=== PATIENT | male | born 1950 | race Caucasian/White ===

== ENCOUNTER 2018-07-22 12:44 | Inpatient (IN) ==
[2018-07-22] MEDS ORDERED: Famotidine PF Inj 20 MG/2 ML Vial IV.PUSH ONE (13:26)
[2018-07-22 13:47] LABS: Baso # (Auto) 0.1 th/mm3 (0.0-0.2); Baso % (Auto) 0.3 % (0.0-2.0); Eos % (Auto) 0.2 % (0.0-4.0); Hematocrit 38.2 % (39.0-51.0); Hemoglobin 12.7 gm/dL (13.0-17.0); Lymph # (Auto) 1.1 th/mm3 (1.0-4.8); Lymph % (Auto) 5.3 % (9.0-44.0); Mean Corpuscular HGB Conc 33.2 % (32.0-36.0); Mean Corpuscular Hemoglobin 31.6 pg (27.0-34.0); Mean Corpuscular Volume 95.1 fL (80.0-100.0); Mean Platelet Volume 8.1 fL (7.0-11.0); Mono # (Auto) 1.1 th/mm3 (0.0-0.9); Mono % (Auto) 5.2 % (0.0-8.0); Neut # (Auto) 18.8 th/mm3 (1.8-7.7); Platelet Count 263 th/mm3 (150-450); Red Blood Count 4.02 mil/mm3 (4.50-5.90); Red Cell Distribution Width 14.9 % (11.6-17.2); White Blood Count 21.1 th/mm3 (4.0-11.0)
[2018-07-22] MEDS ORDERED: Vancomycin Inj 1,200 MG in Sodium Chlor 0.9% Inj 250 ML IV.SIG STA (13:52)
[2018-07-22] MEDS ORDERED: Piperacil/Tazo 4.5 GM Premix 4.5 GM/100 ML BAG IV.SIG STA (13:52)
[2018-07-22 13:53] LABS: Chloride 99 meq/L (98-107); Potassium 3.9 meq/L (3.5-5.1); Sodium 133 meq/L (136-145)
[2018-07-22 13:57] LABS: Albumin 3.1 g/dL (3.4-5.0); Anion Gap 14 meq/L (5-15); Blood Urea Nitrogen 44 mg/dL (7-18); Calcium 9.1 mg/dL (8.5-10.1); Carbon Dioxide 20.2 meq/L (21.0-32.0); Glucose,Random 89 mg/dL (74-106)
[2018-07-22 14:00] LABS: Alanine Aminotransferase 44 U/L (12-78); Aspartate Aminotransferase 35 U/L (15-37); Glomerular Filtration Rate 38 mL/min (>89)
[2018-07-22] MEDS ORDERED: Sodium Chlor 0.9% Inj 500 ML IV.SIG SCH (14:00)
[2018-07-22] MEDS ORDERED: Sod Chloride 0.9% Inj 1,000 ML IV.SIG SCH (14:00)
[2018-07-22 14:02] LABS: Total Protein 7.7 g/dL (6.4-8.2)
[2018-07-22 14:03] LABS: Alkaline Phosphatase 68 U/L (45-117)
--- NOTE | 2018-07-22 14:03 | XR ---
EXAM DATE: 07/22/2018 1:57 PM EST AGE/SEX: 68 years / Male INDICATIONS: . Chest palpitations. CLINICAL DATA: This is the patient's initial encounter. Patient reports that signs and symptoms have been present for 2 days and indicates a pain score of 4/10. MEDICAL/SURGICAL HISTORY: Hypertension. Myocardial infarction. CABG. Cardiac stent. COMPARISON: None available. . FINDINGS: The cardiac and mediastinal contours are within normal limits. The patient is post median sternotomy. There are chronic appearing interstitial changes within the pulmonary parenchyma. There is no pleural effusion. No suspicious mass is seen. The visualized bony structures demonstrate degenerative changes but are grossly intact. Imaging of the lower neck demonstrates possible subcutaneous emphysema. The patient has not had recen t instrumentation or recent attempted central line placement CT imaging through this area would be wa rranted for further assessment. This is seen bilaterally. CONCLUSION: There is subcutaneous emphysema in the neck bilaterally of uncertain etiology. Chronic interstitial changes within the pulmonary parenchyma. Electronically signed by: Jose Elias Kenney MD 07/22/2018 2:02 PM EST
[2018-07-22] MEDS: Sod Chloride 0.9% Inj 1,000 ML IV.SIG SCH ×2 (14:14→18:50)
[2018-07-22] MEDS ORDERED: Morphine Inj 4 MG/ML Vial IV.PUSH ONE (14:18)
--- NOTE | 2018-07-22 14:26 | XR ---
EXAM DATE: 07/22/2018 2:15 PM EST AGE/SEX: 68 years / Male INDICATIONS: Right foot pain. CLINICAL DATA: This is the patient's initial encounter. Patient reports that signs and symptoms have been present for 3 days and indicates a pain score of 6/10. MEDICAL/SURGICAL HISTORY: None. None. COMPARISON: POI, XR FOOT (MIN 3 VIEWS), RIGHT, 04/24/2018. . FINDINGS: Bony structures are intact and in normal alignment. Osseous density is normal. Soft tissues are unre markable. No radiopaque foreign bodies seen. CONCLUSION: Negative for fracture or dislocation. Followup in 7-10 days is suggested if symptoms persist. Electronically signed by: Daniel Kenney MD 07/22/2018 2:24 PM EST
--- NOTE | 2018-07-22 14:33 | ED ---
HPI General Chief complaint: Respiratory Symptoms Stated complaint: sore throat Time Seen by Provider: 07/22/18 13:09 Source: patient and family Mode of arrival: ambulatory Limitations: no limitations History of Present Illness HPI narrative: Patient is a 68-year-old male, past medical history significant for rheumatoid arthritis, renal stones, hypertension and very artery disease with previous CABG, who presents with complaint of "I feel like sh*t." He states that over the last several days he has had a generalized ill feeling with chills but no fevers. He describes intermittently low abdominal cramping but no diarrhea, constipation, dysuria. He also complains of a sore throat and a feeling of head congestion without headache. He feels like he has had some palpitations but does not admit to any actual chest pain or shortness of breath. Initially he denied vomiting but then remembered that he has had approximately one episode of vomiting each morning. Onset (ago): minute(s) Location: neck, chest and abdomen Severity: mild Pain Consistency: constant Relieving factors: none Exacerbating factors: none Treatments prior to arrival: Reports none Related Data Home Medications Medication Instructions Recorded Confirmed aspirin [Aspir-Low] 81 mg PO HS 07/22/18 07/22/18 folic acid 1 mg PO DAILY 07/22/18 07/22/18 hydralazine 50 mg PO TID 07/22/18 07/22/18 hydrocodone-acetaminophen 1 tab PO Q6H PRN 07/22/18 07/22/18 hydroxychloroquine 200 mg PO BID 07/22/18 07/22/18 lisinopril 20 mg PO DAILY 07/22/18 07/22/18 magnesium 500 mg PO QAM 07/22/18 07/22/18 meloxicam 15 mg PO QPM 07/22/18 07/22/18 methotrexate sodium 8 mg PO QWEEK 07/22/18 07/22/18 omeprazole 20 mg PO QPM 07/22/18 07/22/18 prednisone 2.5 mg PO TID 07/22/18 07/22/18 simvastatin 20 mg PO QAM 07/22/18 07/22/18 Allergies Allergy/AdvReac Type Severity Reaction Status Date / Time No Known Allergies Allergy Uncoded 10/30/13 06:40 Review of Systems ROS: all other systems reviewed are negative PMFSH Medical History Medical History Hypertension (Acute) Kidney stones (Acute) Rheumatoid arthritis (Acute) Surgical History Surgical History H/O heart artery stent (Acute) H/O hernia repair (Acute) H/O knee surgery (Acute) H/O shoulder surgery (Acute) Hx of CABG (Acute) Social History Social History Substance History: No History of Abuse Smoking Status: Former smoker How Often Do You Have a Drink Containing Alcohol: 2 to 4 times a month Recent Travel in [place] within the Last 8 Weeks: No Recent Out of Country Travel within the Last 8 Weeks: No Immunization History Tetanus Immunization: >5 Years Exam Narrative Exam Narrative: GENERAL: Elderly male in no acute distress, hoarse voice SKIN: Focused skin assessment warm/dry. No rashes. Slight erythema to the right fifth digit which he states is chronic and has been treated outpatient with wound care. HEAD: Atraumatic. Normocephalic. EYES: Pupils equal and round. No scleral icterus. No injection or drainage. ENT: No nasal bleeding or discharge. Mucous membranes pink and moist. Posterior oropharynx is without erythema, edema, exudate. No sublingual, submandibular, submental induration/swelling. TMs are normal. Some palpable crepitus in the anterior neck. NECK: Trachea midline. No JVD. CARDIOVASCULAR: Tachycardic but regular. No murmur appreciated. Intact and equal peripheral pulses. RESPIRATORY: No accessory muscle use. Clear to auscultation. Breath sounds equal bilaterally. GASTROINTESTINAL: Abdomen soft, nondistended. Slight tenderness in the suprapubic region. Hepatic and splenic margins not palpable. MUSCULOSKELETAL: No obvious deformities. No clubbing. No cyanosis. No edema. NEUROLOGICAL: Awake and alert. No obvious cranial nerve deficits. Motor grossly within normal limits. Normal speech. PSYCHIATRIC: Anxious. Course Consultations Consultation #1: I spoke with Dr Walton, thoracic surgeon, regarding this patient (with possibility of perforated esophagus with perforated diverticulitis ) and was informed that he does not operate on the esophagus and that I should speak with general surgery. Time: 16:10 Consultation #2: I spoke with Dr Vaz, general surgeon whom also did not feel comfortable with this case. Time: 16:23 Consultation #3: I spoke with Dr Gilbert, vascular surgeon system administration manager (whom also takes call for trauma, thoracic, and general surgery) whom agreed to take on the case and asked that I admit him to the hospitalist service at the [facility]. Time: 16:24 Initial Documented Vital Signs Temperature 98.8 F 07/22/18 12:59 Pulse Rate 119 H 07/22/18 12:59 Respiratory Rate 20 07/22/18 12:59 Blood Pressure 133/86 07/22/18 12:59 Pulse Oximetry 97 07/22/18 12:59 Last Documented Vital Signs Temperature 98.8 F 07/22/18 12:59 Pulse Rate 88 07/22/18 17:30 Respiratory Rate 16 07/22/18 17:30 Blood Pressure 132/81 07/22/18 17:30 Pulse Oximetry 95 07/22/18 17:30 Critical Care Time Critical Care Time: Yes Total Critical Care Time: 35 Attestation: Aggregate critical care time was 35 minutes. Time to perform other separately billable procedures was not included in the critical care time. My time did not include minutes spent treating any other patients simultaneously or on activities that did not directly contribute to the patient's treatment. The services I provided to this patient were to treat and/or prevent clinically significant deterioration that could result in: , disability. I provided critical care services requiring my management, as noted below: Chart data review, documentation time, medication orders and management, vital sign assessments/reviewing monitor data, ordering and reviewing lab tests, ordering and interpreting/reviewing x-rays and diagnostic studies, care of the patient and discussion of the patient with the admitting physicians. Medical Decision Making MDM Narrative Medical decision making narrative: Patient is a 68-year-old male with history of previous CABG and hypertension who presents with complaint of generalized ill feeling, palpitations, sore throat. This has been present for several days. On arrival he is tachycardic but hemodynamically stable and afebrile. EKG was without acute ischemic changes. Labs reveal leukocytosis at which time sepsis protocol was initiated and he was given broad-spectrum antibiotics with fluids. Lactate was normal. Chest x-ray did show subcutaneous emphysema within the neck and CT with contrast of the neck, chest, abdomen,/pelvis were ordered. Imaging showed perforated diverticulitis as well as air within the soft tissues of the neck and around the esophagus and posterior to the mediastinum. There was concern for whether this could be secondary to an esophageal perforation and fluconazole was also ordered. I spoke with Dr. Walton, thoracic surgeon on-call, whom did not feel comfortable with this case. I then spoke with Dr. Vaz, general surgeon on-call whom stated the same. It is spoke with Dr. Gilbert takes call for several of the surgical services whom agreed to take on the case and asked that the patient be admitted to the medical service. (Of note, he believes the subcutaneous emphysema above the diaphragm to be related to a ruptured Zenker diverticulum.) I then spoke with Dr. Livingston, hospitalist on-call, whom agreed to the admission the patient was emergently transferred to the [facility] in [facility]. The patient greatly improved prior to transfer and heart rate normalized with the blood pressure remaining stable. His pain was controlled after the morphine as well. Medical Screen Exam Complete: Yes Emergency Medical Condition: Yes Differential Diagnosis Differential Diagnosis: Differential diagnosis includes but is not limited to hyperthyroidism, influenza, sepsis, urinary tract infection, esophageal rupture. Medical Records Medical records reviewed: Yes I reviewed the patient's medical records. Lab Data Lab results reviewed: Yes I reviewed the patient's lab results. Result diagrams: 07/22/18 13:30 07/22/18 13:30 Lab Results 07/22/18 07/22/18 07/22/18 Range/Units 13:30 13:30 13:30 CBC w Diff Auto diff final WBC 21.1 H (4.0-11.0) th/mm3 RBC 4.02 L (4.50-5.90) mil/mm3 Hgb 12.7 L (13.0-17.0) gm/dL Hct 38.2 L (39.0-51.0) % MCV 95.1 (80.0-100.0) fL MCH 31.6 (27.0-34.0) pg MCHC 33.2 (32.0-36.0) % RDW 14.9 (11.6-17.2) % Plt Count 263 (150-450) th/mm3 MPV 8.1 (7.0-11.0) fL Neut % (Auto) 89.0 H (16.0-70.0) % Lymph % (Auto) 5.3 L (9.0-44.0) % [place] % (Auto) 5.2 (0.0-8.0) % Eos % (Auto) 0.2 (0.0-4.0) % Baso % (Auto) 0.3 (0.0-2.0) % Neut # (Auto) 18.8 H (1.8-7.7) th/mm3 Lymph # (Auto) 1.1 (1.0-4.8) th/mm3 [place] # (Auto) 1.1 H (0.0-0.9) th/mm3 Eos # (Auto) 0.0 (0.0-0.4) th/mm3 Baso # (Auto) 0.1 (0.0-0.2) th/mm3 WBC Differential . Differential Comment . D-Dimer Quant (PE/DVT) 1.45 H (0.00-0.50) mg/L FEU Sodium 133 L (136-145) meq/L Potassium 3.9 (3.5-5.1) meq/L Chloride 99 (98-107) meq/L Carbon Dioxide 20.2 L (21.0-32.0) meq/L Anion Gap 14 (5-15) meq/L BUN 44 H (7-18) mg/dL Creatinine 1.80 H (0.60-1.30) mg/dL Estimated GFR 38 L (>89) mL/min Random Glucose 89 (74-106) mg/dL Lactic Acid (0.4-2.0) mmol/L Calcium 9.1 (8.5-10.1) mg/dL Total Bilirubin 0.8 (0.2-1.0) mg/dL AST 35 (15-37) U/L ALT 44 (12-78) U/L Alkaline Phosphatase 68 (45-117) U/L Troponin I Less than 0.02 L (0.02-0.05) ng/mL B-Natriuretic Peptide (0-100) pg/mL Total Protein 7.7 (6.4-8.2) g/dL Albumin 3.1 L (3.4-5.0) g/dL Ur Collection Type Urine Color (Yellw/Straw) Urine Clarity (Clear) Urine pH (5.0-8.5) Ur Specific [place] (1.002-1.035) Urine Protein (Neg-Trace) mg/dL Urine Glucose (UA) (Negative) mg/dL Urine Ketones (Negative) mg/dL Urine Occult Blood (Negative) Urine Nitrate (Negative) Urine Bilirubin (Negative) Urine Ictotest (Negative) Urine Urobilinogen (Less than 2) mg/dL Ur Leukocyte Esterase (Negative) Urine WBC (0-5) /hpf Ur Squamous Epith Cells (0-5) /hpf Ur Microscopic Review Urine Culture Comments Urine Collection Time hours 07/22/18 07/22/18 07/22/18 Range/Units 13:30 14:08 14:30 CBC w Diff WBC (4.0-11.0) th/mm3 RBC (4.50-5.90) mil/mm3 Hgb (13.0-17.0) gm/dL Hct (39.0-51.0) % MCV (80.0-100.0) fL MCH (27.0-34.0) pg MCHC (32.0-36.0) % RDW (11.6-17.2) % Plt Count (150-450) th/mm3 MPV (7.0-11.0) fL Neut % (Auto) (16.0-70.0) % Lymph % (Auto) (9.0-44.0) % [place] % (Auto) (0.0-8.0) % Eos % (Auto) (0.0-4.0) % Baso % (Auto) (0.0-2.0) % Neut # (Auto) (1.8-7.7) th/mm3 Lymph # (Auto) (1.0-4.8) th/mm3 [place] # (Auto) (0.0-0.9) th/mm3 Eos # (Auto) (0.0-0.4) th/mm3 Baso # (Auto) (0.0-0.2) th/mm3 WBC Differential Differential Comment D-Dimer Quant (PE/DVT) (0.00-0.50) mg/L FEU Sodium (136-145) meq/L Potassium (3.5-5.1) meq/L Chloride (98-107) meq/L Carbon Dioxide (21.0-32.0) meq/L Anion Gap (5-15) meq/L BUN (7-18) mg/dL Creatinine (0.60-1.30) mg/dL Estimated GFR (>89) mL/min Random Glucose (74-106) mg/dL Lactic Acid 2.0 (0.4-2.0) mmol/L Calcium (8.5-10.1) mg/dL Total Bilirubin (0.2-1.0) mg/dL AST (15-37) U/L ALT (12-78) U/L Alkaline Phosphatase (45-117) U/L Troponin I (0.02-0.05) ng/mL B-Natriuretic Peptide 41 (0-100) pg/mL Total Protein (6.4-8.2) g/dL Albumin (3.4-5.0) g/dL Ur Collection Type Clean catch Urine Color Yellow (Yellw/Straw) Urine Clarity Cloudy H (Clear) Urine pH 5.0 (5.0-8.5) Ur Specific [place] Greater/equal 1.030 (1.002-1.035) Urine Protein 30 H (Neg-Trace) mg/dL Urine Glucose (UA) Negative (Negative) mg/dL Urine Ketones 15 H (Negative) mg/dL Urine Occult Blood Negative (Negative) Urine Nitrate Negative (Negative) Urine Bilirubin Negative (Negative) Urine Ictotest Negative (Negative) Urine Urobilinogen 0.2 (Less than 2) mg/dL Ur Leukocyte Esterase Negative (Negative) Urine WBC 6-8 H (0-5) /hpf Ur Squamous Epith Cells 0-5 (0-5) /hpf Ur Microscopic Review Microscopic reviewed Urine Culture Comments Culture not ind Urine Collection Time 1430 hours Imaging Data Attestation: I personally reviewed and interpreted this imaging study as follows : Radiologist's impression: Chest X-Ray 07/22/18 13:26 CONCLUSION: There is subcutaneous emphysema in the neck bilaterally of uncertain etiology. Chronic interstitial changes within the pulmonary parenchyma. Abdomen/Pelvis CT 07/22/18 13:52 CONCLUSION: Diverticular disease involving the distal colon with inflammatory changes adjacent to portions of the descending colon and significant retroperitoneal air most voluminously present adjacent to the mid descending colon however also seen in the pelvis, upper abdomen and low middle mediastinum. Foot X-Ray 07/22/18 14:00 CONCLUSION: Negative for fracture or dislocation. Followup in 7-10 days is suggested if symptoms persist. Soft Tissue Neck CT 07/22/18 14:00 CONCLUSION: 1. Subcutaneous and retropharyngeal air. Most likely sources upper airway 2. Findings have been discussed with Dr. Hendricks on today's date. Chest CT 07/22/18 14:12 CONCLUSION: 1. There is extensive subcutaneous emphysema extending throughout the neck, extending along the posterior mediastinum and esophagus. There is limited imaging of the upper abdomen. This demonstrates numerous punctate areas of free intraperitoneal air. Dedicated CT imaging of the abdomen is warranted. No definite source for this is seen on the CT imaging of the chest. ECG Data EKG Prior to Arrival: No Attestation: I personally reviewed and interpreted this ECG as follows: (Sinus tachycardia at a rate of 117 bpm. Slight T wave inversion in lead III and aVF but no other ST or T wave changes.) Discharge Plan Discharge Disposition Patient Disposition: 02 Transfer To [facility] [place] Discharge Condition Condition: Fair Discharge Details Diagnosis: Diverticulitis of colon with perforation, Sepsis, Subcutaneous emphysema Physicians Team ED Provider: Fang Hendricks Attending Provider: Rickey Livingston Other Providers: Anahy Gilbert Discharge Interventions Interventions: ED Discharge Assessment Last Done: 07/22/18 17:30 Vital Signs Last Done: 07/22/18 16:30 Status ED Status: Left Department Discharge Information Discharge Date/Time: 07/22/18 17:30
[2018-07-22 14:43] LABS: Clarity,Urine Cloudy (Clear); Color,Urine Yellow (Yellw/Straw); Glucose,Urine (UA) Negative (Negative); Leukocyte Esterase,Urine Negative (Negative); Nitrite,Urine Negative (Negative); Specific Gravity,Urine Greater/Equal 1.030 (1.002-1.035); Urobilinogen,Urine 0.2 mg/dL (Less than 2)
[2018-07-22 14:48] LABS: Bilirubin,Urine Negative (Negative); Collection Time,Urine 1430 hours; Ictotest,Urine Negative (Negative)
[2018-07-22 14:53] LABS: Squamous Epithelial Cell,Urine 0-5 /hpf (0-5)
--- NOTE | 2018-07-22 16:01 | CT ---
EXAM DATE: 07/22/2018 3:39 PM EST AGE/SEX: 68 years / Male INDICATIONS: Palpitations. CLINICAL DATA: This is the patient's initial encounter. Patient reports that signs and symptoms have been present for 2 days and indicates a pain score of 4/10. MEDICAL/SURGICAL HISTORY: Cardiovascular disease. Hypertension. Renal calculi. Coronary artery st ent. CABG. Hernia repair. RADIATION DOSE: 22.67 CTDI (mGy) ; Combined studies COMPARISON: No prior exams available for comparison. TECHNIQUE: Multiple contiguous axial images were obtained through the chest during bolus infusion of 50 ml Visipaque 320 (iodixanol) nonionic water-soluble contrast as a cumulative dose for multiple e xams. Images were obtained in suspended respiration using multiple row detector helical technique. Using automated exposure control and adjustment of the mA and/or kV according to patient size, radia tion dose was kept as low as reasonably achievable to obtain optimal diagnostic quality images. DICO M format image data is available electronically for review and comparison. FINDINGS: The examination demonstrates extensive subcutaneous emphysema involving the neck and the posterior me diastinum. This can be tracked all the way along the course of the esophagus and into the abdomen. Th ere are multiple punctate collections of free intraperitoneal air seen within the abdominal cavity. D edicated CT imaging through the abdomen is warranted for further assessment. The pulmonary parenchyma demonstrates COPD changes. No pneumothorax is seen. No suspicious mass lesio n is identified. There is no significant hilar or mediastinal adenopathy present. The heart is normal in size. There i s atherosclerotic plaquing in the coronary arteries. The visualized bony structures demonstrate degenerative changes but are otherwise intact. CONCLUSION: 1. There is extensive subcutaneous emphysema extending throughout the neck, extending along the post erior mediastinum and esophagus. There is limited imaging of the upper abdomen. This demonstrates num erous punctate areas of free intraperitoneal air. Dedicated CT imaging of the abdomen is warranted. N o definite source for this is seen on the CT imaging of the chest. Electronically signed by: Jose Elias Kenney MD 07/22/2018 4:00 PM EST
--- NOTE | 2018-07-22 16:03 | CT ---
EXAM DATE: 07/22/2018 3:42 PM EST AGE/SEX: 68 years / Male INDICATIONS: Generalized abdominal pain. CLINICAL DATA: This is the patient's initial encounter. Patient reports that signs and symptoms have been present for 2 days and indicates a pain score of 4/10. MEDICAL/SURGICAL HISTORY: Cardiovascular disease. Hypertension. Renal calculi. Coronary arter y stent. CABG. Hernia repair. ORAL CONTRAST: No oral contrast ingested. RADIATION DOSE: 22.67 CTDI (mGy) ; Combined studies COMPARISON: [facility]PO, CHEST 2V PA&LAT, 07/22/2018. . TECHNIQUE: Multiple contiguous axial images were obtained through the abdomen and pelvis following b olus infusion of 50 ml Visipaque 320 (iodixanol) nonionic water-soluble contrast as a cumulative do se for multiple exams. No oral contrast ingested. Using automated exposure control and adjustment of the mA and/or kV according to patient size, radiation dose was kept as low as reasonably achievable to obtain optimal diagnostic quality images. DICOM format image data is available electronically for review and comparison. FINDINGS: There is a moderate quantity of retroperitoneal air present seen mainly in the left retrope ritoneal abdomen and pelvis with significant low middle mediastinal air also noted. Liver: Mildly diminished hepatic attenuation which may reflect steatosis. No focal mass or biliary du ctal dilatation. The gallbladder is moderately distended with small dependent stones noted. No defini te pericholecystic inflammatory changes at present. Spleen: Homogeneous density without enlargement. Pancreas: Unremarkable without mass or calcification. Kidneys: Tiny bilateral nonobstructing kidney stones present involving upper mid and lower pole pura ecting systems on both sides. No evidence of ureteral stone or hydronephrosis. Adrenal Glands: Unremarkable. Aorta: The aorta and proximal iliac vessels are grossly unremarkable without aneurysmal dilation. Bowel/Mesentery: There is diverticular disease involving the distal colon. There are mild inflammato ry changes adjacent to portions of the descending colon where significant quantity of extraluminal ga s is present worrisome for site of diverticular perforation. No discrete fluid density abscess is anayeli ntified. There is no significant free pneumoperitoneum at present. Abdominal Wall: Intact. Retroperitoneum: No evidence of periaortic or retrocaval adenopathy. Retroperitoneal air primarily p resent in the left abdomen and pelvis however also extending into the low middle mediastinum Bladder: Contours are smooth. Reproductive Organs: No abnormal masses or calcifications seen. Inguinal: The inguinal region is unremarkable without evidence of adenopathy. Bony Structures: Unremarkable. CONCLUSION: Diverticular disease involving the distal colon with inflammatory changes adjacent to portions of the descending colon and significant retroperitoneal air most voluminously present adjacent to the mid d escending colon however also seen in the pelvis, upper abdomen and low middle mediastinum. Electronically signed by: Zach Jc MD 07/22/2018 4:02 PM EST
--- NOTE | 2018-07-22 16:15 | CT ---
EXAM DATE: 07/22/2018 3:53 PM EST AGE/SEX: 68 years / Male INDICATIONS: Sore throat. CLINICAL DATA: This is the patient's initial encounter. Patient reports that signs and symptoms have been present for 2 days and indicates a pain score of 4/10. MEDICAL/SURGICAL HISTORY: Cardiovascular disease. Renal calculi. Hypertension. CABG. Coronary ar gabriel stent. Hernia repair. RADIATION DOSE: 22.67 CTDI (mGy) ; Combined studies COMPARISON: No prior exams available for comparison. TECHNIQUE: Helical acquisition was performed using a multirow detector CT scanner during the adminis tration of 50 ml Visipaque 320 (iodixanol) nonionic water-soluble contrast as a cumulative dose for multiple exams. Using automated exposure control and adjustment of the mA and/or kV according to pat ient size, radiation dose was kept as low as reasonably achievable to obtain optimal diagnostic quali ty images. DICOM format image data is available electronically for review and comparison. FINDINGS: There is a large amount of subcutaneous and retropharyngeal air extending from skull base into the ab domen majority of the areas in the soft tissues of the neck. Most likely source of this area is the p iriformis on the left side. There is no fluid. There is no adenopathy Minimal carotid body calcifications are evident CONCLUSION: 1. Subcutaneous and retropharyngeal air. Most likely sources upper airway 2. Findings have been discussed with Dr. Hendricks on today's date. Electronically signed by: Daniel Kenney MD 07/22/2018 4:13 PM EST
[2018-07-22] MEDS ORDERED: Bisacodyl 10 MG Supp RECTAL PRN (16:46)
--- NOTE | 2018-07-22 18:43 | P.HP ---
History of Present Illness Service: Hospitalist Primary Care Physician: Mayela Mondragon Chief Complaint: Nausea, vomiting History of Present Illness: Mr. Moreira a pleasant 68-year-old male with a history of CAD status post CABG, hypertension who presented to the emergency department due to generalized illness, nausea and vomiting. On , 07/18/2018, patient started having cold symptoms. He felt chills. Around 8 PM he went to sleep and slept most of the day on 07/19/2018. He continued to have weakness and anorexia. He started developing nausea vomiting on 07/20/2018. He did not have any violent vomiting. He had vomiting and a lot of gagging. He had small bowel movements but denies any hematochezia or melena. No diarrhea or constipation. He denies any changes in bladder habits. He denies any hematemesis, hemoptysis or coffee-ground emesis. ED workup shows leukocytosis with WBC 20 1.1K, imaging studies shows retroperitoneal and retropharyngeal air. Patient is hemodynamically stable. Patient was given fluconazole, vancomycin and Zosyn in the ED. Past medical history: Hypertension, CAD status post stent placement, CABG Past surgical history: 2 knee surgeries, shoulder surgery, hernia repair, CABG Social history: Patient does not use tobacco or illicit drugs. He drinks socially. Family history: Grandmother had Alzheimer's. Inpatient Certification: I certify that the inpatient services were ordered in accordance with Medicare regulations governing the order. This includes certification that hospital inpatient services are reasonable and necessary and in the case of services not specified as inpatient-only under 42 CFR 419.22(n), that they are appropriately provided as inpatient services in accordance to with the 2-midnight benchmark under 43 CFR 412.3(e) Estimated Total Length of Stay (Days): 3 Plans for Post Hospital Care: Not yet determined Review of Systems All other systems reviewed negative except as stated in HPI PMFSH - History History Provided By: Patient, Family Member - Medical History Medical History: Medical History (Last Reviewed 07/22/18 @ 14:31 by Fang Hendricks MD) Hypertension Kidney stones Rheumatoid arthritis - Surgical History Surgical History: Surgical History (Last Reviewed 07/22/18 @ 14:31 by Fang Hendricks MD) H/O heart artery stent H/O hernia repair H/O knee surgery H/O shoulder surgery Hx of CABG - Tobacco History Smoking Status: Former smoker - Alcohol History How Often Do You Have a Drink Containing Alcohol: 2 to 4 times a month - Substance Use History Substance History: No History of Abuse - Travel History Recent Travel in the [place] Within the Last 8 Weeks: No Recent Travel Out of the Country Within the Last 8 Weeks: No - Immunization History Tetanus Immunization: >5 Years Medications and Allergies Active Medications: Active Medications Acetaminophen (Tylenol) 650 mg PO Q4H PRN PRN Reason: Headache, fever, pain 1-4 Al Hydroxide/Mg Hydroxide (Milk Of Magnesia Liq) 30 ml PO Q12H PRN PRN Reason: Mild Constipation Bisacodyl (Dulcolax Supp) 10 mg RECTAL DAILY PRN PRN Reason: SEVERE CONSITIPATION Sodium Chloride (Ns Inj) 1,000 mls @ 0 mls/hr IV.SIG .Q0M [facility] Last Infusion: 07/22/18 16:40 Dose: Infused Sodium Chloride (Ns Inj) 1,000 mls @ 0 mls/hr IV.SIG .Q0M [facility] Last Admin: 07/22/18 16:51 Dose: 999 mls/hr Sodium Chloride (Ns Inj) 1,000 mls @ 100 mls/hr IV.CONT .Q10H [facility] Lactulose (Lactulose Liq) 30 ml PO DAILY PRN PRN Reason: SEVERE CONSITIPATION Morphine Sulfate (Morphine Inj) 4 mg IV.PUSH Q4H PRN PRN Reason: Pain 5-10 Ondansetron HCl (Zofran Inj) 4 mg IV.PUSH Q6H PRN PRN Reason: NAUSEA OR VOMITING Sennosides (Senokot) 17.2 mg PO Q12H PRN PRN Reason: Moderate Constipation Sodium Chloride (Ns Flush) 2 ml IV.FLUSH PRN PRN PRN Reason: FLUSH AFTER USING IV ACCESS Allergies Allergy/AdvReac Type Severity Reaction Status Date / Time No Known Allergies Allergy Uncoded 10/30/13 06:40 Home Medications Medication Instructions Recorded Confirmed Type aspirin [Aspir-Low] 81 mg PO HS 07/22/18 07/22/18 History folic acid 1 mg PO DAILY 07/22/18 07/22/18 History hydralazine 50 mg PO TID 07/22/18 07/22/18 History hydrocodone-acetaminophen 1 tab PO Q6H PRN 07/22/18 07/22/18 History hydroxychloroquine 200 mg PO BID 07/22/18 07/22/18 History lisinopril 20 mg PO DAILY 07/22/18 07/22/18 History magnesium 500 mg PO QAM 07/22/18 07/22/18 History meloxicam 15 mg PO QPM 07/22/18 07/22/18 History methotrexate sodium 8 mg PO QWEEK 07/22/18 07/22/18 History omeprazole 20 mg PO QPM 07/22/18 07/22/18 History prednisone 2.5 mg PO TID 07/22/18 07/22/18 History simvastatin 20 mg PO QAM 07/22/18 07/22/18 History Exam Vital signs: Vital Signs 07/22/18 12:59 07/22/18 14:00 07/22/18 15:05 Temperature 98.8 F Pulse Rate 119 H 92 H 88 Respiratory Rate 20 18 Blood Pressure 133/86 114/73 Pulse Oximetry 97 98 99 07/22/18 16:00 07/22/18 16:30 07/22/18 17:30 Temperature Pulse Rate 87 87 88 Respiratory Rate 18 16 Blood Pressure 114/75 132/81 Pulse Oximetry 96 96 95 Intake & Output 07/21/18 07/22/18 07/22/18 18:59 06:59 18:59 Intake Total 1861 Balance 1861 Weight 77.3 kg Intake: IV 1861 Zosyn 4.5 GM Premix 4.5 gm In 100 / 100 100 ml @ 200 mls/hr IV.SIG STAT STA Rx#:[id number] NS Inj 1,000 ML @ Wide Open IV. 1000 / 1000 SIG .Q0M [facility] Rx#:[id number] NS Inj 500 ML @ 1000 mls/hr IV. 500 / 500 SIG BOLUS [facility] Rx#:[id number] Vancomycin Inj 1,200 MG In NS 262 / 262 Inj 250 ML @ 250 mls/hr IV.SIG STAT STA Rx#:[id number] Narrative: GENERAL: This is a well-nourished, well-developed patient, in no apparent distress. SKIN: No rashes, ecchymoses or lesions. Warm and dry. HEAD: Atraumatic. Normocephalic. No temporal or scalp tenderness. EYES: Pupils equal round and reactive. No injection or drainage. ENT: Nose without bleeding, purulent drainage or septal hematoma. Airway patent. NECK: Trachea midline. No lymphadenopathy. Supple, nontender, no meningeal signs. CARDIOVASCULAR: Regular rate and rhythm without murmurs, gallops, or rubs. No JVD. RESPIRATORY: Clear to auscultation. Breath sounds equal bilaterally. No wheezes , rales, or rhonchi. GASTROINTESTINAL: Abdomen soft, mild tenderness in the lower abdominal area, nondistended. No guarding. MUSCULOSKELETAL: Extremities without clubbing, cyanosis, or edema. NEUROLOGICAL: Awake and alert. Cranial nerves II through XII intact. No focal neurological deficits. Normal speech. Results - Labs CBC & Chem 7: 07/22/18 13:30 07/22/18 13:30 Labs: Laboratory Results - last 24 hr 07/22/18 07/22/18 07/22/18 13:30 13:30 13:30 CBC w Diff Auto diff final WBC 21.1 H RBC 4.02 L Hgb 12.7 L Hct 38.2 L MCV 95.1 MCH 31.6 MCHC 33.2 RDW 14.9 Plt Count 263 MPV 8.1 Neut % (Auto) 89.0 H Lymph % (Auto) 5.3 L [place] % (Auto) 5.2 Eos % (Auto) 0.2 Baso % (Auto) 0.3 Neut # (Auto) 18.8 H Lymph # (Auto) 1.1 [place] # (Auto) 1.1 H Eos # (Auto) 0.0 Baso # (Auto) 0.1 WBC Differential . Differential Comment . D-Dimer Quant (PE/DVT) 1.45 H Sodium 133 L Potassium 3.9 Chloride 99 Carbon Dioxide 20.2 L Anion Gap 14 BUN 44 H Creatinine 1.80 H Estimated GFR 38 L Random Glucose 89 Lactic Acid Calcium 9.1 Total Bilirubin 0.8 AST 35 ALT 44 Alkaline Phosphatase 68 Troponin I Less than 0.02 L B-Natriuretic Peptide Total Protein 7.7 Albumin 3.1 L Ur Collection Type Urine Color Urine Clarity Urine pH Ur Specific [place] Urine Protein Urine Glucose (UA) Urine Ketones Urine Occult Blood Urine Nitrate Urine Bilirubin Urine Ictotest Urine Urobilinogen Ur Leukocyte Esterase Urine WBC Ur Squamous Epith Cells Ur Microscopic Review Urine Culture Comments Urine Collection Time 11/12/18 11/12/18 11/12/18 13:30 14:08 14:30 CBC w Diff WBC RBC Hgb Hct MCV MCH MCHC RDW Plt Count MPV Neut % (Auto) Lymph % (Auto) [place] % (Auto) Eos % (Auto) Baso % (Auto) Neut # (Auto) Lymph # (Auto) [place] # (Auto) Eos # (Auto) Baso # (Auto) WBC Differential Differential Comment D-Dimer Quant (PE/DVT) Sodium Potassium Chloride Carbon Dioxide Anion Gap BUN Creatinine Estimated GFR Random Glucose Lactic Acid 2.0 Calcium Total Bilirubin AST ALT Alkaline Phosphatase Troponin I B-Natriuretic Peptide 41 Total Protein Albumin Ur Collection Type Clean catch Urine Color Yellow Urine Clarity Cloudy H Urine pH 5.0 Ur Specific [place] Greater/equal 1.030 Urine Protein 30 H Urine Glucose (UA) Negative Urine Ketones 15 H Urine Occult Blood Negative Urine Nitrate Negative Urine Bilirubin Negative Urine Ictotest Negative Urine Urobilinogen 0.2 Ur Leukocyte Esterase Negative Urine WBC 6-8 H Ur Squamous Epith Cells 0-5 Ur Microscopic Review Microscopic reviewed Urine Culture Comments Culture not ind Urine Collection Time 1430 - Imaging Impressions Chest X-Ray 07/22/18 13:26 CONCLUSION: There is subcutaneous emphysema in the neck bilaterally of uncertain etiology. Chronic interstitial changes within the pulmonary parenchyma. Abdomen/Pelvis CT 07/22/18 13:52 CONCLUSION: Diverticular disease involving the distal colon with inflammatory changes adjacent to portions of the descending colon and significant retroperitoneal air most voluminously present adjacent to the mid descending colon however also seen in the pelvis, upper abdomen and low middle mediastinum. Foot X-Ray 07/22/18 14:00 CONCLUSION: Negative for fracture or dislocation. Followup in 7-10 days is suggested if symptoms persist. Soft Tissue Neck CT 07/22/18 14:00 CONCLUSION: 1. Subcutaneous and retropharyngeal air. Most likely sources upper airway 2. Findings have been discussed with Dr. Hendricks on today's date. Chest CT 07/22/18 14:12 CONCLUSION: 1. There is extensive subcutaneous emphysema extending throughout the neck, extending along the posterior mediastinum and esophagus. There is limited imaging of the upper abdomen. This demonstrates numerous punctate areas of free intraperitoneal air. Dedicated CT imaging of the abdomen is warranted. No definite source for this is seen on the CT imaging of the chest. Caprini VTE Risk Assessment Caprini VTE Risk Assessment: No/Low Risk (score <= 1) Caprini Risk Assessment Model: Point Value = 1 Point Value = 2 Point Value = 3 Point Value = 5 Age 41-60 Minor surgery BMI > 25 kg/m2 Swollen legs Varicose veins or History of unexplained or recurrent spontaneous Oral contraceptives or hormone replacement Sepsis (< 1 month) Serious lung disease, including pneumonia (< 1 month) Abnormal pulmonary function Acute myocardial infarction Congestive heart failure (< 1 month) History of inflammatory bowel disease Medical patient at bed rest Age 61-74 Arthroscopic surgery Major open surgery (> 45 min) Laparoscopic surgery (> 45 min) Malignancy Confined to bed (> 72 hours) Immobilizing plaster cast Central venous access Age >= 75 History of VTE Family history of VTE Factor V Leiden Prothrombin [id number] Lupus anticoagulant Anticardiolipin antibodies Elevated serum homocysteine Heparin-induced thrombocytopenia Other congenital or acquired thrombophilia Stroke (< 1 month) Elective arthroplasty Hip, pelvis, or leg fracture Acute spinal cord injury (< 1 month) Prophylaxis Regimen: Total Risk Factor Score Risk Level Prophylaxis Regimen 0-1 Low Early ambulation 2 Moderate Order ONE of the following: *Sequential Compression Device (SCD) *Heparin 5000 units SQ BID 3-4 Higher Order ONE of the following medications: *Heparin 5000 units SQ TID *Enoxaparin/Lovenox 40 mg SQ daily (WT < 150 kg, CrCl > 30 mL/min) *Enoxaparin/Lovenox 30 mg SQ daily (WT < 150 kg, CrCl > 10-29 mL/min) *Enoxaparin/Lovenox 30 mg SQ BID (WT < 150 kg, CrCl > 30 mL/min) AND/OR *Sequential Compression Device (SCD) 5 or more Highest Order ONE of the following medications: *Heparin 5000 units SQ TID (Preferred with Epidurals) *Enoxaparin/Lovenox 40 mg SQ daily (WT < 150 kg, CrCl > 30 mL/min) *Enoxaparin/Lovenox 30 mg SQ daily (WT < 150 kg, CrCl > 10-29 mL/min) *Enoxaparin/Lovenox 30 mg SQ BID (WT < 150 kg, CrCl > 30 mL/min) AND *Sequential Compression Device (SCD) Assessment and Plan - Plan Mr. Moreira is a pleasant 68-year-old male with a history of hypertension, CAD who presents to the emergency department on 07/22/2018 due to 4-5-day duration of not feeling well, nausea vomiting and anorexia. ED work up shows leukocytosis with WBC 20 1.1K, CT studies finding of retropharyngeal and retroperitoneal air. Patient is being transferred to the main hospital. General surgeon Dr. Douglas is been consulted. 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 Discussed with Dr. Douglas who will see patient tonight. Continue IV fluid. Continue morphine for pain. Continue Zosyn 4.5 g every 6 hours for any gram-negative and anaerobic infection CAD s/p CABG Hypertension Currently hemodynamically stable. No acute concerns. Hold off using lisinopril. If needed, consider calcium channel blockers. Probable acute kidney injury next line creatinine 1.80 today. Previous creatinine recorded in the EMR is below 1.0 in 2013. Repeat BMP in the morning. Continue IV fluid. Full code. SCDs.
[2018-07-22] MEDS: Sod Chloride 0.9% Inj 1,000 ML IV.CONT SCH (18:59)
[2018-07-22] MEDS: Piperacil/Tazo 4.5 GM Premix 4.5 GM/100 ML BAG IV.SIG SCH ×2 (19:04→23:58)
[2018-07-22] MEDS ORDERED: Diatrizoate Meglum/Diatrizoate Sod Liq 120 ML Bottle (for RAD diag) PO ONE (20:00)
--- NOTE | 2018-07-22 20:38 | FL ---
EXAM DATE: 07/22/2018 8:29 PM EST AGE/SEX: 68 years / Male INDICATIONS: Free air, rule out esophageal perforation. CLINICAL DATA: This is the patient's initial encounter. Patient reports that signs and symptoms have been present for 2 days and indicates a pain score of 1/10. MEDICAL/SURGICAL HISTORY: Cardiovascular disease. CABG. Vocal cords. COMPARISON: [facility], CT SOFT TISSUE NECK W CONTRAST, 07/22/2018. [facility], CT CHEST W CONTRAST, 07/22/20 18. [facility], CT ABDOMEN & PELVIS W CONTRAST, 07/22/2018. . FLUORO TIME: 1.5 min IMAGE COUNT: 10 FINDINGS: The examination was performed with water-soluble contrast. The patient initiates swallowing normally. Moderate cricopharyngeal achalasia. There is prompt passage of water-soluble contrast through the es ophagus. No evidence of stricture or leak. There is no residual contrast seen in the esophagus. CONCLUSION: No evidence of esophageal leak. Electronically signed by: Glenn Dixon MD 07/22/2018 8:36 PM EST
[2018-07-22] MEDS: Morphine Inj 4 MG/ML Vial IV.PUSH PRN (20:59)
--- NOTE | 2018-07-22 22:17 | MB ---
cc: Anahy Gilbert MD DATE: 07/22/2018 CONSULTING PHYSICIAN: Anhay Gilbert MD REASON FOR CONSULTATION: Perforated viscus possible esophageal. HISTORY OF PRESENT ILLNESS: This 68-year-old gentleman with cardiac previous history, presents with several days of malaise and weakness. The patient noted about 5 days ago to be having chills and fever, some abdominal pain, did not feel well, and had some nausea and vomiting. He did a little better over the weekend and then got worse today in the sense that he felt more nauseous with some pain in the upper abdomen and just simple weakness and malaise. The patient presented to the emergency room, underwent CT of the chest, abdomen and pelvis and was noted to have a fair amount of air around pharynx and thoracic esophagus, question arises on possible source of this, i.e., perforation. PAST MEDICAL HISTORY: He does have coronary artery disease. PAST SURGICAL HISTORY: Coronary artery bypass surgery, coronary artery angioplasty and stenting, two knee surgeries, shoulder surgery and hernia repair. SOCIAL HISTORY: The patient does not smoke or drink. PHYSICAL EXAMINATION: GENERAL: Reveals a pleasant 68-year-old gentleman, not appearing very ill at this time. HEENT: Normocephalic. No trauma to the head. Pupils equal, reactive. Extraocular muscles intact. NECK: Bilateral carotid pulses, faint left-sided bruit and the patient does not have any masses in the neck. He does have some crepitus, however, in the neck, which is consistent with the CT findings. CHEST: Bilateral breath sounds. HEART: Regular rate and rhythm. Scar from previous sternotomy. ABDOMEN: Soft. Active bowel sounds. No rebound, no guarding, no masses. Tender in the left lower quadrant and suprapubic area, but nothing out of ordinary other than that. Groins are normal. EXTREMITIES: The patient has bilateral femoral, popliteal, dorsalis pedis pulses. No signs of vascular deficit. BACK: Normal. IMPRESSION AND RECOMMENDATIONS: I reviewed laboratory and diagnostic procedures. This patient has leukocytosis with a left shift. He does have air tracking around the esophagus and a fair amount of it up in the pharynx. He, however, does have air in the retroperitoneum of the abdomen, so this is an unusual situation. Differential diagnosis clearly includes a perforated esophagus; however, this is very low on the list. Patients with Boerhaave syndrome are usually very sick, almost catatonic in pain. This is clearly not that. Another option would be perforated epiphrenic or Zenker's diverticulum of the esophagus, or sometimes pleural bleb that will cause the same thing in the right track retroperitoneally, but most likely the patient has perforated diverticulitis of the left colon that eroded retroperitoneally and that is why it is tracking up. The patient did have colonoscopy 2 years ago and has no masses. At this point, I believe the best course of therapy is to place the patient on IV antibiotics, IV fluids as he is, and I just ordered a barium swallow study to evaluate the pharynx and esophagus. I really do not believe the patient has esophageal perforation, but you never know. I will continue to follow the patient with you. CRITICAL CARE TIME: 34 minutes. MD JOLLY Morton/nichelle , 08:18 PM , 08:28 PM
[2018-07-23] MEDS: Morphine Inj 4 MG/ML Vial IV.PUSH PRN ×5 (01:17→23:02)
[2018-07-23] MEDS: Sod Chloride 0.9% Inj 1,000 ML IV.CONT SCH ×2 (04:59→18:05)
[2018-07-23] MEDS: Piperacil/Tazo 4.5 GM Premix 4.5 GM/100 ML BAG IV.SIG SCH ×3 (05:57→18:06)
[2018-07-23] MEDS: Folic Acid 1 MG Tablet PO SCH (09:53)
--- NOTE | 2018-07-23 10:43 | P.PNVS ---
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 As noted in my original consultation I evaluate the patient carefully and he certainly did not appear clinically ill as most patients with Boerhaave syndrome would. Patients with Boerhaave syndrome I usually sweating, pale almost catatonic in chest pain and guarding in all 4 quadrants Those patients deteriorate very rapidly and unless surgery is performed they dying a very short period of time This gentleman appeared quite comfortable with mild abdominal pain and clearly not septic Therefore the remaining diagnoses were possible rupture of a Zenker's diverticulum or an intra-abdominal source. Esophageal swallow clearly shows clean esophagus without any lesions or leaks. On the other hand patient does have some thickening of the descending colon and proximal sigmoid as well as tracking air in the retroperitoneum therefore working diagnosis should be perforated diverticulum of the proximal sigmoid colon with tracking into the retroperitoneum and higher up into the chest Today abdomen is soft with active bowel sounds and tender in the left hemiabdomen Patient states the tenderness started last night White count is normalizing and left shift is receding Would keep on IV antibiotics will advance diet and repeat CT scan of the abdomen and pelvis on After that if patient does well he can go home on oral antibiotics follow-up with the gastroenterology for repeat colonoscopy in about a month and depending on the findings likelihood is we will schedule him for left colon/sigmoid elective resection In the face of retroperitoneal perforation dissection this is not the type of diverticulitis that should be left and only treated medically likely due for majority of diverticular disease these days Objective Vital Signs / I&O: Vital Signs 07/22/18 12:59 07/22/18 14:00 07/22/18 15:05 Temperature 98.8 F Pulse Rate 119 H 92 H 88 Respiratory Rate 20 18 Blood Pressure 133/86 114/73 Pulse Oximetry 97 98 99 07/22/18 16:00 07/22/18 16:30 07/22/18 17:30 Temperature Pulse Rate 87 87 88 Respiratory Rate 18 16 Blood Pressure 114/75 132/81 Pulse Oximetry 96 96 95 07/22/18 20:51 07/23/18 00:00 07/23/18 00:05 Temperature 97.9 F 97.9 F Pulse Rate 93 H 84 81 Respiratory Rate 18 16 Blood Pressure 164/76 H 150/92 H Pulse Oximetry 97 97 07/23/18 04:00 07/23/18 07:49 07/23/18 08:00 Temperature 100.3 F H 99.8 F H Pulse Rate 99 H 118 H Respiratory Rate 16 17 Blood Pressure 143/90 H 148/82 H Pulse Oximetry 100 99 94 L Intake & Output 07/22/18 07/23/18 07/23/18 18:59 06:59 18:59 Intake Total 2962 / 2962 1300 / 1300 Output Total 400 / 400 Balance 2962 / 2962 900 / 900 Weight 77.3 kg 81.6 kg Intake: IV 2962 / 2962 1300 / 1300 NS Inj 1,000 ML @ 100 mls/hr IV 1000 / 1000 .CONT .Q10H DEMETRIUS Rx#:[id number] Diflucan 200 mg Premix Bag 100 100 / 100 ML @ 100 mls/hr IV.SIG ONCE ONE Rx#:[id number] Zosyn 4.5 GM Premix 4.5 gm In 100 / 100 300 / 300 100 ml @ 200 mls/hr IV.SIG Q6H DEMETRIUS Rx#:[id number] NS Inj 1,000 ML @ Wide Open IV. 1999 / 1999 SIG .Q0M DEMETRIUS Rx#:[id number] NS Inj 500 ML @ 1000 mls/hr IV. 500 / 500 SIG BOLUS DEMETRIUS Rx#:[id number] Vancomycin Inj 1,200 MG In NS 262 / 262 Inj 250 ML @ 250 mls/hr IV.SIG STAT STA Rx#:[id number] Output: Urine 400 / 400 Laboratory Results - last 24 hr 07/22/18 07/22/18 07/22/18 13:30 13:30 13:30 CBC w Diff Auto diff final WBC 21.1 H RBC 4.02 L Hgb 12.7 L Hct 38.2 L MCV 95.1 MCH 31.6 MCHC 33.2 RDW 14.9 Plt Count 263 MPV 8.1 Neut % (Auto) 89.0 H Lymph % (Auto) 5.3 L [place] % (Auto) 5.2 Eos % (Auto) 0.2 Baso % (Auto) 0.3 Neut # (Auto) 18.8 H Lymph # (Auto) 1.1 [place] # (Auto) 1.1 H Eos # (Auto) 0.0 Baso # (Auto) 0.1 WBC Differential . Differential Comment . D-Dimer Quant (PE/DVT) 1.45 H Sodium 133 L Potassium 3.9 Chloride 99 Carbon Dioxide 20.2 L Anion Gap 14 BUN 44 H Creatinine 1.80 H Estimated GFR 38 L Random Glucose 89 Lactic Acid Calcium 9.1 Total Bilirubin 0.8 AST 35 ALT 44 Alkaline Phosphatase 68 Troponin I Less than 0.02 L B-Natriuretic Peptide Total Protein 7.7 Albumin 3.1 L Ur Collection Type Urine Color Urine Clarity Urine pH Ur Specific [place] Urine Protein Urine Glucose (UA) Urine Ketones Urine Occult Blood Urine Nitrate Urine Bilirubin Urine Ictotest Urine Urobilinogen Ur Leukocyte Esterase Urine WBC Ur Squamous Epith Cells Ur Microscopic Review Urine Culture Comments Urine Collection Time 07/22/18 07/22/18 07/22/18 13:30 14:08 14:30 CBC w Diff WBC RBC Hgb Hct MCV MCH MCHC RDW Plt Count MPV Neut % (Auto) Lymph % (Auto) [place] % (Auto) Eos % (Auto) Baso % (Auto) Neut # (Auto) Lymph # (Auto) [place] # (Auto) Eos # (Auto) Baso # (Auto) WBC Differential Differential Comment D-Dimer Quant (PE/DVT) Sodium Potassium Chloride Carbon Dioxide Anion Gap BUN Creatinine Estimated GFR Random Glucose Lactic Acid 2.0 Calcium Total Bilirubin AST ALT Alkaline Phosphatase Troponin I B-Natriuretic Peptide 41 Total Protein Albumin Ur Collection Type Clean catch Urine Color Yellow Urine Clarity Cloudy H Urine pH 5.0 Ur Specific [place] Greater/equal 1.030 Urine Protein 30 H Urine Glucose (UA) Negative Urine Ketones 15 H Urine Occult Blood Negative Urine Nitrate Negative Urine Bilirubin Negative Urine Ictotest Negative Urine Urobilinogen 0.2 Ur Leukocyte Esterase Negative Urine WBC 6-8 H Ur Squamous Epith Cells 0-5 Ur Microscopic Review Microscopic reviewed Urine Culture Comments Culture not ind Urine Collection Time 1430 Microbiology 07/22/18 14:30 Influenza Types A,B Antigen - Final Nasal Wash Negative for FLU A and B antigen Infection due to influenza A or B cannot be ruled out since the antigen present in the sample may be below the detection limit of the test. Impressions Upper GI/Barium Swallow X-Ray 07/22/18 00:00 CONCLUSION: No evidence of esophageal leak. Chest X-Ray 07/22/18 13:26 CONCLUSION: There is subcutaneous emphysema in the neck bilaterally of uncertain etiology. Chronic interstitial changes within the pulmonary parenchyma. Abdomen/Pelvis CT 07/22/18 13:52 CONCLUSION: Diverticular disease involving the distal colon with inflammatory changes adjacent to portions of the descending colon and significant retroperitoneal air most voluminously present adjacent to the mid descending colon however also seen in the pelvis, upper abdomen and low middle mediastinum. Foot X-Ray 07/22/18 14:00 CONCLUSION: Negative for fracture or dislocation. Followup in 7-10 days is suggested if symptoms persist. Soft Tissue Neck CT 07/22/18 14:00 CONCLUSION: 1. Subcutaneous and retropharyngeal air. Most likely sources upper airway 2. Findings have been discussed with Dr. Hendricks on today's date. Chest CT 07/22/18 14:12 CONCLUSION: 1. There is extensive subcutaneous emphysema extending throughout the neck, extending along the posterior mediastinum and esophagus. There is limited imaging of the upper abdomen. This demonstrates numerous punctate areas of free intraperitoneal air. Dedicated CT imaging of the abdomen is warranted. No definite source for this is seen on the CT imaging of the chest.
[2018-07-23] MEDS ORDERED: Hydrocortisone Sod Succinate 100 MG Vial IV.PUSH ONE (11:45)
[2018-07-23] MEDS: predniSONE 5 MG Tablet PO SCH ×2 (12:20→18:06)
--- NOTE | 2018-07-23 14:25 | ECG ---
Date Performed: 07/22/2018 Time Performed: 12:49:56 PTAGE: 68 years EKG: SINUS TACHYCARDIA POSSIBLE INFERIOR MYOCARDIAL INFARCTION ABNORMAL RHYTHM ECG Compared to PREVIOUS TRACING the patient is now tachycardic PREVIOUS TRACIN10/30/2013 06.49 DOCTOR: Fernanda Llamas Interpretating Date/Time 07/23/2018 14:23:59
[2018-07-23 15:20] LABS: Baso % (Auto) 0.3 % (0.0-2.0); Eos % (Auto) 0.1 % (0.0-4.0); Hematocrit 33.4 % (39.0-51.0); Lymph # (Auto) 0.3 th/mm3 (1.0-4.8); Lymph % (Auto) 2.2 % (9.0-44.0); Mean Corpuscular Hemoglobin 32.6 pg (27.0-34.0); Mean Corpuscular Volume 98.6 fL (80.0-100.0); Mean Platelet Volume 8.2 fL (7.0-11.0); Mono # (Auto) 0.4 th/mm3 (0.0-0.9); Mono % (Auto) 2.9 % (0.0-8.0); Neut # (Auto) 12.2 th/mm3 (1.8-7.7); Neut % (Auto) 94.5 % (16.0-70.0); Platelet Count 205 th/mm3 (150-450); Red Blood Count 3.38 mil/mm3 (4.50-5.90); Red Cell Distribution Width 15.8 % (11.6-17.2); White Blood Count 12.9 th/mm3 (4.0-11.0)
[2018-07-23] MEDS: Acetaminophen 325 MG Tablet PO PRN (15:33)
[2018-07-23 15:48] LABS: Albumin 2.5 g/dL (3.4-5.0); Anion Gap 12 meq/L (5-15); Aspartate Aminotransferase 43 U/L (15-37); Blood Urea Nitrogen 26 mg/dL (7-18); Calcium 8.4 mg/dL (8.5-10.1); Carbon Dioxide 21.1 meq/L (21.0-32.0); Chloride 108 meq/L (98-107); Glomerular Filtration Rate 63 mL/min (>89); Glucose,Random 66 mg/dL (74-106); Potassium 4.5 meq/L (3.5-5.1); Sodium 141 meq/L (136-145)
[2018-07-23 15:52] LABS: Alanine Aminotransferase 44 U/L (12-78); Alkaline Phosphatase 65 U/L (45-117); Total Protein 6.2 g/dL (6.4-8.2)
[2018-07-23] MEDS: Pantoprazole Sodium 20 MG DR Tablet PO SCH (18:31)
--- NOTE | 2018-07-23 18:42 | P.PNIM ---
Subjective Interval history: Patient says that nausea vomiting has improved. Denies any chest pain or shortness of breath. some loose stools since starting antibiotic. Patient reports being on prednisone 2.5 mg 3 times daily for a very long time. Physical Exam Vital signs: Vital Signs 07/22/18 20:51 07/23/18 00:00 07/23/18 00:05 Temperature 97.9 F 97.9 F Pulse Rate 93 H 84 81 Respiratory Rate 18 16 Blood Pressure 164/76 H 150/92 H Pulse Oximetry 97 97 07/23/18 04:00 07/23/18 07:49 07/23/18 08:00 Temperature 100.3 F H 99.8 F H Pulse Rate 99 H 109 H Respiratory Rate 16 17 Blood Pressure 143/90 H 148/82 H Pulse Oximetry 100 99 94 L 07/23/18 12:00 07/23/18 15:50 07/23/18 16:00 Temperature 98.8 F 100.7 F H Pulse Rate 117 H 105 H 101 H Respiratory Rate 16 20 Blood Pressure 137/78 121/72 Pulse Oximetry 95 91 L Intake & Output 07/22/18 07/23/18 07/23/18 18:59 06:59 18:59 Intake Total 2962 / 2962 1300 / 1300 1100 / 1100 Output Total 400 / 400 Balance 2962 / 2962 900 / 900 1100 / 1100 Weight 77.3 kg 81.6 kg Intake: IV 2962 / 2962 1300 / 1300 1100 / 1100 NS Inj 1,000 ML @ 100 mls/hr IV 1000 / 1000 1000 / 1000 .CONT .Q10H DEMETRIUS Rx#:[id number] Diflucan 200 mg Premix Bag 100 100 / 100 ML @ 100 mls/hr IV.SIG ONCE ONE Rx#:[id number] Zosyn 4.5 GM Premix 4.5 gm In 100 / 100 300 / 300 100 / 100 100 ml @ 200 mls/hr IV.SIG Q6H DEMETRIUS Rx#:[id number] NS Inj 1,000 ML @ Wide Open IV. 1999 / 1999 SIG .Q0M DEMETRIUS Rx#:[id number] NS Inj 500 ML @ 1000 mls/hr IV. 500 / 500 SIG BOLUS DEMETRIUS Rx#:[id number] Vancomycin Inj 1,200 MG In NS 262 / 262 Inj 250 ML @ 250 mls/hr IV.SIG STAT STA Rx#:[id number] Output: Urine 400 / 400 Other: # Voids 5 Narrative: GENERAL: lying in bed. Appears comfortable. SKIN: Warm and dry. HEAD: Normocephalic. EYES: No scleral icterus. No injection or drainage. NECK: Supple, trachea midline. No JVD. CARDIOVASCULAR: Regular rate and rhythm without murmurs, gallops, or rubs. RESPIRATORY: Breath sounds equal bilaterally. No accessory muscle use. GASTROINTESTINAL: Abdomen soft, nondistended. tender to moderate palpation in the left lower quadrant. No rebound or guarding. MUSCULOSKELETAL: No cyanosis, or edema. BACK: Nontender without obvious deformity. No CVA tenderness. Results - Labs CBC & Chem 7: 07/23/18 14:34 07/23/18 14:34 Laboratory Results - last 24 hr 07/23/18 07/23/18 14:34 14:34 WBC 12.9 H RBC 3.38 L Hgb 11.0 L Hct 33.4 L MCV 98.6 D MCH 32.6 MCHC 33.0 RDW 15.8 Plt Count 205 MPV 8.2 Neut % (Auto) 94.5 H Lymph % (Auto) 2.2 L [place] % (Auto) 2.9 Eos % (Auto) 0.1 Baso % (Auto) 0.3 Neut # (Auto) 12.2 H Lymph # (Auto) 0.3 L [place] # (Auto) 0.4 Eos # (Auto) 0.0 Baso # (Auto) 0.0 WBC Differential . Differential Comment Auto diff final Sodium 141 Potassium 4.5 Chloride 108 H D Carbon Dioxide 21.1 Anion Gap 12 BUN 26 H Creatinine 1.15 Estimated GFR 63 L Random Glucose 66 L Calcium 8.4 L Total Bilirubin 1.2 H AST 43 H ALT 44 Alkaline Phosphatase 65 Total Protein 6.2 L D Albumin 2.5 L D Microbiology 07/22/18 14:05 Blood - Peripheral Aerobic Blood Culture - Preliminary No growth in 1 day 07/22/18 14:05 Blood - Peripheral Anaerobic Blood Culture - Preliminary No growth in 1 day 07/22/18 14:10 Blood - Peripheral Aerobic Blood Culture - Preliminary No growth in 1 day 07/22/18 14:10 Blood - Peripheral Anaerobic Blood Culture - Preliminary No growth in 1 day 07/22/18 14:30 Nasal Wash Influenza Types A,B Antigen - Final Negative for FLU A and B antigen Infection due to influenza A or B cannot be ruled out since the antigen present in the sample may be below the detection limit of the test. - Imaging Impressions Upper GI/Barium Swallow X-Ray 07/22/18 00:00 CONCLUSION: No evidence of esophageal leak. Assessment and Plan - Plan Mr. Moreira is a pleasant 68-year-old male with a history of hypertension, CAD who presents to the emergency department on 07/22/2018 due to 4-5-day duration of not feeling well, nausea vomiting and anorexia. ED work up shows leukocytosis with WBC 20 1.1K, CT studies finding of retropharyngeal and retroperitoneal air. Patient is being transferred to the main hospital. General surgeon Dr. Douglas is been consulted. //Acute diverticulitis //Severe Sepsis on admission -With tachycardia, leukocytosis, diverticulitis, acute kidney injury on admission -Due to intra-abdominal infection no need for blood cultures. sepsis continue. We'll treat with broad-spectrum antibiotics. Zosyn. //Retropharyngeal air //Retroperitoneal air General surgery consulted. Discussed with Dr. Douglas who will see patient tonight. Continue IV fluid. Continue morphine for pain. Continue Zosyn 4.5 g every 6 hours for any gram-negative and anaerobic infection = 07/23. Vascular surgery following. Appreciate assistance. Retropharyngeal air likely secondary to air tracked from diverticular perforation. Appreciate vascular surgery assistance //Suspected adrenal insufficiency. On chronic steroids. Will place on stress dose steroids here //CAD s/p CABG //Hypertension Currently hemodynamically stable. No acute concerns. Hold off using lisinopril. If needed, consider calcium channel blockers. //Probable acute kidney injury creatinine 1.80 today. Previous creatinine recorded in the EMR is below 1.0 in 2013. Repeat BMP in the morning. Continue IV fluid. = 07/23. Creatinine improved to 1.1 with IV fluids. Continue. Full code. SCDs. Discussed Condition With: patient, nurse, at bedside Discharge Planning: still with sepsis. No home needs identified at this time.
[2018-07-23] MEDS: Sodium Chloride 0.9% 2 ML Flush BID IV.FLUSH SCH (20:42)
[2018-07-23] MEDS: Hydrocortisone Sod Succinate 100 MG Vial IV.PUSH SCH (22:00)
[2018-07-23] MEDS: Sodium Chloride 0.9% 2 ML Flush PRN IV.FLUSH (23:06)
[2018-07-24] MEDS: Sod Chloride 0.9% Inj 1,000 ML IV.CONT SCH ×3 (00:40→10:20)
[2018-07-24] MEDS: Piperacil/Tazo 4.5 GM Premix 4.5 GM/100 ML BAG IV.SIG SCH ×5 (00:51→23:36)
[2018-07-24] MEDS: Hydrocortisone Sod Succinate 100 MG Vial IV.PUSH SCH ×3 (05:53→21:08)
[2018-07-24] MEDS: Sodium Chloride 0.9% 2 ML Flush PRN IV.FLUSH (05:55)
[2018-07-24] MEDS: Morphine Inj 4 MG/ML Vial IV.PUSH PRN ×4 (05:59→21:47)
[2018-07-24] MEDS: Sodium Chloride 0.9% 2 ML Flush BID IV.FLUSH SCH ×2 (08:06→20:13)
[2018-07-24] MEDS: Folic Acid 1 MG Tablet PO SCH (08:06)
[2018-07-24] MEDS ORDERED: Diatrizoate Meglum/Diatrizoate Sod Liq 9 ML UDC PO ONE (08:52)
--- NOTE | 2018-07-24 08:56 | P.PNVS ---
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 As noted in my original consultation I evaluate the patient carefully and he certainly did not appear clinically ill as most patients with Boerhaave syndrome would. Patients with Boerhaave syndrome I usually sweating, pale almost catatonic in chest pain and guarding in all 4 quadrants Those patients deteriorate very rapidly and unless surgery is performed they dying a very short period of time This gentleman appeared quite comfortable with mild abdominal pain and clearly not septic Therefore the remaining diagnoses were possible rupture of a Zenker's diverticulum or an intra-abdominal source. Esophageal swallow clearly shows clean esophagus without any lesions or leaks. On the other hand patient does have some thickening of the descending colon and proximal sigmoid as well as tracking air in the retroperitoneum therefore working diagnosis should be perforated diverticulum of the proximal sigmoid colon with tracking into the retroperitoneum and higher up into the chest Today abdomen is soft with active bowel sounds and tender in the left hemiabdomen Patient states the tenderness started last night White count is normalizing and left shift is receding Would keep on IV antibiotics will advance diet and repeat CT scan of the abdomen and pelvis on After that if patient does well he can go home on oral antibiotics follow-up with the gastroenterology for repeat colonoscopy in about a month and depending on the findings likelihood is we will schedule him for left colon/sigmoid elective resection In the face of retroperitoneal perforation dissection this is not the type of diverticulitis that should be left and only treated medically likely due for majority of diverticular disease these days 07/24/2018 Abdomen is soft active bowel sounds no rebound no guarding no masses Tender in the left midabdomen at this time Patient is greatly improved clinically and leukocytosis is resolved At this point working diagnosis is definitely sigmoid/descending colon diverticulitis with retroperitoneal perforation We will repeat CT scan of the abdomen and pelvis and see what this looks like but now with oral contrast All things equal barring any surprises clinically or diagnostically, patient can be advanced to low residue diet after the CT scan and probably discharged on oral antibiotics tomorrow We will keep on IV antibiotics for at least another day On the other hand if the CT scan reveals any surprises this may change the course of therapy and approach Addendum Patient underwent CT of abdomen and pelvis with IV and p.o. contrast which reveals reduction and near disappearance of the air in the paraesophageal area however now patient has fairly large pneumoperitoneum and air in the retroperitoneum. There is some abnormality and irregularity of the barium collection and descending colon and I still think that this is the source of patient's perforation. Nonetheless with this amount of air I believe EGD is warranted to make sure patient does not have a posterior duodenal or gastric ulcer which could cause the same Spoken Dr. Kenney about the case and spoken to Dr. Vines who will go ahead with EGD. If patient does not have a posterior penetrating or perforating ulcer which I do not think will be the case then patient will need colon resection at this admission because he is a continuous leak and I discussed this at length with the patient Objective Vital Signs / I&O: Vital Signs 07/23/18 12:00 07/23/18 15:50 07/23/18 16:00 Temperature 98.8 F 100.7 F H Pulse Rate 117 H 105 H 101 H Respiratory Rate 16 20 Blood Pressure 137/78 121/72 Pulse Oximetry 95 91 L 07/23/18 20:00 07/23/18 20:03 07/23/18 23:54 Temperature 97.5 F L Pulse Rate 89 95 H 77 Respiratory Rate 18 Blood Pressure 133/84 Pulse Oximetry 94 L 07/24/18 00:00 07/24/18 03:54 07/24/18 04:00 Temperature 98.4 F 97.9 F Pulse Rate 80 82 89 Respiratory Rate 17 17 Blood Pressure 121/77 149/91 H Pulse Oximetry 93 L 93 L Intake & Output 07/23/18 07/24/18 07/24/18 18:59 06:59 18:59 Intake Total 1200 / 1200 1200 / 1200 Output Total 250 / 250 Balance 1200 / 1200 950 / 950 Weight 82.6 kg Intake: IV 1200 / 1200 1200 / 1200 NS Inj 1,000 ML @ 100 mls/hr IV 1000 / 1000 1000 / 1000 .CONT .Q10H DEMETRIUS Rx#:[id number] Zosyn 4.5 GM Premix 4.5 gm In 200 / 200 200 / 200 100 ml @ 200 mls/hr IV.SIG Q6H DEMETRIUS Rx#:[id number] Oral 0 / 0 Output: Urine 250 / 250 Other: # Voids 5 # Bowel Movements 1 Laboratory Results - last 24 hr 07/23/18 07/23/18 14:34 14:34 WBC 12.9 H RBC 3.38 L Hgb 11.0 L Hct 33.4 L MCV 98.6 D MCH 32.6 MCHC 33.0 RDW 15.8 Plt Count 205 MPV 8.2 Neut % (Auto) 94.5 H Lymph % (Auto) 2.2 L [place] % (Auto) 2.9 Eos % (Auto) 0.1 Baso % (Auto) 0.3 Neut # (Auto) 12.2 H Lymph # (Auto) 0.3 L [place] # (Auto) 0.4 Eos # (Auto) 0.0 Baso # (Auto) 0.0 WBC Differential . Differential Comment Auto diff final Sodium 141 Potassium 4.5 Chloride 108 H D Carbon Dioxide 21.1 Anion Gap 12 BUN 26 H Creatinine 1.15 Estimated GFR 63 L Random Glucose 66 L Calcium 8.4 L Total Bilirubin 1.2 H AST 43 H ALT 44 Alkaline Phosphatase 65 Total Protein 6.2 L D Albumin 2.5 L D Microbiology 07/22/18 14:05 Aerobic Blood Culture - Preliminary Blood - Peripheral No growth in 1 day Anaerobic Blood Culture - Preliminary No growth in 1 day 07/22/18 14:10 Aerobic Blood Culture - Preliminary Blood - Peripheral No growth in 1 day Anaerobic Blood Culture - Preliminary No growth in 1 day Impressions Upper GI/Barium Swallow X-Ray 07/22/18 00:00 CONCLUSION: No evidence of esophageal leak. Chest X-Ray 07/22/18 13:26 CONCLUSION: There is subcutaneous emphysema in the neck bilaterally of uncertain etiology. Chronic interstitial changes within the pulmonary parenchyma. Abdomen/Pelvis CT 07/22/18 13:52 CONCLUSION: Diverticular disease involving the distal colon with inflammatory changes adjacent to portions of the descending colon and significant retroperitoneal air most voluminously present adjacent to the mid descending colon however also seen in the pelvis, upper abdomen and low middle mediastinum. Foot X-Ray 07/22/18 14:00 CONCLUSION: Negative for fracture or dislocation. Followup in 7-10 days is suggested if symptoms persist. Soft Tissue Neck CT 07/22/18 14:00 CONCLUSION: 1. Subcutaneous and retropharyngeal air. Most likely sources upper airway 2. Findings have been discussed with Dr. Hendricks on today's date. Chest CT 07/22/18 14:12 CONCLUSION: 1. There is extensive subcutaneous emphysema extending throughout the neck, extending along the posterior mediastinum and esophagus. There is limited imaging of the upper abdomen. This demonstrates numerous punctate areas of free intraperitoneal air. Dedicated CT imaging of the abdomen is warranted. No definite source for this is seen on the CT imaging of the chest.
--- NOTE | 2018-07-24 14:16 | CT ---
EXAM DATE: 07/24/2018 1:55 PM EST AGE/SEX: 68 years / Male INDICATIONS: Abdominal pain, diverticulitis. CLINICAL DATA: This is the patient's initial encounter. Patient reports that signs and symptoms have been present for 1 day and indicates a pain score of 4/10. MEDICAL/SURGICAL HISTORY: Hypertension. CABG. ORAL CONTRAST: No oral contrast ingested. RADIATION DOSE: 11.71 CTDI (mGy) COMPARISON: [facility] [place], SWALLOW W GASTROGRAFIN, 07/22/2018. . TECHNIQUE: Multiple contiguous axial images were obtained through the abdomen and pelvis following b olus infusion of 80 ml Omnipaque 350 (iohexol) nonionic water-soluble contrast as a single exam dos e. No oral contrast ingested. Using automated exposure control and adjustment of the mA and/or kV ac cording to patient size, radiation dose was kept as low as reasonably achievable to obtain optimal di agnostic quality images. DICOM format image data is available electronically for review and comparis on. FINDINGS: There is significant of free intraperitoneal air in the upper abdomen. This free air is around the di stal esophagus, lesser sac and transverse colon. A small amount of free air is associated with the de scending colon in the left lower quadrant.. There is no extravasation of oral contrast evident. There are multiple diverticuli in the sigmoid colon. The most likely source of this is most likely upper a bdominal. The splenic flexure would be the other consideration. The liver pancreas and spleen are unremarkable Prominent gallbladder with multiple gallstones Symmetrical renal function There is mild bowel wall thickening in the sigmoid colon no significant air in the sigmoid colon. There is no portal air evident. There is no biliary air. . CONCLUSION: 1. Large amount of free intraperitoneal air most likely from an upper abdominal source, distal esoph hcaro or stomach. Splenic flecture, would be the other consideration. 2. There is no extravasation of contrast 3. Pelvis is unremarkable. 4. Findings were discussed with Dr. Douglas Electronically signed by: Daniel Kenney MD 07/24/2018 2:15 PM EST
--- NOTE | 2018-07-24 16:29 | P.CONGI ---
History of Present Illness Consult date: 07/24/18 Consult reason: Nausea, mild dyspepsia Chief complaint: Sepsis, perforated Diverticulitis, perforated History of Present Illness: This is a 68-year-old male who initially was admitted at the [facility] on 07/23/2018 but transferred to [place]. Patient notes onset of symptoms of nausea approximately 5 days ago but no obvious vomiting. Patient states that he has not eaten anything to throw up. Patient notes diarrhea started today, unspecified and decreased appetite. CT scan of the abdomen reviewed and showed a significant amount of free intra-peritoneal air in the upper abdomen this free air is around the distal esophagus the lesser sac in the transverse colon small amount of free air is associated with the descending colon in the left lower quadrant there are multiple diverticuli in the sigmoid colon which could be the likely source of patient's upper abdominal bloating. Patient does continue with upper and mid abdominal bloating and generalized pressure in his abdomen. He is also noted to be hoarse, denies any rectal bleeding or hematemesis or coffee-ground emesis. Current labs show initial hemoglobin 12.7 now 11, WBC count decreased to 12.9, bilirubin 1.2, AST 43 ALT 44. GI was consulted to assist and plan of care and for EGD. <Stephanie Valentino - Last Filed: 07/24/18 16:21> Review of Systems All other systems reviewed negative except as stated in HPI <Stephanie Valentino - Last Filed: 07/24/18 16:21> PMFSH - History History Provided By: Patient - Medical History Medical History: Medical History (Last Reviewed 07/22/18 @ 14:31 by Fang Hendricks MD) Hypertension Kidney stones Rheumatoid arthritis - Surgical History Surgical History: Surgical History (Last Reviewed 07/22/18 @ 14:31 by Fang Hendricks MD) H/O heart artery stent H/O hernia repair H/O knee surgery H/O shoulder surgery Hx of CABG - Tobacco History Second Hand Smoke Exposure: No Tobacco Use In Past 30 Days: No Smoking Status: Former smoker Tobacco Type: Cigarettes - Alcohol History How Often Do You Have a Drink Containing Alcohol: Monthly or less - Substance Use History Substance History: No History of Abuse - Travel History Recent Travel in the [place] Within the Last 8 Weeks: No Recent Travel Out of the Country Within the Last 8 Weeks: No - Immunization History Tetanus Immunization: >5 Years Hx Influenza Vaccine This Season: Yes <Stephanie Valentino - Last Filed: 07/24/18 16:21> - Medical History Medical History: Medical History (Last Reviewed 07/22/18 @ 14:31 by Fang Hendricks MD) Hypertension Kidney stones Rheumatoid arthritis - Surgical History Surgical History: Surgical History (Last Reviewed 07/22/18 @ 14:31 by Fang Hendricks MD) H/O heart artery stent H/O hernia repair H/O knee surgery H/O shoulder surgery Hx of CABG <Osmel Vines - Last Filed: 07/24/18 20:45> Medications and Allergies Active Medications: Active Medications Acetaminophen (Tylenol) 650 mg PO Q4H PRN PRN Reason: Headache, fever, pain 1-4 Last Admin: 07/23/18 15:33 Dose: 650 mg Al Hydroxide/Mg Hydroxide (Milk Of Magnesia Liq) 30 ml PO Q12H PRN PRN Reason: Mild Constipation Bisacodyl (Dulcolax Supp) 10 mg RECTAL DAILY PRN PRN Reason: SEVERE CONSITIPATION Folic Acid (Folic Acid) 1 mg PO DAILY [facility] Last Admin: 07/24/18 08:06 Dose: 1 mg Hydrocortisone Sodium Succinate (Solucortef Inj) 50 mg IV.PUSH Q8HR [facility] Last Admin: 07/24/18 13:23 Dose: 50 mg Sodium Chloride (Ns Inj) 1,000 mls @ 0 mls/hr IV.SIG .Q0M [facility] Last Infusion: 07/22/18 16:40 Dose: Infused Sodium Chloride (Ns Inj) 1,000 mls @ 0 mls/hr IV.SIG .Q0M [facility] Last Infusion: 07/22/18 18:51 Dose: Infused Piperacillin/Tazobactam/Dextrose (Zosyn 4.5 Gm Premix) 4.5 gm in 100 mls @ 200 mls/hr IV.SIG Q6H [facility] Last Infusion: 07/24/18 12:27 Dose: Infused Lactulose (Lactulose Liq) 30 ml PO DAILY PRN PRN Reason: SEVERE CONSITIPATION Morphine Sulfate (Morphine Inj) 4 mg IV.PUSH Q4H PRN PRN Reason: Pain 5-10 Last Admin: 07/24/18 10:19 Dose: 4 mg Ondansetron HCl (Zofran Inj) 4 mg IV.PUSH Q6H PRN PRN Reason: NAUSEA OR VOMITING Last Admin: 07/24/18 11:51 Dose: 4 mg Pantoprazole Sodium (Protonix) 20 mg PO QPM [facility] Last Admin: 07/23/18 18:31 Dose: 20 mg Pravastatin Sodium (Pravachol) 40 mg PO DAILY [facility] Last Admin: 07/24/18 08:06 Dose: 40 mg Sennosides (Senokot) 17.2 mg PO Q12H PRN PRN Reason: Moderate Constipation Sodium Chloride (Ns Flush) 2 ml IV.FLUSH BID [facility] Last Admin: 07/24/18 08:06 Dose: Not Given Sodium Chloride (Ns Flush) 2 ml IV.FLUSH PRN PRN PRN Reason: FLUSH AFTER USING IV ACCESS Last Admin: 07/24/18 05:55 Dose: 2 ml <Stephanie Valentino M - Last Filed: 07/24/18 16:21> Active Medications: Active Medications Acetaminophen (Tylenol) 650 mg PO Q4H PRN PRN Reason: Headache, fever, pain 1-4 Last Admin: 07/23/18 15:33 Dose: 650 mg Al Hydroxide/Mg Hydroxide (Milk Of Magnesia Liq) 30 ml PO Q12H PRN PRN Reason: Mild Constipation Alprazolam (Xanax) 0.25 mg PO Q6H PRN PRN Reason: ANXIETY Last Admin: 07/24/18 20:13 Dose: 0.25 mg Bisacodyl (Dulcolax Supp) 10 mg RECTAL DAILY PRN PRN Reason: SEVERE CONSITIPATION Folic Acid (Folic Acid) 1 mg PO DAILY [facility] Last Admin: 07/24/18 08:06 Dose: 1 mg Hydrocortisone Sodium Succinate (Solucortef Inj) 50 mg IV.PUSH Q8HR [facility] Last Admin: 07/24/18 13:23 Dose: 50 mg Sodium Chloride (Ns Inj) 1,000 mls @ 0 mls/hr IV.SIG .Q0M [facility] Last Infusion: 07/22/18 16:40 Dose: Infused Sodium Chloride (Ns Inj) 1,000 mls @ 0 mls/hr IV.SIG .Q0M [facility] Last Infusion: 07/22/18 18:51 Dose: Infused Piperacillin/Tazobactam/Dextrose (Zosyn 4.5 Gm Premix) 4.5 gm in 100 mls @ 200 mls/hr IV.SIG Q6H [facility] Last Infusion: 07/24/18 17:35 Dose: Infused Lactulose (Lactulose Liq) 30 ml PO DAILY PRN PRN Reason: SEVERE CONSITIPATION Morphine Sulfate (Morphine Inj) 4 mg IV.PUSH Q4H PRN PRN Reason: Pain 5-10 Last Admin: 07/24/18 17:06 Dose: 4 mg Ondansetron HCl (Zofran Inj) 4 mg IV.PUSH Q6H PRN PRN Reason: NAUSEA OR VOMITING Last Admin: 07/24/18 11:51 Dose: 4 mg Pantoprazole Sodium (Protonix) 20 mg PO QPM [facility] Last Admin: 07/24/18 17:05 Dose: 20 mg Pravastatin Sodium (Pravachol) 40 mg PO DAILY [facility] Last Admin: 07/24/18 08:06 Dose: 40 mg Sennosides (Senokot) 17.2 mg PO Q12H PRN PRN Reason: Moderate Constipation Sodium Chloride (Ns Flush) 2 ml IV.FLUSH BID [facility] Last Admin: 07/24/18 20:13 Dose: 2 ml Sodium Chloride (Ns Flush) 2 ml IV.FLUSH PRN PRN PRN Reason: FLUSH AFTER USING IV ACCESS Last Admin: 07/24/18 05:55 Dose: 2 ml <Osmel Vines - Last Filed: 07/24/18 20:45> Allergies Allergy/AdvReac Type Severity Reaction Status Date / Time No Known Allergies Allergy Uncoded 10/30/13 06:40 Home Medications Medication Instructions Recorded Confirmed Type aspirin [Aspir-Low] 81 mg PO HS 07/22/18 07/22/18 History folic acid 1 mg PO DAILY 07/22/18 07/22/18 History hydralazine 50 mg PO TID 07/22/18 07/22/18 History hydrocodone-acetaminophen 1 tab PO Q6H PRN 07/22/18 07/22/18 History hydroxychloroquine 200 mg PO BID 07/22/18 07/22/18 History lisinopril 20 mg PO DAILY 07/22/18 07/22/18 History magnesium 500 mg PO QAM 07/22/18 07/22/18 History meloxicam 15 mg PO QPM 07/22/18 07/22/18 History methotrexate sodium 8 mg PO QWEEK 07/22/18 07/22/18 History omeprazole 20 mg PO QPM 07/22/18 07/22/18 History prednisone 2.5 mg PO TID 07/22/18 07/22/18 History simvastatin 20 mg PO QAM 07/22/18 07/22/18 History Exam Vital signs: Vital Signs 07/23/18 20:00 07/23/18 20:03 07/23/18 23:54 Temperature 97.5 F L Pulse Rate 89 95 H 77 Respiratory Rate 18 Blood Pressure 133/84 Pulse Oximetry 94 L 07/24/18 00:00 07/24/18 03:54 07/24/18 04:00 Temperature 98.4 F 97.9 F Pulse Rate 80 82 89 Respiratory Rate 17 17 Blood Pressure 121/77 149/91 H Pulse Oximetry 93 L 93 L 07/24/18 08:00 07/24/18 12:00 Temperature 97.3 F L 98.1 F Pulse Rate 79 80 Respiratory Rate 16 16 Blood Pressure 146/77 H 152/76 H Pulse Oximetry 97 94 L Intake & Output 07/23/18 07/24/18 07/24/18 18:59 06:59 18:59 Intake Total 1200 / 1200 1200 / 1200 100 / 100 Output Total 250 / 250 Balance 1200 / 1200 950 / 950 100 / 100 Weight 82.6 kg Intake: IV 1200 / 1200 1200 / 1200 100 / 100 NS Inj 1,000 ML @ 100 mls/hr IV 1000 / 1000 1000 / 1000 .CONT .Q10H [facility] Rx#:[id number] Zosyn 4.5 GM Premix 4.5 gm In 200 / 200 200 / 200 100 / 100 100 ml @ 200 mls/hr IV.SIG Q6H [facility] Rx#:[id number] Oral 0 / 0 Output: Urine 250 / 250 Other: # Voids 5 # Bowel Movements 1 - Constitutional mild distress, disheveled, cooperative - Routine HEENT Exam Head: Present: normocephalic ENT: Present: mucous membranes dry (Pale) - Routine Neck Exam Present: supple - Routine Abdominal Exam Present: distended (Upper abdominal area especially bloated with some mild tenderness, taut, tympanic) - Routine Skin Exam Present: intact - Routine Neurological Exam Present: alert (Pale) <Stephanie Valentino - Last Filed: 07/24/18 16:21> Vital signs: Vital Signs 07/23/18 23:54 07/24/18 00:00 07/24/18 03:54 Temperature 98.4 F Pulse Rate 77 80 82 Respiratory Rate 17 Blood Pressure 121/77 Pulse Oximetry 93 L 07/24/18 04:00 07/24/18 08:00 07/24/18 12:00 Temperature 97.9 F 97.3 F L 98.1 F Pulse Rate 89 79 78 Respiratory Rate 17 16 16 Blood Pressure 149/91 H 146/77 H 152/76 H Pulse Oximetry 93 L 97 94 L 07/24/18 16:00 Temperature 98.0 F Pulse Rate 89 Respiratory Rate 16 Blood Pressure 144/85 H Pulse Oximetry 96 Intake & Output 07/24/18 07/24/18 07/25/18 06:59 18:59 06:59 Intake Total 1200 / 1200 200 / 200 Output Total 250 / 250 2100 / 2100 Balance 950 / 950 -1900 / -1900 Weight 82.6 kg Intake: IV 1200 / 1200 200 / 200 NS Inj 1,000 ML @ 100 mls/hr IV 1000 / 1000 .CONT .Q10H [facility] Rx#:[id number] Zosyn 4.5 GM Premix 4.5 gm In 200 / 200 200 / 200 100 ml @ 200 mls/hr IV.SIG Q6H [facility] Rx#:[id number] Oral 0 / 0 0 / 0 Output: Urine 250 / 250 2100 / 2100 Other: # Voids 6 Date of Last Bowel Movement 07/24/18 # Bowel Movements 1 2 <Osmel Vines - Last Filed: 07/24/18 20:45> Results - Labs CBC & Chem 7: 07/23/18 14:34 07/23/18 14:34 - Imaging Impressions Abdomen/Pelvis CT 07/24/18 00:00 . CONCLUSION: 1. Large amount of free intraperitoneal air most likely from an upper abdominal source, distal esophagus or stomach. Splenic flecture, would be the other consideration. 2. There is no extravasation of contrast 3. Pelvis is unremarkable. 4. Findings were discussed with Dr. Douglas <Stephanie Valentino - Last Filed: 07/24/18 16:21> - Labs CBC & Chem 7: 07/24/18 17:28 07/24/18 17:28 Labs: Laboratory Results - last 24 hr 07/24/18 07/24/18 07/24/18 16:42 17:28 17:28 WBC 15.1 H RBC 3.57 L Hgb 11.7 L Hct 34.2 L MCV 96.0 MCH 32.8 MCHC 34.1 RDW 16.2 Plt Count 263 MPV 8.2 Neut % (Auto) 94.2 H Lymph % (Auto) 2.2 L [place] % (Auto) 3.4 Eos % (Auto) 0.1 Baso % (Auto) 0.1 Neut # (Auto) 14.3 H Lymph # (Auto) 0.3 L [place] # (Auto) 0.5 Eos # (Auto) 0.0 Baso # (Auto) 0.0 WBC Differential . Differential Comment Auto diff final PT 11.4 INR 1.1 Sodium 137 Potassium 3.5 D Chloride 104 Carbon Dioxide 23.0 Anion Gap 10 BUN 28 H Creatinine 1.23 Estimated GFR 58 L Random Glucose 108 H Calcium 9.0 Total Bilirubin 0.8 AST 59 H ALT 60 Alkaline Phosphatase 88 Total Protein 7.4 D Albumin 2.7 L - Imaging Impressions Abdomen/Pelvis CT 07/24/18 00:00 . CONCLUSION: 1. Large amount of free intraperitoneal air most likely from an upper abdominal source, distal esophagus or stomach. Splenic flecture, would be the other consideration. 2. There is no extravasation of contrast 3. Pelvis is unremarkable. 4. Findings were discussed with Dr. Douglas <Osmel Vines - Last Filed: 07/24/18 20:45> Assessment and Plan - Plan This is a 68-year-old male who initially was admitted at the [facility] on 07/23/2018 but transferred to [place]. Patient notes onset of symptoms of nausea approximately 5 days ago but no obvious vomiting. Patient states that he has not eaten anything to throw up. Patient notes diarrhea started today, unspecified and decreased appetite. CT scan of the abdomen reviewed and showed a significant amount of free intra-peritoneal air in the upper abdomen this free air is around the distal esophagus the lesser sac in the transverse colon small amount of free air is associated with the descending colon in the left lower quadrant there are multiple diverticuli in the sigmoid colon which could be the likely source of patient's upper abdominal bloating. Patient does continue with upper and mid abdominal bloating and generalized pressure in his abdomen. He is also noted to be hoarse, denies any rectal bleeding or hematemesis or coffee-ground emesis. Current labs show initial hemoglobin 12.7 now 11, WBC count decreased to 12.9, bilirubin 1.2, AST 43 ALT 44. GI was consulted to assist and plan of care and for EGD. Mid abdominal pain and bloating Nausea but no obvious vomiting and dyspepsia Loose diarrhea stools today, possibly secondary to dehydration and not eating Anemia could be acute on chronic, patient does have hoarseness generalized weakness and decreased appetite Social alcohol per the record Plan Diet per attending Consent for EGD, explained to patient general procedure and sedation N.p.o. at midnight Folic acid Protonix, Zosyn Monitor labs with special attention to any drop in hemoglobin Further recommendations to follow Patient was seen per myself and Dr. Vines, note was written on his behalf <Stephanie Valentino - Last Filed: 07/24/18 16:21> - Plan Agree with above note and plan, discussed the case with Dr. Antonino Kenney and trauma surgery team, will do upper endoscopy to make sure there is no perforated ulcer causing the free air, most likely diverticular perforation <Osmel Vines - Last Filed: 07/24/18 20:45>
--- NOTE | 2018-07-24 16:42 | P.PNIM ---
Subjective Interval history: Patient says he is feeling very anxious. Reports abdominal distention, however reports pain is under control. Denies nausea or vomiting. Physical Exam Vital signs: Vital Signs 07/23/18 20:00 07/23/18 20:03 07/23/18 23:54 Temperature 97.5 F L Pulse Rate 89 95 H 77 Respiratory Rate 18 Blood Pressure 133/84 Pulse Oximetry 94 L 07/24/18 00:00 07/24/18 03:54 07/24/18 04:00 Temperature 98.4 F 97.9 F Pulse Rate 80 82 89 Respiratory Rate 17 17 Blood Pressure 121/77 149/91 H Pulse Oximetry 93 L 93 L 07/24/18 08:00 07/24/18 12:00 Temperature 97.3 F L 98.1 F Pulse Rate 79 80 Respiratory Rate 16 16 Blood Pressure 146/77 H 152/76 H Pulse Oximetry 97 94 L Intake & Output 07/23/18 07/24/18 07/24/18 18:59 06:59 18:59 Intake Total 1200 / 1200 1200 / 1200 100 / 100 Output Total 250 / 250 Balance 1200 / 1200 950 / 950 100 / 100 Weight 82.6 kg Intake: IV 1200 / 1200 1200 / 1200 100 / 100 NS Inj 1,000 ML @ 100 mls/hr IV 1000 / 1000 1000 / 1000 .CONT .Q10H [facility] Rx#:[id number] Zosyn 4.5 GM Premix 4.5 gm In 200 / 200 200 / 200 100 / 100 100 ml @ 200 mls/hr IV.SIG Q6H [facility] Rx#:[id number] Oral 0 / 0 Output: Urine 250 / 250 Other: # Voids 5 # Bowel Movements 1 Narrative: GENERAL: lying in bed. Appears comfortable. SKIN: Warm and dry. HEAD: Normocephalic. EYES: No scleral icterus. No injection or drainage. NECK: Supple, trachea midline. No JVD. CARDIOVASCULAR: Regular rate and rhythm without murmurs, gallops, or rubs. RESPIRATORY: Breath sounds equal bilaterally. No accessory muscle use. GASTROINTESTINAL: Abdomen somewhat more distended and hyperresonant today, however tenderness has improved. No rebound or guarding. MUSCULOSKELETAL: No cyanosis, or edema. BACK: Nontender without obvious deformity. No CVA tenderness. Results - Labs CBC & Chem 7: 07/23/18 14:34 07/23/18 14:34 Microbiology 07/22/18 14:05 Blood - Peripheral Aerobic Blood Culture - Preliminary No growth in 2 days 07/22/18 14:05 Blood - Peripheral Anaerobic Blood Culture - Preliminary No growth in 2 days 07/22/18 14:10 Blood - Peripheral Aerobic Blood Culture - Preliminary No growth in 2 days 07/22/18 14:10 Blood - Peripheral Anaerobic Blood Culture - Preliminary No growth in 2 days - Imaging Impressions Abdomen/Pelvis CT 07/24/18 00:00 . CONCLUSION: 1. Large amount of free intraperitoneal air most likely from an upper abdominal source, distal esophagus or stomach. Splenic flecture, would be the other consideration. 2. There is no extravasation of contrast 3. Pelvis is unremarkable. 4. Findings were discussed with Dr. Douglas Assessment and Plan - Plan Mr. Moreira is a pleasant 68-year-old male with a history of hypertension, CAD who presents to the emergency department on 07/22/2018 due to 4-5-day duration of not feeling well, nausea vomiting and anorexia. ED work up shows leukocytosis with WBC 20 1.1K, CT studies finding of retropharyngeal and retroperitoneal air. Patient is being transferred to the main hospital. General surgeon Dr. Douglas is been consulted. //Acute diverticulitis //Severe Sepsis on admission -With tachycardia, leukocytosis, diverticulitis, acute kidney injury on admission -Due to intra-abdominal infection no need for blood cultures. sepsis continue. We'll treat with broad-spectrum antibiotics. Zosyn. = 07/24. Continue IV antibiotics for sepsis. Follow-up labs //Retropharyngeal air //intraperitoneal air General surgery consulted. Discussed with Dr. Douglas who will see patient tonight. Continue IV fluid. Continue morphine for pain. Continue Zosyn 4.5 g every 6 hours for any gram-negative and anaerobic infection = 07/23. Vascular surgery following. Appreciate assistance. Retropharyngeal air likely secondary to air tracked from diverticular perforation. Appreciate vascular surgery assistance = 07/24. Repeat CT abdomen with increase in intraperitoneal air. Management as per vascular surgery. Appreciate assistance. //Suspected adrenal insufficiency. On chronic steroids. Will cont on stress dose steroids here //CAD s/p CABG //Hypertension Currently hemodynamically stable. No acute concerns. Hold off using lisinopril. If needed, consider calcium channel blockers. //Probable acute kidney injury creatinine 1.80 today. Previous creatinine recorded in the EMR is below 1.0 in 2013. Repeat BMP in the morning. Continue IV fluid. = 07/23. Creatinine improved to 1.1 with IV fluids. Continue. = 07/24. Patient with slight edema day. Will hold off on IV fluids. Plan to start back tomorrow if showing signs of dehydration. Follow-up labs from today. //Anxiety. Patient requesting medication for anxiety. Will add benzo as needed. Full code. SCDs. Discharge Planning: still with sepsis. No home needs identified at this time.
[2018-07-24] MEDS: Pantoprazole Sodium 20 MG DR Tablet PO SCH (17:05)
[2018-07-24 18:30] LABS: Baso % (Auto) 0.1 % (0.0-2.0); Eos % (Auto) 0.1 % (0.0-4.0); Hematocrit 34.2 % (39.0-51.0); Hemoglobin 11.7 gm/dL (13.0-17.0); Lymph # (Auto) 0.3 th/mm3 (1.0-4.8); Lymph % (Auto) 2.2 % (9.0-44.0); Mean Corpuscular HGB Conc 34.1 % (32.0-36.0); Mean Corpuscular Hemoglobin 32.8 pg (27.0-34.0); Mean Platelet Volume 8.2 fL (7.0-11.0); Mono # (Auto) 0.5 th/mm3 (0.0-0.9); Mono % (Auto) 3.4 % (0.0-8.0); Neut # (Auto) 14.3 th/mm3 (1.8-7.7); Neut % (Auto) 94.2 % (16.0-70.0); Platelet Count 263 th/mm3 (150-450); Red Blood Count 3.57 mil/mm3 (4.50-5.90); Red Cell Distribution Width 16.2 % (11.6-17.2); White Blood Count 15.1 th/mm3 (4.0-11.0)
[2018-07-24 19:21] LABS: INR 1.1 Ratio; Prothrombin Time 11.4 sec (9.8-11.6)
[2018-07-24 19:36] LABS: Alanine Aminotransferase 60 U/L (12-78); Albumin 2.7 g/dL (3.4-5.0); Alkaline Phosphatase 88 U/L (45-117); Anion Gap 10 meq/L (5-15); Aspartate Aminotransferase 59 U/L (15-37); Blood Urea Nitrogen 28 mg/dL (7-18); Chloride 104 meq/L (98-107); Glomerular Filtration Rate 58 mL/min (>89); Glucose,Random 108 mg/dL (74-106); Potassium 3.5 meq/L (3.5-5.1); Sodium 137 meq/L (136-145); Total Protein 7.4 g/dL (6.4-8.2)
[2018-07-24] MEDS: ALPRAZolam 0.25 MG Tablet PO PRN (20:13)
[2018-07-25] MEDS ORDERED: Metoprolol Tartrate 25 MG Tablet PO ONE (02:04)
[2018-07-25] MEDS ORDERED: Chlorhexidine Gluconate 2% 1 Pack (2 Cloths) TOPICAL ONE (02:04)
[2018-07-25] MEDS ORDERED: Sodium Chlor 0.9% Inj 500 ML IV.SIG SCH (03:00)
[2018-07-25] MEDS: Morphine Inj 4 MG/ML Vial IV.PUSH PRN ×4 (03:43→21:28)
[2018-07-25] MEDS: ALPRAZolam 0.25 MG Tablet PO PRN (06:12)
[2018-07-25] MEDS: Hydrocortisone Sod Succinate 100 MG Vial IV.PUSH SCH ×3 (06:12→21:28)
[2018-07-25] MEDS: Piperacil/Tazo 4.5 GM Premix 4.5 GM/100 ML BAG IV.SIG SCH ×3 (06:12→17:30)
[2018-07-25 06:52] LABS: Baso % (Auto) 0.1 % (0.0-2.0); Eos % (Auto) 0.2 % (0.0-4.0); Hematocrit 31.7 % (39.0-51.0); Hemoglobin 10.7 gm/dL (13.0-17.0); Lymph # (Auto) 0.4 th/mm3 (1.0-4.8); Lymph % (Auto) 3.7 % (9.0-44.0); Mean Corpuscular HGB Conc 33.6 % (32.0-36.0); Mean Corpuscular Hemoglobin 32.7 pg (27.0-34.0); Mean Corpuscular Volume 97.4 fL (80.0-100.0); Mean Platelet Volume 8.4 fL (7.0-11.0); Mono # (Auto) 0.5 th/mm3 (0.0-0.9); Mono % (Auto) 5.1 % (0.0-8.0); Neut # (Auto) 9.7 th/mm3 (1.8-7.7); Neut % (Auto) 90.9 % (16.0-70.0); Platelet Count 205 th/mm3 (150-450); Red Blood Count 3.26 mil/mm3 (4.50-5.90); Red Cell Distribution Width 15.8 % (11.6-17.2); White Blood Count 10.6 th/mm3 (4.0-11.0)
[2018-07-25 07:17] LABS: Albumin 2.2 g/dL (3.4-5.0); Carbon Dioxide 21.8 meq/L (21.0-32.0); Magnesium 2.3 mg/dL (1.5-2.5); Phosphorus 3.3 mg/dL (2.5-4.9); Potassium 3.7 meq/L (3.5-5.1)
[2018-07-25] MEDS: Sodium Chloride 0.9% 2 ML Flush BID IV.FLUSH SCH ×2 (08:06→21:36)
[2018-07-25] MEDS: Folic Acid 1 MG Tablet PO SCH (08:06)
--- NOTE | 2018-07-25 10:22 | P.PNIM ---
Subjective Interval history: Patient sleeping, wakes of for exam. Says he is feeling all right. Denies any chest pain shortness of breath. Reports abdominal pain has improved. Physical Exam Vital signs: Vital Signs 07/24/18 12:00 07/24/18 16:00 07/24/18 20:00 Temperature 98.1 F 98.0 F 97.9 F Pulse Rate 78 89 79 Respiratory Rate 16 16 16 Blood Pressure 152/76 H 144/85 H 174/86 H Pulse Oximetry 94 L 96 94 L 07/25/18 00:00 07/25/18 04:00 07/25/18 07:26 Temperature 98.5 F 98.5 F 98.0 F Pulse Rate 89 94 H 73 Respiratory Rate 17 17 Blood Pressure 141/76 H 158/94 H 158/82 H Pulse Oximetry 93 L 96 94 L Intake & Output 07/24/18 07/25/18 07/25/18 18:59 06:59 18:59 Intake Total 200 / 200 200 / 200 Output Total 2100 / 2100 300 / 300 Balance -1900 / -1900 -100 / -100 Weight 84.1 kg Intake: IV 200 / 200 200 / 200 Zosyn 4.5 GM Premix 4.5 gm In 200 / 200 200 / 200 100 ml @ 200 mls/hr IV.SIG Q6H DEMETRIUS Rx#:[id number] Oral 0 / 0 0 / 0 Output: Urine 2100 / 2100 300 / 300 Other: # Voids 6 4 Date of Last Bowel Movement 07/24/18 07/24/18 07/24/18 # Bowel Movements 2 1 Narrative: GENERAL: lying in bed. Appears comfortable. SKIN: Warm and dry. HEAD: Normocephalic. EYES: No scleral icterus. No injection or drainage. NECK: Supple, trachea midline. No JVD. CARDIOVASCULAR: Regular rate and rhythm without murmurs, gallops, or rubs. RESPIRATORY: Breath sounds equal bilaterally. No accessory muscle use. GASTROINTESTINAL: Abdomen still hyperresonant today, perhaps a little less distended. Nontender. No rebound or guarding. MUSCULOSKELETAL: No cyanosis, or edema. BACK: Nontender without obvious deformity. No CVA tenderness. Results - Labs CBC & Chem 7: 07/25/18 04:57 07/25/18 04:57 Laboratory Results - last 24 hr 1107/24/18 07/24/18 16:42 17:28 17:28 WBC 15.1 H RBC 3.57 L Hgb 11.7 L Hct 34.2 L MCV 96.0 MCH 32.8 MCHC 34.1 RDW 16.2 Plt Count 263 MPV 8.2 Neut % (Auto) 94.2 H Lymph % (Auto) 2.2 L [place] % (Auto) 3.4 Eos % (Auto) 0.1 Baso % (Auto) 0.1 Neut # (Auto) 14.3 H Lymph # (Auto) 0.3 L [place] # (Auto) 0.5 Eos # (Auto) 0.0 Baso # (Auto) 0.0 WBC Differential . Differential Comment Auto diff final PT 11.4 INR 1.1 Sodium 137 Potassium 3.5 D Chloride 104 Carbon Dioxide 23.0 Anion Gap 10 BUN 28 H Creatinine 1.23 Estimated GFR 58 L Random Glucose 108 H Calcium 9.0 Phosphorus Magnesium Total Bilirubin 0.8 AST 59 H ALT 60 Alkaline Phosphatase 88 Total Protein 7.4 D Albumin 2.7 L 07/25/18 07/25/18 04:57 04:57 WBC 10.6 RBC 3.26 L Hgb 10.7 L Hct 31.7 L MCV 97.4 MCH 32.7 MCHC 33.6 RDW 15.8 Plt Count 205 MPV 8.4 Neut % (Auto) 90.9 H Lymph % (Auto) 3.7 L [place] % (Auto) 5.1 Eos % (Auto) 0.2 Baso % (Auto) 0.1 Neut # (Auto) 9.7 H Lymph # (Auto) 0.4 L [place] # (Auto) 0.5 Eos # (Auto) 0.0 Baso # (Auto) 0.0 WBC Differential . Differential Comment Auto diff final PT INR Sodium 141 Potassium 3.7 Chloride 108 H Carbon Dioxide 21.8 Anion Gap 11 BUN 28 H Creatinine 1.08 Estimated GFR 68 L Random Glucose 84 Calcium 9.0 Phosphorus 3.3 Magnesium 2.3 Total Bilirubin AST ALT Alkaline Phosphatase Total Protein Albumin 2.2 L Microbiology 07/22/18 14:05 Blood - Peripheral Aerobic Blood Culture - Preliminary No growth in 2 days 07/22/18 14:05 Blood - Peripheral Anaerobic Blood Culture - Preliminary No growth in 2 days 07/22/18 14:10 Blood - Peripheral Aerobic Blood Culture - Preliminary No growth in 2 days 07/22/18 14:10 Blood - Peripheral Anaerobic Blood Culture - Preliminary No growth in 2 days - Imaging Impressions Abdomen/Pelvis CT 07/24/18 00:00 . CONCLUSION: 1. Large amount of free intraperitoneal air most likely from an upper abdominal source, distal esophagus or stomach. Splenic flecture, would be the other consideration. 2. There is no extravasation of contrast 3. Pelvis is unremarkable. 4. Findings were discussed with Dr. Douglas Assessment and Plan - Plan Mr. Moreira is a pleasant 68-year-old male with a history of hypertension, CAD who presents to the emergency department on 07/22/2018 due to 4-5-day duration of not feeling well, nausea vomiting and anorexia. ED work up shows leukocytosis with WBC 20 1.1K, CT studies finding of retropharyngeal and retroperitoneal air. Patient is being transferred to the main hospital. General surgeon Dr. Douglas is been consulted. //Acute diverticulitis //Severe Sepsis on admission -With tachycardia, leukocytosis, diverticulitis, acute kidney injury on admission -Due to intra-abdominal infection no need for blood cultures. sepsis continue. We'll treat with broad-spectrum antibiotics. Zosyn. = 07/24. Continue IV antibiotics for sepsis. Follow-up labs = 07/25. Leukocytosis has resolved. Cultures negative. Continue IV antibiotics //Retropharyngeal air //intraperitoneal air General surgery consulted. Discussed with Dr. Douglas who will see patient tonight. Continue IV fluid. Continue morphine for pain. Continue Zosyn 4.5 g every 6 hours for any gram-negative and anaerobic infection = 07/23. Vascular surgery following. Appreciate assistance. Retropharyngeal air likely secondary to air tracked from diverticular perforation. Appreciate vascular surgery assistance = 07/24. Repeat CT abdomen with increase in intraperitoneal air. Management as per vascular surgery. Appreciate assistance. = 07/25. Gastroenterology following. Planning for EGD to rule out upper GI rupture. Vascular surgery following. Appreciate assistance. //Suspected adrenal insufficiency. On chronic steroids. Will cont on stress dose steroids here //CAD s/p CABG //Hypertension -Holding anti-coagulation due to likely need for surgical intervention. You to hold lisinopril. Enalapril IV as needed for systolic blood pressure over 180. Continue to monitor. //Probable acute kidney injury Resolved. Place on maintenance fluids. //Anxiety. Patient requesting medication for anxiety. Will add benzo as needed. Full code. SCDs. Discharge Planning: If patient ends up needing surgery, may need rehab. Will order PT and OT evaluation.
--- NOTE | 2018-07-25 11:50 | P.PCN ---
Date of procedure: 07/25/18 Procedure: THANK YOU FOR THE REFERRAL Indication; free air in the abdomen, rule out peptic ulcer disease Procedure Performed; upper endoscopy with biopsy After informing the patient about procedure and possible complications consent was signed. history and physical were updated. Patient was taken to the procedure room and placed in position. Time out was completed. Adequate sedation was performed by anesthesia provider. Upper Endoscopy, the scope was placed in the mouth advanced under video guide to the second portion of the duodenum, then the scope was withdrawal to the stomach and retro-flexion was performed, the scope was withdrawal to the esophagus then out of the mouth without any immediate complication Findings; Esophagus: Irregular Z line biopsy from the EG junction to rule out short Shankar Stomach mild gastritis biopsy from the antrum Duodenum normal No reason for the free air on this procedure Recommendations; 1- Supportive care 2- ok to transfer to recovery area then discharge per protocol 3-follow-up biopsy 4-continue PPI 5- EGD as needed 6-further plan by surgery team 7-we will follow-up as needed
--- NOTE | 2018-07-25 11:53 | P.PNGI ---
Subjective Interval history: Patient is doing well no complaint at this time no nausea or vomiting no abdominal pain Physical Exam Vital signs: Vital Signs 07/24/18 12:00 07/24/18 16:00 07/24/18 20:00 Temperature 98.1 F 98.0 F 97.9 F Pulse Rate 78 89 79 Respiratory Rate 16 16 16 Blood Pressure 152/76 H 144/85 H 174/86 H Pulse Oximetry 94 L 96 94 L 07/25/18 00:00 07/25/18 04:00 07/25/18 07:26 Temperature 98.5 F 98.5 F 98.0 F Pulse Rate 89 94 H 73 Respiratory Rate 17 17 Blood Pressure 141/76 H 158/94 H 158/82 H Pulse Oximetry 93 L 96 94 L 07/25/18 08:00 Temperature Pulse Rate 69 Respiratory Rate Blood Pressure Pulse Oximetry Intake & Output 07/24/18 07/25/18 07/25/18 18:59 06:59 18:59 Intake Total 200 / 200 200 / 200 Output Total 2100 / 2100 300 / 300 Balance -1900 / -1900 -100 / -100 Weight 84.1 kg Intake: IV 200 / 200 200 / 200 Zosyn 4.5 GM Premix 4.5 gm In 200 / 200 200 / 200 100 ml @ 200 mls/hr IV.SIG Q6H DEMETRIUS Rx#:[id number] Oral 0 / 0 0 / 0 Output: Urine 2100 / 2100 300 / 300 Other: # Voids 6 4 Date of Last Bowel Movement 07/24/18 07/24/18 07/24/18 # Bowel Movements 2 1 - Constitutional no acute distress - Routine HEENT Exam Head: Present: normocephalic Eye: Present: EOMI, PERRL ENT: Present: mucous membranes moist - Routine Neck Exam Present: supple, full ROM - Routine Respiratory Exam Present: CTA bilaterally - Routine Cardiovascular Exam Present: RRR, S1, S2 - Routine Abdominal Exam Present: soft, distended Comments: Mild diffuse discomfort throughout the abdomen - Routine Extremities Exam Present: full ROM - Routine Neurological Exam Present: alert, oriented X3 - Routine Psychiatric Exam Present: normal affect Results - Labs CBC & Chem 7: 07/25/18 04:57 07/25/18 04:57 Laboratory Results - last 24 hr 07/24/18 07/24/18 07/24/18 16:42 17:28 17:28 WBC 15.1 H RBC 3.57 L Hgb 11.7 L Hct 34.2 L MCV 96.0 MCH 32.8 MCHC 34.1 RDW 16.2 Plt Count 263 MPV 8.2 Neut % (Auto) 94.2 H Lymph % (Auto) 2.2 L [place] % (Auto) 3.4 Eos % (Auto) 0.1 Baso % (Auto) 0.1 Neut # (Auto) 14.3 H Lymph # (Auto) 0.3 L [place] # (Auto) 0.5 Eos # (Auto) 0.0 Baso # (Auto) 0.0 WBC Differential . Differential Comment Auto diff final PT 11.4 INR 1.1 Sodium 137 Potassium 3.5 D Chloride 104 Carbon Dioxide 23.0 Anion Gap 10 BUN 28 H Creatinine 1.23 Estimated GFR 58 L Random Glucose 108 H Calcium 9.0 Phosphorus Magnesium Total Bilirubin 0.8 AST 59 H ALT 60 Alkaline Phosphatase 88 Total Protein 7.4 D Albumin 2.7 L 07/25/18 07/25/18 04:57 04:57 WBC 10.6 RBC 3.26 L Hgb 10.7 L Hct 31.7 L MCV 97.4 MCH 32.7 MCHC 33.6 RDW 15.8 Plt Count 205 MPV 8.4 Neut % (Auto) 90.9 H Lymph % (Auto) 3.7 L [place] % (Auto) 5.1 Eos % (Auto) 0.2 Baso % (Auto) 0.1 Neut # (Auto) 9.7 H Lymph # (Auto) 0.4 L [place] # (Auto) 0.5 Eos # (Auto) 0.0 Baso # (Auto) 0.0 WBC Differential . Differential Comment Auto diff final PT INR Sodium 141 Potassium 3.7 Chloride 108 H Carbon Dioxide 21.8 Anion Gap 11 BUN 28 H Creatinine 1.08 Estimated GFR 68 L Random Glucose 84 Calcium 9.0 Phosphorus 3.3 Magnesium 2.3 Total Bilirubin AST ALT Alkaline Phosphatase Total Protein Albumin 2.2 L Microbiology 07/22/18 14:05 Blood - Peripheral Aerobic Blood Culture - Preliminary No growth in 3 days 07/22/18 14:05 Blood - Peripheral Anaerobic Blood Culture - Preliminary No growth in 3 days 07/22/18 14:10 Blood - Peripheral Aerobic Blood Culture - Preliminary No growth in 3 days 07/22/18 14:10 Blood - Peripheral Anaerobic Blood Culture - Preliminary No growth in 3 days - Imaging Impressions Abdomen/Pelvis CT 07/24/18 00:00 . CONCLUSION: 1. Large amount of free intraperitoneal air most likely from an upper abdominal source, distal esophagus or stomach. Splenic flecture, would be the other consideration. 2. There is no extravasation of contrast 3. Pelvis is unremarkable. 4. Findings were discussed with Dr. Douglas Assessment and Plan - Plan Patient is doing well, no significant abdominal pain, white count improved, had an upper endoscopy today Findings; Esophagus: Irregular Z line biopsy from the EG junction to rule out short Shankar Stomach mild gastritis biopsy from the antrum Duodenum normal No reason for the free air on this procedure Recommendations; 1- Supportive care 2- ok to transfer to recovery area then discharge per protocol 3-follow-up biopsy 4-continue PPI 5- EGD as needed 6-further plan by surgery team 7-we will follow-up as needed
[2018-07-25] MEDS: Potassium Chloride Inj 10 MEQ in Sodium Chloride 0.45 % Inj 1,000 ML IV.CONT SCH (14:53)
--- NOTE | 2018-07-25 15:50 | P.PNVS ---
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 As noted in my original consultation I evaluate the patient carefully and he certainly did not appear clinically ill as most patients with Boerhaave syndrome would. Patients with Boerhaave syndrome I usually sweating, pale almost catatonic in chest pain and guarding in all 4 quadrants Those patients deteriorate very rapidly and unless surgery is performed they dying a very short period of time This gentleman appeared quite comfortable with mild abdominal pain and clearly not septic Therefore the remaining diagnoses were possible rupture of a Zenker's diverticulum or an intra-abdominal source. Esophageal swallow clearly shows clean esophagus without any lesions or leaks. On the other hand patient does have some thickening of the descending colon and proximal sigmoid as well as tracking air in the retroperitoneum therefore working diagnosis should be perforated diverticulum of the proximal sigmoid colon with tracking into the retroperitoneum and higher up into the chest Today abdomen is soft with active bowel sounds and tender in the left hemiabdomen Patient states the tenderness started last night White count is normalizing and left shift is receding Would keep on IV antibiotics will advance diet and repeat CT scan of the abdomen and pelvis on After that if patient does well he can go home on oral antibiotics follow-up with the gastroenterology for repeat colonoscopy in about a month and depending on the findings likelihood is we will schedule him for left colon/sigmoid elective resection In the face of retroperitoneal perforation dissection this is not the type of diverticulitis that should be left and only treated medically likely due for majority of diverticular disease these days 07/24/2018 Abdomen is soft active bowel sounds no rebound no guarding no masses Tender in the left midabdomen at this time Patient is greatly improved clinically and leukocytosis is resolved At this point working diagnosis is definitely sigmoid/descending colon diverticulitis with retroperitoneal perforation We will repeat CT scan of the abdomen and pelvis and see what this looks like but now with oral contrast All things equal barring any surprises clinically or diagnostically, patient can be advanced to low residue diet after the CT scan and probably discharged on oral antibiotics tomorrow We will keep on IV antibiotics for at least another day On the other hand if the CT scan reveals any surprises this may change the course of therapy and approach Addendum Patient underwent CT of abdomen and pelvis with IV and p.o. contrast which reveals reduction and near disappearance of the air in the paraesophageal area however now patient has fairly large pneumoperitoneum and air in the retroperitoneum. There is some abnormality and irregularity of the barium collection and descending colon and I still think that this is the source of patient's perforation. Nonetheless with this amount of air I believe EGD is warranted to make sure patient does not have a posterior duodenal or gastric ulcer which could cause the same Spoken Dr. Kenney about the case and spoken to Dr. Vines who will go ahead with EGD. If patient does not have a posterior penetrating or perforating ulcer which I do not think will be the case then patient will need colon resection at this admission because he is a continuous leak and I discussed this at length with the patient 07/25/2018 Patient is awake alert oriented feels well As the swelling of the bowel decreases I believe patient will pass gas and have normal bowel movements Upper endoscopy did not reveal any significant findings except some gastritis so clearly there is coming from the left colon posterior perforation Well CT scan appears to be very dramatic patient is doing well and clinically stable As always these residents with no not operating CT scans and laboratory studies but rather on patients. This patient appears to be clinically stable and considering the significance and complexity of surgery I am certainly hard pressed to operate at this time In the best case scenario patient should be allowed to cool down have repeat CAT scan if that shows more no residual free air, surgery will be mandatory In the meantime will place patient on clear liquids and see how he does Objective Vital Signs / I&O: Vital Signs 07/24/18 16:00 07/24/18 20:00 07/25/18 00:00 Temperature 98.0 F 97.9 F 98.5 F Pulse Rate 89 79 89 Respiratory Rate 16 16 17 Blood Pressure 144/85 H 174/86 H 141/76 H Pulse Oximetry 96 94 L 93 L 07/25/18 04:00 07/25/18 07:26 07/25/18 08:00 Temperature 98.5 F 98.0 F Pulse Rate 94 H 73 69 Respiratory Rate 17 Blood Pressure 158/94 H 158/82 H Pulse Oximetry 96 94 L 07/25/18 12:32 07/25/18 13:23 07/25/18 13:27 Temperature 97.2 F L 97.6 F Pulse Rate 76 83 Respiratory Rate 16 18 Blood Pressure 158/82 H 179/97 H 160/90 H Pulse Oximetry 96 95 Intake & Output 07/24/18 07/25/18 07/25/18 18:59 06:59 18:59 Intake Total 200 / 200 200 / 200 100 / 100 Output Total 2099 300 / 300 Balance -1900 / -1900 -100 / -100 100 / 100 Weight 84.1 kg Intake: IV 200 / 200 200 / 200 100 / 100 Zosyn 4.5 GM Premix 4.5 gm In 200 / 200 200 / 200 100 / 100 100 ml @ 200 mls/hr IV.SIG Q6H DEMETRIUS Rx#:[id number] Oral 0 / 0 0 / 0 Output: Urine 2099 300 / 300 Other: # Voids 6 4 Date of Last Bowel Movement 07/24/18 07/24/18 07/24/18 # Bowel Movements 2 1 Laboratory Results - last 24 hr 07/24/18 07/24/18 07/24/18 16:42 17:28 17:28 WBC 15.1 H RBC 3.57 L Hgb 11.7 L Hct 34.2 L MCV 96.0 MCH 32.8 MCHC 34.1 RDW 16.2 Plt Count 263 MPV 8.2 Neut % (Auto) 94.2 H Lymph % (Auto) 2.2 L [place] % (Auto) 3.4 Eos % (Auto) 0.1 Baso % (Auto) 0.1 Neut # (Auto) 14.3 H Lymph # (Auto) 0.3 L [place] # (Auto) 0.5 Eos # (Auto) 0.0 Baso # (Auto) 0.0 WBC Differential . Differential Comment Auto diff final PT 11.4 INR 1.1 Sodium 137 Potassium 3.5 D Chloride 104 Carbon Dioxide 23.0 Anion Gap 10 BUN 28 H Creatinine 1.23 Estimated GFR 58 L Random Glucose 108 H Calcium 9.0 Phosphorus Magnesium Total Bilirubin 0.8 AST 59 H ALT 60 Alkaline Phosphatase 88 Total Protein 7.4 D Albumin 2.7 L 07/25/18 07/25/18 04:57 04:57 WBC 10.6 RBC 3.26 L Hgb 10.7 L Hct 31.7 L MCV 97.4 MCH 32.7 MCHC 33.6 RDW 15.8 Plt Count 205 MPV 8.4 Neut % (Auto) 90.9 H Lymph % (Auto) 3.7 L [place] % (Auto) 5.1 Eos % (Auto) 0.2 Baso % (Auto) 0.1 Neut # (Auto) 9.7 H Lymph # (Auto) 0.4 L [place] # (Auto) 0.5 Eos # (Auto) 0.0 Baso # (Auto) 0.0 WBC Differential . Differential Comment Auto diff final PT INR Sodium 141 Potassium 3.7 Chloride 108 H Carbon Dioxide 21.8 Anion Gap 11 BUN 28 H Creatinine 1.08 Estimated GFR 68 L Random Glucose 84 Calcium 9.0 Phosphorus 3.3 Magnesium 2.3 Total Bilirubin AST ALT Alkaline Phosphatase Total Protein Albumin 2.2 L Microbiology 07/22/18 14:05 Aerobic Blood Culture - Preliminary Blood - Peripheral No growth in 3 days Anaerobic Blood Culture - Preliminary No growth in 3 days 07/22/18 14:10 Aerobic Blood Culture - Preliminary Blood - Peripheral No growth in 3 days Anaerobic Blood Culture - Preliminary No growth in 3 days Impressions Abdomen/Pelvis CT 07/24/18 00:00 . CONCLUSION: 1. Large amount of free intraperitoneal air most likely from an upper abdominal source, distal esophagus or stomach. Splenic flecture, would be the other consideration. 2. There is no extravasation of contrast 3. Pelvis is unremarkable. 4. Findings were discussed with Dr. Douglas
[2018-07-25] MEDS: Pantoprazole Sodium 20 MG DR Tablet PO SCH (17:32)
[2018-07-26] MEDS: Piperacil/Tazo 4.5 GM Premix 4.5 GM/100 ML BAG IV.SIG SCH ×4 (00:14→17:22)
[2018-07-26] MEDS: Potassium Chloride Inj 10 MEQ in Sodium Chloride 0.45 % Inj 1,000 ML IV.CONT SCH ×3 (03:39→17:17)
[2018-07-26] MEDS: Hydrocortisone Sod Succinate 100 MG Vial IV.PUSH SCH ×3 (06:42→21:31)
[2018-07-26 07:21] LABS: Baso % (Auto) 0.1 % (0.0-2.0); Eos % (Auto) 0.2 % (0.0-4.0); Hematocrit 32.9 % (39.0-51.0); Hemoglobin 11.2 gm/dL (13.0-17.0); Lymph # (Auto) 0.6 th/mm3 (1.0-4.8); Lymph % (Auto) 5.7 % (9.0-44.0); Mean Corpuscular HGB Conc 33.9 % (32.0-36.0); Mean Corpuscular Hemoglobin 32.5 pg (27.0-34.0); Mean Corpuscular Volume 95.9 fL (80.0-100.0); Mean Platelet Volume 7.4 fL (7.0-11.0); Mono # (Auto) 0.5 th/mm3 (0.0-0.9); Mono % (Auto) 4.4 % (0.0-8.0); Neut # (Auto) 9.5 th/mm3 (1.8-7.7); Neut % (Auto) 89.6 % (16.0-70.0); Platelet Count 255 th/mm3 (150-450); Red Blood Count 3.43 mil/mm3 (4.50-5.90); Red Cell Distribution Width 15.4 % (11.6-17.2); White Blood Count 10.6 th/mm3 (4.0-11.0)
[2018-07-26 07:48] LABS: Albumin 2.3 g/dL (3.4-5.0); Carbon Dioxide 23.7 meq/L (21.0-32.0); Magnesium 2.3 mg/dL (1.5-2.5); Potassium 3.9 meq/L (3.5-5.1)
[2018-07-26 07:51] LABS: Phosphorus 3.7 mg/dL (2.5-4.9); Total Protein 6.5 g/dL (6.4-8.2)
[2018-07-26] MEDS: Morphine Inj 4 MG/ML Vial IV.PUSH PRN ×4 (08:16→22:13)
[2018-07-26] MEDS: Folic Acid 1 MG Tablet PO SCH (08:16)
[2018-07-26] MEDS: Sodium Chloride 0.9% 2 ML Flush BID IV.FLUSH SCH ×2 (08:18→20:25)
[2018-07-26 08:52] LABS: Lymphocytes 7 % (9-44); Platelet Estimate Normal (Normal); Platelet Morphology Normal (Normal); Promyelocyte 1 % (0-0); Toxic Granulation 2+
--- NOTE | 2018-07-26 10:49 | P.PNVS ---
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 As noted in my original consultation I evaluate the patient carefully and he certainly did not appear clinically ill as most patients with Boerhaave syndrome would. Patients with Boerhaave syndrome I usually sweating, pale almost catatonic in chest pain and guarding in all 4 quadrants Those patients deteriorate very rapidly and unless surgery is performed they dying a very short period of time This gentleman appeared quite comfortable with mild abdominal pain and clearly not septic Therefore the remaining diagnoses were possible rupture of a Zenker's diverticulum or an intra-abdominal source. Esophageal swallow clearly shows clean esophagus without any lesions or leaks. On the other hand patient does have some thickening of the descending colon and proximal sigmoid as well as tracking air in the retroperitoneum therefore working diagnosis should be perforated diverticulum of the proximal sigmoid colon with tracking into the retroperitoneum and higher up into the chest Today abdomen is soft with active bowel sounds and tender in the left hemiabdomen Patient states the tenderness started last night White count is normalizing and left shift is receding Would keep on IV antibiotics will advance diet and repeat CT scan of the abdomen and pelvis on After that if patient does well he can go home on oral antibiotics follow-up with the gastroenterology for repeat colonoscopy in about a month and depending on the findings likelihood is we will schedule him for left colon/sigmoid elective resection In the face of retroperitoneal perforation dissection this is not the type of diverticulitis that should be left and only treated medically likely due for majority of diverticular disease these days 07/24/2018 Abdomen is soft active bowel sounds no rebound no guarding no masses Tender in the left midabdomen at this time Patient is greatly improved clinically and leukocytosis is resolved At this point working diagnosis is definitely sigmoid/descending colon diverticulitis with retroperitoneal perforation We will repeat CT scan of the abdomen and pelvis and see what this looks like but now with oral contrast All things equal barring any surprises clinically or diagnostically, patient can be advanced to low residue diet after the CT scan and probably discharged on oral antibiotics tomorrow We will keep on IV antibiotics for at least another day On the other hand if the CT scan reveals any surprises this may change the course of therapy and approach Addendum Patient underwent CT of abdomen and pelvis with IV and p.o. contrast which reveals reduction and near disappearance of the air in the paraesophageal area however now patient has fairly large pneumoperitoneum and air in the retroperitoneum. There is some abnormality and irregularity of the barium collection and descending colon and I still think that this is the source of patient's perforation. Nonetheless with this amount of air I believe EGD is warranted to make sure patient does not have a posterior duodenal or gastric ulcer which could cause the same Spoken Dr. Kenney about the case and spoken to Dr. Vines who will go ahead with EGD. If patient does not have a posterior penetrating or perforating ulcer which I do not think will be the case then patient will need colon resection at this admission because he is a continuous leak and I discussed this at length with the patient 07/25/2018 Patient is awake alert oriented feels well As the swelling of the bowel decreases I believe patient will pass gas and have normal bowel movements Upper endoscopy did not reveal any significant findings except some gastritis so clearly there is coming from the left colon posterior perforation Well CT scan appears to be very dramatic patient is doing well and clinically stable As always these residents with no not operating CT scans and laboratory studies but rather on patients. This patient appears to be clinically stable and considering the significance and complexity of surgery I am certainly hard pressed to operate at this time In the best case scenario patient should be allowed to cool down have repeat CAT scan if that shows more no residual free air, surgery will be mandatory In the meantime will place patient on clear liquids and see how he does 07/26/2018 Patient is awake alert and oriented Abdomen is soft active bowel sounds slightly distended Tolerating p.o. diet passing gas having bowel movements EGD revealed some gastritis but clearly no source of perforation so at this time left colon is the culprit and the working diagnosis is that of small perforated area of the left colonic diverticulosis Patient is clinically doing very well and I am hard pressed to offer him surgery at this point Will repeat CT scan of the abdomen and pelvis tomorrow and possibly do barium enema Pending on this we will decide if this is something we should address now or allow patient to call down and address electively On one hand it is hard to watch a patient have a free air in the abdomen and do nothing but on the other hand patient is clinically stable with normal white count although with left shift so it is hard to make a case to do surgery in this clinical setting Agree with Dr. Vines and medicine Objective Vital Signs / I&O: Vital Signs 07/25/18 12:32 07/25/18 13:23 07/25/18 13:27 Temperature 97.2 F L 97.6 F Pulse Rate 76 83 Respiratory Rate 16 18 Blood Pressure 158/82 H 179/97 H 160/90 H Pulse Oximetry 96 95 07/25/18 16:00 07/25/18 20:00 07/26/18 00:00 Temperature 98.2 F 97.6 F 96.6 F L Pulse Rate 71 87 73 Respiratory Rate 18 20 20 Blood Pressure 170/90 H 169/87 H 168/92 H Pulse Oximetry 96 98 96 07/26/18 04:00 07/26/18 08:00 07/26/18 08:30 Temperature 98.5 F 98.5 F Pulse Rate 88 77 Respiratory Rate 20 18 Blood Pressure 141/84 H 158/91 H Pulse Oximetry 92 L 98 92 L Intake & Output 07/25/18 07/26/18 07/26/18 18:59 06:59 18:59 Intake Total 760 / 760 1825 / 1825 100 / 100 Output Total 275 / 275 Balance 760 / 760 1550 / 1550 100 / 100 Weight 82.6 kg Intake: IV 200 / 200 1105 / 1105 100 / 100 KCl Inj 10 MEQ In 1/2 Normal 1005 / 1005 Saline Inj 1,000 ML @ 84 mls/hr IV.CONT .[id number] DEMETRIUS Rx#: [id number] Zosyn 4.5 GM Premix 4.5 gm In 200 / 200 100 / 100 100 / 100 100 ml @ 200 mls/hr IV.SIG Q6H DEMETRIUS Rx#:[id number] Oral 360 / 360 720 / 720 Anesthesia Amount 200 / 200 Output: Urine 275 / 275 Other: # Voids 2 Date of Last Bowel Movement 07/24/18 07/25/18 07/24/18 # Bowel Movements 1 Laboratory Results - last 24 hr 07/26/18 07/26/18 06:57 06:57 WBC 10.6 RBC 3.43 L Hgb 11.2 L Hct 32.9 L MCV 95.9 MCH 32.5 MCHC 33.9 RDW 15.4 Plt Count 255 MPV 7.4 Prelim Diff (Auto) Slide review pending Neut % (Auto) 89.6 H Lymph % (Auto) 5.7 L [place] % (Auto) 4.4 Eos % (Auto) 0.2 Baso % (Auto) 0.1 Neut # (Auto) 9.5 H Lymph # (Auto) 0.6 L [place] # (Auto) 0.5 Eos # (Auto) 0.0 Baso # (Auto) 0.0 WBC Differential Manual diff final Seg Neuts % (Manual) 88 H Band Neuts % (Manual) 4 Lymphocytes % (Manual) 7 L Promyelocytes % (Man) 1 H Abs Neuts (Manual) 9.9 H Differential Comment . Toxic Granulation 2+ H Platelet Estimate Normal Platelet Morphology Normal Sodium 142 Potassium 3.9 Chloride 109 H Carbon Dioxide 23.7 Anion Gap 9 BUN 28 H Creatinine 1.14 Estimated GFR 64 L Random Glucose 97 Calcium 9.0 Phosphorus 3.7 Magnesium 2.3 Total Bilirubin 0.5 Direct Bilirubin 0.2 Indirect Bilirubin 0.3 AST 43 H ALT 53 Alkaline Phosphatase 71 Total Protein 6.5 D Albumin 2.3 L Microbiology 07/22/18 14:05 Aerobic Blood Culture - Preliminary Blood - Peripheral No growth in 3 days Anaerobic Blood Culture - Preliminary No growth in 3 days 07/22/18 14:10 Aerobic Blood Culture - Preliminary Blood - Peripheral No growth in 3 days Anaerobic Blood Culture - Preliminary No growth in 3 days Impressions Abdomen/Pelvis CT 07/24/18 00:00 . CONCLUSION: 1. Large amount of free intraperitoneal air most likely from an upper abdominal source, distal esophagus or stomach. Splenic flecture, would be the other consideration. 2. There is no extravasation of contrast 3. Pelvis is unremarkable. 4. Findings were discussed with Dr. Douglas
--- NOTE | 2018-07-26 18:28 | P.PNIM ---
Subjective Interval history: Patient says he is feeling all right. Denies any chest pain shortness of breath. Denies nausea or vomiting. She wants something to help him sleep tonight. Asking for Valium. Physical Exam Vital signs: Vital Signs 07/25/18 20:00 07/26/18 00:00 07/26/18 04:00 Temperature 97.6 F 96.6 F L 98.5 F Pulse Rate 87 73 88 Respiratory Rate 20 20 20 Blood Pressure 169/87 H 168/92 H 141/84 H Pulse Oximetry 98 96 92 L 07/26/18 08:00 07/26/18 08:30 07/26/18 12:00 Temperature 98.5 F 98 F Pulse Rate 63 93 H Respiratory Rate 18 18 Blood Pressure 158/91 H 157/88 H Pulse Oximetry 98 92 L 96 07/26/18 16:00 07/26/18 17:15 Temperature 98.1 F Pulse Rate 68 Respiratory Rate 16 Blood Pressure 158/90 H Pulse Oximetry 96 96 Intake & Output 07/25/18 07/26/18 07/26/18 18:59 06:59 18:59 Intake Total 760 / 760 1825 / 1825 1205 / 1205 Output Total 275 / 275 Balance 760 / 760 1550 / 1550 1205 / 1205 Weight 82.6 kg Intake: IV 200 / 200 1105 / 1105 1205 / 1205 KCl Inj 10 MEQ In 1/2 Normal 1005 / 1005 1005 / 1005 Saline Inj 1,000 ML @ 84 mls/hr IV.CONT .[id number] DEMETRIUS Rx#: [id number] Zosyn 4.5 GM Premix 4.5 gm In 200 / 200 100 / 100 200 / 200 100 ml @ 200 mls/hr IV.SIG Q6H DEMETRIUS Rx#:[id number] Oral 360 / 360 720 / 720 Anesthesia Amount 200 / 200 Output: Urine 275 / 275 Other: # Voids 2 Date of Last Bowel Movement 07/24/18 07/25/18 07/24/18 # Bowel Movements 1 Narrative: GENERAL: lying in bed. Appears comfortable. SKIN: Warm and dry. HEAD: Normocephalic. EYES: No scleral icterus. No injection or drainage. NECK: Supple, trachea midline. No JVD. CARDIOVASCULAR: Regular rate and rhythm without murmurs, gallops, or rubs. RESPIRATORY: Breath sounds equal bilaterally. No accessory muscle use. GASTROINTESTINAL: Abdomen still hyperresonant today, unchanged from yesterday. Nontender. No rebound or guarding. MUSCULOSKELETAL: No cyanosis, or edema. BACK: Nontender without obvious deformity. No CVA tenderness. Results - Labs CBC & Chem 7: 07/26/18 06:57 07/26/18 06:57 Laboratory Results - last 24 hr 07/26/18 07/26/18 06:57 06:57 WBC 10.6 RBC 3.43 L Hgb 11.2 L Hct 32.9 L MCV 95.9 MCH 32.5 MCHC 33.9 RDW 15.4 Plt Count 255 MPV 7.4 Prelim Diff (Auto) Slide review pending Neut % (Auto) 89.6 H Lymph % (Auto) 5.7 L [place] % (Auto) 4.4 Eos % (Auto) 0.2 Baso % (Auto) 0.1 Neut # (Auto) 9.5 H Lymph # (Auto) 0.6 L [place] # (Auto) 0.5 Eos # (Auto) 0.0 Baso # (Auto) 0.0 WBC Differential Manual diff final Seg Neuts % (Manual) 88 H Band Neuts % (Manual) 4 Lymphocytes % (Manual) 7 L Promyelocytes % (Man) 1 H Abs Neuts (Manual) 9.9 H Differential Comment . Toxic Granulation 2+ H Platelet Estimate Normal Platelet Morphology Normal Sodium 142 Potassium 3.9 Chloride 109 H Carbon Dioxide 23.7 Anion Gap 9 BUN 28 H Creatinine 1.14 Estimated GFR 64 L Random Glucose 97 Calcium 9.0 Phosphorus 3.7 Magnesium 2.3 Total Bilirubin 0.5 Direct Bilirubin 0.2 Indirect Bilirubin 0.3 AST 43 H ALT 53 Alkaline Phosphatase 71 Total Protein 6.5 D Albumin 2.3 L Microbiology 07/22/18 14:05 Blood - Peripheral Aerobic Blood Culture - Preliminary No growth in 4 days 07/22/18 14:05 Blood - Peripheral Anaerobic Blood Culture - Preliminary No growth in 4 days 07/22/18 14:10 Blood - Peripheral Aerobic Blood Culture - Preliminary No growth in 4 days 07/22/18 14:10 Blood - Peripheral Anaerobic Blood Culture - Preliminary No growth in 4 days Assessment and Plan - Plan Mr. Moreira is a pleasant 68-year-old male with a history of hypertension, CAD who presents to the emergency department on 07/22/2018 due to 4-5-day duration of not feeling well, nausea vomiting and anorexia. ED work up shows leukocytosis with WBC 20 1.1K, CT studies finding of retropharyngeal and retroperitoneal air. Patient is being transferred to the main hospital. General surgeon Dr. Douglas is been consulted. //Acute diverticulitis //Severe Sepsis on admission -With tachycardia, leukocytosis, diverticulitis, acute kidney injury on admission -Due to intra-abdominal infection no need for blood cultures. sepsis continue. We'll treat with broad-spectrum antibiotics. Zosyn. = 07/24. Continue IV antibiotics for sepsis. Follow-up labs = 07/25. Leukocytosis has resolved. Cultures negative. Continue IV antibiotics //Retropharyngeal air //intraperitoneal air General surgery consulted. Discussed with Dr. Douglas who will see patient tonight. Continue IV fluid. Continue morphine for pain. Continue Zosyn 4.5 g every 6 hours for any gram-negative and anaerobic infection = 07/23. Vascular surgery following. Appreciate assistance. Retropharyngeal air likely secondary to air tracked from diverticular perforation. Appreciate vascular surgery assistance = 07/24. Repeat CT abdomen with increase in intraperitoneal air. Management as per vascular surgery. Appreciate assistance. = 07/25. Gastroenterology following. Planning for EGD to rule out upper GI rupture. Vascular surgery following. Appreciate assistance. = 07/26. EGD yesterday negative for upper GI perforation. Vascular surgery following. Appreciate assistance. //Suspected adrenal insufficiency. On chronic steroids. Will cont on stress dose steroids here //CAD s/p CABG //Hypertension -Holding anti-coagulation due to likely need for surgical intervention. cont to hold lisinopril. Enalapril IV as needed for systolic blood pressure over 180. Continue to monitor. //Probable acute kidney injury Resolved. Place on maintenance fluids. //Insomnia. Valium ordered as requested. //Anxiety. Treating insomnia as above Full code. SCDs. Discharge Planning: If patient ends up needing surgery, may need rehab, otherwise will probably go home with home health when cleared by surgery. -
[2018-07-26] MEDS: Pantoprazole Sodium 20 MG DR Tablet PO SCH (18:58)
[2018-07-26] MEDS: diazePAM 5 MG Tablet PO PRN (22:13)
[2018-07-27] MEDS: Piperacil/Tazo 4.5 GM Premix 4.5 GM/100 ML BAG IV.SIG SCH ×5 (00:23→23:37)
[2018-07-27] MEDS: Potassium Chloride Inj 10 MEQ in Sodium Chloride 0.45 % Inj 1,000 ML IV.CONT SCH ×2 (00:24→05:28)
[2018-07-27] MEDS: Morphine Inj 4 MG/ML Vial IV.PUSH PRN ×5 (02:04→21:54)
[2018-07-27] MEDS: Hydrocortisone Sod Succinate 100 MG Vial IV.PUSH SCH ×2 (06:42→20:34)
[2018-07-27] MEDS: Sodium Chloride 0.9% 2 ML Flush BID IV.FLUSH SCH ×2 (09:31→20:33)
[2018-07-27] MEDS: Folic Acid 1 MG Tablet PO SCH (09:31)
--- NOTE | 2018-07-27 10:35 | P.PNIM ---
Subjective Interval history: Patient reports abdominal pain is controlled. Denies any nausea or vomiting. Patient says he is very anxious prior to Gastrografin enema this morning, with unable to go through for the procedure. Would like something for anxiety Physical Exam Vital signs: Vital Signs 07/26/18 12:00 07/26/18 16:00 07/26/18 17:15 Temperature 98 F 98.1 F Pulse Rate 93 H 64 Respiratory Rate 18 16 Blood Pressure 157/88 H 158/90 H Pulse Oximetry 96 96 96 07/26/18 20:00 07/27/18 00:00 07/27/18 04:00 Temperature 97.8 F 98.0 F 97.6 F Pulse Rate 64 67 63 Respiratory Rate 16 18 16 Blood Pressure 181/89 H 151/72 H 138/79 Pulse Oximetry 97 94 L 95 Intake & Output 07/26/18 07/27/18 07/27/18 18:59 06:59 18:59 Intake Total 2025 / 2025 1105 / 1105 Output Total 800 / 800 450 / 450 Balance 1225 / 1225 655 / 655 Weight 84.2 kg Intake: IV 1305 / 1305 1105 / 1105 KCl Inj 10 MEQ In 1/2 Normal 1005 / 1005 1005 / 1005 Saline Inj 1,000 ML @ 84 mls/hr IV.CONT .[id number] DEMETRIUS Rx#: [id number] Zosyn 4.5 GM Premix 4.5 gm In 300 / 300 100 / 100 100 ml @ 200 mls/hr IV.SIG Q6H DEMETRIUS Rx#:[id number] Oral 720 / 720 0 / 0 Output: Urine 800 / 800 450 / 450 Other: Date of Last Bowel Movement 07/24/18 07/24/18 # Bowel Movements 3 1 Narrative: GENERAL: lying in bed. Appears comfortable. SKIN: Warm and dry. HEAD: Normocephalic. EYES: No scleral icterus. No injection or drainage. NECK: Supple, trachea midline. No JVD. CARDIOVASCULAR: Regular rate and rhythm without murmurs, gallops, or rubs. RESPIRATORY: Breath sounds equal bilaterally. No accessory muscle use. GASTROINTESTINAL: Abdomen still hyperresonant today, unchanged from yesterday. Nontender. No rebound or guarding. Exam unchanged. MUSCULOSKELETAL: No cyanosis, trace peripheral edema. BACK: Nontender without obvious deformity. No CVA tenderness. Results - Labs CBC & Chem 7: 07/26/18 06:57 07/26/18 06:57 Microbiology 07/22/18 14:05 Blood - Peripheral Aerobic Blood Culture - Preliminary No growth in 4 days 07/22/18 14:05 Blood - Peripheral Anaerobic Blood Culture - Preliminary No growth in 4 days 07/22/18 14:10 Blood - Peripheral Aerobic Blood Culture - Preliminary No growth in 4 days 07/22/18 14:10 Blood - Peripheral Anaerobic Blood Culture - Preliminary No growth in 4 days Assessment and Plan - Plan Mr. Moreira is a pleasant 68-year-old male with a history of hypertension, CAD who presents to the emergency department on 07/22/2018 due to 4-5-day duration of not feeling well, nausea vomiting and anorexia. ED work up shows leukocytosis with WBC 20 1.1K, CT studies finding of retropharyngeal and retroperitoneal air. Patient is being transferred to the main hospital. General surgeon Dr. Douglas is been consulted. //Acute diverticulitis //Severe Sepsis on admission -With tachycardia, leukocytosis, diverticulitis, acute kidney injury on admission -Due to intra-abdominal infection no need for blood cultures. sepsis continue. We'll treat with broad-spectrum antibiotics. Zosyn. = 07/24. Continue IV antibiotics for sepsis. Follow-up labs = Leukocytosis has resolved. Cultures negative. Continue IV antibiotics //Retropharyngeal air //intraperitoneal air General surgery consulted. Discussed with Dr. Douglas who will see patient tonight. Continue IV fluid. Continue morphine for pain. Continue Zosyn 4.5 g every 6 hours for any gram-negative and anaerobic infection = 07/23. Vascular surgery following. Appreciate assistance. Retropharyngeal air likely secondary to air tracked from diverticular perforation. Appreciate vascular surgery assistance = 07/24. Repeat CT abdomen with increase in intraperitoneal air. Management as per vascular surgery. Appreciate assistance. = 07/25. Gastroenterology following. Planning for EGD to rule out upper GI rupture. Vascular surgery following. Appreciate assistance. = 07/26. EGD yesterday negative for upper GI perforation. Vascular surgery following. Appreciate assistance. = 07/27. Gastrografin enema pending. Abdomen prior due to anxiety. //Suspected adrenal insufficiency. On chronic steroids. Will cont on stress dose steroids here. = Decrease steroids further. Only 25 of hydrocortisone twice daily now. May need increase if undergoes surgery. //CAD s/p CABG //Hypertension -Holding anti-coagulation due to likely need for surgical intervention. cont to hold lisinopril. Enalapril IV as needed for systolic blood pressure over 180. Continue to monitor. //Probable acute kidney injury Resolved. = 07/27 slight bilateral lower extremity edema. Dc iv fluids. Monitor renal function //Insomnia. Improved with Valium. //Anxiety. Treating insomnia as above Full code. SCDs. Discharge Planning: If patient ends up needing surgery, may need rehab, otherwise will probably go home with home health when cleared by surgery. -
--- NOTE | 2018-07-27 12:41 | FL ---
EXAM DATE: 07/27/2018 12:28 PM EST AGE/SEX: 68 years / Male INDICATIONS: Patient states abdominal pain and distention for two months. CLINICAL DATA: This is the patient's initial encounter. Patient reports that signs and symptoms have been present for 2 months and indicates a pain score of 5/10. MEDICAL/SURGICAL HISTORY: . Umbilical hernia x2. . Umbilical hernia repair x2. [place] [facility] [place], 07/24/2018. . FLUORO TIME: 2 IMAGE COUNT: 22 FINDINGS: Preliminary film is significant for a focal collection of air identified adjacent to the mid descendi ng colon and ill-defined air identified within the left upper quadrant. Under fluoroscopic guidance a Gastrografin enema was performed with free flow of contrast to the ceca l tip. There is abnormal extraluminal Gastrografin beginning from the mid descending colon and extend ing superiorly medially and posteriorly to the descending colon into the left upper quadrant consiste nt with a large area of abscess involving the mid descending colon where the Gastrografin appears to be contained and free flow of Gastrografin into the left upper quadrant. CONCLUSION: Significantly abnormal exam. There is extraluminal Gastrografin beginning from the mid descending col on which originally appears to be contained within this region during the course of the fluoroscopic examination, however, on post exam view with overhead film the Gastrografin is seen to extend beyond this area of confinement superiorly into the left upper quadrant where it remains ill-defined within the mesentery. Electronically signed by: Meagan Moore MD 07/27/2018 12:39 PM EST
[2018-07-27] MEDS ORDERED: Sod Chloride 0.9% Inj 1,000 ML IV.CONT SCH (16:00)
[2018-07-27] MEDS ORDERED: Diatrizoate Meglum/Diatrizoate Sod Liq 120 ML Bottle (for RAD diag) RECTAL ONE (17:16)
[2018-07-27] MEDS: Pantoprazole Sodium 20 MG DR Tablet PO SCH (17:28)
[2018-07-27] MEDS: diazePAM 5 MG Tablet PO PRN (20:41)
[2018-07-27] MEDS ORDERED: PEG 3350/E-Lyte Soln 4000 ML Bottle PO ONE (22:15)
--- NOTE | 2018-07-27 22:20 | P.PNVS ---
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 As noted in my original consultation I evaluate the patient carefully and he certainly did not appear clinically ill as most patients with Boerhaave syndrome would. Patients with Boerhaave syndrome I usually sweating, pale almost catatonic in chest pain and guarding in all 4 quadrants Those patients deteriorate very rapidly and unless surgery is performed they dying a very short period of time This gentleman appeared quite comfortable with mild abdominal pain and clearly not septic Therefore the remaining diagnoses were possible rupture of a Zenker's diverticulum or an intra-abdominal source. Esophageal swallow clearly shows clean esophagus without any lesions or leaks. On the other hand patient does have some thickening of the descending colon and proximal sigmoid as well as tracking air in the retroperitoneum therefore working diagnosis should be perforated diverticulum of the proximal sigmoid colon with tracking into the retroperitoneum and higher up into the chest Today abdomen is soft with active bowel sounds and tender in the left hemiabdomen Patient states the tenderness started last night White count is normalizing and left shift is receding Would keep on IV antibiotics will advance diet and repeat CT scan of the abdomen and pelvis on After that if patient does well he can go home on oral antibiotics follow-up with the gastroenterology for repeat colonoscopy in about a month and depending on the findings likelihood is we will schedule him for left colon/sigmoid elective resection In the face of retroperitoneal perforation dissection this is not the type of diverticulitis that should be left and only treated medically likely due for majority of diverticular disease these days 07/24/2018 Abdomen is soft active bowel sounds no rebound no guarding no masses Tender in the left midabdomen at this time Patient is greatly improved clinically and leukocytosis is resolved At this point working diagnosis is definitely sigmoid/descending colon diverticulitis with retroperitoneal perforation We will repeat CT scan of the abdomen and pelvis and see what this looks like but now with oral contrast All things equal barring any surprises clinically or diagnostically, patient can be advanced to low residue diet after the CT scan and probably discharged on oral antibiotics tomorrow We will keep on IV antibiotics for at least another day On the other hand if the CT scan reveals any surprises this may change the course of therapy and approach Addendum Patient underwent CT of abdomen and pelvis with IV and p.o. contrast which reveals reduction and near disappearance of the air in the paraesophageal area however now patient has fairly large pneumoperitoneum and air in the retroperitoneum. There is some abnormality and irregularity of the barium collection and descending colon and I still think that this is the source of patient's perforation. Nonetheless with this amount of air I believe EGD is warranted to make sure patient does not have a posterior duodenal or gastric ulcer which could cause the same Spoken Dr. Kenney about the case and spoken to Dr. Vines who will go ahead with EGD. If patient does not have a posterior penetrating or perforating ulcer which I do not think will be the case then patient will need colon resection at this admission because he is a continuous leak and I discussed this at length with the patient 07/25/2018 Patient is awake alert oriented feels well As the swelling of the bowel decreases I believe patient will pass gas and have normal bowel movements Upper endoscopy did not reveal any significant findings except some gastritis so clearly there is coming from the left colon posterior perforation Well CT scan appears to be very dramatic patient is doing well and clinically stable As always these residents with no not operating CT scans and laboratory studies but rather on patients. This patient appears to be clinically stable and considering the significance and complexity of surgery I am certainly hard pressed to operate at this time In the best case scenario patient should be allowed to cool down have repeat CAT scan if that shows more no residual free air, surgery will be mandatory In the meantime will place patient on clear liquids and see how he does 07/26/2018 Patient is awake alert and oriented Abdomen is soft active bowel sounds slightly distended Tolerating p.o. diet passing gas having bowel movements EGD revealed some gastritis but clearly no source of perforation so at this time left colon is the culprit and the working diagnosis is that of small perforated area of the left colonic diverticulosis Patient is clinically doing very well and I am hard pressed to offer him surgery at this point Will repeat CT scan of the abdomen and pelvis tomorrow and possibly do barium enema Pending on this we will decide if this is something we should address now or allow patient to call down and address electively On one hand it is hard to watch a patient have a free air in the abdomen and do nothing but on the other hand patient is clinically stable with normal white count although with left shift so it is hard to make a case to do surgery in this clinical setting Agree with Dr. Vines and medicine 07/27/2018 Patient is awake alert and oriented Today underwent Gastrografin enema exam which reveals leakage of contrast outside the lumen of the bowel probably into a large abscess cavity which would not be the worst thing but then after that it leaks in the retroperitoneum and out into the free mesenteric space Patient is now more distended and is starting to develop some guarding in the left mid abdomen Increased tenderness today Based on the clinical findings history and progress of this patient's and well as the diagnostic studies including CT scan and most recently the Gastrografin enema it is clear that the patient's conservative therapy has failed and at this point patient requires surgery I have discussed this with patient in length and all the ins and outs of the same have been discussed Patient is scheduled tomorrow for a left colon resection with primary anastomosis and possible but unlikely colostomy Patient is for most part cleaned out considering that he received p.o. contrast followed by now Gastrografin however I will give him another 2 L of GoLYTELY to completely wash him out For surgery tomorrow Objective Vital Signs / I&O: Vital Signs 07/27/18 00:00 07/27/18 04:00 07/27/18 08:00 Temperature 98.0 F 97.6 F 97.5 F L Pulse Rate 67 63 71 Respiratory Rate 18 16 20 Blood Pressure 151/72 H 138/79 180/90 H Pulse Oximetry 94 L 95 96 07/27/18 11:13 07/27/18 12:00 07/27/18 13:00 Temperature Pulse Rate 63 Respiratory Rate Blood Pressure 169/94 H Pulse Oximetry 96 93 L 07/27/18 15:36 07/27/18 16:00 07/27/18 19:32 Temperature 98.2 F 97.6 F Pulse Rate 87 93 H Respiratory Rate 20 20 Blood Pressure 178/85 H 179/98 H Pulse Oximetry 93 L 94 L 96 07/27/18 19:45 07/27/18 20:00 Temperature 98.1 F Pulse Rate 83 Respiratory Rate 20 Blood Pressure 182/89 H Pulse Oximetry 96 96 Intake & Output 07/27/18 07/27/18 07/28/18 06:59 18:59 06:59 Intake Total 1105 / 1105 1100 / 1100 Output Total 450 / 450 450 / 450 Balance 655 / 655 650 / 650 Weight 84.2 kg Intake: IV 1105 / 1105 1100 / 1100 KCl Inj 10 MEQ In 1/2 Normal 1005 / 1005 700 / 700 Saline Inj 1,000 ML @ 84 mls/hr IV.CONT .[id number] [facility] Rx#: [id number] Diflucan 200 mg Premix Bag 100 100 / 100 ML @ 100 mls/hr IV.SIG Q24H [facility] Rx#:[id number] Zosyn 4.5 GM Premix 4.5 gm In 100 / 100 300 / 300 100 ml @ 200 mls/hr IV.SIG Q6H [facility] Rx#:[id number] Oral 0 / 0 0 / 0 Output: Urine 450 / 450 450 / 450 Other: Date of Last Bowel Movement 07/24/18 # Bowel Movements 1 2 Microbiology 07/22/18 14:05 Aerobic Blood Culture - Final Blood - Peripheral No growth in 5 days Anaerobic Blood Culture - Final No growth in 5 days 07/22/18 14:10 Aerobic Blood Culture - Final Blood - Peripheral No growth in 5 days Anaerobic Blood Culture - Final No growth in 5 days Impressions Enema w/Water Soluble 07/27/18 00:00 CONCLUSION: Significantly abnormal exam. There is extraluminal Gastrografin beginning from the mid descending colon which originally appears to be contained within this region during the course of the fluoroscopic examination, however, on post exam view with overhead film the Gastrografin is seen to extend beyond this area of confinement superiorly into the left upper quadrant where it remains ill- defined within the mesentery.
[2018-07-28] MEDS: Morphine Inj 4 MG/ML Vial IV.PUSH PRN ×4 (02:02→13:32)
[2018-07-28] MEDS: Acetaminophen 325 MG Tablet PO PRN (04:04)
[2018-07-28] MEDS: Piperacil/Tazo 4.5 GM Premix 4.5 GM/100 ML BAG IV.SIG SCH ×3 (05:25→18:15)
[2018-07-28] MEDS: Sodium Chloride 0.9% 2 ML Flush BID IV.FLUSH SCH ×2 (08:19→22:10)
[2018-07-28] MEDS: Folic Acid 1 MG Tablet PO SCH (08:19)
[2018-07-28] MEDS: Hydrocortisone Sod Succinate 100 MG Vial IV.PUSH SCH ×2 (08:20→21:15)
[2018-07-28 08:43] LABS: Baso % (Auto) 0.1 % (0.0-2.0); Eos # (Auto) 0.1 th/mm3 (0.0-0.4); Eos % (Auto) 0.7 % (0.0-4.0); Hematocrit 33.2 % (39.0-51.0); Hemoglobin 11.4 gm/dL (13.0-17.0); Lymph % (Auto) 5.2 % (9.0-44.0); Mean Corpuscular HGB Conc 34.5 % (32.0-36.0); Mean Corpuscular Volume 95.8 fL (80.0-100.0); Mean Platelet Volume 7.9 fL (7.0-11.0); Mono # (Auto) 0.9 th/mm3 (0.0-0.9); Mono % (Auto) 4.7 % (0.0-8.0); Neut # (Auto) 17.5 th/mm3 (1.8-7.7); Neut % (Auto) 89.3 % (16.0-70.0); Platelet Count 295 th/mm3 (150-450); Red Blood Count 3.46 mil/mm3 (4.50-5.90); Red Cell Distribution Width 15.6 % (11.6-17.2); White Blood Count 19.6 th/mm3 (4.0-11.0)
[2018-07-28 09:02] LABS: Albumin 2.2 g/dL (3.4-5.0); Calcium 8.4 mg/dL (8.5-10.1); Carbon Dioxide 25.8 meq/L (21.0-32.0); Phosphorus 3.6 mg/dL (2.5-4.9); Potassium 3.2 meq/L (3.5-5.1)
[2018-07-28] MEDS ORDERED: Hydrocortisone Sod Succinate 100 MG Vial IV.PUSH ONE (10:45)
[2018-07-28] MEDS: Potassium Chlor 20 mEq Premix 20 MEQ/100 ML PIGGYBACK IV.SIG SCH ×2 (10:48→13:27)
--- NOTE | 2018-07-28 10:57 | P.PNIM ---
Subjective Interval history: Patient drank bowel prep overnight, reports crampy left lower quadrant abdominal pain. Denies any chest pain or shortness of breath. He does note edema just in his feet over the past several days. She does report a history of swelling in his legs when he is standing. Physical Exam Vital signs: Vital Signs 07/27/18 11:13 07/27/18 12:00 07/27/18 13:00 Temperature Pulse Rate 63 Respiratory Rate Blood Pressure 169/94 H Pulse Oximetry 96 93 L 07/27/18 15:36 07/27/18 16:00 07/27/18 19:32 Temperature 98.2 F 97.6 F Pulse Rate 87 93 H Respiratory Rate 20 20 Blood Pressure 178/85 H 179/98 H Pulse Oximetry 93 L 94 L 96 07/27/18 19:45 07/27/18 20:00 07/28/18 00:00 Temperature 98.1 F 97.9 F Pulse Rate 85 85 Respiratory Rate 20 20 Blood Pressure 182/89 H 150/78 H Pulse Oximetry 96 96 97 07/28/18 04:00 07/28/18 08:00 Temperature 97.8 F 98.0 F Pulse Rate 92 H 114 H Respiratory Rate 18 20 Blood Pressure 155/82 H 110/71 Pulse Oximetry 97 96 Intake & Output 07/27/18 07/28/18 07/28/18 18:59 06:59 18:59 Intake Total 1100 / 1100 904 / 904 Output Total 450 / 450 800 / 800 Balance 650 / 650 104 / 104 Weight 84.2 kg Intake: IV 1100 / 1100 704 / 704 KCl Inj 10 MEQ In 1/2 Normal 700 / 700 Saline Inj 1,000 ML @ 84 mls/hr IV.CONT .[id number] [facility] Rx#: [id number] NS Inj 1,000 ML @ 42 mls/hr IV. 504 / 504 CONT .[id number] [facility] Rx#:[id number] Diflucan 200 mg Premix Bag 100 100 / 100 ML @ 100 mls/hr IV.SIG Q24H [facility] Rx#:[id number] Zosyn 4.5 GM Premix 4.5 gm In 300 / 300 200 / 200 100 ml @ 200 mls/hr IV.SIG Q6H [facility] Rx#:[id number] Oral 0 / 0 200 / 200 Output: Urine 450 / 450 800 / 800 Other: Date of Last Bowel Movement 07/28/18 # Bowel Movements 2 4 Narrative: GENERAL: lying in bed. Appears comfortable. SKIN: Warm and dry. HEAD: Normocephalic. EYES: No scleral icterus. No injection or drainage. NECK: Supple, trachea midline. No JVD. CARDIOVASCULAR: Regular rate and rhythm without murmurs, gallops, or rubs. RESPIRATORY: Breath sounds equal bilaterally. No accessory muscle use. GASTROINTESTINAL: Abdomen still hyperresonant today, unchanged from yesterday. Nontender. No rebound or guarding. Exam unchanged. MUSCULOSKELETAL: No cyanosis, 1+ peripheral edema only in feet. BACK: Nontender without obvious deformity. No CVA tenderness. Results - Labs CBC & Chem 7: 07/28/18 07:08 07/28/18 07:08 Laboratory Results - last 24 hr 07/28/18 07/28/18 07/28/18 00:03 07:08 07:08 WBC 19.6 H RBC 3.46 L Hgb 11.4 L Hct 33.2 L MCV 95.8 MCH 33.0 MCHC 34.5 RDW 15.6 Plt Count 295 MPV 7.9 Neut % (Auto) 89.3 H Lymph % (Auto) 5.2 L Holt % (Auto) 4.7 Eos % (Auto) 0.7 Baso % (Auto) 0.1 Neut # (Auto) 17.5 H Lymph # (Auto) 1.0 Holt # (Auto) 0.9 Eos # (Auto) 0.1 Baso # (Auto) 0.0 WBC Differential . Differential Comment Auto diff final Sodium 144 Potassium 3.2 L Chloride 108 H Carbon Dioxide 25.8 Anion Gap 10 BUN 19 H Creatinine 1.08 Estimated GFR 68 L Random Glucose 61 L Calcium 8.4 L Phosphorus 3.6 Magnesium 2.0 Albumin 2.2 L Blood Type A Positive Blood Type Recheck Required Antibody Screen Negative MTS Gel Crossmatch See Detail Microbiology 07/22/18 14:05 Blood - Peripheral Aerobic Blood Culture - Final No growth in 5 days 07/22/18 14:05 Blood - Peripheral Anaerobic Blood Culture - Final No growth in 5 days 07/22/18 14:10 Blood - Peripheral Aerobic Blood Culture - Final No growth in 5 days 07/22/18 14:10 Blood - Peripheral Anaerobic Blood Culture - Final No growth in 5 days - Imaging Impressions Enema w/Water Soluble 07/27/18 00:00 CONCLUSION: Significantly abnormal exam. There is extraluminal Gastrografin beginning from the mid descending colon which originally appears to be contained within this region during the course of the fluoroscopic examination, however, on post exam view with overhead film the Gastrografin is seen to extend beyond this area of confinement superiorly into the left upper quadrant where it remains ill- defined within the mesentery. Assessment and Plan - Plan Mr. Moreira is a pleasant 68-year-old male with a history of hypertension, CAD who presents to the emergency department on 07/22/2018 due to 4-5-day duration of not feeling well, nausea vomiting and anorexia. ED work up shows leukocytosis with WBC 20 1.1K, CT studies finding of retropharyngeal and retroperitoneal air. Patient is being transferred to the main hospital. General surgeon Dr. Douglas is been consulted. //Acute diverticulitis //Severe Sepsis on admission -With tachycardia, leukocytosis, diverticulitis, acute kidney injury on admission -Due to intra-abdominal infection no need for blood cultures. sepsis continue. We'll treat with broad-spectrum antibiotics. Zosyn. = 07/24. Continue IV antibiotics for sepsis. Follow-up labs = Leukocytosis has resolved. Cultures negative. Continue IV antibiotics = 07/28. Leukocytosis backup. Possibly affected by recent stress dose steroids , pain after having bowel prep. Will consult infectious disease. Continue Zosyn and fluconazole. //Retropharyngeal air //intraperitoneal air General surgery consulted. Discussed with Dr. Douglas who will see patient tonight. Continue IV fluid. Continue morphine for pain. Continue Zosyn 4.5 g every 6 hours for any gram-negative and anaerobic infection = 07/23. Vascular surgery following. Appreciate assistance. Retropharyngeal air likely secondary to air tracked from diverticular perforation. Appreciate vascular surgery assistance = 07/24. Repeat CT abdomen with increase in intraperitoneal air. Management as per vascular surgery. Appreciate assistance. = 07/25. Gastroenterology following. Planning for EGD to rule out upper GI rupture. Vascular surgery following. Appreciate assistance. = 07/26. EGD yesterday negative for upper GI perforation. Vascular surgery following. Appreciate assistance. = 07/27. Gastrografin enema pending. Abdomen prior due to anxiety. = 07/28. Gastrografin enema shows leakage from large bowel. Status post bowel prep and plan for surgery today. //Suspected adrenal insufficiency. On chronic steroids. Will cont on stress dose steroids here. = Decrease steroids further. Only 25 of hydrocortisone twice daily now. May need increase if undergoes surgery. //CAD s/p CABG //Hypertension -Holding anti-coagulation due to likely need for surgical intervention. cont to hold lisinopril. Enalapril IV as needed for systolic blood pressure over 180. Continue to monitor. = Patient is off aspirin. Will start on aspirin tomorrow morning. //Exacerbation of chronic bilateral lower extremity edema. Only in feet. Likely exacerbated by IV fluids, bedrest and IV steroids. Respiratory status stable. Will check BNP. Close monitoring of fluid status. //Probable acute kidney injury Resolved. //Insomnia. Improved with Valium. //Anxiety. Treating insomnia as above Full code. SCDs. Discharge Planning: Will evaluate need for rehab versus home with home health after surgery.
[2018-07-28] MEDS ORDERED: Sodium Chloride 0.45 % Inj 1,000 ML IV.CONT SCH (11:00)
[2018-07-28] MEDS ORDERED: Sod Chloride 0.9% Inj 1,000 ML IV.SIG ONE (11:00)
[2018-07-28] MEDS ORDERED: Lidocaine PF 1% Inj 5 ML Syringe OTHER ONE (14:35)
[2018-07-28] MEDS ORDERED: Glycopyrrolate Inj 1 MG/5 ML Syringe IV.PUSH ONE (14:35)
[2018-07-28] MEDS ORDERED: Sod Chloride 0.9% Inj 2,000 ML IV.CONT ONE (14:35)
[2018-07-28] MEDS ORDERED: Phenylephrine/NS 1000 MCG/10ML Syringe IV.PUSH ONE (14:35)
[2018-07-28] MEDS ORDERED: Succinylcholine Inj 100 MG/5 ML Syringe IV.PUSH ONE (14:35)
[2018-07-28] MEDS ORDERED: Neostigmine Inj 5 MG/5 ML Syringe IV.PUSH ONE (14:35)
[2018-07-28] MEDS ORDERED: *Meperidine Inj 25 MG/ML Vial PERIprocedural Use ONLY ONE (19:07)
[2018-07-28] MEDS ORDERED: fentaNYL Citrate Inj 100 MCG/2 ML Ampul ONE (19:09)
[2018-07-28] MEDS ORDERED: Naloxone Inj 0.4 MG/ML Vial IV.PUSH PRN (19:10)
[2018-07-28] MEDS: HYDROmorphone PCA Inj 6 MG/30 ML PCA.VIAL PCA PRN (19:40)
[2018-07-28 20:10] LABS: Eos % (Auto) 0.1 % (0.0-4.0); Hematocrit 32.5 % (39.0-51.0); Hemoglobin 10.9 gm/dL (13.0-17.0); Lymph # (Auto) 0.7 th/mm3 (1.0-4.8); Lymph % (Auto) 2.7 % (9.0-44.0); Mean Corpuscular HGB Conc 33.4 % (32.0-36.0); Mean Corpuscular Volume 95.7 fL (80.0-100.0); Mean Platelet Volume 7.9 fL (7.0-11.0); Mono # (Auto) 0.8 th/mm3 (0.0-0.9); Neut # (Auto) 24.5 th/mm3 (1.8-7.7); Neut % (Auto) 94.2 % (16.0-70.0); Platelet Count 356 th/mm3 (150-450); Red Cell Distribution Width 16.1 % (11.6-17.2)
[2018-07-28 20:39] LABS: Lymphocytes 12 % (9-44); Metamyelocytes 2 % (0-1); Monocytes 2 % (0-8); Myelocytes 1 % (0-0); Platelet Estimate Normal (Normal); Platelet Morphology Normal (Normal)
[2018-07-28 20:40] LABS: Toxic Granulation 1+
[2018-07-28] MEDS: Enoxaparin Inj 30 MG/0.3 ML Syringe SQ SCH (21:14)
[2018-07-29] MEDS: Piperacil/Tazo 4.5 GM Premix 4.5 GM/100 ML BAG IV.SIG SCH ×5 (00:29→23:05)
[2018-07-29] MEDS: HYDROmorphone PCA Inj 6 MG/30 ML PCA.VIAL PCA PRN ×2 (01:15→17:56)
[2018-07-29] MEDS: Hydrocortisone Sod Succinate 100 MG Vial IV.PUSH SCH ×4 (03:22→23:05)
[2018-07-29 05:22] LABS: Baso # (Auto) 0.1 th/mm3 (0.0-0.2); Baso % (Auto) 0.2 % (0.0-2.0); Hematocrit 32.3 % (39.0-51.0); Hemoglobin 10.9 gm/dL (13.0-17.0); Lymph # (Auto) 0.6 th/mm3 (1.0-4.8); Mean Corpuscular HGB Conc 33.8 % (32.0-36.0); Mean Corpuscular Hemoglobin 32.3 pg (27.0-34.0); Mean Corpuscular Volume 95.5 fL (80.0-100.0); Mean Platelet Volume 7.9 fL (7.0-11.0); Mono # (Auto) 1.2 th/mm3 (0.0-0.9); Mono % (Auto) 3.8 % (0.0-8.0); Neut # (Auto) 29.2 th/mm3 (1.8-7.7); Platelet Count 342 th/mm3 (150-450); Red Blood Count 3.39 mil/mm3 (4.50-5.90); Red Cell Distribution Width 16.3 % (11.6-17.2); White Blood Count 31.1 th/mm3 (4.0-11.0)
[2018-07-29 05:39] LABS: Albumin 1.7 g/dL (3.4-5.0); Calcium 7.9 mg/dL (8.5-10.1); Carbon Dioxide 24.1 meq/L (21.0-32.0); Magnesium 2.1 mg/dL (1.5-2.5); Phosphorus 3.8 mg/dL (2.5-4.9); Potassium 3.6 meq/L (3.5-5.1)
[2018-07-29 05:41] LABS: Total Protein 5.4 g/dL (6.4-8.2)
[2018-07-29 09:14] LABS: Lymphocytes 2 % (9-44); Metamyelocytes 2 % (0-1); Monocytes 2 % (0-8); Myelocytes 1 % (0-0)
[2018-07-29 09:15] LABS: Platelet Estimate Normal (Normal); Platelet Morphology Normal (Normal); Toxic Granulation 1+
[2018-07-29] MEDS: Enoxaparin Inj 30 MG/0.3 ML Syringe SQ SCH ×2 (09:30→20:08)
[2018-07-29] MEDS: Sodium Chloride 0.9% 2 ML Flush BID IV.FLUSH SCH ×2 (10:03→20:07)
[2018-07-29] MEDS: Folic Acid 1 MG Tablet PO SCH (10:03)
--- NOTE | 2018-07-29 11:48 | P.PNIM ---
Subjective Interval history: Patient says he is feeling all right. Reports pain is controlled. Denies any chest pain or shortness of breath. Denies nausea or vomiting. Physical Exam Vital signs: Vital Signs 07/28/18 11:48 07/28/18 12:00 07/28/18 18:47 Temperature 98.6 F 97.6 F Pulse Rate 91 H 91 H Respiratory Rate 20 15 Blood Pressure 153/93 H 153/78 H Pulse Oximetry 96 93 L 95 07/28/18 20:00 07/28/18 20:30 07/28/18 20:33 Temperature 98 F 98.0 F Pulse Rate 86 85 85 Respiratory Rate 18 13 14 Blood Pressure 159/83 H 159/80 H 159/80 H Pulse Oximetry 98 95 88 L 07/28/18 21:00 07/28/18 21:27 07/28/18 21:30 Temperature Pulse Rate 87 89 Respiratory Rate 13 17 Blood Pressure 160/79 H 161/78 H Pulse Oximetry 100 100 100 07/28/18 21:35 07/28/18 22:00 07/28/18 22:30 Temperature Pulse Rate 94 H 90 Respiratory Rate 15 15 Blood Pressure 152/76 H 142/76 H Pulse Oximetry 96 99 98 07/28/18 23:00 07/28/18 23:02 07/29/18 00:00 Temperature 98.0 F Pulse Rate 101 H 97 H 93 H Respiratory Rate 17 9 L 19 Blood Pressure 154/109 H 130/87 143/77 H Pulse Oximetry 97 97 96 07/29/18 01:00 07/29/18 02:00 07/29/18 03:00 Temperature Pulse Rate 87 93 H 90 Respiratory Rate 10 L 16 18 Blood Pressure 156/79 H 131/76 136/77 Pulse Oximetry 95 96 98 07/29/18 04:00 07/29/18 05:00 07/29/18 06:00 Temperature 98.0 F Pulse Rate 101 H 92 H 88 Respiratory Rate 40 H 18 16 Blood Pressure 149/98 H 149/80 H 153/83 H Pulse Oximetry 96 95 96 07/29/18 06:54 Temperature Pulse Rate Respiratory Rate 20 Blood Pressure Pulse Oximetry Intake & Output 07/28/18 07/29/18 07/29/18 18:59 06:59 18:59 Intake Total 4596 / 4596 1100 / 1100 Output Total 650 / 650 1220 / 1220 Balance 3946 / 3946 -120 / -120 Weight 87 kg Intake: IV 996 / 996 1100 / 1100 LR 1000 mL Inj 1,000 ML @ 125 1000 / 1000 mls/hr IV.CONT .Q8H [facility] Rx#: [id number] NS Inj 1,000 ML @ 80 mls/hr IV. 496 / 496 CONT .[id number] [facility] Rx#:[id number] Diflucan 200 mg Premix Bag 100 100 / 100 ML @ 100 mls/hr IV.SIG Q24H [facility] Rx#:[id number] Zosyn 4.5 GM Premix 4.5 gm In 200 / 200 100 / 100 100 ml @ 200 mls/hr IV.SIG Q6H [facility] Rx#:[id number] KCl 20 mEq Premix Inj 20 meq In 200 / 200 100 ml @ 50 mls/hr IV.SIG Q2H [facility] Rx#:[id number] Oral 0 / 0 Anesthesia Amount 3600 / 3600 Output: Estimated Blood Loss 400 / 400 Urine Amount (Catheter) 250 / 250 1000 / 1000 Indwelling Urethral Catheter 250 / 250 1000 / 1000 Stool Amount (Stoma) 0 / 0 Right Lower Abdomen 0 / 0 Wound Drainage 220 / 220 # 1 100 / 100 # 2 120 / 120 Other: Date of Last Bowel Movement 07/28/18 Narrative: GENERAL: lying in bed. Appears comfortable. SKIN: Warm and dry. HEAD: Normocephalic. EYES: No scleral icterus. No injection or drainage. NECK: Supple, trachea midline. No JVD. CARDIOVASCULAR: Regular rate and rhythm without murmurs, gallops, or rubs. RESPIRATORY: Breath sounds equal bilaterally. No accessory muscle use. GASTROINTESTINAL: Postoperative abdomen with AAMIR drain left lower quadrant serosanguineous fluid, midline abdominal incision clean dry and intact. Right lower quadrant colostomy. Patient has NG tube with bilious drainage. MUSCULOSKELETAL: No cyanosis, 1+ peripheral edema only in feet. BACK: Nontender without obvious deformity. No CVA tenderness. - Urinary Catheter Management Indwelling Urethral Catheter Cath placed during this visit: yes Reason for continuing: Hourly intake/output Insertion date: 07/28/18 Results - Labs CBC & Chem 7: 07/29/18 05:00 07/29/18 05:00 Laboratory Results - last 24 hr 07/28/18 07/28/1818 07:08 19:18 20:48 WBC 26.0 H RBC 3.40 L Hgb 10.9 L Hct 32.5 L MCV 95.7 MCH 32.0 MCHC 33.4 RDW 16.1 Plt Count 356 MPV 7.9 Prelim Diff (Auto) Slide review pending Neut % (Auto) 94.2 H Lymph % (Auto) 2.[address] [place] % (Auto) 3.0 Eos % (Auto) 0.1 Baso % (Auto) 0.0 Neut # (Auto) 24.5 H Lymph # (Auto) 0.[address] [place] # (Auto) 0.8 Eos # (Auto) 0.0 Baso # (Auto) 0.0 WBC Differential Manual diff final Seg Neuts % (Manual) 73 H Band Neuts % (Manual) 10 H Lymphocytes % (Manual) 12 Monocytes % (Manual) 2 Metamyelocytes % (Man) 2 H Myelocytes % (Man) 1 H Abs Neuts (Manual) 22.4 H Differential Comment . Toxic Granulation 1+ H Platelet Estimate Normal Platelet Morphology Normal Sodium Potassium Chloride Carbon Dioxide Anion Gap BUN Creatinine Estimated GFR Random Glucose Calcium Phosphorus Magnesium Total Bilirubin Direct Bilirubin Indirect Bilirubin AST ALT Alkaline Phosphatase B-Natriuretic Peptide 247 H Total Protein Albumin Nasal Screen MRSA (PCR) Not detected 07/29/18 07/29/18 05:00 05:00 WBC 31.1 H RBC 3.39 L Hgb 10.9 L Hct 32.3 L MCV 95.5 MCH 32.3 MCHC 33.8 RDW 16.3 Plt Count 342 MPV 7.9 Prelim Diff (Auto) Slide review pending Neut % (Auto) 94.0 H Lymph % (Auto) 2.[address] [place] % (Auto) 3.8 Eos % (Auto) 0.0 Baso % (Auto) 0.2 Neut # (Auto) 29.2 H Lymph # (Auto) 0.[address] [place] # (Auto) 1.2 H Eos # (Auto) 0.0 Baso # (Auto) 0.1 WBC Differential Manual diff final Seg Neuts % (Manual) 93 H Band Neuts % (Manual) Lymphocytes % (Manual) 2 L Monocytes % (Manual) 2 Metamyelocytes % (Man) 2 H Myelocytes % (Man) 1 H Abs Neuts (Manual) 29.9 H Differential Comment . Toxic Granulation 1+ H Platelet Estimate Normal Platelet Morphology Normal Sodium 144 Potassium 3.6 Chloride 108 H Carbon Dioxide 24.1 Anion Gap 12 BUN 21 H Creatinine 0.99 Estimated GFR 75 L Random Glucose 132 H Calcium 7.9 L Phosphorus 3.8 Magnesium 2.1 Total Bilirubin 0.5 Direct Bilirubin 0.2 Indirect Bilirubin 0.3 AST 47 H ALT 50 Alkaline Phosphatase 60 B-Natriuretic Peptide Total Protein 5.4 L D Albumin 1.7 L Nasal Screen MRSA (PCR) Microbiology 07/28/18 15:42 Wound - Other Gram Stain - Final 07/28/18 15:57 Wound - Other Gram Stain - Final 07/28/18 15:57 Other Fungal Smear - Final 07/28/18 15:42 Other Fungal Smear - Final Assessment and Plan - Plan Mr. Moreira is a pleasant 68-year-old male with a history of hypertension, CAD who presents to the emergency department on 07/22/2018 due to 4-5-day duration of not feeling well, nausea vomiting and anorexia. ED work up shows leukocytosis with WBC 20 1.1K, CT studies finding of retropharyngeal and retroperitoneal air. Patient is being transferred to the main hospital. General surgeon Dr. Douglas is been consulted. //Acute diverticulitis //Severe Sepsis on admission -With tachycardia, leukocytosis, diverticulitis, acute kidney injury on admission -Due to intra-abdominal infection no need for blood cultures. sepsis continue. We'll treat with broad-spectrum antibiotics. Zosyn. = 07/24. Continue IV antibiotics for sepsis. Follow-up labs = Leukocytosis has resolved. Cultures negative. Continue IV antibiotics = 07/28. Leukocytosis backup. Possibly affected by recent stress dose steroids , pain after having bowel prep. Will consult infectious disease. Continue Zosyn and fluconazole. = 07/29. ID following. Appreciate assistance. Continue broad-spectrum antibiotics, antifungals. //Retropharyngeal air //intraperitoneal air General surgery consulted. Discussed with Dr. Douglas who will see patient tonight. Continue IV fluid. Continue morphine for pain. Continue Zosyn 4.5 g every 6 hours for any gram-negative and anaerobic infection = 07/23. Vascular surgery following. Appreciate assistance. Retropharyngeal air likely secondary to air tracked from diverticular perforation. Appreciate vascular surgery assistance = 07/24. Repeat CT abdomen with increase in intraperitoneal air. Management as per vascular surgery. Appreciate assistance. = 07/25. Gastroenterology following. Planning for EGD to rule out upper GI rupture. Vascular surgery following. Appreciate assistance. = 07/26. EGD yesterday negative for upper GI perforation. Vascular surgery following. Appreciate assistance. = 07/27. Gastrografin enema pending. Abdomen prior due to anxiety. = 07/28. Gastrografin enema shows leakage from large bowel. Status post bowel prep and plan for surgery today. = 07/29. Postoperative partial colectomy with colostomy. Appreciate surgical assistance. Continue to monitor. //Suspected adrenal insufficiency. On chronic steroids. Will cont on stress dose steroids here. = Decrease steroids further. Only 25 of hydrocortisone twice daily now. May need increase if undergoes surgery. //CAD s/p CABG //Hypertension -Holding anti-coagulation due to likely need for surgical intervention. cont to hold lisinopril. Enalapril IV as needed for systolic blood pressure over 180. Continue to monitor. = 10-year aspirin given history of CAD. //Exacerbation of chronic bilateral lower extremity edema. Only in feet. Likely exacerbated by IV fluids, bedrest and IV steroids. Respiratory status stable. Will check BNP. Close monitoring of fluid status. //Probable acute kidney injury Resolved. //Insomnia. Improved with Valium. //Anxiety. Treating insomnia as above Full code. SCDs. Discharge Planning: rehab versus home with home health. We will need ID and vascular surgery clearance.
[2018-07-29] MEDS: Vancomycin Inj 1,000 MG in Sodium Chlor 0.9% Inj 250 ML IV.SIG SCH ×2 (12:31→21:10)
--- NOTE | 2018-07-29 12:34 | P.PNVS ---
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 As noted in my original consultation I evaluate the patient carefully and he certainly did not appear clinically ill as most patients with Boerhaave syndrome would. Patients with Boerhaave syndrome I usually sweating, pale almost catatonic in chest pain and guarding in all 4 quadrants Those patients deteriorate very rapidly and unless surgery is performed they dying a very short period of time This gentleman appeared quite comfortable with mild abdominal pain and clearly not septic Therefore the remaining diagnoses were possible rupture of a Zenker's diverticulum or an intra-abdominal source. Esophageal swallow clearly shows clean esophagus without any lesions or leaks. On the other hand patient does have some thickening of the descending colon and proximal sigmoid as well as tracking air in the retroperitoneum therefore working diagnosis should be perforated diverticulum of the proximal sigmoid colon with tracking into the retroperitoneum and higher up into the chest Today abdomen is soft with active bowel sounds and tender in the left hemiabdomen Patient states the tenderness started last night White count is normalizing and left shift is receding Would keep on IV antibiotics will advance diet and repeat CT scan of the abdomen and pelvis on After that if patient does well he can go home on oral antibiotics follow-up with the gastroenterology for repeat colonoscopy in about a month and depending on the findings likelihood is we will schedule him for left colon/sigmoid elective resection In the face of retroperitoneal perforation dissection this is not the type of diverticulitis that should be left and only treated medically likely due for majority of diverticular disease these days 07/24/2018 Abdomen is soft active bowel sounds no rebound no guarding no masses Tender in the left midabdomen at this time Patient is greatly improved clinically and leukocytosis is resolved At this point working diagnosis is definitely sigmoid/descending colon diverticulitis with retroperitoneal perforation We will repeat CT scan of the abdomen and pelvis and see what this looks like but now with oral contrast All things equal barring any surprises clinically or diagnostically, patient can be advanced to low residue diet after the CT scan and probably discharged on oral antibiotics tomorrow We will keep on IV antibiotics for at least another day On the other hand if the CT scan reveals any surprises this may change the course of therapy and approach Addendum Patient underwent CT of abdomen and pelvis with IV and p.o. contrast which reveals reduction and near disappearance of the air in the paraesophageal area however now patient has fairly large pneumoperitoneum and air in the retroperitoneum. There is some abnormality and irregularity of the barium collection and descending colon and I still think that this is the source of patient's perforation. Nonetheless with this amount of air I believe EGD is warranted to make sure patient does not have a posterior duodenal or gastric ulcer which could cause the same Spoken Dr. Kenney about the case and spoken to Dr. Vines who will go ahead with EGD. If patient does not have a posterior penetrating or perforating ulcer which I do not think will be the case then patient will need colon resection at this admission because he is a continuous leak and I discussed this at length with the patient 07/25/2018 Patient is awake alert oriented feels well As the swelling of the bowel decreases I believe patient will pass gas and have normal bowel movements Upper endoscopy did not reveal any significant findings except some gastritis so clearly there is coming from the left colon posterior perforation Well CT scan appears to be very dramatic patient is doing well and clinically stable As always these residents with no not operating CT scans and laboratory studies but rather on patients. This patient appears to be clinically stable and considering the significance and complexity of surgery I am certainly hard pressed to operate at this time In the best case scenario patient should be allowed to cool down have repeat CAT scan if that shows more no residual free air, surgery will be mandatory In the meantime will place patient on clear liquids and see how he does 07/26/2018 Patient is awake alert and oriented Abdomen is soft active bowel sounds slightly distended Tolerating p.o. diet passing gas having bowel movements EGD revealed some gastritis but clearly no source of perforation so at this time left colon is the culprit and the working diagnosis is that of small perforated area of the left colonic diverticulosis Patient is clinically doing very well and I am hard pressed to offer him surgery at this point Will repeat CT scan of the abdomen and pelvis tomorrow and possibly do barium enema Pending on this we will decide if this is something we should address now or allow patient to call down and address electively On one hand it is hard to watch a patient have a free air in the abdomen and do nothing but on the other hand patient is clinically stable with normal white count although with left shift so it is hard to make a case to do surgery in this clinical setting Agree with Dr. Vines and medicine 07/27/2018 Patient is awake alert and oriented Today underwent Gastrografin enema exam which reveals leakage of contrast outside the lumen of the bowel probably into a large abscess cavity which would not be the worst thing but then after that it leaks in the retroperitoneum and out into the free mesenteric space Patient is now more distended and is starting to develop some guarding in the left mid abdomen Increased tenderness today Based on the clinical findings history and progress of this patient's and well as the diagnostic studies including CT scan and most recently the Gastrografin enema it is clear that the patient's conservative therapy has failed and at this point patient requires surgery I have discussed this with patient in length and all the ins and outs of the same have been discussed Patient is scheduled tomorrow for a left colon resection with primary anastomosis and possible but unlikely colostomy Patient is for most part cleaned out considering that he received p.o. contrast followed by now Gastrografin however I will give him another 2 L of GoLYTELY to completely wash him out For surgery tomorrow 07/29/2018 Patient is status post left extended colectomy sigmoid resection with a low anterior anastomosis and protective diverting ileostomy for perforated diverticulitis with a large diverticular abscess with an intra-abdominal leak Postoperatively patient is doing well Abdomen is soft with few bowel sounds Incision is clean and dry AAMIR drain is serosanguineous from the pelvic and left paracolic drain Plan Out of bed with binder Decrease IV fluid rate Keep [place] considering low anterior anastomosis and probable inability to urinate for the next few days on his own Patient is to remain n.p.o. except for ice chips few meds and the NG tube is to remain in place We will keep patient for another day in the ICU and then transferred to floor Patient is to remain on IV antibiotics including vancomycin and Zosyn and Diflucan and ID consult is pending Objective Vital Signs / I&O: Vital Signs 07/28/18 18:47 07/28/18 20:00 07/28/18 20:30 Temperature 97.6 F 98 F 98.0 F Pulse Rate 91 H 86 85 Respiratory Rate 15 18 13 Blood Pressure 153/78 H 159/83 H 159/80 H Pulse Oximetry 95 98 95 07/28/18 20:33 07/28/18 21:00 07/28/18 21:27 Temperature Pulse Rate 85 87 Respiratory Rate 14 13 Blood Pressure 159/80 H 160/79 H Pulse Oximetry 88 L 100 100 07/28/18 21:30 07/28/18 21:35 07/28/18 22:00 Temperature Pulse Rate 89 94 H Respiratory Rate 17 15 Blood Pressure 161/78 H 152/76 H Pulse Oximetry 100 96 99 07/28/18 22:30 07/28/18 23:00 07/28/18 23:02 Temperature Pulse Rate 90 101 H 97 H Respiratory Rate 15 17 9 L Blood Pressure 142/76 H 154/109 H 130/87 Pulse Oximetry 98 97 97 07/29/18 00:00 07/29/18 01:00 07/29/18 02:00 Temperature 98.0 F Pulse Rate 93 H 87 93 H Respiratory Rate 19 10 L 16 Blood Pressure 143/77 H 156/79 H 131/76 Pulse Oximetry 96 95 96 07/29/18 03:00 07/29/18 04:00 07/29/18 05:00 Temperature 98.0 F Pulse Rate 90 101 H 92 H Respiratory Rate 18 40 H 18 Blood Pressure 136/77 149/98 H 149/80 H Pulse Oximetry 98 96 95 07/29/18 06:00 07/29/18 06:54 Temperature Pulse Rate 88 Respiratory Rate 16 20 Blood Pressure 153/83 H Pulse Oximetry 96 Intake & Output 07/28/18 07/29/18 07/29/18 18:59 06:59 18:59 Intake Total 4596 / 4596 1100 / 1100 Output Total 650 / 650 1220 / 1220 Balance 3946 / 3946 -120 / -120 Weight 87 kg Intake: IV 996 / 996 1100 / 1100 LR 1000 mL Inj 1,000 ML @ 125 1000 / 1000 mls/hr IV.CONT .Q8H [facility] Rx#: [id number] NS Inj 1,000 ML @ 80 mls/hr IV. 496 / 496 CONT .[id number] [facility] Rx#:[id number] Diflucan 200 mg Premix Bag 100 100 / 100 ML @ 100 mls/hr IV.SIG Q24H [facility] Rx#:[id number] Zosyn 4.5 GM Premix 4.5 gm In 200 / 200 100 / 100 100 ml @ 200 mls/hr IV.SIG Q6H [facility] Rx#:[id number] KCl 20 mEq Premix Inj 20 meq In 200 / 200 100 ml @ 50 mls/hr IV.SIG Q2H [facility] Rx#:[id number] Oral 0 / 0 Anesthesia Amount 3600 / 3600 Output: Estimated Blood Loss 400 / 400 Urine Amount (Catheter) 250 / 250 1000 / 1000 Indwelling Urethral Catheter 250 / 250 1000 / 1000 Stool Amount (Stoma) 0 / 0 Right Lower Abdomen 0 / 0 Wound Drainage 220 / 220 # 1 100 / 100 # 2 120 / 120 Other: Date of Last Bowel Movement 07/28/18 Laboratory Results - last 24 hr 07/28/18 07/28/18 07/29/18 19:18 20:48 05:00 WBC 26.0 H 31.1 H RBC 3.40 L 3.39 L Hgb 10.9 L 10.9 L Hct 32.5 L 32.3 L MCV 95.7 95.5 MCH 32.0 32.3 MCHC 33.4 33.8 RDW 16.1 16.3 Plt Count 356 342 MPV 7.9 7.9 Prelim Diff (Auto) Slide review pending Slide review pending Neut % (Auto) 94.2 H 94.0 H Lymph % (Auto) 2.7 L 2.0 L [place] % (Auto) 3.0 3.8 Eos % (Auto) 0.1 0.0 Baso % (Auto) 0.0 0.2 Neut # (Auto) 24.5 H 29.2 H Lymph # (Auto) 0.7 L 0.6 L [place] # (Auto) 0.8 1.2 H Eos # (Auto) 0.0 0.0 Baso # (Auto) 0.0 0.1 WBC Differential Manual diff final Manual diff final Seg Neuts % (Manual) 73 H 93 H Band Neuts % (Manual) 10 H Lymphocytes % (Manual) 12 2 L Monocytes % (Manual) 2 2 Metamyelocytes % (Man) 2 H 2 H Myelocytes % (Man) 1 H 1 H Abs Neuts (Manual) 22.4 H 29.9 H Differential Comment . . Toxic Granulation 1+ H 1+ H Platelet Estimate Normal Normal Platelet Morphology Normal Normal Sodium Potassium Chloride Carbon Dioxide Anion Gap BUN Creatinine Estimated GFR Random Glucose Calcium Phosphorus Magnesium Total Bilirubin Direct Bilirubin Indirect Bilirubin AST ALT Alkaline Phosphatase Total Protein Albumin Nasal Screen MRSA (PCR) Not detected 11/19/18 05:00 WBC RBC Hgb Hct MCV MCH MCHC RDW Plt Count MPV Prelim Diff (Auto) Neut % (Auto) Lymph % (Auto) [place] % (Auto) Eos % (Auto) Baso % (Auto) Neut # (Auto) Lymph # (Auto) [place] # (Auto) Eos # (Auto) Baso # (Auto) WBC Differential Seg Neuts % (Manual) Band Neuts % (Manual) Lymphocytes % (Manual) Monocytes % (Manual) Metamyelocytes % (Man) Myelocytes % (Man) Abs Neuts (Manual) Differential Comment Toxic Granulation Platelet Estimate Platelet Morphology Sodium 144 Potassium 3.6 Chloride 108 H Carbon Dioxide 24.1 Anion Gap 12 BUN 21 H Creatinine 0.99 Estimated GFR 75 L Random Glucose 132 H Calcium 7.9 L Phosphorus 3.8 Magnesium 2.1 Total Bilirubin 0.5 Direct Bilirubin 0.2 Indirect Bilirubin 0.3 AST 47 H ALT 50 Alkaline Phosphatase 60 Total Protein 5.4 L D Albumin 1.7 L Nasal Screen MRSA (PCR) Microbiology 07/28/18 15:42 Gram Stain - Final Wound - Other 07/28/18 15:57 Gram Stain - Final Wound - Other 07/28/18 15:57 Fungal Smear - Final Other 07/28/18 15:42 Fungal Smear - Final Other Impressions Enema w/Water Soluble 07/27/18 00:00 CONCLUSION: Significantly abnormal exam. There is extraluminal Gastrografin beginning from the mid descending colon which originally appears to be contained within this region during the course of the fluoroscopic examination, however, on post exam view with overhead film the Gastrografin is seen to extend beyond this area of confinement superiorly into the left upper quadrant where it remains ill- defined within the mesentery.
--- NOTE | 2018-07-29 13:54 | MP ---
cc: Anahy Gilbert MD DATE OF OPERATION: 07/28/2018 PREOPERATIVE DIAGNOSES: Left colon perforation with a retroperitoneal abscess and leak into the abdominal cavity. POSTOPERATIVE DIAGNOSES: Left colon perforation with a retroperitoneal abscess and leak into the abdominal cavity. OPERATIVE PROCEDURE: Extended left colectomy, takedown of splenic flexure, sigmoid resection and low anterior anastomosis, diverting ileostomy. SURGEON: Anahy Gilbert MD ANESTHESIA: General. ESTIMATED BLOOD LOSS: 400 mL. INDICATIONS FOR PROCEDURE: This 68-year-old gentleman presented with pneumoperitoneum, but very few clinical signs. He was noted to have perforation of the left colon that tracks in the retroperitoneum and even into the chest. This decreased over the next day or two. The patient then had a full workup including Gastrografin enema, which shows pooling in the abscess and then leak into the abdominal cavity. Hence, the surgery. DESCRIPTION OF PROCEDURE: The patient was prepped and draped in usual fashion in [facility]. A mid abdominal incision made. Abdomen entered. The patient has pneumoperitoneum at the time of surgery. Bookwalter retractors were placed. The entire inflammatory process is located in the left upper quadrant. Abdomen is explored in quadrants. The cecum appears to be fine. Ascending and transverse colon are intact until about splenic flexure. Splenic flexure is massively inflamed and the inflammation extends alongside the left pericolic gutter and left colon, which is soaked into the sigmoid colon. This is swollen, watery with red streaking. The small bowel was run from ligament of Treitz to ileocecal valve and appears to be normal. Liver and spleen are normal. The kidneys are fine. Stomach is decompressed. Pancreas is palpated through the stomach and appears to be fine. Procedures were started by retracting the colon medially and incising the white line of Toldt sharply with a right angle and cautery. This was carried up toward splenic flexure and down all the way to the rectosigmoid colon, which is reflected medially. The sigmoid colon also is full of diverticula and swollen and decision was made to remove this as well. Incision was now carried up and then the splenic flexure is taken down by carefully teasing the bowel and then freeing it up with finger dissection and a right angle. This mobilizes the large bowel. As soon as the large bowel was mobilized, large abscess in the retroperitoneum drains. This was cultured for aerobes and anaerobes and then abdomen washed out with about 3 liters of saline. There was some grungy necrotic material back there, but other than that, everything at this point is drained. Proximal site of transection of the colon was chosen by gauging what was going to fit in the pelvis and how we can mobilize it down. So the site was chosen left of the middle colic artery. The site is marked. The distal site of transection was chosen and an [place] Contour is fired across and this is divided. Sigmoid and mesocolon are serially clamped with Jennifer clamps, divided, and ligated with 0 Vicryl stick ties and 2-0 Vicryl silks. This was carried up to the point of transection of the colon at the transverse level. Prior to doing this, a 32 mm EEA stapler was chosen and the anvil is placed into the intestine by making a small incision in the bowel that is going to be removed just distal to the point of transection and then putting this anvil in. After that, the bowel was stapled off with a KEVIN stapler and the whole specimen removed. The anvil was now pushed out through the tibia libera, hereby avoiding using a pursestring instrument. Omentum is now dissected in an avascular plane away from the colon and then colon was easily brought down into the pelvis without tension. I now went to the perineal space and first, the anus was dilated serially with dilators and then EEA is passed up and passed out through the anterior tenia. Anvil was connected and then a nice circular EEA anastomosis was fired. The bowel is somewhat swollen distally, but adequate for the anastomosis. The anastomosis is now secured with an additional layer of running 3-0 Prolene and 3-0 silk pop-off stitches and the integrity of the anastomosis was now checked by insufflating with the rigid sigmoidoscope. The bowel inflates and the pelvis was filled with fluid. There is no leak. The bowel was now tacked down to the retroperitoneum to prevent herniation of the small bowel underneath the mesentery of the transverse colon that was brought down in the pelvis. Once more, the abdomen was explored in quadrants and then in the face of complex surgery, previous inflammation and infection, I decided on one hand as above noted to put the bowel back together, but on the other hand, I decided that it would be safer to place a diverting loop ileostomy. Therefore, a small incision was made in the left lower quadrant and through this one, the terminal ileum about 5 inches from the ligament of Treitz was brought from the ileocecal valve is brought up as a loop and held here in place until maturation later on. The abdomen was now irrigated with about 5 liters of saline. Everything is cleaned up. Meticulous hemostasis obtained. The NG tube position checked and then 2 AAMIR drains placed, one in the left pericolic gutter and another one in the pelvis. Abdomen was closed with #1 PDS loop and javier and then the incision covered with towels. Now, the ileostomy was matured with some 3-0 Monocryl and a bag applied. The patient tolerated the procedure well and was taken to the operative room in stable condition. MD JOLLY Morton/rickey , 12:43 PM , 12:58 PM
[2018-07-29] MEDS ORDERED: Pantoprazole Inj 80 MG in Sodium Chlor 0.9% Inj 35 ML IV.SIG ONE (14:00)
--- NOTE | 2018-07-29 15:09 | MB ---
cc: Alvarez Oro MD DATE: 07/29/2018 REQUESTING PHYSICIAN: Dino Saldivar MD REASON FOR CONSULTATION: Leukocytosis. HISTORY OF PRESENT ILLNESS: This is a 68-year-old white male who has just undergone abdominal surgery. The patient was admitted with abdominal cramping in addition to pulmonary symptoms. He was found to have a significantly abnormal exam on Gastrografin evaluation and it showed extraluminal Gastrografin from the mid descending colon and it was seen extending beyond this area into the upper left quadrant. The patient was taken to surgery yesterday. He underwent left extended colectomy, sigmoid resection with anastomosis and a diverting ileostomy for perforated diverticulitis and was also noted to have a large diverticular abscess with intraabdominal leak. The patient has 2 AAMIR drainage catheters in the abdomen. He is currently sitting up in a chair and he is awake and alert. He has an NG tube in place. His white blood cell count is markedly elevated. The white count was 19.6 on 07/28/2018 and it has increased to 31.1 today. Cultures were taken and the results of the cultures are pending. This consultation was requested because of leukocytosis. Blood culture on admission was negative. This consultation was requested because of the leukocytosis. PAST MEDICAL HISTORY: Hypertension, coronary artery disease, kidney stones, rheumatoid arthritis, history of hernia repair, history of shoulder surgery, history of bilateral knee surgery, coronary artery bypass graft surgery. ALLERGIES: NO KNOWN DRUG ALLERGIES. MEDICATIONS: 1. Fluconazole. 2. Piperacillin/tazobactam 3. Vancomycin. 4. Pravachol. 5. Protonix. 6. Morphine sulfate. 7. Folic acid. 8. Lovenox. 9. Solu-Cortef. 10. Valium 11. Ecotrin. 12. Xanax. SOCIAL HISTORY: No tobacco use. The patient quit using tobacco 20 years ago. Occasional alcohol. No illicit drugs. FAMILY HISTORY: Noncontributory. REVIEW OF SYSTEMS: All systems have been reviewed and are negative, except for pain in the abdomen. PHYSICAL EXAMINATION: GENERAL: This is well-developed male who is in no acute distress. He is awake and alert and oriented. VITAL SIGNS: Temperature 98.0, BP 153/83, respirations 20, heart rate 88. HEENT: The head is atraumatic. Extraocular movements grossly intact. Pupils reactive to light. No icterus. Oropharynx with slightly dry mucosa. No lesions. NECK: Supple, no adenopathy. LUNGS: Clear breath sounds bilaterally. HEART: Regular S1, S2, without murmurs, rubs or gallops. ABDOMEN: Decreased bowel sounds, soft. Two AAMIR catheters exit the mid abdomen and has serosanguineous drainage. No visible erythema. RECTAL: Not performed. EXTREMITIES: No clubbing, cyanosis or edema. SKIN: No diffuse rash. NEUROLOGIC: No gross focal findings. PSYCHIATRIC: The patient is calm and cooperative. LABORATORY DATA: WBC 31.1, 94% neutrophils, hemoglobin 10.9. Creatinine 0.99, BUN 21, sodium 144. IMPRESSION: 1. Intra-abdominal infection secondary to perforated diverticulitis. 2. The patient is status post surgery with colectomy and sigmoid resection being performed on 07/28/2008. The patient noted to have intra-abdominal leak from large diverticular abscess. 3. Leukocytosis secondary to infection. RECOMMENDATIONS: 1. Continue vancomycin. 2. Continue piperacillin/tazobactam. 3. Continue Diflucan. 4. Monitor wound culture for antibiotic adjustment. 5. Monitor white blood cell count. 6. Monitor clinical status. Thank you for this consultation. The patient's progress will be followed and further recommendations will be given upon followup. MD SANJUANA Alva/rickey , 12:49 PM , 01:03 PM [facility]ENTERAmy
[2018-07-29] MEDS: diazePAM 5 MG Tablet PO PRN (19:49)
[2018-07-29] MEDS: Pantoprazole Inj 40 MG Vial IV.PUSH SCH (20:07)
[2018-07-30] MEDS: Piperacil/Tazo 4.5 GM Premix 4.5 GM/100 ML BAG IV.SIG SCH ×4 (05:37→23:58)
[2018-07-30 06:13] LABS: Baso % (Auto) 0.1 % (0.0-2.0); Eos % (Auto) 0.1 % (0.0-4.0); Hematocrit 26.7 % (39.0-51.0); Hemoglobin 8.8 gm/dL (13.0-17.0); Lymph # (Auto) 0.5 th/mm3 (1.0-4.8); Lymph % (Auto) 2.3 % (9.0-44.0); Mean Corpuscular HGB Conc 33.1 % (32.0-36.0); Mean Corpuscular Volume 96.6 fL (80.0-100.0); Mean Platelet Volume 7.9 fL (7.0-11.0); Mono % (Auto) 4.5 % (0.0-8.0); Platelet Count 319 th/mm3 (150-450); Red Blood Count 2.76 mil/mm3 (4.50-5.90); White Blood Count 22.6 th/mm3 (4.0-11.0)
[2018-07-30 06:33] LABS: Albumin 1.6 g/dL (3.4-5.0); Calcium 8.2 mg/dL (8.5-10.1); Carbon Dioxide 26.8 meq/L (21.0-32.0); Magnesium 2.3 mg/dL (1.5-2.5); Phosphorus 2.3 mg/dL (2.5-4.9); Potassium 3.4 meq/L (3.5-5.1); Total Protein 5.4 g/dL (6.4-8.2)
[2018-07-30] MEDS ORDERED: Potassium Phosphate Inj 15 MMOL in Sodium Chlor 0.9% Inj 150 ML IV.SIG ONE (08:30)
[2018-07-30] MEDS: hydrALAZINE 50 MG Tablet PO SCH ×3 (08:36→17:40)
[2018-07-30] MEDS: Folic Acid 1 MG Tablet PO SCH (08:36)
[2018-07-30] MEDS: Enoxaparin Inj 30 MG/0.3 ML Syringe SQ SCH ×2 (08:37→20:08)
[2018-07-30] MEDS: Pantoprazole Inj 40 MG Vial IV.PUSH SCH ×2 (08:37→20:08)
[2018-07-30] MEDS: Lisinopril 20 MG Tablet PO SCH (08:37)
[2018-07-30] MEDS: Hydrocortisone Sod Succinate 100 MG Vial IV.PUSH SCH ×3 (08:37→23:54)
[2018-07-30] MEDS: Sodium Chloride 0.9% 2 ML Flush BID IV.FLUSH SCH ×2 (08:37→20:09)
[2018-07-30] MEDS: HYDROmorphone PCA Inj 6 MG/30 ML PCA.VIAL PCA PRN ×2 (08:38→18:23)
[2018-07-30] MEDS: Vancomycin Inj 1,000 MG in Sodium Chlor 0.9% Inj 250 ML IV.SIG SCH ×2 (09:03→21:01)
--- NOTE | 2018-07-30 15:30 | P.DCO ---
- Diagnosis (1) Diverticulitis of colon with perforation Status: Acute (2) Sepsis Status: Acute - Physical Therapy Order: Evaluate and treat - Home Health Nursing Order: Wound care and dressing changes Instructions: right lower quadrant colostomy. midline abdominal incision. Wound care as per surgery recommendations. - Case Management Consult Case Management Consult-Home Health: Yes - Certification I have seen patient Zach Moreira on 07/30/18. My clinical findings support the need for the requested home health care services because: Limited ability to care for self I certify that my clinical findings support that this patient is homebound because: Unsteady gait/balance (1) Diverticulitis of colon with perforation Qualifiers: Diverticulitis bleeding: unspecified bleeding status Qualified Code(s): K57.20 - Diverticulitis of large intestine with perforation and abscess without bleeding (2) Sepsis Qualifiers: Sepsis type: sepsis due to unspecified organism Qualified Code(s): A41.9 - Sepsis, unspecified organism
--- NOTE | 2018-07-30 15:35 | P.PNIM ---
Subjective Interval history: Patient says he is feeling okay. Denies any chest pain or shortness of breath. Would like to have some p.o. intake. Reports pain is controlled. Physical Exam Vital signs: Vital Signs 07/29/18 16:00 07/29/18 16:03 07/29/18 17:00 Temperature 98.8 F Pulse Rate 83 91 H Respiratory Rate 23 17 Blood Pressure 172/83 H 176/89 H 157/76 H Pulse Oximetry 95 95 07/29/18 18:00 07/29/18 19:00 07/29/18 19:48 Temperature Pulse Rate 88 86 Respiratory Rate 35 H 22 Blood Pressure 186/89 H 171/80 H Pulse Oximetry 95 95 95 07/29/18 20:00 07/29/18 20:06 07/29/18 20:08 Temperature 99.3 F Pulse Rate 79 87 Respiratory Rate 25 H 22 16 Blood Pressure 192/95 H Pulse Oximetry 95 95 07/29/18 21:00 07/29/18 22:00 07/29/18 23:00 Temperature Pulse Rate 83 79 88 Respiratory Rate 17 14 25 H Blood Pressure 168/81 H 177/84 H 194/95 H Pulse Oximetry 96 97 95 07/30/18 00:00 07/30/18 00:25 07/30/18 01:00 Temperature 98.5 F Pulse Rate 80 83 Respiratory Rate 25 H 24 22 Blood Pressure 170/78 H 171/77 H Pulse Oximetry 95 95 07/30/18 02:00 07/30/18 03:00 07/30/18 03:04 Temperature Pulse Rate 74 74 75 Respiratory Rate 17 19 17 Blood Pressure 159/77 H 178/84 H Pulse Oximetry 92 L 95 95 07/30/18 04:00 07/30/18 05:00 07/30/18 06:00 Temperature 98.5 F Pulse Rate 71 79 83 Respiratory Rate 18 30 H 27 H Blood Pressure 167/85 H 168/81 H 180/83 H Pulse Oximetry 95 95 95 07/30/18 07:00 07/30/18 07:56 07/30/18 08:00 Temperature 99.1 F Pulse Rate 81 80 Respiratory Rate 20 16 Blood Pressure 168/81 H 168/85 H Pulse Oximetry 95 97 96 07/30/18 09:00 07/30/18 10:00 11/20/18 11:00 Temperature Pulse Rate 81 100 H 89 Respiratory Rate 28 H 17 16 Blood Pressure 174/86 H 139/77 132/76 Pulse Oximetry 97 97 98 07/30/18 12:00 Temperature 98.0 F Pulse Rate 88 Respiratory Rate 31 H Blood Pressure 135/74 Pulse Oximetry 99 Intake & Output 07/29/18 07/30/18 07/30/18 18:59 06:59 18:59 Intake Total 1665 / 1665 1650 / 1650 Output Total 900 / 900 1425 / 1425 Balance 765 / 765 225 / 225 Weight 87 kg Intake: IV 1485 / 1485 1650 / 1650 LR 1000 mL Inj 1,000 ML @ 75 1000 / 1000 1000 / 1000 mls/hr IV.CONT .[id number] DEMETRIUS Rx# :[id number] Diflucan 200 mg Premix Bag 100 100 / 100 ML @ 100 mls/hr IV.SIG Q24H DEMETRIUS Rx#:[id number] Zosyn 4.5 GM Premix 4.5 gm In 200 / 200 300 / 300 100 ml @ 200 mls/hr IV.SIG Q6H DEMETRIUS Rx#:[id number] Vancomycin Inj 1,000 MG In NS 250 / 250 250 / 250 Inj 250 ML @ 250 mls/hr IV.SIG Q12H DEMETRIUS Rx#:[id number] Oral 180 / 180 Output: Urine Amount (Catheter) 600 / 600 700 / 700 Indwelling Urethral Catheter 600 / 600 700 / 700 Stool Amount (Stoma) 5 / 5 Right Lower Abdomen 5 / 5 Gastric Drainage 200 / 200 600 / 600 Right Nare 200 / 200 600 / 600 Wound Drainage 100 / 100 120 / 120 # 1 50 / 50 50 / 50 # 2 50 / 50 70 / 70 Narrative: GENERAL: lying in bed. Appears comfortable. SKIN: Warm and dry. HEAD: Normocephalic. EYES: No scleral icterus. No injection or drainage. NECK: Supple, trachea midline. No JVD. CARDIOVASCULAR: Regular rate and rhythm without murmurs, gallops, or rubs. RESPIRATORY: Breath sounds equal bilaterally. No accessory muscle use. GASTROINTESTINAL: Postoperative abdomen with AAMIR drain left lower quadrant serosanguineous fluid, midline abdominal incision clean dry and intact. Right lower quadrant colostomy, no leakage. MUSCULOSKELETAL: No cyanosis, 1+ peripheral edema only in feet. BACK: Nontender without obvious deformity. No CVA tenderness. - Urinary Catheter Management Indwelling Urethral Catheter Cath placed during this visit: yes Reason for continuing: Hourly intake/output Insertion date: 07/28/18 Results - Labs CBC & Chem 7: 07/30/18 05:34 07/30/18 05:34 Laboratory Results - last 24 hr 07/30/18 07/30/18 05:34 05:34 WBC 22.6 H RBC 2.76 L Hgb 8.8 L D Hct 26.7 L MCV 96.6 MCH 32.0 MCHC 33.1 RDW 16.0 Plt Count 319 MPV 7.9 Neut % (Auto) 93.0 H Lymph % (Auto) 2.3 L [place] % (Auto) 4.5 Eos % (Auto) 0.1 Baso % (Auto) 0.1 Neut # (Auto) 21.0 H Lymph # (Auto) 0.5 L [place] # (Auto) 1.0 H Eos # (Auto) 0.0 Baso # (Auto) 0.0 WBC Differential . Differential Comment Auto diff final Sodium 145 Potassium 3.4 L Chloride 109 H Carbon Dioxide 26.8 Anion Gap 9 BUN 23 H Creatinine 0.91 Estimated GFR 83 L Random Glucose 104 Calcium 8.2 L Phosphorus 2.3 L D Magnesium 2.3 Total Bilirubin 0.4 Direct Bilirubin 0.1 Indirect Bilirubin 0.3 AST 36 ALT 39 Alkaline Phosphatase 53 Total Protein 5.4 L Albumin 1.6 L Microbiology 07/28/18 15:42 Wound - Other Gram Stain - Final 07/28/18 15:42 Wound - Other Wound Culture - Preliminary No growth in 24 hours 07/28/18 15:57 Wound - Other Gram Stain - Final 07/28/18 15:57 Wound - Other Wound Culture - Preliminary gram negative rods Group D Enterococcus 07/28/18 15:57 Other Acid Fast Bacilli Smear - Final No acid fast bacilli seen 07/28/18 15:42 Other Acid Fast Bacilli Smear - Final No acid fast bacilli seen Assessment and Plan - Plan Mr. Moreira is a pleasant 68-year-old male with a history of hypertension, CAD who presents to the emergency department on 07/22/2018 due to 4-5-day duration of not feeling well, nausea vomiting and anorexia. ED work up shows leukocytosis with WBC 20 1.1K, CT studies finding of retropharyngeal and retroperitoneal air. Patient is being transferred to the main hospital. General surgeon Dr. Douglas is been consulted. //Acute diverticulitis //Severe Sepsis on admission //Postoperative colectomy with colostomy on 07/28 -With tachycardia, leukocytosis, diverticulitis, acute kidney injury on admission -Due to intra-abdominal infection no need for blood cultures. sepsis continue. We'll treat with broad-spectrum antibiotics. Zosyn. = 07/24. Continue IV antibiotics for sepsis. Follow-up labs = Leukocytosis has resolved. Cultures negative. Continue IV antibiotics = 07/28. Leukocytosis backup. Possibly affected by recent stress dose steroids , pain after having bowel prep. Will consult infectious disease. Continue Zosyn and fluconazole. = 07/29. ID following. Appreciate assistance. Continue broad-spectrum antibiotics, antifungals. = 07/30. Follow-up ID recommendations. Continue antibiotics as currently ordered, vancomycin, Zosyn, fluconazole //Retropharyngeal air //intraperitoneal air General surgery consulted. Discussed with Dr. Douglas who will see patient tonight. Continue IV fluid. Continue morphine for pain. Continue Zosyn 4.5 g every 6 hours for any gram-negative and anaerobic infection = 07/23. Vascular surgery following. Appreciate assistance. Retropharyngeal air likely secondary to air tracked from diverticular perforation. Appreciate vascular surgery assistance = 07/24. Repeat CT abdomen with increase in intraperitoneal air. Management as per vascular surgery. Appreciate assistance. = 07/25. Gastroenterology following. Planning for EGD to rule out upper GI rupture. Vascular surgery following. Appreciate assistance. = 07/26. EGD yesterday negative for upper GI perforation. Vascular surgery following. Appreciate assistance. = 07/27. Gastrografin enema pending. Abdomen prior due to anxiety. = 07/28. Gastrografin enema shows leakage from large bowel. Status post bowel prep and plan for surgery today. = 07/29. Postoperative partial colectomy with colostomy performed 07/28. Appreciate surgical assistance. Continue to monitor. //Suspected adrenal insufficiency. = Home dose of 7.5 mg of prednisone daily (divided TID) = Currently on hydrocortisone 25 mg 3 times daily. //CAD s/p CABG //Hypertension -Holding anti-coagulation due to likely need for surgical intervention. cont to hold lisinopril. Enalapril IV as needed for systolic blood pressure over 180. Continue to monitor. = 10-year aspirin given history of CAD. //Anasarca Low albumin. BNP only in the 200s. Monitor fluid status closely. Encourage protein intake when tolerating by mouth. //Probable acute kidney injury Resolved. //Insomnia. Improved with Valium. //Anxiety. Treating insomnia as above Full code. SCDs. Discharge Planning: rehab versus home with home health. We will need ID and vascular surgery clearance. Home health ordered. May need rehab depending on hospital course.
--- NOTE | 2018-07-30 17:42 | P.PNID ---
Subjective Remarks: Patient states that he feels okay. He notes little pain in the abdomen. Denies chills. Afebrile. White blood cell count remain elevated. Abdominal abscess wound culture has group D enterococcus and gram-negative tatyana. This is a 68-year-old white male who has just undergone abdominal surgery. The patient was admitted with abdominal cramping in addition to pulmonary symptoms. The patient was taken to surgery yesterday. He underwent left extended colectomy, sigmoid resection with anastomosis and a diverting ileostomy for perforated diverticulitis and was also noted to have a large diverticular abscess with intraabdominal leak. This consultation was requested because of the leukocytosis. Past Medical History: PAST MEDICAL HISTORY: Hypertension, coronary artery disease, kidney stones, rheumatoid arthritis, history of hernia repair, history of shoulder surgery, history of bilateral knee surgery, coronary artery bypass graft surgery. Allergies/Adverse Reactions: Allergies No Known Allergies Allergy (Uncoded 10/30/13 06:40) Objective Vital Signs 07/29/18 18:00 07/29/18 19:00 07/29/18 19:48 Temperature Pulse Rate 88 86 Respiratory Rate 35 H 22 Blood Pressure 186/89 H 171/80 H Pulse Oximetry 95 95 95 07/29/18 20:00 07/29/18 20:06 07/29/18 20:08 Temperature 99.3 F Pulse Rate 79 87 Respiratory Rate 25 H 22 16 Blood Pressure 192/95 H Pulse Oximetry 95 95 07/29/18 21:00 07/29/18 22:00 07/29/18 23:00 Temperature Pulse Rate 83 79 88 Respiratory Rate 17 14 25 H Blood Pressure 168/81 H 177/84 H 194/95 H Pulse Oximetry 96 97 95 07/30/18 00:00 07/30/18 00:25 07/30/18 01:00 Temperature 98.5 F Pulse Rate 80 83 Respiratory Rate 25 H 24 22 Blood Pressure 170/78 H 171/77 H Pulse Oximetry 95 95 07/30/18 02:00 07/30/18 03:00 07/30/18 03:04 Temperature Pulse Rate 74 74 75 Respiratory Rate 17 19 17 Blood Pressure 159/77 H 178/84 H Pulse Oximetry 92 L 95 95 07/30/18 04:00 07/30/18 05:00 07/30/18 06:00 Temperature 98.5 F Pulse Rate 71 79 83 Respiratory Rate 18 30 H 27 H Blood Pressure 167/85 H 168/81 H 180/83 H Pulse Oximetry 95 95 95 07/30/18 07:00 07/30/18 07:56 07/30/18 08:00 Temperature 99.1 F Pulse Rate 81 80 Respiratory Rate 20 16 Blood Pressure 168/81 H 168/85 H Pulse Oximetry 95 97 96 07/30/18 09:00 07/30/18 10:00 07/30/18 11:00 Temperature Pulse Rate 81 100 H 89 Respiratory Rate 28 H 17 16 Blood Pressure 174/86 H 139/77 132/76 Pulse Oximetry 97 97 98 07/30/18 12:00 07/30/18 13:34 07/30/18 14:00 Temperature 98.0 F Pulse Rate 88 110 H 91 H Respiratory Rate 31 H 8 L 17 Blood Pressure 135/74 144/80 H Pulse Oximetry 99 88 L 95 07/30/18 15:00 07/30/18 16:00 Temperature 98.4 F Pulse Rate 88 89 Respiratory Rate 16 19 Blood Pressure 143/73 H 155/76 H Pulse Oximetry 96 95 Intake & Output 07/29/18 07/30/18 07/30/18 18:59 06:59 18:59 Intake Total 1665 / 1665 1650 / 1650 100 / 100 Output Total 900 / 900 1425 / 1425 Balance 765 / 765 225 / 225 100 / 100 Weight 87 kg Intake: IV 1485 / 1485 1650 / 1650 100 / 100 LR 1000 mL Inj 1,000 ML @ 75 1000 / 1000 1000 / 1000 mls/hr IV.CONT .[id number] [facility] Rx# :[id number] Diflucan 200 mg Premix Bag 100 100 / 100 ML @ 100 mls/hr IV.SIG Q24H [facility] Rx#:[id number] Zosyn 4.5 GM Premix 4.5 gm In 200 / 200 300 / 300 100 / 100 100 ml @ 200 mls/hr IV.SIG Q6H [facility] Rx#:[id number] Vancomycin Inj 1,000 MG In NS 250 / 250 250 / 250 Inj 250 ML @ 250 mls/hr IV.SIG Q12H [facility] Rx#:[id number] Oral 180 / 180 Output: Urine Amount (Catheter) 600 / 600 700 / 700 Indwelling Urethral Catheter 600 / 600 700 / 700 Stool Amount (Stoma) 5 / 5 Right Lower Abdomen 5 / 5 Gastric Drainage 200 / 200 600 / 600 Right Nare 200 / 200 600 / 600 Wound Drainage 100 / 100 120 / 120 # 1 50 / 50 50 / 50 # 2 50 / 50 70 / 70 07/28/18 15:42 Wound - Other Gram Stain - Final 07/28/18 15:42 Wound - Other Wound Culture - Preliminary No growth in 24 hours 07/28/18 15:57 Wound - Other Gram Stain - Final 07/28/18 15:57 Wound - Other Wound Culture - Preliminary gram negative rods Group D Enterococcus 07/28/18 15:57 Other Acid Fast Bacilli Smear - Final No acid fast bacilli seen 07/28/18 15:57 Other Mycobacterial Culture - Pending 07/28/18 15:42 Other Acid Fast Bacilli Smear - Final No acid fast bacilli seen 07/28/18 15:42 Other Mycobacterial Culture - Pending 07/28/18 15:57 Other Fungal Smear - Final 07/28/18 15:57 Other Fungal Culture - Pending 07/28/18 15:42 Other Fungal Smear - Final 07/28/18 15:42 Other Fungal Culture - Pending Lab - Hematology Results 07/28/18 07/29/18 07/30/18 19:18 05:00 05:34 WBC 26.0 H 31.1 H 22.6 H RBC 3.40 L 3.39 L 2.76 L Hgb 10.9 L 10.9 L 8.8 L D Hct 32.5 L 32.3 L 26.7 L MCV 95.7 95.5 96.6 MCH 32.0 32.3 32.0 MCHC 33.4 33.8 33.1 RDW 16.1 16.3 16.0 Plt Count 356 342 319 MPV 7.9 7.9 7.9 Prelim Diff (Auto) Slide review pending Slide review pending Neut % (Auto) 94.2 H 94.0 H 93.0 H Lymph % (Auto) 2.7 L 2.0 L 2.3 L Irwin % (Auto) 3.0 3.8 4.5 Eos % (Auto) 0.1 0.0 0.1 Baso % (Auto) 0.0 0.2 0.1 Neut # (Auto) 24.5 H 29.2 H 21.0 H Lymph # (Auto) 0.7 L 0.6 L 0.5 L Irwin # (Auto) 0.8 1.2 H 1.0 H Eos # (Auto) 0.0 0.0 0.0 Baso # (Auto) 0.0 0.1 0.0 WBC Differential Manual diff final Manual diff final . Seg Neuts % (Manual) 73 H 93 H Band Neuts % (Manual) 10 H Lymphocytes % (Manual) 12 2 L Monocytes % (Manual) 2 2 Metamyelocytes % (Man) 2 H 2 H Myelocytes % (Man) 1 H 1 H Abs Neuts (Manual) 22.4 H 29.9 H Differential Comment . . Auto diff final Toxic Granulation 1+ H 1+ H Platelet Estimate Normal Normal Platelet Morphology Normal Normal Lab - Chemistry Results 07/29/18 07/30/18 05:00 05:34 Sodium 144 145 Potassium 3.6 3.4 L Chloride 108 H 109 H Carbon Dioxide 24.1 26.8 Anion Gap 12 9 BUN 21 H 23 H Creatinine 0.99 0.91 Estimated GFR 75 L 83 L Random Glucose 132 H 104 Calcium 7.9 L 8.2 L Phosphorus 3.8 2.3 L D Magnesium 2.1 2.3 Total Bilirubin 0.5 0.4 Direct Bilirubin 0.2 0.1 Indirect Bilirubin 0.3 0.3 AST 47 H 36 ALT 50 39 Alkaline Phosphatase 60 53 Total Protein 5.4 L D 5.4 L Albumin 1.7 L 1.6 L Imaging: ITS Impressions Upper GI/Barium Swallow X-Ray 07/22/18 00:00 CONCLUSION: No evidence of esophageal leak. Chest X-Ray 07/22/18 13:26 CONCLUSION: There is subcutaneous emphysema in the neck bilaterally of uncertain etiology. Chronic interstitial changes within the pulmonary parenchyma. Foot X-Ray 07/22/18 14:00 CONCLUSION: Negative for fracture or dislocation. Followup in 7-10 days is suggested if symptoms persist. Soft Tissue Neck CT 07/22/18 14:00 CONCLUSION: 1. Subcutaneous and retropharyngeal air. Most likely sources upper airway 2. Findings have been discussed with Dr. Hendricks on today's date. Chest CT 07/22/18 14:12 CONCLUSION: 1. There is extensive subcutaneous emphysema extending throughout the neck, extending along the posterior mediastinum and esophagus. There is limited imaging of the upper abdomen. This demonstrates numerous punctate areas of free intraperitoneal air. Dedicated CT imaging of the abdomen is warranted. No definite source for this is seen on the CT imaging of the chest. Abdomen/Pelvis CT 07/24/18 00:00 . CONCLUSION: 1. Large amount of free intraperitoneal air most likely from an upper abdominal source, distal esophagus or stomach. Splenic flecture, would be the other consideration. 2. There is no extravasation of contrast 3. Pelvis is unremarkable. 4. Findings were discussed with Dr. Misael Nicole w/Water [facility] 07/27/18 00:00 CONCLUSION: Significantly abnormal exam. There is extraluminal Gastrografin beginning from the mid descending colon which originally appears to be contained within this region during the course of the fluoroscopic examination, however, on post exam view with overhead film the Gastrografin is seen to extend beyond this area of confinement superiorly into the left upper quadrant where it remains ill- defined within the mesentery. Physical Exam: PHYSICAL EXAMINATION: GENERAL: No acute distress. Awake and alert and oriented. HEENT: The head is atraumatic. Extraocular movements grossly intact. Pupils reactive to light. No icterus. Oropharynx with slightly dry mucosa. No lesions. NECK: Supple, no adenopathy. LUNGS: Clear breath sounds. HEART: Regular S1, S2, without murmurs, rubs or gallops. ABDOMEN: Decreased bowel sounds, soft. No visible erythema. EXTREMITIES: No clubbing, cyanosis or edema. SKIN: No diffuse rash. NEUROLOGIC: No gross focal findings. PSYCHIATRIC: Calm and cooperative. Assessment and Plan - Plan IMPRESSION: 1. Intra-abdominal infection secondary to perforated diverticulitis. Culture has group D enterococcus and gram-negative tatyana preliminary. 2. The patient is status post surgery with colectomy and sigmoid resection being performed on 07/28/2008. The patient noted to have intra-abdominal leak from large diverticular abscess. 3. Leukocytosis secondary to infection. White blood cell count remain elevated. RECOMMENDATIONS: 1. Continue vancomycin. 2. Continue piperacillin/tazobactam. 3. Continue Diflucan. 4. Monitor wound culture. 5. Monitor white blood cell count. 6. Monitor clinical status.
--- NOTE | 2018-07-30 17:57 | P.PNVS ---
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 here. As noted in my original consultation I evaluate the patient carefully and he certainly did not appear clinically ill as most patients with Boerhaave syndrome would. Patients with Boerhaave syndrome I usually sweating, pale almost catatonic in chest pain and guarding in all 4 quadrants Those patients deteriorate very rapidly and unless surgery is performed they dying a very short period of time This gentleman appeared quite comfortable with mild abdominal pain and clearly not septic Therefore the remaining diagnoses were possible rupture of a Zenker's diverticulum or an intra-abdominal source. Esophageal swallow clearly shows clean esophagus without any lesions or leaks. On the other hand patient does have some thickening of the descending colon and proximal sigmoid as well as tracking air in the retroperitoneum therefore working diagnosis should be perforated diverticulum of the proximal sigmoid colon with tracking into the retroperitoneum and higher up into the chest Today abdomen is soft with active bowel sounds and tender in the left hemiabdomen Patient states the tenderness started last night White count is normalizing and left shift is receding Would keep on IV antibiotics will advance diet and repeat CT scan of the abdomen and pelvis on After that if patient does well he can go home on oral antibiotics follow-up with the gastroenterology for repeat colonoscopy in about a month and depending on the findings likelihood is we will schedule him for left colon/sigmoid elective resection In the face of retroperitoneal perforation dissection this is not the type of diverticulitis that should be left and only treated medically likely due for majority of diverticular disease these days 07/24/2018 Abdomen is soft active bowel sounds no rebound no guarding no masses Tender in the left midabdomen at this time Patient is greatly improved clinically and leukocytosis is resolved At this point working diagnosis is definitely sigmoid/descending colon diverticulitis with retroperitoneal perforation We will repeat CT scan of the abdomen and pelvis and see what this looks like but now with oral contrast All things equal barring any surprises clinically or diagnostically, patient can be advanced to low residue diet after the CT scan and probably discharged on oral antibiotics tomorrow We will keep on IV antibiotics for at least another day On the other hand if the CT scan reveals any surprises this may change the course of therapy and approach Addendum Patient underwent CT of abdomen and pelvis with IV and p.o. contrast which reveals reduction and near disappearance of the air in the paraesophageal area however now patient has fairly large pneumoperitoneum and air in the retroperitoneum. There is some abnormality and irregularity of the barium collection and descending colon and I still think that this is the source of patient's perforation. Nonetheless with this amount of air I believe EGD is warranted to make sure patient does not have a posterior duodenal or gastric ulcer which could cause the same Spoken Dr. Kenney about the case and spoken to Dr. Vines who will go ahead with EGD. If patient does not have a posterior penetrating or perforating ulcer which I do not think will be the case then patient will need colon resection at this admission because he is a continuous leak and I discussed this at length with the patient 07/25/2018 Patient is awake alert oriented feels well As the swelling of the bowel decreases I believe patient will pass gas and have normal bowel movements Upper endoscopy did not reveal any significant findings except some gastritis so clearly there is coming from the left colon posterior perforation Well CT scan appears to be very dramatic patient is doing well and clinically stable As always these residents with no not operating CT scans and laboratory studies but rather on patients. This patient appears to be clinically stable and considering the significance and complexity of surgery I am certainly hard pressed to operate at this time In the best case scenario patient should be allowed to cool down have repeat CAT scan if that shows more no residual free air, surgery will be mandatory In the meantime will place patient on clear liquids and see how he does 07/26/2018 Patient is awake alert and oriented Abdomen is soft active bowel sounds slightly distended Tolerating p.o. diet passing gas having bowel movements EGD revealed some gastritis but clearly no source of perforation so at this time left colon is the culprit and the working diagnosis is that of small perforated area of the left colonic diverticulosis Patient is clinically doing very well and I am hard pressed to offer him surgery at this point Will repeat CT scan of the abdomen and pelvis tomorrow and possibly do barium enema Pending on this we will decide if this is something we should address now or allow patient to call down and address electively On one hand it is hard to watch a patient have a free air in the abdomen and do nothing but on the other hand patient is clinically stable with normal white count although with left shift so it is hard to make a case to do surgery in this clinical setting Agree with Dr. Vines and medicine 07/27/2018 Patient is awake alert and oriented Today underwent Gastrografin enema exam which reveals leakage of contrast outside the lumen of the bowel probably into a large abscess cavity which would not be the worst thing but then after that it leaks in the retroperitoneum and out into the free mesenteric space Patient is now more distended and is starting to develop some guarding in the left mid abdomen Increased tenderness today Based on the clinical findings history and progress of this patient's and well as the diagnostic studies including CT scan and most recently the Gastrografin enema it is clear that the patient's conservative therapy has failed and at this point patient requires surgery I have discussed this with patient in length and all the ins and outs of the same have been discussed Patient is scheduled tomorrow for a left colon resection with primary anastomosis and possible but unlikely colostomy Patient is for most part cleaned out considering that he received p.o. contrast followed by now Gastrografin however I will give him another 2 L of GoLYTELY to completely wash him out For surgery tomorrow 07/29/2018 Patient is status post left extended colectomy sigmoid resection with a low anterior anastomosis and protective diverting ileostomy for perforated diverticulitis with a large diverticular abscess with an intra-abdominal leak Postoperatively patient is doing well Abdomen is soft with few bowel sounds Incision is clean and dry AAMIR drain is serosanguineous from the pelvic and left paracolic drain Plan Out of bed with binder Decrease IV fluid rate Keep [place] considering low anterior anastomosis and probable inability to urinate for the next few days on his own Patient is to remain n.p.o. except for ice chips few meds and the NG tube is to remain in place We will keep patient for another day in the ICU and then transferred to floor Patient is to remain on IV antibiotics including vancomycin and Zosyn and Diflucan and ID consult is pending 07/30/2018 Patient doing well Incision is clean and dry abdomen is soft with a few bowel sounds AAMIR drainage is serosanguineous Plan Keep n.p.o. but for some icicles and ice chips Keep NG tube to suction Transfer to floor Once patient passes gas through the ileostomy will start on diet ID help is greatly appreciated Objective Vital Signs / I&O: Vital Signs 07/29/18 18:00 07/29/18 19:00 07/29/18 19:48 Temperature Pulse Rate 88 86 Respiratory Rate 35 H 22 Blood Pressure 186/89 H 171/80 H Pulse Oximetry 95 95 95 07/29/18 20:00 07/29/18 20:06 07/29/18 20:08 Temperature 99.3 F Pulse Rate 79 87 Respiratory Rate 25 H 22 16 Blood Pressure 192/95 H Pulse Oximetry 95 95 07/29/18 21:00 07/29/18 22:00 07/29/18 23:00 Temperature Pulse Rate 83 79 88 Respiratory Rate 17 14 25 H Blood Pressure 168/81 H 177/84 H 194/95 H Pulse Oximetry 96 97 95 07/30/18 00:00 07/30/18 00:25 07/30/18 01:00 Temperature 98.5 F Pulse Rate 80 83 Respiratory Rate 25 H 24 22 Blood Pressure 170/78 H 171/77 H Pulse Oximetry 95 95 07/30/18 02:00 07/30/18 03:00 07/30/18 03:04 Temperature Pulse Rate 74 74 75 Respiratory Rate 17 19 17 Blood Pressure 159/77 H 178/84 H Pulse Oximetry 92 L 95 95 07/30/18 04:00 07/30/18 05:00 07/30/18 06:00 Temperature 98.5 F Pulse Rate 71 79 83 Respiratory Rate 18 30 H 27 H Blood Pressure 167/85 H 168/81 H 180/83 H Pulse Oximetry 95 95 95 07/30/18 07:00 07/30/18 07:56 07/30/18 08:00 Temperature 99.1 F Pulse Rate 81 80 Respiratory Rate 20 16 Blood Pressure 168/81 H 168/85 H Pulse Oximetry 95 97 96 07/30/18 09:00 07/30/18 10:00 07/30/18 11:00 Temperature Pulse Rate 81 100 H 89 Respiratory Rate 28 H 17 16 Blood Pressure 174/86 H 139/77 132/76 Pulse Oximetry 97 97 98 07/30/18 12:00 07/30/18 13:34 07/30/18 14:00 Temperature 98.0 F Pulse Rate 88 110 H 91 H Respiratory Rate 31 H 8 L 17 Blood Pressure 135/74 144/80 H Pulse Oximetry 99 88 L 95 07/30/18 15:00 07/30/18 16:00 Temperature 98.4 F Pulse Rate 88 89 Respiratory Rate 16 19 Blood Pressure 143/73 H 155/76 H Pulse Oximetry 96 95 Intake & Output 07/29/18 07/30/18 07/30/18 18:59 06:59 18:59 Intake Total 1665 / 1665 1650 / 1650 100 / 100 Output Total 900 / 900 1425 / 1425 Balance 765 / 765 225 / 225 100 / 100 Weight 87 kg Intake: IV 1485 / 1485 1650 / 1650 100 / 100 LR 1000 mL Inj 1,000 ML @ 75 1000 / 1000 1000 / 1000 mls/hr IV.CONT .[id number] [facility] Rx# :[id number] Diflucan 200 mg Premix Bag 100 100 / 100 ML @ 100 mls/hr IV.SIG Q24H [facility] Rx#:[id number] Zosyn 4.5 GM Premix 4.5 gm In 200 / 200 300 / 300 100 / 100 100 ml @ 200 mls/hr IV.SIG Q6H [facility] Rx#:[id number] Vancomycin Inj 1,000 MG In NS 250 / 250 250 / 250 Inj 250 ML @ 250 mls/hr IV.SIG Q12H [facility] Rx#:[id number] Oral 180 / 180 Output: Urine Amount (Catheter) 600 / 600 700 / 700 Indwelling Urethral Catheter 600 / 600 700 / 700 Stool Amount (Stoma) 5 / 5 Right Lower Abdomen 5 / 5 Gastric Drainage 200 / 200 600 / 600 Right Nare 200 / 200 600 / 600 Wound Drainage 100 / 100 120 / 120 # 1 50 / 50 50 / 50 # 2 50 / 50 70 / 70 Laboratory Results - last 24 hr 07/30/18 07/30/18 05:34 05:34 WBC 22.6 H RBC 2.76 L Hgb 8.8 L D Hct 26.7 L MCV 96.6 MCH 32.0 MCHC 33.1 RDW 16.0 Plt Count 319 MPV 7.9 Neut % (Auto) 93.0 H Lymph % (Auto) 2.3 L Sutter % (Auto) 4.5 Eos % (Auto) 0.1 Baso % (Auto) 0.1 Neut # (Auto) 21.0 H Lymph # (Auto) 0.5 L Sutter # (Auto) 1.0 H Eos # (Auto) 0.0 Baso # (Auto) 0.0 WBC Differential . Differential Comment Auto diff final Sodium 145 Potassium 3.4 L Chloride 109 H Carbon Dioxide 26.8 Anion Gap 9 BUN 23 H Creatinine 0.91 Estimated GFR 83 L Random Glucose 104 Calcium 8.2 L Phosphorus 2.3 L D Magnesium 2.3 Total Bilirubin 0.4 Direct Bilirubin 0.1 Indirect Bilirubin 0.3 AST 36 ALT 39 Alkaline Phosphatase 53 Total Protein 5.4 L Albumin 1.6 L Microbiology 07/28/18 15:42 Gram Stain - Final Wound - Other Wound Culture - Preliminary No growth in 24 hours 07/28/18 15:57 Gram Stain - Final Wound - Other Wound Culture - Preliminary gram negative rods Group D Enterococcus 07/28/18 15:57 Acid Fast Bacilli Smear - Final Other No acid fast bacilli seen 07/28/18 15:42 Acid Fast Bacilli Smear - Final Other No acid fast bacilli seen
[2018-07-30] MEDS: diazePAM 5 MG Tablet PO PRN (20:08)
[2018-07-31] MEDS: Piperacil/Tazo 4.5 GM Premix 4.5 GM/100 ML BAG IV.SIG SCH ×3 (05:03→19:44)
[2018-07-31] MEDS: HYDROmorphone PCA Inj 6 MG/30 ML PCA.VIAL PCA PRN (07:34)
[2018-07-31] MEDS: Hydrocortisone Sod Succinate 100 MG Vial IV.PUSH SCH ×2 (09:49→16:47)
[2018-07-31] MEDS: Sodium Chloride 0.9% 2 ML Flush PRN IV.FLUSH (09:51)
[2018-07-31] MEDS: Vancomycin Inj 1,000 MG in Sodium Chlor 0.9% Inj 250 ML IV.SIG SCH (09:52)
[2018-07-31] MEDS: Enoxaparin Inj 30 MG/0.3 ML Syringe SQ SCH ×2 (09:56→21:53)
[2018-07-31] MEDS: Folic Acid 1 MG Tablet PO SCH (09:57)
[2018-07-31] MEDS: hydrALAZINE 50 MG Tablet PO SCH ×3 (09:58→19:44)
[2018-07-31] MEDS: Lisinopril 20 MG Tablet PO SCH (09:58)
[2018-07-31] MEDS: Pantoprazole Inj 40 MG Vial IV.PUSH SCH ×2 (10:00→21:53)
[2018-07-31] MEDS: Sodium Chloride 0.9% 2 ML Flush BID IV.FLUSH SCH ×2 (10:03→20:56)
--- NOTE | 2018-07-31 15:12 | P.PN ---
Subjective Interval history: The patient is in bed he appears chronically ill some distress. Patient is with NG tube. Has nausea did not vomit. Did not pass gas or stool. [place] in. Has abdominal pain diffuse. And fairly good urine output. No fever or chills. Physical Exam Vital signs: Vital Signs 07/30/18 16:00 07/30/18 17:00 07/30/18 18:00 Temperature 98.4 F Pulse Rate 89 96 H 94 H Respiratory Rate 19 25 H 30 H Blood Pressure 155/76 H 176/85 H 185/89 H Pulse Oximetry 95 94 L 89 L 07/30/18 19:00 07/30/18 20:00 07/30/18 20:04 Temperature 98.5 F Pulse Rate 95 H 102 H Respiratory Rate 22 28 H 22 Blood Pressure 153/88 H 175/83 H Pulse Oximetry 94 L 95 07/30/18 21:00 07/30/18 22:00 07/31/18 00:00 Temperature 97.4 F L 97.9 F Pulse Rate 92 H 95 H 92 H Respiratory Rate 24 18 18 Blood Pressure 164/80 H 147/89 H 152/85 H Pulse Oximetry 94 L 97 96 07/31/18 04:00 07/31/18 08:00 07/31/18 08:04 Temperature 98.2 F 98.4 F Pulse Rate 79 87 Respiratory Rate 18 19 18 Blood Pressure 169/82 H 184/88 H Pulse Oximetry 93 L 94 L 07/31/18 09:22 07/31/18 12:00 07/31/18 12:04 Temperature 98.9 F Pulse Rate 97 H Respiratory Rate 17 18 Blood Pressure 169/86 H Pulse Oximetry 95 90 L Intake & Output 07/30/18 07/31/18 07/31/18 18:59 06:59 18:59 Intake Total 1450 / 1450 1325 / 1325 250 / 250 Output Total 750 / 750 1979 / 1979 Balance 700 / 700 -655 / -655 250 / 250 Weight 87 kg Intake: IV 1450 / 1450 705 / 705 250 / 250 LR 1000 mL Inj 1,000 ML @ 75 1000 / 1000 mls/hr IV.CONT .[id number] [facility] Rx# :[id number] Diflucan 200 mg Premix Bag 100 100 / 100 ML @ 100 mls/hr IV.SIG Q24H [facility] Rx#:[id number] Zosyn 4.5 GM Premix 4.5 gm In 200 / 200 200 / 200 100 ml @ 200 mls/hr IV.SIG Q6H ON LICENSE OF [facility] Rx#:[id number] Potassium Phosphate Inj 15 MMOL 155 / 155 In NS Inj 150 ML @ 38.75 mls/ hr IV.SIG ONCE ONE Rx#:[id number] Vancomycin Inj 1,000 MG In NS 250 / 250 250 / 250 250 / 250 Inj 250 ML @ 250 mls/hr IV.SIG Q12H ON LICENSE OF [facility] Rx#:[id number] Oral 620 / 620 Output: Urine Amount (Catheter) 600 / 600 850 / 850 Indwelling Urethral Catheter 600 / 600 850 / 850 Stool Amount (Stoma) 50 / 50 Right Lower Abdomen 50 / 50 Gastric Drainage 150 / 150 900 / 900 Right Nare 150 / 150 900 / 900 Wound Drainage 180 / 180 # 1 30 / 30 # 2 150 / 150 Narrative: GENERAL: The patient is a pleasant 68-year-old male, lying in bed, appears chronically ill, with NG tube in place CARDIOVASCULAR: Regular rate and rhythm without murmurs, gallops, or rubs. RESPIRATORY: Breath sounds equal bilaterally. No accessory muscle use. GASTROINTESTINAL: NG tube in place. Postoperative abdomen with AAMIR drain left lower quadrant serosanguineous fluid, midline abdominal incision clean dry and intact. Right lower quadrant colostomy, no leakage. MUSCULOSKELETAL: No cyanosis, 1+ peripheral edema only in feet. BACK: Nontender without obvious deformity. No CVA tenderness. - Urinary Catheter Management Indwelling Urethral Catheter Cath placed during this visit: yes Reason for continuing: Hourly intake/output Insertion date: 07/28/18 Results - Labs CBC & Chem 7: 07/30/18 05:34 07/30/18 05:34 Laboratory Results - last 24 hr 07/28/18 00:03 MTS Gel Crossmatch See Detail Microbiology 07/28/18 15:57 Wound - Other Gram Stain - Final 07/28/18 15:57 Wound - Other Wound Culture - Final Klebsiella pneumoniae Enterococcus faecium VRE 07/28/18 15:42 Wound - Other Gram Stain - Final 07/28/18 15:42 Wound - Other Wound Culture - Preliminary No growth in 48 hours Assessment and Plan - Assessment (1) Diverticulitis of colon with perforation Code(s): K57.20 - Diverticulitis of large intestine with perforation and abscess without bleeding Status: Acute (2) Sepsis Code(s): A41.9 - Sepsis, unspecified organism Status: Acute - Plan Code Status: Mr. Moreira is a pleasant 68-year-old male with a history of hypertension, CAD who presents to the emergency department on 07/22/2018 due to 4-5-day duration of not feeling well, nausea vomiting and anorexia. ED work up shows leukocytosis with WBC 20 1.1K, CT studies finding of retropharyngeal and retroperitoneal air. Patient is being transferred to the main hospital. General surgeon Dr. Douglas is been consulted. Acute diverticulitis Severe Sepsis on admission Postoperative colectomy with colostomy on 07/28 -With tachycardia, leukocytosis, diverticulitis, acute kidney injury on admission -Due to intra-abdominal infection no need for blood cultures. sepsis continue. We'll treat with broad-spectrum antibiotics. Zosyn. = 07/24. Continue IV antibiotics for sepsis. Follow-up labs = Leukocytosis has resolved. Cultures negative. Continue IV antibiotics = 07/28. Leukocytosis backup. Possibly affected by recent stress dose steroids , pain after having bowel prep. Will consult infectious disease. Continue Zosyn and fluconazole. = 07/29. ID following. Appreciate assistance. Continue broad-spectrum antibiotics, antifungals. = 07/30. Follow-up ID recommendations. Continue antibiotics as currently ordered, vancomycin, Zosyn, fluconazole Retropharyngeal air Intraperitoneal air General surgery consulted. Discussed with Dr. Douglas who will see patient tonight. Continue IV fluid. Continue morphine for pain. Continue Zosyn 4.5 g every 6 hours for any gram-negative and anaerobic infection = 07/23. Vascular surgery following. Appreciate assistance. Retropharyngeal air likely secondary to air tracked from diverticular perforation. Appreciate vascular surgery assistance = 07/24. Repeat CT abdomen with increase in intraperitoneal air. Management as per vascular surgery. Appreciate assistance. = 07/25. Gastroenterology following. Planning for EGD to rule out upper GI rupture. Vascular surgery following. Appreciate assistance. = 07/26. EGD yesterday negative for upper GI perforation. Vascular surgery following. Appreciate assistance. = 07/27. Gastrografin enema pending. Abdomen prior due to anxiety. = 07/28. Gastrografin enema shows leakage from large bowel. Status post bowel prep and plan for surgery today. = 07/29. Postoperative partial colectomy with colostomy performed 07/28. Appreciate surgical assistance. Continue to monitor. Suspected adrenal insufficiency. = Home dose of 7.5 mg of prednisone daily (divided TID) = Currently on hydrocortisone 25 mg 3 times daily. CAD s/p CABG Hypertension -Holding anti-coagulation due to likely need for surgical intervention. cont to hold lisinopril. Enalapril IV as needed for systolic blood pressure over 180. Continue to monitor. = 10-year aspirin given history of CAD. Anasarca Low albumin. BNP only in the 200s. Monitor fluid status closely. Encourage protein intake when tolerating by mouth. Probable acute kidney injury Resolved. Insomnia. Improved with Valium. Anxiety. Treating insomnia as above Full code. SCDs. Discharge Planning: Pending improvement and clearance by consultants. Patient currently with NG tube, he is not passing gas after surgery and did not have a bowel movement and he is nothing by mouth. rehab versus home with home health. We will need ID and vascular surgery clearance. Home health ordered. May need rehab depending on hospital course. (1) Diverticulitis of colon with perforation Qualifiers: Diverticulitis bleeding: unspecified bleeding status Qualified Code(s): K57.20 - Diverticulitis of large intestine with perforation and abscess without bleeding (2) Sepsis Qualifiers: Sepsis type: sepsis due to unspecified organism Qualified Code(s): A41.9 - Sepsis, unspecified organism
--- NOTE | 2018-07-31 15:27 | P.PNID ---
Subjective Remarks: Patient states that he feels okay. He has a little bit of pain in the abdomen. No fever or chills. White blood cell count remain elevated. Abdominal abscess wound culture has VRE and Klebsiella. Patient has NG tube in place. 68-year-old white male who has just undergone abdominal surgery. The patient was admitted with abdominal cramping in addition to pulmonary symptoms. The patient was taken to surgery yesterday. He underwent left extended colectomy, sigmoid resection with anastomosis and a diverting ileostomy for perforated diverticulitis and was also noted to have a large diverticular abscess with intraabdominal leak. This consultation was requested because of the leukocytosis. Past Medical History: PAST MEDICAL HISTORY: Hypertension, coronary artery disease, kidney stones, rheumatoid arthritis, history of hernia repair, history of shoulder surgery, history of bilateral knee surgery, coronary artery bypass graft surgery. Allergies/Adverse Reactions: Allergies No Known Allergies Allergy (Uncoded 10/30/13 06:40) Objective Vital Signs 07/30/18 16:00 07/30/18 17:00 07/30/18 18:00 Temperature 98.4 F Pulse Rate 89 96 H 94 H Respiratory Rate 19 25 H 30 H Blood Pressure 155/76 H 176/85 H 185/89 H Pulse Oximetry 95 94 L 89 L 07/30/18 19:00 07/30/18 20:00 07/30/18 20:04 Temperature 98.5 F Pulse Rate 95 H 102 H Respiratory Rate 22 28 H 22 Blood Pressure 153/88 H 175/83 H Pulse Oximetry 94 L 95 07/30/18 21:00 07/30/18 22:00 07/31/18 00:00 Temperature 97.4 F L 97.9 F Pulse Rate 92 H 95 H 92 H Respiratory Rate 24 18 18 Blood Pressure 164/80 H 147/89 H 152/85 H Pulse Oximetry 94 L 97 96 07/31/18 04:00 07/31/18 08:00 07/31/18 08:04 Temperature 98.2 F 98.4 F Pulse Rate 79 87 Respiratory Rate 18 19 18 Blood Pressure 169/82 H 184/88 H Pulse Oximetry 93 L 94 L 07/31/18 09:22 07/31/18 12:00 07/31/18 12:04 Temperature 98.9 F Pulse Rate 97 H Respiratory Rate 17 18 Blood Pressure 169/86 H Pulse Oximetry 95 90 L Intake & Output 07/30/18 07/31/18 07/31/18 18:59 06:59 18:59 Intake Total 1450 / 1450 1325 / 1325 250 / 250 Output Total 750 / 750 1979 / 1979 Balance 700 / 700 -655 / -655 250 / 250 Weight 87 kg Intake: IV 1450 / 1450 705 / 705 250 / 250 LR 1000 mL Inj 1,000 ML @ 75 1000 / 1000 mls/hr IV.CONT .[id number] [facility] Rx# :[id number] Diflucan 200 mg Premix Bag 100 100 / 100 ML @ 100 mls/hr IV.SIG Q24H [facility] Rx#:[id number] Zosyn 4.5 GM Premix 4.5 gm In 200 / 200 200 / 200 100 ml @ 200 mls/hr IV.SIG Q6H [facility] Rx#:[id number] Potassium Phosphate Inj 15 MMOL 155 / 155 In NS Inj 150 ML @ 38.75 mls/ hr IV.SIG ONCE ONE Rx#:[id number] Vancomycin Inj 1,000 MG In NS 250 / 250 250 / 250 250 / 250 Inj 250 ML @ 250 mls/hr IV.SIG Q12H [facility] Rx#:[id number] Oral 620 / 620 Output: Urine Amount (Catheter) 600 / 600 850 / 850 Indwelling Urethral Catheter 600 / 600 850 / 850 Stool Amount (Stoma) 50 / 50 Right Lower Abdomen 50 / 50 Gastric Drainage 150 / 150 900 / 900 Right Nare 150 / 150 900 / 900 Wound Drainage 180 / 180 # 1 30 / 30 # 2 150 / 150 07/28/18 15:57 Wound - Other Gram Stain - Final 07/28/18 15:57 Wound - Other Wound Culture - Final Klebsiella pneumoniae Enterococcus faecium VRE 07/28/18 15:42 Wound - Other Gram Stain - Final 07/28/18 15:42 Wound - Other Wound Culture - Preliminary No growth in 48 hours 07/28/18 15:57 Other Acid Fast Bacilli Smear - Final No acid fast bacilli seen 07/28/18 15:57 Other Mycobacterial Culture - Pending 07/28/18 15:42 Other Acid Fast Bacilli Smear - Final No acid fast bacilli seen 07/28/18 15:42 Other Mycobacterial Culture - Pending 07/28/18 15:57 Other Fungal Smear - Final 07/28/18 15:57 Other Fungal Culture - Pending 07/28/18 15:42 Other Fungal Smear - Final 07/28/18 15:42 Other Fungal Culture - Pending Lab - Hematology Results 07/30/18 05:34 WBC 22.6 H RBC 2.76 L Hgb 8.8 L D Hct 26.7 L MCV 96.6 MCH 32.0 MCHC 33.1 RDW 16.0 Plt Count 319 MPV 7.9 Neut % (Auto) 93.0 H Lymph % (Auto) 2.3 L [place] % (Auto) 4.5 Eos % (Auto) 0.1 Baso % (Auto) 0.1 Neut # (Auto) 21.0 H Lymph # (Auto) 0.5 L [place] # (Auto) 1.0 H Eos # (Auto) 0.0 Baso # (Auto) 0.0 WBC Differential . Differential Comment Auto diff final Lab - Chemistry Results 07/30/18 05:34 Sodium 145 Potassium 3.4 L Chloride 109 H Carbon Dioxide 26.8 Anion Gap 9 BUN 23 H Creatinine 0.91 Estimated GFR 83 L Random Glucose 104 Calcium 8.2 L Phosphorus 2.3 L D Magnesium 2.3 Total Bilirubin 0.4 Direct Bilirubin 0.1 Indirect Bilirubin 0.3 AST 36 ALT 39 Alkaline Phosphatase 53 Total Protein 5.4 L Albumin 1.6 L Imaging: ITS Impressions Upper GI/Barium Swallow X-Ray 07/22/18 00:00 CONCLUSION: No evidence of esophageal leak. Chest X-Ray 07/22/18 13:26 CONCLUSION: There is subcutaneous emphysema in the neck bilaterally of uncertain etiology. Chronic interstitial changes within the pulmonary parenchyma. Foot X-Ray 07/22/18 14:00 CONCLUSION: Negative for fracture or dislocation. Followup in 7-10 days is suggested if symptoms persist. Soft Tissue Neck CT 07/22/18 14:00 CONCLUSION: 1. Subcutaneous and retropharyngeal air. Most likely sources upper airway 2. Findings have been discussed with Dr. Hendricks on today's date. Chest CT 07/22/18 14:12 CONCLUSION: 1. There is extensive subcutaneous emphysema extending throughout the neck, extending along the posterior mediastinum and esophagus. There is limited imaging of the upper abdomen. This demonstrates numerous punctate areas of free intraperitoneal air. Dedicated CT imaging of the abdomen is warranted. No definite source for this is seen on the CT imaging of the chest. Abdomen/Pelvis CT 07/24/18 00:00 . CONCLUSION: 1. Large amount of free intraperitoneal air most likely from an upper abdominal source, distal esophagus or stomach. Splenic flecture, would be the other consideration. 2. There is no extravasation of contrast 3. Pelvis is unremarkable. 4. Findings were discussed with Dr. Misael Nicole w/[facility] 07/27/18 00:00 CONCLUSION: Significantly abnormal exam. There is extraluminal Gastrografin beginning from the mid descending colon which originally appears to be contained within this region during the course of the fluoroscopic examination, however, on post exam view with overhead film the Gastrografin is seen to extend beyond this area of confinement superiorly into the left upper quadrant where it remains ill- defined within the mesentery. Physical Exam: PHYSICAL EXAMINATION: GENERAL: No acute distress. Awake and alert and oriented. HEENT: The head is atraumatic. Extraocular movements grossly intact. Pupils reactive to light. No icterus. Oropharynx with slightly dry mucosa. No lesions. NECK: Supple, no adenopathy. LUNGS: Clear breath sounds. HEART: Regular S1, S2, without murmurs, rubs or gallops. ABDOMEN: Decreased bowel sounds, soft. No tenderness. EXTREMITIES: No clubbing, cyanosis or edema. SKIN: No diffuse rash. NEUROLOGIC: No gross focal findings. PSYCHIATRIC: Calm and cooperative. Assessment and Plan - Plan IMPRESSION: 1. Intra-abdominal infection secondary to perforated diverticulitis. VRE and Klebsiella. 2. The patient is status post surgery with colectomy and sigmoid resection being performed on 07/28/2008. The patient noted to have intra-abdominal leak from large diverticular abscess. 3. Leukocytosis secondary to infection. White blood cell count remain elevated. RECOMMENDATIONS: 1. Stop vancomycin. 2. Continue piperacillin/tazobactam for Klebsiella coverage. 3. Stop Diflucan. 4. Begin Zyvox for VRE coverage. 5. Monitor white blood cell count. 6. Monitor clinical status.
[2018-08-01] MEDS: Piperacil/Tazo 4.5 GM Premix 4.5 GM/100 ML BAG IV.SIG SCH ×5 (00:26→23:29)
[2018-08-01] MEDS: Hydrocortisone Sod Succinate 100 MG Vial IV.PUSH SCH ×4 (00:26→23:29)
[2018-08-01] MEDS: HYDROmorphone PCA Inj 6 MG/30 ML PCA.VIAL PCA PRN (02:01)
[2018-08-01 06:13] LABS: Baso % (Auto) 0.1 % (0.0-2.0); Eos % (Auto) 0.2 % (0.0-4.0); Hematocrit 24.9 % (39.0-51.0); Hemoglobin 8.5 gm/dL (13.0-17.0); Lymph # (Auto) 0.7 th/mm3 (1.0-4.8); Lymph % (Auto) 4.6 % (9.0-44.0); Mean Corpuscular HGB Conc 34.1 % (32.0-36.0); Mean Corpuscular Hemoglobin 32.2 pg (27.0-34.0); Mean Corpuscular Volume 94.4 fL (80.0-100.0); Mean Platelet Volume 7.9 fL (7.0-11.0); Mono # (Auto) 0.9 th/mm3 (0.0-0.9); Mono % (Auto) 5.8 % (0.0-8.0); Neut # (Auto) 14.1 th/mm3 (1.8-7.7); Neut % (Auto) 89.3 % (16.0-70.0); Platelet Count 298 th/mm3 (150-450); Red Blood Count 2.64 mil/mm3 (4.50-5.90); White Blood Count 15.8 th/mm3 (4.0-11.0)
[2018-08-01 06:32] LABS: Calcium 7.8 mg/dL (8.5-10.1); Carbon Dioxide 30.8 meq/L (21.0-32.0)
[2018-08-01 06:36] LABS: Potassium 2.7 meq/L (3.5-5.1)
[2018-08-01] MEDS: Enoxaparin Inj 30 MG/0.3 ML Syringe SQ SCH ×2 (08:16→21:10)
[2018-08-01] MEDS: hydrALAZINE 50 MG Tablet PO SCH ×3 (08:16→17:10)
[2018-08-01] MEDS: Lisinopril 20 MG Tablet PO SCH (08:16)
[2018-08-01] MEDS: Pantoprazole Inj 40 MG Vial IV.PUSH SCH ×2 (08:16→21:10)
[2018-08-01] MEDS: Sodium Chloride 0.9% 2 ML Flush BID IV.FLUSH SCH ×2 (08:16→21:11)
[2018-08-01] MEDS: Folic Acid 1 MG Tablet PO SCH (08:16)
[2018-08-01] MEDS: Potassium Chlor 20 mEq Premix 20 MEQ/100 ML PIGGYBACK IV.SIG SCH ×2 (08:24→10:22)
--- NOTE | 2018-08-01 10:25 | P.PN ---
Subjective Interval history: Patient with severe electrolytes abnormalities. Feels very tired. He is not able to eat still with NG tube can be used also for medications. Passing gas did not have a bowel movement. Colostomy bag with dark fluid. Abdominal pain at the surgical site. Abdomen is less distended today and less painful. He was up in the chair. Physical Exam Vital signs: Vital Signs 07/31/18 12:00 07/31/18 12:04 07/31/18 16:00 Temperature 98.9 F Pulse Rate 97 H Respiratory Rate 17 18 Blood Pressure 169/86 H Pulse Oximetry 95 95 07/31/18 18:00 07/31/18 20:00 07/31/18 20:34 Temperature 98.2 F 98.4 F Pulse Rate 97 H 82 Respiratory Rate 18 17 Blood Pressure 163/87 H 170/81 H Pulse Oximetry 95 94 L 95 08/01/18 00:00 08/01/18 04:00 08/01/18 05:31 Temperature 98.6 F 98.4 F Pulse Rate 79 72 Respiratory Rate 17 17 18 Blood Pressure 152/76 H 148/72 H Pulse Oximetry 95 95 08/01/18 09:00 Temperature Pulse Rate Respiratory Rate Blood Pressure Pulse Oximetry 93 L Intake & Output 07/31/18 08/01/18 08/01/18 18:59 06:59 18:59 Intake Total 1090 / 1090 3080 / 3080 100 / 100 Output Total 1755 / 1755 1805 / 1805 Balance -665 / -665 1275 / 1275 100 / 100 Weight 87 kg Intake: IV 650 / 650 2600 / 2600 100 / 100 LR 1000 mL Inj 1,000 ML @ 75 2000 / 2000 mls/hr IV.CONT .[id number] [facility] Rx# :[id number] Zyvox 600 mg Premix 300 ML @ 300 / 300 300 / 300 300 mls/hr IV.SIG Q12H [facility] Rx#: [id number] Zosyn 4.5 GM Premix 4.5 gm In 100 / 100 300 / 300 100 ml @ 200 mls/hr IV.SIG Q6H [facility] Rx#:[id number] KCl 20 mEq Premix Inj 20 meq In 100 / 100 100 ml @ 50 mls/hr IV.SIG Q2H [facility] Rx#:[id number] Vancomycin Inj 1,000 MG In NS 250 / 250 Inj 250 ML @ 250 mls/hr IV.SIG Q12H [facility] Rx#:[id number] Oral 440 / 440 480 / 480 Output: Urine 750 / 750 Urine Amount (Catheter) 700 / 700 Indwelling Urethral Catheter 700 / 700 Stool Amount (Stoma) 200 / 200 Right Lower Abdomen 200 / 200 Gastric Drainage 800 / 800 800 / 800 Right Nare 800 / 800 800 / 800 Wound Drainage 205 / 205 105 / 105 # 1 55 / 55 30 / 30 # 2 150 / 150 75 / 75 Narrative: GENERAL: The patient is a pleasant 68-year-old male, lying in bed, appears chronically ill, with NG tube in place CARDIOVASCULAR: Regular rate and rhythm without murmurs, gallops, or rubs. RESPIRATORY: Breath sounds equal bilaterally. No accessory muscle use. GASTROINTESTINAL: NG tube in place. Postoperative abdomen with AAMIR drain left lower quadrant serosanguineous fluid, midline abdominal incision clean dry and intact. Right lower quadrant colostomy, no leakage. MUSCULOSKELETAL: No cyanosis, 1+ peripheral edema only in feet. BACK: Nontender without obvious deformity. No CVA tenderness. - Urinary Catheter Management Indwelling Urethral Catheter Cath placed during this visit: yes Reason for continuing: Hourly intake/output Insertion date: 07/28/18 Results - Labs CBC & Chem 7: 08/01/18 05:06 08/01/18 05:06 Laboratory Results - last 24 hr 08/01/18 08/01/18 05:06 05:06 WBC 15.8 H RBC 2.64 L Hgb 8.5 L Hct 24.9 L MCV 94.4 MCH 32.2 MCHC 34.1 RDW 16.0 Plt Count 298 MPV 7.9 Neut % (Auto) 89.3 H Lymph % (Auto) 4.6 L [place] % (Auto) 5.8 Eos % (Auto) 0.2 Baso % (Auto) 0.1 Neut # (Auto) 14.1 H Lymph # (Auto) 0.7 L [place] # (Auto) 0.9 Eos # (Auto) 0.0 Baso # (Auto) 0.0 WBC Differential . Differential Comment Auto diff final Sodium 146 H Potassium 2.7 L* Chloride 108 H Carbon Dioxide 30.8 Anion Gap 7 BUN 17 Creatinine 0.91 Estimated GFR 83 L Random Glucose 85 Calcium 7.8 L Microbiology 07/28/18 15:42 Wound - Other Gram Stain - Final 07/28/18 15:42 Wound - Other Wound Culture - Preliminary 07/28/18 15:57 Wound - Other Gram Stain - Final 07/28/18 15:57 Wound - Other Wound Culture - Final Klebsiella pneumoniae Enterococcus faecium VRE Assessment and Plan - Assessment (1) Diverticulitis of colon with perforation Code(s): K57.20 - Diverticulitis of large intestine with perforation and abscess without bleeding Status: Acute (2) Sepsis Code(s): A41.9 - Sepsis, unspecified organism Status: Acute - Plan Mr. Moreira is a pleasant 68-year-old male with a history of hypertension, CAD who presents to the emergency department on 07/22/2018 due to 4-5-day duration of not feeling well, nausea vomiting and anorexia. ED work up shows leukocytosis with WBC 20 1.1K, CT studies finding of retropharyngeal and retroperitoneal air. Patient is being transferred to the main hospital. General surgeon Dr. Douglas is been consulted. Acute diverticulitis Severe Sepsis on admission Intra-abdominal infection secondary to perforated diverticulitis. VRE and Klebsiella. Postoperative colectomy and sigmoid resection with colostomy on 07/28. With intra abdominal leak from large diverticular abscess Persistent Leukocytosis secondary to infection. -With severe sepsis on admission tachycardia, leukocytosis, diverticulitis, acute kidney injury on admission -Due to intra-abdominal infection sepsis continue. Antibiotics per ID recommendations Received vancomycin, Zosyn, fluconazole Stop vancomycin. Continue piperacillin/tazobactam for Klebsiella coverage. Stop Diflucan. Started on Zyvox for VRE coverage. Monitor white blood cell count and clinical improvement Retropharyngeal air Intraperitoneal air General surgery consulted. Discussed with Dr. Douglas who will see patient tonight. Continue IV fluid. Continue morphine for pain. Continue Zosyn 4.5 g every 6 hours for any gram-negative and anaerobic infection = 07/23. Vascular surgery following. Appreciate assistance. Retropharyngeal air likely secondary to air tracked from diverticular perforation. Appreciate vascular surgery assistance = 07/24. Repeat CT abdomen with increase in intraperitoneal air. Management as per vascular surgery. Appreciate assistance. = 07/25. Gastroenterology following. Planning for EGD to rule out upper GI rupture. Vascular surgery following. Appreciate assistance. = 07/26. EGD yesterday negative for upper GI perforation. Vascular surgery following. Appreciate assistance. = 07/27. Gastrografin enema pending. Abdomen prior due to anxiety. = 07/28. Gastrografin enema shows leakage from large bowel. Status post bowel prep and plan for surgery today. = 07/29. Postoperative partial colectomy with colostomy performed 07/28. Appreciate surgical assistance. Continue to monitor. Severe hypokalemia Hypophosphatemia Hyperchloremia Hypernatremia Change IV fluids to half saline. Give potassium phosphate by IV. Give through NG tube potassium bicarb supplement. Continue to monitor electrolytes and replenish as needed. Suspected adrenal insufficiency. = Home dose of 7.5 mg of prednisone daily (divided TID) = Currently on hydrocortisone 25 mg 3 times daily. CAD s/p CABG Hypertension -Holding anti-coagulation due to likely need for surgical intervention. cont to hold lisinopril. Enalapril IV as needed for systolic blood pressure over 180. Continue to monitor. = 10-year aspirin given history of CAD. Anasarca Low albumin. BNP only in the 200s. Monitor fluid status closely. Encourage protein intake when tolerating by mouth. Probable acute kidney injury Resolved. Insomnia. Improved with Valium. Anxiety. Treating insomnia as above Full code. SCDs. Discharge Planning: Pending improvement and clearance by consultants. Patient currently with NG tube, he is passing gas after surgery and did not have a bowel movement and he is nothing by mouth. Has a stoma and 2 AAMIR drains rehab versus home with home health. We will need ID and vascular surgery clearance. Home health ordered. May need rehab depending on hospital course. (1) Diverticulitis of colon with perforation Qualifiers: Diverticulitis bleeding: unspecified bleeding status Qualified Code(s): K57.20 - Diverticulitis of large intestine with perforation and abscess without bleeding (2) Sepsis Qualifiers: Sepsis type: sepsis due to unspecified organism Qualified Code(s): A41.9 - Sepsis, unspecified organism
[2018-08-01] MEDS ORDERED: Potassium Bicarbonate 25 MEQ Effervescent Tablet PO ONE (10:34)
[2018-08-01] MEDS ORDERED: Magnesium Oxide 400 MG Tablet PO ONE (10:35)
[2018-08-01] MEDS ORDERED: Potassium Phosphate Inj 30 MMOL in Sodium Chlor 0.9% Inj 250 ML IV.SIG ONE (12:00)
[2018-08-01] MEDS: Sodium Chloride 0.45 % Inj 1,000 ML IV.CONT SCH (18:15)
[2018-08-01] MEDS: diazePAM 5 MG Tablet PO PRN (21:10)
[2018-08-02] MEDS: HYDROmorphone PCA Inj 6 MG/30 ML PCA.VIAL PCA PRN ×2 (00:44→23:00)
[2018-08-02] MEDS: Sodium Chloride 0.45 % Inj 1,000 ML IV.CONT SCH ×2 (04:16→15:34)
[2018-08-02] MEDS: Piperacil/Tazo 4.5 GM Premix 4.5 GM/100 ML BAG IV.SIG SCH ×4 (05:08→22:59)
[2018-08-02 07:40] LABS: Baso % (Auto) 0.3 % (0.0-2.0); Eos % (Auto) 0.2 % (0.0-4.0); Lymph # (Auto) 0.7 th/mm3 (1.0-4.8); Lymph % (Auto) 4.3 % (9.0-44.0); Mean Corpuscular HGB Conc 33.2 % (32.0-36.0); Mean Corpuscular Volume 96.5 fL (80.0-100.0); Mean Platelet Volume 7.9 fL (7.0-11.0); Mono # (Auto) 0.8 th/mm3 (0.0-0.9); Mono % (Auto) 4.6 % (0.0-8.0); Neut % (Auto) 90.6 % (16.0-70.0); Platelet Count 293 th/mm3 (150-450); Red Cell Distribution Width 15.8 % (11.6-17.2); White Blood Count 16.5 th/mm3 (4.0-11.0)
[2018-08-02 08:00] LABS: Calcium 7.5 mg/dL (8.5-10.1); Carbon Dioxide 32.1 meq/L (21.0-32.0)
[2018-08-02] MEDS ORDERED: Potassium Bicarbonate 25 MEQ Effervescent Tablet PO ONE (08:23)
[2018-08-02] MEDS: Hydrocortisone Sod Succinate 100 MG Vial IV.PUSH SCH ×3 (08:56→23:04)
[2018-08-02] MEDS: Folic Acid 1 MG Tablet PO SCH (08:56)
[2018-08-02] MEDS: Lisinopril 20 MG Tablet PO SCH (08:56)
[2018-08-02] MEDS: Pantoprazole Inj 40 MG Vial IV.PUSH SCH ×2 (08:56→20:24)
[2018-08-02] MEDS: Enoxaparin Inj 30 MG/0.3 ML Syringe SQ SCH ×2 (08:56→20:24)
[2018-08-02] MEDS: hydrALAZINE 50 MG Tablet PO SCH ×4 (08:56→17:30)
[2018-08-02] MEDS: Sodium Chloride 0.9% 2 ML Flush BID IV.FLUSH SCH ×2 (08:57→20:24)
--- NOTE | 2018-08-02 12:53 | P.PN ---
Subjective Interval history: With persistent low K Leukocytosis improving With abdominal pain at the surgical site. Is passing gas did not have a bowel movement yet No fever or chills Physical Exam Vital signs: Vital Signs 08/01/18 16:00 08/01/18 20:00 08/02/18 00:00 Temperature 98.8 F 98.3 F 97.9 F Pulse Rate 74 62 55 L Respiratory Rate 17 16 16 Blood Pressure 170/78 H 163/81 H 163/79 H Pulse Oximetry 94 L 97 97 08/02/18 04:00 08/02/18 08:00 08/02/18 09:25 Temperature 97.6 F 97.9 F Pulse Rate 70 67 Respiratory Rate 18 17 16 Blood Pressure 158/77 H 154/77 H Pulse Oximetry 95 97 08/02/18 12:00 Temperature 97.4 F L Pulse Rate 61 Respiratory Rate 18 Blood Pressure 167/85 H Pulse Oximetry 97 Intake & Output 08/01/18 08/02/18 08/02/18 18:59 06:59 18:59 Intake Total 560 / 560 1500 / 1500 400 / 400 Output Total 300 / 300 1999 / 1999 Balance 260 / 260 -500 / -500 400 / 400 Weight 83.5 kg Intake: IV 560 / 560 1500 / 1500 400 / 400 1/2 Normal Saline Inj 1,000 ML 1000 / 1000 @ 84 mls/hr IV.CONT .[id number] [facility] Rx#:[id number] Zyvox 600 mg Premix 300 ML @ 300 / 300 300 / 300 300 mls/hr IV.SIG Q12H [facility] Rx#: [id number] Zosyn 4.5 GM Premix 4.5 gm In 100 / 100 200 / 200 100 / 100 100 ml @ 200 mls/hr IV.SIG Q6H [facility] Rx#:[id number] KCl 20 mEq Premix Inj 20 meq In 200 / 200 100 ml @ 50 mls/hr IV.SIG Q2H [facility] Rx#:[id number] Potassium Phosphate Inj 30 MMOL 260 / 260 In NS Inj 250 ML @ 43.333 mls/ hr IV.SIG ONCE ONE Rx#:[id number] Output: Urine 1999 Stool Amount (Stoma) 180 / 180 Right Lower Abdomen 180 / 180 Wound Drainage 120 / 120 # 1 50 / 50 # 2 70 / 70 Other: Date of Last Bowel Movement 08/01/18 Narrative: GENERAL: The patient is a pleasant 68-year-old male, lying in bed, appears chronically ill, with NG tube in place CARDIOVASCULAR: Regular rate and rhythm without murmurs, gallops, or rubs. RESPIRATORY: Breath sounds equal bilaterally. No accessory muscle use. GASTROINTESTINAL: NG tube in place. Postoperative abdomen with AAMIR drain left lower quadrant serosanguineous fluid, midline abdominal incision clean dry and intact. Right lower quadrant colostomy, no leakage. MUSCULOSKELETAL: No cyanosis, 1+ peripheral edema only in feet. BACK: Nontender without obvious deformity. No CVA tenderness. - Urinary Catheter Management Indwelling Urethral Catheter Cath placed during this visit: yes Reason for continuing: Hourly intake/output Insertion date: 07/28/18 Results - Labs CBC & Chem 7: 08/02/18 06:06 08/02/18 06:06 Laboratory Results - last 24 hr 08/02/18 08/02/18 06:06 06:06 WBC 16.5 H RBC 2.80 L Hgb 9.0 L Hct 27.0 L MCV 96.5 MCH 32.0 MCHC 33.2 RDW 15.8 Plt Count 293 MPV 7.9 Neut % (Auto) 90.6 H Lymph % (Auto) 4.3 L [place] % (Auto) 4.6 Eos % (Auto) 0.2 Baso % (Auto) 0.3 Neut # (Auto) 15.0 H Lymph # (Auto) 0.7 L [place] # (Auto) 0.8 Eos # (Auto) 0.0 Baso # (Auto) 0.0 WBC Differential . Differential Comment Auto diff final Sodium 141 Potassium 3.0 L Chloride 102 Carbon Dioxide 32.1 H Anion Gap 7 BUN 12 Creatinine 0.99 Estimated GFR 75 L Random Glucose 112 H Calcium 7.5 L Microbiology 07/28/18 15:42 Wound - Other Gram Stain - Final 07/28/18 15:42 Wound - Other Wound Culture - Preliminary Assessment and Plan - Assessment (1) Diverticulitis of colon with perforation Code(s): K57.20 - Diverticulitis of large intestine with perforation and abscess without bleeding Status: Acute (2) Sepsis Code(s): A41.9 - Sepsis, unspecified organism Status: Acute - Plan Mr. Moreira is a pleasant 68-year-old male with a history of hypertension, CAD who presents to the emergency department on 07/22/2018 due to 4-5-day duration of not feeling well, nausea vomiting and anorexia. ED work up shows leukocytosis with WBC 20 1.1K, CT studies finding of retropharyngeal and retroperitoneal air. Patient is being transferred to the main hospital. General surgeon Dr. Douglas is been consulted. Acute diverticulitis Severe Sepsis on admission Intra-abdominal infection secondary to perforated diverticulitis. VRE and Klebsiella. Postoperative colectomy and sigmoid resection with colostomy on 07/28. With intra abdominal leak from large diverticular abscess Persistent Leukocytosis secondary to infection. -With severe sepsis on admission tachycardia, leukocytosis, diverticulitis, acute kidney injury on admission -Due to intra-abdominal infection sepsis continue. Antibiotics per ID recommendations Received vancomycin, Zosyn, fluconazole Stop vancomycin. Continue piperacillin/tazobactam for Klebsiella coverage. Stop Diflucan. Started on Zyvox for VRE coverage. Monitor white blood cell count and clinical improvement. WBCs are trending down Retropharyngeal air Intraperitoneal air General surgery consulted. Discussed with Dr. Douglas who will see patient tonight. Continue IV fluid. Continue morphine for pain. Continue Zosyn 4.5 g every 6 hours for any gram-negative and anaerobic infection = 07/23. Vascular surgery following. Appreciate assistance. Retropharyngeal air likely secondary to air tracked from diverticular perforation. Appreciate vascular surgery assistance = 07/24. Repeat CT abdomen with increase in intraperitoneal air. Management as per vascular surgery. Appreciate assistance. = 07/25. Gastroenterology following. Planning for EGD to rule out upper GI rupture. Vascular surgery following. Appreciate assistance. = 07/26. EGD yesterday negative for upper GI perforation. Vascular surgery following. Appreciate assistance. = 07/27. Gastrografin enema pending. Abdomen prior due to anxiety. = 07/28. Gastrografin enema shows leakage from large bowel. Status post bowel prep and plan for surgery today. = 07/29. Postoperative partial colectomy with colostomy performed 07/28. Appreciate surgical assistance. Continue to monitor. Severe persistent hypokalemia, resolving Hypophosphatemia Hyperchloremia Hypernatremia Change IV fluids to half saline. Give potassium phosphate by IV. Give through NG tube potassium bicarb supplement. Continue to monitor electrolytes and replenish as needed. Severe protein calorie malnutrition. Patient with very low albumin. Consult bundle sorter. Suspected adrenal insufficiency. = Home dose of 7.5 mg of prednisone daily (divided TID) = Currently on hydrocortisone 25 mg 3 times daily. CAD s/p CABG Hypertension -Holding anti-coagulation due to likely need for surgical intervention. cont to hold lisinopril. Enalapril IV as needed for systolic blood pressure over 180. Continue to monitor. = 10-year aspirin given history of CAD. Anasarca Low albumin. BNP only in the 200s. Monitor fluid status closely. Encourage protein intake when tolerating by mouth. Probable acute kidney injury Resolved. Insomnia. Improved with Valium. Anxiety. Treating insomnia as above Full code. SCDs. Discharge Planning: Pending improvement and clearance by consultants. Patient currently with NG tube, he is passing gas after surgery and did not have a bowel movement and he is nothing by mouth. Has a stoma and 2 AAMIR drains rehab versus home with home health. We will need ID and surgeon clearance. Home health ordered. May need rehab depending on hospital course. (1) Diverticulitis of colon with perforation Qualifiers: Diverticulitis bleeding: unspecified bleeding status Qualified Code(s): K57.20 - Diverticulitis of large intestine with perforation and abscess without bleeding (2) Sepsis Qualifiers: Sepsis type: sepsis due to unspecified organism Qualified Code(s): A41.9 - Sepsis, unspecified organism
--- NOTE | 2018-08-02 15:04 | P.DIET ---
Nutritional Evaluation Type of nutrition evaluation: initial Nutrition screening: [facility] – [place] (08/02 Malnutrition) Objective - Diagnosis Sepsis, perforated diverticulitis - Objective % IBW: 111 (IBW: 75.5kg) Body Weight Used for Calculations: Actual (83.5kg) Energy Needs - Lower Range (kCal/kg): 28 Energy Needs - Upper Range (kCal/kg): 32 Lower Limit kCal/kg (kCals): 2,338 Upper Limit kCal/kg (kCals): 2,672 Lower Limit Protein Factor (Grams per Kg): 1.1 Upper Limit Protein Factor (Grams per Kg): 1.4 Lower Protein Needs (Protein): 92 Upper Protein Needs (Protein): 117 Fluid Factor (ml/kg): 28 Estimated Fluid Needs (ml): 2,338 Dietitian Reviewed in Medical Record: Current diet, Curent medications, Intake & Output, Labs, Medical history Diet Order: NPO Objective Comments: Labs of note: K+ 3.0, Albumin 1.6, Prealbumin 9 PMH: HTN, CAD s/p stent, CABG Assessment Assessment: Pt is at high nutritional risk r/t current clinical status. Pt has been NPO for 6 days. Per MD: Pt s/p Intra-abdominal infection secondary to perforated diverticulitis. VRE and Klebsiella. Postoperative colectomy and sigmoid resection with colostomy on 07/28. With intra abdominal leak from large diverticular abscess. Pt's nutritional needs as assessed above. Reviewed labs and noted concern for low albumin and prealbumin. However, albumin and prealbumin are negative acute-phase proteins and reflect severity of the inflammatory process vs nutritional status. That being said, pt has not had any nutrition for 6 days and is at high nutritional risk. If patient is unable to begin a PO diet, recommend alternative route of nutrition. Will monitor diet advancement and/or provide recs relative to clinical course. Recommendations: Pt NPO x 6 days Recommend advance PO diet or initiate an alternative route for nutrition. Dietitian to Monitor: Lab values, Intake & Output, Weight change, Diet advancement, Medical course
--- NOTE | 2018-08-02 17:37 | P.PNGS ---
Subjective Patient reports: no new complaints, feels better Physical Exam Vital signs: Vital Signs 08/01/18 20:00 08/02/18 00:00 08/02/18 04:00 Temperature 98.3 F 97.9 F 97.6 F Pulse Rate 62 55 L 70 Respiratory Rate 16 16 18 Blood Pressure 163/81 H 163/79 H 158/77 H Pulse Oximetry 97 97 95 08/02/18 08:00 08/02/18 09:25 08/02/18 12:00 Temperature 97.9 F 97.4 F L Pulse Rate 67 61 Respiratory Rate 17 16 18 Blood Pressure 154/77 H 167/85 H Pulse Oximetry 97 97 08/02/18 16:00 Temperature 97.7 F Pulse Rate 78 Respiratory Rate 18 Blood Pressure 185/84 H Pulse Oximetry 97 Intake & Output 08/01/18 08/02/18 08/02/18 18:59 06:59 18:59 Intake Total 560 / 560 1500 / 1500 1800 / 1800 Output Total 300 / 300 1999 / 2000 Balance 260 / 260 -500 / -500 1800 / 1800 Weight 83.5 kg Intake: IV 560 / 560 1500 / 1500 1800 / 1800 1/2 Normal Saline Inj 1,000 ML 1000 / 1000 1000 / 1000 @ 84 mls/hr IV.CONT .[id number] [facility] Rx#:[id number] Zyvox 600 mg Premix 300 ML @ 300 / 300 600 / 600 300 mls/hr IV.SIG Q12H [facility]US Rx#: [id number] Zosyn 4.5 GM Premix 4.5 gm In 100 / 100 200 / 200 200 / 200 100 ml @ 200 mls/hr IV.SIG Q6H DEMETRIUS Rx#:[id number] KCl 20 mEq Premix Inj 20 meq In 200 / 200 100 ml @ 50 mls/hr IV.SIG Q2H DEMETRIUS Rx#:[id number] Potassium Phosphate Inj 30 MMOL 260 / 260 In NS Inj 250 ML @ 43.333 mls/ hr IV.SIG ONCE ONE Rx#:[id number] Output: Urine 1999 Stool Amount (Stoma) 180 / 180 Right Lower Abdomen 180 / 180 Wound Drainage 120 / 120 # 1 50 / 50 # 2 70 / 70 Other: Date of Last Bowel Movement 08/01/18 - Constitutional no acute distress - Routine Abdominal Exam Present: soft (mild distended,ileostomy functioning and pink) - Urinary Catheter Management Indwelling Urethral Catheter Cath placed during this visit: yes Reason for continuing: Hourly intake/output Insertion date: 07/28/18 Results - Labs 08/02/18 06:06 08/02/18 06:06 Laboratory Results - last 24 hr 08/02/18 08/02/18 08/02/18 06:06 06:06 06:06 WBC 16.5 H RBC 2.80 L Hgb 9.0 L Hct 27.0 L MCV 96.5 MCH 32.0 MCHC 33.2 RDW 15.8 Plt Count 293 MPV 7.9 Neut % (Auto) 90.6 H Lymph % (Auto) 4.3 L [place] % (Auto) 4.6 Eos % (Auto) 0.2 Baso % (Auto) 0.3 Neut # (Auto) 15.0 H Lymph # (Auto) 0.7 L [place] # (Auto) 0.8 Eos # (Auto) 0.0 Baso # (Auto) 0.0 WBC Differential . Differential Comment Auto diff final Sodium 141 Potassium 3.0 L Chloride 102 Carbon Dioxide 32.1 H Anion Gap 7 BUN 12 Creatinine 0.99 Estimated GFR 75 L Random Glucose 112 H Calcium 7.5 L Prealbumin 9 L - Imaging Imaging: ITS Impressions Upper GI/Barium Swallow X-Ray 07/22/18 00:00 CONCLUSION: No evidence of esophageal leak. Chest X-Ray 07/22/18 13:26 CONCLUSION: There is subcutaneous emphysema in the neck bilaterally of uncertain etiology. Chronic interstitial changes within the pulmonary parenchyma. Foot X-Ray 07/22/18 14:00 CONCLUSION: Negative for fracture or dislocation. Followup in 7-10 days is suggested if symptoms persist. Soft Tissue Neck CT 07/22/18 14:00 CONCLUSION: 1. Subcutaneous and retropharyngeal air. Most likely sources upper airway 2. Findings have been discussed with Dr. Hendricks on today's date. Chest CT 07/22/18 14:12 CONCLUSION: 1. There is extensive subcutaneous emphysema extending throughout the neck, extending along the posterior mediastinum and esophagus. There is limited imaging of the upper abdomen. This demonstrates numerous punctate areas of free intraperitoneal air. Dedicated CT imaging of the abdomen is warranted. No definite source for this is seen on the CT imaging of the chest. Abdomen/Pelvis CT 07/24/18 00:00 . CONCLUSION: 1. Large amount of free intraperitoneal air most likely from an upper abdominal source, distal esophagus or stomach. Splenic flecture, would be the other consideration. 2. There is no extravasation of contrast 3. Pelvis is unremarkable. 4. Findings were discussed with Dr. Misael hayward/Water Soluble 07/27/18 00:00 CONCLUSION: Significantly abnormal exam. There is extraluminal Gastrografin beginning from the mid descending colon which originally appears to be contained within this region during the course of the fluoroscopic examination, however, on post exam view with overhead film the Gastrografin is seen to extend beyond this area of confinement superiorly into the left upper quadrant where it remains ill- defined within the mesentery. Assessment and Plan - Plan pod#4 exlap ileus resolving wbc improving will dc NGT NG output on the high side however-patient is taking large amount of ice chips start clears in am
[2018-08-03] MEDS: Sodium Chloride 0.45 % Inj 1,000 ML IV.CONT SCH ×2 (04:53→16:05)
[2018-08-03] MEDS: Piperacil/Tazo 4.5 GM Premix 4.5 GM/100 ML BAG IV.SIG SCH ×4 (05:01→23:54)
[2018-08-03 07:42] LABS: Baso # (Auto) 0.1 th/mm3 (0.0-0.2); Baso % (Auto) 0.4 % (0.0-2.0); Eos % (Auto) 0.2 % (0.0-4.0); Hemoglobin 8.5 gm/dL (13.0-17.0); Lymph # (Auto) 0.8 th/mm3 (1.0-4.8); Mean Corpuscular HGB Conc 35.5 % (32.0-36.0); Mean Corpuscular Hemoglobin 33.3 pg (27.0-34.0); Mean Platelet Volume 8.1 fL (7.0-11.0); Mono # (Auto) 0.8 th/mm3 (0.0-0.9); Mono % (Auto) 5.2 % (0.0-8.0); Neut # (Auto) 14.4 th/mm3 (1.8-7.7); Neut % (Auto) 89.2 % (16.0-70.0); Platelet Count 279 th/mm3 (150-450); Red Blood Count 2.56 mil/mm3 (4.50-5.90); White Blood Count 16.2 th/mm3 (4.0-11.0)
[2018-08-03 08:07] LABS: Anion Gap 6 meq/L (5-15); Blood Urea Nitrogen 10 mg/dL (7-18); Calcium 7.4 mg/dL (8.5-10.1); Carbon Dioxide 30.2 meq/L (21.0-32.0); Chloride 100 meq/L (98-107); Glomerular Filtration Rate Greater Than 89 mL/min (>89); Glucose,Random 113 mg/dL (74-106); Sodium 136 meq/L (136-145)
[2018-08-03 08:20] LABS: Calcium-Albumin Corrected 8.5 mg/dL (8.5-10.1); Total Protein 5.1 g/dL (6.4-8.2)
[2018-08-03] MEDS ORDERED: Potassium Bicarbonate 25 MEQ Effervescent Tablet PO ONE (09:47)
--- NOTE | 2018-08-03 09:50 | P.PN ---
Subjective Interval history: The patient is in bed appears improving. NG tube was removed yesterday and he is tolerating clears so far however he is with nausea now after he received potassium supplement. No vomiting. 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 Passing gas. No fever or chills overnight. No chest pain or shortness of breath. No palpitations. Physical Exam Vital signs: Vital Signs 08/02/18 12:00 08/02/18 16:00 08/02/18 20:00 Temperature 97.4 F L 97.7 F 97.3 F L Pulse Rate 61 78 72 Respiratory Rate 18 18 18 Blood Pressure 167/85 H 185/84 H 163/85 H Pulse Oximetry 97 97 95 08/02/18 21:24 08/02/18 23:30 08/03/18 00:00 Temperature 98.0 F Pulse Rate 64 Respiratory Rate 18 18 Blood Pressure 168/55 H Pulse Oximetry 94 L 94 L 08/03/18 04:00 08/03/18 05:04 08/03/18 08:00 Temperature 98.1 F 97.7 F Pulse Rate 67 67 Respiratory Rate 18 18 17 Blood Pressure 165/82 H 153/79 H Pulse Oximetry 95 99 Intake & Output 08/02/18 08/03/18 08/03/18 18:59 06:59 18:59 Intake Total 1900 / 1900 1500 / 1500 Output Total 1000 / 1000 2365 / 2365 Balance 900 / 900 -865 / -865 Weight 82.2 kg Intake: IV 1900 / 1900 1500 / 1500 1/2 Normal Saline Inj 1,000 ML 1000 / 1000 1000 / 1000 @ 84 mls/hr IV.CONT .[id number] [facility]US Rx#:[id number] Zyvox 600 mg Premix 300 ML @ 600 / 600 300 / 300 300 mls/hr IV.SIG Q12H DEMETRIUS Rx#: [id number] Zosyn 4.5 GM Premix 4.5 gm In 300 / 300 200 / 200 100 ml @ 200 mls/hr IV.SIG Q6H DEMETRIUS Rx#:[id number] Oral 0 / 0 Output: Urine 1000 / 1000 Urine Amount (Catheter) 2049 Indwelling Urethral Catheter 2049 Stool Amount (Stoma) 75 / 75 Right Lower Abdomen 75 / 75 Wound Drainage 240 / 240 # 1 Left Abdomen AAMIR Drain 50 / 50 # 2 Left Abdomen AAMIR Drain 190 / 190 Other: Date of Last Bowel Movement 08/02/18 # Bowel Movements 0 Narrative: GENERAL: The patient is a pleasant 68-year-old male, lying in bed, appears chronically ill. CARDIOVASCULAR: Regular rate and rhythm without murmurs, gallops, or rubs. RESPIRATORY: Breath sounds equal bilaterally. No accessory muscle use. GASTROINTESTINAL: NG tube in place. Postoperative abdomen with 2 AAMIR drains left lower quadrant serosanguineous fluid, midline abdominal incision clean dry and intact. Right lower quadrant colostomy, no leakage. MUSCULOSKELETAL: No cyanosis, 1+ peripheral edema only in feet. BACK: Nontender without obvious deformity. No CVA tenderness. - Urinary Catheter Management Indwelling Urethral Catheter Cath placed during this visit: yes Reason for continuing: Hourly intake/output Insertion date: 07/28/18 Results - Labs CBC & Chem 7: 08/03/18 06:13 08/03/18 05:13 Laboratory Results - last 24 hr 08/02/18 08/03/18 08/03/18 06:06 05:13 06:13 WBC 16.2 H RBC 2.56 L Hgb 8.5 L Hct 24.0 L MCV 94.0 MCH 33.3 MCHC 35.5 RDW 16.0 Plt Count 279 MPV 8.1 Neut % (Auto) 89.2 H Lymph % (Auto) 5.0 L [place] % (Auto) 5.2 Eos % (Auto) 0.2 Baso % (Auto) 0.4 Neut # (Auto) 14.4 H Lymph # (Auto) 0.8 L [place] # (Auto) 0.8 Eos # (Auto) 0.0 Baso # (Auto) 0.1 WBC Differential . Differential Comment Auto diff final Sodium 136 Potassium 3.0 L Chloride 100 Carbon Dioxide 30.2 Anion Gap 6 BUN 10 Creatinine 0.76 Estimated GFR Greater than 89 Random Glucose 113 H Calcium 7.4 L* Prot Corrected Calcium 8.5 Total Protein 5.1 L Prealbumin 9 L Microbiology 07/28/18 15:42 Wound - Other Gram Stain - Final 07/28/18 15:42 Wound - Other Wound Culture - Final Enterococcus faecalis S. aureus MRSA Assessment and Plan - Assessment (1) Diverticulitis of colon with perforation Code(s): K57.20 - Diverticulitis of large intestine with perforation and abscess without bleeding Status: Acute (2) Sepsis Code(s): A41.9 - Sepsis, unspecified organism Status: Acute - Plan Mr. Moreira is a pleasant 68-year-old male with a history of hypertension, CAD who presents to the emergency department on 07/22/2018 due to 4-5-day duration of not feeling well, nausea vomiting and anorexia. ED work up shows leukocytosis with WBC 20 1.1K, CT studies finding of retropharyngeal and retroperitoneal air. Patient is being transferred to the main hospital. General surgeon Dr. Douglas is been consulted. Acute diverticulitis Severe Sepsis on admission Intra-abdominal infection secondary to perforated diverticulitis. VRE and Klebsiella. Postoperative colectomy and sigmoid resection with colostomy on 07/28. With intra abdominal leak from large diverticular abscess Persistent Leukocytosis secondary to infection. -With severe sepsis on admission tachycardia, leukocytosis, diverticulitis, acute kidney injury on admission -Due to intra-abdominal infection sepsis continue. Antibiotics per ID recommendations Received vancomycin, Zosyn, fluconazole Stop vancomycin. Continue piperacillin/tazobactam for Klebsiella coverage. Stop Diflucan. Started on Zyvox for VRE coverage. Monitor white blood cell count and clinical improvement. WBCs are trending down Retropharyngeal air Intraperitoneal air General surgery consulted. Discussed with Dr. Douglas who will see patient tonight. Continue IV fluid. Continue morphine for pain. Continue Zosyn 4.5 g every 6 hours for any gram-negative and anaerobic infection = 07/23. Vascular surgery following. Appreciate assistance. Retropharyngeal air likely secondary to air tracked from diverticular perforation. Appreciate vascular surgery assistance = 07/24. Repeat CT abdomen with increase in intraperitoneal air. Management as per vascular surgery. Appreciate assistance. = 07/25. Gastroenterology following. Planning for EGD to rule out upper GI rupture. Vascular surgery following. Appreciate assistance. = 07/26. EGD yesterday negative for upper GI perforation. Vascular surgery following. Appreciate assistance. = 07/27. Gastrografin enema pending. Abdomen prior due to anxiety. = 07/28. Gastrografin enema shows leakage from large bowel. Status post bowel prep and plan for surgery today. = 07/29. Postoperative partial colectomy with colostomy performed 07/28. Appreciate surgical assistance. Continue to monitor. Severe persistent hypokalemia, resolving Hypophosphatemia Hyperchloremia Hypernatremia Change IV fluids to half saline, sodium improving. Received potassium phosphate by IV, potassium bicarb supplement. Continue to monitor electrolytes and replenish as needed. Severe protein calorie malnutrition. Patient with very low albumin. 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 Suspected adrenal insufficiency. = Home dose of 7.5 mg of prednisone daily (divided TID) = Currently on hydrocortisone 25 mg 3 times daily. CAD s/p CABG Hypertension -Holding anti-coagulation due to likely need for surgical intervention. cont to hold lisinopril. Enalapril IV as needed for systolic blood pressure over 180. Continue to monitor. = 10-year aspirin given history of CAD. Anasarca Low albumin. BNP only in the 200s. Monitor fluid status closely. Encourage protein intake when tolerating by mouth. Probable acute kidney injury Resolved. Insomnia. Improved with Valium. Anxiety. Treating insomnia as above Full code. SCDs. Discharge Planning: Pending improvement and clearance by consultants. DCd NG tube. Passing gas after surgery and did not have a bowel movement. Patient started on clears. Has a stoma and 2 AAMIR drains With severe electrolytes abnormalities replacing electrolytes and continue to monitor MAIL HANDLER ASSISTANT to be removed 08/04 rehab versus home with home health. We will need ID and surgeon clearance. Home health ordered. May need rehab depending on hospital course. (1) Diverticulitis of colon with perforation Qualifiers: Diverticulitis bleeding: unspecified bleeding status Qualified Code(s): K57.20 - Diverticulitis of large intestine with perforation and abscess without bleeding (2) Sepsis Qualifiers: Sepsis type: sepsis due to unspecified organism Qualified Code(s): A41.9 - Sepsis, unspecified organism
[2018-08-03] MEDS: Hydrocortisone Sod Succinate 100 MG Vial IV.PUSH SCH ×3 (10:17→23:54)
[2018-08-03] MEDS: Pantoprazole Inj 40 MG Vial IV.PUSH SCH ×2 (10:19→21:06)
[2018-08-03] MEDS: Enoxaparin Inj 30 MG/0.3 ML Syringe SQ SCH ×2 (10:20→21:06)
[2018-08-03] MEDS: hydrALAZINE 50 MG Tablet PO SCH ×3 (10:21→17:21)
[2018-08-03] MEDS: Folic Acid 1 MG Tablet PO SCH (10:22)
[2018-08-03] MEDS: Sodium Chloride 0.9% 2 ML Flush BID IV.FLUSH SCH ×2 (10:22→21:07)
[2018-08-03] MEDS: Lisinopril 20 MG Tablet PO SCH (10:22)
--- NOTE | 2018-08-03 11:54 | P.PNGS ---
Subjective Patient reports: no new complaints, feels better Physical Exam Vital signs: Vital Signs 08/02/18 12:00 08/02/18 16:00 08/02/18 20:00 Temperature 97.4 F L 97.7 F 97.3 F L Pulse Rate 61 78 72 Respiratory Rate 18 18 18 Blood Pressure 167/85 H 185/84 H 163/85 H Pulse Oximetry 97 97 95 08/02/18 21:24 08/02/18 23:30 08/03/18 00:00 Temperature 98.0 F Pulse Rate 64 Respiratory Rate 18 18 Blood Pressure 168/55 H Pulse Oximetry 94 L 94 L 08/03/18 04:00 08/03/18 05:04 08/03/18 08:00 Temperature 98.1 F 97.7 F Pulse Rate 67 67 Respiratory Rate 18 18 17 Blood Pressure 165/82 H 153/79 H Pulse Oximetry 95 99 Intake & Output 08/02/18 08/03/18 08/03/18 18:59 06:59 18:59 Intake Total 1900 / 1900 1500 / 1500 Output Total 1000 / 1000 2365 / 2365 130 / 130 Balance 900 / 900 -865 / -865 -130 / -130 Weight 82.2 kg Intake: IV 1900 / 1900 1500 / 1500 1/2 Normal Saline Inj 1,000 ML 1000 / 1000 1000 / 1000 @ 84 mls/hr IV.CONT .[id number] [facility] Rx#:[id number] Zyvox 600 mg Premix 300 ML @ 600 / 600 300 / 300 300 mls/hr IV.SIG Q12H [facility] Rx#: [id number] Zosyn 4.5 GM Premix 4.5 gm In 300 / 300 200 / 200 100 ml @ 200 mls/hr IV.SIG Q6H [facility] Rx#:[id number] Oral 0 / 0 Output: Urine 1000 / 1000 Urine Amount (Catheter) 2049 Indwelling Urethral Catheter 2049 Stool Amount (Stoma) 75 / 75 50 / 50 Right Lower Abdomen 75 / 75 50 / 50 Wound Drainage 240 / 240 80 / 80 # 1 Left Abdomen AAMIR Drain 50 / 50 20 / 20 # 2 Left Abdomen AAMIR Drain 190 / 190 60 / 60 Other: Date of Last Bowel Movement 08/02/18 # Bowel Movements 0 - Routine Abdominal Exam Present: soft, distended - Urinary Catheter Management Indwelling Urethral Catheter Cath placed during this visit: yes Reason for continuing: Hourly intake/output Insertion date: 07/28/18 Results - Labs 08/03/18 06:13 08/03/18 05:13 Laboratory Results - last 24 hr 08/02/18 08/03/18 08/03/18 06:06 05:13 06:13 WBC 16.2 H RBC 2.56 L Hgb 8.5 L Hct 24.0 L MCV 94.0 MCH 33.3 MCHC 35.5 RDW 16.0 Plt Count 279 MPV 8.1 Neut % (Auto) 89.2 H Lymph % (Auto) 5.0 L Brooke % (Auto) 5.2 Eos % (Auto) 0.2 Baso % (Auto) 0.4 Neut # (Auto) 14.4 H Lymph # (Auto) 0.8 L Brooke # (Auto) 0.8 Eos # (Auto) 0.0 Baso # (Auto) 0.1 WBC Differential . Differential Comment Auto diff final Sodium 136 Potassium 3.0 L Chloride 100 Carbon Dioxide 30.2 Anion Gap 6 BUN 10 Creatinine 0.76 Estimated GFR Greater than 89 Random Glucose 113 H Calcium 7.4 L* Prot Corrected Calcium 8.5 Total Protein 5.1 L Prealbumin 9 L - Imaging Imaging: ITS Impressions Upper GI/Barium Swallow X-Ray 07/22/18 00:00 CONCLUSION: No evidence of esophageal leak. Chest X-Ray 07/22/18 13:26 CONCLUSION: There is subcutaneous emphysema in the neck bilaterally of uncertain etiology. Chronic interstitial changes within the pulmonary parenchyma. Foot X-Ray 07/22/18 14:00 CONCLUSION: Negative for fracture or dislocation. Followup in 7-10 days is suggested if symptoms persist. Soft Tissue Neck CT 07/22/18 14:00 CONCLUSION: 1. Subcutaneous and retropharyngeal air. Most likely sources upper airway 2. Findings have been discussed with Dr. Hendricks on today's date. Chest CT 07/22/18 14:12 CONCLUSION: 1. There is extensive subcutaneous emphysema extending throughout the neck, extending along the posterior mediastinum and esophagus. There is limited imaging of the upper abdomen. This demonstrates numerous punctate areas of free intraperitoneal air. Dedicated CT imaging of the abdomen is warranted. No definite source for this is seen on the CT imaging of the chest. Abdomen/Pelvis CT 07/24/18 00:00 . CONCLUSION: 1. Large amount of free intraperitoneal air most likely from an upper abdominal source, distal esophagus or stomach. Splenic flecture, would be the other consideration. 2. There is no extravasation of contrast 3. Pelvis is unremarkable. 4. Findings were discussed with Dr. Misael hayward/Water Soluble 07/27/18 00:00 CONCLUSION: Significantly abnormal exam. There is extraluminal Gastrografin beginning from the mid descending colon which originally appears to be contained within this region during the course of the fluoroscopic examination, however, on post exam view with overhead film the Gastrografin is seen to extend beyond this area of confinement superiorly into the left upper quadrant where it remains ill- defined within the mesentery. 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
[2018-08-03] MEDS: HYDROmorphone PCA Inj 6 MG/30 ML PCA.VIAL PCA PRN (18:10)
[2018-08-03] MEDS: diazePAM 5 MG Tablet PO PRN (21:06)
[2018-08-04] MEDS: Piperacil/Tazo 4.5 GM Premix 4.5 GM/100 ML BAG IV.SIG SCH ×2 (06:12→12:20)
[2018-08-04] MEDS: Enoxaparin Inj 30 MG/0.3 ML Syringe SQ SCH ×2 (09:05→20:08)
[2018-08-04] MEDS: hydrALAZINE 50 MG Tablet PO SCH ×3 (09:06→18:42)
[2018-08-04] MEDS: Pantoprazole Inj 40 MG Vial IV.PUSH SCH ×2 (09:06→20:07)
[2018-08-04] MEDS: Hydrocortisone Sod Succinate 100 MG Vial IV.PUSH SCH ×2 (09:06→18:42)
[2018-08-04] MEDS: Sodium Chloride 0.9% 2 ML Flush BID IV.FLUSH SCH ×2 (09:07→20:08)
[2018-08-04] MEDS: Lisinopril 20 MG Tablet PO SCH (09:07)
[2018-08-04] MEDS: Folic Acid 1 MG Tablet PO SCH (09:07)
--- NOTE | 2018-08-04 13:14 | P.PN ---
Subjective Interval history: He is feeling better, able to tolerate fluids, advance diet per surgeon. Also BIT SHARPENER pump will be discontinued because with the surgeon As well. Patient with minimal nausea. No vomiting. Some abdominal distention however says he ate. Stoma is functioning. Drains in place will be possible removed tomorrow by the surgeon. Patient is improving. Physical Exam Vital signs: Vital Signs 08/03/18 16:00 08/03/18 18:10 08/03/18 20:00 Temperature 97.7 F 98.0 F Pulse Rate 66 85 Respiratory Rate 17 17 Blood Pressure 161/74 H 153/77 H Pulse Oximetry 96 96 95 08/03/18 23:26 08/04/18 00:00 08/04/18 04:46 Temperature 98.4 F 97.9 F Pulse Rate 67 77 Respiratory Rate 20 18 18 Blood Pressure 145/72 H 158/86 H Pulse Oximetry 94 L 97 08/04/18 08:00 08/04/18 12:00 Temperature 97.6 F 97.9 F Pulse Rate 78 76 Respiratory Rate 16 18 Blood Pressure 166/77 H 167/85 H Pulse Oximetry 96 96 Intake & Output 08/03/18 08/04/18 08/04/18 18:59 06:59 18:59 Intake Total 2400 / 2400 1100 / 1100 400 / 400 Output Total 1375 / 1375 1500 / 1500 370 / 370 Balance 1025 / 1025 -400 / -400 30 / 30 Weight 82 kg Intake: IV 1600 / 1600 1100 / 1100 400 / 400 1/2 Normal Saline Inj 1,000 ML 1100 / 1100 @ 84 mls/hr IV.CONT .[id number] [facility] Rx#:[id number] Zyvox 600 mg Premix 300 ML @ 300 / 300 300 / 300 300 mls/hr IV.SIG Q12H [facility] Rx#: [id number] Zosyn 4.5 GM Premix 4.5 gm In 200 / 200 100 / 100 100 / 100 100 ml @ 200 mls/hr IV.SIG Q6H [facility] Rx#:[id number] Oral 800 / 800 Output: Urine 1090 / 1090 1200 / 1200 Stool Amount (Stoma) 150 / 150 300 / 300 100 / 100 Right Lower Abdomen 150 / 150 300 / 300 100 / 100 Wound Drainage 135 / 135 270 / 270 # 1 Left Abdomen AAMIR Drain 30 / 30 40 / 40 # 2 Left Abdomen AAMIR Drain 105 / 105 230 / 230 Other: # Bowel Movements 1 Narrative: GENERAL: The patient is a pleasant 68-year-old male, lying in bed, appears chronically ill. CARDIOVASCULAR: Regular rate and rhythm without murmurs, gallops, or rubs. RESPIRATORY: Breath sounds equal bilaterally. No accessory muscle use. GASTROINTESTINAL: Postoperative abdomen with 2 AAMIR drains left lower quadrant serosanguineous fluid, midline abdominal incision clean dry and intact. Right lower quadrant colostomy. MUSCULOSKELETAL: No cyanosis, 1+ peripheral edema only in feet. BACK: Nontender without obvious deformity. No CVA tenderness. - Urinary Catheter Management Indwelling Urethral Catheter Cath placed during this visit: yes Reason for continuing: Hourly intake/output Insertion date: 07/28/18 Results - Labs CBC & Chem 7: 08/03/18 06:13 08/03/18 05:13 Assessment and Plan - Assessment (1) Diverticulitis of colon with perforation Code(s): K57.20 - Diverticulitis of large intestine with perforation and abscess without bleeding Status: Acute (2) Sepsis Code(s): A41.9 - Sepsis, unspecified organism Status: Acute - Plan Mr. Moreira is a pleasant 68-year-old male with a history of hypertension, CAD who presents to the emergency department on 07/22/2018 due to 4-5-day duration of not feeling well, nausea vomiting and anorexia. ED work up shows leukocytosis with WBC 20 1.1K, CT studies finding of retropharyngeal and retroperitoneal air. Patient is being transferred to the main hospital. General surgeon Dr. Douglas is been consulted. Acute diverticulitis Severe Sepsis on admission Intra-abdominal infection secondary to perforated diverticulitis. VRE and Klebsiella. Postoperative colectomy and sigmoid resection with colostomy on 07/28. With intra abdominal leak from large diverticular abscess Persistent Leukocytosis secondary to infection. -With severe sepsis on admission tachycardia, leukocytosis, diverticulitis, acute kidney injury on admission -Due to intra-abdominal infection sepsis continue. Antibiotics per ID recommendations Received vancomycin, Zosyn, fluconazole Stop vancomycin. Continue piperacillin/tazobactam for Klebsiella coverage. Stop Diflucan. Started on Zyvox for VRE coverage. Monitor white blood cell count and clinical improvement. WBCs are trending down Retropharyngeal air Intraperitoneal air General surgery consulted. Discussed with Dr. Douglas who will see patient tonight. Continue IV fluid. Continue morphine for pain. Continue Zosyn 4.5 g every 6 hours for any gram-negative and anaerobic infection = 07/23. Vascular surgery following. Appreciate assistance. Retropharyngeal air likely secondary to air tracked from diverticular perforation. Appreciate vascular surgery assistance = 07/24. Repeat CT abdomen with increase in intraperitoneal air. Management as per vascular surgery. Appreciate assistance. = 07/25. Gastroenterology following. Planning for EGD to rule out upper GI rupture. Vascular surgery following. Appreciate assistance. = 07/26. EGD yesterday negative for upper GI perforation. Vascular surgery following. Appreciate assistance. = 07/27. Gastrografin enema pending. Abdomen prior due to anxiety. = 07/28. Gastrografin enema shows leakage from large bowel. Status post bowel prep and plan for surgery today. = 07/29. Postoperative partial colectomy with colostomy performed 07/28. Appreciate surgical assistance. Continue to monitor. Severe persistent hypokalemia, resolving Hypophosphatemia Hyperchloremia Hypernatremia Change IV fluids to half saline, sodium improving. Received potassium phosphate by IV, potassium bicarb supplement. Continue to monitor electrolytes and replenish as needed. Severe protein calorie malnutrition. Patient with very low albumin. Consult paper roller. Suspected adrenal insufficiency. = Home dose of 7.5 mg of prednisone daily (divided TID) = Currently on hydrocortisone 25 mg 3 times daily. CAD s/p CABG Hypertension -Holding anti-coagulation due to likely need for surgical intervention. cont to hold lisinopril. Enalapril IV as needed for systolic blood pressure over 180. Continue to monitor. = 10-year aspirin given history of CAD. Anasarca Low albumin. BNP only in the 200s. Monitor fluid status closely. Encourage protein intake when tolerating by mouth. Probable acute kidney injury Resolved. Insomnia. Improved with Valium. Anxiety. Treating insomnia as above Full code. SCDs. Discharge Planning: Pending improvement and clearance by consultants. DCd NG tube. Advanced diet per surgeon to full liquids. Has a stoma and 2 AAMIR drains. Plan to remove drains on 08/05 With severe electrolytes abnormalities replacing electrolytes and continue to monitor BIT SHARPENER removed 08/04. rehab versus home with home health. We will need ID and surgeon clearance. Home health ordered. May need rehab depending on hospital course. Discussed with the patient, nurse, Dr Gilbert , surgeon (1) Diverticulitis of colon with perforation Qualifiers: Diverticulitis bleeding: unspecified bleeding status Qualified Code(s): K57.20 - Diverticulitis of large intestine with perforation and abscess without bleeding (2) Sepsis Qualifiers: Sepsis type: sepsis due to unspecified organism Qualified Code(s): A41.9 - Sepsis, unspecified organism
--- NOTE | 2018-08-04 13:32 | P.PNVS ---
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 here. As noted in my original consultation I evaluate the patient carefully and he certainly did not appear clinically ill as most patients with Boerhaave syndrome would. Patients with Boerhaave syndrome I usually sweating, pale almost catatonic in chest pain and guarding in all 4 quadrants Those patients deteriorate very rapidly and unless surgery is performed they dying a very short period of time This gentleman appeared quite comfortable with mild abdominal pain and clearly not septic Therefore the remaining diagnoses were possible rupture of a Zenker's diverticulum or an intra-abdominal source. Esophageal swallow clearly shows clean esophagus without any lesions or leaks. On the other hand patient does have some thickening of the descending colon and proximal sigmoid as well as tracking air in the retroperitoneum therefore working diagnosis should be perforated diverticulum of the proximal sigmoid colon with tracking into the retroperitoneum and higher up into the chest Today abdomen is soft with active bowel sounds and tender in the left hemiabdomen Patient states the tenderness started last night White count is normalizing and left shift is receding Would keep on IV antibiotics will advance diet and repeat CT scan of the abdomen and pelvis on After that if patient does well he can go home on oral antibiotics follow-up with the gastroenterology for repeat colonoscopy in about a month and depending on the findings likelihood is we will schedule him for left colon/sigmoid elective resection In the face of retroperitoneal perforation dissection this is not the type of diverticulitis that should be left and only treated medically likely due for majority of diverticular disease these days 07/24/2018 Abdomen is soft active bowel sounds no rebound no guarding no masses Tender in the left midabdomen at this time Patient is greatly improved clinically and leukocytosis is resolved At this point working diagnosis is definitely sigmoid/descending colon diverticulitis with retroperitoneal perforation We will repeat CT scan of the abdomen and pelvis and see what this looks like but now with oral contrast All things equal barring any surprises clinically or diagnostically, patient can be advanced to low residue diet after the CT scan and probably discharged on oral antibiotics tomorrow We will keep on IV antibiotics for at least another day On the other hand if the CT scan reveals any surprises this may change the course of therapy and approach Addendum Patient underwent CT of abdomen and pelvis with IV and p.o. contrast which reveals reduction and near disappearance of the air in the paraesophageal area however now patient has fairly large pneumoperitoneum and air in the retroperitoneum. There is some abnormality and irregularity of the barium collection and descending colon and I still think that this is the source of patient's perforation. Nonetheless with this amount of air I believe EGD is warranted to make sure patient does not have a posterior duodenal or gastric ulcer which could cause the same Spoken Dr. Kenney about the case and spoken to Dr. Vines who will go ahead with EGD. If patient does not have a posterior penetrating or perforating ulcer which I do not think will be the case then patient will need colon resection at this admission because he is a continuous leak and I discussed this at length with the patient 07/25/2018 Patient is awake alert oriented feels well As the swelling of the bowel decreases I believe patient will pass gas and have normal bowel movements Upper endoscopy did not reveal any significant findings except some gastritis so clearly there is coming from the left colon posterior perforation Well CT scan appears to be very dramatic patient is doing well and clinically stable As always these residents with no not operating CT scans and laboratory studies but rather on patients. This patient appears to be clinically stable and considering the significance and complexity of surgery I am certainly hard pressed to operate at this time In the best case scenario patient should be allowed to cool down have repeat CAT scan if that shows more no residual free air, surgery will be mandatory In the meantime will place patient on clear liquids and see how he does 07/26/2018 Patient is awake alert and oriented Abdomen is soft active bowel sounds slightly distended Tolerating p.o. diet passing gas having bowel movements EGD revealed some gastritis but clearly no source of perforation so at this time left colon is the culprit and the working diagnosis is that of small perforated area of the left colonic diverticulosis Patient is clinically doing very well and I am hard pressed to offer him surgery at this point Will repeat CT scan of the abdomen and pelvis tomorrow and possibly do barium enema Pending on this we will decide if this is something we should address now or allow patient to call down and address electively On one hand it is hard to watch a patient have a free air in the abdomen and do nothing but on the other hand patient is clinically stable with normal white count although with left shift so it is hard to make a case to do surgery in this clinical setting Agree with Dr. Vines and medicine 07/27/2018 Patient is awake alert and oriented Today underwent Gastrografin enema exam which reveals leakage of contrast outside the lumen of the bowel probably into a large abscess cavity which would not be the worst thing but then after that it leaks in the retroperitoneum and out into the free mesenteric space Patient is now more distended and is starting to develop some guarding in the left mid abdomen Increased tenderness today Based on the clinical findings history and progress of this patient's and well as the diagnostic studies including CT scan and most recently the Gastrografin enema it is clear that the patient's conservative therapy has failed and at this point patient requires surgery I have discussed this with patient in length and all the ins and outs of the same have been discussed Patient is scheduled tomorrow for a left colon resection with primary anastomosis and possible but unlikely colostomy Patient is for most part cleaned out considering that he received p.o. contrast followed by now Gastrografin however I will give him another 2 L of GoLYTELY to completely wash him out For surgery tomorrow 07/29/2018 Patient is status post left extended colectomy sigmoid resection with a low anterior anastomosis and protective diverting ileostomy for perforated diverticulitis with a large diverticular abscess with an intra-abdominal leak Postoperatively patient is doing well Abdomen is soft with few bowel sounds Incision is clean and dry AAMIR drain is serosanguineous from the pelvic and left paracolic drain Plan Out of bed with binder Decrease IV fluid rate Keep [place] considering low anterior anastomosis and probable inability to urinate for the next few days on his own Patient is to remain n.p.o. except for ice chips few meds and the NG tube is to remain in place We will keep patient for another day in the ICU and then transferred to floor Patient is to remain on IV antibiotics including vancomycin and Zosyn and Diflucan and ID consult is pending 07/30/2018 Patient doing well Incision is clean and dry abdomen is soft with a few bowel sounds AAMIR drainage is serosanguineous Plan Keep n.p.o. but for some icicles and ice chips Keep NG tube to suction Transfer to floor Once patient passes gas through the ileostomy will start on diet ID help is greatly appreciated 08/04/2018 Patient doing very well Leukocytosis slowly resolving Incision clean and dry AAMIR drain serosanguineous and will start pulling drains tomorrow Abdomen soft hypoactive bowel sounds somewhat distended and ileostomy working fine We will stop CHAIRMAN CEO pump which is not necessary for pain management anymore and in addition is causing patient to have prolonged ileus Will advance to full liquids Needs to ambulate be out of bed Abdominal cultures consistent with VRE Patient on Zyvox and Zosyn and infectious disease expertise and help greatly appreciated Objective Vital Signs / I&O: Vital Signs 08/03/18 16:00 08/03/18 18:10 08/03/18 20:00 Temperature 97.7 F 98.0 F Pulse Rate 66 85 Respiratory Rate 17 17 Blood Pressure 161/74 H 153/77 H Pulse Oximetry 96 96 95 08/03/18 23:26 08/04/18 00:00 08/04/18 04:46 Temperature 98.4 F 97.9 F Pulse Rate 67 77 Respiratory Rate 20 18 18 Blood Pressure 145/72 H 158/86 H Pulse Oximetry 94 L 97 08/04/18 08:00 08/04/18 12:00 Temperature 97.6 F 97.9 F Pulse Rate 78 76 Respiratory Rate 16 18 Blood Pressure 166/77 H 167/85 H Pulse Oximetry 96 96 Intake & Output 08/03/18 08/04/18 08/04/18 18:59 06:59 18:59 Intake Total 2400 / 2400 1100 / 1100 400 / 400 Output Total 1375 / 1375 1500 / 1500 370 / 370 Balance 1025 / 1025 -400 / -400 30 / 30 Weight 82 kg Intake: IV 1600 / 1600 1100 / 1100 400 / 400 1/2 Normal Saline Inj 1,000 ML 1100 / 1100 @ 84 mls/hr IV.CONT .[id number] [facility] Rx#:[id number] Zyvox 600 mg Premix 300 ML @ 300 / 300 300 / 300 300 mls/hr IV.SIG Q12H [facility] Rx#: [id number] Zosyn 4.5 GM Premix 4.5 gm In 200 / 200 100 / 100 100 / 100 100 ml @ 200 mls/hr IV.SIG Q6H [facility] Rx#:[id number] Oral 800 / 800 Output: Urine 1090 / 1090 1200 / 1200 Stool Amount (Stoma) 150 / 150 300 / 300 100 / 100 Right Lower Abdomen 150 / 150 300 / 300 100 / 100 Wound Drainage 135 / 135 270 / 270 # 1 Left Abdomen AAMIR Drain 30 / 30 40 / 40 # 2 Left Abdomen AAMIR Drain 105 / 105 230 / 230 Other: # Bowel Movements 1
[2018-08-04] MEDS: Morphine Inj 4 MG/ML Vial IV.PUSH PRN ×2 (15:33→20:04)
[2018-08-05] MEDS: Morphine Inj 4 MG/ML Vial IV.PUSH PRN ×6 (00:27→23:36)
[2018-08-05] MEDS: Hydrocortisone Sod Succinate 100 MG Vial IV.PUSH SCH ×4 (00:27→23:36)
--- NOTE | 2018-08-05 08:53 | P.PN ---
Subjective Interval history: K low replaced He is up in the chair. Still with AAMIR drains clamped removed and tomorrow. Pain is fairly controlled by medications. Some nausea no vomiting. On regular diet tolerates fairly well. Did not have a bowel movement. Stoma with drainage. No fever or chills overnight. Physical Exam Vital signs: Vital Signs 08/04/18 12:00 08/04/18 16:00 08/04/18 17:55 Temperature 97.9 F 98.1 F Pulse Rate 76 68 Respiratory Rate 18 16 Blood Pressure 167/85 H 143/81 H Pulse Oximetry 96 95 95 08/04/18 20:00 08/04/18 21:20 08/05/18 00:00 Temperature 98.1 F 98.2 F Pulse Rate 80 68 Respiratory Rate 17 20 18 Blood Pressure 134/63 140/69 Pulse Oximetry 97 96 08/05/18 01:30 08/05/18 05:13 Temperature Pulse Rate Respiratory Rate 18 20 Blood Pressure Pulse Oximetry Intake & Output 08/04/18 08/05/18 08/05/18 18:59 06:59 18:59 Intake Total 1350 / 1350 1260 / 1260 300 / 300 Output Total 1450 / 1450 1180 / 1180 200 / 200 Balance -100 / -100 80 / 80 100 / 100 Weight 82 kg Intake: IV 500 / 500 500 / 500 300 / 300 Maxipime Inj 1,000 MG In NS Inj 200 / 200 100 ML @ 200 mls/hr IV.SIG Q8H [facility] Rx#:[id number] Zyvox 600 mg Premix 300 ML @ 300 / 300 300 / 300 300 / 300 300 mls/hr IV.SIG Q12H [facility] Rx#: [id number] Zosyn 4.5 GM Premix 4.5 gm In 200 / 200 100 ml @ 200 mls/hr IV.SIG Q6H DEMET[facility]US Rx#:[id number] Oral 850 / 850 760 / 760 Output: Urine 800 / 800 1000 / 1000 Stool 200 / 200 Stool Amount (Stoma) 100 / 100 180 / 180 Right Lower Abdomen 100 / 100 180 / 180 Wound Drainage 350 / 350 200 / 200 # 1 Left Abdomen AAMIR Drain 50 / 50 40 / 40 # 2 Left Abdomen AAMIR Drain 300 / 300 160 / 160 Narrative: GENERAL: The patient is a pleasant 68-year-old male, lying in bed, appears chronically ill. CARDIOVASCULAR: Regular rate and rhythm without murmurs, gallops, or rubs. RESPIRATORY: Breath sounds equal bilaterally. No accessory muscle use. GASTROINTESTINAL: Postoperative abdomen with 2 AAMIR drains left lower quadrant serosanguineous fluid, midline abdominal incision clean dry and intact. Right lower quadrant colostomy. MUSCULOSKELETAL: No cyanosis, 1+ peripheral edema only in feet. BACK: Nontender without obvious deformity. No CVA tenderness. - Urinary Catheter Management Indwelling Urethral Catheter Cath placed during this visit: yes Reason for continuing: Hourly intake/output Insertion date: 07/28/18 Results - Labs CBC & Chem 7: 08/03/18 06:13 08/03/18 05:13 Assessment and Plan - Assessment (1) Diverticulitis of colon with perforation Code(s): K57.20 - Diverticulitis of large intestine with perforation and abscess without bleeding Status: Acute (2) Sepsis Code(s): A41.9 - Sepsis, unspecified organism Status: Acute - Plan Mr. Moreira is a pleasant 68-year-old male with a history of hypertension, CAD who presents to the emergency department on 07/22/2018 due to 4-5-day duration of not feeling well, nausea vomiting and anorexia. ED work up shows leukocytosis with WBC 20 1.1K, CT studies finding of retropharyngeal and retroperitoneal air. Patient is being transferred to the main hospital. General surgeon Dr. Douglas is been consulted. Acute diverticulitis Severe Sepsis on admission Intra-abdominal infection secondary to perforated diverticulitis. VRE and Klebsiella. Postoperative colectomy and sigmoid resection with colostomy on 07/28. With intra abdominal leak from large diverticular abscess Persistent Leukocytosis secondary to infection. -With severe sepsis on admission tachycardia, leukocytosis, diverticulitis, acute kidney injury on admission -Due to intra-abdominal infection sepsis continue. Antibiotics per ID recommendations Received vancomycin, Zosyn, fluconazole Stop vancomycin. Continue piperacillin/tazobactam for Klebsiella coverage. Stop Diflucan. Started on Zyvox for VRE coverage. Monitor white blood cell count and clinical improvement. WBCs are trending down Retropharyngeal air Intraperitoneal air General surgery consulted. Discussed with Dr. Douglas who will see patient tonight. Continue IV fluid. Continue morphine for pain. Continue Zosyn 4.5 g every 6 hours for any gram-negative and anaerobic infection = 11/13. Vascular surgery following. Appreciate assistance. Retropharyngeal air likely secondary to air tracked from diverticular perforation. Appreciate vascular surgery assistance = 07/24. Repeat CT abdomen with increase in intraperitoneal air. Management as per vascular surgery. Appreciate assistance. = 07/25. Gastroenterology following. Planning for EGD to rule out upper GI rupture. Vascular surgery following. Appreciate assistance. = 07/26. EGD yesterday negative for upper GI perforation. Vascular surgery following. Appreciate assistance. = 07/27. Gastrografin enema pending. Abdomen prior due to anxiety. = 07/28. Gastrografin enema shows leakage from large bowel. Status post bowel prep and plan for surgery today. = 07/29. Postoperative partial colectomy with colostomy performed 07/28. Appreciate surgical assistance. Continue to monitor. Severe persistent hypokalemia, resolving Hypophosphatemia Hyperchloremia Hypernatremia Change IV fluids to half saline, sodium improving. Received potassium phosphate by IV, potassium bicarb supplement. Continue to monitor electrolytes and replenish as needed. Severe protein calorie malnutrition. Patient with very low albumin. Consult associate civil engineer. Suspected adrenal insufficiency. = Home dose of 7.5 mg of prednisone daily (divided TID) = Currently on hydrocortisone 25 mg 3 times daily. CAD s/p CABG Hypertension -Holding anti-coagulation due to likely need for surgical intervention. cont to hold lisinopril. Enalapril IV as needed for systolic blood pressure over 180. Continue to monitor. = 10-year aspirin given history of CAD. Anasarca Low albumin. BNP only in the 200s. Monitor fluid status closely. Encourage protein intake when tolerating by mouth. Probable acute kidney injury Resolved. Insomnia. Improved with Valium. Anxiety. Treating insomnia as above Full code. SCDs. Discharge Planning: Pending improvement and clearance by consultants. DCd NG tube. Advanced diet per surgeon to full liquids. Has a stoma and 2 AAMIR drains. Plan to remove drains on 08/05 With severe electrolytes abnormalities replacing electrolytes and continue to monitor COUNTER TACKER removed 08/04. rehab versus home with home health. We will need ID and surgeon clearance. Home health ordered. May need rehab depending on hospital course. Discussed with the patient, nurse, Dr Gilbert , surgeon (1) Diverticulitis of colon with perforation Qualifiers: Diverticulitis bleeding: unspecified bleeding status Qualified Code(s): K57.20 - Diverticulitis of large intestine with perforation and abscess without bleeding (2) Sepsis Qualifiers: Sepsis type: sepsis due to unspecified organism Qualified Code(s): A41.9 - Sepsis, unspecified organism
[2018-08-05] MEDS: Sodium Chloride 0.9% 2 ML Flush BID IV.FLUSH SCH ×2 (09:15→20:57)
[2018-08-05] MEDS: Pantoprazole Inj 40 MG Vial IV.PUSH SCH ×2 (09:15→20:56)
[2018-08-05] MEDS: Lisinopril 20 MG Tablet PO SCH (09:20)
[2018-08-05] MEDS: Enoxaparin Inj 30 MG/0.3 ML Syringe SQ SCH ×2 (09:20→20:58)
[2018-08-05] MEDS: hydrALAZINE 50 MG Tablet PO SCH ×3 (09:20→18:09)
[2018-08-05] MEDS: Folic Acid 1 MG Tablet PO SCH (09:25)
--- NOTE | 2018-08-05 16:11 | P.PNID ---
Subjective Remarks: Patient states that he feels okay. Denies chills. White blood cell count remain elevated. Tolerating p.o. intake. Afebrile 68-year-old white male who has just undergone abdominal surgery. The patient was admitted with abdominal cramping in addition to pulmonary symptoms. The patient was taken to surgery yesterday. He underwent left extended colectomy, sigmoid resection with anastomosis and a diverting ileostomy for perforated diverticulitis and was also noted to have a large diverticular abscess with intraabdominal leak. This consultation was requested because of the leukocytosis. Past Medical History: PAST MEDICAL HISTORY: Hypertension, coronary artery disease, kidney stones, rheumatoid arthritis, history of hernia repair, history of shoulder surgery, history of bilateral knee surgery, coronary artery bypass graft surgery. Allergies/Adverse Reactions: Allergies No Known Allergies Allergy (Uncoded 10/30/13 06:40) Objective Vital Signs 08/04/18 17:55 08/04/18 20:00 08/04/18 21:20 Temperature 98.1 F Pulse Rate 80 Respiratory Rate 17 20 Blood Pressure 134/63 Pulse Oximetry 95 97 08/05/18 00:00 08/05/18 01:30 08/05/18 05:13 Temperature 98.2 F Pulse Rate 68 Respiratory Rate 18 18 20 Blood Pressure 140/69 Pulse Oximetry 96 08/05/18 12:00 Temperature 98.5 F Pulse Rate 75 Respiratory Rate 16 Blood Pressure 136/65 Pulse Oximetry 96 Intake & Output 08/04/18 08/05/18 08/05/18 18:59 06:59 18:59 Intake Total 1350 / 1350 1260 / 1260 400 / 400 Output Total 1450 / 1450 1180 / 1180 200 / 200 Balance -100 / -100 80 / 80 200 / 200 Weight 82 kg Intake: IV 500 / 500 500 / 500 400 / 400 Maxipime Inj 1,000 MG In NS Inj 200 / 200 100 / 100 100 ML @ 200 mls/hr IV.SIG Q8H [facility] Rx#:[id number] Zyvox 600 mg Premix 300 ML @ 300 / 300 300 / 300 300 / 300 300 mls/hr IV.SIG Q12H [facility] Rx#: [id number] Zosyn 4.5 GM Premix 4.5 gm In 200 / 200 100 ml @ 200 mls/hr IV.SIG Q6H [facility]ET[facility] Rx#:[id number] Oral 850 / 850 760 / 760 Output: Urine 800 / 800 1000 / 1000 Stool 200 / 200 Stool Amount (Stoma) 100 / 100 180 / 180 Right Lower Abdomen 100 / 100 180 / 180 Wound Drainage 350 / 350 200 / 200 # 1 Left Abdomen AAMIR Drain 50 / 50 40 / 40 # 2 Left Abdomen AAMIR Drain 300 / 300 160 / 160 07/28/18 15:57 Other Acid Fast Bacilli Smear - Final No acid fast bacilli seen 07/28/18 15:57 Other Mycobacterial Culture - Preliminary No growth in 1 week 07/28/18 15:57 Other Fungal Smear - Final 07/28/18 15:57 Other Fungal Culture - Preliminary No growth in 1 week 07/28/18 15:42 Other Fungal Smear - Final 07/28/18 15:42 Other Fungal Culture - Preliminary No growth in 1 week 07/28/18 15:42 Other Acid Fast Bacilli Smear - Final No acid fast bacilli seen 07/28/18 15:42 Other Mycobacterial Culture - Preliminary No growth in 1 week 07/28/18 15:42 Wound - Other Gram Stain - Final 07/28/18 15:42 Wound - Other Wound Culture - Final Enterococcus faecalis S. aureus MRSA Imaging: ITS Impressions Upper GI/Barium Swallow X-Ray 07/22/18 00:00 CONCLUSION: No evidence of esophageal leak. Chest X-Ray 07/22/18 13:26 CONCLUSION: There is subcutaneous emphysema in the neck bilaterally of uncertain etiology. Chronic interstitial changes within the pulmonary parenchyma. Foot X-Ray 07/22/18 14:00 CONCLUSION: Negative for fracture or dislocation. Followup in 7-10 days is suggested if symptoms persist. Soft Tissue Neck CT 07/22/18 14:00 CONCLUSION: 1. Subcutaneous and retropharyngeal air. Most likely sources upper airway 2. Findings have been discussed with Dr. Hendricks on today's date. Chest CT 07/22/18 14:12 CONCLUSION: 1. There is extensive subcutaneous emphysema extending throughout the neck, extending along the posterior mediastinum and esophagus. There is limited imaging of the upper abdomen. This demonstrates numerous punctate areas of free intraperitoneal air. Dedicated CT imaging of the abdomen is warranted. No definite source for this is seen on the CT imaging of the chest. Abdomen/Pelvis CT 07/24/18 00:00 . CONCLUSION: 1. Large amount of free intraperitoneal air most likely from an upper abdominal source, distal esophagus or stomach. Splenic flecture, would be the other consideration. 2. There is no extravasation of contrast 3. Pelvis is unremarkable. 4. Findings were discussed with Dr. Misael Nicole w/Water Soluble 07/27/18 00:00 CONCLUSION: Significantly abnormal exam. There is extraluminal Gastrografin beginning from the mid descending colon which originally appears to be contained within this region during the course of the fluoroscopic examination, however, on post exam view with overhead film the Gastrografin is seen to extend beyond this area of confinement superiorly into the left upper quadrant where it remains ill- defined within the mesentery. Physical Exam: PHYSICAL EXAMINATION: GENERAL: No acute distress. Awake and alert and oriented. HEENT: The head is atraumatic. Extraocular movements grossly intact. Pupils reactive to light. No icterus. Oropharynx with slightly dry mucosa. No lesions. NECK: Supple, no adenopathy. LUNGS: Clear breath sounds. HEART: Regular S1, S2, without murmurs, rubs or gallops. ABDOMEN: Decreased bowel sounds, soft. No tenderness. Surgical incisions look clean. No drainage. EXTREMITIES: No clubbing, cyanosis or edema. SKIN: No diffuse rash. NEUROLOGIC: No gross focal findings. PSYCHIATRIC: Calm and cooperative. Assessment and Plan - Plan IMPRESSION: 1. Intra-abdominal infection secondary to perforated diverticulitis. VRE and Klebsiella. 2. The patient is status post surgery with colectomy and sigmoid resection being performed on 07/28/2008. The patient noted to have intra-abdominal leak from large diverticular abscess. 3. Leukocytosis secondary to infection. White blood cell count remain elevated. RECOMMENDATIONS: 1. Switch penicillin tazobactam to Cefuroxime. 2. Continue Zyvox for VRE and other 10 days. He can continue these 2 antibiotics to complete 10 more days of treatment. He is cleared for discharge from my standpoint when ready.
--- NOTE | 2018-08-05 18:45 | P.PNVS ---
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 here. As noted in my original consultation I evaluate the patient carefully and he certainly did not appear clinically ill as most patients with Boerhaave syndrome would. Patients with Boerhaave syndrome I usually sweating, pale almost catatonic in chest pain and guarding in all 4 quadrants Those patients deteriorate very rapidly and unless surgery is performed they dying a very short period of time This gentleman appeared quite comfortable with mild abdominal pain and clearly not septic Therefore the remaining diagnoses were possible rupture of a Zenker's diverticulum or an intra-abdominal source. Esophageal swallow clearly shows clean esophagus without any lesions or leaks. On the other hand patient does have some thickening of the descending colon and proximal sigmoid as well as tracking air in the retroperitoneum therefore working diagnosis should be perforated diverticulum of the proximal sigmoid colon with tracking into the retroperitoneum and higher up into the chest Today abdomen is soft with active bowel sounds and tender in the left hemiabdomen Patient states the tenderness started last night White count is normalizing and left shift is receding Would keep on IV antibiotics will advance diet and repeat CT scan of the abdomen and pelvis on After that if patient does well he can go home on oral antibiotics follow-up with the gastroenterology for repeat colonoscopy in about a month and depending on the findings likelihood is we will schedule him for left colon/sigmoid elective resection In the face of retroperitoneal perforation dissection this is not the type of diverticulitis that should be left and only treated medically likely due for majority of diverticular disease these days 07/24/2018 Abdomen is soft active bowel sounds no rebound no guarding no masses Tender in the left midabdomen at this time Patient is greatly improved clinically and leukocytosis is resolved At this point working diagnosis is definitely sigmoid/descending colon diverticulitis with retroperitoneal perforation We will repeat CT scan of the abdomen and pelvis and see what this looks like but now with oral contrast All things equal barring any surprises clinically or diagnostically, patient can be advanced to low residue diet after the CT scan and probably discharged on oral antibiotics tomorrow We will keep on IV antibiotics for at least another day On the other hand if the CT scan reveals any surprises this may change the course of therapy and approach Addendum Patient underwent CT of abdomen and pelvis with IV and p.o. contrast which reveals reduction and near disappearance of the air in the paraesophageal area however now patient has fairly large pneumoperitoneum and air in the retroperitoneum. There is some abnormality and irregularity of the barium collection and descending colon and I still think that this is the source of patient's perforation. Nonetheless with this amount of air I believe EGD is warranted to make sure patient does not have a posterior duodenal or gastric ulcer which could cause the same Spoken Dr. Kenney about the case and spoken to Dr. Vines who will go ahead with EGD. If patient does not have a posterior penetrating or perforating ulcer which I do not think will be the case then patient will need colon resection at this admission because he is a continuous leak and I discussed this at length with the patient 07/25/2018 Patient is awake alert oriented feels well As the swelling of the bowel decreases I believe patient will pass gas and have normal bowel movements Upper endoscopy did not reveal any significant findings except some gastritis so clearly there is coming from the left colon posterior perforation Well CT scan appears to be very dramatic patient is doing well and clinically stable As always these residents with no not operating CT scans and laboratory studies but rather on patients. This patient appears to be clinically stable and considering the significance and complexity of surgery I am certainly hard pressed to operate at this time In the best case scenario patient should be allowed to cool down have repeat CAT scan if that shows more no residual free air, surgery will be mandatory In the meantime will place patient on clear liquids and see how he does 07/26/2018 Patient is awake alert and oriented Abdomen is soft active bowel sounds slightly distended Tolerating p.o. diet passing gas having bowel movements EGD revealed some gastritis but clearly no source of perforation so at this time left colon is the culprit and the working diagnosis is that of small perforated area of the left colonic diverticulosis Patient is clinically doing very well and I am hard pressed to offer him surgery at this point Will repeat CT scan of the abdomen and pelvis tomorrow and possibly do barium enema Pending on this we will decide if this is something we should address now or allow patient to call down and address electively On one hand it is hard to watch a patient have a free air in the abdomen and do nothing but on the other hand patient is clinically stable with normal white count although with left shift so it is hard to make a case to do surgery in this clinical setting Agree with Dr. Vines and medicine 07/27/2018 Patient is awake alert and oriented Today underwent Gastrografin enema exam which reveals leakage of contrast outside the lumen of the bowel probably into a large abscess cavity which would not be the worst thing but then after that it leaks in the retroperitoneum and out into the free mesenteric space Patient is now more distended and is starting to develop some guarding in the left mid abdomen Increased tenderness today Based on the clinical findings history and progress of this patient's and well as the diagnostic studies including CT scan and most recently the Gastrografin enema it is clear that the patient's conservative therapy has failed and at this point patient requires surgery I have discussed this with patient in length and all the ins and outs of the same have been discussed Patient is scheduled tomorrow for a left colon resection with primary anastomosis and possible but unlikely colostomy Patient is for most part cleaned out considering that he received p.o. contrast followed by now Gastrografin however I will give him another 2 L of GoLYTELY to completely wash him out For surgery tomorrow 07/29/2018 Patient is status post left extended colectomy sigmoid resection with a low anterior anastomosis and protective diverting ileostomy for perforated diverticulitis with a large diverticular abscess with an intra-abdominal leak Postoperatively patient is doing well Abdomen is soft with few bowel sounds Incision is clean and dry AAMIR drain is serosanguineous from the pelvic and left paracolic drain Plan Out of bed with binder Decrease IV fluid rate Keep [place] considering low anterior anastomosis and probable inability to urinate for the next few days on his own Patient is to remain n.p.o. except for ice chips few meds and the NG tube is to remain in place We will keep patient for another day in the ICU and then transferred to floor Patient is to remain on IV antibiotics including vancomycin and Zosyn and Diflucan and ID consult is pending 07/30/2018 Patient doing well Incision is clean and dry abdomen is soft with a few bowel sounds AAMIR drainage is serosanguineous Plan Keep n.p.o. but for some icicles and ice chips Keep NG tube to suction Transfer to floor Once patient passes gas through the ileostomy will start on diet ID help is greatly appreciated 08/04/2018 Patient doing very well Leukocytosis slowly resolving Incision clean and dry AAMIR drain serosanguineous and will start pulling drains tomorrow Abdomen soft hypoactive bowel sounds somewhat distended and ileostomy working fine We will stop SEWAGE SCREEN OPERATOR pump which is not necessary for pain management anymore and in addition is causing patient to have prolonged ileus Will advance to full liquids Needs to ambulate be out of bed Abdominal cultures consistent with VRE Patient on Zyvox and Zosyn and infectious disease expertise and help greatly appreciated 08/05/2018 Patient doing well at this time Incision is clean and dry and abdomen is soft with active bowel sounds Ileus is resolving judging by diverting ileostomy which is functioning and bag is full of air and fluid Soon patient will start passing gas below as well Advance diet Plan discharge patient Sunday Objective Vital Signs / I&O: Vital Signs 08/04/18 20:00 08/04/18 21:20 08/05/18 00:00 Temperature 98.1 F 98.2 F Pulse Rate 80 68 Respiratory Rate 17 20 18 Blood Pressure 134/63 140/69 Pulse Oximetry 97 96 08/05/18 01:30 08/05/18 05:13 08/05/18 12:00 Temperature 98.5 F Pulse Rate 75 Respiratory Rate 18 20 16 Blood Pressure 136/65 Pulse Oximetry 96 08/05/18 16:00 Temperature 97.7 F Pulse Rate 71 Respiratory Rate 17 Blood Pressure 149/71 H Pulse Oximetry 97 Intake & Output 08/04/18 08/05/18 08/05/18 18:59 06:59 18:59 Intake Total 1350 / 1350 1260 / 1260 1600 / 1600 Output Total 1450 / 1450 1180 / 1180 1885 / 1885 Balance -100 / -100 80 / 80 -285 / -285 Weight 82 kg Intake: IV 500 / 500 500 / 500 400 / 400 Maxipime Inj 1,000 MG In NS Inj 200 / 200 100 / 100 100 ML @ 200 mls/hr IV.SIG Q8H [facility]ETRIUS Rx#:[id number] Zyvox 600 mg Premix 300 ML @ 300 / 300 300 / 300 300 / 300 300 mls/hr IV.SIG Q12H DEMETRIUS Rx#: [id number] Zosyn 4.5 GM Premix 4.5 gm In 200 / 200 100 ml @ 200 mls/hr IV.SIG Q6H DEMETRIUS Rx#:[id number] Oral 850 / 850 760 / 760 1200 / 1200 Output: Urine 800 / 800 1000 / 1000 1300 / 1300 Stool 200 / 200 Stool Amount (Stoma) 100 / 100 180 / 180 220 / 220 Right Lower Abdomen 100 / 100 180 / 180 220 / 220 Wound Drainage 350 / 350 365 / 365 # 1 Left Abdomen AAMIR Drain 50 / 50 65 / 65 # 2 Left Abdomen AAMIR Drain 300 / 300 300 / 300 Other: # Bowel Movements 0 Microbiology 07/28/18 15:57 Acid Fast Bacilli Smear - Final Other No acid fast bacilli seen Mycobacterial Culture - Preliminary No growth in 1 week 07/28/18 15:57 Fungal Smear - Final Other Fungal Culture - Preliminary No growth in 1 week 07/28/18 15:42 Fungal Smear - Final Other Fungal Culture - Preliminary No growth in 1 week 07/28/18 15:42 Acid Fast Bacilli Smear - Final Other No acid fast bacilli seen Mycobacterial Culture - Preliminary No growth in 1 week
[2018-08-06] MEDS: Morphine Inj 4 MG/ML Vial IV.PUSH PRN ×5 (05:44→22:12)
[2018-08-06 07:15] LABS: Baso % (Auto) 0.3 % (0.0-2.0); Eos % (Auto) 0.1 % (0.0-4.0); Hematocrit 24.7 % (39.0-51.0); Hemoglobin 8.5 gm/dL (13.0-17.0); Lymph # (Auto) 1.1 th/mm3 (1.0-4.8); Lymph % (Auto) 9.3 % (9.0-44.0); Mean Corpuscular HGB Conc 34.6 % (32.0-36.0); Mean Corpuscular Hemoglobin 32.7 pg (27.0-34.0); Mean Corpuscular Volume 94.7 fL (80.0-100.0); Mean Platelet Volume 8.6 fL (7.0-11.0); Mono # (Auto) 0.9 th/mm3 (0.0-0.9); Mono % (Auto) 7.4 % (0.0-8.0); Neut # (Auto) 10.2 th/mm3 (1.8-7.7); Neut % (Auto) 82.9 % (16.0-70.0); Platelet Count 292 th/mm3 (150-450); Red Blood Count 2.61 mil/mm3 (4.50-5.90); Red Cell Distribution Width 16.2 % (11.6-17.2); White Blood Count 12.3 th/mm3 (4.0-11.0)
[2018-08-06] MEDS: Hydrocortisone Sod Succinate 100 MG Vial IV.PUSH SCH ×3 (09:26→23:53)
[2018-08-06] MEDS: Enoxaparin Inj 30 MG/0.3 ML Syringe SQ SCH ×2 (09:32→20:45)
[2018-08-06] MEDS: hydrALAZINE 50 MG Tablet PO SCH ×3 (09:32→17:36)
[2018-08-06] MEDS: Folic Acid 1 MG Tablet PO SCH (09:32)
[2018-08-06] MEDS: Lisinopril 20 MG Tablet PO SCH (09:32)
[2018-08-06] MEDS: Sodium Chloride 0.9% 2 ML Flush BID IV.FLUSH SCH ×2 (09:42→20:46)
[2018-08-06] MEDS: Pantoprazole Inj 40 MG Vial IV.PUSH SCH ×2 (09:42→20:45)
--- NOTE | 2018-08-06 18:26 | P.PNVS ---
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 As noted in my original consultation I evaluate the patient carefully and he certainly did not appear clinically ill as most patients with Boerhaave syndrome would. Patients with Boerhaave syndrome I usually sweating, pale almost catatonic in chest pain and guarding in all 4 quadrants Those patients deteriorate very rapidly and unless surgery is performed they dying a very short period of time This gentleman appeared quite comfortable with mild abdominal pain and clearly not septic Therefore the remaining diagnoses were possible rupture of a Zenker's diverticulum or an intra-abdominal source. Esophageal swallow clearly shows clean esophagus without any lesions or leaks. On the other hand patient does have some thickening of the descending colon and proximal sigmoid as well as tracking air in the retroperitoneum therefore working diagnosis should be perforated diverticulum of the proximal sigmoid colon with tracking into the retroperitoneum and higher up into the chest Today abdomen is soft with active bowel sounds and tender in the left hemiabdomen Patient states the tenderness started last night White count is normalizing and left shift is receding Would keep on IV antibiotics will advance diet and repeat CT scan of the abdomen and pelvis on After that if patient does well he can go home on oral antibiotics follow-up with the gastroenterology for repeat colonoscopy in about a month and depending on the findings likelihood is we will schedule him for left colon/sigmoid elective resection In the face of retroperitoneal perforation dissection this is not the type of diverticulitis that should be left and only treated medically likely due for majority of diverticular disease these days 07/24/2018 Abdomen is soft active bowel sounds no rebound no guarding no masses Tender in the left midabdomen at this time Patient is greatly improved clinically and leukocytosis is resolved At this point working diagnosis is definitely sigmoid/descending colon diverticulitis with retroperitoneal perforation We will repeat CT scan of the abdomen and pelvis and see what this looks like but now with oral contrast All things equal barring any surprises clinically or diagnostically, patient can be advanced to low residue diet after the CT scan and probably discharged on oral antibiotics tomorrow We will keep on IV antibiotics for at least another day On the other hand if the CT scan reveals any surprises this may change the course of therapy and approach Addendum Patient underwent CT of abdomen and pelvis with IV and p.o. contrast which reveals reduction and near disappearance of the air in the paraesophageal area however now patient has fairly large pneumoperitoneum and air in the retroperitoneum. There is some abnormality and irregularity of the barium collection and descending colon and I still think that this is the source of patient's perforation. Nonetheless with this amount of air I believe EGD is warranted to make sure patient does not have a posterior duodenal or gastric ulcer which could cause the same Spoken Dr. Kenney about the case and spoken to Dr. Vines who will go ahead with EGD. If patient does not have a posterior penetrating or perforating ulcer which I do not think will be the case then patient will need colon resection at this admission because he is a continuous leak and I discussed this at length with the patient 07/25/2018 Patient is awake alert oriented feels well As the swelling of the bowel decreases I believe patient will pass gas and have normal bowel movements Upper endoscopy did not reveal any significant findings except some gastritis so clearly there is coming from the left colon posterior perforation Well CT scan appears to be very dramatic patient is doing well and clinically stable As always these residents with no not operating CT scans and laboratory studies but rather on patients. This patient appears to be clinically stable and considering the significance and complexity of surgery I am certainly hard pressed to operate at this time In the best case scenario patient should be allowed to cool down have repeat CAT scan if that shows more no residual free air, surgery will be mandatory In the meantime will place patient on clear liquids and see how he does 07/26/2018 Patient is awake alert and oriented Abdomen is soft active bowel sounds slightly distended Tolerating p.o. diet passing gas having bowel movements EGD revealed some gastritis but clearly no source of perforation so at this time left colon is the culprit and the working diagnosis is that of small perforated area of the left colonic diverticulosis Patient is clinically doing very well and I am hard pressed to offer him surgery at this point Will repeat CT scan of the abdomen and pelvis tomorrow and possibly do barium enema Pending on this we will decide if this is something we should address now or allow patient to call down and address electively On one hand it is hard to watch a patient have a free air in the abdomen and do nothing but on the other hand patient is clinically stable with normal white count although with left shift so it is hard to make a case to do surgery in this clinical setting Agree with Dr. Vines and medicine 07/27/2018 Patient is awake alert and oriented Today underwent Gastrografin enema exam which reveals leakage of contrast outside the lumen of the bowel probably into a large abscess cavity which would not be the worst thing but then after that it leaks in the retroperitoneum and out into the free mesenteric space Patient is now more distended and is starting to develop some guarding in the left mid abdomen Increased tenderness today Based on the clinical findings history and progress of this patient's and well as the diagnostic studies including CT scan and most recently the Gastrografin enema it is clear that the patient's conservative therapy has failed and at this point patient requires surgery I have discussed this with patient in length and all the ins and outs of the same have been discussed Patient is scheduled tomorrow for a left colon resection with primary anastomosis and possible but unlikely colostomy Patient is for most part cleaned out considering that he received p.o. contrast followed by now Gastrografin however I will give him another 2 L of GoLYTELY to completely wash him out For surgery tomorrow 07/29/2018 Patient is status post left extended colectomy sigmoid resection with a low anterior anastomosis and protective diverting ileostomy for perforated diverticulitis with a large diverticular abscess with an intra-abdominal leak Postoperatively patient is doing well Abdomen is soft with few bowel sounds Incision is clean and dry AAMIR drain is serosanguineous from the pelvic and left paracolic drain Plan Out of bed with binder Decrease IV fluid rate Keep [place] considering low anterior anastomosis and probable inability to urinate for the next few days on his own Patient is to remain n.p.o. except for ice chips few meds and the NG tube is to remain in place We will keep patient for another day in the ICU and then transferred to floor Patient is to remain on IV antibiotics including vancomycin and Zosyn and Diflucan and ID consult is pending 07/30/2018 Patient doing well Incision is clean and dry abdomen is soft with a few bowel sounds AAMIR drainage is serosanguineous Plan Keep n.p.o. but for some icicles and ice chips Keep NG tube to suction Transfer to floor Once patient passes gas through the ileostomy will start on diet ID help is greatly appreciated 08/04/2018 Patient doing very well Leukocytosis slowly resolving Incision clean and dry AAMIR drain serosanguineous and will start pulling drains tomorrow Abdomen soft hypoactive bowel sounds somewhat distended and ileostomy working fine We will stop FUEL CELL BUILDER pump which is not necessary for pain management anymore and in addition is causing patient to have prolonged ileus Will advance to full liquids Needs to ambulate be out of bed Abdominal cultures consistent with VRE Patient on Zyvox and Zosyn and infectious disease expertise and help greatly appreciated 08/05/2018 Patient doing well at this time Incision is clean and dry and abdomen is soft with active bowel sounds Ileus is resolving judging by diverting ileostomy which is functioning and bag is full of air and fluid Soon patient will start passing gas below as well Advance diet Plan discharge patient Sunday Incision clean and dry, patient doing very well abdomen is soft active bowel sounds passed gas distally and through the ileostomy Patient is out of bed ambulating better tolerating diet Ileus is resolving however has not resolved completely yet Depending on patient's progress I will probably discharge him tomorrow for when Zyvox is completed Objective Vital Signs / I&O: Vital Signs 08/05/18 20:00 08/06/18 00:00 08/06/18 07:44 Temperature 97.7 F 98.0 F 98.2 F Pulse Rate 66 72 68 Respiratory Rate 17 18 16 Blood Pressure 164/77 H 141/75 H 160/75 H Pulse Oximetry 94 L 96 98 08/06/18 11:11 08/06/18 16:00 Temperature 97.9 F 97.8 F Pulse Rate 65 86 Respiratory Rate 17 16 Blood Pressure 124/61 130/60 Pulse Oximetry 98 97 Intake & Output 08/05/18 08/06/18 08/06/18 18:59 06:59 18:59 Intake Total 1600 / 1600 600 / 600 Output Total 1885 / 1885 1690 / 1690 Balance -285 / -285 -1090 / -1090 Weight 81 kg Intake: IV 400 / 400 600 / 600 Maxipime Inj 1,000 MG In NS Inj 100 / 100 100 ML @ 200 mls/hr IV.SIG Q8H DEMETRIUS Rx#:[id number] Zyvox 600 mg Premix 300 ML @ 300 / 300 600 / 600 300 mls/hr IV.SIG Q12H DEMETRIUS Rx#: [id number] Oral 1200 / 1200 Output: Urine 1300 / 1300 1450 / 1450 Stool Amount (Stoma) 220 / 220 100 / 100 Right Lower Abdomen 220 / 220 100 / 100 Wound Drainage 365 / 365 140 / 140 # 1 Left Abdomen AAMIR Drain 65 / 65 20 / 20 # 2 Left Abdomen AAMIR Drain 300 / 300 120 / 120 Other: # Bowel Movements 0 Laboratory Results - last 24 hr 08/06/18 06:15 WBC 12.3 H RBC 2.61 L Hgb 8.5 L Hct 24.7 L MCV 94.7 MCH 32.7 MCHC 34.6 RDW 16.2 Plt Count 292 MPV 8.6 Neut % (Auto) 82.9 H Lymph % (Auto) 9.3 [place] % (Auto) 7.4 Eos % (Auto) 0.1 Baso % (Auto) 0.3 Neut # (Auto) 10.2 H Lymph # (Auto) 1.1 [place] # (Auto) 0.9 Eos # (Auto) 0.0 Baso # (Auto) 0.0 WBC Differential . Differential Comment Auto diff final Microbiology 07/28/18 15:57 Acid Fast Bacilli Smear - Final Other No acid fast bacilli seen Mycobacterial Culture - Preliminary No growth in 1 week 07/28/18 15:57 Fungal Smear - Final Other Fungal Culture - Preliminary No growth in 1 week 07/28/18 15:42 Fungal Smear - Final Other Fungal Culture - Preliminary No growth in 1 week 07/28/18 15:42 Acid Fast Bacilli Smear - Final Other No acid fast bacilli seen Mycobacterial Culture - Preliminary No growth in 1 week
--- NOTE | 2018-08-06 19:36 | P.PN ---
Subjective Interval history: The patient was seen earlier today. He feels sleepy at this time. He was noted active during the day and he will did very well with physical therapy. AAMIR drains in place not removed yet. He is able to eat 25-50% of regular food. Stoma with some forming stool inside. Did not have a bowel movement yet. Passing gas. Abdominal pain is fairly controlled by medications, he is off GLOST TILE SORTER pump at this time. No fever or chills overnight. No nausea or vomiting. Physical Exam Vital signs: Vital Signs 08/05/18 20:00 08/06/18 00:00 08/06/18 07:44 Temperature 97.7 F 98.0 F 98.2 F Pulse Rate 66 72 68 Respiratory Rate 17 18 16 Blood Pressure 164/77 H 141/75 H 160/75 H Pulse Oximetry 94 L 96 98 08/06/18 11:11 08/06/18 16:00 Temperature 97.9 F 97.8 F Pulse Rate 65 86 Respiratory Rate 17 16 Blood Pressure 124/61 130/60 Pulse Oximetry 98 97 Intake & Output 08/06/18 08/06/18 08/07/18 06:59 18:59 06:59 Intake Total 600 / 600 1200 / 1200 Output Total 1690 / 1690 950 / 950 Balance -1090 / -1090 250 / 250 Weight 81 kg Intake: IV 600 / 600 Zyvox 600 mg Premix 300 ML @ 600 / 600 300 mls/hr IV.SIG Q12H DEMETRIUS Rx#: [id number] Oral 1200 / 1200 Output: Urine 1450 / 1450 950 / 950 Stool Amount (Stoma) 100 / 100 Right Lower Abdomen 100 / 100 Wound Drainage 140 / 140 # 1 Left Abdomen AAMIR Drain 20 / 20 # 2 Left Abdomen AAMIR Drain 120 / 120 Other: # Bowel Movements 0 Narrative: GENERAL: The patient is a pleasant 68-year-old male, lying in bed, appears chronically ill. CARDIOVASCULAR: Regular rate and rhythm without murmurs, gallops, or rubs. RESPIRATORY: Breath sounds equal bilaterally. No accessory muscle use. GASTROINTESTINAL: Postoperative abdomen with 2 AAMIR drains left lower quadrant serosanguineous fluid, midline abdominal incision clean dry and intact. Right lower quadrant colostomy. MUSCULOSKELETAL: No cyanosis, 1+ peripheral edema only in feet. BACK: Nontender without obvious deformity. No CVA tenderness. - Urinary Catheter Management Indwelling Urethral Catheter Cath placed during this visit: yes Reason for continuing: Hourly intake/output Insertion date: 07/28/18 Results - Labs CBC & Chem 7: 08/06/18 06:15 08/03/18 05:13 Laboratory Results - last 24 hr 08/06/18 06:15 WBC 12.3 H RBC 2.61 L Hgb 8.5 L Hct 24.7 L MCV 94.7 MCH 32.7 MCHC 34.6 RDW 16.2 Plt Count 292 MPV 8.6 Neut % (Auto) 82.9 H Lymph % (Auto) 9.3 [place] % (Auto) 7.4 Eos % (Auto) 0.1 Baso % (Auto) 0.3 Neut # (Auto) 10.2 H Lymph # (Auto) 1.1 [place] # (Auto) 0.9 Eos # (Auto) 0.0 Baso # (Auto) 0.0 WBC Differential . Differential Comment Auto diff final Assessment and Plan - Assessment (1) Diverticulitis of colon with perforation Code(s): K57.20 - Diverticulitis of large intestine with perforation and abscess without bleeding Status: Acute (2) Sepsis Code(s): A41.9 - Sepsis, unspecified organism Status: Acute - Plan Mr. Moreira is a pleasant 68-year-old male with a history of hypertension, CAD who presents to the emergency department on 07/22/2018 due to 4-5-day duration of not feeling well, nausea vomiting and anorexia. ED work up shows leukocytosis with WBC 20 1.1K, CT studies finding of retropharyngeal and retroperitoneal air. Patient is being transferred to the main hospital. General surgeon Dr. Douglas is been consulted. Acute diverticulitis Severe Sepsis on admission Intra-abdominal infection secondary to perforated diverticulitis. VRE and Klebsiella. Postoperative colectomy and sigmoid resection with colostomy on 07/28. With intra abdominal leak from large diverticular abscess Persistent Leukocytosis secondary to infection. -With severe sepsis on admission tachycardia, leukocytosis, diverticulitis, acute kidney injury on admission -Due to intra-abdominal infection sepsis continue. Antibiotics per ID recommendations Received vancomycin, Zosyn, fluconazole Stop vancomycin. Continue piperacillin/tazobactam for Klebsiella coverage. Stop Diflucan. Started on Zyvox for VRE coverage. Monitor white blood cell count and clinical improvement. WBCs are trending down Retropharyngeal air Intraperitoneal air General surgery consulted. Discussed with Dr. Douglas who will see patient tonight. Continue IV fluid. Continue morphine for pain. Continue Zosyn 4.5 g every 6 hours for any gram-negative and anaerobic infection = 07/23. Vascular surgery following. Appreciate assistance. Retropharyngeal air likely secondary to air tracked from diverticular perforation. Appreciate vascular surgery assistance = 07/24. Repeat CT abdomen with increase in intraperitoneal air. Management as per vascular surgery. Appreciate assistance. = 07/25. Gastroenterology following. Planning for EGD to rule out upper GI rupture. Vascular surgery following. Appreciate assistance. = 07/26. EGD yesterday negative for upper GI perforation. Vascular surgery following. Appreciate assistance. = 07/27. Gastrografin enema pending. Abdomen prior due to anxiety. = 07/28. Gastrografin enema shows leakage from large bowel. Status post bowel prep and plan for surgery today. = 07/29. Postoperative partial colectomy with colostomy performed 07/28. Appreciate surgical assistance. Continue to monitor. Severe persistent hypokalemia, resolving Hypophosphatemia Hyperchloremia Hypernatremia Change IV fluids to half saline, sodium improving. Received potassium phosphate by IV, potassium bicarb supplement. Continue to monitor electrolytes and replenish as needed. Severe protein calorie malnutrition. Patient with very low albumin. Consult steel fabricator. Suspected adrenal insufficiency. = Home dose of 7.5 mg of prednisone daily (divided TID) = Currently on hydrocortisone 25 mg 3 times daily. CAD s/p CABG Hypertension -Holding anti-coagulation due to likely need for surgical intervention. cont to hold lisinopril. Enalapril IV as needed for systolic blood pressure over 180. Continue to monitor. = 10-year aspirin given history of CAD. Anasarca Low albumin. BNP only in the 200s. Monitor fluid status closely. Encourage protein intake when tolerating by mouth. Probable acute kidney injury Resolved. Insomnia. Improved with Valium. Anxiety. Treating insomnia as above Full code. SCDs. Discharge Planning: Pending improvement and clearance by consultants. DCd NG tube. Advanced diet per surgeon to regular diet. Has a stoma and 2 AAMIR drains. Plan to remove drains per surgeon With severe electrolytes abnormalities replacing electrolytes and continue to monitor GLOST TILE SORTER removed 08/04. On p.o. pain medications rehab versus home with home health. Patient wants home health. We will need ID and surgeon clearance. Will consult wound care for education for stoma care as outpatient Home health ordered. May need rehab depending on hospital course. Discussed with the patient, nurse (1) Diverticulitis of colon with perforation Qualifiers: Diverticulitis bleeding: unspecified bleeding status Qualified Code(s): K57.20 - Diverticulitis of large intestine with perforation and abscess without bleeding (2) Sepsis Qualifiers: Sepsis type: sepsis due to unspecified organism Qualified Code(s): A41.9 - Sepsis, unspecified organism
[2018-08-07] MEDS: Morphine Inj 4 MG/ML Vial IV.PUSH PRN ×3 (04:52→13:45)
[2018-08-07] MEDS: Pantoprazole Inj 40 MG Vial IV.PUSH SCH (09:28)
[2018-08-07] MEDS: Hydrocortisone Sod Succinate 100 MG Vial IV.PUSH SCH ×2 (09:29→17:10)
[2018-08-07] MEDS: Folic Acid 1 MG Tablet PO SCH (09:30)
[2018-08-07] MEDS: Enoxaparin Inj 30 MG/0.3 ML Syringe SQ SCH ×2 (09:30→21:38)
[2018-08-07] MEDS: Lisinopril 20 MG Tablet PO SCH (09:30)
[2018-08-07] MEDS: Sodium Chloride 0.9% 2 ML Flush BID IV.FLUSH SCH ×2 (09:36→21:39)
[2018-08-07] MEDS: hydrALAZINE 50 MG Tablet PO SCH ×3 (09:37→17:11)
--- NOTE | 2018-08-07 14:57 | P.PNWCN ---
Wound Care Nurse Consult Description: Received new ostomy teaching consult for new ileostomy Communicated with: MARYAN bowman, patient and patient's spouse Recommendation: Empty pouch when 1/3 to 1 /2 full. Do not cut moldable appliances. Hold ~30 to ~60 seconds of pressure once new appliance has been applied. Change ileostomy appliance every 3 to 5 days or PRN if leaking occurs. May use raj seal for fill in any gaps or creases to peristomal skin Do not reinforce appliance with tape, if leaking please remove and apply new appliance. Monitor for s/s of dehydration Monitor stoma appearance and output. Bowel Diversion Stoma - Bowel Stoma Right Lower Abdomen Stoma Edema: No Stoma Diameter: 32 (~32mm or ~1 1/4 inches) Stoma Appearance: Beefy Red, Protruding, Round Loop Supporting Eliseo: No Collection Device: Two-piece Wafer Size: 1 3/4 Moldable 45mm Avril-Stomal Surrounding Tissue Sensation Description: No Symptoms - Additional Information Additional Information: Patient seen for new ostomy teaching for ileostomy. Surgery for ileostomy occurred on 07/29. Patient's was in room with patient for teaching. Patient had ileostomy appliance changed yesterday. Instructional Assistant inspected appliance for leaking, no leaks are noted at this time. Stoma is visible through transparent two piece pouching system and presents round, red and protruding. Emptied ~ 25 ml of effluent that is brown and paste like from pouch. Measurements of stoma were approximated due to pouching system in place. Please measure stoma with next appliance change using the paper measuring guide in room. Patient and patient's spouse were instructed on ostomy surgery, common complications (dehydration), how often to change appliance, pouching systems, dietary concerns, and when to empty pouch. Will follow up with patient tomorrow for continued teaching.
--- NOTE | 2018-08-07 15:49 | P.PNVS ---
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 As noted in my original consultation I evaluate the patient carefully and he certainly did not appear clinically ill as most patients with Boerhaave syndrome would. Patients with Boerhaave syndrome I usually sweating, pale almost catatonic in chest pain and guarding in all 4 quadrants Those patients deteriorate very rapidly and unless surgery is performed they dying a very short period of time This gentleman appeared quite comfortable with mild abdominal pain and clearly not septic Therefore the remaining diagnoses were possible rupture of a Zenker's diverticulum or an intra-abdominal source. Esophageal swallow clearly shows clean esophagus without any lesions or leaks. On the other hand patient does have some thickening of the descending colon and proximal sigmoid as well as tracking air in the retroperitoneum therefore working diagnosis should be perforated diverticulum of the proximal sigmoid colon with tracking into the retroperitoneum and higher up into the chest Today abdomen is soft with active bowel sounds and tender in the left hemiabdomen Patient states the tenderness started last night White count is normalizing and left shift is receding Would keep on IV antibiotics will advance diet and repeat CT scan of the abdomen and pelvis on After that if patient does well he can go home on oral antibiotics follow-up with the gastroenterology for repeat colonoscopy in about a month and depending on the findings likelihood is we will schedule him for left colon/sigmoid elective resection In the face of retroperitoneal perforation dissection this is not the type of diverticulitis that should be left and only treated medically likely due for majority of diverticular disease these days 07/24/2018 Abdomen is soft active bowel sounds no rebound no guarding no masses Tender in the left midabdomen at this time Patient is greatly improved clinically and leukocytosis is resolved At this point working diagnosis is definitely sigmoid/descending colon diverticulitis with retroperitoneal perforation We will repeat CT scan of the abdomen and pelvis and see what this looks like but now with oral contrast All things equal barring any surprises clinically or diagnostically, patient can be advanced to low residue diet after the CT scan and probably discharged on oral antibiotics tomorrow We will keep on IV antibiotics for at least another day On the other hand if the CT scan reveals any surprises this may change the course of therapy and approach Addendum Patient underwent CT of abdomen and pelvis with IV and p.o. contrast which reveals reduction and near disappearance of the air in the paraesophageal area however now patient has fairly large pneumoperitoneum and air in the retroperitoneum. There is some abnormality and irregularity of the barium collection and descending colon and I still think that this is the source of patient's perforation. Nonetheless with this amount of air I believe EGD is warranted to make sure patient does not have a posterior duodenal or gastric ulcer which could cause the same Spoken Dr. Kenney about the case and spoken to Dr. Vines who will go ahead with EGD. If patient does not have a posterior penetrating or perforating ulcer which I do not think will be the case then patient will need colon resection at this admission because he is a continuous leak and I discussed this at length with the patient 07/25/2018 Patient is awake alert oriented feels well As the swelling of the bowel decreases I believe patient will pass gas and have normal bowel movements Upper endoscopy did not reveal any significant findings except some gastritis so clearly there is coming from the left colon posterior perforation Well CT scan appears to be very dramatic patient is doing well and clinically stable As always these residents with no not operating CT scans and laboratory studies but rather on patients. This patient appears to be clinically stable and considering the significance and complexity of surgery I am certainly hard pressed to operate at this time In the best case scenario patient should be allowed to cool down have repeat CAT scan if that shows more no residual free air, surgery will be mandatory In the meantime will place patient on clear liquids and see how he does 07/26/2018 Patient is awake alert and oriented Abdomen is soft active bowel sounds slightly distended Tolerating p.o. diet passing gas having bowel movements EGD revealed some gastritis but clearly no source of perforation so at this time left colon is the culprit and the working diagnosis is that of small perforated area of the left colonic diverticulosis Patient is clinically doing very well and I am hard pressed to offer him surgery at this point Will repeat CT scan of the abdomen and pelvis tomorrow and possibly do barium enema Pending on this we will decide if this is something we should address now or allow patient to call down and address electively On one hand it is hard to watch a patient have a free air in the abdomen and do nothing but on the other hand patient is clinically stable with normal white count although with left shift so it is hard to make a case to do surgery in this clinical setting Agree with Dr. Vines and medicine 07/27/2018 Patient is awake alert and oriented Today underwent Gastrografin enema exam which reveals leakage of contrast outside the lumen of the bowel probably into a large abscess cavity which would not be the worst thing but then after that it leaks in the retroperitoneum and out into the free mesenteric space Patient is now more distended and is starting to develop some guarding in the left mid abdomen Increased tenderness today Based on the clinical findings history and progress of this patient's and well as the diagnostic studies including CT scan and most recently the Gastrografin enema it is clear that the patient's conservative therapy has failed and at this point patient requires surgery I have discussed this with patient in length and all the ins and outs of the same have been discussed Patient is scheduled tomorrow for a left colon resection with primary anastomosis and possible but unlikely colostomy Patient is for most part cleaned out considering that he received p.o. contrast followed by now Gastrografin however I will give him another 2 L of GoLYTELY to completely wash him out For surgery tomorrow 07/29/2018 Patient is status post left extended colectomy sigmoid resection with a low anterior anastomosis and protective diverting ileostomy for perforated diverticulitis with a large diverticular abscess with an intra-abdominal leak Postoperatively patient is doing well Abdomen is soft with few bowel sounds Incision is clean and dry AAMIR drain is serosanguineous from the pelvic and left paracolic drain Plan Out of bed with binder Decrease IV fluid rate Keep [place] considering low anterior anastomosis and probable inability to urinate for the next few days on his own Patient is to remain n.p.o. except for ice chips few meds and the NG tube is to remain in place We will keep patient for another day in the ICU and then transferred to floor Patient is to remain on IV antibiotics including vancomycin and Zosyn and Diflucan and ID consult is pending 07/30/2018 Patient doing well Incision is clean and dry abdomen is soft with a few bowel sounds AAMIR drainage is serosanguineous Plan Keep n.p.o. 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 pump which is not necessary for pain management anymore and in addition is causing patient to have prolonged ileus Will advance to full liquids Needs to ambulate be out of bed Abdominal cultures consistent with VRE Patient on Zyvox and Zosyn and infectious disease expertise and help greatly appreciated 08/05/2018 Patient doing well at this time Incision is clean and dry and abdomen is soft with active bowel sounds Ileus is resolving judging by diverting ileostomy which is functioning and bag is full of air and fluid Soon patient will start passing gas below as well Advance diet Plan discharge patient Sunday08/06/2018 Incision clean and dry, patient doing very well abdomen is soft active bowel sounds passed gas distally and through the ileostomy Patient is out of bed ambulating better tolerating diet Ileus is resolving however has not resolved completely yet Depending on patient's progress I will probably discharge him tomorrow for when Zyvox is completed 08/07/2018 Patient doing well at this time Abdomen is soft active bowel sounds Patient is passing gas into the diverting ileostomy and passing gas through the rectum Incision is clean and dry DC both AAMIR drains today and will stop morphine to see if patient does okay on Percocet only Patient really needs to ambulate with a binder as much as he can so he can get his strength back Can be discharged tomorrow Objective Vital Signs / I&O: Vital Signs 08/06/18 16:00 08/06/18 20:00 08/07/18 00:00 Temperature 97.8 F 98.8 F 98.3 F Pulse Rate 86 69 76 Respiratory Rate 16 17 16 Blood Pressure 130/60 148/75 H 116/64 Pulse Oximetry 97 94 L 96 08/07/18 08:00 08/07/18 08:26 08/07/18 12:00 Temperature 97.6 F 97.6 F 98.4 F Pulse Rate 74 74 85 Respiratory Rate 16 16 16 Blood Pressure 131/66 131/66 140/65 Pulse Oximetry 97 97 97 Intake & Output 08/06/18 08/07/18 08/07/18 18:59 06:59 18:59 Intake Total 1200 / 1200 1080 / 1080 Output Total 950 / 950 1385 / 1385 Balance 250 / 250 -305 / -305 Weight 82.3 kg Intake: IV 600 / 600 Zyvox 600 mg Premix 300 ML @ 600 / 600 300 mls/hr IV.SIG Q12H DEMETRIUS Rx#: [id number] Oral 1200 / 1200 480 / 480 Output: Urine 950 / 950 1350 / 1350 Wound Drainage 35 / 35 # 1 Left Abdomen AAMIR Drain 5 / 5 # 2 Left Abdomen AAMIR Drain 30 / 30 Other: # Bowel Movements 0
--- NOTE | 2018-08-07 16:08 | P.PNIM ---
Subjective Interval history: Patient in no acute distress. He does not have any other complaints. Physical Exam Vital signs: Vital Signs 08/06/18 16:00 08/06/18 20:00 08/07/18 00:00 Temperature 97.8 F 98.8 F 98.3 F Pulse Rate 86 69 76 Respiratory Rate 16 17 16 Blood Pressure 130/60 148/75 H 116/64 Pulse Oximetry 97 94 L 96 08/07/18 08:00 08/07/18 08:26 08/07/18 12:00 Temperature 97.6 F 97.6 F 98.4 F Pulse Rate 74 74 85 Respiratory Rate 16 16 16 Blood Pressure 131/66 131/66 140/65 Pulse Oximetry 97 97 97 Intake & Output 08/06/18 08/07/18 08/07/18 18:59 06:59 18:59 Intake Total 1200 / 1200 1080 / 1080 Output Total 950 / 950 1385 / 1385 Balance 250 / 250 -305 / -305 Weight 82.3 kg Intake: IV 600 / 600 Zyvox 600 mg Premix 300 ML @ 600 / 600 300 mls/hr IV.SIG Q12H DEMETRIUS Rx#: [id number] Oral 1200 / 1200 480 / 480 Output: Urine 950 / 950 1350 / 1350 Wound Drainage 35 / 35 # 1 Left Abdomen AAMIR Drain 5 / 5 # 2 Left Abdomen AAMIR Drain 30 / 30 Other: # Bowel Movements 0 Narrative: alert and oriented S1 S2 Abdomen is soft, two drains to left abdomen present. Colostomy intact 1+ pitting edema of b/l lower exts up to the shins no neurological deficits. - Urinary Catheter Management Indwelling Urethral Catheter Cath placed during this visit: yes Reason for continuing: Hourly intake/output Insertion date: 07/28/18 Results - Labs CBC & Chem 7: 08/06/18 06:15 08/03/18 05:13 Assessment and Plan - Assessment (1) Diverticulitis of colon with perforation Code(s): K57.20 - Diverticulitis of large intestine with perforation and abscess without bleeding Status: Acute (2) Sepsis Code(s): A41.9 - Sepsis, unspecified organism Status: Acute - Plan This patient is a 68-year-old male with a diagnosis of hypertension, coronary artery disease who presented to the emergency department on 07/22 due to a 1 week history of nausea, vomiting. In the emergency department he showed a significant leukocytosis CT scan showed retropharyngeal and retroperitoneal air. 1. Severe sepsis secondary to acute perforated diverticulitis. VRE and Klebsiella 2. Status post colectomy and sigmoid resection with colostomy on 07/28 3. Large diverticular abscess. Patient is afebrile overnight. He still has an elevated WBC count however is downtrending. Continue PO cefuroxime as per ID recs for 8 more days. Continue zyvox for another 8 days. Infectious disease is following. Continue pain medications as needed. I will follow-up with surgery for the recommendations. Drains are still currently in place. 4. Retropharyngeal and intraperitoneal air The findings on the CT scan were likely secondary to the diverticular perforation. Vascular surgery following the patient. 5. Adrenal insufficiency Patient was on prednisone at home. Currently he is on hydrocortisone 25 mg 3 times a day. We will likely switch back to p.o. prednisone tomorrow. 6. Coronary artery disease status post CABG Continue aspirin. Continue statin. I reviewed the patient's medication list, it is unclear why the patient is not on beta-key. 7. Hypertension Continue current medication regimen. Lovenox for DVT prophylaxis. (1) Diverticulitis of colon with perforation Qualifiers: Qualified Code(s): K57.20 - Diverticulitis of large intestine with perforation and abscess without bleeding (2) Sepsis Qualifiers: Qualified Code(s): A41.9 - Sepsis, unspecified organism
[2018-08-08] MEDS: Hydrocortisone Sod Succinate 100 MG Vial IV.PUSH SCH ×2 (00:28→09:53)
[2018-08-08 06:33] LABS: Carbon Dioxide 29.6 meq/L (21.0-32.0); Magnesium 1.9 mg/dL (1.5-2.5); Potassium 3.7 meq/L (3.5-5.1)
--- NOTE | 2018-08-08 08:54 | P.DS ---
Date of admission: 07/22/18 16:51 Primary care physician: Mayela Mondragon Brief History from admission: Mr. Moreira a pleasant 68-year-old male with a history of CAD status post CABG, hypertension, rheumatoid arthritis who presented to the emergency department due to generalized illness, nausea and vomiting. On , 2017, patient started having cold symptoms. He felt chills. Around 8 PM he went to sleep and slept most of the day on 07/19/2018. He continued to have weakness and anorexia. He started developing nausea vomiting on 07/20/2018. He did not have any violent vomiting. He had vomiting and a lot of gagging. He had small bowel movements but denies any hematochezia or melena. No diarrhea or constipation. The patient was found to have intra- abdominal air found on imaging and was subsequently admitted for severe sepsis secondary to colonic diverticular perforation. DS: Diagnosis - Discharge Diagnosis (1) Diverticulitis of colon with perforation Status: Acute (2) Sepsis Status: Acute DS: Summary Hospital Course: 1. Severe sepsis secondary to acute perforated diverticulitis. VRE and Klebsiella 2. Status post colectomy and sigmoid resection with colostomy on 07/28 3. Large diverticular abscess. This patient is a 68-year-old male with a diagnosis of hypertension, coronary artery disease who presented to the emergency department on 07/22 due to a 1 week history of nausea, vomiting. In the emergency department he showed a significant leukocytosis CT scan showed retropharyngeal and retroperitoneal air. The patient was subsequently found to have colonic diverticular perforation which led to severe sepsis. Cultures grew VRE and Klebsiella. The surgical team was consulted to evaluate the patient. The patient underwent colectomy and sigmoid resection with colostomy on 07/28/2018. A large diverticular abscess was drained. The patient initially was febrile with an elevated WBC count. WBC count has improved and the patient has been afebrile over the past week. The patient had 2 drains in the left side of his abdomen that were removed yesterday. No significant drainage from the wounds patient currently has a drain in place. Colostomy bag is in place with brown colored stool in the ostomy bag. The patient can continue antibiotics for 1 more week with p.o. cefuroxime and Zyvox. Scripts were given to the patient. The patient is stable to be discharged home. He can follow-up with his primary care doctor in the next 1 week. He should also follow-up with vascular surgery in the next couple of weeks. [place] are still present in the mid abdomen. Patient is tolerating p.o. diet without any difficulties. He will be discharged home today with home health. Instructions on how to manage the ostomy were given to the patient and his in detail. Patient was evaluated by physical therapy and he will be given a frontwheel walker on discharge. 4. Questionable adrenal insufficiency 5. Rheumatoid arthritis Patient will be discharged on prednisone 5 mg p.o. 3 times a day. Previously the patient was taking 2.5 mg p.o. 3 times a day however during the hospitalization his steroids dose was increased given his initial presentation. After discharge can follow-up with his primary care physician and the steroid dose can be decreased as tolerated. Continue methotrexate for rheumatoid arthritis. 6. Coronary artery disease status post CABG Continue aspirin, statin. The patient follow-up with his primary care physician and if his blood pressure and heart rate tolerated he should also be started on a beta-key. - Time Spent with Patient Total time spent providing and/or coordinating discharge services: Greater than 30 minutes - Quality: VTE Deep Vein Thrombosis/Pulmonary Embolism Present on Admission: No Exam Vital signs: Vital Signs 08/07/18 12:00 08/07/18 16:00 08/07/18 20:00 Temperature 98.4 F 98.4 F 98.9 F Pulse Rate 85 91 H 75 Respiratory Rate 16 16 20 Blood Pressure 140/65 127/64 142/65 H Pulse Oximetry 97 96 97 08/08/18 00:00 08/08/18 08:00 Temperature 97.9 F 98.1 F Pulse Rate 64 67 Respiratory Rate 18 17 Blood Pressure 130/64 132/66 Pulse Oximetry 97 97 Intake & Output 08/07/18 08/08/18 08/08/18 18:59 06:59 18:59 Intake Total 1400 / 1400 300 / 300 Output Total 900 / 900 1490 / 1490 Balance 500 / 500 -1190 / -1190 Weight 80.4 kg Intake: IV 300 / 300 300 / 300 Zyvox 600 mg Premix 300 ML @ 300 / 300 300 / 300 300 mls/hr IV.SIG Q12H DEMETRIUS Rx#: [id number] Oral 1100 / 1100 Output: Urine 900 / 900 1050 / 1050 Stool Amount (Stoma) 400 / 400 Right Lower Abdomen 400 / 400 Wound Drainage 40 / 40 # 1 Left Abdomen AAMIR Drain 0 / 0 # 2 Left Abdomen AAMIR Drain 40 / 40 Other: Date of Last Bowel Movement 08/07/18 # Bowel Movements 0 Narrative: alert and oriented S1 S2 Abdomen is soft, drains removed, bandage in place without significant drainage. Colostomy in place with brown stool in the bag. 1+ pitting edema of b/l lower exts up to the shins no neurological deficits. Results Procedures completed during hospitalization: Status post colostomy placement and intra-abdominal colonic abscess drainage. Completed studies during hospitalization: Pending at discharge 07/28/18 08:14 Surgical [PTH] Routine Labs on day of discharge: Labs from last 24 hours 08/08/18 04:42 Sodium 140 Potassium 3.7 Chloride 107 Carbon Dioxide 29.6 Anion Gap 3 L BUN 10 Creatinine 0.87 Estimated GFR 87 L Random Glucose 100 Calcium 8.0 L Magnesium 1.9 Preliminary micro results at discharge 07/28/18 15:57 Mycobacterial Culture - Preliminary Other No growth in 1 week 07/28/18 15:57 Fungal Culture - Preliminary Other No growth in 1 week 07/28/18 15:42 Fungal Culture - Preliminary Other No growth in 1 week 07/28/18 15:42 Mycobacterial Culture - Preliminary Other No growth in 1 week - Impressions ITS Impressions Upper GI/Barium Swallow X-Ray 07/22/18 00:00 CONCLUSION: No evidence of esophageal leak. Chest X-Ray 07/22/18 13:26 CONCLUSION: There is subcutaneous emphysema in the neck bilaterally of uncertain etiology. Chronic interstitial changes within the pulmonary parenchyma. Foot X-Ray 07/22/18 14:00 CONCLUSION: Negative for fracture or dislocation. Followup in 7-10 days is suggested if symptoms persist. Soft Tissue Neck CT 07/22/18 14:00 CONCLUSION: 1. Subcutaneous and retropharyngeal air. Most likely sources upper airway 2. Findings have been discussed with Dr. Hendricsk on today's date. Chest CT 07/22/18 14:12 CONCLUSION: 1. There is extensive subcutaneous emphysema extending throughout the neck, extending along the posterior mediastinum and esophagus. There is limited imaging of the upper abdomen. This demonstrates numerous punctate areas of free intraperitoneal air. Dedicated CT imaging of the abdomen is warranted. No definite source for this is seen on the CT imaging of the chest. Abdomen/Pelvis CT 07/24/18 00:00 . CONCLUSION: 1. Large amount of free intraperitoneal air most likely from an upper abdominal source, distal esophagus or stomach. Splenic flecture, would be the other consideration. 2. There is no extravasation of contrast 3. Pelvis is unremarkable. 4. Findings were discussed with Dr. Misael Nicole w/[facility] 07/27/18 00:00 CONCLUSION: Significantly abnormal exam. There is extraluminal Gastrografin beginning from the mid descending colon which originally appears to be contained within this region during the course of the fluoroscopic examination, however, on post exam view with overhead film the Gastrografin is seen to extend beyond this area of confinement superiorly into the left upper quadrant where it remains ill- defined within the mesentery. Discharge Plan - Discharge Disposition Patient Disposition: W/Home Health Service - Discharge Condition Condition: Good - Discharge Order Discharge Orders: Discharge Order (Routine); Ordered 08/08/18 Ordered By: Rica Valdez - Physicians Team Attending Provider: Rica Valdez Other Providers: Anahy Gilbert MD ; Osmel Vines MD ; Alvarez Oro MD
--- NOTE | 2018-08-08 08:55 | P.DCO ---
- Physical Therapy Order: Evaluate and treat - Home Health Nursing Order: Medical education, Medication education-adverse effect, Wound care and dressing changes, Nursing assessment with vital signs - Case Management Consult Case Management Consult-Home Health: Yes - Certification I have seen patient Zach Moreira on 08/08/18. My clinical findings support the need for the requested home health care services because: Deconditioned with increased weakness I certify that my clinical findings support that this patient is homebound because: Post-op weakness
[2018-08-08] MEDS: Enoxaparin Inj 30 MG/0.3 ML Syringe SQ SCH (09:37)
[2018-08-08] MEDS: Lisinopril 20 MG Tablet PO SCH (09:38)
[2018-08-08] MEDS: hydrALAZINE 50 MG Tablet PO SCH ×2 (09:38→14:38)
[2018-08-08] MEDS: Folic Acid 1 MG Tablet PO SCH (09:39)
[2018-08-08] MEDS: Sodium Chloride 0.9% 2 ML Flush BID IV.FLUSH SCH (09:40)
--- NOTE | 2018-08-08 11:40 | P.PNVS ---
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 As noted in my original consultation I evaluate the patient carefully and he certainly did not appear clinically ill as most patients with Boerhaave syndrome would. Patients with Boerhaave syndrome I usually sweating, pale almost catatonic in chest pain and guarding in all 4 quadrants Those patients deteriorate very rapidly and unless surgery is performed they dying a very short period of time This gentleman appeared quite comfortable with mild abdominal pain and clearly not septic Therefore the remaining diagnoses were possible rupture of a Zenker's diverticulum or an intra-abdominal source. Esophageal swallow clearly shows clean esophagus without any lesions or leaks. On the other hand patient does have some thickening of the descending colon and proximal sigmoid as well as tracking air in the retroperitoneum therefore working diagnosis should be perforated diverticulum of the proximal sigmoid colon with tracking into the retroperitoneum and higher up into the chest Today abdomen is soft with active bowel sounds and tender in the left hemiabdomen Patient states the tenderness started last night White count is normalizing and left shift is receding Would keep on IV antibiotics will advance diet and repeat CT scan of the abdomen and pelvis on After that if patient does well he can go home on oral antibiotics follow-up with the gastroenterology for repeat colonoscopy in about a month and depending on the findings likelihood is we will schedule him for left colon/sigmoid elective resection In the face of retroperitoneal perforation dissection this is not the type of diverticulitis that should be left and only treated medically likely due for majority of diverticular disease these days 07/24/2018 Abdomen is soft active bowel sounds no rebound no guarding no masses Tender in the left midabdomen at this time Patient is greatly improved clinically and leukocytosis is resolved At this point working diagnosis is definitely sigmoid/descending colon diverticulitis with retroperitoneal perforation We will repeat CT scan of the abdomen and pelvis and see what this looks like but now with oral contrast All things equal barring any surprises clinically or diagnostically, patient can be advanced to low residue diet after the CT scan and probably discharged on oral antibiotics tomorrow We will keep on IV antibiotics for at least another day On the other hand if the CT scan reveals any surprises this may change the course of therapy and approach Addendum Patient underwent CT of abdomen and pelvis with IV and p.o. contrast which reveals reduction and near disappearance of the air in the paraesophageal area however now patient has fairly large pneumoperitoneum and air in the retroperitoneum. There is some abnormality and irregularity of the barium collection and descending colon and I still think that this is the source of patient's perforation. Nonetheless with this amount of air I believe EGD is warranted to make sure patient does not have a posterior duodenal or gastric ulcer which could cause the same Spoken Dr. Kenney about the case and spoken to Dr. Vines who will go ahead with EGD. If patient does not have a posterior penetrating or perforating ulcer which I do not think will be the case then patient will need colon resection at this admission because he is a continuous leak and I discussed this at length with the patient 07/25/2018 Patient is awake alert oriented feels well As the swelling of the bowel decreases I believe patient will pass gas and have normal bowel movements Upper endoscopy did not reveal any significant findings except some gastritis so clearly there is coming from the left colon posterior perforation Well CT scan appears to be very dramatic patient is doing well and clinically stable As always these residents with no not operating CT scans and laboratory studies but rather on patients. This patient appears to be clinically stable and considering the significance and complexity of surgery I am certainly hard pressed to operate at this time In the best case scenario patient should be allowed to cool down have repeat CAT scan if that shows more no residual free air, surgery will be mandatory In the meantime will place patient on clear liquids and see how he does 07/26/2018 Patient is awake alert and oriented Abdomen is soft active bowel sounds slightly distended Tolerating p.o. diet passing gas having bowel movements EGD revealed some gastritis but clearly no source of perforation so at this time left colon is the culprit and the working diagnosis is that of small perforated area of the left colonic diverticulosis Patient is clinically doing very well and I am hard pressed to offer him surgery at this point Will repeat CT scan of the abdomen and pelvis tomorrow and possibly do barium enema Pending on this we will decide if this is something we should address now or allow patient to call down and address electively On one hand it is hard to watch a patient have a free air in the abdomen and do nothing but on the other hand patient is clinically stable with normal white count although with left shift so it is hard to make a case to do surgery in this clinical setting Agree with Dr. Vines and medicine 07/27/2018 Patient is awake alert and oriented Today underwent Gastrografin enema exam which reveals leakage of contrast outside the lumen of the bowel probably into a large abscess cavity which would not be the worst thing but then after that it leaks in the retroperitoneum and out into the free mesenteric space Patient is now more distended and is starting to develop some guarding in the left mid abdomen Increased tenderness today Based on the clinical findings history and progress of this patient's and well as the diagnostic studies including CT scan and most recently the Gastrografin enema it is clear that the patient's conservative therapy has failed and at this point patient requires surgery I have discussed this with patient in length and all the ins and outs of the same have been discussed Patient is scheduled tomorrow for a left colon resection with primary anastomosis and possible but unlikely colostomy Patient is for most part cleaned out considering that he received p.o. contrast followed by now Gastrografin however I will give him another 2 L of GoLYTELY to completely wash him out For surgery tomorrow 07/29/2018 Patient is status post left extended colectomy sigmoid resection with a low anterior anastomosis and protective diverting ileostomy for perforated diverticulitis with a large diverticular abscess with an intra-abdominal leak Postoperatively patient is doing well Abdomen is soft with few bowel sounds Incision is clean and dry AAMIR drain is serosanguineous from the pelvic and left paracolic drain Plan Out of bed with binder Decrease IV fluid rate Keep [place] considering low anterior anastomosis and probable inability to urinate for the next few days on his own Patient is to remain n.p.o. except for ice chips few meds and the NG tube is to remain in place We will keep patient for another day in the ICU and then transferred to floor Patient is to remain on IV antibiotics including vancomycin and Zosyn and Diflucan and ID consult is pending 07/30/2018 Patient doing well Incision is clean and dry abdomen is soft with a few bowel sounds AAMIR drainage is serosanguineous Plan Keep n.p.o. but for some icicles and ice chips Keep NG tube to suction Transfer to floor Once patient passes gas through the ileostomy will start on diet ID help is greatly appreciated 08/04/2018 Patient doing very well Leukocytosis slowly resolving Incision clean and dry AAMIR drain serosanguineous and will start pulling drains tomorrow Abdomen soft hypoactive bowel sounds somewhat distended and ileostomy working fine We will stop HAND LE[employer]ER [employer]IMMER pump which is not necessary for pain management anymore and in addition is causing patient to have prolonged ileus Will advance to full liquids Needs to ambulate be out of bed Abdominal cultures consistent with VRE Patient on Zyvox and Zosyn and infectious disease expertise and help greatly appreciated 08/05/2018 Patient doing well at this time Incision is clean and dry and abdomen is soft with active bowel sounds Ileus is resolving judging by diverting ileostomy which is functioning and bag is full of air and fluid Soon patient will start passing gas below as well Advance diet Plan discharge patient Sunday08/06/2018 Incision clean and dry, patient doing very well abdomen is soft active bowel sounds passed gas distally and through the ileostomy Patient is out of bed ambulating better tolerating diet Ileus is resolving however has not resolved completely yet Depending on patient's progress I will probably discharge him tomorrow for when Zyvox is completed 08/07/2018 Patient doing well at this time Abdomen is soft active bowel sounds Patient is passing gas into the diverting ileostomy and passing gas through the rectum Incision is clean and dry DC both AAMIR drains today and will stop morphine to see if patient does okay on Percocet only Patient really needs to ambulate with a binder as much as he can so he can get his strength back Can be discharged tomorrow 08/08/2018 Abdomen is soft and active bowel sounds are present Both the diverting ileostomy and low anterior anastomosis are patent and patient is passing gas distally and intestinal contents proximally He will end up passing stool in both orifices eventually and in about 2 months we are going to close the diverting colostomy Patient should follow-up in my office in about a week for staple removal and evaluation Should go home with a binder considering his body habitus he is a fairly significant risk of ventral hernia Objective Vital Signs / I&O: Vital Signs 08/07/18 12:00 08/07/18 16:00 08/07/18 20:00 Temperature 98.4 F 98.4 F 98.9 F Pulse Rate 85 91 H 75 Respiratory Rate 16 16 20 Blood Pressure 140/65 127/64 142/65 H Pulse Oximetry 97 96 97 08/08/18 00:00 08/08/18 08:00 Temperature 97.9 F 98.1 F Pulse Rate 64 67 Respiratory Rate 18 17 Blood Pressure 130/64 132/66 Pulse Oximetry 97 97 Intake & Output 08/07/18 08/08/18 08/08/18 18:59 06:59 18:59 Intake Total 1400 / 1400 300 / 300 Output Total 900 / 900 1490 / 1490 Balance 500 / 500 -1190 / -1190 Weight 80.4 kg Intake: IV 300 / 300 300 / 300 Zyvox 600 mg Premix 300 ML @ 300 / 300 300 / 300 300 mls/hr IV.SIG Q12H DEMETRIUS Rx#: [id number] Oral 1100 / 1100 Output: Urine 900 / 900 1050 / 1050 Stool Amount (Stoma) 400 / 400 Right Lower Abdomen 400 / 400 Wound Drainage 40 / 40 # 1 Left Abdomen AAMIR Drain 0 / 0 # 2 Left Abdomen AAMIR Drain 40 / 40 Other: Date of Last Bowel Movement 08/07/18 # Bowel Movements 0 Laboratory Results - last 24 hr 08/08/18 04:42 Sodium 140 Potassium 3.7 Chloride 107 Carbon Dioxide 29.6 Anion Gap 3 L BUN 10 Creatinine 0.87 Estimated GFR 87 L Random Glucose 100 Calcium 8.0 L Magnesium 1.9
--- NOTE | 2018-08-08 12:11 | P.PNWCN ---
Wound Care Nurse Consult Description: Patient seen for follow up of ostomy care, management and teaching Communicated with: MARYAN Mackey, MARYAN Valderrama, patient and patient's spouse Recommendation: Empty pouch when 1/3 to 1 /2 full. Do not cut moldable appliances. Hold ~30 to ~60 seconds of pressure once new appliance has been applied. Change ileostomy appliance every 3 to 5 days or PRN if leaking occurs. May use raj seal for fill in any gaps or creases to peristomal skin Do not reinforce appliance with tape, if leaking please remove and apply new appliance. Monitor for s/s of dehydration Monitor stoma appearance and output. Bowel Diversion Stoma - Bowel Stoma Right Lower Abdomen Stoma Edema: No Stoma Diameter: 0 (1 inch tall, 1 1/2 inches wide) Stoma Appearance: Beefy Red, Oval, Protruding Loop Supporting Eliseo: No Collection Device: Two-piece, Moldable Wafer Drainage Description: Liquid, Brown Wafer Size: 1 3/4 Moldable 45mm Stoma Care: Pouch and Wafer Changed, Skin Care Avril-Stomal Skin Appearance: Irritated and Inflammed (Minor irritation and inflamation is seen to peristomal skin from 4 to 7 o'clock) Avril-Stomal Surrounding Tissue Sensation Description: No Symptoms - Additional Information Additional Information: Patient seen for follow up of ileostomy teaching today. Pouch and wafer were changed. MARYAN Mackey in room during change. RN Narendra emptied pouch before appliance change. Removed ostomy appliance to reveal protruding oval shaped stoma that is red in color. Stoma measures 1 inch tall by 1 1/2 inch wide. Peristomal skin was cleansed with warm water and wash cloth. Patient has minor irritation from 4 to 7 o'clock to peristomal skin. Encrusted irritated peristomal skin by applying stoma powder and wiping off excess, before spraying with skin barrier film spray. Repeated encrusting process twice. Creases to peristomal skin were sealed with raj seal before moldable wafer was applied for 1 3/4 inch two piece appliance. Applied pressure for 60 seconds before snapping pouch in place. Patient tolerated procedure well. Prescription for ostomy supplies is filled out and in chart. Ostomy resource guide given to patient.
[2018-08-08] MEDS ORDERED: predniSONE 5 MG Tablet PO SCH (13:00)
[2018-08-08 14:19] VITALS: BP 112/65; PULSE 92; RESP 15; TEMP 97.6; O2SAT 100
== END 2018-08-08 18:31 | disposition home health service (06) ==
LOC: PHED 12:44 → PHEDA 16:51 → N04 18:10 → N03 07-28 16:22 → N07 07-30 21:45
PROVIDERS: ADMIT Hospitalist; ATTEND Hospitalist
PROC: SPLCTMY (ICD-10-PCS; 2018-07-28 14:35)

== ENCOUNTER 2018-08-27 12:32 | Inpatient (IN) ==
[2018-08-27] MEDS ORDERED: Piperacil/Tazo 4.5 GM Premix 4.5 GM/100 ML BAG IV.SIG SCH (13:00)
[2018-08-27] MEDS ORDERED: Sod Chloride 0.9% Inj 1,000 ML IV.SIG SCH ×3 (13:00→14:15)
--- NOTE | 2018-08-27 13:32 | XR ---
EXAM DATE: 08/27/2018 1:24 PM EST AGE/SEX: 68 years / Male INDICATIONS: Chest pain. CLINICAL DATA: This is the patient's initial encounter. Patient reports that signs and symptoms have been present for 1 day and indicates a pain score of 4/10. MEDICAL/SURGICAL HISTORY: None. None. COMPARISON: [facility], CHEST 2V PA&LAT, 07/22/2018. . FINDINGS: A single AP view of the chest demonstrates the lungs to be symmetrically aerated without evidence of mass, infiltrate or effusion. The cardiomediastinal contours are unremarkable. Osseous structures a re intact. CONCLUSION: Negative examination. Electronically signed by: Don Ellington MD Board Certified Radiologist 08/27/2018 1:31 PM EST
[2018-08-27 13:37] LABS: Baso % (Auto) 0.4 % (0.0-2.0); Eos % (Auto) 0.3 % (0.0-4.0); Hematocrit 24.4 % (39.0-51.0); Lymph % (Auto) 8.8 % (9.0-44.0); Mean Corpuscular HGB Conc 32.9 % (32.0-36.0); Mean Corpuscular Hemoglobin 32.6 pg (27.0-34.0); Mean Corpuscular Volume 98.9 fL (80.0-100.0); Mean Platelet Volume 7.7 fL (7.0-11.0); Mono # (Auto) 0.6 th/mm3 (0.0-0.9); Mono % (Auto) 5.4 % (0.0-8.0); Neut # (Auto) 9.4 th/mm3 (1.8-7.7); Neut % (Auto) 85.1 % (16.0-70.0); Platelet Count 200 th/mm3 (150-450); Red Blood Count 2.46 mil/mm3 (4.50-5.90); Red Cell Distribution Width 20.6 % (11.6-17.2); White Blood Count 11.1 th/mm3 (4.0-11.0)
--- NOTE | 2018-08-27 13:39 | ED ---
HPI General Chief complaint: Weakness Stated complaint: Chest/Abd/Sepsis Complaint Time Seen by Provider: 08/27/18 12:57 Source: patient and family Mode of arrival: ambulatory Limitations: no limitations History of Present Illness HPI Narrative: 68 y/o male presents with his with progressive generalized weakness and ill feeling. Approximately 2 weeks ago he was discharged from the hospital after he had an ileostomy with bowel removal after a perforation. He states Dr. Rutherford told him to come to the hospital as he was concerned that he was getting septic again given his symptoms. He was to be directly admitted but given his blood pressure was low they sent him here to the ER for initial evaluation. He denies any abdominal pain or any other concurrent complaints at this time. He states he feels worse when he moves around. He denies other modifying factors. He denies migration. Related Data Home Medications Medication Instructions Recorded Confirmed aspirin [Aspir-Low] 81 mg PO HS 07/22/18 08/27/18 folic acid 1 mg PO DAILY 07/22/18 08/27/18 hydralazine 50 mg PO TID 07/22/18 08/27/18 hydrocodone-acetaminophen 1 tab PO Q6H PRN 07/22/18 08/27/18 hydroxychloroquine 200 mg PO BID 07/22/18 08/27/18 magnesium 500 mg PO QAM 07/22/18 08/27/18 meloxicam 15 mg PO QPM 07/22/18 08/27/18 methotrexate sodium 8 mg PO QWEEK 07/22/18 08/27/18 omeprazole 20 mg PO QPM 07/22/18 08/27/18 lisinopril 20 mg PO DAILY 08/22/18 08/27/18 Previous Rx's Medication Instructions Recorded atorvastatin [Lipitor] 40 mg PO HS #30 tab 08/08/18 oxycodone-acetaminophen [Percocet] 1 tab PO Q4-6H PRN #12 tab 08/08/18 prednisone 5 mg PO TID #90 tab 08/08/18 levofloxacin [Levaquin] 750 mg PO DAILY 7 Days #7 tab 08/22/18 metronidazole [Flagyl] 500 mg PO BID #14 tab 08/22/18 Allergies Allergy/AdvReac Type Severity Reaction Status Date / Time No Known Allergies Allergy Uncoded 10/30/13 06:40 Review of Systems ROS: all other systems reviewed are negative PMFSH Medical History Medical History CAD (coronary artery disease) (Acute) History of infection with vancomycin resistant Enterococcus (VRE) (Acute ~) Hypertension (Acute) Kidney stones (Acute) Rheumatoid arthritis (Acute) Surgical History Surgical History H/O heart artery stent (Acute) H/O hernia repair (Acute) H/O knee surgery (Acute) H/O shoulder surgery (Acute) Hx of CABG (Acute) Social History Social History Substance History: No History of Abuse Second Hand Smoke Exposure: No Smoking Status: Never smoker Tobacco Type: Cigarettes How Often Do You Have a Drink Containing Alcohol: Never Recent Travel in [facility] within the Last 8 Weeks: No Recent Out of Country Travel within the Last 8 Weeks: No Immunization History Tetanus Immunization: Unsure Exam Narrative Exam Narrative: GENERAL: 68 y/o male in no apparent distress SKIN: Focused skin assessment warm/dry. HEAD: Atraumatic. Normocephalic. EYES: Pupils equal and round. No scleral icterus. No injection or drainage. ENT: No nasal bleeding or discharge. NECK: Trachea midline. No JVD. CARDIOVASCULAR: Regular rate and rhythm. RESPIRATORY: No accessory muscle use. Clear to auscultation. Breath sounds equal bilaterally. GASTROINTESTINAL: Abdomen soft, non-tender, nondistended. MUSCULOSKELETAL: No obvious deformities. No clubbing. No cyanosis. NEUROLOGICAL: Awake and alert. Motor grossly within normal limits. Normal speech. Course Reevaluation(s) Reevaluation #1: Patient with acute renal failure, given multiple IV fluid boluses. Blood pressure remains low but stable. Will monitor in the ICU overnight Consultations Consultation #1: dr rutherford states to admit to medicine and he will be consult in Icu Consultation #2: dr restrepo agrees to admit Initial Documented Vital Signs Temperature 97.9 F 08/27/18 12:45 Pulse Rate 111 H 08/27/18 12:45 Respiratory Rate 22 08/27/18 12:45 Blood Pressure 65/38 L 08/27/18 12:45 Last Documented Vital Signs Temperature 97.9 F 08/27/18 12:45 Pulse Rate 83 08/27/18 14:27 Respiratory Rate 17 08/27/18 14:27 Blood Pressure 82/47 L 08/27/18 14:27 Pulse Oximetry 98 08/27/18 13:48 Medical Decision Making MDM Narrative Medical decision making narrative: We will check blood work, imaging and start on Zosyn and IV fluids given hypotension Medical Screen Exam Complete: Yes Emergency Medical Condition: Yes Differential Diagnosis Differential Diagnosis: Sepsis, UTI, pneumonia, abscess Lab Data Lab results reviewed: Yes I reviewed the patient's lab results. Result diagrams: 08/27/18 13:10 08/27/18 13:10 Lab Results 08/27/18 08/27/18 08/27/18 Range/Units 13:10 13:10 13:10 WBC 11.1 H (4.0-11.0) th/mm3 RBC 2.46 L (4.50-5.90) mil/mm3 Hgb 8.0 L (13.0-17.0) gm/dL Hct 24.4 L (39.0-51.0) % MCV 98.9 (80.0-100.0) fL MCH 32.6 (27.0-34.0) pg MCHC 32.9 (32.0-36.0) % RDW 20.6 H (11.6-17.2) % Plt Count 200 (150-450) th/mm3 MPV 7.7 (7.0-11.0) fL Neut % (Auto) 85.1 H (16.0-70.0) % Lymph % (Auto) 8.8 L (9.0-44.0) % [place] % (Auto) 5.4 (0.0-8.0) % Eos % (Auto) 0.3 (0.0-4.0) % Baso % (Auto) 0.4 (0.0-2.0) % Neut # (Auto) 9.4 H (1.8-7.7) th/mm3 Lymph # (Auto) 1.0 (1.0-4.8) th/mm3 [place] # (Auto) 0.6 (0.0-0.9) th/mm3 Eos # (Auto) 0.0 (0.0-0.4) th/mm3 Baso # (Auto) 0.0 (0.0-0.2) th/mm3 WBC Differential . Differential Comment Auto diff final PT 11.1 (9.8-11.6) sec INR 1.1 Ratio APTT 31.8 H (23.4-31.7) sec Sodium 132 L (136-145) meq/L Potassium 5.8 H (3.5-5.1) meq/L Chloride 102 (98-107) meq/L Carbon Dioxide 16.3 L (21.0-32.0) meq/L Anion Gap 14 (5-15) meq/L BUN 76 H (7-18) mg/dL Creatinine 3.44 H (0.60-1.30) mg/dL Estimated GFR 18 L (>89) mL/min Random Glucose 95 (74-106) mg/dL Lactic Acid (0.4-2.0) mmol/L Calcium 8.9 (8.5-10.1) mg/dL Magnesium 2.1 (1.5-2.5) mg/dL Total Bilirubin 0.5 (0.2-1.0) mg/dL AST 28 (15-37) U/L ALT 21 (12-78) U/L Alkaline Phosphatase 79 (45-117) U/L Total Creatine Kinase (39-308) U/L CK-MB (CK-2) (0.5-3.6) ng/mL Troponin I (0.02-0.05) ng/mL Total Protein 6.7 (6.4-8.2) g/dL Albumin 2.9 L (3.4-5.0) g/dL Blood Type Antibody Screen 08/27/18 08/27/18 08/27/18 Range/Units 13:10 13:10 13:10 WBC (4.0-11.0) th/mm3 RBC (4.50-5.90) mil/mm3 Hgb (13.0-17.0) gm/dL Hct (39.0-51.0) % MCV (80.0-100.0) fL MCH (27.0-34.0) pg MCHC (32.0-36.0) % RDW (11.6-17.2) % Plt Count (150-450) th/mm3 MPV (7.0-11.0) fL Neut % (Auto) (16.0-70.0) % Lymph % (Auto) (9.0-44.0) % [place] % (Auto) (0.0-8.0) % Eos % (Auto) (0.0-4.0) % Baso % (Auto) (0.0-2.0) % Neut # (Auto) (1.8-7.7) th/mm3 Lymph # (Auto) (1.0-4.8) th/mm3 [place] # (Auto) (0.0-0.9) th/mm3 Eos # (Auto) (0.0-0.4) th/mm3 Baso # (Auto) (0.0-0.2) th/mm3 WBC Differential Differential Comment PT (9.8-11.6) sec INR Ratio APTT (23.4-31.7) sec Sodium (136-145) meq/L Potassium (3.5-5.1) meq/L Chloride (98-107) meq/L Carbon Dioxide (21.0-32.0) meq/L Anion Gap (5-15) meq/L BUN (7-18) mg/dL Creatinine (0.60-1.30) mg/dL Estimated GFR (>89) mL/min Random Glucose (74-106) mg/dL Lactic Acid 1.4 (0.4-2.0) mmol/L Calcium (8.5-10.1) mg/dL Magnesium (1.5-2.5) mg/dL Total Bilirubin (0.2-1.0) mg/dL AST (15-37) U/L ALT (12-78) U/L Alkaline Phosphatase (45-117) U/L Total Creatine Kinase 161 (39-308) U/L CK-MB (CK-2) 6.7 H (0.5-3.6) ng/mL Troponin I Less than 0.02 L (0.02-0.05) ng/mL Total Protein (6.4-8.2) g/dL Albumin (3.4-5.0) g/dL Blood Type A Positive Antibody Screen Negative Imaging Data Radiologist's impression: Chest X-Ray 08/27/18 12:58 CONCLUSION: Negative examination. Discharge Plan Discharge Disposition Patient Disposition: ED Admit(ED Internal Use Only) Discharge Order Discharge Orders: ED Use Only Admit Order (Routine); Ordered 08/27/18 Ordered By: Purvi Villa Discharge Details Diagnosis: Sepsis, Acute renal failure Physicians Team ED Provider: Purvi Villa Attending Provider: Jose Elias Restrepo Other Providers: Anahy Gilbert ; Carole Gregorio Status ED Status: Admitted Patient
[2018-08-27 13:45] LABS: Activated Partial Thrombo Time 31.8 sec (23.4-31.7); INR 1.1 Ratio; Prothrombin Time 11.1 sec (9.8-11.6)
[2018-08-27 13:59] LABS: Albumin 2.9 g/dL (3.4-5.0); Anion Gap 14 meq/L (5-15); Aspartate Aminotransferase 28 U/L (15-37); Blood Urea Nitrogen 76 mg/dL (7-18); Calcium 8.9 mg/dL (8.5-10.1); Carbon Dioxide 16.3 meq/L (21.0-32.0); Chloride 102 meq/L (98-107); Glomerular Filtration Rate 18 mL/min (>89); Glucose,Random 95 mg/dL (74-106); Magnesium 2.1 mg/dL (1.5-2.5); Potassium 5.8 meq/L (3.5-5.1); Sodium 132 meq/L (136-145)
[2018-08-27 14:03] LABS: Alanine Aminotransferase 21 U/L (12-78); Alkaline Phosphatase 79 U/L (45-117); Total Protein 6.7 g/dL (6.4-8.2)
[2018-08-27 14:04] LABS: Creatine Kinase 161 U/L (39-308)
[2018-08-27 14:17] LABS: Creatine Kinase MB 6.7 ng/mL (0.5-3.6)
[2018-08-27] MEDS ORDERED: Acetaminophen 325 MG Tablet PO PRN (14:26)
[2018-08-27] MEDS ORDERED: Sod Chloride 0.9% Inj 1,000 ML IV.CONT SCH ×2 (14:30→17:45)
[2018-08-27] MEDS ORDERED: HYDROmorphone PF Inj 0.5 MG/0.5 ML Syringe IV.PUSH PRN (14:31)
[2018-08-27] MEDS ORDERED: HYDROmorphone PF Inj 2 MG/ML Vial IV.PUSH PRN (14:31)
--- NOTE | 2018-08-27 14:56 | P.PNVS ---
Subjective Subjective/Hospital Course: 68-year-old gentleman who underwent 1 month ago left colon resection with primary low anterior anastomosis and diverting right lower quadrant ileostomy for perforated descending colon and huge retroperitoneal abscess Patient did well for 2 weeks in the hospital and was discharged home 2 weeks ago. Patient now comes to my office for follow-up and states that he lost about 15 pounds and feels weak worn and anorexic Indeed patient is in functional decline and reason for this remains elusive Abdomen is soft no rebound no guarding no masses Ileostomy is functioning well Patient appears to be hypotensive dehydrated and volume constricted Renal function is impaired with creatinine of 3.7 and rising BUN Majority of this is prerenal and will treat as such with fluids and electrolytes He will be infused about 3 L of normal saline and extravascular and intravascular volume will be replenished Once creatinine BUN normalized patient will undergo CT scan of abdomen and pelvis to evaluate for any collections I suspect the patient is a low-grade indolent abscess area some more in the left pericolic gutter and is placed on IV antibiotics We will consult infectious disease Will continue to follow patient with you Thanks J Objective Vital Signs / I&O: Vital Signs 08/27/18 12:45 08/27/18 12:58 08/27/18 13:48 Temperature 97.9 F Pulse Rate 111 H 95 H 82 Respiratory Rate 22 15 14 Blood Pressure 65/38 L 72/50 L 85/51 L Pulse Oximetry 100 98 Intake & Output 08/26/18 08/27/18 08/27/18 18:59 06:59 18:59 Intake Total 2099 Balance 2099 Weight 70.307 kg Intake: IV 2099 Zosyn 4.5 GM Premix 4.5 gm In 100 / 100 100 ml @ 200 mls/hr IV.SIG ONCE DEMETRIUS Rx#:[id number] NS Inj 1,000 ML @ 1000 mls/hr 1999 IV.SIG BOLUS DEMETRIUS Rx#:[id number] Laboratory Results - last 24 hr 08/27/18 08/27/18 08/27/18 13:10 13:10 13:10 WBC 11.1 H RBC 2.46 L Hgb 8.0 L Hct 24.4 L MCV 98.9 MCH 32.6 MCHC 32.9 RDW 20.6 H Plt Count 200 MPV 7.7 Neut % (Auto) 85.1 H Lymph % (Auto) 8.8 L [place] % (Auto) 5.4 Eos % (Auto) 0.3 Baso % (Auto) 0.4 Neut # (Auto) 9.4 H Lymph # (Auto) 1.0 [place] # (Auto) 0.6 Eos # (Auto) 0.0 Baso # (Auto) 0.0 WBC Differential . Differential Comment Auto diff final PT 11.1 INR 1.1 APTT 31.8 H Sodium 132 L Potassium 5.8 H Chloride 102 Carbon Dioxide 16.3 L Anion Gap 14 BUN 76 H Creatinine 3.44 H Estimated GFR 18 L Random Glucose 95 Lactic Acid Calcium 8.9 Magnesium 2.1 Total Bilirubin 0.5 AST 28 ALT 21 Alkaline Phosphatase 79 Total Creatine Kinase CK-MB (CK-2) Troponin I Total Protein 6.7 Albumin 2.9 L Blood Type Antibody Screen 08/27/18 08/27/18 08/27/18 13:10 13:10 13:10 WBC RBC Hgb Hct MCV MCH MCHC RDW Plt Count MPV Neut % (Auto) Lymph % (Auto) [place] % (Auto) Eos % (Auto) Baso % (Auto) Neut # (Auto) Lymph # (Auto) [place] # (Auto) Eos # (Auto) Baso # (Auto) WBC Differential Differential Comment PT INR APTT Sodium Potassium Chloride Carbon Dioxide Anion Gap BUN Creatinine Estimated GFR Random Glucose Lactic Acid 1.4 Calcium Magnesium Total Bilirubin AST ALT Alkaline Phosphatase Total Creatine Kinase 161 CK-MB (CK-2) 6.7 H Troponin I Less than 0.02 L Total Protein Albumin Blood Type A Positive Antibody Screen Negative Impressions Chest X-Ray 08/27/18 12:58 CONCLUSION: Negative examination.
--- NOTE | 2018-08-27 15:20 | P.HPIM ---
History of Present Illness Primary Care Physician: Mayela Mondragon Chief Complaint: Abdominal Pain, Chills History of Present Illness: Mr. Moreira is a 68-year-old male. On July 28 he had a bowel perforation and complications of VRE, this required a diverting ileostomy. He has been following as an outpatient with Dr. Douglas. As an outpatient he has been on antibiotics. The patient reports for the past 2 days he has been nauseous with poor p.o. intake. Abdominal pain has been present. He has been fatigued with chills. He had a visit with Dr. Douglas today and was sent to the hospital. Here he is found to be hypotensive. Slight increase in white blood cell count, with a neutrophil shift. Sepsis criteria are not fully present though hypotension could be related to sepsis or dehydration. Fluid boluses are in process. No other complaints at this time. Inpatient Certification Inpatient Certification: I certify that the inpatient services were ordered in accordance with Medicare regulations governing the order. This includes certification that hospital inpatient services are reasonable and necessary and in the case of services not specified as inpatient-only under 42 CFR 419.22(n), that they are appropriately provided as inpatient services in accordance to with the 2-midnight benchmark under 43 CFR 412.3(e) Estimated Total Length of Stay (Days): 4 Plans for Post Hospital Care: Home Review of Systems Constitutional: No fevers, chills no night sweats, no fatigue, no weakness Eyes: No eye pain, no blurry vision, no loss of vision ENT: No sore throat, no ear pain, no rhinorrhea Cardiovascular: No chest pain, no tachycardia, no palpitations, no syncope Respiratory: No wheezing, no cough, no shortness of breath Gastrointestinal: abdominal pain, no black tarry stools, no bright red blood per rectum, nausea, no diarrhea Musculoskeletal: No joint pain, no muscle cramps, no stiffness Integumentary: No rash, no ulcers, no drainage Neurologic: No sensory loss, no loss of motor function, no dizziness Psychiatric: No behavioral changes, no hallucinations, no suicidal ideations [facility] Medical History Medical History CAD (coronary artery disease) (Acute) History of infection with vancomycin resistant Enterococcus (VRE) (Acute ~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/ 18) Hypertension (Acute) Kidney stones (Acute) Rheumatoid arthritis (Acute) Surgical History Surgical History H/O heart artery stent (Acute) H/O hernia repair (Acute) H/O knee surgery (Acute) H/O shoulder surgery (Acute) Hx of CABG (Acute) Family History Family History Other Osteoarthritis Social History Social History Substance History: No History of Abuse Second Hand Smoke Exposure: No Smoking Status: Never smoker Tobacco Type: Cigarettes How Often Do You Have a Drink Containing Alcohol: Never Recent Travel in [place] within the Last 8 Weeks: No Recent Out of Country Travel within the Last 8 Weeks: No Immunization History Tetanus Immunization: Unsure Medications and Allergies Allergies Allergy/AdvReac Type Severity Reaction Status Date / Time No Known Allergies Allergy Uncoded 10/30/13 06:40 Home Medications Medication Instructions Recorded Confirmed Type aspirin [Aspir-Low] 81 mg PO HS 07/22/18 08/27/18 History folic acid 1 mg PO DAILY 07/22/18 08/27/18 History hydralazine 50 mg PO TID 07/22/18 08/27/18 History hydrocodone-acetaminophen 1 tab PO Q6H PRN 07/22/18 08/27/18 History hydroxychloroquine 200 mg PO BID 07/22/18 08/27/18 History magnesium 500 mg PO QAM 07/22/18 08/27/18 History meloxicam 15 mg PO QPM 07/22/18 08/27/18 History methotrexate sodium 8 mg PO QWEEK 07/22/18 08/27/18 History omeprazole 20 mg PO QPM 07/22/18 08/27/18 History lisinopril 20 mg PO DAILY 08/22/18 08/27/18 History Active Medications: Active Medications Acetaminophen (Tylenol) 650 mg PO Q4H PRN PRN Reason: Temp > 100.4 Al Hydroxide/Mg Hydroxide (Milk Of Magnesia Liq) 30 ml PO Q12H PRN PRN Reason: Mild Constipation Folic Acid (Folic Acid) 1 mg PO DAILY DEMETRIUS Hydromorphone HCl (Dilaudid Pf Inj) 0.5 mg IV.PUSH Q4H PRN PRN Reason: Pain 3 to 6 Hydromorphone HCl (Dilaudid Pf Inj) 1 mg IV.PUSH Q4H PRN PRN Reason: Pain 7 to 10 Piperacillin/Tazobactam/Dextrose (Zosyn 4.5 Gm Premix) 4.5 gm in 100 mls @ 200 mls/hr IV.SIG ONCE DEMETRIUS Last Infusion: 08/27/18 14:00 Dose: Infused Sodium Chloride (Ns Inj) 1,000 mls @ 1,000 mls/hr IV.SIG BOLUS DEMETRIUS Stop: 08/27/18 15:14 Last Admin: 08/27/18 15:03 Dose: 1,000 mls/hr Sodium Chloride (Ns Inj) 1,000 mls @ 70 mls/hr IV.CONT .[id number] DEMETRIUS Piperacillin/Tazobactam/Dextrose (Zosyn 3.375 Gm Premix) 3.375 gm in 50 mls @ 100 mls/hr IV.SIG Q6H DEMETRIUS Lactobacillus Acidophilus (Lactinex) 1 tab PO TID DEMETRIUS Magnesium Oxide (Mag-Ox) 400 mg PO DAILY@1100 DEMETRIUS Ondansetron HCl (Zofran Inj) 4 mg IV.PUSH Q6H PRN PRN Reason: NAUSEA OR VOMITING Prednisone (Deltasone) 5 mg PO TID DEMETRIUS Sodium Chloride (Ns Flush) 2 ml IV.FLUSH BID DEMETRIUS Sodium Chloride (Ns Flush) 2 ml IV.FLUSH PRN PRN PRN Reason: FLUSH AFTER USING IV ACCESS Physical Exam Vital signs: Last Vital Signs Temp 97.9 F 08/27/18 12:45 Pulse 83 08/27/18 14:27 Resp 17 08/27/18 14:27 BP 82/47 L 08/27/18 14:27 Pulse Ox 98 08/27/18 13:48 Intake & Output 08/25/18 08/26/18 08/27/18 08/28/18 06:59 06:59 06:59 06:59 Intake Total 2099 Balance 2099 Weight 70.307 kg Narrative: GENERAL: NAD, A&Ox3 HEAD: Normocephalic. NECK: Supple, trachea midline. No lymphadenopathy. EYES: No scleral icterus. No injection or drainage. CARDIOVASCULAR: Regular rate and rhythm without murmurs, gallops, or rubs. RESPIRATORY: Breath sounds equal bilaterally. No accessory muscle use. GASTROINTESTINAL: Abdomen soft, non-tender, nondistended. MUSCULOSKELETAL: No cyanosis, or edema. SKIN: Warm and dry. Midline vertical abdominal incision, healing well, no signs of infection. Right-sided ileostomy without signs of infection. NEURO: No focal neurological deficits. Results Labs CBC & Chem 7: 08/27/18 13:10 08/27/18 13:10 Imaging Impressions Chest X-Ray 08/27/18 12:58 CONCLUSION: Negative examination. Caprini VTE Risk Assessment Caprini VTE Risk Assessment: No/Low Risk (score <= 1) Caprini Risk Assessment Model: Point Value = 1 Point Value = 2 Point Value = 3 Point Value = 5 Age 41-60 Minor surgery BMI > 25 kg/m2 Swollen legs Varicose veins or History of unexplained or recurrent spontaneous Oral contraceptives or hormone replacement Sepsis (< 1 month) Serious lung disease, including pneumonia (< 1 month) Abnormal pulmonary function Acute myocardial infarction Congestive heart failure (< 1 month) History of inflammatory bowel disease Medical patient at bed rest Age 61-74 Arthroscopic surgery Major open surgery (> 45 min) Laparoscopic surgery (> 45 min) Malignancy Confined to bed (> 72 hours) Immobilizing plaster cast Central venous access Age >= 75 History of VTE Family history of VTE Factor V Leiden Prothrombin [id number] Lupus anticoagulant Anticardiolipin antibodies Elevated serum homocysteine Heparin-induced thrombocytopenia Other congenital or acquired thrombophilia Stroke (< 1 month) Elective arthroplasty Hip, pelvis, or leg fracture Acute spinal cord injury (< 1 month) Prophylaxis Regimen: Total Risk Factor Score Risk Level Prophylaxis Regimen 0-1 Low Early ambulation 2 Moderate Order ONE of the following: *Sequential Compression Device (SCD) *Heparin 5000 units SQ BID 3-4 Higher Order ONE of the following medications: *Heparin 5000 units SQ TID *Enoxaparin/Lovenox 40 mg SQ daily (WT < 150 kg, CrCl > 30 mL/min) *Enoxaparin/Lovenox 30 mg SQ daily (WT < 150 kg, CrCl > 10-29 mL/min) *Enoxaparin/Lovenox 30 mg SQ BID (WT < 150 kg, CrCl > 30 mL/min) AND/OR *Sequential Compression Device (SCD) 5 or more Highest Order ONE of the following medications: *Heparin 5000 units SQ TID (Preferred with Epidurals) *Enoxaparin/Lovenox 40 mg SQ daily (WT < 150 kg, CrCl > 30 mL/min) *Enoxaparin/Lovenox 30 mg SQ daily (WT < 150 kg, CrCl > 10-29 mL/min) *Enoxaparin/Lovenox 30 mg SQ BID (WT < 150 kg, CrCl > 30 mL/min) AND *Sequential Compression Device (SCD) Assessment and Plan Plan 68-year-old male admitted secondary to abdominal pain and hypotension with possible postop abdominal infection Hypotension Fluid boluses provided Continue IV hydration Monitor in ICU Start pressors as needed Abdominal pain Possible postop infection History of VRE Status post right ileostomy Zosyn Probiotics Consult surgery Consult ID Screen for C. Diff CT of abdomen when renal function improves BHARATH May be related to dehydration or hypotension IV Hydration Follow renal function Avoid nephrotoxins If worsening or unimproved tomorrow, consider nephrology consult History of hypertension All BP meds are placed on hold given hypotension Follow blood pressures DVT prophylaxis SCDs
[2018-08-27 16:11] LABS: Bilirubin,Urine Negative (Negative); Clarity,Urine Clear (Clear); Color,Urine Yellow (Yellw/Straw); Glucose,Urine (UA) Negative (Negative); Leukocyte Esterase,Urine Trace (Negative); Mucus,Urine Few /lpf (Occasional); Nitrite,Urine Negative (Negative)
[2018-08-27] MEDS ORDERED: Albumin Human 5% Inj 500 ML IV.SIG ONE ×2 (18:00→18:53)
[2018-08-27] MEDS ORDERED: RESP: Albuterol Concentrated 2.5 MG/0.5 ML Neb NEB ONE (18:45)
[2018-08-27] MEDS ORDERED: Dextrose 50% in Water 50 ML Vial IV.PUSH ONE (18:45)
--- NOTE | 2018-08-27 18:50 | P.CONCC ---
History of Present Illness Service: Critical care medicine Consult date: 08/27/18 Requesting Physician: Jose Elias Restrepo Reason for Consult: Critical care management/severe sepsis Primary Care Provider: Mayela Mondragon Chief Complaint: Abdominal Pain, Chills History of Present Illness: This is a 68-year-old male. Admission 08/27/2018. Date of consultation 2017. Past medical history includes coronary artery disease, essential hypertension, hypertension lipidemia, rheumatoid arthritis on chronic prednisone and methotrexate, gastroesophageal reflux disease.. During his last admission 07/28, patient had a descending colon bowel perforation requiring a right lower quadrant ileostomy with a left colon resection with left anterior anastomosis. Patient's hospital course was located by retroperitoneal abscess which grew out VRE, Klebsiella, MRSA and Sarita glabrata. Patient was sent home on levofloxacin and metronidazole. For the past all days,, patient has felt malaise. He was seen at Dr. Gilbert office today was noted to be hypotensive. He was sent to the ER for further evaluation and treatment. In the ED, patient was hypotensive. He was noted to have a sodium of 132. Potassium 5.8. A leukocytosis with an normocytic anemia of 8. His creatinine was 3.4. His baseline is around 1. Received 3 L normal saline in was started on piperacillin/tazobactam. Surgery was consulted along with infectious disease. A CT of the abdomen and pelvis is currently pending. On seen the patient, patient is awake and alert. There are no signs externally of sepsis/mild skin/school. Patient's chief complaint is pain in his hands which is chronic from his rheumatoid arthritis. Review of Systems Constitutional: Reports body ache(s), Reports chills, Reports daytime sleepiness , Reports fatigue, Denies anorexia, Denies excessive sweating, Denies fever(s) Eyes: Denies blind spots, Denies blurry vision, Denies bulging eyes Ears, Nose, Mouth, and Throat: Reports abnormal hearing, Denies post nasal drip , Denies sore throat, Denies throat swelling Cardiovascular: Reports shortness of breath with activity, Denies chest pain, Denies chest pain at rest, Denies shortness of breath, Denies shortness of breath when lying down Respiratory: Reports shortness of breath with activity, Denies change in phlegm color, Denies chest congestion, Denies shortness of breath Gastrointestinal: Denies abdominal pain, Denies nausea, Denies vomiting Genitourinary: Denies urinary hesitancy, Denies urinary incontinence Musculoskeletal: Reports decreased muscle mass, Denies abnormal walking, Denies stiffness Skin/Breast: Denies bleeding lesions, Denies rash, Denies skin pain Neurologic: Reports abnormal hearing, Denies abnormal movements, Denies abnormal speech, Denies headache(s) Psychiatric: Reports anxiety, Denies confusion, Denies depression Endocrine: Denies cold intolerance, Denies excessive sweating Hematologic/Lymphatic: Denies easy bleeding, Denies easy bruising Allergic/Immunologic: Denies GI upset with certain foods PMFSH - History History Provided By: Patient - Medical History Medical History: Medical History (Last Updated 08/27/18 @ 18:40 by Luis M Neal MD) Gastroesophageal reflux disease Hyperlipidemia Methotrexate, manager intermediate, current use Steroid long-term use CAD (coronary artery disease) 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 Hypertension Kidney stones Rheumatoid arthritis - Surgical History Surgical History: Surgical History (Last Updated 08/27/18 @ 18:41 by Luis M Neal MD) Ileostomy present H/O heart artery stent H/O hernia repair H/O knee surgery H/O shoulder surgery Hx of CABG - Family History Family History: Family History (Last Reviewed 08/27/18 @ 19:19 by Carole Gregorio MD) Other Osteoarthritis - Social History I have reviewed the patient's Social History: Yes - Tobacco History Second Hand Smoke Exposure: No Tobacco Use In Past 30 Days: No Smoking Status: Never smoker Tobacco Type: Cigarettes - Alcohol History How Often Do You Have a Drink Containing Alcohol: Never - Substance Use History Substance History: No History of Abuse - Travel History Recent Travel in the [place] Within the Last 8 Weeks: No Recent Travel Out of the Country Within the Last 8 Weeks: No - Immunization History Tetanus Immunization: Unsure Medications and Allergies Active Medications: Active Medications Acetaminophen (Tylenol) 650 mg PO Q4H PRN PRN Reason: Temp > 100.4 Al Hydroxide/Mg Hydroxide (Milk Of Magnesia Liq) 30 ml PO Q12H PRN PRN Reason: Mild Constipation Albuterol (Albuterol Concentrated Neb) 10 mg NEB ONCE ONE Stop: 08/27/18 18:26 Albuterol (Albuterol Neb (David)) 2.5 mg NEB Q2HR NEB PRN PRN Reason: SHORTNESS OF BREATH/WHEEZING Chlorhexidine Gluconate (Chlorhexidine 2% Cloth) 3 pack TOPICAL DAILY@0400 DAVID Stop: 09/02/18 03:59 Chlorhexidine Gluconate (Chlorhexidine 2% Cloth) 3 pack TOPICAL DAILY@0400 PRN PRN Reason: Extra cloth needed Stop: 09/02/18 03:59 Chlorhexidine Gluconate (Chlorhexidine 2% Cloth) 3 pack TOPICAL DAILY@0400 DAVID Stop: 09/02/18 03:59 Chlorhexidine Gluconate (Chlorhexidine 2% Cloth) 3 pack TOPICAL DAILY@0400 PRN PRN Reason: Extra cloth needed Stop: 09/02/18 03:59 Dextrose (D50w Vial) 50 ml IV.PUSH UNSCH ONE Stop: 08/27/18 18:26 Hydrocortisone Sodium Succinate (Solucortef Inj) 100 mg IV.PUSH ONCE ONE Stop: 08/27/18 18:28 Hydromorphone HCl (Dilaudid Pf Inj) 0.5 mg IV.PUSH Q4H PRN PRN Reason: Pain 3 to 6 Hydromorphone HCl (Dilaudid Pf Inj) 1 mg IV.PUSH Q4H PRN PRN Reason: Pain 7 to 10 Piperacillin/Tazobactam/Dextrose (Zosyn 4.5 Gm Premix) 4.5 gm in 100 mls @ 200 mls/hr IV.SIG ONCE DAVID Last Infusion: 08/27/18 14:00 Dose: Infused Albumin Human (Alburx 5% Inj) 500 mls @ 4 mls/min IV.SIG ONCE ONE Stop: 08/27/18 20:04 Calcium Chloride 1 gm/ Sodium (Chloride) 110 mls @ 110 mls/hr IV.SIG ONCE ONE Stop: 08/27/18 19:24 Cefepime HCl 2,000 mg/ Sodium (Chloride) 100 mls @ 200 mls/hr IV.SIG Q24H DAVID Linezolid (Zyvox 600 Mg Premix) 300 mls @ 300 mls/hr IV.SIG Q12H DAVID Metronidazole/Sodium Chloride (Flagyl 500 Mg Inj) 100 mls @ 100 mls/hr IV.SIG Q6H DAVID Sodium Bicarbonate 75 meq/ (Sodium Chloride) 1,000 mls @ 125 mls/hr IV.CONT .Q8H [facility] Insulin Human Regular (Novolin R Inj) 10 units IV.PUSH ONCE ONE Stop: 08/27/18 18:26 Lactobacillus Acidophilus (Lactinex) 1 tab PO TID [facility] Lactulose (Lactulose Liq) 30 ml PO DAILY PRN PRN Reason: SEVERE CONSITIPATION Magnesium Oxide (Mag-Ox) 400 mg PO DAILY@1100 DAVID Ondansetron HCl (Zofran Inj) 4 mg IV.PUSH Q6H PRN PRN Reason: NAUSEA OR VOMITING Prednisone (Deltasone) 5 mg PO TID [facility] Senna/Docusate Sodium (Avril-Colace) 1 tab PO BID [facility] Sodium Bicarbonate (Sodium Bicarbonate 8.4% Inj) 50 meq IV.PUSH UNSCH ONE Stop: 08/27/18 18:26 Sodium Chloride (Ns Flush) 2 ml IV.FLUSH BID [facility] Sodium Chloride (Ns Flush) 2 ml IV.FLUSH PRN PRN PRN Reason: FLUSH AFTER USING IV ACCESS Sodium Chloride (Ns Flush) 2 ml IV.FLUSH BID [facility] Sodium Chloride (Ns Flush) 2 ml IV.FLUSH PRN PRN PRN Reason: FLUSH AFTER USING IV ACCESS Sodium Chloride (Ns Flush) 2 ml IV.FLUSH BID [facility] Sodium Chloride (Ns Flush) 2 ml IV.FLUSH PRN PRN PRN Reason: FLUSH AFTER USING IV ACCESS Sodium Polystyrene Sulfonate (Kayexalate Liq) 30 gm PO ONCE ONE Stop: 08/27/18 18:26 Allergies Allergy/AdvReac Type Severity Reaction Status Date / Time No Known Allergies Allergy Uncoded 10/30/13 06:40 Home Medications Medication Instructions Recorded Confirmed Type aspirin [Aspir-Low] 81 mg PO HS 07/22/18 08/27/18 History folic acid 1 mg PO DAILY 07/22/18 08/27/18 History hydralazine 50 mg PO TID 07/22/18 08/27/18 History hydrocodone-acetaminophen 1 tab PO Q6H PRN 07/22/18 08/27/18 History hydroxychloroquine 200 mg PO BID 07/22/18 08/27/18 History magnesium 500 mg PO QAM 07/22/18 08/27/18 History meloxicam 15 mg PO QPM 07/22/18 08/27/18 History methotrexate sodium 8 mg PO QWEEK 07/22/18 08/27/18 History omeprazole 20 mg PO QPM 07/22/18 08/27/18 History lisinopril 20 mg PO DAILY 08/22/18 08/27/18 History Physical Exam Vital signs: Vital Signs 08/27/18 12:45 08/27/18 12:58 08/27/18 13:48 Temperature 97.9 F Pulse Rate 111 H 95 H 82 Respiratory Rate 22 15 14 Blood Pressure 65/38 L 72/50 L 85/51 L Pulse Oximetry 100 98 08/27/18 14:27 08/27/18 15:48 08/27/18 18:28 Temperature Pulse Rate 83 83 83 Respiratory Rate 17 18 18 Blood Pressure 82/47 L 79/49 L 82/51 L Pulse Oximetry 98 Intake & Output 08/26/18 08/27/18 08/27/18 18:59 06:59 18:59 Intake Total 3100 / 3100 Balance 3100 / 3100 Weight 70.307 kg Intake: IV 3100 / 3100 Zosyn 4.5 GM Premix 4.5 gm In 100 / 100 100 ml @ 200 mls/hr IV.SIG ONCE DAVID Rx#:[id number] NS Inj 1,000 ML @ 1000 mls/hr 3000 / 3000 IV.SIG BOLUS DAVID Rx#:[id number] Narrative: GENERAL: 68-year-old male currently resting in bed in no acute distress SKIN: Warm and dry. No mottling. No rash. Midline abdominal incision is well- healed with javier removed HEAD: Atraumatic. Normocephalic. EYES: Pupils equal and round. No scleral icterus. No injection or drainage. ENT: No nasal bleeding or discharge. Mucous membranes pink and moist. NECK: Trachea midline. No JVD. CARDIOVASCULAR: Regular rate and rhythm. RESPIRATORY: No accessory muscle use. Clear to auscultation. Breath sounds equal bilaterally. GASTROINTESTINAL: Abdomen soft, non-tender, nondistended. Right lower quadrant ileostomy is in place pink per MUSCULOSKELETAL: Extremities without significant peripheral edema. There is no swan neck neck deformities known. No ulnar deviation of the metacarpophalangeal joints. However, there are some hypertrophic change at the distal and proximal interphalangeal joints however. Tenderness over the carpometacarpal joints of the thumb. NEUROLOGICAL: Awake and alert. No obvious cranial nerve deficits. Motor grossly within normal limits. Five out of 5 muscle strength in the arms and legs. Normal speech. PSYCHIATRIC: Appropriate mood and affect; insight and judgment normal. Septic Shock Reassessment Septic shock perfusion: reassessment completed Assessment and Plan - Assessment and Plan Plan: Neuro/Psych: Hydromorphone 0.5-1 mg IV every 4 hours as needed pain CV: Sepsis with hypotension Essential hypertension Coronary artery disease status post CABG Hyperlipidemia Received 3 L normal saline in the ED. Initial lactate was 1.4. Recheck lactate in a.m. Goal to maintain mean arterial pressure greater than equal to 65 Holding lisinopril 20 mg daily and hydralazine 50 mg 3 times daily in light of hypotension Since patient is on chronic prednisone 5 mg daily we will give 1 dose of hydrocortisone 100 mg IV x1 now Holding atorvastatin 40 mg daily for hyperlipidemia. Resume clinically indicated Resp: Nasal cannula to maintain saturations greater than equal to 92% Incentive spirometry while awake As needed albuterol aerosols every 2 hours. Dyspnea Chest x-ray admission revealed no acute cardiopulmonary findings GI: Gastroesophageal reflux disease recent descending colon bowel perforation with the right lower quadrant ileostomy requiring a left colon resection Hypoalbuminemia CT abdomen/pelvis pending Surgical consult with Dr. Misael rodriguez. Pantoprazole for GI prophylaxis. On omeprazole 20 mg daily at home. Currently n.p.o. status : Straight catheterization as needed Endo/Rheum: Chronic prednisone use 5 mg 3 times daily Sliding scale insulin Accu-Cheks to maintain euglycemia Check TSH 1 dose of hydrocortisone 100 mg IV x1 now. On Plaquenil 200 mg twice daily at home for rheumatoid arthritis. Currently on hold. On methotrexate 8 mg weekly. Will hold for now. On folic acid 1 mg daily while on methotrexate Renal: Acute kidney injury Holding all nephrotoxic drugs including SINAI inhibitor monitor urine output Accurate I's and O's Aggressive crystalloid and colloid resuscitation Check urine eosinophils, sodium and creatinine Renal ultrasound rule out hydronephrosis Heme: Acute leukocytosis Normocytic anemia Elevated PTT Currently being transfused 2 units PRBCs. Recheck in a.m. Monitor CBC daily. Follow trends. ID: Severe sepsis History of VRE/MRSA/Klebsiella and C. glabrata retroperitoneal abscess 07/28 Received piperacillin/tazobactam the ED. Currently on Linezolid, cefepime and metronidazole. Micafungin added by infectious disease Blood cultures x2 pending Infectious disease consultation FEN: Acute hyperkalemia Hyponatremia Received insulin/D50/calcium chloride, bicarbonate, Kayexalate x1 now. Recheck potassium at 2200 hrs. Recheck BMP, mag and phosphate 08/28 Currently on one half normal saline with 75 mg of sodium bicarbonate 125 cc an hour MSK: PT evaluate and treat Access -Utilize peripheral IV. Central line if indicated Prophylaxis -GI -pantoprazole -DVT -SCD/holding pharmacologic prophylaxis pending CT abdomen/pelvis Level 3 consult Code Status: Full code Discussed Condition With: Patient. Care plan discussed and all questions answered.
[2018-08-27] MEDS ORDERED: Sodium Chlor 0.9% Inj 500 ML IV.SIG SCH (18:54)
[2018-08-27] MEDS ORDERED: Hydrocortisone Sod Succinate 100 MG Vial IV.PUSH ONE (19:00)
[2018-08-27] MEDS: Lactobacillus Acidophilus/L. Spores Tablet PO SCH (19:06)
[2018-08-27] MEDS: predniSONE 5 MG Tablet PO SCH (19:06)
--- NOTE | 2018-08-27 19:08 | P.CONID ---
History of Present Illness Service: ID Consult date: 08/27/18 Requesting Physician: Jose Elias Restrepo Reason for Consult: sepsis Primary Care Provider: Mayela Mondragon Chief Complaint: Abdominal Pain, Chills History of Present Illness: 68 yo male Tadmitted today Presented with worsening generalysed weakness and low BP BP as low as 60s/40 Also reported of hypothermia prior to admission of 89 F Pt's past medical history includes coronary artery disease, essential hypertension, hypertension lipidemia, rheumatoid arthritis on chronic prednisone and methotrexate, gastroesophageal reflux disease He was admitted 1 month ago with descending colon bowel perforation sp right lower quadrant ileostomy with a left colon resection with left anterior anastomosis. He was found to have retroperitoneal abscess which grew out VRE, Klebsiella ( MDRO, R to Pip-Johnnie), MRSA and Sarita glabrata. He presented to ER on 08/[address] and showed Postsurgical changes status post abdominal surgery and ileostomy placement. There is mild/moderate inflammatory change along the left side of the mesentery and paracolic gutter with ill-defined fluid and several small gas bubbles. Patient was sent home on levofloxacin and metronidazole. Cont to have felt malaise. He was seen at Dr. Gilbert office today was noted to be hypotensive. He was sent to the ER for further evaluation and treatment. 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 Hypertension Kidney stones Rheumatoid arthritis - Surgical History Surgical History: Surgical History (Last Reviewed 08/27/18 @ 19:19 by Carole Gregorio MD) Ileostomy present H/O heart artery stent H/O hernia repair H/O knee surgery H/O shoulder surgery Hx of CABG - Family History Family History: Family History (Last Reviewed 08/27/18 @ 19:19 by Carole Gregorio MD) Other Osteoarthritis - Social History I have reviewed the patient's Social History: Yes - Tobacco History Second Hand Smoke Exposure: No Tobacco Use In Past 30 Days: No Smoking Status: Never smoker Tobacco Type: Cigarettes - Alcohol History How Often Do You Have a Drink Containing Alcohol: Never - Substance Use History Substance History: No History of Abuse - Travel History Recent Travel in the [place] Within the Last 8 Weeks: No Recent Travel Out of the Country Within the Last 8 Weeks: No - Immunization History Tetanus Immunization: Unsure Medications and Allergies Active Medications: Active Medications Acetaminophen (Tylenol) 650 mg PO Q4H PRN PRN Reason: Temp > 100.4 Al Hydroxide/Mg Hydroxide (Milk Of Rosie Licarson) 30 ml PO Q12H PRN PRN Reason: Mild Constipation Albuterol (Albuterol Neb (Prn)) 2.5 mg NEB Q2HR NEB PRN PRN Reason: SHORTNESS OF BREATH/WHEEZING Chlorhexidine Gluconate (Chlorhexidine 2% Cloth) 3 pack TOPICAL DAILY@0400 DEMETRIUS Stop: 09/02/18 03:59 Chlorhexidine Gluconate (Chlorhexidine 2% Cloth) 3 pack TOPICAL DAILY@0400 PRN PRN Reason: Extra cloth needed Stop: 09/02/18 03:59 Hydromorphone HCl (Dilaudid Pf Inj) 0.5 mg IV.PUSH Q4H PRN PRN Reason: Pain 3 to 6 Hydromorphone HCl (Dilaudid Pf Inj) 1 mg IV.PUSH Q4H PRN PRN Reason: Pain 7 to 10 Piperacillin/Tazobactam/Dextrose (Zosyn 4.5 Gm Premix) 4.5 gm in 100 mls @ 200 mls/hr IV.SIG ONCE DEMETRIUS Last Infusion: 08/27/18 14:00 Dose: Infused Albumin Human (Alburx 5% Inj) 500 mls @ 4 mls/min IV.SIG ONCE ONE Stop: 08/27/18 20:04 Calcium Chloride 1 gm/ Sodium (Chloride) 110 mls @ 110 mls/hr IV.SIG ONCE ONE Stop: 08/27/18 20:29 Cefepime HCl 2,000 mg/ Sodium (Chloride) 100 mls @ 200 mls/hr IV.SIG Q24H DEMETRIUS Linezolid (Zyvox 600 Mg Premix) 300 mls @ 300 mls/hr IV.SIG Q12H DEMETRIUS Metronidazole/Sodium Chloride (Flagyl 500 Mg Inj) 100 mls @ 100 mls/hr IV.SIG Q6H DEMETRIUS Sodium Bicarbonate 75 meq/ (Sodium Chloride) 1,000 mls @ 125 mls/hr IV.CONT .Q8H DEMETRIUS Albumin Human (Alburx 5% Inj) 500 mls @ 250 mls/hr IV.SIG ONCE ONE Stop: 08/27/18 20:52 Sodium Chloride (Ns Inj) 500 mls @ 1,000 mls/hr IV.SIG BOLUS DEMETRIUS Stop: 08/27/18 19:23 Lactobacillus Acidophilus (Lactinex) 1 tab PO TID DEMETRIUS Lactulose (Lactulose Liq) 30 ml PO DAILY PRN PRN Reason: SEVERE CONSITIPATION Magnesium Oxide (Mag-Ox) 400 mg PO DAILY@1100 DEMETRIUS Ondansetron HCl (Zofran Inj) 4 mg IV.PUSH Q6H PRN PRN Reason: NAUSEA OR VOMITING Prednisone (Deltasone) 5 mg PO TID [facility] Senna/Docusate Sodium (Avril-Colace) 1 tab PO BID [facility] Sodium Bicarbonate (Sodium Bicarbonate 8.4% Inj) 50 meq IV.PUSH UNSCH ONE Stop: 08/27/18 19:31 Sodium Chloride (Ns Flush) 2 ml IV.FLUSH BID [facility] Sodium Chloride (Ns Flush) 2 ml IV.FLUSH PRN PRN PRN Reason: FLUSH AFTER USING IV ACCESS Sodium Polystyrene Sulfonate (Kayexalate Liq) 30 gm PO ONCE ONE Stop: 08/27/18 19:31 Allergies Allergy/AdvReac Type Severity Reaction Status Date / Time No Known Allergies Allergy Uncoded 10/30/13 06:40 Home Medications Medication Instructions Recorded Confirmed Type aspirin [Aspir-Low] 81 mg PO HS 07/22/18 08/27/18 History folic acid 1 mg PO DAILY 07/22/18 08/27/18 History hydralazine 50 mg PO TID 07/22/18 08/27/18 History hydrocodone-acetaminophen 1 tab PO Q6H PRN 07/22/18 08/27/18 History hydroxychloroquine 200 mg PO BID 07/22/18 08/27/18 History magnesium 500 mg PO QAM 07/22/18 08/27/18 History meloxicam 15 mg PO QPM 07/22/18 08/27/18 History methotrexate sodium 8 mg PO QWEEK 07/22/18 08/27/18 History omeprazole 20 mg PO QPM 07/22/18 08/27/18 History lisinopril 20 mg PO DAILY 08/22/18 08/27/18 History Exam Vital signs: Vital Signs 08/27/18 12:45 08/27/18 12:58 08/27/18 13:48 Temperature 97.9 F Pulse Rate 111 H 95 H 82 Respiratory Rate 22 15 14 Blood Pressure 65/38 L 72/50 L 85/51 L Pulse Oximetry 100 98 08/27/18 14:27 08/27/18 15:48 08/27/18 18:28 Temperature Pulse Rate 83 83 83 Respiratory Rate 17 18 18 Blood Pressure 82/47 L 79/49 L 82/51 L Pulse Oximetry 98 Intake & Output 08/27/18 08/27/18 08/28/18 06:59 18:59 06:59 Intake Total 3100 / 3100 Balance 3100 / 3100 Weight 70.307 kg Intake: IV 3100 / 3100 Zosyn 4.5 GM Premix 4.5 gm In 100 / 100 100 ml @ 200 mls/hr IV.SIG ONCE DEMETRIUS Rx#:[id number] NS Inj 1,000 ML @ 1000 mls/hr 3000 / 3000 IV.SIG BOLUS DEMETRIUS Rx#:[id number] - Constitutional no acute distress, thin - Routine HEENT Exam Head: Present: normocephalic, atraumatic Eye: Present: EOMI, PERRL. Absent: scleral injection ENT: Present: mucous membranes moist, oropharynx clear - Routine Neck Exam Present: supple. Absent: JVD, lymphadenopathy - Routine Respiratory Exam Present: CTA bilaterally. Absent: accessory muscle use, respiratory distress, rhonchi - Routine Cardiovascular Exam Present: RRR, S1, S2. Absent: murmur, gallop Comments: scar from med sternotomy from bypass - Routine Abdominal Exam Present: soft, normoactive bowel sounds, tenderness (LLQ), surgical scars ( heling med laparotomy), ostomy (RLQ). Absent: distended, organomegaly, mass - Routine Extremities Exam Present: normal capillary refill. Absent: cyanosis, clubbing, edema - Routine Skin Exam Present: intact, warm. Absent: mottling, rash - Routine Neurological Exam Present: alert, oriented X3, CN II-XII intact. Absent: sensory deficit, motor deficit - Routine Psychiatric Exam Present: normal affect, normal thought process, cooperative Results - Labs CBC & Chem 7: 08/27/18 13:10 08/27/18 13:10 Labs: Laboratory Results - last 24 hr 08/27/18 08/27/18 08/27/18 13:10 13:10 13:10 WBC 11.1 H RBC 2.46 L Hgb 8.0 L Hct 24.4 L MCV 98.9 MCH 32.6 MCHC 32.9 RDW 20.6 H Plt Count 200 MPV 7.7 Neut % (Auto) 85.1 H Lymph % (Auto) 8.8 L Gosper % (Auto) 5.4 Eos % (Auto) 0.3 Baso % (Auto) 0.4 Neut # (Auto) 9.4 H Lymph # (Auto) 1.0 Gosper # (Auto) 0.6 Eos # (Auto) 0.0 Baso # (Auto) 0.0 WBC Differential . Differential Comment Auto diff final PT 11.1 INR 1.1 APTT 31.8 H Sodium 132 L Potassium 5.8 H Chloride 102 Carbon Dioxide 16.3 L Anion Gap 14 BUN 76 H Creatinine 3.44 H Estimated GFR 18 L Random Glucose 95 Lactic Acid Calcium 8.9 Magnesium 2.1 Total Bilirubin 0.5 AST 28 ALT 21 Alkaline Phosphatase 79 Total Creatine Kinase CK-MB (CK-2) Troponin I Total Protein 6.7 Albumin 2.9 L Urine Color Urine Clarity Urine pH Ur Specific Lott Urine Protein Urine Glucose (UA) Urine Ketones Urine Occult Blood Urine Nitrate Urine Bilirubin Urine Urobilinogen Ur Leukocyte Esterase Urine WBC Granular Casts Urine Mucus Micro UA Comment Ur Microscopic Review Urine Culture Comments Blood Type Antibody Screen 08/27/18 08/27/18 08/27/18 13:10 13:10 13:10 WBC RBC Hgb Hct MCV MCH MCHC RDW Plt Count MPV Neut % (Auto) Lymph % (Auto) Gosper % (Auto) Eos % (Auto) Baso % (Auto) Neut # (Auto) Lymph # (Auto) Gosper # (Auto) Eos # (Auto) Baso # (Auto) WBC Differential Differential Comment PT INR APTT Sodium Potassium Chloride Carbon Dioxide Anion Gap BUN Creatinine Estimated GFR Random Glucose Lactic Acid 1.4 Calcium Magnesium Total Bilirubin AST ALT Alkaline Phosphatase Total Creatine Kinase 161 CK-MB (CK-2) 6.7 H Troponin I Less than 0.02 L Total Protein Albumin Urine Color Urine Clarity Urine pH Ur Specific Lott Urine Protein Urine Glucose (UA) Urine Ketones Urine Occult Blood Urine Nitrate Urine Bilirubin Urine Urobilinogen Ur Leukocyte Esterase Urine WBC Granular Casts Urine Mucus Micro UA Comment Ur Microscopic Review Urine Culture Comments Blood Type A Positive Antibody Screen Negative 08/27/18 15:20 WBC RBC Hgb Hct MCV MCH MCHC RDW Plt Count MPV Neut % (Auto) Lymph % (Auto) Gosper % (Auto) Eos % (Auto) Baso % (Auto) Neut # (Auto) Lymph # (Auto) Gosper # (Auto) Eos # (Auto) Baso # (Auto) WBC Differential Differential Comment PT INR APTT Sodium Potassium Chloride Carbon Dioxide Anion Gap BUN Creatinine Estimated GFR Random Glucose Lactic Acid Calcium Magnesium Total Bilirubin AST ALT Alkaline Phosphatase Total Creatine Kinase CK-MB (CK-2) Troponin I Total Protein Albumin Urine Color Yellow Urine Clarity Clear Urine pH 5.0 Ur Specific Lott 1.010 Urine Protein Negative Urine Glucose (UA) Negative Urine Ketones Negative Urine Occult Blood Negative Urine Nitrate Negative Urine Bilirubin Negative Urine Urobilinogen Less than 2 Ur Leukocyte Esterase Trace H Urine WBC Less than 1 Granular Casts 5 Urine Mucus Few H Micro UA Comment Culture not ind Ur Microscopic Review Not Reportable Urine Culture Comments Culture not ind Blood Type Antibody Screen - Imaging Impressions Chest X-Ray 08/27/18 12:58 CONCLUSION: Negative examination. Assessment and Plan - Plan sp Left colon perforation with a retroperitoneal abscess and leak into the abdominal cavity 1 mo ago; Grew multiple MDRO including Klebsiell, VRE, MRSA and Sarita glabrata sp Extended left colectomy, takedown of splenic flexure, sigmoid resection and low anterior anastomosis, diverting ileostomy. Sepsis, likely intraabdominal sp suspect intraabd abscess h/o ARF Hypotension cont cefepime, flagyl, zyvox taking into account his previous cultures results add micafungin for C glabrata CT A/P dw Dr Neal
[2018-08-27] MEDS ORDERED: Calcium Chloride Inj 1 GM in Sodium Chlor 0.9% Inj 100 ML IV.SIG ONE (19:30)
[2018-08-27] MEDS ORDERED: Sodium Polystyrene Sulfonate/Sorbitol Liq 15 GM/60 ML UDC PO ONE (19:30)
[2018-08-27] MEDS ORDERED: Piperacil/Tazo 3.375 GM Premix 3.375 GM/50 ML PIGGYBACK IV.SIG SCH (20:00)
[2018-08-27] MEDS ORDERED: Famotidine PF Inj 20 MG/2 ML Vial IV.PUSH SCH (21:00)
--- NOTE | 2018-08-27 21:18 | CT ---
EXAM DATE: 08/27/2018 9:13 PM EST AGE/SEX: 68 years / Male INDICATIONS: Abdomen pain. CLINICAL DATA: This is the patient's initial encounter. Patient reports that signs and symptoms have been present for 1 day and indicates a pain score of 5/10. MEDICAL/SURGICAL HISTORY: Cardiovascular disease. Hypertension. Renal calculi. GERD CABG. Coronary artery stent. Ileostomy RADIATION DOSE: 8.91 CTDI (mGy) COMPARISON: [facility] [place] PELVIS W [place]AST, 08/22/2018. . TECHNIQUE: Multiple contiguous axial images were obtained through the abdomen. Images were obtained using multiple row detector helical technique. Using automated exposure control and adjustment of the mA and/or kV according to patient size, radiation dose was kept as low as reasonably achievable to o btain optimal diagnostic quality images. DICOM format image data is available electronically for rev iew and comparison. FINDINGS: Emphysematous changes are seen on lung windows. Degenerative changes of the spine are noted. Cholelit hiasis is noted. There are nonobstructing bilateral renal calculi identified. The largest on the left measures up to 3.4 mm at the lower pole and 2.4 mm on image 34 at the right mid to lower pole. Prost atic calcifications are seen, and the prostate measures 5.3 x 3.7 cm in transverse and AP dimension. Urinary bladder unremarkable. There is evidence of previous partial colonic resection with a staple l ine at the sigmoid/descending colonic junction. Right lower quadrant ileostomy. Diffuse atherosclerot ic calcifications are seen. There is a stable degree of stranding of the intra-abdominal fat in the l eft upper quadrant and left midabdomen. CONCLUSION: 1. There are stable postsurgical changes noted as well as stranding of the intra-abdominal fat in th e left upper quadrant and mid to lower abdomen, not significantly changed. Electronically signed by: Dino Snyder MD Board Certified Radiologist 08/27/2018 9:17 PM EST
[2018-08-27] MEDS: Sodium Bicarbonate 8.4% Inj 75 MEQ in Sodium Chloride 0.45 % Inj 925 ML IV.CONT SCH (21:35)
[2018-08-27 22:05] LABS: Creatinine,Urine Random 39 mg/dL (27-300); Sodium,Urine Random 71 meq/L
[2018-08-27] MEDS: Micafungin Inj 150 MG in Sodium Chlor 0.9% Inj 100 ML IV.SIG SCH (22:43)
[2018-08-27] MEDS: Senna/Docusate Sodium 8.6/50 MG Tablet PO SCH (22:43)
[2018-08-27] MEDS: Magnesium Oxide 400 MG Tablet PO SCH (22:48)
[2018-08-27 23:14] LABS: Alanine Aminotransferase 20 U/L (12-78); Albumin 2.6 g/dL (3.4-5.0); Alkaline Phosphatase 57 U/L (45-117); Anion Gap 10 meq/L (5-15); Aspartate Aminotransferase 27 U/L (15-37); Blood Urea Nitrogen 53 mg/dL (7-18); Calcium 8.7 mg/dL (8.5-10.1); Carbon Dioxide 16.2 meq/L (21.0-32.0); Chloride 112 meq/L (98-107); Glomerular Filtration Rate 31 mL/min (>89); Glucose,Random 111 mg/dL (74-106); Potassium 4.6 meq/L (3.5-5.1); Sodium 138 meq/L (136-145); Thyroid Stimulating Hormone 0.387 uIU/mL (0.358-3.740); Total Protein 5.4 g/dL (6.4-8.2)
[2018-08-28] MEDS: Chlorhexidine Gluconate 2% 1 Pack (2 Cloths) TOPICAL SCH (03:45)
[2018-08-28 03:52] LABS: Baso % (Auto) 0.3 % (0.0-2.0); Eos % (Auto) 0.1 % (0.0-4.0); Hematocrit 26.9 % (39.0-51.0); Hemoglobin 9.4 gm/dL (13.0-17.0); Lymph # (Auto) 0.3 th/mm3 (1.0-4.8); Lymph % (Auto) 4.7 % (9.0-44.0); Mean Corpuscular Hemoglobin 33.3 pg (27.0-34.0); Mean Corpuscular Volume 95.1 fL (80.0-100.0); Mean Platelet Volume 7.2 fL (7.0-11.0); Mono # (Auto) 0.1 th/mm3 (0.0-0.9); Mono % (Auto) 1.4 % (0.0-8.0); Neut % (Auto) 93.5 % (16.0-70.0); Platelet Count 156 th/mm3 (150-450); Red Blood Count 2.83 mil/mm3 (4.50-5.90); Red Cell Distribution Width 18.1 % (11.6-17.2); White Blood Count 5.4 th/mm3 (4.0-11.0)
[2018-08-28 04:00] LABS: INR 1.1 Ratio; Prothrombin Time 11.4 sec (9.8-11.6)
[2018-08-28] MEDS ORDERED: Chlorhexidine Gluconate 2% 1 Pack (2 Cloths) TOPICAL SCH (04:00)
[2018-08-28] MEDS ORDERED: Chlorhexidine Gluconate 2% 1 Pack (2 Cloths) TOPICAL PRN ×2 (04:00)
[2018-08-28 04:11] LABS: Albumin 2.6 g/dL (3.4-5.0); Anion Gap 8 meq/L (5-15); Aspartate Aminotransferase 32 U/L (15-37); Blood Urea Nitrogen 46 mg/dL (7-18); Calcium 8.5 mg/dL (8.5-10.1); Chloride 112 meq/L (98-107); Glomerular Filtration Rate 37 mL/min (>89); Glucose,Random 113 mg/dL (74-106); Magnesium 1.9 mg/dL (1.5-2.5); Sodium 140 meq/L (136-145)
[2018-08-28 04:13] LABS: Alanine Aminotransferase 21 U/L (12-78)
[2018-08-28 04:15] LABS: Alkaline Phosphatase 58 U/L (45-117); Phosphorus 4.1 mg/dL (2.5-4.9); Total Protein 5.4 g/dL (6.4-8.2)
[2018-08-28] MEDS: Sodium Bicarbonate 8.4% Inj 75 MEQ in Sodium Chloride 0.45 % Inj 925 ML IV.CONT SCH (05:34)
--- NOTE | 2018-08-28 08:00 | P.PNCC ---
Subjective Subjective Remarks/Hospital Course: This is a 68-year-old male. Admission 08/27/2018. Date of consultation 2017. Past medical history includes coronary artery disease, essential hypertension, hyperlipidemia, rheumatoid arthritis on chronic prednisone and methotrexate, gastroesophageal reflux disease. During his last admission 07/28 , patient had a descending colon bowel perforation requiring a right lower quadrant ileostomy with a left colon resection with left anterior anastomosis. Patient's hospital course was located by retroperitoneal abscess which grew out VRE, Klebsiella, MRSA and Sarita glabrata. Patient was sent home on levofloxacin and metronidazole. For the past few days, patient has felt malaise. He was seen at Dr. Gilbert's office today was noted to be hypotensive. He was sent to the ER for further evaluation and treatment. In the ED, patient was hypotensive. He was noted to have a sodium of 132. Potassium 5.8. A leukocytosis with an normocytic anemia of 8. His creatinine was 3.4. His baseline is around 1. Received 3 L normal saline in was started on piperacillin/tazobactam. Surgery was consulted along with infectious disease. A CT of the abdomen and pelvis is currently pending. On seen the patient, patient is awake and alert. There are no signs externally of sepsis/mild skin/school. Patient's chief complaint is pain in his hands which is chronic from his rheumatoid arthritis. 08/28: CT abd/ pelvis showed no acute abscess or fluid collection but persistent LUQ stranding, unchanged. Patient hemodynamically stable overnight, only complains of hunger this morning. The patient's states that the patient had nausea and vomiting for 1 day prior to his scheduled office visit with surgery for post-op staple removal, has been emptying ostomy bag 3-4 times at home, patient denies fevers or chills at home. I suspect dehydration from decreased PO intake was inciting factor behind his hypotension on presentation. Objective Vital Signs / I&O: Vital Signs 08/27/18 12:45 08/27/18 12:58 08/27/18 13:48 Temperature 97.9 F Pulse Rate 111 H 95 H 82 Respiratory Rate 22 15 14 Blood Pressure 65/38 L 72/50 L 85/51 L Pulse Oximetry 100 98 08/27/18 14:27 08/27/18 15:48 08/27/18 17:48 Temperature Pulse Rate 83 83 Respiratory Rate 17 18 Blood Pressure 82/47 L 79/49 L 140/101 H Pulse Oximetry 08/27/18 17:49 08/27/18 17:52 08/27/18 18:00 Temperature 97.7 F Pulse Rate 98 H 91 H 93 H Respiratory Rate 30 H 27 H 29 H Blood Pressure 91/55 L 105/54 L Pulse Oximetry 08/27/18 18:15 08/27/18 18:28 08/27/18 18:30 Temperature Pulse Rate 92 H 83 92 H Respiratory Rate 22 18 25 H Blood Pressure 84/50 L 82/51 L 88/50 L Pulse Oximetry 99 98 97 08/27/18 18:45 08/27/18 19:00 08/27/18 19:15 Temperature Pulse Rate 92 H 97 H 92 H Respiratory Rate 20 23 17 Blood Pressure 91/51 L 99/58 L 109/56 L Pulse Oximetry 100 87 L 08/27/18 19:19 08/27/18 19:30 08/27/18 19:45 Temperature Pulse Rate 90 100 H 104 H Respiratory Rate 18 25 H 22 Blood Pressure 111/59 L 100/50 L Pulse Oximetry 94 L 100 08/27/18 20:00 08/27/18 20:15 08/27/18 20:30 Temperature Pulse Rate 102 H 100 H 99 H Respiratory Rate 20 22 22 Blood Pressure 98/54 L 92/51 L 105/51 L Pulse Oximetry 96 97 98 08/27/18 20:35 08/27/18 20:45 08/27/18 21:00 Temperature 99.0 F Pulse Rate 102 H 97 H 95 H Respiratory Rate 22 22 14 Blood Pressure 105/51 L 98/53 L 97/51 L Pulse Oximetry 96 97 89 L 08/27/18 21:15 08/27/18 21:20 08/27/18 21:30 Temperature 98.9 F Pulse Rate 93 H 90 90 Respiratory Rate 43 H 18 21 Blood Pressure 108/57 L 108/57 L 95/52 L Pulse Oximetry 90 L 98 08/27/18 21:45 08/27/18 22:00 08/27/18 22:15 Temperature Pulse Rate 91 H 90 90 Respiratory Rate 23 21 23 Blood Pressure 105/56 L 97/53 L 97/51 L Pulse Oximetry 98 97 97 08/27/18 22:30 08/27/18 22:45 08/27/18 22:53 Temperature 98.7 F Pulse Rate 94 H 90 88 Respiratory Rate 22 22 24 Blood Pressure 100/56 L 98/53 L 98/53 L Pulse Oximetry 97 95 96 08/27/18 23:00 08/27/18 23:15 08/27/18 23:30 Temperature Pulse Rate 88 87 87 Respiratory Rate 23 22 24 Blood Pressure 105/57 L 95/50 L 95/53 L Pulse Oximetry 97 95 94 L 08/27/18 23:45 08/28/18 00:00 08/28/18 00:15 Temperature Pulse Rate 86 87 87 Respiratory Rate 22 23 23 Blood Pressure 109/55 L 107/56 L 107/55 L Pulse Oximetry 99 97 96 08/28/18 00:30 08/28/18 00:45 08/28/18 01:00 Temperature Pulse Rate 95 H 86 88 Respiratory Rate 44 H 21 22 Blood Pressure 125/60 112/57 L 101/59 L Pulse Oximetry 91 L 95 96 08/28/18 01:09 08/28/18 01:15 08/28/18 01:30 Temperature Pulse Rate 88 86 Respiratory Rate 22 23 19 Blood Pressure 96/52 L 108/57 L Pulse Oximetry 97 97 08/28/18 01:45 08/28/18 02:00 08/28/18 02:15 Temperature Pulse Rate 86 85 89 Respiratory Rate 21 22 17 Blood Pressure 102/58 L 101/56 L 110/59 L Pulse Oximetry 96 96 98 08/28/18 02:30 08/28/18 02:45 08/28/18 03:00 Temperature Pulse Rate 82 81 84 Respiratory Rate 18 19 22 Blood Pressure 104/55 L 112/60 104/55 L Pulse Oximetry 97 99 97 08/28/18 03:15 08/28/18 03:30 08/28/18 03:45 Temperature Pulse Rate 79 77 76 Respiratory Rate 20 19 21 Blood Pressure 107/57 L 109/61 108/59 L Pulse Oximetry 100 99 99 08/28/18 04:00 08/28/18 04:15 08/28/18 04:30 Temperature 98.5 F Pulse Rate 78 77 81 Respiratory Rate 38 H 20 22 Blood Pressure 116/63 104/55 L 103/55 L Pulse Oximetry 97 97 96 08/28/18 04:45 08/28/18 05:00 08/28/18 05:15 Temperature Pulse Rate 82 82 80 Respiratory Rate 22 23 22 Blood Pressure 103/55 L 102/55 L 104/59 L Pulse Oximetry 96 96 97 08/28/18 05:30 08/28/18 05:45 08/28/18 06:00 Temperature Pulse Rate 79 78 91 H Respiratory Rate 24 21 35 H Blood Pressure 100/59 L 104/57 L 125/58 L Pulse Oximetry 96 96 98 Intake & Output 08/27/18 08/28/18 08/28/18 18:59 06:59 18:59 Intake Total 3100 / 3100 4350 / 4350 Output Total 1675 / 1675 Balance 3100 / 3100 2675 / 2675 Weight 70.307 kg 77.5 kg Intake: IV 3100 / 3100 3310 / 3310 Sodium Bicarbonate 8.4% Inj 75 1000 / 1000 MEQ In 1/2 Normal Saline Inj 925 ML @ 125 mls/hr IV.CONT . Q8H [facility] Rx#:[id number] Alburx 5% Inj 500 ML @ 4 mls/ 1000 / 1000 min IV.SIG ONCE ONE Rx#: [id number] Calcium Chloride Inj 1 GM In NS 110 / 110 Inj 100 ML @ 110 mls/hr IV.SIG ONCE ONE Rx#:[id number] Maxipime Inj 2,000 MG In NS Inj 100 / 100 100 ML @ 200 mls/hr IV.SIG Q24H [facility]ET[facility] Rx#:[id number] Zyvox 600 mg Premix 300 ML @ 300 / 300 300 mls/hr IV.SIG Q12H DEMET[facility] Rx#: [id number] Mycamine Inj 150 MG In NS Inj 100 / 100 100 ML @ 100 mls/hr IV.SIG Q24H [facility] Rx#:[id number] Zosyn 4.5 GM Premix 4.5 gm In 100 / 100 100 ml @ 200 mls/hr IV.SIG ONCE [facility]RIUS Rx#:[id number] NS Inj 1,000 ML @ 1000 mls/hr 3000 / 3000 IV.SIG BOLUS DEMETRIUS Rx#:[id number] NS Inj 500 ML @ 1000 mls/hr IV. 500 / 500 SIG BOLUS DEMETRIUS Rx#:[id number] Flagyl 500 MG Inj 100 ML @ 100 200 / 200 mls/hr IV.SIG Q6H [facility]ET[facility] Rx#: [id number] Oral 240 / 240 Intake (Blood Product) Amt 800 / 800 Rbc As-3 Leukoreduced Unit 400 / 400 [id number] Rbc As-3 Leukoreduced Unit 400 / 400 [id number] Output: Urine 1425 / 1425 Stool Amount (Stoma) 250 / 250 Right Lower Abdomen 250 / 250 Other: # Bowel Movements 0 Result Diagrams: 08/28/18 03:10 08/28/18 03:10 Objective Remarks: GEN: Well-appearing, sitting up in bed in no acute distress HEENT: NCAT, PERRL NECK: Trachea midline CARDIO: Regular rate and rhythm PULM: Clear to auscultation bilaterally, good inspiratory effort ABD/GI: Soft, non-distended, non-tender in all quadrants. Well-healed midline surgical scar, javier have been removed. RLQ ostomy present with liquid drainage in bag. EXT/MSK: No peripheral edema SKIN: Warm and well-perfused, no rashes or lesions NEURO: Awake and alert, answers questions appropriately, no neuro deficits PSYCH: Calm, no current agitation Assessment and Plan - Assessment and Plan Plan: 68yM with recent descending colon perforation and RLQ ileostomy, presenting with acute renal failure, hyperkalemia, hypotension, severe dehydration, and suspected sepsis. Neuro/Psych: Chronic pain from rheumatoid arthritis -Restart home pain regimen (percocet) -Tylenol PRN pain/ fever CV: Sepsis with hypotension, improving Essential hypertension Coronary artery disease status post CABG Hyperlipidemia -Received 3 L normal saline in the ED, lactic acid cleared, no longer trending -Holding lisinopril 20 mg daily and hydralazine 50 mg 3 times daily in light of hypotension on admission, can likely restart tomorrow if creat continues to improve -Continue home dose of chronic prednisone -Restart home dose of atorvastatin 40 mg daily for hyperlipidemia Resp: -Nasal cannula to maintain saturations greater than equal to 92% -Incentive spirometry while awake -As needed albuterol aerosols every 2 hours PRN dyspnea -Chest x-ray on admission revealed no acute cardiopulmonary findings GI: History of gastroesophageal reflux disease S/P recent descending colon bowel perforation s/p left colon resection with RLQ ileostomy Chronic moderate protein calorie deficiency as evidenced by hypoalbuminemia -CT abdomen/pelvis shows no acute pathology, stable post-op changes, stable LUQ / mid abdomen fat stranding -Pepcid for GI prophylaxis. On omeprazole 20 mg daily at home (non-formulary) -Case discussed with STEPHANIE Patel for PO diet, will d/c IVF -Multivitamin : -Straight catheterization as needed for urinary retention, does not require Monroy catheter Endo/Rheum: Chronic prednisone use 5 mg 3 times daily -AC and HS fingersticks as patient is on steroids, no history of diabetes, maintain euglycemia -TSH wnl -1 dose of hydrocortisone 100 mg IV x1 on admission, continue home dose of prednisone, no current signs of adrenal insufficiency or crisis -Restart home meds for rheumatoid arthritis- Plaquenil 200 mg twice daily, methotrexate 8 mg weekly with folic acid supplementation Renal: Acute kidney injury, improving -Suspect pre-renal/ dehydration -Holding all nephrotoxic drugs including SINAI inhibitor, creatinine improving ( baseline around 1.0, currently 1.8), can restart when creatine returns to baseline -s/p aggressive crystalloid and colloid resuscitation, currently euvolemic, d/c maintenance fluids as patient is being started on diet -Urine eosinophils negative, lytes wnl -CT abd/pelvis show non-obstructing bilateral renal calculi, no hydronephrosis or signs of obstructive nephropathy Heme: Acute leukocytosis, resolved Normocytic anemia -s/p transfusion of 2 units PRBCs, hemoglobin increased appropriately, now at baseline Hg of 9-10, monitor for signs or symptoms of active bleeding ID: Severe sepsis, improving History of VRE/MRSA/Klebsiella and C. 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 * Infectious disease recommendations appreciated FEN: Acute hyperkalemia, resolved Hyponatremia, resolved -Received insulin/D50/calcium chloride, bicarbonate, Kayexalate x1 on admission. Potassium this morning wnl at 5.0. -D/C IVF as patient is appropriately resuscitated and will be started on regular diet MSK: -PT evaluate and treat, OOB/ ambulate as tolerate Access -Utilize peripheral IV Prophylaxis -GI -pepcid (on PPI at home) -DVT -SCD/ SQH OVERALL: This patient is adequately resuscitated and now hemodynamically stable. He can be transitioned out of the ISC to med-surg as per surgery recommendations. Please don't hesitate to re-consult if there are any new issues or concerns. Level 2 follow up To help prompt me to consider important information that might be impacting today's encounter and assessment, information from prior notes written by myself or my colleagues may have been "brought forward" into today's note. My signature on this note, however, is an attestation that I personally performed the exam, history, and/or decision-making noted today, and, unless otherwise indicated, the interactions with patient, family, and staff as well as the review of records all occurred today. I also attest that the listed assessment and stated plan reflect my best clinical judgment today based on the combination of historical information, prior notes, and today's exam/ interactions. Code Status: Full Discussed Condition With: RN, patient and patient's , Dr. Gilbert.
[2018-08-28] MEDS ORDERED: Folic Acid 1 MG Tablet PO SCH (09:00)
[2018-08-28] MEDS: Heparin - SQ 10,000 UNITS/ML Vial SQ SCH ×3 (09:51→23:19)
[2018-08-28] MEDS: Famotidine PF Inj 20 MG/2 ML Vial IV.PUSH SCH ×2 (09:51→20:21)
[2018-08-28] MEDS: Folic Acid 1 MG Tablet PO SCH (09:51)
[2018-08-28] MEDS: Lactobacillus Acidophilus/L. Spores Tablet PO SCH ×3 (09:51→17:21)
[2018-08-28] MEDS: predniSONE 5 MG Tablet PO SCH ×3 (09:51→17:21)
[2018-08-28] MEDS: Senna/Docusate Sodium 8.6/50 MG Tablet PO SCH ×2 (09:52→20:22)
[2018-08-28] MEDS: Multivit/Folic Acid/Minerals Chewable Tablets CHEW SCH (10:34)
[2018-08-28] MEDS: Hydroxychloroquine 200 MG Tablet PO SCH ×2 (10:34→20:21)
--- NOTE | 2018-08-28 11:46 | P.PNIM ---
Subjective Interval history: Significant improvement overnight. Hypotension has resolved. Patient is no longer having rigors. Renal function has shown signs of improvement. CT abdomen without contrast shows no evidence of abscess. Significant drop in white blood cell count. C. difficile testing is negative. Zosyn has been discontinued, patient is now on Flagyl and Linezolid. Physical Exam Vital signs: Last Vital Signs Temp 98.8 F 08/28/18 08:00 Pulse 79 08/28/18 10:00 Resp 16 08/28/18 10:34 BP 100/57 L 08/28/18 09:15 Pulse Ox 94 L 08/28/18 09:15 Intake & Output 08/26/18 08/27/18 08/28/18 08/29/18 06:59 06:59 06:59 06:59 Intake Total 7450 / 7450 Output Total 1675 / 1675 Balance 5775 / 5775 Weight 77.5 kg Narrative: GENERAL: NAD, A&Ox3 HEAD: Normocephalic. NECK: Supple, trachea midline. No lymphadenopathy. EYES: No scleral icterus. No injection or drainage. CARDIOVASCULAR: Regular rate and rhythm without murmurs, gallops, or rubs. RESPIRATORY: Breath sounds equal bilaterally. No accessory muscle use. GASTROINTESTINAL: Abdomen soft, non-tender, nondistended. MUSCULOSKELETAL: No cyanosis, or edema. SKIN: Warm and dry. Midline abdominal scar, healing well. Right-sided colostomy bag. NEURO: No focal neurological deficits. Results Labs CBC & Chem 7: 08/28/18 03:10 08/28/18 03:10 Labs: Microbiology 08/27/18 13:10 Blood - Peripheral Aerobic Blood Culture - Preliminary No growth in 1 day 08/27/18 13:10 Blood - Peripheral Anaerobic Blood Culture - Preliminary No growth in 1 day 08/27/18 13:05 Blood - Peripheral Aerobic Blood Culture - Preliminary No growth in 1 day 08/27/18 13:05 Blood - Peripheral Anaerobic Blood Culture - Preliminary No growth in 1 day Imaging Imaging: Impressions Chest X-Ray 08/27/18 12:58 CONCLUSION: Negative examination. Abdomen/Pelvis CT 08/27/18 19:18 CONCLUSION: 1. There are stable postsurgical changes noted as well as stranding of the intra-abdominal fat in the left upper quadrant and mid to lower abdomen, not significantly changed. Assessment and Plan Plan 68-year-old male admitted secondary to abdominal pain and hypotension with possible postop abdominal infection Improved compared to yesterday. Stable for transfer out of ICU. Discontinue telemetry. Continue IV hydration and monitor renal function. Hypotension Fluid boluses provided Continue IV hydration Monitor in ICU Start pressors as needed Abdominal pain Possible postop infection History of VRE Status post right ileostomy Zosyn discontinued Continue metronidazole Continue Linezolid Probiotics Surgical team following Infectious disease team following Screen for C. Diff is negative CT of abdomen when renal function improves BHARATH May be related to dehydration or hypotension IV Hydration Follow renal function Avoid nephrotoxins If worsening or unimproved tomorrow, consider nephrology consult History of hypertension All BP meds are placed on hold given hypotension Follow blood pressures DVT prophylaxis SCDs
--- NOTE | 2018-08-28 12:42 | P.PNVS ---
Subjective Subjective/Hospital Course: 68-year-old gentleman who underwent 1 month ago left colon resection with primary low anterior anastomosis and diverting right lower quadrant ileostomy for perforated descending colon and huge retroperitoneal abscess Patient did well for 2 weeks in the hospital and was discharged home 2 weeks ago. Patient now comes to my office for follow-up and states that he lost about 15 pounds and feels weak worn and anorexic Indeed patient is in functional decline and reason for this remains elusive Abdomen is soft no rebound no guarding no masses Ileostomy is functioning well Patient appears to be hypotensive dehydrated and volume constricted Renal function is impaired with creatinine of 3.7 and rising BUN Majority of this is prerenal and will treat as such with fluids and electrolytes He will be infused about 3 L of normal saline and extravascular and intravascular volume will be replenished Once creatinine BUN normalized patient will undergo CT scan of abdomen and pelvis to evaluate for any collections I suspect the patient is a low-grade indolent abscess area some more in the left pericolic gutter and is placed on IV antibiotics We will consult infectious disease Will continue to follow patient with you Thanks Misael 08/28/2018 Patient doing much better this morning He is awake alert and oriented Laboratory studies have improved and patient's prerenal azotemia and hypovolemia is almost completely resolved with resolution of elevation of creatinine and BUN Patient received 2 units of PRBC as well as 4 L of crystalloids and some colloids Hemodynamically he is now stable Bilateral good breath sounds lungs are clear CT scan of abdomen and pelvis does not reveal any retained collections and is consistent with postoperative changes inflammatory edema in the left adriano- abdominal wall Critical care consult is greatly appreciated and so is the infectious disease care Patient can be transferred to the floor and advance to the diet and we will see how things go Objective Vital Signs / I&O: Vital Signs 08/27/18 12:45 08/27/18 12:58 08/27/18 13:48 Temperature 97.9 F Pulse Rate 111 H 95 H 82 Respiratory Rate 22 15 14 Blood Pressure 65/38 L 72/50 L 85/51 L Pulse Oximetry 100 98 08/27/18 14:27 08/27/18 15:48 08/27/18 17:48 Temperature Pulse Rate 83 83 Respiratory Rate 17 18 Blood Pressure 82/47 L 79/49 L 140/101 H Pulse Oximetry 08/27/18 17:49 08/27/18 17:52 08/27/18 18:00 Temperature 97.7 F Pulse Rate 98 H 91 H 93 H Respiratory Rate 30 H 27 H 29 H Blood Pressure 91/55 L 105/54 L Pulse Oximetry 08/27/18 18:15 08/27/18 18:28 08/27/18 18:30 Temperature Pulse Rate 92 H 83 92 H Respiratory Rate 22 18 25 H Blood Pressure 84/50 L 82/51 L 88/50 L Pulse Oximetry 99 98 97 08/27/18 18:45 08/27/18 19:00 08/27/18 19:15 Temperature Pulse Rate 92 H 97 H 92 H Respiratory Rate 20 23 17 Blood Pressure 91/51 L 99/58 L 109/56 L Pulse Oximetry 100 87 L 08/27/18 19:19 08/27/18 19:30 08/27/18 19:45 Temperature Pulse Rate 90 100 H 104 H Respiratory Rate 18 25 H 22 Blood Pressure 111/59 L 100/50 L Pulse Oximetry 94 L 100 08/27/18 20:00 08/27/18 20:15 08/27/18 20:30 Temperature Pulse Rate 102 H 100 H 99 H Respiratory Rate 20 22 22 Blood Pressure 98/54 L 92/51 L 105/51 L Pulse Oximetry 96 97 98 08/27/18 20:35 08/27/18 20:45 08/27/18 21:00 Temperature 99.0 F Pulse Rate 102 H 97 H 95 H Respiratory Rate 22 22 14 Blood Pressure 105/51 L 98/53 L 97/51 L Pulse Oximetry 96 97 89 L 08/27/18 21:15 08/27/18 21:20 08/27/18 21:30 Temperature 98.9 F Pulse Rate 93 H 90 90 Respiratory Rate 43 H 18 21 Blood Pressure 108/57 L 108/57 L 95/52 L Pulse Oximetry 90 L 98 08/27/18 21:45 08/27/18 22:00 08/27/18 22:15 Temperature Pulse Rate 91 H 90 90 Respiratory Rate 23 21 23 Blood Pressure 105/56 L 97/53 L 97/51 L Pulse Oximetry 98 97 97 08/27/18 22:30 08/27/18 22:45 08/27/18 22:53 Temperature 98.7 F Pulse Rate 94 H 90 88 Respiratory Rate 22 22 24 Blood Pressure 100/56 L 98/53 L 98/53 L Pulse Oximetry 97 95 96 08/27/18 23:00 08/27/18 23:15 08/27/18 23:30 Temperature Pulse Rate 88 87 87 Respiratory Rate 23 22 24 Blood Pressure 105/57 L 95/50 L 95/53 L Pulse Oximetry 97 95 94 L 08/27/18 23:45 08/28/18 00:00 08/28/18 00:15 Temperature Pulse Rate 86 87 87 Respiratory Rate 22 23 23 Blood Pressure 109/55 L 107/56 L 107/55 L Pulse Oximetry 99 97 96 08/28/18 00:30 08/28/18 00:45 08/28/18 01:00 Temperature Pulse Rate 95 H 86 88 Respiratory Rate 44 H 21 22 Blood Pressure 125/60 112/57 L 101/59 L Pulse Oximetry 91 L 95 96 08/28/18 01:09 08/28/18 01:15 08/28/18 01:30 Temperature Pulse Rate 88 86 Respiratory Rate 22 23 19 Blood Pressure 96/52 L 108/57 L Pulse Oximetry 97 97 08/28/18 01:45 08/28/18 02:00 08/28/18 02:15 Temperature Pulse Rate 86 85 89 Respiratory Rate 21 22 17 Blood Pressure 102/58 L 101/56 L 110/59 L Pulse Oximetry 96 96 98 08/28/18 02:30 08/28/18 02:45 08/28/18 03:00 Temperature Pulse Rate 82 81 84 Respiratory Rate 18 19 22 Blood Pressure 104/55 L 112/60 104/55 L Pulse Oximetry 97 99 97 08/28/18 03:15 08/28/18 03:30 08/28/18 03:45 Temperature Pulse Rate 79 77 76 Respiratory Rate 20 19 21 Blood Pressure 107/57 L 109/61 108/59 L Pulse Oximetry 100 99 99 08/28/18 04:00 08/28/18 04:15 08/28/18 04:30 Temperature 98.5 F Pulse Rate 78 77 81 Respiratory Rate 38 H 20 22 Blood Pressure 116/63 104/55 L 103/55 L Pulse Oximetry 97 97 96 08/28/18 04:45 08/28/18 05:00 08/28/18 05:15 Temperature Pulse Rate 82 82 80 Respiratory Rate 22 23 22 Blood Pressure 103/55 L 102/55 L 104/59 L Pulse Oximetry 96 96 97 08/28/18 05:30 08/28/18 05:45 08/28/18 06:00 Temperature Pulse Rate 79 78 91 H Respiratory Rate 24 21 35 H Blood Pressure 100/59 L 104/57 L 125/58 L Pulse Oximetry 96 96 98 08/28/18 06:15 08/28/18 06:30 08/28/18 06:45 Temperature Pulse Rate 74 78 72 Respiratory Rate 20 21 19 Blood Pressure 111/61 118/65 119/67 Pulse Oximetry 97 98 99 08/28/18 07:00 08/28/18 07:15 08/28/18 07:30 Temperature Pulse Rate 73 75 74 Respiratory Rate 20 21 21 Blood Pressure 117/64 109/60 113/58 L Pulse Oximetry 99 96 96 08/28/18 07:45 08/28/18 08:00 08/28/18 08:15 Temperature 98.8 F Pulse Rate 76 87 80 Respiratory Rate 23 31 H 28 H Blood Pressure 110/59 L 119/60 120/63 Pulse Oximetry 96 99 98 08/28/18 08:30 08/28/18 08:45 08/28/18 09:00 Temperature Pulse Rate 75 80 79 Respiratory Rate 16 22 21 Blood Pressure 120/65 115/63 111/57 L Pulse Oximetry 98 100 97 08/28/18 09:15 08/28/18 09:30 08/28/18 09:45 Temperature Pulse Rate 82 82 88 Respiratory Rate 22 24 26 H Blood Pressure 100/57 L 105/58 L 117/67 Pulse Oximetry 94 L 93 L 92 L 08/28/18 10:00 08/28/18 10:15 08/28/18 10:30 Temperature Pulse Rate 83 77 82 Respiratory Rate 23 22 26 H Blood Pressure 103/59 L 100/57 L 101/58 L Pulse Oximetry 100 100 100 08/28/18 10:34 08/28/18 10:45 08/28/18 11:00 Temperature Pulse Rate 73 82 Respiratory Rate 16 23 44 H Blood Pressure 121/63 111/64 Pulse Oximetry 100 83 L 08/28/18 11:24 08/28/18 11:30 08/28/18 11:45 Temperature Pulse Rate 78 78 77 Respiratory Rate 24 32 H 26 H Blood Pressure 129/60 116/65 115/69 Pulse Oximetry 08/28/18 12:00 08/28/18 12:15 Temperature 98.6 F Pulse Rate 71 68 Respiratory Rate 19 19 Blood Pressure 109/67 116/67 Pulse Oximetry Intake & Output 08/27/18 08/28/18 08/28/18 18:59 06:59 18:59 Intake Total 3100 / 3100 4350 / 4350 Output Total 1675 / 1675 Balance 3100 / 3100 2675 / 2675 Weight 70.307 kg 77.5 kg Intake: IV 3100 / 3100 3310 / 3310 Sodium Bicarbonate 8.4% Inj 75 1000 / 1000 MEQ In 1/2 Normal Saline Inj 925 ML @ 125 mls/hr IV.CONT . Q8H DEMETRIUS Rx#:[id number] Alburx 5% Inj 500 ML @ 4 mls/ 1000 / 1000 min IV.SIG ONCE ONE Rx#: [id number] Calcium Chloride Inj 1 GM In NS 110 / 110 Inj 100 ML @ 110 mls/hr IV.SIG ONCE ONE Rx#:[id number] Maxipime Inj 2,000 MG In NS Inj 100 / 100 100 ML @ 200 mls/hr IV.SIG Q24H DEMETRIUS Rx#:[id number] Zyvox 600 mg Premix 300 ML @ 300 / 300 300 mls/hr IV.SIG Q12H DEMETRIUS Rx#: [id number] Mycamine Inj 150 MG In NS Inj 100 / 100 100 ML @ 100 mls/hr IV.SIG Q24H DEMETRIUS Rx#:[id number] Zosyn 4.5 GM Premix 4.5 gm In 100 / 100 100 ml @ 200 mls/hr IV.SIG ONCE DEMETRIUS Rx#:[id number] NS Inj 1,000 ML @ 1000 mls/hr 3000 / 3000 IV.SIG BOLUS DEMETRIUS Rx#:[id number] NS Inj 500 ML @ 1000 mls/hr IV. 500 / 500 SIG BOLUS DEMETRIUS Rx#:[id number] Flagyl 500 MG Inj 100 ML @ 100 200 / 200 mls/hr IV.SIG Q6H DEMETRIUS Rx#: [id number] Oral 240 / 240 Intake (Blood Product) Amt 800 / 800 Rbc As-3 Leukoreduced Unit 400 / 400 [id number] Rbc As-3 Leukoreduced Unit 400 / 400 [id number] Output: Urine 1425 / 1425 Stool Amount (Stoma) 250 / 250 Right Lower Abdomen 250 / 250 Other: # Bowel Movements 0 Laboratory Results - last 24 hr 08/27/18 08/27/18 08/27/18 13:10 13:10 13:10 WBC 11.1 H RBC 2.46 L Hgb 8.0 L Hct 24.4 L MCV 98.9 MCH 32.6 MCHC 32.9 RDW 20.6 H Plt Count 200 MPV 7.7 Neut % (Auto) 85.1 H Lymph % (Auto) 8.8 L [place] % (Auto) 5.4 Eos % (Auto) 0.3 Baso % (Auto) 0.4 Neut # (Auto) 9.4 H Lymph # (Auto) 1.0 [place] # (Auto) 0.6 Eos # (Auto) 0.0 Baso # (Auto) 0.0 WBC Differential . Differential Comment Auto diff final PT 11.1 INR 1.1 APTT 31.8 H Sodium 132 L Potassium 5.8 H Chloride 102 Carbon Dioxide 16.3 L Anion Gap 14 BUN 76 H Creatinine 3.44 H Estimated GFR 18 L POC Glucose Random Glucose 95 Lactic Acid Calcium 8.9 Phosphorus Magnesium 2.1 Total Bilirubin 0.5 Direct Bilirubin AST 28 ALT 21 Alkaline Phosphatase 79 Ammonia Total Creatine Kinase CK-MB (CK-2) Troponin I Total Protein 6.7 Albumin 2.9 L TSH Urine Color Urine Clarity Urine pH Ur Specific [place] Urine Protein Urine Glucose (UA) Urine Ketones Urine Occult Blood Urine Nitrate Urine Bilirubin Urine Urobilinogen Ur Leukocyte Esterase Urine WBC Granular Casts Urine Mucus Micro UA Comment Ur Microscopic Review Urine Culture Comments Urine Eosinophils Ur Random Creatinine Ur Random Sodium Nasal Screen MRSA (PCR) Stl C.difficile DNA Amp St C. diff Tox Epid 027 Blood Type Antibody Screen MTS Gel Crossmatch 08/27/18 08/27/18 08/27/18 13:10 13:10 13:10 WBC RBC Hgb Hct MCV MCH MCHC RDW Plt Count MPV Neut % (Auto) Lymph % (Auto) [place] % (Auto) Eos % (Auto) Baso % (Auto) Neut # (Auto) Lymph # (Auto) [place] # (Auto) Eos # (Auto) Baso # (Auto) WBC Differential Differential Comment PT INR APTT Sodium Potassium Chloride Carbon Dioxide Anion Gap BUN Creatinine Estimated GFR POC Glucose Random Glucose Lactic Acid 1.4 Calcium Phosphorus Magnesium Total Bilirubin Direct Bilirubin AST ALT Alkaline Phosphatase Ammonia Total Creatine Kinase 161 CK-MB (CK-2) 6.7 H Troponin I Less than 0.02 L Total Protein Albumin TSH Urine Color Urine Clarity Urine pH Ur Specific [place] Urine Protein Urine Glucose (UA) Urine Ketones Urine Occult Blood Urine Nitrate Urine Bilirubin Urine Urobilinogen Ur Leukocyte Esterase Urine WBC Granular Casts Urine Mucus Micro UA Comment Ur Microscopic Review Urine Culture Comments Urine Eosinophils Ur Random Creatinine Ur Random Sodium Nasal Screen MRSA (PCR) Stl C.difficile DNA Amp St C. diff Tox Epid 027 Blood Type A Positive Antibody Screen Negative MTS Gel Crossmatch 08/27/18 08/27/18 08/27/18 13:10 15:20 21:00 WBC RBC Hgb Hct MCV MCH MCHC RDW Plt Count MPV Neut % (Auto) Lymph % (Auto) [place] % (Auto) Eos % (Auto) Baso % (Auto) Neut # (Auto) Lymph # (Auto) [place] # (Auto) Eos # (Auto) Baso # (Auto) WBC Differential Differential Comment PT INR APTT Sodium Potassium Chloride Carbon Dioxide Anion Gap BUN Creatinine Estimated GFR POC Glucose Random Glucose Lactic Acid Calcium Phosphorus Magnesium Total Bilirubin Direct Bilirubin AST ALT Alkaline Phosphatase Ammonia Total Creatine Kinase CK-MB (CK-2) Troponin I Total Protein Albumin TSH Urine Color Yellow Urine Clarity Clear Urine pH 5.0 Ur Specific [place] 1.010 Urine Protein Negative Urine Glucose (UA) Negative Urine Ketones Negative Urine Occult Blood Negative Urine Nitrate Negative Urine Bilirubin Negative Urine Urobilinogen Less than 2 Ur Leukocyte Esterase Trace H Urine WBC Less than 1 Granular Casts 5 Urine Mucus Few H Micro UA Comment Culture not ind Ur Microscopic Review Not Reportable Urine Culture Comments Culture not ind Urine Eosinophils Ur Random Creatinine 39 Ur Random Sodium 71 Nasal Screen MRSA (PCR) Stl C.difficile DNA Amp St C. diff Tox Epid 027 Blood Type Antibody Screen MTS Gel Crossmatch See Detail 08/27/18 08/27/18 08/27/18 21:00 21:15 22:32 WBC RBC Hgb Hct MCV MCH MCHC RDW Plt Count MPV Neut % (Auto) Lymph % (Auto) [place] % (Auto) Eos % (Auto) Baso % (Auto) Neut # (Auto) Lymph # (Auto) [place] # (Auto) Eos # (Auto) Baso # (Auto) WBC Differential Differential Comment PT INR APTT Sodium Potassium Chloride Carbon Dioxide Anion Gap BUN Creatinine Estimated GFR POC Glucose Random Glucose Lactic Acid Calcium Phosphorus Magnesium Total Bilirubin Direct Bilirubin AST ALT Alkaline Phosphatase Ammonia 20 Total Creatine Kinase CK-MB (CK-2) Troponin I Total Protein Albumin TSH Urine Color Urine Clarity Urine pH Ur Specific [place] Urine Protein Urine Glucose (UA) Urine Ketones Urine Occult Blood Urine Nitrate Urine Bilirubin Urine Urobilinogen Ur Leukocyte Esterase Urine WBC Granular Casts Urine Mucus Micro UA Comment Ur Microscopic Review Urine Culture Comments Urine Eosinophils None seen Ur Random Creatinine Ur Random Sodium Nasal Screen MRSA (PCR) Not detected Stl C.difficile DNA Amp St C. diff Tox Epid 027 Blood Type Antibody Screen MTS Gel Crossmatch 08/27/18 08/28/18 08/28/18 22:32 03:10 03:10 WBC 5.4 D RBC 2.83 L Hgb 9.4 L Hct 26.9 L MCV 95.1 D MCH 33.3 MCHC 35.0 RDW 18.1 H D Plt Count 156 MPV 7.2 Neut % (Auto) 93.5 H Lymph % (Auto) 4.7 L [place] % (Auto) 1.4 Eos % (Auto) 0.1 Baso % (Auto) 0.3 Neut # (Auto) 5.0 Lymph # (Auto) 0.3 L [place] # (Auto) 0.1 Eos # (Auto) 0.0 Baso # (Auto) 0.0 WBC Differential . Differential Comment Auto diff final PT 11.4 INR 1.1 APTT Sodium 138 Potassium 4.6 D Chloride 112 H D Carbon Dioxide 16.2 L Anion Gap 10 BUN 53 H Creatinine 2.10 H Estimated GFR 31 L POC Glucose Random Glucose 111 H Lactic Acid Calcium 8.7 Phosphorus Magnesium Total Bilirubin 1.7 H Direct Bilirubin 0.4 H AST 27 ALT 20 Alkaline Phosphatase 57 Ammonia Total Creatine Kinase CK-MB (CK-2) Troponin I Total Protein 5.4 L D Albumin 2.6 L TSH 0.387 Urine Color Urine Clarity Urine pH Ur Specific [place] Urine Protein Urine Glucose (UA) Urine Ketones Urine Occult Blood Urine Nitrate Urine Bilirubin Urine Urobilinogen Ur Leukocyte Esterase Urine WBC Granular Casts Urine Mucus Micro UA Comment Ur Microscopic Review Urine Culture Comments Urine Eosinophils Ur Random Creatinine Ur Random Sodium Nasal Screen MRSA (PCR) Stl C.difficile DNA Amp St C. diff Tox Epid 027 Blood Type Antibody Screen MTS Gel Crossmatch 08/28/18 08/28/18 08/28/18 03:10 03:10 06:15 WBC RBC Hgb Hct MCV MCH MCHC RDW Plt Count MPV Neut % (Auto) Lymph % (Auto) [place] % (Auto) Eos % (Auto) Baso % (Auto) Neut # (Auto) Lymph # (Auto) [place] # (Auto) Eos # (Auto) Baso # (Auto) WBC Differential Differential Comment PT INR APTT Sodium 140 Potassium 5.0 Chloride 112 H Carbon Dioxide 20.0 L Anion Gap 8 BUN 46 H Creatinine 1.84 H Estimated GFR 37 L POC Glucose Random Glucose 113 H Lactic Acid 0.9 Calcium 8.5 Phosphorus 4.1 Magnesium 1.9 Total Bilirubin 2.9 H Direct Bilirubin AST 32 ALT 21 Alkaline Phosphatase 58 Ammonia Total Creatine Kinase CK-MB (CK-2) Troponin I Total Protein 5.4 L Albumin 2.6 L TSH Urine Color Urine Clarity Urine pH Ur Specific [place] Urine Protein Urine Glucose (UA) Urine Ketones Urine Occult Blood Urine Nitrate Urine Bilirubin Urine Urobilinogen Ur Leukocyte Esterase Urine WBC Granular Casts Urine Mucus Micro UA Comment Ur Microscopic Review Urine Culture Comments Urine Eosinophils Ur Random Creatinine Ur Random Sodium Nasal Screen MRSA (PCR) Stl C.difficile DNA Amp Negative St C. diff Tox Epid 027 Negative Blood Type Antibody Screen MTS Gel Crossmatch 08/28/18 10:52 WBC RBC Hgb Hct MCV MCH MCHC RDW Plt Count MPV Neut % (Auto) Lymph % (Auto) [place] % (Auto) Eos % (Auto) Baso % (Auto) Neut # (Auto) Lymph # (Auto) [place] # (Auto) Eos # (Auto) Baso # (Auto) WBC Differential Differential Comment PT INR APTT Sodium Potassium Chloride Carbon Dioxide Anion Gap BUN Creatinine Estimated GFR POC Glucose 92 Random Glucose Lactic Acid Calcium Phosphorus Magnesium Total Bilirubin Direct Bilirubin AST ALT Alkaline Phosphatase Ammonia Total Creatine Kinase CK-MB (CK-2) Troponin I Total Protein Albumin TSH Urine Color Urine Clarity Urine pH Ur Specific [place] Urine Protein Urine Glucose (UA) Urine Ketones Urine Occult Blood Urine Nitrate Urine Bilirubin Urine Urobilinogen Ur Leukocyte Esterase Urine WBC Granular Casts Urine Mucus Micro UA Comment Ur Microscopic Review Urine Culture Comments Urine Eosinophils Ur Random Creatinine Ur Random Sodium Nasal Screen MRSA (PCR) Stl C.difficile DNA Amp St C. diff Tox Epid 027 Blood Type Antibody Screen MTS Gel Crossmatch Microbiology 08/27/18 13:10 Aerobic Blood Culture - Preliminary Blood - Peripheral No growth in 1 day Anaerobic Blood Culture - Preliminary No growth in 1 day 08/27/18 13:05 Aerobic Blood Culture - Preliminary Blood - Peripheral No growth in 1 day Anaerobic Blood Culture - Preliminary No growth in 1 day Impressions Chest X-Ray 08/27/18 12:58 CONCLUSION: Negative examination. Abdomen/Pelvis CT 08/27/18 19:18 CONCLUSION: 1. There are stable postsurgical changes noted as well as stranding of the intra-abdominal fat in the left upper quadrant and mid to lower abdomen, not significantly changed.
[2018-08-28] MEDS: Magnesium Oxide 400 MG Tablet PO SCH (13:43)
--- NOTE | 2018-08-28 13:53 | MB ---
cc: Anahy Gilbert MD DATE: 08/27/2018 REASON FOR CONSULTATION: Malaise, weakness status post colon resection with primary anastomosis for a perforation. HISTORY OF PRESENT ILLNESS: This 68-year-old gentleman presented to my office today, a month followup extended left colectomy and primary anastomosis with perforated colon with diverting ileostomy. The patient had a very nasty unusually looking perforation that occurred in the retroperitoneum that caused a fair amount of retroperitoneal emphysema and gas even tracking into the chest. The patient initially improved, but then required surgery. Postoperative course was fairly uneventful. The patient had a large collection in the left pericolic gutter that was drained and treated with antibiotics. On discharge, the patient was awake, alert and oriented, taking a p.o. diet, having bowel movements through the primary anastomosis in the distal colon, low anterior anastomosis in the distal colon as well as ileostomy. Now, 2 weeks later, he comes back to my office and he just does not look right. The patient is weak, lost about 10-15 pounds, nausea, vomiting, dizziness, and appears to be pale and sort of in functional decline. The patient was therefore, sent to the emergency room to be admitted to medicine hence this note. I saw the patient in my office, then in the emergency room. PHYSICAL EXAMINATION: GENERAL: He is awake and alert or oriented. HEENT: Pupils equal, reactive. Extraocular muscles intact. Appears to be somewhat gaunt with dry mucous membranes. CARDIOVASCULAR: Regular rhythm, sinus tachycardia. The patient is hypotensive in my office pressure was 80/50 and the patient was tachycardic, which was the initial concern to be sent to the emergency room rather than elective admission the same day. ABDOMEN: Soft. No rebound. no guarding, no masses. Incision is healed and dry. There are no collections. Ileostomy is working fine, it is clean and there is gas and fluid, so the patient has no bowel obstruction. Pelvis is normal. EXTREMITIES: Within normal limits with decreased turgor. NEUROLOGIC: The patient is intact. IMPRESSION: I reviewed laboratory and diagnostic procedures. The patient is fairly dehydrated with prerenal azotemia and creatinine 3.4 with increased BUN, consistent with hypovolemia and dehydration. He is also anemic. He will be given 2 units PRBC rehydrated, about 4-5 liters of crystalloids and we will see which way this goes. At this point, I do not know why the patient was nauseous and vomited for a few days. It might have been from the antibiotics that were given in the emergency room, I guess, last week or it might be something unrelated to this that contributed, may be viral disease. At this point, the patient needs to be admitted. Critical Care Medicine will be consulted. The patient will be placed in the ICU and he should probably improve within the next 24-48 hours. Infectious disease has been consulted. Initially, the patient was on Zyvox and antifungals, which may need to be resumed, but this will be up to infectious disease specialist. Again, he is not quite clear how the patient suddenly got worse in the few days, but we will treat him symptomatically and see which way it goes. I thank you very much for this referral. MD JOLLY Morton/elise , 12:40 PM , 12:50 PM
--- NOTE | 2018-08-28 15:48 | ECG ---
Date Performed: 08/27/2018 Time Performed: 13:07:30 PTAGE: 68 years EKG: Sinus rhythm POSSIBLE INFERIOR MYOCARDIAL INFARCTION Since the previous tracing, no significant change noted BORD PAETL ECG PREVIOUS TRACING : 08/22/2018 10.38 DOCTOR: Keisha Warner Interpretating Date/Time 08/28/2018 15:45:58
--- NOTE | 2018-08-28 15:48 | ECG ---
Date Performed: 08/27/2018 Time Performed: 17:13:59 PTAGE: 68 years EKG: Sinus rhythm POSSIBLE INFERIOR MYOCARDIAL INFARCTION Since the previous tracing, no significant change noted BORAmy PATEL ECG PREVIOUS TRACING : 08/27/2018 13.07 DOCTOR: Keisha Warner Interpretating Date/Time 08/28/2018 15:45:50
[2018-08-28] MEDS: Meloxicam 15 MG Tablet PO SCH (17:21)
--- NOTE | 2018-08-28 18:28 | P.PNID ---
Subjective Remarks: "Im doing much better" no fevers hypotension resolved + liquid stool, c. diff negative CT findings dw Dr Douglas no drainable abscess on CT Antibiotics: zyvox cefepime flagyl micafungin Allergies/Adverse Reactions: Allergies No Known Allergies Allergy (Uncoded 10/30/13 06:40) Objective Vital Signs 08/27/18 18:28 08/27/18 18:30 08/27/18 18:45 Temperature Pulse Rate 83 92 H 92 H Respiratory Rate 18 25 H 20 Blood Pressure 82/51 L 88/50 L 91/51 L Pulse Oximetry 98 97 100 08/27/18 19:00 08/27/18 19:15 08/27/18 19:19 Temperature Pulse Rate 97 H 92 H 90 Respiratory Rate 23 17 18 Blood Pressure 99/58 L 109/56 L Pulse Oximetry 87 L 94 L 08/27/18 19:30 08/27/18 19:45 08/27/18 20:00 Temperature Pulse Rate 100 H 104 H 102 H Respiratory Rate 25 H 22 20 Blood Pressure 111/59 L 100/50 L 98/54 L Pulse Oximetry 100 96 08/27/18 20:15 08/27/18 20:30 08/27/18 20:35 Temperature 99.0 F Pulse Rate 100 H 99 H 102 H Respiratory Rate 22 22 22 Blood Pressure 92/51 L 105/51 L 105/51 L Pulse Oximetry 97 98 96 08/27/18 20:45 08/27/18 21:00 08/27/18 21:15 Temperature Pulse Rate 97 H 95 H 93 H Respiratory Rate 22 14 43 H Blood Pressure 98/53 L 97/51 L 108/57 L Pulse Oximetry 97 89 L 90 L 08/27/18 21:20 08/27/18 21:30 08/27/18 21:45 Temperature 98.9 F Pulse Rate 90 90 91 H Respiratory Rate 18 21 23 Blood Pressure 108/57 L 95/52 L 105/56 L Pulse Oximetry 98 98 08/27/18 22:00 08/27/18 22:15 08/27/18 22:30 Temperature Pulse Rate 90 90 94 H Respiratory Rate 21 23 22 Blood Pressure 97/53 L 97/51 L 100/56 L Pulse Oximetry 97 97 97 08/27/18 22:45 08/27/18 22:53 08/27/18 23:00 Temperature 98.7 F Pulse Rate 90 88 88 Respiratory Rate 22 24 23 Blood Pressure 98/53 L 98/53 L 105/57 L Pulse Oximetry 95 96 97 08/27/18 23:15 08/27/18 23:30 08/27/18 23:45 Temperature Pulse Rate 87 87 86 Respiratory Rate 22 24 22 Blood Pressure 95/50 L 95/53 L 109/55 L Pulse Oximetry 95 94 L 99 08/28/18 00:00 08/28/18 00:15 08/28/18 00:30 Temperature Pulse Rate 87 87 95 H Respiratory Rate 23 23 44 H Blood Pressure 107/56 L 107/55 L 125/60 Pulse Oximetry 97 96 91 L 08/28/18 00:45 08/28/18 01:00 08/28/18 01:09 Temperature Pulse Rate 86 88 Respiratory Rate 21 22 22 Blood Pressure 112/57 L 101/59 L Pulse Oximetry 95 96 08/28/18 01:15 08/28/18 01:30 08/28/18 01:45 Temperature Pulse Rate 88 86 86 Respiratory Rate 23 19 21 Blood Pressure 96/52 L 108/57 L 102/58 L Pulse Oximetry 97 97 96 08/28/18 02:00 08/28/18 02:15 08/28/18 02:30 Temperature Pulse Rate 85 89 82 Respiratory Rate 22 17 18 Blood Pressure 101/56 L 110/59 L 104/55 L Pulse Oximetry 96 98 97 08/28/18 02:45 08/28/18 03:00 08/28/18 03:15 Temperature Pulse Rate 81 84 79 Respiratory Rate 19 22 20 Blood Pressure 112/60 104/55 L 107/57 L Pulse Oximetry 99 97 100 08/28/18 03:30 08/28/18 03:45 08/28/18 04:00 Temperature 98.5 F Pulse Rate 77 76 78 Respiratory Rate 19 21 38 H Blood Pressure 109/61 108/59 L 116/63 Pulse Oximetry 99 99 97 08/28/18 04:15 08/28/18 04:30 08/28/18 04:45 Temperature Pulse Rate 77 81 82 Respiratory Rate 20 22 22 Blood Pressure 104/55 L 103/55 L 103/55 L Pulse Oximetry 97 96 96 08/28/18 05:00 08/28/18 05:15 08/28/18 05:30 Temperature Pulse Rate 82 80 79 Respiratory Rate 23 22 24 Blood Pressure 102/55 L 104/59 L 100/59 L Pulse Oximetry 96 97 96 08/28/18 05:45 08/28/18 06:00 08/28/18 06:15 Temperature Pulse Rate 78 91 H 74 Respiratory Rate 21 35 H 20 Blood Pressure 104/57 L 125/58 L 111/61 Pulse Oximetry 96 98 97 08/28/18 06:30 08/28/18 06:45 08/28/18 07:00 Temperature Pulse Rate 78 72 73 Respiratory Rate 21 19 20 Blood Pressure 118/65 119/67 117/64 Pulse Oximetry 98 99 99 08/28/18 07:15 08/28/18 07:30 08/28/18 07:45 Temperature Pulse Rate 75 74 76 Respiratory Rate 21 21 23 Blood Pressure 109/60 113/58 L 110/59 L Pulse Oximetry 96 96 96 08/28/18 08:00 08/28/18 08:15 08/28/18 08:30 Temperature 98.8 F Pulse Rate 87 80 75 Respiratory Rate 31 H 28 H 16 Blood Pressure 119/60 120/63 120/65 Pulse Oximetry 99 98 98 08/28/18 08:45 08/28/18 09:00 08/28/18 09:15 Temperature Pulse Rate 80 79 82 Respiratory Rate 22 21 22 Blood Pressure 115/63 111/57 L 100/57 L Pulse Oximetry 100 97 94 L 08/28/18 09:30 08/28/18 09:45 08/28/18 10:00 Temperature Pulse Rate 82 88 83 Respiratory Rate 24 26 H 23 Blood Pressure 105/58 L 117/67 103/59 L Pulse Oximetry 93 L 92 L 100 08/28/18 10:15 08/28/18 10:30 08/28/18 10:34 Temperature Pulse Rate 77 82 Respiratory Rate 22 26 H 16 Blood Pressure 100/57 L 101/58 L Pulse Oximetry 100 100 08/28/18 10:45 08/28/18 11:00 08/28/18 11:24 Temperature Pulse Rate 73 82 78 Respiratory Rate 23 44 H 24 Blood Pressure 121/63 111/64 129/60 Pulse Oximetry 100 83 L 08/28/18 11:30 08/28/18 11:45 08/28/18 12:00 Temperature 98.6 F Pulse Rate 78 77 71 Respiratory Rate 32 H 26 H 19 Blood Pressure 116/65 115/69 109/67 Pulse Oximetry 08/28/18 12:15 08/28/18 12:30 08/28/18 12:45 Temperature Pulse Rate 68 73 71 Respiratory Rate 19 22 20 Blood Pressure 116/67 103/58 L 105/60 Pulse Oximetry 08/28/18 13:00 08/28/18 13:15 08/28/18 13:24 Temperature Pulse Rate 67 68 Respiratory Rate 20 18 18 Blood Pressure 104/58 L 103/55 L Pulse Oximetry 08/28/18 13:30 08/28/18 13:45 08/28/18 14:00 Temperature Pulse Rate 67 76 64 Respiratory Rate 20 29 H 21 Blood Pressure 108/60 114/67 112/63 Pulse Oximetry 08/28/18 14:15 08/28/18 14:30 08/28/18 14:45 Temperature Pulse Rate 63 65 73 Respiratory Rate 18 21 39 H Blood Pressure 108/60 110/64 114/64 Pulse Oximetry 08/28/18 15:00 08/28/18 15:15 08/28/18 15:30 Temperature Pulse Rate 63 72 71 Respiratory Rate 17 21 30 H Blood Pressure 125/64 120/68 119/73 Pulse Oximetry 08/28/18 15:45 08/28/18 16:00 08/28/18 16:15 Temperature 98.1 F Pulse Rate 73 82 74 Respiratory Rate 23 32 H 20 Blood Pressure 155/86 H 115/65 117/61 Pulse Oximetry 08/28/18 16:30 08/28/18 16:45 08/28/18 17:00 Temperature Pulse Rate 78 83 80 Respiratory Rate 21 24 23 Blood Pressure 111/59 L 109/59 L 98/54 L Pulse Oximetry 99 98 98 08/28/18 17:08 08/28/18 17:16 08/28/18 17:21 Temperature Pulse Rate 88 89 Respiratory Rate 43 H 32 H 16 Blood Pressure 100/58 L 115/59 L Pulse Oximetry 98 89 L 08/28/18 17:30 08/28/18 17:45 08/28/18 18:00 Temperature Pulse Rate 79 77 79 Respiratory Rate 24 18 20 Blood Pressure 105/57 L 99/57 L 106/57 L Pulse Oximetry 99 97 96 Intake & Output 08/27/18 08/28/18 08/28/18 18:59 06:59 18:59 Intake Total 3100 / 3100 4350 / 4350 1220 / 1220 Output Total 1675 / 1675 Balance 3100 / 3100 2675 / 2675 1220 / 1220 Weight 70.307 kg 77.5 kg Intake: IV 3100 / 3100 3310 / 3310 500 / 500 Sodium Bicarbonate 8.4% Inj 75 1000 / 1000 MEQ In 1/2 Normal Saline Inj 925 ML @ 125 mls/hr IV.CONT . Q8H [facility] Rx#:[id number] Alburx 5% Inj 500 ML @ 4 mls/ 1000 / 1000 min IV.SIG ONCE ONE Rx#: [id number] Calcium Chloride Inj 1 GM In NS 110 / 110 Inj 100 ML @ 110 mls/hr IV.SIG ONCE ONE Rx#:[id number] Maxipime Inj 2,000 MG In NS Inj 100 / 100 100 ML @ 200 mls/hr IV.SIG Q24H [facility] Rx#:[id number] Zyvox 600 mg Premix 300 ML @ 300 / 300 300 / 300 300 mls/hr IV.SIG Q12H [facility] Rx#: [id number] Mycamine Inj 150 MG In NS Inj 100 / 100 100 ML @ 100 mls/hr IV.SIG Q24H [facility] Rx#:[id number] Zosyn 4.5 GM Premix 4.5 gm In 100 / 100 100 ml @ 200 mls/hr IV.SIG ONCE [facility] Rx#:[id number] NS Inj 1,000 ML @ 1000 mls/hr 3000 / 3000 IV.SIG BOLUS [facility] Rx#:[id number] NS Inj 500 ML @ 1000 mls/hr IV. 500 / 500 SIG BOLUS [facility] Rx#:[id number] Flagyl 500 MG Inj 100 ML @ 100 200 / 200 200 / 200 mls/hr IV.SIG Q6H [facility] Rx#: [id number] Oral 240 / 240 720 / 720 Intake (Blood Product) Amt 800 / 800 Rbc As-3 Leukoreduced Unit 400 / 400 [id number] Rbc As-3 Leukoreduced Unit 400 / 400 [id number] Output: Urine 1425 / 1425 Stool Amount (Stoma) 250 / 250 Right Lower Abdomen 250 / 250 Other: # Voids 4 # Bowel Movements 0 08/27/18 13:10 Blood - Peripheral Aerobic Blood Culture - Preliminary No growth in 1 day 08/27/18 13:10 Blood - Peripheral Anaerobic Blood Culture - Preliminary No growth in 1 day 08/27/18 13:05 Blood - Peripheral Aerobic Blood Culture - Preliminary No growth in 1 day 08/27/18 13:05 Blood - Peripheral Anaerobic Blood Culture - Preliminary No growth in 1 day Lab - Hematology Results 08/27/18 08/28/18 13:10 03:10 WBC 11.1 H 5.4 D RBC 2.46 L 2.83 L Hgb 8.0 L 9.4 L Hct 24.4 L 26.9 L MCV 98.9 95.1 D MCH 32.6 33.3 MCHC 32.9 35.0 RDW 20.6 H 18.1 H D Plt Count 200 156 MPV 7.7 7.2 Neut % (Auto) 85.1 H 93.5 H Lymph % (Auto) 8.8 L 4.7 L [place] % (Auto) 5.4 1.4 Eos % (Auto) 0.3 0.1 Baso % (Auto) 0.4 0.3 Neut # (Auto) 9.4 H 5.0 Lymph # (Auto) 1.0 0.3 L [place] # (Auto) 0.6 0.1 Eos # (Auto) 0.0 0.0 Baso # (Auto) 0.0 0.0 WBC Differential . . Differential Comment Auto diff final Auto diff final Lab - Chemistry Results 08/27/18 08/27/18 08/27/18 13:10 13:10 13:10 Sodium 132 L Potassium 5.8 H Chloride 102 Carbon Dioxide 16.3 L Anion Gap 14 BUN 76 H Creatinine 3.44 H Estimated GFR 18 L POC Glucose Random Glucose 95 Lactic Acid 1.4 Calcium 8.9 Phosphorus Magnesium 2.1 Total Bilirubin 0.5 Direct Bilirubin AST 28 ALT 21 Alkaline Phosphatase 79 Ammonia Total Creatine Kinase 161 CK-MB (CK-2) 6.7 H Troponin I Less than 0.02 L Total Protein 6.7 Albumin 2.9 L TSH 08/27/18 08/27/18 08/28/18 22:32 22:32 03:10 Sodium 138 140 Potassium 4.6 D 5.0 Chloride 112 H D 112 H Carbon Dioxide 16.2 L 20.0 L Anion Gap 10 8 BUN 53 H 46 H Creatinine 2.10 H 1.84 H Estimated GFR 31 L 37 L POC Glucose Random Glucose 111 H 113 H Lactic Acid Calcium 8.7 8.5 Phosphorus 4.1 Magnesium 1.9 Total Bilirubin 1.7 H 2.9 H Direct Bilirubin 0.4 H AST 27 32 ALT 20 21 Alkaline Phosphatase 57 58 Ammonia 20 Total Creatine Kinase CK-MB (CK-2) Troponin I Total Protein 5.4 L D 5.4 L Albumin 2.6 L 2.6 L TSH 0.387 08/28/18 08/28/18 03:10 10:52 Sodium Potassium Chloride Carbon Dioxide Anion Gap BUN Creatinine Estimated GFR POC Glucose 92 Random Glucose Lactic Acid 0.9 Calcium Phosphorus Magnesium Total Bilirubin Direct Bilirubin AST ALT Alkaline Phosphatase Ammonia Total Creatine Kinase CK-MB (CK-2) Troponin I Total Protein Albumin TSH Imaging: ITS Impressions Chest X-Ray 08/27/18 12:58 CONCLUSION: Negative examination. Abdomen/Pelvis CT 08/27/18 19:18 CONCLUSION: 1. There are stable postsurgical changes noted as well as stranding of the intra-abdominal fat in the left upper quadrant and mid to lower abdomen, not significantly changed. Physical Exam: GENERAL: NAD SKIN: Warm and dry. no rash HEAD: Atraumatic. Normocephalic. EYES: Pupils equal and round. No scleral icterus. No injection or drainage. ENT: No nasal bleeding or discharge. Mucous membranes pink and moist. NECK: Trachea midline. No JVD. CARDIOVASCULAR: Regular rate and rhythm. RESPIRATORY: No accessory muscle use. Clear to auscultation. Breath sounds equal bilaterally. GASTROINTESTINAL: Abdomen soft, non-tender, nondistended. Hepatic and splenic margins not palpable. stoma in plxcace with small amount of liquid stool hyperactive BS MUSCULOSKELETAL: Extremities without clubbing, cyanosis, or edema. No obvious deformities. NEUROLOGICAL: Awake and alert. No obvious cranial nerve deficits. Motor grossly within normal limits. Five out of 5 muscle strength in the arms and legs. Normal speech. PSYCHIATRIC: Appropriate mood and affect; insight and judgment normal. Assessment and Plan - Plan sp Left colon perforation with a retroperitoneal abscess and leak into the abdominal cavity 1 mo ago; Grew multiple MDRO including Klebsiell, VRE, MRSA and Sarita glabrata sp Extended left colectomy, takedown of splenic flexure, sigmoid resection and low anterior anastomosis, diverting ileostomy. Sepsis, likely intraabdominal sp no drainable abscess on CT suspect intraabd abscess much improved and hemodynamically stable ARF: resolved Hypotension: resolved cont cefepime, flagyl, zyvox fu BC cont micafungin for C glabrata dw Dr Gilbert
[2018-08-28] MEDS: Micafungin Inj 150 MG in Sodium Chlor 0.9% Inj 100 ML IV.SIG SCH (21:41)
[2018-08-29] MEDS: Chlorhexidine Gluconate 2% 1 Pack (2 Cloths) TOPICAL SCH (03:04)
[2018-08-29 06:16] LABS: Baso % (Auto) 0.3 % (0.0-2.0); Eos % (Auto) 0.4 % (0.0-4.0); Hematocrit 27.3 % (39.0-51.0); Hemoglobin 9.5 gm/dL (13.0-17.0); Lymph % (Auto) 15.4 % (9.0-44.0); Mean Corpuscular HGB Conc 34.8 % (32.0-36.0); Mean Corpuscular Hemoglobin 33.3 pg (27.0-34.0); Mean Corpuscular Volume 95.9 fL (80.0-100.0); Mean Platelet Volume 7.1 fL (7.0-11.0); Mono # (Auto) 0.2 th/mm3 (0.0-0.9); Mono % (Auto) 2.8 % (0.0-8.0); Neut # (Auto) 5.1 th/mm3 (1.8-7.7); Neut % (Auto) 81.1 % (16.0-70.0); Platelet Count 184 th/mm3 (150-450); Red Blood Count 2.85 mil/mm3 (4.50-5.90); Red Cell Distribution Width 18.1 % (11.6-17.2); White Blood Count 6.2 th/mm3 (4.0-11.0)
[2018-08-29 06:46] LABS: Alanine Aminotransferase 28 U/L (12-78); Albumin 2.7 g/dL (3.4-5.0); Alkaline Phosphatase 64 U/L (45-117); Anion Gap 8 meq/L (5-15); Aspartate Aminotransferase 35 U/L (15-37); Blood Urea Nitrogen 30 mg/dL (7-18); Calcium 8.3 mg/dL (8.5-10.1); Carbon Dioxide 21.1 meq/L (21.0-32.0); Chloride 112 meq/L (98-107); Glomerular Filtration Rate 61 mL/min (>89); Glucose,Random 99 mg/dL (74-106); Potassium 4.4 meq/L (3.5-5.1); Sodium 141 meq/L (136-145); Total Protein 6.1 g/dL (6.4-8.2)
[2018-08-29] MEDS: Folic Acid 1 MG Tablet PO SCH (08:18)
[2018-08-29] MEDS: Multivit/Folic Acid/Minerals Chewable Tablets CHEW SCH (08:18)
[2018-08-29] MEDS: predniSONE 5 MG Tablet PO SCH ×3 (08:19→19:02)
[2018-08-29] MEDS: Famotidine PF Inj 20 MG/2 ML Vial IV.PUSH SCH ×2 (08:19→20:35)
[2018-08-29] MEDS: Lactobacillus Acidophilus/L. Spores Tablet PO SCH ×3 (08:19→19:02)
[2018-08-29] MEDS: Senna/Docusate Sodium 8.6/50 MG Tablet PO SCH ×3 (08:19→20:36)
[2018-08-29] MEDS: Heparin - SQ 10,000 UNITS/ML Vial SQ SCH ×3 (08:22→23:33)
[2018-08-29] MEDS: Magnesium Oxide 400 MG Tablet PO SCH (11:04)
[2018-08-29] MEDS: Hydroxychloroquine 200 MG Tablet PO SCH ×2 (11:04→20:36)
[2018-08-29] MEDS ORDERED: Temazepam 15 MG Capsule PO PRN (11:19)
--- NOTE | 2018-08-29 11:19 | P.PNIM ---
Subjective Interval history: No acute complaints from patient today. Vital signs and blood work continues to show good signs of improvement. Renal function has returned to normal. Physical Exam Vital signs: Last Vital Signs Temp 97.6 F 08/29/18 08:00 Pulse 62 08/29/18 08:00 Resp 23 08/29/18 11:03 BP 126/90 08/29/18 08:00 Pulse Ox 97 08/29/18 08:00 Intake & Output 08/27/18 08/28/18 08/29/18 08/30/18 06:59 06:59 06:59 06:59 Intake Total 7450 / 7450 2960 / 2960 Output Total 1675 / 1675 1100 / 1100 140 / 140 Balance 5775 / 5775 1860 / 1860 -140 / -140 Weight 77.5 kg Narrative: GENERAL: NAD, A&Ox3 HEAD: Normocephalic. NECK: Supple, trachea midline. No lymphadenopathy. EYES: No scleral icterus. No injection or drainage. CARDIOVASCULAR: Regular rate and rhythm without murmurs, gallops, or rubs. RESPIRATORY: Breath sounds equal bilaterally. No accessory muscle use. GASTROINTESTINAL: Abdomen soft, non-tender, nondistended. MUSCULOSKELETAL: No cyanosis, or edema. SKIN: Warm and dry. Midline abdominal scar, healing well. Right-sided colostomy bag. NEURO: No focal neurological deficits. Results Labs CBC & Chem 7: 08/29/18 05:52 08/29/18 05:52 Labs: Microbiology 08/27/18 13:10 Blood - Peripheral Aerobic Blood Culture - Preliminary No growth in 2 days 08/27/18 13:10 Blood - Peripheral Anaerobic Blood Culture - Preliminary No growth in 2 days 08/27/18 13:05 Blood - Peripheral Aerobic Blood Culture - Preliminary No growth in 2 days 08/27/18 13:05 Blood - Peripheral Anaerobic Blood Culture - Preliminary No growth in 2 days Assessment and Plan Plan 68-year-old male admitted secondary to abdominal pain and hypotension with possible postop abdominal infection Improved compared to yesterday. IV hydration discontinued, renal function returned to baseline. Continue antibiotics. Hypotension Possible sepsis Fluid boluses provided Continue IV hydration Monitor in ICU Start pressors as needed Abdominal pain Possible sepsis Possible postop infection History of VRE Status post right ileostomy Zosyn discontinued Continue Flagyl, Zyvox, cefepime, micafungin Probiotics Surgical team following Infectious disease team following Screen for C. Diff is negative CT of abdomen when renal function improves BHARATH Resolved Avoid nephrotoxins History of hypertension All BP meds are placed on hold given hypotension Follow blood pressures DVT prophylaxis SCDs
--- NOTE | 2018-08-29 15:33 | P.PNVS ---
Subjective Subjective/Hospital Course: 68-year-old gentleman who underwent 1 month ago left colon resection with primary low anterior anastomosis and diverting right lower quadrant ileostomy for perforated descending colon and huge retroperitoneal abscess Patient did well for 2 weeks in the hospital and was discharged home 2 weeks ago. Patient now comes to my office for follow-up and states that he lost about 15 pounds and feels weak worn and anorexic Indeed patient is in functional decline and reason for this remains elusive Abdomen is soft no rebound no guarding no masses Ileostomy is functioning well Patient appears to be hypotensive dehydrated and volume constricted Renal function is impaired with creatinine of 3.7 and rising BUN Majority of this is prerenal and will treat as such with fluids and electrolytes He will be infused about 3 L of normal saline and extravascular and intravascular volume will be replenished Once creatinine BUN normalized patient will undergo CT scan of abdomen and pelvis to evaluate for any collections I suspect the patient is a low-grade indolent abscess area some more in the left pericolic gutter and is placed on IV antibiotics We will consult infectious disease Will continue to follow patient with you Thanks Misael 08/28/2018 Patient doing much better this morning He is awake alert and oriented Laboratory studies have improved and patient's prerenal azotemia and hypovolemia is almost completely resolved with resolution of elevation of creatinine and BUN Patient received 2 units of PRBC as well as 4 L of crystalloids and some colloids Hemodynamically he is now stable Bilateral good breath sounds lungs are clear CT scan of abdomen and pelvis does not reveal any retained collections and is consistent with postoperative changes inflammatory edema in the left adriano- abdominal wall Critical care consult is greatly appreciated and so is the infectious disease care Patient can be transferred to the floor and advance to the diet and we will see how things go 08/29/2018 Patient is awake alert oriented in much better shape than when he came Bilateral good breath sounds Ambulating with ease Abdomen soft active bowel sounds and ileostomy working well Renal function is returned to normal I have nothing to add from surgical point in this gentleman can be discharged when okay with infectious disease and medicine I plan to reverse his ileostomy probably sometimes in October Objective Vital Signs / I&O: Vital Signs 08/28/18 15:30 08/28/18 15:45 08/28/18 16:00 Temperature 98.1 F Pulse Rate 71 73 82 Respiratory Rate 30 H 23 32 H Blood Pressure 119/73 155/86 H 115/65 Pulse Oximetry 08/28/18 16:15 08/28/18 16:30 08/28/18 16:45 Temperature Pulse Rate 74 78 83 Respiratory Rate 20 21 24 Blood Pressure 117/61 111/59 L 109/59 L Pulse Oximetry 99 98 08/28/18 17:00 08/28/18 17:08 08/28/18 17:16 Temperature Pulse Rate 80 88 89 Respiratory Rate 23 43 H 32 H Blood Pressure 98/54 L 100/58 L 115/59 L Pulse Oximetry 98 98 89 L 08/28/18 17:21 08/28/18 17:30 08/28/18 17:45 Temperature Pulse Rate 79 77 Respiratory Rate 16 24 18 Blood Pressure 105/57 L 99/57 L Pulse Oximetry 99 97 08/28/18 18:00 08/28/18 18:15 08/28/18 18:30 Temperature Pulse Rate 79 83 91 H Respiratory Rate 20 29 H 39 H Blood Pressure 106/57 L 104/57 L 109/62 Pulse Oximetry 96 96 97 08/28/18 18:45 08/28/18 19:00 08/28/18 19:10 Temperature Pulse Rate 79 87 Respiratory Rate 20 28 H Blood Pressure 107/58 L 106/57 L Pulse Oximetry 97 95 96 08/28/18 19:15 08/28/18 19:30 08/28/18 19:45 Temperature Pulse Rate 91 H 84 80 Respiratory Rate 36 H 25 H 33 H Blood Pressure 125/62 104/61 100/58 L Pulse Oximetry 96 96 96 08/28/18 20:00 08/28/18 20:15 08/28/18 20:30 Temperature 98.3 F Pulse Rate 79 81 80 Respiratory Rate 22 23 27 H Blood Pressure 91/54 L 103/55 L 122/71 Pulse Oximetry 95 95 96 08/28/18 20:45 08/28/18 21:00 08/28/18 21:15 Temperature Pulse Rate 89 82 77 Respiratory Rate 44 H 26 H 21 Blood Pressure 98/55 L 100/57 L 102/59 L Pulse Oximetry 94 L 97 96 08/28/18 21:30 08/28/18 21:45 08/28/18 22:00 Temperature Pulse Rate 79 73 73 Respiratory Rate 26 H 22 19 Blood Pressure 98/59 L 110/61 97/55 L Pulse Oximetry 96 96 95 08/28/18 22:15 08/28/18 22:30 08/28/18 22:45 Temperature Pulse Rate 72 83 72 Respiratory Rate 18 36 H 29 H Blood Pressure 98/61 L 118/60 117/65 Pulse Oximetry 95 95 97 08/28/18 23:00 08/28/18 23:15 08/28/18 23:30 Temperature Pulse Rate 71 69 69 Respiratory Rate 20 18 24 Blood Pressure 104/55 L 102/55 L 109/63 Pulse Oximetry 96 96 97 08/28/18 23:45 08/28/18 23:49 08/29/18 00:00 Temperature 98.5 F Pulse Rate 76 67 Respiratory Rate 33 H 14 19 Blood Pressure 129/69 113/61 Pulse Oximetry 94 L 97 08/29/18 00:15 08/29/18 00:30 08/29/18 00:45 Temperature Pulse Rate 68 71 66 Respiratory Rate 20 19 17 Blood Pressure 113/65 122/65 116/66 Pulse Oximetry 95 95 94 L 08/29/18 01:00 08/29/18 01:15 08/29/18 01:30 Temperature Pulse Rate 66 68 69 Respiratory Rate 17 17 16 Blood Pressure 116/65 122/73 118/67 Pulse Oximetry 94 L 95 95 08/29/18 01:45 08/29/18 02:00 08/29/18 02:15 Temperature Pulse Rate 69 79 69 Respiratory Rate 18 20 19 Blood Pressure 111/60 114/63 121/64 Pulse Oximetry 94 L 95 96 08/29/18 02:30 08/29/18 02:45 08/29/18 03:00 Temperature Pulse Rate 68 68 69 Respiratory Rate 19 21 21 Blood Pressure 110/59 L 112/67 118/65 Pulse Oximetry 95 96 96 08/29/18 03:15 08/29/18 03:30 08/29/18 03:45 Temperature Pulse Rate 63 64 66 Respiratory Rate 21 26 H 19 Blood Pressure 133/71 126/67 126/69 Pulse Oximetry 97 97 96 08/29/18 04:00 08/29/18 04:15 08/29/18 04:30 Temperature 98.6 F Pulse Rate 72 67 69 Respiratory Rate 17 21 24 Blood Pressure 129/70 133/72 132/72 Pulse Oximetry 96 95 96 08/29/18 05:15 08/29/18 08:00 08/29/18 11:03 Temperature 97.6 F Pulse Rate 64 Respiratory Rate 18 19 23 Blood Pressure 126/90 Pulse Oximetry 97 08/29/18 12:00 08/29/18 14:00 Temperature 97.9 F Pulse Rate 81 63 Respiratory Rate 21 Blood Pressure 144/70 H Pulse Oximetry Intake & Output 08/28/18 08/29/18 08/29/18 18:59 06:59 18:59 Intake Total 2019 940 / 940 1050 / 1050 Output Total 1100 / 1100 585 / 585 Balance 2019 -160 / -160 465 / 465 Weight 77.5 kg Intake: IV 1300 / 1300 700 / 700 400 / 400 Maxipime Inj 2,000 MG In NS Inj 100 / 100 100 ML @ 200 mls/hr IV.SIG Q24H [facility] Rx#:[id number] Zyvox 600 mg Premix 300 ML @ 300 / 300 300 / 300 300 / 300 300 mls/hr IV.SIG Q12H [facility] Rx#: [id number] Mycamine Inj 150 MG In NS Inj 100 / 100 100 ML @ 100 mls/hr IV.SIG Q24H [facility] Rx#:[id number] Flagyl 500 MG Inj 100 ML @ 100 200 / 200 200 / 200 100 / 100 mls/hr IV.SIG Q6H [facility] Rx#: [id number] Oral 720 / 720 240 / 240 650 / 650 Output: Urine 700 / 700 460 / 460 Stool 125 / 125 Stool Amount (Stoma) 400 / 400 Right Lower Abdomen 400 / 400 Other: # Voids 4 1 Date of Last Bowel Movement 08/29/18 Weight On Admission 77.5 kg Laboratory Results - last 24 hr 08/29/18 08/29/18 05:52 05:52 WBC 6.2 RBC 2.85 L Hgb 9.5 L Hct 27.3 L MCV 95.9 MCH 33.3 MCHC 34.8 RDW 18.1 H Plt Count 184 MPV 7.1 Neut % (Auto) 81.1 H Lymph % (Auto) 15.4 [place] % (Auto) 2.8 Eos % (Auto) 0.4 Baso % (Auto) 0.3 Neut # (Auto) 5.1 Lymph # (Auto) 1.0 [place] # (Auto) 0.2 Eos # (Auto) 0.0 Baso # (Auto) 0.0 WBC Differential . Differential Comment Auto diff final Sodium 141 Potassium 4.4 Chloride 112 H Carbon Dioxide 21.1 Anion Gap 8 BUN 30 H Creatinine 1.18 Estimated GFR 61 L Random Glucose 99 Calcium 8.3 L Total Bilirubin 0.8 AST 35 ALT 28 Alkaline Phosphatase 64 Total Protein 6.1 L D Albumin 2.7 L Microbiology 08/27/18 13:10 Aerobic Blood Culture - Preliminary Blood - Peripheral No growth in 2 days Anaerobic Blood Culture - Preliminary No growth in 2 days 08/27/18 13:05 Aerobic Blood Culture - Preliminary Blood - Peripheral No growth in 2 days Anaerobic Blood Culture - Preliminary No growth in 2 days Impressions Abdomen/Pelvis CT 08/27/18 19:18 CONCLUSION: 1. There are stable postsurgical changes noted as well as stranding of the intra-abdominal fat in the left upper quadrant and mid to lower abdomen, not significantly changed.
[2018-08-29] MEDS: Meloxicam 15 MG Tablet PO SCH (19:02)
[2018-08-29] MEDS: Micafungin Inj 150 MG in Sodium Chlor 0.9% Inj 100 ML IV.SIG SCH (20:34)
[2018-08-30 00:07] VITALS: TEMP 98.7
[2018-08-30] MEDS: Chlorhexidine Gluconate 2% 1 Pack (2 Cloths) TOPICAL SCH (04:38)
[2018-08-30] MEDS: Multivit/Folic Acid/Minerals Chewable Tablets CHEW SCH (08:39)
[2018-08-30] MEDS: Lactobacillus Acidophilus/L. Spores Tablet PO SCH ×2 (08:39→13:05)
[2018-08-30] MEDS: predniSONE 5 MG Tablet PO SCH ×2 (08:39→13:05)
[2018-08-30] MEDS: Folic Acid 1 MG Tablet PO SCH (08:39)
[2018-08-30] MEDS: Famotidine PF Inj 20 MG/2 ML Vial IV.PUSH SCH (08:40)
[2018-08-30] MEDS: Hydroxychloroquine 200 MG Tablet PO SCH (08:40)
[2018-08-30] MEDS: Heparin - SQ 10,000 UNITS/ML Vial SQ SCH ×2 (08:41→15:50)
[2018-08-30] MEDS: Senna/Docusate Sodium 8.6/50 MG Tablet PO SCH (08:42)
--- NOTE | 2018-08-30 09:53 | P.PNVS ---
Subjective Subjective/Hospital Course: 68-year-old gentleman who underwent 1 month ago left colon resection with primary low anterior anastomosis and diverting right lower quadrant ileostomy for perforated descending colon and huge retroperitoneal abscess Patient did well for 2 weeks in the hospital and was discharged home 2 weeks ago. Patient now comes to my office for follow-up and states that he lost about 15 pounds and feels weak worn and anorexic Indeed patient is in functional decline and reason for this remains elusive Abdomen is soft no rebound no guarding no masses Ileostomy is functioning well Patient appears to be hypotensive dehydrated and volume constricted Renal function is impaired with creatinine of 3.7 and rising BUN Majority of this is prerenal and will treat as such with fluids and electrolytes He will be infused about 3 L of normal saline and extravascular and intravascular volume will be replenished Once creatinine BUN normalized patient will undergo CT scan of abdomen and pelvis to evaluate for any collections I suspect the patient is a low-grade indolent abscess area some more in the left pericolic gutter and is placed on IV antibiotics We will consult infectious disease Will continue to follow patient with you Thanks J 08/28/2018 Patient doing much better this morning He is awake alert and oriented Laboratory studies have improved and patient's prerenal azotemia and hypovolemia is almost completely resolved with resolution of elevation of creatinine and BUN Patient received 2 units of PRBC as well as 4 L of crystalloids and some colloids Hemodynamically he is now stable Bilateral good breath sounds lungs are clear CT scan of abdomen and pelvis does not reveal any retained collections and is consistent with postoperative changes inflammatory edema in the left adriano- abdominal wall Critical care consult is greatly appreciated and so is the infectious disease care Patient can be transferred to the floor and advance to the diet and we will see how things go 08/29/2018 Patient is awake alert oriented in much better shape than when he came Bilateral good breath sounds Ambulating with ease Abdomen soft active bowel sounds and ileostomy working well Renal function is returned to normal I have nothing to add from surgical point in this gentleman can be discharged when okay with infectious disease and medicine I plan to reverse his ileostomy probably sometimes in 08/30/2018 Patient doing well he is awake alert and oriented P.o. diet is very well tolerated and the ileostomy is working fine Patient passing gas through the rectum but obviously majority of stool is coming through the ileostomy considering the diversion Laboratory studies are unremarkable and renal function has returned to normal Patient can be discharged anytime Objective Vital Signs / I&O: Vital Signs 08/29/18 11:03 08/29/18 12:00 08/29/18 14:00 Temperature 97.9 F Pulse Rate 81 63 Respiratory Rate 23 21 Blood Pressure 144/70 H Pulse Oximetry 08/29/18 16:00 08/29/18 17:00 08/29/18 18:00 Temperature 97.7 F Pulse Rate 67 66 68 Respiratory Rate 22 16 18 Blood Pressure 160/81 H Pulse Oximetry 97 99 97 08/29/18 19:00 08/29/18 19:04 08/29/18 19:16 Temperature 98.6 F Pulse Rate 80 90 Respiratory Rate 24 22 28 H Blood Pressure Pulse Oximetry 97 98 08/29/18 20:46 08/29/18 20:47 08/29/18 21:00 Temperature 98.6 F 98.6 F Pulse Rate 72 72 75 Respiratory Rate 20 19 22 Blood Pressure 160/78 H Pulse Oximetry 94 L 08/29/18 22:00 08/29/18 23:00 08/29/18 23:39 Temperature Pulse Rate 70 65 63 Respiratory Rate 44 H 25 H 25 H Blood Pressure 126/67 Pulse Oximetry 87 L 97 98 08/30/18 00:00 08/30/18 01:00 08/30/18 02:00 Temperature 98.7 F Pulse Rate 66 66 64 Respiratory Rate 20 18 20 Blood Pressure 126/67 Pulse Oximetry 96 97 95 08/30/18 04:00 08/30/18 08:51 Temperature 98.7 F Pulse Rate 71 Respiratory Rate 18 Blood Pressure 147/71 H Pulse Oximetry 96 Intake & Output 08/29/18 08/30/18 08/30/18 18:59 06:59 18:59 Intake Total 1510 / 1510 700 / 700 Output Total 1395 / 1395 550 / 550 Balance 115 / 115 150 / 150 Weight 77.5 kg 74.2 kg Intake: IV 500 / 500 700 / 700 Maxipime Inj 2,000 MG In NS Inj 100 / 100 100 ML @ 200 mls/hr IV.SIG Q24H [facility] Rx#:[id number] Zyvox 600 mg Premix 300 ML @ 300 / 300 300 / 300 300 mls/hr IV.SIG Q12H [facility] Rx#: [id number] Mycamine Inj 150 MG In NS Inj 100 / 100 100 ML @ 100 mls/hr IV.SIG Q24H [facility] Rx#:[id number] Flagyl 500 MG Inj 100 ML @ 100 200 / 200 200 / 200 mls/hr IV.SIG Q6H [facility] Rx#: [id number] Oral 1010 / 1010 Output: Urine 1070 / 1070 550 / 550 Stool 125 / 125 Stool Amount (Stoma) 200 / 200 Right Lower Abdomen 200 / 200 Other: # Voids 2 Date of Last Bowel Movement 08/29/18 08/29/18 Weight On Admission 77.5 kg Microbiology 08/27/18 13:10 Aerobic Blood Culture - Preliminary Blood - Peripheral No growth in 2 days Anaerobic Blood Culture - Preliminary No growth in 2 days 08/27/18 13:05 Aerobic Blood Culture - Preliminary Blood - Peripheral No growth in 2 days Anaerobic Blood Culture - Preliminary No growth in 2 days
[2018-08-30 10:20] VITALS: BP 134/88
--- NOTE | 2018-08-30 10:34 | P.DCO ---
Home Health Nursing Order: Medical education, Signs/symptoms of disease process and Nursing assessment with vital signs Instructions: Antibiotic Administration as ordered Case Management Consult Case Management Consult-Home Health: Yes I have seen patient Zach Moreira on 08/30/18. My clinical findings support the need for the requested home health care services because: Limited mobility due to disease progression, Infection with risk of complications and Injectable medication education/administration I certify that my clinical findings support that this patient is homebound because: Post-op weakness, Unsteady gait/balance and Unable to use public transportation
--- NOTE | 2018-08-30 10:36 | P.DS ---
DS: Providers Date of admission: 08/27/18 14:11 Primary care physician: Mayela Mondragon Consults: 08/27/18 14:30 Consult to General Surgery Routine Consulting Provider: Anahy Gilbert Worm Picker:: Anahy Gilbert Patient known to:: Anahy Gilbert Reason for Consultation: Abdominal Pain, post op infection suspected Notified:: Physician Spoke with:: Dr. Douglas Date Notified:: 08/27/18 Time Notified:: 14:35 Ordering Provider: ALLA Consult to Infectious Diseases Routine Consulting Provider: Alvarez Oro Reason for Consultation: Abdominal Pain, post op infection suspected Notified:: Service Spoke with:: Susan Date Notified:: 08/27/18 Time Notified:: 14:35 Ordering Provider: ALLA 08/28/18 08:11 Consult to Hospitalist Routine Consulting Provider: Jose Elias Restrepo Patient known to:: Jose Elias Restrepo Reason for Consultation: continuation of medical management, ok to move out of [facility] 08/28 Notified:: Service Spoke with:: Marlene Date Notified:: 08/28/18 Time Notified:: 08:27 Comments:: waiting on assignment - ML Ordering Provider: CAMRYN Brief History from admission: Mr. Moreira is a 68-year-old male. On July 28 he had a bowel perforation and complications of VRE, this required a diverting ileostomy. He has been following as an outpatient with Dr. Douglas. As an outpatient he has been on antibiotics. The patient reports for the past 2 days he has been nauseous with poor p.o. intake. Abdominal pain has been present. He has been fatigued with chills. He had a visit with Dr. Douglas today and was sent to the hospital. Here he is found to be hypotensive. Slight increase in white blood cell count, with a neutrophil shift. Sepsis criteria are not fully present though hypotension could be related to sepsis or dehydration. Fluid boluses are in process. No other complaints at this time. DS: Summary Mr. Moreira is a 68-year-old male. He was admitted secondary to signs of infection and sepsis in the presence of a recent bowel surgery. He has a prior history of VRE infection of the peritoneum perioperatively. He was treated with Zyvox, metronidazole, micafungin, and cefepime while here. He has been improving. He is feeling back to baseline. Appetite present. Energy is present. Medically stable for discharge. Patient will need to continue antibiotics as an outpatient. ID has selected antibiotic regime which will include IV treatments. Pain will be 10 days of Flagyl, Levaquin, micafungin, and Linezolid. Micafungin and Linezolid will be provided IV with home health. Midline to be placed prior to discharge and patient medically stable and cleared for discharge home today. Time Spent with Patient Total time spent providing and/or coordinating discharge services: Results Labs on day of discharge: Preliminary micro results at discharge 08/27/18 13:10 Aerobic Blood Culture - Preliminary Blood - Peripheral No growth in 2 days Anaerobic Blood Culture - Preliminary No growth in 2 days 08/27/18 13:05 Aerobic Blood Culture - Preliminary Blood - Peripheral No growth in 2 days Anaerobic Blood Culture - Preliminary No growth in 2 days Impressions ITS Impressions Chest X-Ray 08/27/18 12:58 CONCLUSION: Negative examination. Abdomen/Pelvis CT 08/27/18 19:18 CONCLUSION: 1. There are stable postsurgical changes noted as well as stranding of the intra-abdominal fat in the left upper quadrant and mid to lower abdomen, not significantly changed. Discharge Plan Discharge Disposition Patient Disposition: W/Home Health Service Discharge Condition Condition: Stable Discharge Order Discharge Orders: Discharge Order (Routine); Ordered 08/30/18 Ordered By: Jose Elias Restrepo Discharge Details Anticipated Discharge Date: 08/30/18 Discharge Comment: After outpatient antibiotics arranged and after picc vs. midline placed Physicians Team Attending Provider: Jose Elias Restrepo Other Providers: Anahy Gilbert ; Alvarez Oro ; Kwame Castaneda ; Jose Elias Restrepo ; Carole Gregorio Rxs /Orders / Referrals /Forms Prescriptions: New acidophilus-sporogenes [Acidophilus Ex Str (L. sporog)] 35 million- 25 million cell Tablet 1 tab PO TID Qty: 60 RF: 0 metronidazole [Flagyl] 500 mg tablet 500 mg PO Q6H Qty: 40 RF: 0 levofloxacin [Levaquin] 500 mg tablet 500 mg PO DAILY 10 Days Qty: 10 RF: 0 linezolid-0.9% sodium chloride 600 mg/300 mL parenteral solution 600 mg IV.SIG Q12H 10 Days Qty: 6000 RF: 0 micafungin 100 mg recon soln 150 mg IV.SIG Q24H Qty: 10 RF: 0 levofloxacin [Levaquin] 750 mg tablet 750 mg PO DAILY 10 Days Qty: 10 RF: 0 Continue meloxicam 15 mg Tablet 15 mg PO QPM RF: 0 hydrocodone-acetaminophen 10-325 mg Tablet 1 tab PO Q6H PRN (Reason: Pain) RF: 0 aspirin [Aspir-Low] 81 mg Tablet,Delayed Release (Dr/Ec) 81 mg PO HS RF: 0 methotrexate sodium 2.5 mg Tablet 8 mg PO QWEEK RF: 0 folic acid 1 mg Tablet 1 mg PO DAILY RF: 0 magnesium 250 mg Tablet 500 mg PO QAM RF: 0 hydroxychloroquine 200 mg Tablet 200 mg PO BID RF: 0 prednisone 5 mg Tablet 5 mg PO TID Qty: 90 RF: 0 atorvastatin [Lipitor] 40 mg Tablet 40 mg PO HS Qty: 30 RF: 1 Discontinued omeprazole 20 mg Capsule,Delayed Release(Dr/Ec) 20 mg PO QPM RF: 0 hydralazine 50 mg Tablet 50 mg PO TID RF: 0 oxycodone-acetaminophen [Percocet] 5-325 mg Tablet 1 tab PO Q4-6H PRN (Reason: Pain (Scale Score 7-10)) Qty: 12 RF: 0 lisinopril 20 mg Tablet 20 mg PO DAILY RF: 0 metronidazole [Flagyl] 500 mg tablet 500 mg PO BID Qty: 14 RF: 0 Referrals: Mayela Mondragon [Other] - See Instructions Priyanka Puente MD [Family Provider] - See Instructions Status ED Status: Left Department
--- NOTE | 2018-08-30 10:50 | P.DCO ---
Post Hospital Infusion Therapy - Infusion Therapy Location of Infusion Therapy: Home Health Care IV Infusion Order - Patient Information Patient Weight: 74.2 kg - Diagnosis (1) Sepsis Code(s): A41.9 - Sepsis, unspecified organism (2) Diverticulitis of colon with perforation Code(s): K57.20 - Diverticulitis of large intestine with perforation and abscess without bleeding - Administer Medication Micafungin Dose: 150 mg IV Directions: q 24 hours Start Treatment: 08/31/18 Stop Treatment: 09/09/18 - Additional Information Venous Access: PICC Line Additional Instructions: [x] Peripheral flush and dressing changes per protocol [x] Implanted port and central pipelines supervisor: * Implanted port: 10 ml Normal Saline followed by 5 ml Heparin 100 units/ml Heparin flush after each use and monthly to maintain. [] May leave port accessed during therapy. [] May leave peripheral site accessed for duration of therapy. [x] If patient has SOB or respiratory distress, check oxygen saturation. If less than 90% or clinical signs of respiratory distress, administer oxygen at 2 L/min. via nasal cannula and notify physician. [x] Anaphylaxis/Reaction orders: * Stop infusion. * Keep IV line open with saline flush. * Notify physician. * Monitor vital signs every 15 minutes until symptoms resolve. * Check Oxygen saturation; Oxygen at 2 L/min. via nasal cannula if less than 90% or clinical signs of respiratory distress. * Administer diphenhydramine (Benadryl) 25 mg IV STAT, (unless patient has received as pre-med). May repeat once, if necessary. * Solu-Cortef 250 mg IVP over 30-60 seconds, use 100 mg vials for each dissolution. * Epinephrine (1mg/1 ml) 0.3 mg subcutaneously or IVP now with any signs of respiratory distress. * Check with physician for new additional pre-med orders if patient is re- challenged or re-treated. [x] May remove PICC line when treatment complete, after confirming with Physician. [x] If the patient is admitted to the hospital, the ED, or transferred via [facility] , complete transfer form including medication reconciliation order sheet. Weekly Labs: CBC w/diff, CMP - Case Management Consult Case Management Consult-IVF: Yes - Patient Information Allergies No Known Allergies Allergy (Verified 08/29/18 14:41) (1) Sepsis Qualifiers: Sepsis type: sepsis due to unspecified organism Qualified Code(s): A41.9 - Sepsis, unspecified organism (2) Diverticulitis of colon with perforation Qualifiers: Diverticulitis bleeding: unspecified bleeding status Qualified Code(s): K57.20 - Diverticulitis of large intestine with perforation and abscess without bleeding
--- NOTE | 2018-08-30 10:58 | P.PNID ---
Subjective Remarks: doing well ready to go home no pain Antibiotics: zyvox cefepime flagyl micafungin Allergies/Adverse Reactions: Allergies No Known Allergies Allergy (Verified 08/29/18 14:41) Objective Vital Signs 08/29/18 11:03 08/29/18 12:00 08/29/18 14:00 Temperature 97.9 F Pulse Rate 81 63 Respiratory Rate 23 21 Blood Pressure 144/70 H Pulse Oximetry 08/29/18 16:00 08/29/18 17:00 08/29/18 18:00 Temperature 97.7 F Pulse Rate 67 66 68 Respiratory Rate 22 16 18 Blood Pressure 160/81 H Pulse Oximetry 97 99 97 08/29/18 19:00 08/29/18 19:04 08/29/18 19:16 Temperature 98.6 F Pulse Rate 80 90 Respiratory Rate 24 22 28 H Blood Pressure Pulse Oximetry 97 98 08/29/18 20:46 08/29/18 20:47 08/29/18 21:00 Temperature 98.6 F 98.6 F Pulse Rate 72 72 75 Respiratory Rate 20 19 22 Blood Pressure 160/78 H Pulse Oximetry 94 L 08/29/18 22:00 08/29/18 23:00 08/29/18 23:39 Temperature Pulse Rate 70 65 63 Respiratory Rate 44 H 25 H 25 H Blood Pressure 126/67 Pulse Oximetry 87 L 97 98 08/30/18 00:00 08/30/18 01:00 08/30/18 02:00 Temperature 98.7 F Pulse Rate 66 66 64 Respiratory Rate 20 18 20 Blood Pressure 126/67 Pulse Oximetry 96 97 95 08/30/18 03:00 08/30/18 03:31 08/30/18 04:00 Temperature 98.7 F Pulse Rate 63 65 71 Respiratory Rate 20 27 H 18 Blood Pressure 147/71 H Pulse Oximetry 95 98 08/30/18 04:11 08/30/18 04:12 08/30/18 05:26 Temperature Pulse Rate 78 65 Respiratory Rate 20 Blood Pressure 146/74 H Pulse Oximetry 95 96 08/30/18 06:26 08/30/18 07:00 08/30/18 08:00 Temperature Pulse Rate 67 65 71 Respiratory Rate 23 23 Blood Pressure Pulse Oximetry 94 L 97 98 08/30/18 08:46 08/30/18 08:51 08/30/18 09:00 Temperature Pulse Rate 80 81 73 Respiratory Rate 25 H 37 H 21 Blood Pressure 134/88 Pulse Oximetry 96 98 08/30/18 10:00 Temperature Pulse Rate 69 Respiratory Rate 25 H Blood Pressure Pulse Oximetry 98 Intake & Output 08/29/18 08/30/18 08/30/18 18:59 06:59 18:59 Intake Total 1510 / 1510 700 / 700 400 / 400 Output Total 1395 / 1395 550 / 550 Balance 115 / 115 150 / 150 400 / 400 Weight 77.5 kg 74.2 kg 74.2 kg Intake: IV 500 / 500 700 / 700 400 / 400 Maxipime Inj 2,000 MG In NS Inj 100 / 100 100 ML @ 200 mls/hr IV.SIG Q24H [facility] Rx#:[id number] Zyvox 600 mg Premix 300 ML @ 300 / 300 300 / 300 300 / 300 300 mls/hr IV.SIG Q12H [facility] Rx#: [id number] Mycamine Inj 150 MG In NS Inj 100 / 100 100 ML @ 100 mls/hr IV.SIG Q24H [facility] Rx#:[id number] Flagyl 500 MG Inj 100 ML @ 100 200 / 200 200 / 200 100 / 100 mls/hr IV.SIG Q6H [facility] Rx#: [id number] Oral 1010 / 1010 Output: Urine 1070 / 1070 550 / 550 Stool 125 / 125 Stool Amount (Stoma) 200 / 200 Right Lower Abdomen 200 / 200 Other: # Voids 2 Date of Last Bowel Movement 08/29/18 08/29/18 Weight On Admission 77.5 kg 08/27/18 13:10 Blood - Peripheral Aerobic Blood Culture - Preliminary No growth in 2 days 08/27/18 13:10 Blood - Peripheral Anaerobic Blood Culture - Preliminary No growth in 2 days 08/27/18 13:05 Blood - Peripheral Aerobic Blood Culture - Preliminary No growth in 2 days 08/27/18 13:05 Blood - Peripheral Anaerobic Blood Culture - Preliminary No growth in 2 days Lab - Hematology Results 08/29/18 05:52 WBC 6.2 RBC 2.85 L Hgb 9.5 L Hct 27.3 L MCV 95.9 MCH 33.3 MCHC 34.8 RDW 18.1 H Plt Count 184 MPV 7.1 Neut % (Auto) 81.1 H Lymph % (Auto) 15.4 Bath % (Auto) 2.8 Eos % (Auto) 0.4 Baso % (Auto) 0.3 Neut # (Auto) 5.1 Lymph # (Auto) 1.0 Bath # (Auto) 0.2 Eos # (Auto) 0.0 Baso # (Auto) 0.0 WBC Differential . Differential Comment Auto diff final Lab - Chemistry Results 08/28/18 08/29/18 10:52 05:52 Sodium 141 Potassium 4.4 Chloride 112 H Carbon Dioxide 21.1 Anion Gap 8 BUN 30 H Creatinine 1.18 Estimated GFR 61 L POC Glucose 92 Random Glucose 99 Calcium 8.3 L Total Bilirubin 0.8 AST 35 ALT 28 Alkaline Phosphatase 64 Total Protein 6.1 L D Albumin 2.7 L Imaging: ITS Impressions Chest X-Ray 08/27/18 12:58 CONCLUSION: Negative examination. Abdomen/Pelvis CT 08/27/18 19:18 CONCLUSION: 1. There are stable postsurgical changes noted as well as stranding of the intra-abdominal fat in the left upper quadrant and mid to lower abdomen, not significantly changed. Physical Exam: GENERAL: NAD SKIN: Warm and dry. no rash CARDIOVASCULAR: Regular rate and rhythm. RESPIRATORY: No accessory muscle use. Clear to auscultation. Breath sounds equal bilaterally. GASTROINTESTINAL: Abdomen soft, non-tender, nondistended. Hepatic and splenic margins not palpable. stoma in place with small amount of liquid stool active BS MUSCULOSKELETAL: Extremities without clubbing, cyanosis, or edema. No obvious deformities. NEUROLOGICAL: Awake and alert. Non focal Assessment and Plan (1) Sepsis Status: Acute Code(s): A41.9 - Sepsis, unspecified organism (2) Diverticulitis of colon with perforation Status: Acute Code(s): K57.20 - Diverticulitis of large intestine with perforation and abscess without bleeding - Plan sp Left colon perforation with a retroperitoneal abscess and leak into the abdominal cavity 1 mo ago; Grew multiple MDRO including Klebsiell, VRE, MRSA and Sarita glabrata sp Extended left colectomy, takedown of splenic flexure, sigmoid resection and low anterior anastomosis, diverting ileostomy. Sepsis, likely intraabdominal sp no drainable abscess on CT suspect intraabd abscess much improved and hemodynamically stable ARF: resolved Hypotension: resolved cont at home 10 days of Levaquine 500 mg , flagyl 500 tid zyvox 600 BID and IV micafungin PICC (midline OK as well) OPAT filled out case mngr for [facility] OK to dc home fu with Ofelia Love (1) Sepsis Qualifiers: Sepsis type: sepsis due to unspecified organism Qualified Code(s): A41.9 - Sepsis, unspecified organism (2) Diverticulitis of colon with perforation Qualifiers: Diverticulitis bleeding: unspecified bleeding status Qualified Code(s): K57.20 - Diverticulitis of large intestine with perforation and abscess without bleeding
[2018-08-30] MEDS: Magnesium Oxide 400 MG Tablet PO SCH (11:33)
[2018-08-30 12:34] VITALS: O2SAT 96
[2018-08-30] MEDS: Micafungin Inj 150 MG in Sodium Chlor 0.9% Inj 100 ML IV.SIG SCH (15:56)
[2018-08-30 16:56] VITALS: PULSE 71
[2018-08-30 16:58] VITALS: RESP 20
== END 2018-08-30 17:30 | disposition home health service (06) ==
LOC: NEPC 12:32 → NEDA 14:11 → N03 17:40
PROVIDERS: ADMIT Hospitalist; ATTEND Hospitalist

== ENCOUNTER 2018-10-23 12:11 | Inpatient (IN) ==
[2018-10-23 14:48] LABS: Baso % (Auto) 0.4 % (0.0-2.0); Eos % (Auto) 0.2 % (0.0-4.0); Hematocrit 33.6 % (39.0-51.0); Hemoglobin 11.4 gm/dL (13.0-17.0); Lymph # (Auto) 1.3 th/mm3 (1.0-4.8); Lymph % (Auto) 10.7 % (9.0-44.0); Mean Corpuscular HGB Conc 33.9 % (32.0-36.0); Mean Corpuscular Hemoglobin 32.9 pg (27.0-34.0); Mean Corpuscular Volume 97.2 fL (80.0-100.0); Mean Platelet Volume 7.5 fL (7.0-11.0); Mono # (Auto) 0.6 th/mm3 (0.0-0.9); Mono % (Auto) 5.1 % (0.0-8.0); Neut # (Auto) 10.1 th/mm3 (1.8-7.7); Neut % (Auto) 83.6 % (16.0-70.0); Platelet Count 366 th/mm3 (150-450); Red Blood Count 3.46 mil/mm3 (4.50-5.90); Red Cell Distribution Width 17.5 % (11.6-17.2); White Blood Count 12.1 th/mm3 (4.0-11.0)
--- NOTE | 2018-10-23 14:52 | ED ---
HPI General Chief complaint: Skin/Abscess/Foreign Body Stated complaint: Poss Foot Infection/Dr Sent Time Seen by Provider: 10/23/18 13:34 Source: patient Mode of arrival: ambulatory Limitations: no limitations History of Present Illness HPI narrative: 68-year-old male presents to emergency department evaluation of an ulcer to the right foot that started a couple of weeks ago. He was advised to come into the emergency department by Dr. Velázquez for possible admission to Dr. Dixon. Patient believes the ulcer started as a result of the swelling, atrophy and use of compression socks but he is unsure. He denies inciting events otherwise. He denies fever or chills. Says he has mild to moderate pain to the right lower extremity and is concerned about the redness. He denies unusual nausea or vomiting. His concern is that the infection has gone from his stomach to his foot. He says he saw his primary care physician yesterday who placed him on Bactrim. Says he took 2-3 doses of this prior to coming in today. He notes no improvement in his symptoms. MD complaint: Reports discoloration Onset (ago): day(s) Location: Reports R foot Severity: moderate Quality: Reports aching Pain Consistency: constant Relieving factors: none Exacerbating factors: none Context: Reports recent antibiotic (Bactrim DS x1 day) Associated symptoms: Reports denies other symptoms Treatments prior to arrival: Reports none Related Data Home Medications Medication Instructions Recorded Confirmed aspirin [Aspir-Low] 81 mg PO HS 07/22/18 10/23/18 folic acid 1 mg PO DAILY 07/22/18 10/23/18 hydrocodone-acetaminophen 1 tab PO Q6H PRN 07/22/18 10/23/18 hydroxychloroquine 200 mg PO BID 07/22/18 10/23/18 magnesium 500 mg PO QAM 07/22/18 10/23/18 meloxicam 15 mg PO QPM 07/22/18 10/23/18 methotrexate sodium 8 mg PO QWEEK 07/22/18 10/23/18 Previous Rx's Medication Instructions Recorded atorvastatin [Lipitor] 40 mg PO HS #30 tab 08/08/18 acidophilus-sporogenes 1 tab PO TID #60 tab 08/30/18 [Acidophilus Ex Str (L. sporog)] omeprazole 20 mg PO DAILY #30 cap 09/08/18 ondansetron 4 mg PO Q6H PRN #20 tab 09/08/18 Allergies Allergy/AdvReac Type Severity Reaction Status Date / Time No Known Allergies Allergy Verified 10/23/18 13:46 Review of Systems ROS: all other systems reviewed are negative [facility] Social History Social History Substance History: No History of Abuse Second Hand Smoke Exposure: No Smoking Status: Former smoker Tobacco Type: Cigarettes How Often Do You Have a Drink Containing Alcohol: Never Immunization History Tetanus Immunization: >5 Years Exam Narrative Exam Narrative: GENERAL: WD, WN in NAD SKIN: Focused skin assessment warm/dry. HEAD: Atraumatic. Normocephalic. EYES: Pupils equal and round. No scleral icterus. No injection or drainage. ENT: No nasal bleeding or discharge. Mucous membranes pink and moist. No tonsillar hypertrophy or exudate. NECK: Trachea midline. No JVD. No meningismus. No midline tenderness. CARDIOVASCULAR: Regular rate and rhythm. No murmur appreciated. RESPIRATORY: No accessory muscle use. Clear to auscultation. Breath sounds equal bilaterally. GASTROINTESTINAL: Abdomen soft, non-tender, nondistended. No CVAT. MUSCULOSKELETAL: No obvious deformities. No clubbing. No cyanosis. No edema. No tenderness to palpation of the calves. Sensation intact to bilateral lower extremities. 1-1/2 cm x 1 cm superficial ulcer to the dorsal medial aspect of the foot with surrounding erythema and edema. The edema extends to the toes and ankle. Full range of motion of toes and ankles bilaterally. Sensation intact light touch. Dorsalis pedis pulse is noted bilateral feet. There is mild erythema extending up the ankle and cheung. The distal second toe has a small 2-3 mm crusting ulcer without tenderness to palpation. There is an sharp appearing ulcer to the lateral aspect of the fifth toe that family states is chronic for him. NEUROLOGICAL: Awake and alert. No obvious cranial nerve deficits. Motor grossly within normal limits. Normal speech. PSYCHIATRIC: Appropriate mood and affect; insight and judgment normal. Course Initial Documented Vital Signs Temperature 97.9 F 10/23/18 12:15 Pulse Rate 95 H 10/23/18 12:15 Respiratory Rate 20 10/23/18 12:15 Blood Pressure 107/62 10/23/18 12:15 Pulse Oximetry 99 10/23/18 12:15 Last Documented Vital Signs Temperature 97.9 F 10/23/18 12:15 Pulse Rate 78 10/23/18 15:17 Respiratory Rate 16 10/23/18 15:17 Blood Pressure 133/72 10/23/18 15:17 Pulse Oximetry 98 10/23/18 15:17 Medical Decision Making MDM Narrative Medical decision making narrative: 68-year-old male presents to the emergency department evaluation of an ulcer to the right foot that started a couple of weeks ago. He cannot recall inciting event but states it may be due to the excessive swelling, atrophy and use compression socks. He says it is gradually worsened and he went to his primary care physician who prescribed him Bactrim DS. He saw Dr. Douglas today and recommended he come in for evaluation. I received the information that Dr. Douglas spoke with Dr. Dixon who would admit this patient. His vital signs are stable Labs ordered for evaluation. Labs notable for leukocytosis at 12.1, H/H stable from previous labs. INR 1.1, sodium 134, potassium 4.7, BUN/creatinine 44/1.97 , lactic 1.5 Morphine administered for pain as patient normally takes hydrocodone 10/325. I spoke with Dr. Dixon who agreed to the admission. Will initiate vancomycin and ordered foot x-ray for evaluation. Foot x-ray is negative for acute process. Medical Screen Exam Complete: Yes Emergency Medical Condition: Yes Differential Diagnosis Differential Diagnosis: Right lower extremity cellulitis, erysipelas, ulcer, osteomyelitis, sepsis Lab Data Result diagrams: 10/23/18 14:30 10/23/18 14:30 Lab Results 10/23/18 10/23/18 10/23/18 Range/Units 14:30 14:30 14:30 WBC 12.1 H (4.0-11.0) th/mm3 RBC 3.46 L (4.50-5.90) mil/mm3 Hgb 11.4 L (13.0-17.0) gm/dL Hct 33.6 L (39.0-51.0) % MCV 97.2 (80.0-100.0) fL MCH 32.9 (27.0-34.0) pg MCHC 33.9 (32.0-36.0) % RDW 17.5 H (11.6-17.2) % Plt Count 366 (150-450) th/mm3 MPV 7.5 (7.0-11.0) fL Neut % (Auto) 83.6 H (16.0-70.0) % Lymph % (Auto) 10.7 (9.0-44.0) % [place] % (Auto) 5.1 (0.0-8.0) % Eos % (Auto) 0.2 (0.0-4.0) % Baso % (Auto) 0.4 (0.0-2.0) % Neut # (Auto) 10.1 H (1.8-7.7) th/mm3 Lymph # (Auto) 1.3 (1.0-4.8) th/mm3 [place] # (Auto) 0.6 (0.0-0.9) th/mm3 Eos # (Auto) 0.0 (0.0-0.4) th/mm3 Baso # (Auto) 0.0 (0.0-0.2) th/mm3 WBC Differential . Differential Comment Auto diff final PT 10.7 (9.8-11.6) sec INR 1.1 Ratio APTT 32.2 H (23.4-31.7) sec Sodium 134 L (136-145) meq/L Potassium 4.7 (3.5-5.1) meq/L Chloride 103 (98-107) meq/L Carbon Dioxide 19.5 L (21.0-32.0) meq/L Anion Gap 12 (5-15) meq/L BUN 44 H (7-18) mg/dL Creatinine 1.97 H (0.60-1.30) mg/dL Estimated GFR 34 L (>89) mL/min Random Glucose 81 (74-106) mg/dL Lactic Acid (0.4-2.0) mmol/L Calcium 9.7 (8.5-10.1) mg/dL Magnesium 2.3 (1.5-2.5) mg/dL Total Bilirubin 0.5 (0.2-1.0) mg/dL AST 36 (15-37) U/L ALT 20 (12-78) U/L Alkaline Phosphatase 84 (45-117) U/L Total Protein 8.4 H (6.4-8.2) g/dL Albumin 3.7 (3.4-5.0) g/dL 10/23/18 Range/Units 14:30 WBC (4.0-11.0) th/mm3 RBC (4.50-5.90) mil/mm3 Hgb (13.0-17.0) gm/dL Hct (39.0-51.0) % MCV (80.0-100.0) fL MCH (27.0-34.0) pg MCHC (32.0-36.0) % RDW (11.6-17.2) % Plt Count (150-450) th/mm3 MPV (7.0-11.0) fL Neut % (Auto) (16.0-70.0) % Lymph % (Auto) (9.0-44.0) % [place] % (Auto) (0.0-8.0) % Eos % (Auto) (0.0-4.0) % Baso % (Auto) (0.0-2.0) % Neut # (Auto) (1.8-7.7) th/mm3 Lymph # (Auto) (1.0-4.8) th/mm3 [place] # (Auto) (0.0-0.9) th/mm3 Eos # (Auto) (0.0-0.4) th/mm3 Baso # (Auto) (0.0-0.2) th/mm3 WBC Differential Differential Comment PT (9.8-11.6) sec INR Ratio APTT (23.4-31.7) sec Sodium (136-145) meq/L Potassium (3.5-5.1) meq/L Chloride (98-107) meq/L Carbon Dioxide (21.0-32.0) meq/L Anion Gap (5-15) meq/L BUN (7-18) mg/dL Creatinine (0.60-1.30) mg/dL Estimated GFR (>89) mL/min Random Glucose (74-106) mg/dL Lactic Acid 1.5 (0.4-2.0) mmol/L Calcium (8.5-10.1) mg/dL Magnesium (1.5-2.5) mg/dL Total Bilirubin (0.2-1.0) mg/dL AST (15-37) U/L ALT (12-78) U/L Alkaline Phosphatase (45-117) U/L Total Protein (6.4-8.2) g/dL Albumin (3.4-5.0) g/dL Imaging Data Radiologist's impression: Foot X-Ray 10/23/18 15:33 CONCLUSION: No bone loss is identified. No foreign body identified. Discharge Plan Discharge Disposition Patient Disposition: ED Admit(ED Internal Use Only) Discharge Condition Condition: Stable Discharge Order Discharge Orders: ED Use Only Admit Order (Routine); Ordered 10/23/18 Ordered By: Dina Dobson Discharge Details Diagnosis: Cellulitis Physicians Team ED Provider: Christopher Singh ED Midlevel Provider: Dina Dobson Primary Care Provider: UNKNOWN, Attending Provider: Deidre Dixon Status ED Status: Left Department Discharge Information Discharge Date/Time: 10/23/18 16:15
[2018-10-23 14:58] LABS: Activated Partial Thrombo Time 32.2 sec (23.4-31.7); INR 1.1 Ratio; Prothrombin Time 10.7 sec (9.8-11.6)
[2018-10-23 15:03] LABS: Alkaline Phosphatase 84 U/L (45-117); Total Protein 8.4 g/dL (6.4-8.2)
[2018-10-23] MEDS ORDERED: Morphine Inj 4 MG/ML Vial IV.PUSH ONE (15:06)
[2018-10-23 15:07] LABS: Alanine Aminotransferase 20 U/L (12-78); Albumin 3.7 g/dL (3.4-5.0); Anion Gap 12 meq/L (5-15); Aspartate Aminotransferase 36 U/L (15-37); Blood Urea Nitrogen 44 mg/dL (7-18); Calcium 9.7 mg/dL (8.5-10.1); Carbon Dioxide 19.5 meq/L (21.0-32.0); Chloride 103 meq/L (98-107); Glomerular Filtration Rate 34 mL/min (>89); Glucose,Random 81 mg/dL (74-106); Magnesium 2.3 mg/dL (1.5-2.5); Sodium 134 meq/L (136-145)
[2018-10-23 15:09] LABS: Potassium 4.7 meq/L (3.5-5.1)
[2018-10-23] MEDS ORDERED: Vancomycin Inj 1,250 MG in Sodium Chlor 0.9% Inj 250 ML IV.SIG ONE (15:33)
--- NOTE | 2018-10-23 15:41 | P.HPIM ---
History of Present Illness Service: [facility] Primary Care Physician: UNKNOWN Chief Complaint: Right foot infection History of Present Illness: 68-year-old male with a recent history of colonic perforation and retroperitoneal abscess status post surgical intervention in diverting ileostomy. The patient presented to Dr. Misael sommers for follow-up today. He complained of worsening right foot cellulitis and infection. Patient reports the symptoms started about 2 weeks ago. He had bilateral leg swelling. Left ankle swelling improved with compression stockings but the right ankle swelling persisted. He has since developed an infection in the right medial foot and right heel. He reports the infection has been getting worse. He saw his primary care physician yesterday and was started on Bactrim. He has not noted any improvement. He has since developed a shallow ulcer of the medial midfoot. He has not had any fevers or chills. However he reports he is feeling very fatigued and his appetite has been very poor. Review of Systems Review of Systems: all other systems reviewed are negative [facility] Medical History Medical History CAD (coronary artery disease) (Acute) Gastroesophageal reflux disease (Acute) History of infection with vancomycin resistant Enterococcus (VRE) (Acute ~) Hyperlipidemia (Acute) Hypertension (Acute) Kidney stones (Acute) Methotrexate, shelter, current use (Acute) Rheumatoid arthritis (Acute) Steroid long-term use (Acute) Surgical History Surgical History H/O heart artery stent (Acute) H/O hernia repair (Acute) H/O knee surgery (Acute) H/O shoulder surgery (Acute) Hx of CABG (Acute) Ileostomy present (Acute) Family History Family History Other Osteoarthritis Social History Social History Substance History: No History of Abuse Second Hand Smoke Exposure: No Smoking Status: Former smoker Tobacco Type: Cigarettes How Often Do You Have a Drink Containing Alcohol: Never Immunization History Tetanus Immunization: >5 Years Medications and Allergies Allergies Allergy/AdvReac Type Severity Reaction Status Date / Time No Known Allergies Allergy Verified 10/23/18 13:46 Home Medications Medication Instructions Recorded Confirmed Type aspirin [Aspir-Low] 81 mg PO HS 07/22/18 10/23/18 History folic acid 1 mg PO DAILY 07/22/18 10/23/18 History hydrocodone-acetaminophen 1 tab PO Q6H PRN 07/22/18 10/23/18 History hydroxychloroquine 200 mg PO BID 07/22/18 10/23/18 History magnesium 500 mg PO QAM 07/22/18 10/23/18 History meloxicam 15 mg PO QPM 07/22/18 10/23/18 History methotrexate sodium 8 mg PO QWEEK 07/22/18 10/23/18 History Active Medications: Active Medications Hydrocodone Bitart/Acetaminophen ([place] 10/325) 1 tab PO Q6H PRN PRN Reason: Pain Aspirin (Ecotrin) 81 mg PO HS [facility] Atorvastatin Calcium (Lipitor) 40 mg PO HS [facility] Folic Acid (Folic Acid) 1 mg PO DAILY [facility] Heparin Sodium (Porcine) (Heparin Inj) 5,000 units SQ Q12H [facility] Hydroxychloroquine Sulfate (Plaquenil) 200 mg PO BID [facility] Vancomycin HCl 1,250 mg/ (Sodium Chloride) 262.5 mls @ 250 mls/hr IV.SIG ONCE ONE Stop: 10/23/18 16:35 Cefazolin Sodium 1,000 mg/ (Sodium Chloride) 100 mls @ 200 mls/hr IV.SIG Q8H [facility] Pharmacy Profile Note (Vancomycin Consult Pharmacy) 0 mls @ 0 mls/hr OTHER UNSCH [facility] Vancomycin HCl 1,000 mg/ (Sodium Chloride) 250 mls @ 250 mls/hr IV.SIG Q12H [facility] Non-Formulary Medication (Magnesium [Magnesium]) 500 mg PO QAM [facility] Non-Formulary Medication (Omeprazole [Omeprazole]) 20 mg PO DAILY [facility] Ondansetron HCl (Zofran Odt) 4 mg PO Q6H PRN PRN Reason: nausea and vomiting Sodium Chloride (Ns Flush) 2 ml IV.FLUSH BID [facility] Sodium Chloride (Ns Flush) 2 ml IV.FLUSH PRN PRN PRN Reason: FLUSH AFTER USING IV ACCESS Physical Exam Vital signs: Vital Signs 10/23/18 12:15 10/23/18 13:50 10/23/18 15:17 Temperature 97.9 F Pulse Rate 95 H 77 78 Respiratory Rate 20 16 16 Blood Pressure 107/62 143/67 H 133/72 Pulse Oximetry 99 100 98 Intake & Output 10/22/18 10/23/18 10/23/18 18:59 06:59 18:59 Weight 68.039 kg Narrative: GENERAL: This is a well-nourished, well-developed patient, in no apparent distress. CARDIOVASCULAR: Normal rate and regular rhythm without murmurs, gallops, or rubs. RESPIRATORY: Good respiratory efforts. Breath sounds equal and clear to auscultation bilaterally. GASTROINTESTINAL: Abdomen soft, non-tender, non-distended. Normal active bowel sounds MUSCULOSKELETAL: Right medial foot has a 1 x 1 cm superficial ulcer with surrounding edema and erythema. Right heel also with evidence of cellulitis with erythema and warmth extending up to above the ankle. Small dry ulcer of the fifth tow that is chronic per the patient and family. NEURO: Alert & Oriented x4 to person, place, time, situation. Moves all ext x4 PSYCH: Appropriate mood and affect. Somewhat anxious. Results Labs CBC & Chem 7: 10/23/18 14:30 10/23/18 14:30 Caprini VTE Risk Assessment Caprini VTE Risk Assessment: Moderate/High Risk (score >= 2) Caprini Risk Assessment Model: Point Value = 1 Point Value = 2 Point Value = 3 Point Value = 5 Age 41-60 Minor surgery BMI > 25 kg/m2 Swollen legs Varicose veins or History of unexplained or recurrent spontaneous Oral contraceptives or hormone replacement Sepsis (< 1 month) Serious lung disease, including pneumonia (< 1 month) Abnormal pulmonary function Acute myocardial infarction Congestive heart failure (< 1 month) History of inflammatory bowel disease Medical patient at bed rest Age 61-74 Arthroscopic surgery Major open surgery (> 45 min) Laparoscopic surgery (> 45 min) Malignancy Confined to bed (> 72 hours) Immobilizing plaster cast Central venous access Age >= 75 History of VTE Family history of VTE Factor V Leiden Prothrombin [id number] Lupus anticoagulant Anticardiolipin antibodies Elevated serum homocysteine Heparin-induced thrombocytopenia Other congenital or acquired thrombophilia Stroke (< 1 month) Elective arthroplasty Hip, pelvis, or leg fracture Acute spinal cord injury (< 1 month) Prophylaxis Regimen: Total Risk Factor Score Risk Level Prophylaxis Regimen 0-1 Low Early ambulation 2 Moderate Order ONE of the following: *Sequential Compression Device (SCD) *Heparin 5000 units SQ BID 3-4 Higher Order ONE of the following medications: *Heparin 5000 units SQ TID *Enoxaparin/Lovenox 40 mg SQ daily (WT < 150 kg, CrCl > 30 mL/min) *Enoxaparin/Lovenox 30 mg SQ daily (WT < 150 kg, CrCl > 10-29 mL/min) *Enoxaparin/Lovenox 30 mg SQ BID (WT < 150 kg, CrCl > 30 mL/min) AND/OR *Sequential Compression Device (SCD) 5 or more Highest Order ONE of the following medications: *Heparin 5000 units SQ TID (Preferred with Epidurals) *Enoxaparin/Lovenox 40 mg SQ daily (WT < 150 kg, CrCl > 30 mL/min) *Enoxaparin/Lovenox 30 mg SQ daily (WT < 150 kg, CrCl > 10-29 mL/min) *Enoxaparin/Lovenox 30 mg SQ BID (WT < 150 kg, CrCl > 30 mL/min) AND *Sequential Compression Device (SCD) Assessment and Plan Plan 68-year-old male with: Right lower extremity cellulitis: Failed outpatient treatment. Symptoms has been worsening over 2 weeks. -Admit for IV antibiotics. Start vancomycin. - Obtain lower extremity Doppler to rule out DVT. - Follow cultures -Keep right foot elevated. -Pain control History of colonic perforation and retroperitoneal abscess: Patient is status post ileostomy. He completed a course of treatment with antibiotics. - Stable from a GI standpoint. - Continue to monitor. Rheumatoid arthritis: - Continue hydroxychloroquine Hyperlipidemia: - Continue statin. Acute on chronic kidney disease: - Renal function worse compared to baseline. - Avoid nephrotoxins and follow-up labs in a.m. GI prophylaxis: PPI. Stool softener PRN constipation. DVT PPx: Heparin
[2018-10-23] MEDS ORDERED: Vancomycin Consult Pharmacy 1 EACH OTHER SCH (15:45)
[2018-10-23] MEDS ORDERED: Vancomycin Inj 1,000 MG in Sodium Chlor 0.9% Inj 250 ML IV.SIG SCH (16:00)
--- NOTE | 2018-10-23 16:04 | XR ---
EXAM DATE: 10/23/2018 3:58 PM EST AGE/SEX: 68 years / Male INDICATIONS: Possible right foot infection at great toe. CLINICAL DATA: This is the patient's initial encounter. Patient reports that signs and symptoms have been present for 1 day and indicates a pain score of 5/10. MEDICAL/SURGICAL HISTORY: None. None. COMPARISON: . FINDINGS: Bony structures are intact and in normal alignment. Osseous density is normal. Soft tissues are unre markable. No radiopaque foreign bodies seen. Bipartite fibular sesamoid. Atherosclerotic disease. CONCLUSION: No bone loss is identified. No foreign body identified. Electronically signed by: Rashel Stapleton MD Board Certified Radiologist 10/23/2018 4:03 PM EST
[2018-10-23] MEDS: LORazepam 1 MG Tablet PO PRN ×2 (17:22→23:45)
[2018-10-23] MEDS: Heparin - SQ 10,000 UNITS/ML Vial SQ SCH (17:22)
--- NOTE | 2018-10-23 18:50 | US ---
EXAM DATE: 10/23/2018 6:39 PM EST AGE/SEX: 68 years / Male INDICATIONS: Right foot cellulitis. CLINICAL DATA: This is the patient's initial encounter. Patient reports that signs and symptoms have been present for 2 months and indicates a pain score of 7/10. MEDICAL/SURGICAL HISTORY: Gastroesophageal reflux disease. Hypercholesterolemia. Hypertension . CAD. Kidney stones. Rheumatoid arthritis. Long-term steroid use. CABG. Coronary artery stent . Rotator cuff, right. Knee surgery. Ileostomy. COMPARISON: No prior exams available for comparison. TECHNIQUE: Venous ultrasound of both lower extremities was performed from the inguinal ligament to t he proximal calf. Real-time, color Doppler and spectral tracing, compression and augmentation techni ques were used. FINDINGS: Normal compression of the deep venous system from the inguinal region to the proximal calf . No echogenic clot is seen. Normal response of the venous system to augmentation and respiration. CONCLUSION: 1. The study is negative for lower extremity deep venous thrombosis. Electronically signed by: Glenn Snell MD Board Certified Radiologist 10/23/2018 6:49 PM EST
[2018-10-23] MEDS: Morphine Inj 4 MG/ML Vial IV.PUSH PRN (19:39)
[2018-10-23] MEDS: Hydroxychloroquine 200 MG Tablet PO SCH (21:13)
[2018-10-23 21:17] LABS: Baso % (Auto) 0.2 % (0.0-2.0); Eos % (Auto) 0.2 % (0.0-4.0); Hemoglobin 10.1 gm/dL (13.0-17.0); Lymph # (Auto) 1.2 th/mm3 (1.0-4.8); Lymph % (Auto) 12.5 % (9.0-44.0); Mean Corpuscular HGB Conc 33.6 % (32.0-36.0); Mean Corpuscular Hemoglobin 31.8 pg (27.0-34.0); Mean Corpuscular Volume 94.7 fL (80.0-100.0); Mean Platelet Volume 7.3 fL (7.0-11.0); Mono # (Auto) 0.4 th/mm3 (0.0-0.9); Mono % (Auto) 4.1 % (0.0-8.0); Neut # (Auto) 7.9 th/mm3 (1.8-7.7); Platelet Count 349 th/mm3 (150-450); Red Blood Count 3.17 mil/mm3 (4.50-5.90); White Blood Count 9.6 th/mm3 (4.0-11.0)
[2018-10-23 21:35] LABS: Calcium 9.2 mg/dL (8.5-10.1); Carbon Dioxide 20.2 meq/L (21.0-32.0); Potassium 4.3 meq/L (3.5-5.1)
[2018-10-24] MEDS: Heparin - SQ 10,000 UNITS/ML Vial SQ SCH ×2 (03:24→17:29)
[2018-10-24] MEDS: Morphine Inj 4 MG/ML Vial IV.PUSH PRN ×4 (03:25→22:17)
[2018-10-24] MEDS: Hydroxychloroquine 200 MG Tablet PO SCH ×3 (08:03→22:17)
[2018-10-24] MEDS: Folic Acid 1 MG Tablet PO SCH (08:03)
[2018-10-24] MEDS: Magnesium Oxide 400 MG Tablet PO SCH (08:03)
[2018-10-24] MEDS: LORazepam 1 MG Tablet PO PRN ×2 (08:08→14:10)
[2018-10-24] MEDS ORDERED: Gabapentin 100 MG Capsule PO ONE (09:39)
--- NOTE | 2018-10-24 11:45 | P.CONID ---
History of Present Illness Service: Infectious Disease Consult date: 10/24/18 Requesting Physician: Jolanta Zhang Reason for Consult: Evaluation and Mment of Primary Care Provider: UNKNOWN Chief Complaint: Right foot infection History of Present Illness: Mr. Moreira is a 68-year-old male with past medical history significant for rheumatoid arthritis on methotrexate, history of diverticulitis , history of colonic perforation and retroperitoneal abscess status post surgical intervention and diverting ileostomy. Patient grew multiple bacteria during that admission including VRE as well as Sarita glabrata. Patient was treated with oral antibiotics for the bacteria and discharged home on micafungin IV for Sarita glabrata infection using a PICC line. Patient has been following up with Dr. Douglas for the ileostomy. While at his visit he complained of worsening right foot cellulitis and infection which started about 2 weeks prior to this admission. He had bilateral lower extremity swelling which continued to improve to some extent with compression socks but the right ankle swelling persisted. Patient's thinks that the compression socks may have caused undue pressure on the medial aspect of his right ankle leading to the area of ulceration. Due to worsening foot infection including an area of blackening noted on the medial aspect of the right foot. Patient denies any fever or chills but of note patient is immune compromised. Patient did report feeling very fatigued. Patient denies having been told that he has any vascular issues in the past. Past medical history: Rheumatoid arthritis currently on methotrexate but has been offered infliximab which has not been started yet. Long-term steroid use Current methotrexate use Kidney stones Hypertension Hyperlipidemia History of infection with VRE GERD Coronary artery disease status post coronary artery bypass Past surgical history: Bilateral shoulder surgery with no hardware in place Bilateral knee prosthetic joint with no history of infections Ileostomy in place Retroperitoneal abscess status post surgical intervention Infectious disease consulted for evaluation and management of right foot cellulitis and infected ulcer Review of Systems All other systems reviewed negative except as stated in HPI PMFSH - History History Provided By: Patient - Medical History Medical History: Medical History (Last Reviewed 10/23/18 @ 16:55 by Deidre Dixon MD) CAD (coronary artery disease) Gastroesophageal reflux disease 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 Hyperlipidemia Hypertension Kidney stones Methotrexate, roasterman, current use Rheumatoid arthritis Steroid long-term use - Surgical History Surgical History: Surgical History (Last Reviewed 10/23/18 @ 16:55 by Deidre Dixon MD) H/O heart artery stent H/O hernia repair H/O knee surgery H/O shoulder surgery Hx of CABG Ileostomy present - Family History Family History: Family History (Last Reviewed 10/23/18 @ 16:55 by Deidre Dixon MD) Other Osteoarthritis - Tobacco History Second Hand Smoke Exposure: No Smoking Status: Former smoker Tobacco Type: Cigarettes - Alcohol History How Often Do You Have a Drink Containing Alcohol: Never - Substance Use History Substance History: No History of Abuse - Immunization History Tetanus Immunization: >5 Years Hx Influenza Vaccine This Season: Yes Medications and Allergies Active Medications: Active Medications Hydrocodone Bitart/Acetaminophen ([place] 10/325) 1 tab PO Q6H PRN PRN Reason: PAIN 1-10 Last Admin: 10/24/18 06:10 Dose: 1 tab Aspirin (Ecotrin) 81 mg PO HS [facility] Last Admin: 10/23/18 21:13 Dose: 81 mg Atorvastatin Calcium (Lipitor) 40 mg PO HS [facility] Last Admin: 10/23/18 21:13 Dose: 40 mg Folic Acid (Folic Acid) 1 mg PO DAILY [facility] Last Admin: 10/24/18 08:03 Dose: 1 mg Gabapentin (Neurontin) 200 mg PO TID [facility] Heparin Sodium (Porcine) (Heparin Inj) 5,000 units SQ Q12H [facility] Last Admin: 10/24/18 03:24 Dose: 5,000 units Hydroxychloroquine Sulfate (Plaquenil) 200 mg PO BID [facility] Last Admin: 10/24/18 08:03 Dose: 200 mg Pharmacy Profile Note (Vancomycin Consult Pharmacy) 0 mls @ 0 mls/hr OTHER UNSCH [facility] Vancomycin HCl 1,250 mg/ (Sodium Chloride) 262.5 mls @ 262.5 mls/hr IV.SIG Q24H [facility] Lorazepam (Ativan) 1 mg PO Q6H PRN PRN Reason: ANXIETY Last Admin: 10/24/18 08:08 Dose: 1 mg Magnesium Oxide (Mag-Ox) 400 mg PO DAILY [facility] Last Admin: 10/24/18 08:03 Dose: 400 mg Miscellaneous Information ([facility] [place] [facility] Ordered Lab Info) 0 each OTHER ONCE ONE Stop: 10/26/18 16:46 Morphine Sulfate (Morphine Inj) 2 mg IV.PUSH Q4H PRN PRN Reason: BREAKTHROUGH PAIN Last Admin: 10/24/18 08:01 Dose: 2 mg Ondansetron HCl (Zofran Odt) 4 mg PO Q6H PRN PRN Reason: nausea and vomiting Last Admin: 10/24/18 06:10 Dose: 4 mg Pantoprazole Sodium (Protonix) 40 mg PO DAILY [facility] Last Admin: 10/24/18 08:03 Dose: 40 mg Sodium Chloride (Ns Flush) 2 ml IV.FLUSH BID [facility] Last Admin: 10/24/18 08:03 Dose: 2 ml Sodium Chloride (Ns Flush) 2 ml IV.FLUSH PRN PRN PRN Reason: FLUSH AFTER USING IV ACCESS Allergies Allergy/AdvReac Type Severity Reaction Status Date / Time No Known Allergies Allergy Verified 10/23/18 13:46 Home Medications Medication Instructions Recorded Confirmed Type aspirin [Aspir-Low] 81 mg PO HS 07/22/18 10/23/18 History folic acid 1 mg PO DAILY 07/22/18 10/23/18 History hydrocodone-acetaminophen 1 tab PO Q6H PRN 07/22/18 10/23/18 History hydroxychloroquine 200 mg PO BID 07/22/18 10/23/18 History magnesium 500 mg PO QAM 07/22/18 10/23/18 History meloxicam 15 mg PO QPM 07/22/18 10/23/18 History methotrexate sodium 8 mg PO QWEEK 07/22/18 10/23/18 History Exam Vital signs: Vital Signs 10/23/18 12:15 10/23/18 13:50 10/23/18 15:17 Temperature 97.9 F Pulse Rate 95 H 77 78 Respiratory Rate 20 16 16 Blood Pressure 107/62 143/67 H 133/72 Pulse Oximetry 99 100 98 10/23/18 17:00 10/23/18 20:00 10/24/18 00:00 Temperature 98.1 F 99.2 F 99.7 F H Pulse Rate 86 78 89 Respiratory Rate 17 20 22 Blood Pressure 130/75 127/60 125/57 L Pulse Oximetry 96 97 97 10/24/18 08:00 Temperature 97.7 F Pulse Rate 84 Respiratory Rate 18 Blood Pressure 132/81 Pulse Oximetry 99 Intake & Output 10/23/18 10/24/18 10/24/18 18:59 06:59 18:59 Intake Total 0 / 0 502.5 / 502.5 Balance 0 / 0 502.5 / 502.5 Weight 68.039 kg 69.7 kg Intake: IV 0 / 0 262.5 / 262.5 Vancomycin Inj 1,250 MG In NS 0 / 0 262.5 / 262.5 Inj 250 ML @ 250 mls/hr IV.SIG ONCE ONE Rx#:[id number] Oral 240 / 240 Other: # Voids 2 # Bowel Movements 1 Weight On Admission 68.039 kg Narrative: GENERAL: Well-nourished well-developed, not in acute distress SKIN: Cool and dry, no generalized rash HEAD: Atraumatic. Normocephalic. No temporal or scalp tenderness. EYES: Pupils equal round and reactive. Scleral icterus. No injection or drainage. No petechia ENT: Nothing abnormal detected NECK: Trachea midline. Supple, nontender, no meningeal signs. CARDIOVASCULAR: HS audible. RESPIRATORY: Clear to auscultation bilaterally. GASTROINTESTINAL: Abdomen soft nontender. Ileostomy in place. Surgical site intact with no evidence of infection. MUSCULOSKELETAL: Bilateral hand swan-neck deformity, Heberden's nodes noted. Bilateral knee with surgical scars intact with no evidence of infection. Left foot with petechial skin changes noted. Decreased peripheral pulses. Right foot with a 3 x 4 cm area of ulceration with blackening of the skin noted. Dorsalis pedis pulses markedly diminished. NEUROLOGICAL: Alert oriented 3. Nonfocal. Psych cooperative IV line sites ok. Results - Labs CBC & Chem 7: 10/23/18 20:25 10/24/18 04:07 Labs: Laboratory Results - last 24 hr 10/23/18 10/23/18 10/23/18 14:30 14:30 14:30 WBC 12.1 H RBC 3.46 L Hgb 11.4 L Hct 33.6 L MCV 97.2 MCH 32.9 MCHC 33.9 RDW 17.5 H Plt Count 366 MPV 7.5 Neut % (Auto) 83.6 H Lymph % (Auto) 10.7 [place] % (Auto) 5.1 Eos % (Auto) 0.2 Baso % (Auto) 0.4 Neut # (Auto) 10.1 H Lymph # (Auto) 1.3 [place] # (Auto) 0.6 Eos # (Auto) 0.0 Baso # (Auto) 0.0 WBC Differential . Differential Comment Auto diff final PT 10.7 INR 1.1 APTT 32.2 H Sodium 134 L Potassium 4.7 Chloride 103 Carbon Dioxide 19.5 L Anion Gap 12 BUN 44 H Creatinine 1.97 H Estimated GFR 34 L Random Glucose 81 Lactic Acid Calcium 9.7 Magnesium 2.3 Total Bilirubin 0.5 AST 36 ALT 20 Alkaline Phosphatase 84 Total Protein 8.4 H Albumin 3.7 Random Vancomycin 10/23/18 10/23/18 10/23/18 14:30 20:25 20:25 WBC 9.6 RBC 3.17 L Hgb 10.1 L Hct 30.0 L MCV 94.7 MCH 31.8 MCHC 33.6 RDW 17.0 Plt Count 349 MPV 7.3 Neut % (Auto) 83.0 H Lymph % (Auto) 12.5 [place] % (Auto) 4.1 Eos % (Auto) 0.2 Baso % (Auto) 0.2 Neut # (Auto) 7.9 H Lymph # (Auto) 1.2 [place] # (Auto) 0.4 Eos # (Auto) 0.0 Baso # (Auto) 0.0 WBC Differential . Differential Comment Auto diff final PT INR APTT Sodium 135 L Potassium 4.3 Chloride 107 Carbon Dioxide 20.2 L Anion Gap 8 BUN 38 H Creatinine 1.53 H Estimated GFR 45 L Random Glucose 117 H Lactic Acid 1.5 Calcium 9.2 Magnesium Total Bilirubin AST ALT Alkaline Phosphatase Total Protein Albumin Random Vancomycin 10/24/18 04:07 WBC RBC Hgb Hct MCV MCH MCHC RDW Plt Count MPV Neut % (Auto) Lymph % (Auto) [place] % (Auto) Eos % (Auto) Baso % (Auto) Neut # (Auto) Lymph # (Auto) [place] # (Auto) Eos # (Auto) Baso # (Auto) WBC Differential Differential Comment PT INR APTT Sodium Potassium Chloride Carbon Dioxide Anion Gap BUN Creatinine 1.33 H Estimated GFR 53 L Random Glucose Lactic Acid Calcium Magnesium Total Bilirubin AST ALT Alkaline Phosphatase Total Protein Albumin Random Vancomycin 11.0 - Imaging Impressions Venous Doppler Study 10/23/18 00:00 CONCLUSION: 1. The study is negative for lower extremity deep venous thrombosis. Foot X-Ray 10/23/18 15:33 CONCLUSION: No bone loss is identified. No foreign body identified. Assessment and Plan - Plan Right foot cellulitis Right foot infected ulcer Probable peripheral arterial as well as vascular disease Rheumatoid arthritis on methotrexate Relative immune deficiency Coronary artery disease Bilateral knee with hardware in place prosthetic joints at risk for seeding Recommendations Continue vancomycin IV target trough 10-15. Recommend FIDELINA unless Dr. Douglas plans on doing a CT angiogram. Agree with vascular consult with Dr. Douglas Follow cultures Follow clinical course Plan discussed with patient and his in the room.
[2018-10-24] MEDS: Gabapentin 100 MG Capsule PO SCH ×2 (12:40→17:32)
--- NOTE | 2018-10-24 13:04 | P.PNIM ---
Subjective Interval history: Follow up on patient with cellulitis right foot. Patient seen and examined. Patient is complaining of severe sharp shooting electric type pain that radiates down from the right buttock down back of leg into the foot. He says he was not able to sleep at all last night due to the pain in his right leg. This pain has started this admission. He denies any back pain. He reports intermittent pain in the right foot which improves some with dependency. He and his who are at the bedside feel the foot is worsening. He denies any fever. He denies any chest pain or dyspnea. He reports poor oral intake and weight loss of 30lbs since July. He complains of intermittent nausea but denies any episodes of emesis. He denies any abdominal pain. He denies any diarrhea. He denies any urinary difficulties. Physical Exam Vital signs: Vital Signs 10/23/18 13:50 10/23/18 15:17 10/23/18 17:00 Temperature 98.1 F Pulse Rate 77 78 86 Respiratory Rate 16 16 17 Blood Pressure 143/67 H 133/72 130/75 Pulse Oximetry 100 98 96 10/23/18 20:00 10/24/18 00:00 10/24/18 08:00 Temperature 99.2 F 99.7 F H 97.7 F Pulse Rate 78 89 84 Respiratory Rate 20 22 18 Blood Pressure 127/60 125/57 L 132/81 Pulse Oximetry 97 97 99 10/24/18 12:00 Temperature 97.8 F Pulse Rate 73 Respiratory Rate 17 Blood Pressure 132/66 Pulse Oximetry 99 Intake & Output 10/23/18 10/24/18 10/24/18 18:59 06:59 18:59 Intake Total 0 / 0 502.5 / 502.5 Balance 0 / 0 502.5 / 502.5 Weight 68.039 kg 69.7 kg Intake: IV 0 / 0 262.5 / 262.5 Vancomycin Inj 1,250 MG In NS 0 / 0 262.5 / 262.5 Inj 250 ML @ 250 mls/hr IV.SIG ONCE ONE Rx#:[id number] Oral 240 / 240 Other: # Voids 2 # Bowel Movements 1 Weight On Admission 68.039 kg Narrative: GENERAL: This is a well-nourished, well-developed thin, frail appearing male patient, INAD but has obvious discomfort from right leg pain. Awake and alert. is at the bedside. SKIN: Warm and dry. No generalized rash. HEENT: NC/AT. Pupil equal and round. No sclera icterus. No nasal drainage. MMM. CARDIOVASCULAR: Normal rate and regular rhythm without murmurs, gallops, or rubs. RESPIRATORY: No accessory muscle use. Clear to auscultation bilaterally. GASTROINTESTINAL: Abdomen soft, non-tender, non-distended. Normal active bowel sounds. +ostomy with soft brown stool in bag. MUSCULOSKELETAL: +Bilateral swan neck deformity on hands. +Heberden's nodes. Right medial foot has a 1 x 1 cm superficial ulcer with surrounding edema, erythema and purplish discoloration. Right heel +erythema and warmth extending up to above the ankle. Small dry ulcer of the fifth toe and tip of the 2nd digit chronic per the patient and family. DP pulse poor. NEUROLOGIC: Awake and alert. Nonfocal. Able to move all extremities spontaneously. Normal speech. PSYCH: Appropriate mood and affect. Somewhat anxious. Results Labs CBC & Chem 7: 10/23/18 20:25 10/25/18 04:57 Labs: Microbiology 10/23/18 14:30 Blood - Peripheral Aerobic Blood Culture - Preliminary No growth in 1 day 10/23/18 14:30 Blood - Peripheral Anaerobic Blood Culture - Preliminary No growth in 1 day 10/23/18 14:36 Blood - Peripheral Aerobic Blood Culture - Preliminary No growth in 1 day 10/23/18 14:36 Blood - Peripheral Anaerobic Blood Culture - Preliminary No growth in 1 day Imaging Imaging: Impressions Venous Doppler Study 10/23/18 00:00 CONCLUSION: 1. The study is negative for lower extremity deep venous thrombosis. Foot X-Ray 10/23/18 15:33 CONCLUSION: No bone loss is identified. No foreign body identified. Assessment and Plan Plan 68-year-old male with: SIRS with leukocytosis WBC 12.1 and elevated HR 95, concern for early sepsis in this immunocompromised patient Right lower extremity cellulitis: Failed outpatient treatment. Symptoms has been worsening over 2 weeks Metabolic acidosis Doppler neg for DVT WBC trending down -Vascular surgery, Dr. Misael moss, appreciate assistance. CTA with runoff ordered. -Consult ID, appreciate assistance -Continue on IV Vancomycin -BCX neg x 1 day, continue to follow until finalized -Keep right foot elevated -Pain control -monitor clinically -monitor temp trend -no hx of DM, obtain HgbA1c Acute on chronic kidney disease, suspect 2/2 dehydration/poor po intake, improving -Renal function worse compared to baseline. Cr now trending down s/p IVF. Continued on IVF for now 2/2 CTA study. Encourage po fluid intake. -Avoid nephrotoxins -Monitor closely while on IV Vanco and after IV contrast for CTA study. -continue to monitor renal indices RLE neuropathic pain patient has no complaints of back pain ?Leriche syndrome -will obtain imaging of the lumbar spine -trial of gabapentin -vascular workup pending History of colonic perforation and retroperitoneal abscess, grew MDRO including VRE, MRSA, Sarita glabrata and Klebsiella: Patient is status post ileostomy. He completed a course of treatment with antibiotics. 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 Stool softener PRN constipation. DVT PPx: Heparin Code Status: FULL Discussed Condition With: patient, at bedside, Dr. Bianchi, Dr. Gilbert Progress Note: Quality VTE Deep Vein Thrombosis/Pulmonary Embolism Present on Admission: No
--- NOTE | 2018-10-24 13:47 | P.PNVS ---
Subjective Subjective/Hospital Course: 68-year-old male known to me from previous encounters for left colon perforation. Patient now with cellulitis and edema of the right foot Patient has stigmata of coronary artery disease vascular disease and cardiovascular degenerative changes. Full workup is in progress CTA with runoff ordered We will continue to follow Full consult dictated Thanks J Objective Vital Signs / I&O: Vital Signs 10/23/18 13:50 10/23/18 15:17 10/23/18 17:00 Temperature 98.1 F Pulse Rate 77 78 86 Respiratory Rate 16 16 17 Blood Pressure 143/67 H 133/72 130/75 Pulse Oximetry 100 98 96 10/23/18 20:00 10/24/18 00:00 10/24/18 08:00 Temperature 99.2 F 99.7 F H 97.7 F Pulse Rate 78 89 84 Respiratory Rate 20 22 18 Blood Pressure 127/60 125/57 L 132/81 Pulse Oximetry 97 97 99 10/24/18 12:00 Temperature 97.8 F Pulse Rate 73 Respiratory Rate 17 Blood Pressure 132/66 Pulse Oximetry 99 Intake & Output 10/23/18 10/24/18 10/24/18 18:59 06:59 18:59 Intake Total 0 / 0 502.5 / 502.5 Balance 0 / 0 502.5 / 502.5 Weight 68.039 kg 69.7 kg Intake: IV 0 / 0 262.5 / 262.5 Vancomycin Inj 1,250 MG In NS 0 / 0 262.5 / 262.5 Inj 250 ML @ 250 mls/hr IV.SIG ONCE ONE Rx#:[id number] Oral 240 / 240 Other: # Voids 2 # Bowel Movements 1 Weight On Admission 68.039 kg Laboratory Results - last 24 hr 10/23/18 10/23/18 10/23/18 14:30 14:30 14:30 WBC 12.1 H RBC 3.46 L Hgb 11.4 L Hct 33.6 L MCV 97.2 MCH 32.9 MCHC 33.9 RDW 17.5 H Plt Count 366 MPV 7.5 Neut % (Auto) 83.6 H Lymph % (Auto) 10.7 [place] % (Auto) 5.1 Eos % (Auto) 0.2 Baso % (Auto) 0.4 Neut # (Auto) 10.1 H Lymph # (Auto) 1.3 [place] # (Auto) 0.6 Eos # (Auto) 0.0 Baso # (Auto) 0.0 WBC Differential . Differential Comment Auto diff final PT 10.7 INR 1.1 APTT 32.2 H Sodium 134 L Potassium 4.7 Chloride 103 Carbon Dioxide 19.5 L Anion Gap 12 BUN 44 H Creatinine 1.97 H Estimated GFR 34 L Random Glucose 81 Lactic Acid Calcium 9.7 Magnesium 2.3 Total Bilirubin 0.5 AST 36 ALT 20 Alkaline Phosphatase 84 Total Protein 8.4 H Albumin 3.7 Random Vancomycin 10/23/18 10/23/18 10/23/18 14:30 20:25 20:25 WBC 9.6 RBC 3.17 L Hgb 10.1 L Hct 30.0 L MCV 94.7 MCH 31.8 MCHC 33.6 RDW 17.0 Plt Count 349 MPV 7.3 Neut % (Auto) 83.0 H Lymph % (Auto) 12.5 [place] % (Auto) 4.1 Eos % (Auto) 0.2 Baso % (Auto) 0.2 Neut # (Auto) 7.9 H Lymph # (Auto) 1.2 [place] # (Auto) 0.4 Eos # (Auto) 0.0 Baso # (Auto) 0.0 WBC Differential . Differential Comment Auto diff final PT INR APTT Sodium 135 L Potassium 4.3 Chloride 107 Carbon Dioxide 20.2 L Anion Gap 8 BUN 38 H Creatinine 1.53 H Estimated GFR 45 L Random Glucose 117 H Lactic Acid 1.5 Calcium 9.2 Magnesium Total Bilirubin AST ALT Alkaline Phosphatase Total Protein Albumin Random Vancomycin 10/24/18 04:07 WBC RBC Hgb Hct MCV MCH MCHC RDW Plt Count MPV Neut % (Auto) Lymph % (Auto) [place] % (Auto) Eos % (Auto) Baso % (Auto) Neut # (Auto) Lymph # (Auto) [place] # (Auto) Eos # (Auto) Baso # (Auto) WBC Differential Differential Comment PT INR APTT Sodium Potassium Chloride Carbon Dioxide Anion Gap BUN Creatinine 1.33 H Estimated GFR 53 L Random Glucose Lactic Acid Calcium Magnesium Total Bilirubin AST ALT Alkaline Phosphatase Total Protein Albumin Random Vancomycin 11.0 Microbiology 10/23/18 14:30 Aerobic Blood Culture - Preliminary Blood - Peripheral No growth in 1 day Anaerobic Blood Culture - Preliminary No growth in 1 day 10/23/18 14:36 Aerobic Blood Culture - Preliminary Blood - Peripheral No growth in 1 day Anaerobic Blood Culture - Preliminary No growth in 1 day Impressions Venous Doppler Study 10/23/18 00:00 CONCLUSION: 1. The study is negative for lower extremity deep venous thrombosis. Foot X-Ray 10/23/18 15:33 CONCLUSION: No bone loss is identified. No foreign body identified.
--- NOTE | 2018-10-24 14:38 | MB ---
cc: Anahy Gilbert MD DATE: 10/24/2018 CONSULTING PHYSICIAN: Anahy Gilbert MD of vascular surgery REASON FOR CONSULTATION: Peripheral vascular changes, cellulitis of the right foot. HISTORY OF PRESENT DISEASE: Mr. Moreira is a 68-year-old gentleman, known to me from previous encounters. He presented about 3 months ago with perforated left colon at which time he underwent extended left colectomy with primary low anterior anastomosis and a diverting protective ileostomy. Postoperatively, the patient did well. He now comes back to my office to schedule a reversal of the ileostomy which in itself is not a big procedure and on the process of examination, he is found to have a cellulitis and edema of the right foot. The patient states this has been going on for about 2 weeks. He hit his foot initially and now it became worse. He saw somebody and was placed on Bactrim and did not do well. The patient is now being admitted for further workup and therapy. PAST MEDICAL HISTORY: Complex, that of hypertension, hyperlipidemia, coronary artery disease, rheumatoid arthritis. PAST SURGICAL HISTORY: Coronary artery angioplasty and stenting, coronary artery bypass surgery, right hernia repair, right knee surgery, above noted extended left colectomy with primary anastomosis, diverting ileostomy. MEDICATIONS: Can be found on the chart. SOCIAL HISTORY: The patient used to smoke, does not drink. PHYSICAL EXAMINATION: GENERAL: Reveals a pleasant 68-year-old gentleman. HEENT: Normocephalic. No trauma to the head. Pupils are equal and reactive. Extraocular muscles intact. NECK: Bilateral carotid pulses. Faint left-sided bruit. CHEST: Bilateral breath sounds. LUNGS: Decreased over both lungs jose. The patient has moderate COPD. HEART: Regular rhythm. ABDOMEN: Soft. No rebound, no guarding, no masses. Right lower quadrant ileostomy is nice clean and well perfused. Some drainage is noted, but the patient mainly has normal bowel movements. Pelvis is normal. EXTREMITIES: The patient has palpable bilateral femoral pulses weaker right than left. Dopplerable popliteal pulses. Right dorsalis pedis and posterior tibial arteries are present and Doppler +1 and on the left side both vessels are present and Doppler +2. The difference is probably due to the swelling of the right foot more so than any decrease to the blood flow in the foot area. Based on this exam patient probably has some degree of proximal disease in the iliac arteries and then likely either occlusion or stenosis of both SFAs. Clinically blood flow to the right leg is more compromised than to the left leg and this would be more of a regular pattern then diabetic pattern but we will see what CTA with runoff shows. I have examined the patient in the office and then in the hospital. Right foot indeed is swollen, mainly in the midfoot area with dorsum of the foot more prominently, edematous, rubor extending from the metatarsophalangeal area all the way up to the ankle. The patient has abrasion on the side of the foot as well as tiny ulcer on the fifth toe. NEUROLOGIC: The patient is grossly intact. IMPRESSION AND RECOMMENDATIONS: The patient with multiple medical problems including the stigmata of vascular disease as above noted now with cellulitis of the right foot. Full workup is in progress. The patient will clearly require IV antibiotics as he has been transferred from my office to the hospital for further care. Grateful for infectious disease and internal medicine consults and management. We will follow. MD JOLLY Morton/ct , 01:46 PM , 01:56 PM [email or web address]
--- NOTE | 2018-10-24 14:45 | P.DIET ---
Nutritional Evaluation Type of nutrition evaluation: initial Nutrition screening[place] 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 Ate 50% of bkfst and 75% of lunch today. Objective - Diagnosis LLE Cellulitis with ulcer, failed outpt treatment - Objective Body Mass Index: 20.8 % IBW: 86 (IBW = 178#) Body Weight Used for Calculations: Actual (69.7 kg) Energy Needs - Lower Range (kCal/kg): 30 Energy Needs - Upper Range (kCal/kg): 35 Lower Limit kCal/kg (kCals): 2,091 Upper Limit kCal/kg (kCals): 2,440 Lower Limit Protein Factor (Grams per Kg): 1.2 Upper Limit Protein Factor (Grams per Kg): 1.5 Lower Protein Needs (Protein): 84 Upper Protein Needs (Protein): 105 Dietitian Reviewed in Medical Record: Current diet, Curent medications, Intake & Output, Labs, Medical history Diet Order: Regular with Ensure Enlive tid Oral Diet Intake Amount: Fair 50-75% Objective Comments: Meds include Protonix, folic acid Assessment Assessment: Pt presents with fair intake and with low wt for ht with a BMI of 20.8. Appropriate diet and supplement are ordered. RD will follow and monitor supplement acceptance. Recommendations: Diet as ordered Ensure Enlive tid (350 kcals/ 20 gms pro/ 8 oz) Dietitian to Monitor: Lab values, Supplement acceptance, Intake & Output, Diet tolerance, Weight change, PO Intake, Wound/skin status, Medical course
--- NOTE | 2018-10-24 15:19 | XR ---
EXAM DATE: 10/24/2018 3:11 PM EST AGE/SEX: 68 years / Male INDICATIONS: Evaluate for arthritic changes. CLINICAL DATA: This is the patient's initial encounter. Patient reports that signs and symptoms have been present for 1 day and indicates a pain score of 0/10. MEDICAL/SURGICAL HISTORY: . bi-lateral knee replacement. Infection in leg with spasms. . COMPARISON: No prior exams available for comparison. FINDINGS: A complete lumbar spine series was performed. Contrast is seen filling the collecting system of both kidneys as well as the urinary bladder from the recent CTA. Diffuse osteopenia noted. A scoliotic cur vature with concavity towards the patient's left centered at L3. A mild grade 1 anterolisthesis of L4 on L5. Disc space narrowing with vacuum disc phenomena at L4-L5. Superior endplate compression defor mity involving L3 with 10-20% loss of height. No cortical irregularity observed. An osteophyte is see n anteriorly at that level. Mild facet arthropathy changes at L4-L5 and L5-S1. CONCLUSION: 1. Age-indeterminate compression deformity involving L3. 10-20% loss of height. 2. Degenerative changes most pronounced at L4-L5. Electronically signed by: Glenn Snell MD Board Certified Radiologist 10/24/2018 3:17 PM EST
[2018-10-24 15:55] LABS: Hemoglobin A1c 4.5 % (4.3-6.0)
--- NOTE | 2018-10-24 16:12 | CT ---
EXAM DATE: 10/24/2018 4:00 PM EST AGE/SEX: 68 years / Male INDICATIONS: PVD both legs, gangrene toe. CLINICAL DATA: This is the patient's initial encounter. Patient reports that signs and symptoms have been present for 1 day and indicates a pain score of 8/10. MEDICAL/SURGICAL HISTORY: Cardiovascular disease. Gastroesophageal reflux disease. Rheumatoid art hritis. Hypertension, renal stones. CABG. Coronary artery stent. Hernia repair. RADIATION DOSE: 2.87 CTDI (mGy) COMPARISON: No prior exams available for comparison. TECHNIQUE: Volumetric scanning was performed using a multi-row detector CT scanner during bolus infu chantel of 98 ml Omnipaque 350 (iohexol) nonionic water-soluble contrast as a single exam dose. The d wero was post processed with a variety of visualization algorithms including full volume maximum inten sity projection, multi-planar sliding thin slab reformation, curved planar reformation, and surface r endering techniques. Using automated exposure control and adjustment of the mA and/or kV according t o patient size, radiation dose was kept as low as reasonably achievable to obtain optimal diagnostic quality images. DICOM format image data is available electronically for review and comparison. FINDINGS: AORTA: Diffuse calcified atheromatous plaque throughout the infrarenal aorta and inflow vessels. At t he junction of the right external iliac artery and common femoral artery there is a calcified plaque generates a 50-60% stenosis. The remaining inflow shows no other hemodynamically significant stenosis . The celiac, SMA, and renal arteries are patent. RIGHT LOWER EXTREMITY: Diffuse calcified plaque throughout the outflow and to a lesser degree runoff vessels. A large calcified plaque is seen throughout the common femoral artery generating a 60-70% st enosis. This extends into the SFA origin where there is a long segment high-grade stenosis. Just infe rior to this large calcified plaque is a short segment occlusion. The mid and distal SFA are heavily diseased as well with multiple areas of high-grade stenosis involving both areas. High-grade stenoses also seen within the dnikf-hem-alpp popliteal artery. A portion of the popliteal artery is totally o bscured by beam hardening artifact from the patient's knee prosthesis. The below-knee popliteal arter y shows scattered calcified plaque with up to 40% stenosis just proximal to the trifurcation origins. Three-vessel runoff is seen to the foot with multiple areas of mild luminal narrowing scattered thro ughout all 3 vessels.. LEFT LOWER EXTREMITY: Eccentric calcified plaque involving the common femoral artery generating atten ded 20% luminal narrowing. The profunda femoris is patent. Diffuse pronounced SFA disease secondary t o calcified plaque generating multiple areas of high-grade stenosis as well as a short segment occlus ion within the region of the abductor canal. The tzybe-nly-rklq popliteal artery is heavily diseased with high-grade stenosis also noted. A portion of the popliteal artery is obscured by beam hardening artifact from a knee prosthesis. The below-knee popliteal artery is patent. Three-vessel runoff is se en to the foot with multiple areas of mild luminal narrowing scattered throughout all trifurcation ve ssels. OTHER STRUCTURES: Emphysematous changes within the lung bases. 8 mm nodule within the left lower lobe . Small calcified gallstones within an unremarkable gallbladder. Small nonobstructing renal calculi b ilaterally measuring 2 mm. A right lower quadrant ileostomy. A near complete colectomy. Degenerative and scoliotic spine. CONCLUSION: 1. Significant stenosis at the junction of the right external iliac artery and common femoral artery . The rest of the inflow is patent. 2. Both lower extremities show multilevel SFA and popliteal disease including short segment occlusio ns. Runoff to the feet are via diffusely but mildly diseased trifurcation vessels. 3. 8mm left lower lobe pulmonary nodule. Consider a follow-up CT the chest in 6 months. 4. Cholelithiasis. Electronically signed by: Glenn Snell MD Board Certified Radiologist 10/24/2018 4:10 PM EST
[2018-10-24] MEDS: Sod Chloride 0.9% Inj 1,000 ML IV.CONT SCH ×2 (17:29→23:50)
[2018-10-24] MEDS: Vancomycin Inj 1,250 MG in Sodium Chlor 0.9% Inj 250 ML IV.SIG SCH (17:30)
[2018-10-25] MEDS: LORazepam 1 MG Tablet PO PRN (02:24)
[2018-10-25] MEDS: Morphine Inj 4 MG/ML Vial IV.PUSH PRN ×2 (03:57→08:13)
[2018-10-25] MEDS: Heparin - SQ 10,000 UNITS/ML Vial SQ SCH (04:00)
[2018-10-25] MEDS: Folic Acid 1 MG Tablet PO SCH (08:12)
[2018-10-25] MEDS: Gabapentin 100 MG Capsule PO SCH (08:12)
[2018-10-25] MEDS: Hydroxychloroquine 200 MG Tablet PO SCH ×2 (08:12→23:40)
[2018-10-25] MEDS: Magnesium Oxide 400 MG Tablet PO SCH (08:12)
[2018-10-25] MEDS ORDERED: HYDROmorphone PF Inj 1 MG/ML Ampul IV.PUSH ONE (08:18)
[2018-10-25] MEDS: Sod Chloride 0.9% Inj 1,000 ML IV.CONT SCH ×2 (09:42→19:58)
--- NOTE | 2018-10-25 10:33 | P.PNVS ---
Subjective Subjective/Hospital Course: 68-year-old male known to me from previous encounters for left colon perforation. Patient now with cellulitis and edema of the right foot Patient has stigmata of coronary artery disease vascular disease and cardiovascular degenerative changes. Full workup is in progress CTA with runoff ordered We will continue to follow Full consult dictated Thanks Misael 10/25/2018 The patient has palpable bilateral femoral pulses weaker right than left. Dopplerable popliteal pulses. Right dorsalis pedis and posterior tibial arteries are present and Doppler +1 and on the left side both vessels are present and Doppler +2. The difference is probably due to the swelling of the right foot more so than any decrease to the blood flow in the foot area. Based on this exam patient probably has some degree of proximal disease in the iliac arteries and then likely either occlusion or stenosis of both SFAs. Clinically blood flow to the right leg is more compromised than to the left leg and this would be more of a regular pattern then diabetic pattern but we will see what CTA with runoff shows. I have examined the patient in the office and then in the hospital. Right foot indeed is swollen, mainly in the midfoot area with dorsum of the foot more prominently, edematous, rubor extending from the metatarsophalangeal area all the way up to the ankle. The patient has abrasion on the side of the foot as well as tiny ulcer on the fifth toe. CTA with runoff confirms the above picture somewhat. Patient has fairly tight right iliac stenosis common femoral artery stenosis and then Rady nearly occluded SFA on the right. Popliteal is patent however only just above the trifurcation Beyond trifurcation patient has runoff and vessels are sclerotic. Based on all of the above patient will need right inflow and outflow reconstruction with combination of stents and bypass. Will take patient to the operating room in next 24-48 hours. Objective Vital Signs / I&O: Vital Signs 10/24/18 12:00 10/24/18 16:00 10/24/18 20:00 Temperature 97.8 F 97.8 F 97.8 F Pulse Rate 73 72 87 Respiratory Rate 17 17 18 Blood Pressure 132/66 125/62 127/66 Pulse Oximetry 99 100 96 10/25/18 00:00 10/25/18 08:00 Temperature 98.1 F 98.5 F Pulse Rate 81 70 Respiratory Rate 20 17 Blood Pressure 118/64 123/63 Pulse Oximetry 100 95 Intake & Output 10/24/18 10/25/18 10/25/18 18:59 06:59 18:59 Intake Total 960 / 960 742.5 / 742.5 Output Total 800 / 800 500 / 500 Balance 160 / 160 242.5 / 242.5 Weight 68.9 kg Intake: IV 262.5 / 262.5 Vancomycin Inj 1,250 MG In NS 262.5 / 262.5 Inj 250 ML @ 262.5 mls/hr IV. SIG Q24H [facility] Rx#:[id number] Oral 960 / 960 480 / 480 Output: Urine 500 / 500 Stool Amount (Stoma) 300 / 300 500 / 500 Right Lower Abdomen 300 / 300 500 / 500 Other: # Voids 5 Date of Last Bowel Movement 10/24/18 Laboratory Results - last 24 hr 10/24/18 10/25/18 12:29 04:57 Creatinine 1.19 Estimated GFR 61 L Hemoglobin A1c 4.5 Microbiology 10/23/18 14:30 Aerobic Blood Culture - Preliminary Blood - Peripheral No growth in 1 day Anaerobic Blood Culture - Preliminary No growth in 1 day 10/23/18 14:36 Aerobic Blood Culture - Preliminary Blood - Peripheral No growth in 1 day Anaerobic Blood Culture - Preliminary No growth in 1 day Impressions Venous Doppler Study 10/23/18 00:00 CONCLUSION: 1. The study is negative for lower extremity deep venous thrombosis. Foot X-Ray 10/23/18 15:33 CONCLUSION: No bone loss is identified. No foreign body identified. Lumbar Spine X-Ray 10/24/18 00:00 CONCLUSION: 1. Age-indeterminate compression deformity involving L3. 10-20% loss of height. 2. Degenerative changes most pronounced at L4-L5. Aorta w/Runoff CTA 10/24/18 13:00 OTHER STRUCTURES: Emphysematous changes within the lung bases. 8 mm nodule within the left lower lobe. Small calcified gallstones within an unremarkable gallbladder. Small nonobstructing renal calculi bilaterally measuring 2 mm. A right lower quadrant ileostomy. A near complete colectomy. Degenerative and scoliotic spine. CONCLUSION: 1. Significant stenosis at the junction of the right external iliac artery and common femoral artery. The rest of the inflow is patent. 2. Both lower extremities show multilevel SFA and popliteal disease including short segment occlusions. Runoff to the feet are via diffusely but mildly diseased trifurcation vessels. 3. 8mm left lower lobe pulmonary nodule. Consider a follow-up CT the chest in 6 months. 4. Cholelithiasis.
--- NOTE | 2018-10-25 10:45 | P.PNIM ---
Subjective Interval history: Follow up on patient with right foot cellulitis, right leg pain. Patient seen and examined. Patient states he is not doing well at all. He says his right leg pain is unbearable. He was not able to sleep last night. He says the right foot is unchanged. He denies any fever or chills. He denies any chest pain or dyspnea. He denies any N/V or abdominal pain. Physical Exam Vital signs: Vital Signs 10/24/18 12:00 10/24/18 16:00 10/24/18 20:00 Temperature 97.8 F 97.8 F 97.8 F Pulse Rate 73 72 87 Respiratory Rate 17 17 18 Blood Pressure 132/66 125/62 127/66 Pulse Oximetry 99 100 96 10/25/18 00:00 10/25/18 08:00 Temperature 98.1 F 98.5 F Pulse Rate 81 70 Respiratory Rate 20 17 Blood Pressure 118/64 123/63 Pulse Oximetry 100 95 Intake & Output 10/24/18 10/25/18 10/25/18 18:59 06:59 18:59 Intake Total 960 / 960 742.5 / 742.5 Output Total 800 / 800 500 / 500 Balance 160 / 160 242.5 / 242.5 Weight 68.9 kg Intake: IV 262.5 / 262.5 Vancomycin Inj 1,250 MG In NS 262.5 / 262.5 Inj 250 ML @ 262.5 mls/hr IV. SIG Q24H [facility] Rx#:[id number] Oral 960 / 960 480 / 480 Output: Urine 500 / 500 Stool Amount (Stoma) 300 / 300 500 / 500 Right Lower Abdomen 300 / 300 500 / 500 Other: # Voids 5 Date of Last Bowel Movement 10/24/18 Narrative: GENERAL: This is a well-nourished, well-developed thin, frail appearing male patient, INAD. Awake and alert. is at the bedside. Appears uncomfortable secondary to right leg pain. SKIN: Warm and dry. No generalized rash. HEENT: NC/AT. Pupil equal and round. No sclera icterus. No nasal drainage. MMM. CARDIOVASCULAR: Normal rate and regular rhythm without murmurs, gallops, or rubs. RESPIRATORY: No accessory muscle use. Clear to auscultation bilaterally. GASTROINTESTINAL: Abdomen soft, non-tender, non-distended. Normal active bowel sounds. +ostomy. MUSCULOSKELETAL: +Bilateral swan neck deformity on hands. +Heberden's nodes. + erythema right heel extending up into medial foot with a 4x4cm ulcerative lesion with surrounding edema. Small dry ulcer of the fifth toe and tip of the 2nd digit chronic per the patient and family. DP pulse poor. NEUROLOGIC: Awake and alert. Nonfocal. Able to move all extremities spontaneously. Normal speech. PSYCH: Appropriate mood and affect. Normal judgement and insight. Results Labs CBC & Chem 7: 10/23/18 20:25 10/25/18 04:57 Labs: Microbiology 10/23/18 14:30 Blood - Peripheral Aerobic Blood Culture - Preliminary No growth in 1 day 10/23/18 14:30 Blood - Peripheral Anaerobic Blood Culture - Preliminary No growth in 1 day 10/23/18 14:36 Blood - Peripheral Aerobic Blood Culture - Preliminary No growth in 1 day 10/23/18 14:36 Blood - Peripheral Anaerobic Blood Culture - Preliminary No growth in 1 day Imaging Imaging: Impressions Lumbar Spine X-Ray 10/24/18 00:00 CONCLUSION: 1. Age-indeterminate compression deformity involving L3. 10-20% loss of height. 2. Degenerative changes most pronounced at L4-L5. Aorta w/Runoff CTA 10/24/18 13:00 OTHER STRUCTURES: Emphysematous changes within the lung bases. 8 mm nodule within the left lower lobe. Small calcified gallstones within an unremarkable gallbladder. Small nonobstructing renal calculi bilaterally measuring 2 mm. A right lower quadrant ileostomy. A near complete colectomy. Degenerative and scoliotic spine. CONCLUSION: 1. Significant stenosis at the junction of the right external iliac artery and common femoral artery. The rest of the inflow is patent. 2. Both lower extremities show multilevel SFA and popliteal disease including short segment occlusions. Runoff to the feet are via diffusely but mildly diseased trifurcation vessels. 3. 8mm left lower lobe pulmonary nodule. Consider a follow-up CT the chest in 6 months. 4. Cholelithiasis. Assessment and Plan Plan 68-year-old male with: SIRS with leukocytosis WBC 12.1 and elevated HR 95, concern for early sepsis in this immunocompromised patient, improved Right lower extremity cellulitis: Failed outpatient treatment. 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 Both lower extremities show multilevel SFA and popliteal disease including short segment occlusions. Runoff to the feet are via diffusely but mildly diseased trifurcation vessels. -Vascular surgery, Dr. Douglas following, appreciate assistance. CTA w/runoff shows high grade right iliac stenosis, common femoral artery stenosis and nearly occluded SFA. DW Dr. Douglas, plan for surgical intervention today. Keep patient NPO. -Pain control - not well managed. Will start on IV Dilaudid prn. D/C IV Morphine. Bowel regimen. Acute on chronic kidney disease, suspect 2/2 dehydration/poor po intake, improving -Renal function worse compared to baseline. Cr now trending down s/p IVF, Cr 1.97 -> 1.19 -Avoid nephrotoxins -continue to monitor renal indices History of colonic perforation and retroperitoneal abscess, grew MDRO including VRE, MRSA, Sarita glabrata and Klebsiella: Patient is status post ileostomy. He completed a course of treatment with antibiotics. -Stable from a GI standpoint -Continue to monitor Risk for protein calorie malnutrition Weight loss secondary to poor po intake -[employer] consultant following -Ensure Enlive TID -monitor weights Rheumatoid arthritis, chronic, stable -Continue hydroxychloroquine Hyperlipidemia -Continue statin Osteopenia Chronic compression fracture L3 -xray L spine shoes diffuse osteopenia, L3 compression fracture. Patient has no complaints of back pain. -obtain Vitamin D level LLL pulmonary nodule, incidental finding -CTA shows 8mm nodule in left lower lobe. Recommend repeat CT chest in 6 months. Discussed findings with patient and at bedside. GI prophylaxis: PPI. DVT PPx: Heparin Code Status: FULL Discussed Condition With: patient, at bedside, nursing staff, Dr. Gilbert and Dr. Bianchi Discharge Planning: Not ready for discharge Progress Note: Quality VTE Deep Vein Thrombosis/Pulmonary Embolism Present on Admission: No
[2018-10-25] MEDS ORDERED: Protamine Sulfate Inj 50 MG/5 ML Vial ONE (12:28)
[2018-10-25] MEDS ORDERED: Heparin/NS PF Inj 500 ML ONE (12:28)
[2018-10-25] MEDS ORDERED: Heparin 10,000 UNITS/10 ML Vial (for IV use) ONE ×2 (12:28→21:43)
[2018-10-25] MEDS ORDERED: Hydrocortisone Sod Succinate 100 MG Vial ONE (12:40)
[2018-10-25] MEDS ORDERED: Lidocaine PF 1% Inj 5 ML Syringe INFILTRATN ONE (12:59)
[2018-10-25] MEDS ORDERED: Phenylephrine/NS 1000 MCG/10ML Syringe IV.PUSH ONE (12:59)
[2018-10-25] MEDS ORDERED: Levofloxacin 500 mg Premix Inj 500 MG/100 ML PIGGYBACK IV.SIG ONE (14:09)
[2018-10-25] MEDS ORDERED: Sugammadex Inj 200 MG/2 ML Vial IV.PUSH ONE (15:37)
--- NOTE | 2018-10-25 16:10 | P.PNID ---
Subjective Allergies/Adverse Reactions: Allergies No Known Allergies Allergy (Verified 10/23/18 13:46) Objective Vital Signs 10/24/18 20:00 10/25/18 00:00 10/25/18 08:00 Temperature 97.8 F 98.1 F 98.5 F Pulse Rate 87 81 70 Respiratory Rate 18 20 17 Blood Pressure 127/66 118/64 123/63 Pulse Oximetry 96 100 95 Intake & Output 10/24/18 10/25/18 10/25/18 18:59 06:59 18:59 Intake Total 960 / 960 742.5 / 742.5 600 / 600 Output Total 800 / 800 500 / 500 Balance 160 / 160 242.5 / 242.5 600 / 600 Weight 68.9 kg Intake: IV 262.5 / 262.5 600 / 600 Heparin/NS PF Inj 500 ML @ 0 500 / 500 mls/hr .ROUTE .[facility] Rx#: [id number] Levaquin 500 mg Premix Inj 500 100 / 100 mg In 100 ml @ 0 mls/hr IV.SIG .[facility] Rx#:[id number] Vancomycin Inj 1,250 MG In NS 262.5 / 262.5 Inj 250 ML @ 262.5 mls/hr IV. SIG Q24H [facility] Rx#:[id number] Oral 960 / 960 480 / 480 Output: Urine 500 / 500 Stool Amount (Stoma) 300 / 300 500 / 500 Right Lower Abdomen 300 / 300 500 / 500 Other: # Voids 5 Date of Last Bowel Movement 10/24/18 10/24/18 10/23/18 14:30 Blood - Peripheral Aerobic Blood Culture - Preliminary No growth in 2 days 10/23/18 14:30 Blood - Peripheral Anaerobic Blood Culture - Preliminary No growth in 2 days 10/23/18 14:36 Blood - Peripheral Aerobic Blood Culture - Preliminary No growth in 2 days 10/23/18 14:36 Blood - Peripheral Anaerobic Blood Culture - Preliminary No growth in 2 days Lab - Hematology Results 10/23/18 20:25 WBC 9.6 RBC 3.17 L Hgb 10.1 L Hct 30.0 L MCV 94.7 MCH 31.8 MCHC 33.6 RDW 17.0 Plt Count 349 MPV 7.3 Neut % (Auto) 83.0 H Lymph % (Auto) 12.5 Leslie % (Auto) 4.1 Eos % (Auto) 0.2 Baso % (Auto) 0.2 Neut # (Auto) 7.9 H Lymph # (Auto) 1.2 Leslie # (Auto) 0.4 Eos # (Auto) 0.0 Baso # (Auto) 0.0 WBC Differential . Differential Comment Auto diff final Lab - Chemistry Results 10/23/18 10/24/18 10/24/18 20:25 04:07 12:29 Sodium 135 L Potassium 4.3 Chloride 107 Carbon Dioxide 20.2 L Anion Gap 8 BUN 38 H Creatinine 1.53 H 1.33 H Estimated GFR 45 L 53 L Random Glucose 117 H Hemoglobin A1c 4.5 Calcium 9.2 Vitamin D 25-Hydroxy 10/25/18 10/25/18 04:57 04:57 Sodium Potassium Chloride Carbon Dioxide Anion Gap BUN Creatinine 1.19 Estimated GFR 61 L Random Glucose Hemoglobin A1c Calcium Vitamin D 25-Hydroxy 26.3 L Imaging: ITS Impressions Venous Doppler Study 10/23/18 00:00 CONCLUSION: 1. The study is negative for lower extremity deep venous thrombosis. Foot X-Ray 10/23/18 15:33 CONCLUSION: No bone loss is identified. No foreign body identified. Lumbar Spine X-Ray 10/24/18 00:00 CONCLUSION: 1. Age-indeterminate compression deformity involving L3. 10-20% loss of height. 2. Degenerative changes most pronounced at L4-L5. Aorta w/Runoff CTA 10/24/18 13:00 OTHER STRUCTURES: Emphysematous changes within the lung bases. 8 mm nodule within the left lower lobe. Small calcified gallstones within an unremarkable gallbladder. Small nonobstructing renal calculi bilaterally measuring 2 mm. A right lower quadrant ileostomy. A near complete colectomy. Degenerative and scoliotic spine. CONCLUSION: 1. Significant stenosis at the junction of the right external iliac artery and common femoral artery. The rest of the inflow is patent. 2. Both lower extremities show multilevel SFA and popliteal disease including short segment occlusions. Runoff to the feet are via diffusely but mildly diseased trifurcation vessels. 3. 8mm left lower lobe pulmonary nodule. Consider a follow-up CT the chest in 6 months. 4. Cholelithiasis.
[2018-10-25 17:16] LABS: Hematocrit 24.7 % (39.0-51.0); Hemoglobin 8.4 gm/dL (13.0-17.0)
[2018-10-25] MEDS ORDERED: *HYDROmorphone PF Inj 1 MG/ML Ampul PERIprocedural Use ONLY ONE ×4 (18:42→20:09)
[2018-10-25] MEDS ORDERED: fentaNYL Citrate Inj 100 MCG/2 ML Ampul ONE ×2 (18:45→21:47)
[2018-10-25] MEDS ORDERED: Morphine Inj 4 MG/ML Vial ONE ×2 (18:46)
[2018-10-25] MEDS: Vancomycin Inj 1,250 MG in Sodium Chlor 0.9% Inj 250 ML IV.SIG SCH (19:12)
[2018-10-25] MEDS ORDERED: Heparin Drip 25,000 UNIT/250 ML BAG IV.CONT ONE (20:26)
[2018-10-25] MEDS ORDERED: fentaNYL Citrate Inj 250 MCG/5 ML Ampul ONE (20:34)
[2018-10-25] MEDS ORDERED: Heparin 10,000 UNITS/10 ML Vial (for IV use) I-ARTERIAL ONE (22:12)
--- NOTE | 2018-10-25 22:32 | P.RAD ---
Post Procedure Progress Note - Pre Procedure Diagnosis (1) Peripheral arterial occlusive disease - Post Procedure Diagnosis (1) Peripheral arterial occlusive disease - Procedure Information Procedure Date: 10/25/18 Supervising Radiologist: Rik Pepper MD Anesthesia: Conscious Sedation - Plan of Activity Patient to Unit: Critical Care Patient Condition: Good See PACS Report for procedural detail/treatment. Vascular - Arterial Procedure right Leg Procedure: Embolectomy (popliteal artery with suction)
[2018-10-25] MEDS ORDERED: Naloxone Inj 0.4 MG/ML Vial IV.PUSH PRN (23:08)
[2018-10-25] MEDS ORDERED: Heparin Drip 25,000 UNIT/250 ML BAG IV.CONT PRN (23:32)
[2018-10-25] MEDS: Senna/Docusate Sodium 8.6/50 MG Tablet PO SCH (23:40)
[2018-10-25] MEDS: HYDROmorphone PF Inj 0.5 MG/0.5 ML Syringe IV.PUSH PRN (23:59)
[2018-10-26] MEDS: LORazepam 1 MG Tablet PO PRN (00:58)
[2018-10-26] MEDS: HYDROmorphone PCA Inj 6 MG/30 ML PCA.VIAL PCA PRN ×4 (01:39→18:16)
[2018-10-26 04:15] LABS: Hemoglobin 8.8 gm/dL (13.0-17.0); Mean Corpuscular Hemoglobin 32.1 pg (27.0-34.0); Mean Corpuscular Volume 94.5 fL (80.0-100.0); Mean Platelet Volume 6.6 fL (7.0-11.0); Platelet Count 278 th/mm3 (150-450); Red Blood Count 2.75 mil/mm3 (4.50-5.90); Red Cell Distribution Width 17.2 % (11.6-17.2); White Blood Count 9.4 th/mm3 (4.0-11.0)
[2018-10-26] MEDS: Sod Chloride 0.9% Inj 1,000 ML IV.CONT SCH ×2 (05:29→16:50)
[2018-10-26 05:48] LABS: Baso % (Auto) 0.5 % (0.0-2.0); Eos % (Auto) 0.2 % (0.0-4.0); Hematocrit 27.6 % (39.0-51.0); Hemoglobin 9.4 gm/dL (13.0-17.0); Lymph # (Auto) 1.6 th/mm3 (1.0-4.8); Lymph % (Auto) 15.4 % (9.0-44.0); Mean Corpuscular Hemoglobin 31.9 pg (27.0-34.0); Mean Corpuscular Volume 93.7 fL (80.0-100.0); Mono # (Auto) 0.9 th/mm3 (0.0-0.9); Mono % (Auto) 9.2 % (0.0-8.0); Neut # (Auto) 7.5 th/mm3 (1.8-7.7); Neut % (Auto) 74.7 % (16.0-70.0); Platelet Count 299 th/mm3 (150-450); Red Blood Count 2.94 mil/mm3 (4.50-5.90); Red Cell Distribution Width 17.8 % (11.6-17.2); White Blood Count 10.1 th/mm3 (4.0-11.0)
[2018-10-26 07:04] LABS: Calcium 8.5 mg/dL (8.5-10.1); Carbon Dioxide 23.9 meq/L (21.0-32.0); Potassium 3.7 meq/L (3.5-5.1)
[2018-10-26] MEDS: Magnesium Oxide 400 MG Tablet PO SCH (09:05)
[2018-10-26] MEDS: Hydroxychloroquine 200 MG Tablet PO SCH ×2 (09:05→20:57)
[2018-10-26] MEDS: Senna/Docusate Sodium 8.6/50 MG Tablet PO SCH ×3 (09:05→21:11)
[2018-10-26] MEDS: Folic Acid 1 MG Tablet PO SCH (09:06)
--- NOTE | 2018-10-26 11:04 | P.PNVS ---
Subjective Subjective/Hospital Course: 68-year-old male known to me from previous encounters for left colon perforation. Patient now with cellulitis and edema of the right foot Patient has stigmata of coronary artery disease vascular disease and cardiovascular degenerative changes. Full workup is in progress CTA with runoff ordered We will continue to follow Full consult dictated Thanks Misael 10/25/2018 The patient has palpable bilateral femoral pulses weaker right than left. Dopplerable popliteal pulses. Right dorsalis pedis and posterior tibial arteries are present and Doppler +1 and on the left side both vessels are present and Doppler +2. The difference is probably due to the swelling of the right foot more so than any decrease to the blood flow in the foot area. Based on this exam patient probably has some degree of proximal disease in the iliac arteries and then likely either occlusion or stenosis of both SFAs. Clinically blood flow to the right leg is more compromised than to the left leg and this would be more of a regular pattern then diabetic pattern but we will see what CTA with runoff shows. I have examined the patient in the office and then in the hospital. Right foot indeed is swollen, mainly in the midfoot area with dorsum of the foot more prominently, edematous, rubor extending from the metatarsophalangeal area all the way up to the ankle. The patient has abrasion on the side of the foot as well as tiny ulcer on the fifth toe. CTA with runoff confirms the above picture somewhat. Patient has fairly tight right iliac stenosis common femoral artery stenosis and then Rady nearly occluded SFA on the right. Popliteal is patent however only just above the trifurcation Beyond trifurcation patient has runoff and vessels are sclerotic. Based on all of the above patient will need right inflow and outflow reconstruction with combination of stents and bypass. Will take patient to the operating room in next 24-48 hours. 10/26/2018 Status post Right external iliac and common femoral endarterectomy and bovine patch angioplasty Right femoral to distal bypass with in situ saphenous vein Right popliteal endarterectomy Right popliteal and distal catheter suction penumbra embolectomy Arteriogram x4 Incisions are clean and dry and patient has a bounding pulse in the saphenous vein graft Excellent posterior tibial and dorsalis pedis pulses and foot is nice and warm Patient can transfer to floor DC heparin start on Eliquis DC [place] DC IV fluids Objective Vital Signs / I&O: Vital Signs 10/25/18 18:25 10/25/18 18:30 10/25/18 18:45 Temperature 98.3 F Pulse Rate 81 77 73 Respiratory Rate 19 11 L 11 L Blood Pressure 120/78 123/70 123/67 Pulse Oximetry 97 97 96 10/25/18 19:00 10/25/18 19:15 10/25/18 19:30 Temperature Pulse Rate 80 75 76 Respiratory Rate 13 12 23 Blood Pressure 133/63 117/64 126/65 Pulse Oximetry 96 97 97 10/25/18 19:45 10/25/18 20:00 10/25/18 20:15 Temperature Pulse Rate 79 79 80 Respiratory Rate 14 16 21 Blood Pressure 115/68 116/70 130/66 Pulse Oximetry 97 97 97 10/25/18 20:35 10/25/18 23:00 10/25/18 23:15 Temperature 97.4 F L 97.9 F Pulse Rate 78 76 76 Respiratory Rate 14 20 Blood Pressure 132/68 124/65 129/62 Pulse Oximetry 97 99 95 10/25/18 23:30 10/25/18 23:45 10/26/18 00:00 Temperature Pulse Rate 80 76 82 Respiratory Rate 22 22 20 Blood Pressure 125/67 137/69 131/75 Pulse Oximetry 99 99 96 10/26/18 00:15 10/26/18 00:30 10/26/18 00:45 Temperature Pulse Rate 77 76 80 Respiratory Rate 20 18 23 Blood Pressure 128/62 129/70 136/69 Pulse Oximetry 100 97 97 10/26/18 01:00 10/26/18 01:15 10/26/18 01:30 Temperature Pulse Rate 82 82 84 Respiratory Rate 22 18 21 Blood Pressure 122/60 137/70 139/73 Pulse Oximetry 100 100 100 10/26/18 01:45 10/26/18 02:00 10/26/18 02:15 Temperature Pulse Rate 79 84 78 Respiratory Rate 17 20 20 Blood Pressure 142/65 H 135/60 127/60 Pulse Oximetry 100 98 99 10/26/18 02:30 10/26/18 02:45 10/26/18 03:00 Temperature Pulse Rate 85 81 81 Respiratory Rate 20 18 20 Blood Pressure 135/62 130/61 124/60 Pulse Oximetry 99 100 100 10/26/18 03:15 10/26/18 03:30 10/26/18 03:45 Temperature Pulse Rate 86 85 84 Respiratory Rate 22 18 21 Blood Pressure 129/60 137/66 133/63 Pulse Oximetry 98 99 100 10/26/18 04:00 10/26/18 04:15 10/26/18 04:30 Temperature Pulse Rate 84 85 89 Respiratory Rate 19 19 22 Blood Pressure 132/70 128/63 131/68 Pulse Oximetry 97 98 100 10/26/18 04:45 10/26/18 05:00 10/26/18 05:15 Temperature Pulse Rate 95 H 88 89 Respiratory Rate 18 22 20 Blood Pressure 152/77 H 119/59 L 132/67 Pulse Oximetry 98 95 98 10/26/18 07:22 10/26/18 09:41 Temperature Pulse Rate Respiratory Rate 20 27 H Blood Pressure Pulse Oximetry Intake & Output 10/25/18 10/26/18 10/26/18 18:59 06:59 18:59 Intake Total 3600 / 3600 1842.5 / 1842.5 Output Total 525 / 525 1000 / 1000 Balance 3075 / 3075 842.5 / 842.5 Weight 80.2 kg Intake: IV 1600 / 1600 1262.5 / 1262.5 Heparin/NS PF Inj 500 ML @ 0 500 / 500 mls/hr .ROUTE .STK-MED ONE Rx#: [id number] NS Inj 1,000 ML @ 100 mls/hr IV 1000 / 1000 1000 / 1000 .CONT .Q10H [facility] Rx#:[id number] Levaquin 500 mg Premix Inj 500 100 / 100 mg In 100 ml @ 0 mls/hr IV.SIG .STK-MED ONE Rx#:[id number] Vancomycin Inj 1,250 MG In NS 262.5 / 262.5 Inj 250 ML @ 262.5 mls/hr IV. SIG Q24H [facility] Rx#:[id number] Oral 580 / 580 Anesthesia Amount 1999 / 1999 Output: Estimated Blood Loss 75 / 75 Urine Amount (Catheter) 450 / 450 1000 / 1000 Indwelling Urethral Catheter 450 / 450 1000 / 1000 Other: Date of Last Bowel Movement 10/24/18 Laboratory Results - last 24 hr 10/25/18 10/25/18 10/25/18 04:57 11:20 16:38 WBC RBC Hgb 8.4 L Hct 24.7 L MCV MCH MCHC RDW Plt Count MPV Neut % (Auto) Lymph % (Auto) [place] % (Auto) Eos % (Auto) Baso % (Auto) Neut # (Auto) Lymph # (Auto) [place] # (Auto) Eos # (Auto) Baso # (Auto) WBC Differential Differential Comment APTT Sodium Potassium Chloride Carbon Dioxide Anion Gap BUN Creatinine Estimated GFR Random Glucose Calcium Vitamin D 25-Hydroxy 26.3 L Blood Type A Positive Antibody Screen Negative MTS Gel Crossmatch See Detail 10/25/18 10/26/18 10/26/18 20:00 04:02 04:02 WBC 9.4 RBC 2.75 L Hgb 8.8 L Hct 26.0 L MCV 94.5 MCH 32.1 MCHC 34.0 RDW 17.2 Plt Count 278 MPV 6.6 L Neut % (Auto) Lymph % (Auto) [place] % (Auto) Eos % (Auto) Baso % (Auto) Neut # (Auto) Lymph # (Auto) [place] # (Auto) Eos # (Auto) Baso # (Auto) WBC Differential Differential Comment APTT 38.3 H 47.4 H D Sodium Potassium Chloride Carbon Dioxide Anion Gap BUN Creatinine Estimated GFR Random Glucose Calcium Vitamin D 25-Hydroxy Blood Type Antibody Screen MTS Gel Crossmatch 10/26/18 10/26/18 04:55 04:55 WBC 10.1 RBC 2.94 L Hgb 9.4 L Hct 27.6 L MCV 93.7 MCH 31.9 MCHC 34.0 RDW 17.8 H Plt Count 299 MPV 7.0 Neut % (Auto) 74.7 H Lymph % (Auto) 15.4 [place] % (Auto) 9.2 H Eos % (Auto) 0.2 Baso % (Auto) 0.5 Neut # (Auto) 7.5 Lymph # (Auto) 1.6 [place] # (Auto) 0.9 Eos # (Auto) 0.0 Baso # (Auto) 0.0 WBC Differential . Differential Comment Auto diff final APTT Sodium 143 Potassium 3.7 Chloride 110 H Carbon Dioxide 23.9 Anion Gap 9 BUN 15 Creatinine 0.87 Estimated GFR 87 L Random Glucose 81 Calcium 8.5 Vitamin D 25-Hydroxy Blood Type Antibody Screen MTS Gel Crossmatch Microbiology 10/23/18 14:30 Aerobic Blood Culture - Preliminary Blood - Peripheral No growth in 3 days Anaerobic Blood Culture - Preliminary No growth in 3 days 10/23/18 14:36 Aerobic Blood Culture - Preliminary Blood - Peripheral No growth in 3 days Anaerobic Blood Culture - Preliminary No growth in 3 days Impressions Lumbar Spine X-Ray 10/24/18 00:00 CONCLUSION: 1. Age-indeterminate compression deformity involving L3. 10-20% loss of height. 2. Degenerative changes most pronounced at L4-L5. Aorta w/Runoff CTA 10/24/18 13:00 OTHER STRUCTURES: Emphysematous changes within the lung bases. 8 mm nodule within the left lower lobe. Small calcified gallstones within an unremarkable gallbladder. Small nonobstructing renal calculi bilaterally measuring 2 mm. A right lower quadrant ileostomy. A near complete colectomy. Degenerative and scoliotic spine. CONCLUSION: 1. Significant stenosis at the junction of the right external iliac artery and common femoral artery. The rest of the inflow is patent. 2. Both lower extremities show multilevel SFA and popliteal disease including short segment occlusions. Runoff to the feet are via diffusely but mildly diseased trifurcation vessels. 3. 8mm left lower lobe pulmonary nodule. Consider a follow-up CT the chest in 6 months. 4. Cholelithiasis.
--- NOTE | 2018-10-26 12:05 | MP ---
cc: Anahy Gilbert MD DATE OF OPERATION: 10/25/2018 PREOPERATIVE DIAGNOSES: Ischemia of the right foot, cellulitis of the right foot, near occlusion of the right external iliac and common femoral arteries, superficial femoral artery occlusion, popliteal occlusion with proximal occlusion with distal severe stenosis. POSTOPERATIVE DIAGNOSES: Ischemia of the right foot, cellulitis of the right foot, near occlusion of the right external iliac and common femoral arteries, superficial femoral artery occlusion, popliteal occlusion with proximal occlusion with distal severe stenosis. OPERATIVE PROCEDURE: Right external iliac and common femoral endarterectomy patch angioplasty, right femoral to distal bypass with in situ saphenous vein, and a right popliteal endarterectomy, runoff x2. SURGEON: Anahy Gilbert MD. ANESTHESIA: General. ESTIMATED BLOOD LOSS: 200 mL. DESCRIPTION OF PROCEDURE: The patient was prepped and draped in the usual fashion. The right groin incision made and the common femoral, deep and superficial femoral arteries are isolated. These are hard as a rock. Vessel loop is placed around each vessel respectively. With the upper arm in an iron internet consultant retractor, the distal external iliac artery is carefully dissected just below the inguinal ligament. The patient has several large branches that come off the external iliac artery and, of course, those are left in place. Loosely, a silk loop is placed around just to keep some control while working on it. The saphenous vein is now isolated proximally and junction of saphenous vein to common femoral vein is isolated. Saphenous vein is adequate in size, measuring about 5 to 6 mm, which is great for the bypass. Therefore, decision is made to use the saphenous vein for this bypass considering the distal end we will go through. The popliteal space is now opened and popliteal artery isolated. Popliteal artery is like a lead pipe, essentially firm, occluded proximally, and continuation of occluded distal SFA and adductor canal. Distal and popliteal artery is patent just above the trifurcation. The vessel loops are placed around it again. Decision is now made to use very distal popliteal artery just at the trifurcation level. Procedure is now continued by isolating the saphenous vein through a series of small incisions in the medial aspect of the thigh and then the branches are ligated, divided proximally and distally to allow for the length of the saphenous vein to reach both on the anastomotic planned areas. The patient is given 7000 units of heparin and then the proximal area is attended to first. A Satinsky clamp is placed proximally on the external iliac artery very high and then profunda clamps are placed on the superficial femoral and deep femoral arteries. The vessel is opened longitudinally using 11 blade and Cagle scissors. There is a huge plaque in the vessel that is basically calcified rock. This is very carefully dissected in immediate plane using [place] dissector and dissection is carried out all the way to the distal external iliac artery about an inch into it. This is where the plaque ends. The entire plaque is removed and the patient now has a brisk flow from the top down so the decision is made not to do anything with the external iliac artery proximally because obviously the flow is adequate and at a high pressure. Satinsky is reapplied. The bovine patch 1 cm x 8 cm is selected and sewn in with running 5-0 Prolene, creating a spatulated patch angioplasty. Profundoplasty is carried out in the deep femoral and now back bleeds very nicely. Once the patch angioplasty is completed, the saphenous vein is attended. A small Satinsky clamp is placed at the junction of the saphenous and femoral veins and then a saphenous vein is shaved off allowing for a nice arredondo on it. The femoral vein is closed with running 4-0 Prolene and then Satinsky removed. There is a good flow now in femoral vein. The saphenous vein is now mobilized medially and then incision is made in a bovine patch to accommodate for the anastomosis. A spatulated hooded anastomosis is carried out between the saphenous vein and common femoral artery and the patch run using 6-0 Prolene. Of course, the first saphenofemoral valve is removed manually, as I could see it, using Cagle scissors. Now we went distally. The clamps are now removed and blood is allowed to be reestablished in the leg and in the saphenous vein as far as it goes down to the next valve. The popliteal artery is now attended. It is opened longitudinally and a huge plaque is present. This one is cleaned out and now finally there is backbleeding from the popliteal artery and very distally it is soft. LeMaitre valvulotome is now used from distal to proximal and passed 3 times until all the valves are gone. Now, the patient has a bounding flow in the saphenous vein graft. There are no other branches of saphenous vein that is stealing blood. All of those have been ligated prior to this. Popliteal artery is now marked with indelible marker to prevent kinking and then an incision is made with a 15 blade in it to spatulate the vessel. The vessel is sewn in with a running 6-0 Prolene and an anastomosis, distal popliteal artery and a saphenous vein created. All the clamps are now remove and blood flow reestablished. The patient has a bounding pulse in the graft and distally. The foot warms up and becomes ruborous. This completes this part of the procedure. All the areas are now irrigated with copious amounts of saline and then incisions are closed with 0 Vicryl in layers and 4-0 Monocryl for the skin for old stab wounds as well as the groin and popliteal space. The patient is taken out of the operating room in stable condition. In the recovery room, the patient is noted to have cool distal foot and I decided to take him to the intervention angio suite. We shot arteriogram which shows that there is a small clot present at the trifurcation distal to the anastomosis. Therefore, through the left groin, a suction Penumbra catheter is inserted and clot removed and then area tightened down with a 5 mm balloon. This reestablished the nice flow. Then, from that point on, foot is nice and warm. The details of the second part are dictated by Dr. Pepper. MD JOLLY Morton/samanta , 10:56 AM , 11:12 AM
[2018-10-26] MEDS: Lactobacillus Acidophilus/L. Spores Tablet PO SCH ×2 (14:21→17:15)
--- NOTE | 2018-10-26 16:19 | P.PNIM ---
Physical Exam Vital signs: Vital Signs 10/25/18 18:25 10/25/18 18:30 10/25/18 18:45 Temperature 98.3 F Pulse Rate 81 77 73 Respiratory Rate 19 11 L 11 L Blood Pressure 120/78 123/70 123/67 Pulse Oximetry 97 97 96 10/25/18 19:00 10/25/18 19:15 10/25/18 19:30 Temperature Pulse Rate 80 75 76 Respiratory Rate 13 12 23 Blood Pressure 133/63 117/64 126/65 Pulse Oximetry 96 97 97 10/25/18 19:45 10/25/18 20:00 10/25/18 20:15 Temperature Pulse Rate 79 79 80 Respiratory Rate 14 16 21 Blood Pressure 115/68 116/70 130/66 Pulse Oximetry 97 97 97 10/25/18 20:35 10/25/18 23:00 10/25/18 23:15 Temperature 97.4 F L 97.9 F Pulse Rate 78 76 76 Respiratory Rate 14 20 Blood Pressure 132/68 124/65 129/62 Pulse Oximetry 97 99 95 10/25/18 23:30 10/25/18 23:45 10/26/18 00:00 Temperature Pulse Rate 80 76 82 Respiratory Rate 22 22 20 Blood Pressure 125/67 137/69 131/75 Pulse Oximetry 99 99 96 10/26/18 00:15 10/26/18 00:30 10/26/18 00:45 Temperature Pulse Rate 77 76 80 Respiratory Rate 20 18 23 Blood Pressure 128/62 129/70 136/69 Pulse Oximetry 100 97 97 10/26/18 01:00 10/26/18 01:15 10/26/18 01:30 Temperature Pulse Rate 82 82 84 Respiratory Rate 22 18 21 Blood Pressure 122/60 137/70 139/73 Pulse Oximetry 100 100 100 10/26/18 01:45 10/26/18 02:00 10/26/18 02:15 Temperature Pulse Rate 79 84 78 Respiratory Rate 17 20 20 Blood Pressure 142/65 H 135/60 127/60 Pulse Oximetry 100 98 99 10/26/18 02:30 10/26/18 02:45 10/26/18 03:00 Temperature Pulse Rate 85 81 81 Respiratory Rate 20 18 20 Blood Pressure 135/62 130/61 124/60 Pulse Oximetry 99 100 100 10/26/18 03:15 10/26/18 03:30 10/26/18 03:45 Temperature Pulse Rate 86 85 84 Respiratory Rate 22 18 21 Blood Pressure 129/60 137/66 133/63 Pulse Oximetry 98 99 100 10/26/18 04:00 10/26/18 04:15 10/26/18 04:30 Temperature Pulse Rate 84 85 89 Respiratory Rate 19 19 22 Blood Pressure 132/70 128/63 131/68 Pulse Oximetry 97 98 100 10/26/18 04:45 10/26/18 05:00 10/26/18 05:15 Temperature Pulse Rate 95 H 88 89 Respiratory Rate 18 22 20 Blood Pressure 152/77 H 119/59 L 132/67 Pulse Oximetry 98 95 98 10/26/18 07:22 10/26/18 08:45 10/26/18 09:41 Temperature Pulse Rate Respiratory Rate 20 17 27 H Blood Pressure Pulse Oximetry Intake & Output 10/25/18 10/26/18 10/26/18 18:59 06:59 18:59 Intake Total 3600 / 3600 1842.5 / 1842.5 610 / 610 Output Total 525 / 525 1000 / 1000 Balance 3075 / 3075 842.5 / 842.5 610 / 610 Weight 80.2 kg Intake: IV 1600 / 1600 1262.5 / 1262.5 610 / 610 Heparin/NS PF Inj 500 ML @ 0 500 / 500 mls/hr .ROUTE .STK-MED ONE Rx#: [id number] Heparin/D5W 25,000 U/250 mL 25, 160 / 160 000 unit In 250 ml @ Per Protocol IV.CONT TITRATE PRN Rx #:[id number] NS Inj 1,000 ML @ 100 mls/hr IV 1000 / 1000 1000 / 1000 200 / 200 .CONT .Q10H [facility] Rx#:[id number] Levaquin 500 mg Premix Inj 500 100 / 100 mg In 100 ml @ 0 mls/hr IV.SIG .STK-MED ONE Rx#:[id number] Vancomycin Inj 1,250 MG In NS 262.5 / 262.5 Inj 250 ML @ 262.5 mls/hr IV. SIG Q24H [facility] Rx#:[id number] Oral 580 / 580 Anesthesia Amount 1999 / 1999 Output: Estimated Blood Loss 75 / 75 Urine Amount (Catheter) 450 / 450 1000 / 1000 Indwelling Urethral Catheter 450 / 450 1000 / 1000 Other: Date of Last Bowel Movement 10/24/18 10/26/18 Narrative: GENERAL:elderly man in no distress laying in bed. SKIN: Warm and dry. No generalized rash. HEENT: not pale,anicteric CARDIOVASCULAR: Normal rate and regular rhythm without murmurs, gallops, or rubs. RESPIRATORY: CTAB. GASTROINTESTINAL: Abdomen soft, non-tender, non-distended. Normal active bowel sounds. +ostomy with soft brown stool in bag. MUSCULOSKELETAL: +Bilateral swan neck deformity on hands. +Heberden's nodes. Right medial foot has a 1 x 1 cm superficial ulcer with surrounding edema, erythema and purplish discoloration. Right heel +erythema and warmth extending up to above the ankle. Small dry ulcer of the fifth toe and tip of the 2nd digit chronic . DP and PT pulses good on doppler. NEUROLOGIC: Awake and alert. Nonfocal. Able to move all extremities spontaneously. Normal speech. PSYCH: Appropriate mood and affect. Somewhat anxious. Urinary Catheter Management Indwelling Urethral Catheter: Cath placed during this visit: yes Reason for continuing: Hourly intake/output Insertion date: 10/25/18 Insertion time: 13:18 Results Labs CBC & Chem 7: 10/26/18 04:55 10/26/18 04:55 Labs: Microbiology 10/23/18 14:30 Blood - Peripheral Aerobic Blood Culture - Preliminary No growth in 3 days 10/23/18 14:30 Blood - Peripheral Anaerobic Blood Culture - Preliminary No growth in 3 days 10/23/18 14:36 Blood - Peripheral Aerobic Blood Culture - Preliminary No growth in 3 days 10/23/18 14:36 Blood - Peripheral Anaerobic Blood Culture - Preliminary No growth in 3 days Assessment and Plan Plan 68-year-old male with presented with rt foot pain, found to have right external iliac and common femoral artery stenosis and is now s/p Right external iliac and common femoral endarterectomy and bovine patch angioplasty Right femoral to distal bypass with in situ saphenous vein, Right popliteal endarterectomy, Right popliteal and distal catheter suction penumbra embolectomy. foot pain improving, RLE pulses noted to be good on doppler. continue pain control with DIRECTOR SEARCH. On Eliquis for anticoagulation. can discontinue antibiotics since pain and erythema were related to vascular ischemia rather than infection. Acute on chronic kidney disease, suspect 2/2 dehydration/poor po intake-- resolved. History of colonic perforation and retroperitoneal abscess, grew MDRO including VRE, MRSA, Sarita glabrata and Klebsiella: Patient is status post ileostomy. He completed a course of treatment with antibiotics. -Stable from a GI standpoint -Continue to monitor Risk for protein calorie malnutrition Weight loss secondary to poor po intake -Consult lay out carpenter - Ensure Enlive TID -monitor weights Rheumatoid arthritis, chronic, stable -Continue hydroxychloroquine Hyperlipidemia -Continue statin GI prophylaxis: PPI. Stool softener PRN constipation. DVT PPx: Heparin Discharge Planning: Not ready for discharge Progress Note: Quality VTE Deep Vein Thrombosis/Pulmonary Embolism Present on Admission: No
[2018-10-26] MEDS ORDERED: Pharmacy Ordered Lab Info OTHER ONE (16:45)
[2018-10-26] MEDS: Vancomycin Inj 1,250 MG in Sodium Chlor 0.9% Inj 250 ML IV.SIG SCH (16:51)
[2018-10-26] MEDS ORDERED: Acetaminophen 325 MG Tablet PO PRN (16:56)
[2018-10-26] MEDS ORDERED: Meloxicam 15 MG Tablet PO SCH (18:00)
[2018-10-27] MEDS: HYDROmorphone PF Inj 0.5 MG/0.5 ML Syringe IV.PUSH PRN (02:05)
[2018-10-27] MEDS: LORazepam 1 MG Tablet PO PRN (03:07)
[2018-10-27] MEDS: HYDROmorphone PCA Inj 6 MG/30 ML PCA.VIAL PCA PRN ×3 (03:17→22:17)
[2018-10-27] MEDS: Sod Chloride 0.9% Inj 1,000 ML IV.CONT SCH ×4 (05:32→23:58)
[2018-10-27] MEDS: Folic Acid 1 MG Tablet PO SCH (09:51)
[2018-10-27] MEDS: Hydroxychloroquine 200 MG Tablet PO SCH ×2 (09:51→21:55)
[2018-10-27] MEDS: Lactobacillus Acidophilus/L. Spores Tablet PO SCH ×3 (09:51→18:15)
[2018-10-27] MEDS: Magnesium Oxide 400 MG Tablet PO SCH (09:51)
[2018-10-27] MEDS: Senna/Docusate Sodium 8.6/50 MG Tablet PO SCH ×2 (09:52→23:02)
[2018-10-27 09:57] LABS: Baso % (Auto) 0.4 % (0.0-2.0); Eos # (Auto) 0.1 th/mm3 (0.0-0.4); Eos % (Auto) 0.8 % (0.0-4.0); Hematocrit 24.1 % (39.0-51.0); Hemoglobin 8.2 gm/dL (13.0-17.0); Lymph # (Auto) 1.2 th/mm3 (1.0-4.8); Lymph % (Auto) 14.2 % (9.0-44.0); Mean Corpuscular Hemoglobin 32.2 pg (27.0-34.0); Mean Corpuscular Volume 94.8 fL (80.0-100.0); Mono # (Auto) 0.8 th/mm3 (0.0-0.9); Neut # (Auto) 6.3 th/mm3 (1.8-7.7); Neut % (Auto) 74.6 % (16.0-70.0); Platelet Count 254 th/mm3 (150-450); Red Blood Count 2.55 mil/mm3 (4.50-5.90); Red Cell Distribution Width 17.1 % (11.6-17.2); White Blood Count 8.5 th/mm3 (4.0-11.0)
[2018-10-27 10:23] LABS: Calcium 8.4 mg/dL (8.5-10.1); Carbon Dioxide 24.7 meq/L (21.0-32.0); Potassium 3.7 meq/L (3.5-5.1)
--- NOTE | 2018-10-27 12:32 | P.PNVS ---
Subjective Subjective/Hospital Course: 68-year-old male known to me from previous encounters for left colon perforation. Patient now with cellulitis and edema of the right foot Patient has stigmata of coronary artery disease vascular disease and cardiovascular degenerative changes. Full workup is in progress CTA with runoff ordered We will continue to follow Full consult dictated Thanks Misael 10/25/2018 The patient has palpable bilateral femoral pulses weaker right than left. Dopplerable popliteal pulses. Right dorsalis pedis and posterior tibial arteries are present and Doppler +1 and on the left side both vessels are present and Doppler +2. The difference is probably due to the swelling of the right foot more so than any decrease to the blood flow in the foot area. Based on this exam patient probably has some degree of proximal disease in the iliac arteries and then likely either occlusion or stenosis of both SFAs. Clinically blood flow to the right leg is more compromised than to the left leg and this would be more of a regular pattern then diabetic pattern but we will see what CTA with runoff shows. I have examined the patient in the office and then in the hospital. Right foot indeed is swollen, mainly in the midfoot area with dorsum of the foot more prominently, edematous, rubor extending from the metatarsophalangeal area all the way up to the ankle. The patient has abrasion on the side of the foot as well as tiny ulcer on the fifth toe. CTA with runoff confirms the above picture somewhat. Patient has fairly tight right iliac stenosis common femoral artery stenosis and then Rady nearly occluded SFA on the right. Popliteal is patent however only just above the trifurcation Beyond trifurcation patient has runoff and vessels are sclerotic. Based on all of the above patient will need right inflow and outflow reconstruction with combination of stents and bypass. Will take patient to the operating room in next 24-48 hours. 10/26/2018 Status post Right external iliac and common femoral endarterectomy and bovine patch angioplasty Right femoral to distal bypass with in situ saphenous vein Right popliteal endarterectomy Right popliteal and distal catheter suction penumbra embolectomy Arteriogram x4 Incisions are clean and dry and patient has a bounding pulse in the saphenous vein graft Excellent posterior tibial and dorsalis pedis pulses and foot is nice and warm Patient can transfer to floor DC heparin start on Eliquis DC [place] DC IV fluids 10/27/2018 Incisions are clean and dry Patient is excellent distal dopplerable pulses and palpable pulse in the saphenous vein in situ graft Should remain on Eliquis Patient was transferred from ICU to medical floor and should definitely be on the surgical floor. I have discussed this with bed placement and nursing office and requested transfer to surgical floor From my point patient can be discharged anytime if okay with infectious disease specialist Follow-up with me in about 2-3 weeks Objective Vital Signs / I&O: Vital Signs 10/26/18 13:00 10/26/18 13:30 10/26/18 14:00 Temperature Pulse Rate 90 103 H 95 H Respiratory Rate 20 45 H 27 H Blood Pressure 115/58 L 143/67 H 128/59 L Pulse Oximetry 10/26/18 15:00 10/26/18 16:00 10/26/18 16:25 Temperature 100 F H Pulse Rate 96 H 108 H 98 H Respiratory Rate 23 26 H 26 H Blood Pressure 129/60 Pulse Oximetry 10/26/18 16:50 10/26/18 17:00 10/26/18 18:00 Temperature 100.8 F H 100.2 F H Pulse Rate 101 H 92 H Respiratory Rate 18 25 H 26 H Blood Pressure Pulse Oximetry 10/26/18 19:47 10/26/18 20:00 10/27/18 00:00 Temperature 99.3 F 98.6 F Pulse Rate 93 H 87 Respiratory Rate 22 22 18 Blood Pressure 116/56 L 135/64 Pulse Oximetry 99 94 L 10/27/18 04:00 10/27/18 07:35 Temperature 98.9 F 99 F Pulse Rate 92 H 93 H Respiratory Rate 18 18 Blood Pressure 127/58 L 133/61 Pulse Oximetry 97 96 Intake & Output 10/26/18 10/27/18 10/27/18 18:59 06:59 18:59 Intake Total 1512.5 / 1512.5 720 / 720 Output Total 1905 / 1905 550 / 550 Balance -392.5 / -392.5 170 / 170 Weight 80.2 kg Intake: IV 872.5 / 872.5 Heparin/D5W 25,000 U/250 mL 25, 160 / 160 000 unit In 250 ml @ Per Protocol IV.CONT TITRATE PRN Rx #:[id number] NS Inj 1,000 ML @ 100 mls/hr IV 200 / 200 .CONT .Q10H [facility] Rx#:[id number] Vancomycin Inj 1,250 MG In NS 262.5 / 262.5 Inj 250 ML @ 262.5 mls/hr IV. SIG Q24H [facility] Rx#:[id number] Oral 640 / 640 720 / 720 Output: Urine 400 / 400 Estimated Blood Loss 75 / 75 Urine Amount (Catheter) 1450 / 1450 Indwelling Urethral Catheter 1450 / 1450 Stool Amount (Stoma) 380 / 380 150 / 150 Right Lower Abdomen 380 / 380 150 / 150 Other: # Voids 400 Date of Last Bowel Movement 10/26/18 10/26/18 Laboratory Results - last 24 hr 10/25/18 10/26/18 10/27/18 11:20 16:20 08:59 WBC RBC Hgb Hct MCV MCH MCHC RDW Plt Count MPV Neut % (Auto) Lymph % (Auto) Imperial % (Auto) Eos % (Auto) Baso % (Auto) Neut # (Auto) Lymph # (Auto) Imperial # (Auto) Eos # (Auto) Baso # (Auto) WBC Differential Differential Comment Sodium 139 Potassium 3.7 Chloride 107 Carbon Dioxide 24.7 Anion Gap 7 BUN 14 Creatinine 0.97 Estimated GFR 77 L Random Glucose 80 Calcium 8.4 L Vancomycin Trough 11.9 H Blood Type A Positive Antibody Screen Negative MTS Gel Crossmatch See Detail 10/27/18 08:59 WBC 8.5 RBC 2.55 L Hgb 8.2 L Hct 24.1 L MCV 94.8 MCH 32.2 MCHC 34.0 RDW 17.1 Plt Count 254 MPV 7.0 Neut % (Auto) 74.6 H Lymph % (Auto) 14.2 Imperial % (Auto) 10.0 H Eos % (Auto) 0.8 Baso % (Auto) 0.4 Neut # (Auto) 6.3 Lymph # (Auto) 1.2 Imperial # (Auto) 0.8 Eos # (Auto) 0.1 Baso # (Auto) 0.0 WBC Differential . Differential Comment Auto diff final Sodium Potassium Chloride Carbon Dioxide Anion Gap BUN Creatinine Estimated GFR Random Glucose Calcium Vancomycin Trough Blood Type Antibody Screen MTS Gel Crossmatch Microbiology 10/23/18 14:30 Aerobic Blood Culture - Preliminary Blood - Peripheral No growth in 4 days Anaerobic Blood Culture - Preliminary No growth in 4 days 10/23/18 14:36 Aerobic Blood Culture - Preliminary Blood - Peripheral No growth in 4 days Anaerobic Blood Culture - Preliminary No growth in 4 days
[2018-10-27] MEDS: Ketorolac Inj 30 MG/ML (IVP) Vial IV.PUSH SCH ×2 (16:19→21:57)
[2018-10-27] MEDS: Ascorbic Acid 500 MG Tablet PO SCH (16:20)
--- NOTE | 2018-10-27 16:22 | P.PNIM ---
Subjective Interval history: 68-year-old white male admitted with right foot cellulitis and gangrene due to severe peripheral vascular disease found to have ischemic right foot with occlusion of right external iliac and common femoral artery with superficial femoral artery occlusion popliteal occlusion with proximal occlusion with distal severe stenosis status post right external iliac and common femoral endarterectomy patch angioplasty, right femoral to distal bypass with in situ saphenous vein and right popliteal endarterectomy 10/26/2018 Patient seen and examined, still having significant pain in right leg, denies shortness of breath, no nausea vomiting, complaining of pain in joints and shoulder as well Physical Exam Vital signs: Vital Signs 10/26/18 16:25 10/26/18 16:50 10/26/18 17:00 Temperature 100.8 F H Pulse Rate 98 H 101 H Respiratory Rate 26 H 18 25 H Blood Pressure 129/60 Pulse Oximetry 10/26/18 18:00 10/26/18 19:47 10/26/18 20:00 Temperature 100.2 F H 99.3 F Pulse Rate 92 H 93 H Respiratory Rate 26 H 22 22 Blood Pressure 116/56 L Pulse Oximetry 99 10/27/18 00:00 10/27/18 04:00 10/27/18 07:35 Temperature 98.6 F 98.9 F 99 F Pulse Rate 87 92 H 93 H Respiratory Rate 18 18 18 Blood Pressure 135/64 127/58 L 133/61 Pulse Oximetry 94 L 97 96 10/27/18 11:30 Temperature 98.7 F Pulse Rate 90 Respiratory Rate 18 Blood Pressure 109/60 Pulse Oximetry 97 Intake & Output 10/26/18 10/27/18 10/27/18 18:59 06:59 18:59 Intake Total 1512.5 / 1512.5 720 / 720 Output Total 1905 / 1905 550 / 550 Balance -392.5 / -392.5 170 / 170 Weight 80.2 kg Intake: IV 872.5 / 872.5 Heparin/D5W 25,000 U/250 mL 25, 160 / 160 000 unit In 250 ml @ Per Protocol IV.CONT TITRATE PRN Rx #:[id number] NS Inj 1,000 ML @ 100 mls/hr IV 200 / 200 .CONT .Q10H [facility] Rx#:[id number] Vancomycin Inj 1,250 MG In NS 262.5 / 262.5 Inj 250 ML @ 262.5 mls/hr IV. SIG Q24H [facility] Rx#:[id number] Oral 640 / 640 720 / 720 Output: Urine 400 / 400 Estimated Blood Loss 75 / 75 Urine Amount (Catheter) 1450 / 1450 Indwelling Urethral Catheter 1450 / 1450 Stool Amount (Stoma) 380 / 380 150 / 150 Right Lower Abdomen 380 / 380 150 / 150 Other: # Voids 400 Date of Last Bowel Movement 10/26/18 10/26/18 Narrative: Pleasant well-developed well-nourished 68-year-old white male Awake alert oriented stress Heart S1-S2 regular Lungs clear bilateral no wheeze or rhonchi Abdomen soft nondistended positive ostomy bag in place Extremities right lower extremity incisions up to groin without erythema mild edema, distal foot with ulceration and surrounding erythema no purulence +1 edema, tenderness Urinary Catheter Management Indwelling Urethral Catheter: Cath placed during this visit: yes, but has since been removed by the nurse Reason for continuing: Decision to DC catheter Insertion date: 10/25/18 Insertion time: 13:18 Removal date: 10/26/18 Removal time: 15:30 Results Labs CBC & Chem 7: 10/27/18 08:59 10/27/18 08:59 Labs: Microbiology 10/23/18 14:30 Blood - Peripheral Aerobic Blood Culture - Preliminary No growth in 4 days 10/23/18 14:30 Blood - Peripheral Anaerobic Blood Culture - Preliminary No growth in 4 days 10/23/18 14:36 Blood - Peripheral Aerobic Blood Culture - Preliminary No growth in 4 days 10/23/18 14:36 Blood - Peripheral Anaerobic Blood Culture - Preliminary No growth in 4 days Assessment and Plan Plan SIRS resolved CELLULITIS R FOOT w ACUTE R LIMB ISCHEMIA - would cont abx for another few days , as patient is immunosuppressed and has such severe ischemia high risk on infection, cont wound care. PVD severe right external iliac, common femoral artery superficial artery popliteal artery occlusion with distal severe stenosis status post right external iliac and common femoral endarterectomy patch angioplasty, right femoral to distal bypass with in situ saphenous vein and a right popliteal endarterectomy10/26/18. 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 Progress Note: Quality VTE Deep Vein Thrombosis/Pulmonary Embolism Present on Admission: No
[2018-10-27] MEDS: Multivitamin Hematinic Therapeutic Tablet PO SCH (16:30)
[2018-10-27] MEDS: Vancomycin Inj 1,250 MG in Sodium Chlor 0.9% Inj 250 ML IV.SIG SCH (18:12)
[2018-10-27] MEDS: Gabapentin 100 MG Capsule PO SCH (18:15)
--- NOTE | 2018-10-27 19:57 | P.PNIM ---
Subjective Interval history: Not seen follow-up right foot cellulitis and gangrene Physical Exam Vital signs: Vital Signs 10/26/18 20:00 10/27/18 00:00 10/27/18 04:00 Temperature 99.3 F 98.6 F 98.9 F Pulse Rate 93 H 87 92 H Respiratory Rate 22 18 18 Blood Pressure 116/56 L 135/64 127/58 L Pulse Oximetry 99 94 L 97 10/27/18 07:35 10/27/18 11:30 10/27/18 15:20 Temperature 99 F 98.7 F 98.2 F Pulse Rate 93 H 90 85 Respiratory Rate 18 18 18 Blood Pressure 133/61 109/60 113/56 L Pulse Oximetry 96 97 96 10/27/18 16:00 Temperature 98.4 F Pulse Rate 85 Respiratory Rate 20 Blood Pressure 124/57 L Pulse Oximetry 98 Intake & Output 10/27/18 10/27/18 10/28/18 06:59 18:59 06:59 Intake Total 720 / 720 1520 / 1520 Output Total 550 / 550 1425 / 1425 Balance 170 / 170 95 / 95 Weight 80.2 kg Intake: IV 800 / 800 NS Inj 1,000 ML @ 100 mls/hr IV 800 / 800 .CONT .Q10H [facility] Rx#:[id number] Oral 720 / 720 720 / 720 Output: Urine 400 / 400 900 / 900 Stool Amount (Stoma) 150 / 150 525 / 525 Right Lower Abdomen 150 / 150 525 / 525 Other: # Voids 400 0 Date of Last Bowel Movement 10/26/18 10/27/18 Narrative: Pleasant well-developed well-nourished 68-year-old white male Awake alert oriented stress Heart S1-S2 regular Lungs clear bilateral no wheeze or rhonchi Abdomen soft nondistended positive ostomy bag in place Extremities right lower extremity incisions up to groin without erythema mild edema, distal foot with ulceration and surrounding erythema no purulence +1 edema, tenderness Urinary Catheter Management Indwelling Urethral Catheter: Cath placed during this visit: yes, but has since been removed by the nurse Reason for continuing: Decision to DC catheter Insertion date: 10/25/18 Insertion time: 13:18 Removal date: 10/26/18 Removal time: 15:30 Results Labs CBC & Chem 7: 10/27/18 08:59 10/27/18 08:59 Labs: Microbiology 10/23/18 14:30 Blood - Peripheral Aerobic Blood Culture - Preliminary No growth in 4 days 10/23/18 14:30 Blood - Peripheral Anaerobic Blood Culture - Preliminary No growth in 4 days 10/23/18 14:36 Blood - Peripheral Aerobic Blood Culture - Preliminary No growth in 4 days 10/23/18 14:36 Blood - Peripheral Anaerobic Blood Culture - Preliminary No growth in 4 days Imaging Imaging: ITS Impressions Venous Doppler Study 10/23/18 00:00 CONCLUSION: 1. The study is negative for lower extremity deep venous thrombosis. Foot X-Ray 10/23/18 15:33 CONCLUSION: No bone loss is identified. No foreign body identified. Lumbar Spine X-Ray 10/24/18 00:00 CONCLUSION: 1. Age-indeterminate compression deformity involving L3. 10-20% loss of height. 2. Degenerative changes most pronounced at L4-L5. Aorta w/Runoff CTA 10/24/18 13:00 OTHER STRUCTURES: Emphysematous changes within the lung bases. 8 mm nodule within the left lower lobe. Small calcified gallstones within an unremarkable gallbladder. Small nonobstructing renal calculi bilaterally measuring 2 mm. A right lower quadrant ileostomy. A near complete colectomy. Degenerative and scoliotic spine. CONCLUSION: 1. Significant stenosis at the junction of the right external iliac artery and common femoral artery. The rest of the inflow is patent. 2. Both lower extremities show multilevel SFA and popliteal disease including short segment occlusions. Runoff to the feet are via diffusely but mildly diseased trifurcation vessels. 3. 8mm left lower lobe pulmonary nodule. Consider a follow-up CT the chest in 6 months. 4. Cholelithiasis. Procedures Procedures: right external iliac and common femoral endarterectomy patch angioplasty, right femoral to distal bypass with in situ saphenous vein and a right popliteal endarterectomy 10/26/18 Assessment and Plan Plan SEPSIS resolved CELLULITIS R FOOT w ACUTE R LIMB ISCHEMIA - would cont abx for another few days , as patient is immunosuppressed and has such severe ischemia high risk on infection, cont wound care. PVD severe right external iliac, common femoral artery superficial artery popliteal artery occlusion with distal severe stenosis status post right external iliac and common femoral endarterectomy patch angioplasty, right femoral to distal bypass with in situ saphenous vein and a right popliteal endarterectomy10/26/18. 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 Progress Note: Quality VTE Deep Vein Thrombosis/Pulmonary Embolism Present on Admission: No
[2018-10-27] MEDS: Calcium/Vitamin D 250/125 MG Tablet PO SCH (21:53)
[2018-10-27] MEDS: Polysaccharide Iron Complex 150 MG Capsule PO SCH (21:53)
[2018-10-28] MEDS: Ketorolac Inj 30 MG/ML (IVP) Vial IV.PUSH SCH ×3 (07:45→22:16)
[2018-10-28] MEDS: Sod Chloride 0.9% Inj 1,000 ML IV.CONT SCH (07:56)
[2018-10-28] MEDS: Magnesium Oxide 400 MG Tablet PO SCH (09:32)
[2018-10-28] MEDS: Polysaccharide Iron Complex 150 MG Capsule PO SCH ×2 (09:32→22:14)
[2018-10-28] MEDS: Calcium/Vitamin D 250/125 MG Tablet PO SCH ×2 (09:33→22:15)
[2018-10-28] MEDS: Hydroxychloroquine 200 MG Tablet PO SCH ×2 (09:33→22:28)
[2018-10-28] MEDS: Ascorbic Acid 500 MG Tablet PO SCH (09:33)
[2018-10-28] MEDS: Lactobacillus Acidophilus/L. Spores Tablet PO SCH ×3 (09:34→18:02)
[2018-10-28] MEDS: Multivitamin Hematinic Therapeutic Tablet PO SCH (09:34)
[2018-10-28] MEDS: Gabapentin 100 MG Capsule PO SCH ×3 (09:34→18:02)
[2018-10-28] MEDS: Folic Acid 1 MG Tablet PO SCH (09:34)
[2018-10-28] MEDS: Senna/Docusate Sodium 8.6/50 MG Tablet PO SCH ×2 (09:34→22:16)
[2018-10-28] MEDS: HYDROmorphone PCA Inj 6 MG/30 ML PCA.VIAL PCA PRN (09:51)
[2018-10-28 10:22] LABS: Hematocrit 24.1 % (39.0-51.0); Hemoglobin 8.5 gm/dL (13.0-17.0)
--- NOTE | 2018-10-28 10:26 | P.PNIM ---
Subjective Interval history: Follow-up cellulitis of the right foot. Complains of right foot pain on Lortab and Dilaudid IV. 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 Discussed with nursing. Awaiting podiatry and PT eval Physical Exam Vital signs: Vital Signs 10/27/18 11:30 10/27/18 15:20 10/27/18 16:00 Temperature 98.7 F 98.2 F 98.4 F Pulse Rate 90 85 85 Respiratory Rate 18 18 20 Blood Pressure 109/60 113/56 L 124/57 L Pulse Oximetry 97 96 98 10/27/18 20:00 10/27/18 20:15 10/27/18 22:01 Temperature 98.0 F Pulse Rate 80 Respiratory Rate 16 18 18 Blood Pressure 131/63 Pulse Oximetry 100 10/27/18 23:50 10/28/18 03:45 10/28/18 04:40 Temperature 98.7 F 98.2 F Pulse Rate 80 83 Respiratory Rate 18 16 18 Blood Pressure 100/51 L 123/61 Pulse Oximetry 97 96 10/28/18 07:15 Temperature 98.8 F Pulse Rate 85 Respiratory Rate 16 Blood Pressure 104/55 L Pulse Oximetry 95 Intake & Output 10/27/18 10/28/18 10/28/18 18:59 06:59 18:59 Intake Total 1520 / 1520 240 / 240 262.5 / 262.5 Output Total 1425 / 1425 600 / 600 Balance 95 / 95 -360 / -360 262.5 / 262.5 Weight 73.2 kg Intake: IV 800 / 800 262.5 / 262.5 NS Inj 1,000 ML @ 100 mls/hr IV 800 / 800 .CONT .Q10H [facility] Rx#:[id number] Vancomycin Inj 1,250 MG In NS 262.5 / 262.5 Inj 250 ML @ 262.5 mls/hr IV. SIG Q24H [facility] Rx#:[id number] Oral 720 / 720 240 / 240 Output: Urine 900 / 900 600 / 600 Stool Amount (Stoma) 525 / 525 Right Lower Abdomen 525 / 525 Other: # Voids 0 Date of Last Bowel Movement 10/27/18 Narrative: Pleasant well-developed well-nourished 68-year-old white male Awake alert oriented stress Heart S1-S2 regular Lungs clear bilateral no wheeze or rhonchi Abdomen soft nondistended positive ostomy bag in place Extremities right lower extremity incisions up to groin without erythema mild edema, distal foot with dark ulceration and surrounding erythema no purulence + 1 edema, tenderness Urinary Catheter Management Indwelling Urethral Catheter: Cath placed during this visit: yes, but has since been removed by the nurse Reason for continuing: Decision to DC catheter Insertion date: 10/25/18 Insertion time: 13:18 Removal date: 10/26/18 Removal time: 15:30 Results Labs CBC & Chem 7: 10/28/18 09:44 10/27/18 08:59 Labs: Microbiology 10/23/18 14:30 Blood - Peripheral Aerobic Blood Culture - Preliminary No growth in 4 days 10/23/18 14:30 Blood - Peripheral Anaerobic Blood Culture - Preliminary No growth in 4 days 10/23/18 14:36 Blood - Peripheral Aerobic Blood Culture - Preliminary No growth in 4 days 10/23/18 14:36 Blood - Peripheral Anaerobic Blood Culture - Preliminary No growth in 4 days Procedures Procedures: right external iliac and common femoral endarterectomy patch angioplasty, right femoral to distal bypass with in situ saphenous vein and a right popliteal endarterectomy 10/26/18 Assessment and Plan Plan SEPSIS resolved CELLULITIS R FOOT w ACUTE R LIMB ISCHEMIA -per patient, cellulitis is improving would cont abx, as patient is immunosuppressed consider holding Plaquenil and methotrexate and has such severe ischemia high risk on infection, cont wound care, await podiatry eval and ID re-eval. 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 Progress Note: Quality VTE Deep Vein Thrombosis/Pulmonary Embolism Present on Admission: No
--- NOTE | 2018-10-28 14:14 | P.DCO ---
Physical Therapy Order: Evaluate and treat, Improve ambulation and Strength and gait training Home Health Nursing Order: Medical education, Signs/symptoms of disease process, Medication education-adverse effect, Wound care and dressing changes and Nursing assessment with vital signs Case Management Consult Case Management Consult-Home Health: Yes I have seen patient Zach Moreira on 10/28/18. My clinical findings support the need for the requested home health care services because: Limited mobility due to disease progression I certify that my clinical findings support that this patient is homebound because: Unsafe to leave home unassisted
--- NOTE | 2018-10-28 15:35 | P.PNID ---
Subjective Remarks: Mr. Moreira is a 68-year-old male with past medical history significant for rheumatoid arthritis on methotrexate, history of diverticulitis , history of colonic perforation and retroperitoneal abscess status post surgical intervention and diverting ileostomy. Patient grew multiple bacteria during that admission including VRE as well as Sarita glabrata. Patient was treated with oral antibiotics for the bacteria and discharged home on micafungin IV for Sarita glabrata infection using a PICC line. Patient has been following up with Dr. Douglas for the ileostomy. While at his visit he complained of worsening right foot cellulitis and infection which started about 2 weeks prior to this admission. He had bilateral lower extremity swelling which continued to improve to some extent with compression socks but the right ankle swelling persisted. Patient's thinks that the compression socks may have caused undue pressure on the medial aspect of his right ankle leading to the area of ulceration. Due to worsening foot infection including an area of blackening noted on the medial aspect of the right foot. Patient denies any fever or chills but of note patient is immune compromised. Patient did report feeling very fatigued. Patient denies having been told that he has any vascular issues in the past. Overnight events reviewed No fevers No rash No diarrhea Antibiotics: Vanco IV Lines: Lines ok Past Medical History: reviewed Allergies/Adverse Reactions: Allergies No Known Allergies Allergy (Verified 10/23/18 13:46) Objective Vital Signs 10/27/18 16:00 10/27/18 20:00 10/27/18 20:15 Temperature 98.4 F 98.0 F Pulse Rate 85 80 Respiratory Rate 20 16 18 Blood Pressure 124/57 L 131/63 Pulse Oximetry 98 100 10/27/18 22:01 10/27/18 23:50 10/28/18 03:45 Temperature 98.7 F Pulse Rate 80 Respiratory Rate 18 18 16 Blood Pressure 100/51 L Pulse Oximetry 97 10/28/18 04:40 10/28/18 07:15 10/28/18 11:50 Temperature 98.2 F 98.8 F 98.0 F Pulse Rate 83 85 74 Respiratory Rate 18 16 20 Blood Pressure 123/61 104/55 L 105/58 L Pulse Oximetry 96 95 98 Intake & Output 10/27/18 10/28/18 10/28/18 18:59 06:59 18:59 Intake Total 1520 / 1520 240 / 240 722.5 / 722.5 Output Total 1425 / 1425 600 / 600 1525 / 1525 Balance 95 / 95 -360 / -360 -802.5 / -802.5 Weight 73.2 kg Intake: IV 800 / 800 722.5 / 722.5 NS Inj 1,000 ML @ 100 mls/hr IV 800 / 800 460 / 460 .CONT .Q10H [facility] Rx#:[id number] Vancomycin Inj 1,250 MG In NS 262.5 / 262.5 Inj 250 ML @ 262.5 mls/hr IV. SIG Q24H [facility] Rx#:[id number] Oral 720 / 720 240 / 240 Output: Urine 900 / 900 600 / 600 500 / 500 Stool 250 / 250 Stool Amount (Stoma) 525 / 525 775 / 775 Right Lower Abdomen 525 / 525 775 / 775 Other: # Voids 0 2 Date of Last Bowel Movement 10/27/18 10/23/18 14:30 Blood - Peripheral Aerobic Blood Culture - Final No growth in 5 days 10/23/18 14:30 Blood - Peripheral Anaerobic Blood Culture - Final No growth in 5 days 10/23/18 14:36 Blood - Peripheral Aerobic Blood Culture - Final No growth in 5 days 10/23/18 14:36 Blood - Peripheral Anaerobic Blood Culture - Final No growth in 5 days Lab - Hematology Results 10/27/18 10/28/18 08:59 09:44 WBC 8.5 RBC 2.55 L Hgb 8.2 L 8.5 L Hct 24.1 L 24.1 L MCV 94.8 MCH 32.2 MCHC 34.0 RDW 17.1 Plt Count 254 MPV 7.0 Neut % (Auto) 74.6 H Lymph % (Auto) 14.2 [place] % (Auto) 10.0 H Eos % (Auto) 0.8 Baso % (Auto) 0.4 Neut # (Auto) 6.3 Lymph # (Auto) 1.2 [place] # (Auto) 0.8 Eos # (Auto) 0.1 Baso # (Auto) 0.0 WBC Differential . Differential Comment Auto diff final Lab - Chemistry Results 10/27/18 08:59 Sodium 139 Potassium 3.7 Chloride 107 Carbon Dioxide 24.7 Anion Gap 7 BUN 14 Creatinine 0.97 Estimated GFR 77 L Random Glucose 80 Calcium 8.4 L Imaging: ITS Impressions Venous Doppler Study 10/23/18 00:00 CONCLUSION: 1. The study is negative for lower extremity deep venous thrombosis. Foot X-Ray 10/23/18 15:33 CONCLUSION: No bone loss is identified. No foreign body identified. Lumbar Spine X-Ray 10/24/18 00:00 CONCLUSION: 1. Age-indeterminate compression deformity involving L3. 10-20% loss of height. 2. Degenerative changes most pronounced at L4-L5. Aorta w/Runoff CTA 10/24/18 13:00 OTHER STRUCTURES: Emphysematous changes within the lung bases. 8 mm nodule within the left lower lobe. Small calcified gallstones within an unremarkable gallbladder. Small nonobstructing renal calculi bilaterally measuring 2 mm. A right lower quadrant ileostomy. A near complete colectomy. Degenerative and scoliotic spine. CONCLUSION: 1. Significant stenosis at the junction of the right external iliac artery and common femoral artery. The rest of the inflow is patent. 2. Both lower extremities show multilevel SFA and popliteal disease including short segment occlusions. Runoff to the feet are via diffusely but mildly diseased trifurcation vessels. 3. 8mm left lower lobe pulmonary nodule. Consider a follow-up CT the chest in 6 months. 4. Cholelithiasis. Physical Exam: GENERAL: Well-nourished well-developed, not in acute distress SKIN: Cool and dry, no generalized rash HEAD: Atraumatic. Normocephalic. No temporal or scalp tenderness. EYES: Pupils equal round and reactive. Scleral icterus. No injection or drainage. No petechia ENT: Nothing abnormal detected NECK: Trachea midline. Supple, nontender, no meningeal signs. CARDIOVASCULAR: HS audible. RESPIRATORY: Clear to auscultation bilaterally. GASTROINTESTINAL: Abdomen soft nontender. Ileostomy in place. Surgical site intact with no evidence of infection. MUSCULOSKELETAL: Bilateral hand swan-neck deformity, Heberden's nodes noted. Bilateral knee with surgical scars intact with no evidence of infection. Left foot with petechial skin changes noted. Decreased peripheral pulses. Right foot with a 3 x 4 cm area of ulceration with blackening of the skin noted. Dorsalis pedis pulses markedly diminished. NEUROLOGICAL: Alert oriented 3. Nonfocal. Psych cooperative IV line sites ok. Assessment and Plan - Plan Right foot cellulitis Right foot infected ulcer Probable peripheral arterial as well as vascular disease Rheumatoid arthritis on methotrexate Relative immune deficiency Coronary artery disease Bilateral knee with hardware in place prosthetic joints at risk for seeding Recommendations Continue vancomycin IV target trough 10-15. Await Podiatry input. Follow cultures Follow clinical course Plan discussed with patient dw : plan depends on Podiatry input and further plans.
--- NOTE | 2018-10-28 16:34 | IR ---
EXAM DATE: 10/25/2018 10:57 PM EST AGE/SEX: 68 years / Male INDICATIONS: Patient with a history of right leg occlusion. CLINICAL DATA: This is the patient's initial encounter. Patient reports that signs and symptoms have been present for 2 days and indicates a pain score of 9/10. MEDICAL/SURGICAL HISTORY: Renal disease. Arthritis. Vascular disease Hyperlipidemia Right femo ral bypass COMPARISON: No prior exams available for comparison. FLUORO TIME (min): 17.57 IMAGE SERIES: 14 RADIATION DOSE: 2992 DAP ACCESS SITE: Left femoral artery SEDATION TIME (min): 60 CONTRAST (cc): 75 Visipaque (iodixanol) MEDICATION(S): 7mg midazolam (Versed) IV ; 350mcg fentanyl (Sublimaze) IV ; ; ; DEVICE(S): Right popliteal artery CAT6 aspiration ; Right popliteal artery PUBLIC RELATIONS COORDINATOR balloon 5.0 X60mm ; Right poplite al artery PUBLIC RELATIONS COORDINATOR balloon 4.0 X 40mm Left common femoral artery Angio-Seal 6F ; ; ; ; . . PROCEDURE : 1. Ultrasound-guided puncture of the access site. 2. Conscious sedation with continuous EKG and Oximetry monitoring. 3. Angiography of the right lower extremity via the common femoral artery approach 4. Angiography of the popliteal artery and distal runoff via the popliteal approach 5. Embolectomy of the right popliteal artery The risks, benefits and alternatives to the procedure were explained and verbal and written consent w as obtained. The site was prepped in sterile fashion. Full sterile technique was used, including ca p, mask, sterile gloves and gown and a large sterile sheet. Hand hygiene and 2% chlorhexidine and/or betadine/alcohol prep was utilized per protocol for cutaneous antisepsis. Sterile gel and sterile p robe cover were utilized for ultrasound guidance. The skin and subcutaneous tissues were infiltrated with local anesthetic solution. With ultrasound and fluoroscopic guidance the selected artery was punctured and a vascular sheath was placed. An omniflush catheter was placed over the aortic bifurcation into the right common femoral artery whe re runoff of the right lower extremity was performed. This demonstrates a patent bypass graft both pr oximally and distally with occlusion in the popliteal artery distal to the graft. Following systemic heparinization the Indigo device was used to macerate and suction embolectomy of t he thrombus in the popliteal artery. This demonstrated some residual stenosis and angioplasty of the popliteal segment was performed with the prescribed device. Follow-up angiography demonstrates a borden nt vessel with intact three-vessel runoff. The puncture site was closed with manual pressure and hemostasis was obtained. The patient tolerated the procedure well and there were no complications. Conscious sedation was performed with the prescribed dosages and duration as above in the presence of an independent trained radiology nurse to assist in the monitoring of the patient. EKG and oximetry remained stable throughout the procedure. CONCLUSION: 1. Uncomplicated embolectomy and angioplasty of the right popliteal artery. Electronically signed by: Rik Pepper MD Board Certified Radiologist 10/28/2018 4:32 PM EST
[2018-10-28] MEDS: Vancomycin Inj 1,250 MG in Sodium Chlor 0.9% Inj 250 ML IV.SIG SCH (17:00)
--- NOTE | 2018-10-28 17:17 | P.PNVS ---
Subjective Subjective/Hospital Course: 68-year-old male known to me from previous encounters for left colon perforation. Patient now with cellulitis and edema of the right foot Patient has stigmata of coronary artery disease vascular disease and cardiovascular degenerative changes. Full workup is in progress CTA with runoff ordered We will continue to follow Full consult dictated Thanks Misael 10/25/2018 The patient has palpable bilateral femoral pulses weaker right than left. Dopplerable popliteal pulses. Right dorsalis pedis and posterior tibial arteries are present and Doppler +1 and on the left side both vessels are present and Doppler +2. The difference is probably due to the swelling of the right foot more so than any decrease to the blood flow in the foot area. Based on this exam patient probably has some degree of proximal disease in the iliac arteries and then likely either occlusion or stenosis of both SFAs. Clinically blood flow to the right leg is more compromised than to the left leg and this would be more of a regular pattern then diabetic pattern but we will see what CTA with runoff shows. I have examined the patient in the office and then in the hospital. Right foot indeed is swollen, mainly in the midfoot area with dorsum of the foot more prominently, edematous, rubor extending from the metatarsophalangeal area all the way up to the ankle. The patient has abrasion on the side of the foot as well as tiny ulcer on the fifth toe. CTA with runoff confirms the above picture somewhat. Patient has fairly tight right iliac stenosis common femoral artery stenosis and then Rady nearly occluded SFA on the right. Popliteal is patent however only just above the trifurcation Beyond trifurcation patient has runoff and vessels are sclerotic. Based on all of the above patient will need right inflow and outflow reconstruction with combination of stents and bypass. Will take patient to the operating room in next 24-48 hours. 10/26/2018 Status post Right external iliac and common femoral endarterectomy and bovine patch angioplasty Right femoral to distal bypass with in situ saphenous vein Right popliteal endarterectomy Right popliteal and distal catheter suction penumbra embolectomy Arteriogram x4 Incisions are clean and dry and patient has a bounding pulse in the saphenous vein graft Excellent posterior tibial and dorsalis pedis pulses and foot is nice and warm Patient can transfer to floor DC heparin start on Eliquis DC [place] DC IV fluids 10/27/2018 Incisions are clean and dry Patient is excellent distal dopplerable pulses and palpable pulse in the saphenous vein in situ graft Should remain on Eliquis Patient was transferred from ICU to medical floor and should definitely be on the surgical floor. I have discussed this with bed placement and nursing office and requested transfer to surgical floor From my point patient can be discharged anytime if okay with infectious disease specialist Follow-up with me in about 2-3 weeks 10/28/2018 Doing very well Excellent flow in the in situ graft Strong +2 dorsalis pedis posterior tibial pulses Incisions are clean and dry Patient doing very well at this time Nothing to add to care from vascular point Objective Vital Signs / I&O: Vital Signs 10/27/18 20:00 10/27/18 20:15 10/27/18 22:01 Temperature 98.0 F Pulse Rate 80 Respiratory Rate 16 18 18 Blood Pressure 131/63 Pulse Oximetry 100 10/27/18 23:50 10/28/18 03:45 10/28/18 04:40 Temperature 98.7 F 98.2 F Pulse Rate 80 83 Respiratory Rate 18 16 18 Blood Pressure 100/51 L 123/61 Pulse Oximetry 97 96 10/28/18 07:15 10/28/18 11:50 10/28/18 16:35 Temperature 98.8 F 98.0 F 98.1 F Pulse Rate 85 74 77 Respiratory Rate 16 20 20 Blood Pressure 104/55 L 105/58 L 143/70 H Pulse Oximetry 95 98 99 Intake & Output 10/27/18 10/28/18 10/28/18 18:59 06:59 18:59 Intake Total 1520 / 1520 240 / 240 722.5 / 722.5 Output Total 1425 / 1425 600 / 600 1525 / 1525 Balance 95 / 95 -360 / -360 -802.5 / -802.5 Weight 73.2 kg Intake: IV 800 / 800 722.5 / 722.5 NS Inj 1,000 ML @ 100 mls/hr IV 800 / 800 460 / 460 .CONT .Q10H [facility] Rx#:[id number] Vancomycin Inj 1,250 MG In NS 262.5 / 262.5 Inj 250 ML @ 262.5 mls/hr IV. SIG Q24H [facility] Rx#:[id number] Oral 720 / 720 240 / 240 Output: Urine 900 / 900 600 / 600 500 / 500 Stool 250 / 250 Stool Amount (Stoma) 525 / 525 775 / 775 Right Lower Abdomen 525 / 525 775 / 775 Other: # Voids 0 2 Date of Last Bowel Movement 10/27/18 Laboratory Results - last 24 hr 10/25/18 10/28/18 11:20 09:44 Hgb 8.5 L Hct 24.1 L Blood Type A Positive Antibody Screen Negative MTS Gel Crossmatch See Detail Microbiology 10/23/18 14:30 Aerobic Blood Culture - Final Blood - Peripheral No growth in 5 days Anaerobic Blood Culture - Final No growth in 5 days 10/23/18 14:36 Aerobic Blood Culture - Final Blood - Peripheral No growth in 5 days Anaerobic Blood Culture - Final No growth in 5 days Impressions Lower Extremity Angiography 10/25/18 19:32 CONCLUSION: 1. Uncomplicated embolectomy and angioplasty of the right popliteal artery.
[2018-10-28] MEDS: HYDROmorphone PF Inj 0.5 MG/0.5 ML Syringe IV.PUSH PRN ×2 (18:02→21:28)
--- NOTE | 2018-10-28 20:32 | P.CON ---
History of Present Illness Service: Foot and ankle surgery/podiatry Consult date: 10/28/18 Reason for Consult: Right foot ulcers Primary Care Provider: UNKNOWN Chief Complaint: Right foot infection History of Present Illness: Podiatry consulted for this 68-year-old male with recent history of colonic perforation and retroperitoneal abscess who is status post intervention, patient is also status post vascular intervention for right foot ulcerations. Patient denies any nausea vomiting fevers or chills. He does report right foot pain. He states he had seen a records management coordinator who was performing some local wound care consisting of diaper rash cream. Review of Systems Reports right leg pain status post vascular intervention. Denies any nausea vomiting fevers or chills. Denies any shortness of breath or chest pain. PMFSH - History History Provided By: Patient - Medical History Medical History: Medical History (Last Reviewed 10/28/18 @ 10:27 by Lily Esteban) CAD (coronary artery disease) Gastroesophageal reflux disease 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 Hyperlipidemia Hypertension Kidney stones Methotrexate, ferry terminal agent, current use Rheumatoid arthritis Steroid long-term use - Surgical History Surgical History: Surgical History (Last Reviewed 10/28/18 @ 10:27 by Lily Esteban) H/O heart artery stent H/O hernia repair H/O knee surgery H/O shoulder surgery Hx of CABG Ileostomy present - Family History Family History: Family History (Last Reviewed 10/23/18 @ 16:55 by Deidre Dixon MD) Other Osteoarthritis - Tobacco History Second Hand Smoke Exposure: No Smoking Status: Former smoker Tobacco Type: Cigarettes - Alcohol History How Often Do You Have a Drink Containing Alcohol: Never - Substance Use History Substance History: No History of Abuse - Travel History Recent Travel in the [place] Within the Last 8 Weeks: No Recent Travel Out of the Country Within the Last 8 Weeks: No - Immunization History Tetanus Immunization: >5 Years Hx Influenza Vaccine This Season: Yes Medications and Allergies Active Medications: Active Medications Acetaminophen (Tylenol) 650 mg PO Q6H PRN PRN Reason: FOR FEVER 101 AND HIGHER Hydrocodone Bitart/Acetaminophen ([place] 10/325) 1 tab PO Q6H PRN PRN Reason: PAIN 1-10 Last Admin: 10/28/18 16:53 Dose: 1 tab Apixaban (Eliquis) 5 mg PO BID [facility] Last Admin: 10/28/18 09:34 Dose: 5 mg Ascorbic Acid (Vitamin C) 1,000 mg PO DAILY PENDING SALE TO [facility] Last Admin: 10/28/18 09:33 Dose: 1,000 mg Aspirin (Ecotrin) 81 mg PO HS PENDING SALE TO [facility] Last Admin: 10/27/18 21:52 Dose: 81 mg Atorvastatin Calcium (Lipitor) 40 mg PO HS PENDING SALE TO [facility] Last Admin: 10/27/18 21:52 Dose: 40 mg Calcium/Vitamin D (Oscal With D 250/125 Mg) 2 tab PO BID PENDING SALE TO [facility] Last Admin: 10/28/18 09:33 Dose: 2 tab Cyclobenzaprine HCl (Flexeril) 10 mg PO Q8H PRN PRN Reason: spasm, pain Folic Acid (Folic Acid) 1 mg PO DAILY PENDING SALE TO [facility] Last Admin: 10/28/18 09:34 Dose: 1 mg Gabapentin (Neurontin) 100 mg PO TID PENDING SALE TO [facility] Last Admin: 10/28/18 18:02 Dose: 100 mg Hydromorphone HCl (Dilaudid Pf Inj) 0.5 mg IV.PUSH Q4H PRN PRN Reason: BREAKTHROUGH PAIN Last Admin: 10/28/18 18:02 Dose: 0.5 mg Hydroxychloroquine Sulfate (Plaquenil) 200 mg PO BID PENDING SALE TO [facility] Last Admin: 10/28/18 09:33 Dose: 200 mg Pharmacy Profile Note (Vancomycin Consult Pharmacy) 0 mls @ 0 mls/hr OTHER UNSCH PENDING SALE TO [facility] Vancomycin HCl 1,250 mg/ (Sodium Chloride) 262.5 mls @ 262.5 mls/hr IV.SIG Q24H PENDING SALE TO [facility] Last Infusion: 10/28/18 19:16 Dose: Infused Ketorolac Tromethamine (Toradol Inj) 30 mg IV.PUSH Q8H PENDING SALE TO [facility] Stop: 10/30/18 06:00 Last Admin: 10/28/18 13:21 Dose: 30 mg Lactobacillus Acidophilus (Lactinex) 1 tab PO TID PENDING SALE TO [facility] Last Admin: 10/28/18 18:02 Dose: 1 tab Lorazepam (Ativan) 1 mg PO Q6H PRN PRN Reason: ANXIETY Last Admin: 10/27/18 03:07 Dose: 1 mg Magnesium Oxide (Mag-Ox) 400 mg PO DAILY PENDING SALE TO [facility] Last Admin: 10/28/18 09:32 Dose: 400 mg Meloxicam (Mobic) 15 mg PO DAILY@1800 PENDING SALE TO [facility] Last Admin: 10/26/18 17:06 Dose: 15 mg Methotrexate (Rheumatrex) 20 mg PO Q7D PENDING SALE TO [facility] Last Admin: 10/28/18 09:34 Dose: 20 mg Mupirocin (Bactroban 2% Oint) 1 applicatio TOPICAL BID PENDING SALE TO [facility] Last Admin: 10/28/18 09:34 Dose: 1 applicatio Naloxone HCl (Narcan Inj) 0.4 mg IV.PUSH PRN PRN PRN Reason: SEE LABEL COMMENTS Ondansetron HCl (Zofran Odt) 4 mg PO Q6H PRN PRN Reason: nausea and vomiting Last Admin: 10/27/18 21:55 Dose: 4 mg Pantoprazole Sodium (Protonix) 40 mg PO DAILY PENDING SALE TO [facility] Last Admin: 10/28/18 09:32 Dose: 40 mg Polysaccharide Iron Complex (Nu-Iron) 150 mg PO BID PENDING SALE TO [facility] Last Admin: 10/28/18 09:32 Dose: 150 mg Senna/Docusate Sodium (Avril-Colace) 1 tab PO BID PENDING SALE TO [facility] Last Admin: 10/28/18 09:34 Dose: Not Given Sodium Chloride (Ns Flush) 2 ml IV.FLUSH BID PENDING SALE TO [facility] Last Admin: 10/28/18 09:34 Dose: Not Given Sodium Chloride (Ns Flush) 2 ml IV.FLUSH PRN PRN PRN Reason: FLUSH AFTER USING IV ACCESS Zinc Sulfate (Zinc-220) 220 mg PO DAILY PENDING SALE TO [facility] Last Admin: 10/28/18 09:34 Dose: 220 mg Allergies Allergy/AdvReac Type Severity Reaction Status Date / Time No Known Allergies Allergy Verified 10/23/18 13:46 Home Medications Medication Instructions Recorded Confirmed Type aspirin [Aspir-Low] 81 mg PO HS 07/22/18 10/23/18 History folic acid 1 mg PO DAILY 07/22/18 10/23/18 History hydrocodone-acetaminophen 1 tab PO Q6H PRN 07/22/18 10/23/18 History hydroxychloroquine 200 mg PO BID 07/22/18 10/23/18 History magnesium 500 mg PO QAM 07/22/18 10/23/18 History meloxicam 15 mg PO QPM 07/22/18 10/23/18 History methotrexate sodium 8 mg PO QWEEK 07/22/18 10/23/18 History Physical Exam Vital signs: Vital Signs 10/27/18 22:01 10/27/18 23:50 10/28/18 03:45 Temperature 98.7 F Pulse Rate 80 Respiratory Rate 18 18 16 Blood Pressure 100/51 L Pulse Oximetry 97 10/28/18 04:40 10/28/18 07:15 10/28/18 11:50 Temperature 98.2 F 98.8 F 98.0 F Pulse Rate 83 85 74 Respiratory Rate 18 16 20 Blood Pressure 123/61 104/55 L 105/58 L Pulse Oximetry 96 95 98 10/28/18 16:35 Temperature 98.1 F Pulse Rate 77 Respiratory Rate 20 Blood Pressure 143/70 H Pulse Oximetry 99 Intake & Output 10/28/18 10/28/18 10/29/18 06:59 18:59 06:59 Intake Total 240 / 240 722.5 / 722.5 262.5 / 262.5 Output Total 600 / 600 1775 / 1775 Balance -360 / -360 -1052.5 / -1052.5 262.5 / 262.5 Weight 73.2 kg Intake: IV 722.5 / 722.5 262.5 / 262.5 NS Inj 1,000 ML @ 100 mls/hr IV 460 / 460 .CONT .Q10H [facility] Rx#:[id number] Vancomycin Inj 1,250 MG In NS 262.5 / 262.5 262.5 / 262.5 Inj 250 ML @ 262.5 mls/hr IV. SIG Q24H [facility] Rx#:[id number] Oral 240 / 240 Output: Urine 600 / 600 500 / 500 Stool 250 / 250 Stool Amount (Stoma) 1025 / 1025 Right Lower Abdomen 1025 / 1025 Other: # Voids 2 Narrative: GENERAL: This is a well-nourished, well-developed patient, in no apparent distress. SKIN: Right foot ulceration HEAD: Atraumatic. EYES: Pupils equal round and reactive. ENT: Airway patent. NECK: Trachea midline. RESPIRATORY: Nonlabored breathing. MUSCULOSKELETAL:. Negative Homans sign bilaterally. NEUROLOGICAL: Awake and alert. Normal speech. Lower extremity physical exam: Vascular: Dorsalis pedis palpable, posterior tibial palpable. Capillary refill time within normal limits to digits X5 bilateral foot. Edema present right lower extremity Neuro: Gross sensation intact to bilateral lower extremity. Pinpoint sensation decreased. No hyperalgesia noted to bilateral lower extremity Dermatology: Ischemic eschar ulceration noted to right medial midfoot with mild surrounding erythema and edema. No drainage noted. Right fifth digit eschar noted superficial in nature with no hyperkeratotic skin noted and no clinical signs of infection. Musculoskeletal: Tender to palpation to to right foot medially and laterally at ulceration site. - Urinary Catheter Management Indwelling Urethral Catheter Cath placed during this visit: yes, but has since been removed by the nurse Reason for continuing: Decision to DC catheter Insertion date: 10/25/18 Insertion time: 13:18 Removal date: 10/26/18 Removal time: 15:30 Results - Labs CBC & Chem 7: 10/28/18 09:44 10/27/18 08:59 Labs: Laboratory Results - last 24 hr 10/25/18 10/28/18 11:20 09:44 Hgb 8.5 L Hct 24.1 L Blood Type A Positive Antibody Screen Negative MTS Gel Crossmatch See Detail - Imaging Impressions Lower Extremity Angiography 10/25/18 19:32 CONCLUSION: 1. Uncomplicated embolectomy and angioplasty of the right popliteal artery. Assessment and Plan - Plan 68-year-old male with right foot ulcerations Patient examined and evaluated with all questions answered, discussed with patient's over the phone Patient is to follow-up within 1 week of discharge with myself Dr. Hutchison We will follow while in house Santyl to be applied to medial and lateral eschar sites with moist to dry dressing Patient to continue wound custodial once discharged Thank you for this consult
--- NOTE | 2018-10-28 21:30 | P.DCO ---
Occupational Therapy Order: Evaluate and treat, Improve ADL, Gross motor coordination and Fine motor coordination Case Management Consult Case Management Consult-Home Health: Yes I have seen patient Zahc Moreira on 10/28/18. My clinical findings support the need for the requested home health care services because: Limited mobility due to disease progression I certify that my clinical findings support that this patient is homebound because: Unsafe to leave home unassisted
[2018-10-29] MEDS: HYDROmorphone PF Inj 0.5 MG/0.5 ML Syringe IV.PUSH PRN ×4 (01:45→21:26)
[2018-10-29] MEDS: Ketorolac Inj 30 MG/ML (IVP) Vial IV.PUSH SCH ×3 (05:40→21:30)
[2018-10-29] MEDS: Ascorbic Acid 500 MG Tablet PO SCH (08:19)
[2018-10-29] MEDS: Polysaccharide Iron Complex 150 MG Capsule PO SCH ×2 (08:19→21:32)
[2018-10-29] MEDS: Calcium/Vitamin D 250/125 MG Tablet PO SCH ×2 (08:19→21:32)
[2018-10-29] MEDS: Lactobacillus Acidophilus/L. Spores Tablet PO SCH ×3 (08:19→17:35)
[2018-10-29] MEDS: Folic Acid 1 MG Tablet PO SCH (08:19)
[2018-10-29] MEDS: Senna/Docusate Sodium 8.6/50 MG Tablet PO SCH ×2 (08:20→21:35)
[2018-10-29] MEDS: Gabapentin 100 MG Capsule PO SCH ×3 (08:20→17:35)
[2018-10-29] MEDS: Hydroxychloroquine 200 MG Tablet PO SCH ×2 (08:20→21:42)
[2018-10-29] MEDS: Magnesium Oxide 400 MG Tablet PO SCH (08:20)
--- NOTE | 2018-10-29 08:49 | P.PNADD ---
Addendum to Inpatient Note Reason for Addendum: Additional Documentation Additional information: Reviewed Podiatry input. 12 lead EKG ordered. Possible discharge on oral depending on the 12 lead EKG. Please call me when EKG done. Need QT interval on EKG to make decisions.
[2018-10-29] MEDS: Collagenase Oint 30 GM Tube TOPICAL SCH (10:27)
[2018-10-29] MEDS: LORazepam 1 MG Tablet PO PRN (10:32)
[2018-10-29 10:43] LABS: Baso % (Auto) 0.5 % (0.0-2.0); Eos # (Auto) 0.3 th/mm3 (0.0-0.4); Eos % (Auto) 3.1 % (0.0-4.0); Hematocrit 26.8 % (39.0-51.0); Hemoglobin 9.1 gm/dL (13.0-17.0); Lymph # (Auto) 1.1 th/mm3 (1.0-4.8); Mean Corpuscular HGB Conc 33.9 % (32.0-36.0); Mean Corpuscular Hemoglobin 31.9 pg (27.0-34.0); Mean Corpuscular Volume 94.1 fL (80.0-100.0); Mono # (Auto) 0.6 th/mm3 (0.0-0.9); Mono % (Auto) 6.4 % (0.0-8.0); Neut # (Auto) 6.9 th/mm3 (1.8-7.7); Platelet Count 320 th/mm3 (150-450); Red Blood Count 2.85 mil/mm3 (4.50-5.90); Red Cell Distribution Width 16.8 % (11.6-17.2); White Blood Count 8.8 th/mm3 (4.0-11.0)
[2018-10-29 11:04] LABS: Calcium 8.8 mg/dL (8.5-10.1); Carbon Dioxide 23.3 meq/L (21.0-32.0); Potassium 4.1 meq/L (3.5-5.1)
--- NOTE | 2018-10-29 15:48 | P.PNIM ---
Subjective Interval history: Follow-up cellulitis of the right foot. Improved pain, swelling and redness. Advice regarding narcotic to minimize use of IV Dilaudid. Discussed with infectious disease. Cleared for discharge by podiatry PT recommends home care Physical Exam Vital signs: Vital Signs 10/28/18 16:35 10/28/18 21:05 10/29/18 00:24 Temperature 98.1 F 97.7 F 97.8 F Pulse Rate 77 79 75 Respiratory Rate 20 20 20 Blood Pressure 143/70 H 137/65 129/66 Pulse Oximetry 99 99 100 10/29/18 04:50 10/29/18 08:03 10/29/18 11:37 Temperature 97.5 F L 98.0 F 97.8 F Pulse Rate 66 92 H 74 Respiratory Rate 20 20 16 Blood Pressure 122/68 113/68 120/61 Pulse Oximetry 100 98 100 Intake & Output 10/28/18 10/29/18 10/29/18 18:59 06:59 18:59 Intake Total 722.5 / 722.5 742.5 / 742.5 Output Total 1775 / 1775 1650 / 1650 1050 / 1050 Balance -1052.5 / -1052.5 -907.5 / -907.5 -1050 / -1050 Weight 73.6 kg Intake: IV 722.5 / 722.5 262.5 / 262.5 NS Inj 1,000 ML @ 100 mls/hr IV 460 / 460 .CONT .Q10H [facility] Rx#:[id number] Vancomycin Inj 1,250 MG In NS 262.5 / 262.5 262.5 / 262.5 Inj 250 ML @ 262.5 mls/hr IV. SIG Q24H [facility] Rx#:[id number] Oral 480 / 480 Output: Urine 500 / 500 1100 / 1100 1050 / 1050 Stool 250 / 250 Stool Amount (Stoma) 1025 / 1025 550 / 550 Right Lower Abdomen 1025 / 1025 550 / 550 Other: # Voids 2 Narrative: GENERAL: Well-developed and well-nourished SKIN: Warm and dry. HEAD: Normocephalic. EYES: No scleral icterus. No injection or drainage. NECK: Supple, trachea midline. No JVD or lymphadenopathy. CARDIOVASCULAR: Regular rate and rhythm without murmurs, gallops, or rubs. RESPIRATORY: Breath sounds equal bilaterally. No accessory muscle use. GASTROINTESTINAL: Abdomen soft, non-tender, nondistended. Ostomy bag in place MUSCULOSKELETAL: No cyanosis, or edema. Right foot with dry ulceration with improved erythema and edema BACK: Nontender without obvious deformity. No CVA tenderness. Urinary Catheter Management Indwelling Urethral Catheter: Cath placed during this visit: yes, but has since been removed by the nurse Reason for continuing: Decision to DC catheter Insertion date: 10/25/18 Insertion time: 13:18 Removal date: 10/26/18 Removal time: 15:30 Results Labs CBC & Chem 7: 10/29/18 10:23 10/29/18 10:23 Labs: Microbiology 10/23/18 14:30 Blood - Peripheral Aerobic Blood Culture - Final No growth in 5 days 10/23/18 14:30 Blood - Peripheral Anaerobic Blood Culture - Final No growth in 5 days 10/23/18 14:36 Blood - Peripheral Aerobic Blood Culture - Final No growth in 5 days 10/23/18 14:36 Blood - Peripheral Anaerobic Blood Culture - Final No growth in 5 days Imaging Imaging: Impressions Lower Extremity Angiography 10/25/18 19:32 CONCLUSION: 1. Uncomplicated embolectomy and angioplasty of the right popliteal artery. Procedures Procedures: right external iliac and common femoral endarterectomy patch angioplasty, right femoral to distal bypass with in situ saphenous vein and a right popliteal endarterectomy 10/26/18 Assessment and Plan Plan SEPSIS resolved CELLULITIS R FOOT w ACUTE R LIMB ISCHEMIA -per patient, cellulitis is improving would cont abx, as patient is immunosuppressed consider holding Plaquenil and methotrexate and has such severe ischemia high risk on infection, cont wound care. Podiatry recommends wound care and continue antibiotic. PT recommends home care. 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
[2018-10-29] MEDS: Vancomycin Inj 1,250 MG in Sodium Chlor 0.9% Inj 250 ML IV.SIG SCH (17:35)
--- NOTE | 2018-10-29 19:02 | P.PNVS ---
Subjective Subjective/Hospital Course: 68-year-old male known to me from previous encounters for left colon perforation. Patient now with cellulitis and edema of the right foot Patient has stigmata of coronary artery disease vascular disease and cardiovascular degenerative changes. Full workup is in progress CTA with runoff ordered We will continue to follow Full consult dictated Thanks Misael 10/25/2018 The patient has palpable bilateral femoral pulses weaker right than left. Dopplerable popliteal pulses. Right dorsalis pedis and posterior tibial arteries are present and Doppler +1 and on the left side both vessels are present and Doppler +2. The difference is probably due to the swelling of the right foot more so than any decrease to the blood flow in the foot area. Based on this exam patient probably has some degree of proximal disease in the iliac arteries and then likely either occlusion or stenosis of both SFAs. Clinically blood flow to the right leg is more compromised than to the left leg and this would be more of a regular pattern then diabetic pattern but we will see what CTA with runoff shows. I have examined the patient in the office and then in the hospital. Right foot indeed is swollen, mainly in the midfoot area with dorsum of the foot more prominently, edematous, rubor extending from the metatarsophalangeal area all the way up to the ankle. The patient has abrasion on the side of the foot as well as tiny ulcer on the fifth toe. CTA with runoff confirms the above picture somewhat. Patient has fairly tight right iliac stenosis common femoral artery stenosis and then Rady nearly occluded SFA on the right. Popliteal is patent however only just above the trifurcation Beyond trifurcation patient has runoff and vessels are sclerotic. Based on all of the above patient will need right inflow and outflow reconstruction with combination of stents and bypass. Will take patient to the operating room in next 24-48 hours. 10/26/2018 Status post Right external iliac and common femoral endarterectomy and bovine patch angioplasty Right femoral to distal bypass with in situ saphenous vein Right popliteal endarterectomy Right popliteal and distal catheter suction penumbra embolectomy Arteriogram x4 Incisions are clean and dry and patient has a bounding pulse in the saphenous vein graft Excellent posterior tibial and dorsalis pedis pulses and foot is nice and warm Patient can transfer to floor DC heparin start on Eliquis DC [place] DC IV fluids 10/27/2018 Incisions are clean and dry Patient is excellent distal dopplerable pulses and palpable pulse in the saphenous vein in situ graft Should remain on Eliquis Patient was transferred from ICU to medical floor and should definitely be on the surgical floor. I have discussed this with bed placement and nursing office and requested transfer to surgical floor From my point patient can be discharged anytime if okay with infectious disease specialist Follow-up with me in about 2-3 weeks 10/28/2018 Doing very well Excellent flow in the in situ graft Strong +2 dorsalis pedis posterior tibial pulses Incisions are clean and dry Patient doing very well at this time Nothing to add to care from vascular point 10/29/2018 Patient doing well at this time Excellent palpable pulse in the in situ graft and strong dopplerable pulses in the foot Incisions are clean and dry Patient can be discharged from my point any time and I will see him in the office for follow-up at which time we will determine the timing of surgery for reversal of diverting ileostomy Objective Vital Signs / I&O: Vital Signs 10/28/18 21:05 10/29/18 00:24 10/29/18 04:50 Temperature 97.7 F 97.8 F 97.5 F L Pulse Rate 79 75 66 Respiratory Rate 20 20 20 Blood Pressure 137/65 129/66 122/68 Pulse Oximetry 99 100 100 10/29/18 08:03 10/29/18 11:37 10/29/18 17:03 Temperature 98.0 F 97.8 F 98.1 F Pulse Rate 92 H 74 71 Respiratory Rate 20 16 18 Blood Pressure 113/68 120/61 111/56 L Pulse Oximetry 98 100 98 Intake & Output 10/29/18 10/29/18 10/30/18 06:59 18:59 06:59 Intake Total 742.5 / 742.5 Output Total 1650 / 1650 1050 / 1050 Balance -907.5 / -907.5 -1050 / -1050 Weight 73.6 kg Intake: IV 262.5 / 262.5 Vancomycin Inj 1,250 MG In NS 262.5 / 262.5 Inj 250 ML @ 262.5 mls/hr IV. SIG Q24H [facility] Rx#:[id number] Oral 480 / 480 Output: Urine 1100 / 1100 1050 / 1050 Stool Amount (Stoma) 550 / 550 Right Lower Abdomen 550 / 550 Other: # Voids 2 Laboratory Results - last 24 hr 10/29/18 10/29/18 10:23 10:23 WBC 8.8 RBC 2.85 L Hgb 9.1 L Hct 26.8 L MCV 94.1 MCH 31.9 MCHC 33.9 RDW 16.8 Plt Count 320 MPV 7.0 Neut % (Auto) 78.0 H Lymph % (Auto) 12.0 Stone % (Auto) 6.4 Eos % (Auto) 3.1 Baso % (Auto) 0.5 Neut # (Auto) 6.9 Lymph # (Auto) 1.1 Stone # (Auto) 0.6 Eos # (Auto) 0.3 Baso # (Auto) 0.0 WBC Differential . Differential Comment Auto diff final Sodium 143 Potassium 4.1 Chloride 111 H Carbon Dioxide 23.3 Anion Gap 9 BUN 18 Creatinine 0.99 Estimated GFR 75 L Random Glucose 105 Calcium 8.8 Impressions Lower Extremity Angiography 10/25/18 19:32 CONCLUSION: 1. Uncomplicated embolectomy and angioplasty of the right popliteal artery.
[2018-10-30] MEDS: Ketorolac Inj 30 MG/ML (IVP) Vial IV.PUSH SCH (05:45)
[2018-10-30] MEDS: HYDROmorphone PF Inj 0.5 MG/0.5 ML Syringe IV.PUSH PRN (07:33)
[2018-10-30] MEDS: Hydroxychloroquine 200 MG Tablet PO SCH ×2 (08:59→21:32)
[2018-10-30] MEDS: Polysaccharide Iron Complex 150 MG Capsule PO SCH ×2 (08:59→21:32)
[2018-10-30] MEDS: Magnesium Oxide 400 MG Tablet PO SCH (08:59)
[2018-10-30] MEDS: Ascorbic Acid 500 MG Tablet PO SCH (09:00)
[2018-10-30] MEDS: Folic Acid 1 MG Tablet PO SCH (09:00)
[2018-10-30] MEDS: Calcium/Vitamin D 250/125 MG Tablet PO SCH ×2 (09:01→21:33)
[2018-10-30] MEDS: Gabapentin 100 MG Capsule PO SCH ×3 (09:01→17:46)
[2018-10-30] MEDS: Lactobacillus Acidophilus/L. Spores Tablet PO SCH ×3 (09:01→17:46)
[2018-10-30] MEDS: Senna/Docusate Sodium 8.6/50 MG Tablet PO SCH ×2 (09:02→21:33)
[2018-10-30] MEDS: Collagenase Oint 30 GM Tube TOPICAL SCH (09:02)
--- NOTE | 2018-10-30 10:47 | P.PNIM ---
Subjective Interval history: Follow-up foot infection. Discussed with infectious disease, discharge tomorrow patient very anxious. Aware he needs to get off IV pain medicine states he is just using it for better coverage. Will increase Lortab to every 4 hours Physical Exam Vital signs: Vital Signs 10/29/18 11:37 10/29/18 17:03 10/29/18 21:04 Temperature 97.8 F 98.1 F 98.2 F Pulse Rate 74 71 75 Respiratory Rate 16 18 18 Blood Pressure 120/61 111/56 L 113/56 L Pulse Oximetry 100 98 100 10/30/18 00:35 10/30/18 05:00 10/30/18 07:46 Temperature 98.3 F 97.8 F 98.1 F Pulse Rate 77 69 69 Respiratory Rate 20 20 20 Blood Pressure 135/60 107/54 L 114/57 L Pulse Oximetry 100 97 98 Intake & Output 10/29/18 10/30/18 10/30/18 18:59 06:59 18:59 Intake Total 480 / 480 262.5 / 262.5 Output Total 1050 / 1050 1350 / 1350 Balance -1050 / -1050 -870 / -870 262.5 / 262.5 Weight 73.6 kg 73.6 kg Intake: IV 262.5 / 262.5 Vancomycin Inj 1,250 MG In NS 262.5 / 262.5 Inj 250 ML @ 262.5 mls/hr IV. SIG Q24H [facility] Rx#:[id number] Oral 480 / 480 Output: Urine 1050 / 1050 750 / 750 Stool Amount (Stoma) 600 / 600 Right Lower Abdomen 600 / 600 Other: # Voids 2 2 Narrative: GENERAL: Well-developed and well-nourished SKIN: Warm and dry. CARDIOVASCULAR: Regular rate and rhythm without murmurs, gallops, or rubs. RESPIRATORY: Breath sounds equal bilaterally. No accessory muscle use. GASTROINTESTINAL: Abdomen soft, non-tender, nondistended. Ostomy bag in place MUSCULOSKELETAL: No cyanosis, or edema. Right foot with dry ulceration with improved erythema and edema BACK: Nontender without obvious deformity. No CVA tenderness. Urinary Catheter Management Indwelling Urethral Catheter: Cath placed during this visit: yes, but has since been removed by the nurse Reason for continuing: Decision to DC catheter Insertion date: 10/25/18 Insertion time: 13:18 Removal date: 10/26/18 Removal time: 15:30 Results Labs CBC & Chem 7: 10/29/18 10:23 10/29/18 10:23 Procedures Procedures: right external iliac and common femoral endarterectomy patch angioplasty, right femoral to distal bypass with in situ saphenous vein and a right popliteal endarterectomy 10/26/18 Assessment and Plan Plan SEPSIS resolved CELLULITIS R FOOT w ACUTE R LIMB ISCHEMIA -per patient, cellulitis is improving would cont abx (IV vancomycin) as patient is immunosuppressed consider holding Plaquenil and methotrexate and has such severe ischemia high risk on infection, cont wound care. Podiatry recommends wound care and continue antibiotic. PT recommends home care. 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
[2018-10-30] MEDS: LORazepam 1 MG Tablet PO PRN ×2 (12:44→21:39)
--- NOTE | 2018-10-30 12:45 | P.PNID ---
Subjective Remarks: Mr. Moreira is a 68-year-old male with past medical history significant for rheumatoid arthritis on methotrexate, history of diverticulitis , history of colonic perforation and retroperitoneal abscess status post surgical intervention and diverting ileostomy. Patient grew multiple bacteria during that admission including VRE as well as Sarita glabrata. Patient was treated with oral antibiotics for the bacteria and discharged home on micafungin IV for Sarita glabrata infection using a PICC line. Patient has been following up with Dr. Douglas for the ileostomy. While at his visit he complained of worsening right foot cellulitis and infection which started about 2 weeks prior to this admission. He had bilateral lower extremity swelling which continued to improve to some extent with compression socks but the right ankle swelling persisted. Patient's thinks that the compression socks may have caused undue pressure on the medial aspect of his right ankle leading to the area of ulceration. Due to worsening foot infection including an area of blackening noted on the medial aspect of the right foot. Patient denies any fever or chills but of note patient is immune compromised. Patient did report feeling very fatigued. Patient denies having been told that he has any vascular issues in the past. Delayed entry patient seen on 10/29/2018. Overnight events reviewed No fevers No rash No diarrhea Antibiotics: Vanco IV Lines: Lines ok Past Medical History: reviewed Allergies/Adverse Reactions: Allergies No Known Allergies Allergy (Verified 10/23/18 13:46) Objective Vital Signs 10/29/18 17:03 10/29/18 21:04 10/30/18 00:35 Temperature 98.1 F 98.2 F 98.3 F Pulse Rate 71 75 77 Respiratory Rate 18 18 20 Blood Pressure 111/56 L 113/56 L 135/60 Pulse Oximetry 98 100 100 10/30/18 05:00 10/30/18 07:46 10/30/18 08:00 Temperature 97.8 F 98.1 F Pulse Rate 69 69 Respiratory Rate 20 20 14 Blood Pressure 107/54 L 114/57 L Pulse Oximetry 97 98 Intake & Output 10/29/18 10/30/18 10/30/18 18:59 06:59 18:59 Intake Total 480 / 480 262.5 / 262.5 Output Total 1050 / 1050 1350 / 1350 Balance -1050 / -1050 -870 / -870 262.5 / 262.5 Weight 73.6 kg 73.6 kg Intake: IV 262.5 / 262.5 Vancomycin Inj 1,250 MG In NS 262.5 / 262.5 Inj 250 ML @ 262.5 mls/hr IV. SIG Q24H [facility] Rx#:[id number] Oral 480 / 480 Output: Urine 1050 / 1050 750 / 750 Stool Amount (Stoma) 600 / 600 Right Lower Abdomen 600 / 600 Other: # Voids 2 2 10/23/18 14:30 Blood - Peripheral Aerobic Blood Culture - Final No growth in 5 days 10/23/18 14:30 Blood - Peripheral Anaerobic Blood Culture - Final No growth in 5 days 10/23/18 14:36 Blood - Peripheral Aerobic Blood Culture - Final No growth in 5 days 10/23/18 14:36 Blood - Peripheral Anaerobic Blood Culture - Final No growth in 5 days Lab - Hematology Results 10/29/18 10:23 WBC 8.8 RBC 2.85 L Hgb 9.1 L Hct 26.8 L MCV 94.1 MCH 31.9 MCHC 33.9 RDW 16.8 Plt Count 320 MPV 7.0 Neut % (Auto) 78.0 H Lymph % (Auto) 12.0 White % (Auto) 6.4 Eos % (Auto) 3.1 Baso % (Auto) 0.5 Neut # (Auto) 6.9 Lymph # (Auto) 1.1 White # (Auto) 0.6 Eos # (Auto) 0.3 Baso # (Auto) 0.0 WBC Differential . Differential Comment Auto diff final Lab - Chemistry Results 10/29/18 10:23 Sodium 143 Potassium 4.1 Chloride 111 H Carbon Dioxide 23.3 Anion Gap 9 BUN 18 Creatinine 0.99 Estimated GFR 75 L Random Glucose 105 Calcium 8.8 Imaging: ITS Impressions Venous Doppler Study 10/23/18 00:00 CONCLUSION: 1. The study is negative for lower extremity deep venous thrombosis. Foot X-Ray 10/23/18 15:33 CONCLUSION: No bone loss is identified. No foreign body identified. Lumbar Spine X-Ray 10/24/18 00:00 CONCLUSION: 1. Age-indeterminate compression deformity involving L3. 10-20% loss of height. 2. Degenerative changes most pronounced at L4-L5. Aorta w/Runoff CTA 10/24/18 13:00 OTHER STRUCTURES: Emphysematous changes within the lung bases. 8 mm nodule within the left lower lobe. Small calcified gallstones within an unremarkable gallbladder. Small nonobstructing renal calculi bilaterally measuring 2 mm. A right lower quadrant ileostomy. A near complete colectomy. Degenerative and scoliotic spine. CONCLUSION: 1. Significant stenosis at the junction of the right external iliac artery and common femoral artery. The rest of the inflow is patent. 2. Both lower extremities show multilevel SFA and popliteal disease including short segment occlusions. Runoff to the feet are via diffusely but mildly diseased trifurcation vessels. 3. 8mm left lower lobe pulmonary nodule. Consider a follow-up CT the chest in 6 months. 4. Cholelithiasis. Lower Extremity Angiography 10/25/18 19:32 CONCLUSION: 1. Uncomplicated embolectomy and angioplasty of the right popliteal artery. Physical Exam: GENERAL: Well-nourished well-developed, not in acute distress SKIN: Cool and dry, no generalized rash HEAD: Atraumatic. Normocephalic. No temporal or scalp tenderness. EYES: Pupils equal round and reactive. Scleral icterus. No injection or drainage. No petechia ENT: Nothing abnormal detected NECK: Trachea midline. Supple, nontender, no meningeal signs. CARDIOVASCULAR: HS audible. RESPIRATORY: Clear to auscultation bilaterally. GASTROINTESTINAL: Abdomen soft nontender. Ileostomy in place. Surgical site intact with no evidence of infection. MUSCULOSKELETAL: Bilateral hand swan-neck deformity, Heberden's nodes noted. Bilateral knee with surgical scars intact with no evidence of infection. Left foot with petechial skin changes noted. Decreased peripheral pulses. Right foot with a 3 x 4 cm area of ulceration with blackening of the skin noted. Dorsalis pedis pulses markedly diminished. NEUROLOGICAL: Alert oriented 3. Nonfocal. Psych cooperative IV line sites ok. Assessment and Plan - Plan Right foot cellulitis Right foot infected ulcer Probable peripheral arterial as well as vascular disease Rheumatoid arthritis on methotrexate Relative immune deficiency Coronary artery disease Bilateral knee with hardware in place prosthetic joints at risk for seeding Recommendations Continue vancomycin IV target trough 10-15. Await Podiatry input. Follow cultures Follow clinical course Plan discussed with patient concerned about oral antibiotic plan.dw her over phone.
--- NOTE | 2018-10-30 12:51 | P.PNID ---
Subjective Remarks: Mr. Moreira is a 68-year-old male with past medical history significant for rheumatoid arthritis on methotrexate, history of diverticulitis , history of colonic perforation and retroperitoneal abscess status post surgical intervention and diverting ileostomy. Patient grew multiple bacteria during that admission including VRE as well as Sarita glabrata. Patient was treated with oral antibiotics for the bacteria and discharged home on micafungin IV for Sarita glabrata infection using a PICC line. Patient has been following up with Dr. Douglas for the ileostomy. While at his visit he complained of worsening right foot cellulitis and infection which started about 2 weeks prior to this admission. He had bilateral lower extremity swelling which continued to improve to some extent with compression socks but the right ankle swelling persisted. Patient's thinks that the compression socks may have caused undue pressure on the medial aspect of his right ankle leading to the area of ulceration. Due to worsening foot infection including an area of blackening noted on the medial aspect of the right foot. Patient denies any fever or chills but of note patient is immune compromised. Patient did report feeling very fatigued. Patient denies having been told that he has any vascular issues in the past. ENTRY for 10/30/2018 Overnight events reviewed No fevers No rash No diarrhea Antibiotics: Vanco IV Lines: Lines ok Past Medical History: reviewed Allergies/Adverse Reactions: Allergies No Known Allergies Allergy (Verified 10/23/18 13:46) Objective Vital Signs 10/29/18 17:03 10/29/18 21:04 10/30/18 00:35 Temperature 98.1 F 98.2 F 98.3 F Pulse Rate 71 75 77 Respiratory Rate 18 18 20 Blood Pressure 111/56 L 113/56 L 135/60 Pulse Oximetry 98 100 100 10/30/18 05:00 10/30/18 07:46 10/30/18 08:00 Temperature 97.8 F 98.1 F Pulse Rate 69 69 Respiratory Rate 20 20 14 Blood Pressure 107/54 L 114/57 L Pulse Oximetry 97 98 Intake & Output 10/29/18 10/30/18 10/30/18 18:59 06:59 18:59 Intake Total 480 / 480 262.5 / 262.5 Output Total 1050 / 1050 1350 / 1350 Balance -1050 / -1050 -870 / -870 262.5 / 262.5 Weight 73.6 kg 73.6 kg Intake: IV 262.5 / 262.5 Vancomycin Inj 1,250 MG In NS 262.5 / 262.5 Inj 250 ML @ 262.5 mls/hr IV. SIG Q24H [facility] Rx#:[id number] Oral 480 / 480 Output: Urine 1050 / 1050 750 / 750 Stool Amount (Stoma) 600 / 600 Right Lower Abdomen 600 / 600 Other: # Voids 2 2 10/23/18 14:30 Blood - Peripheral Aerobic Blood Culture - Final No growth in 5 days 10/23/18 14:30 Blood - Peripheral Anaerobic Blood Culture - Final No growth in 5 days 10/23/18 14:36 Blood - Peripheral Aerobic Blood Culture - Final No growth in 5 days 10/23/18 14:36 Blood - Peripheral Anaerobic Blood Culture - Final No growth in 5 days Lab - Hematology Results 10/29/18 10:23 WBC 8.8 RBC 2.85 L Hgb 9.1 L Hct 26.8 L MCV 94.1 MCH 31.9 MCHC 33.9 RDW 16.8 Plt Count 320 MPV 7.0 Neut % (Auto) 78.0 H Lymph % (Auto) 12.0 Kings % (Auto) 6.4 Eos % (Auto) 3.1 Baso % (Auto) 0.5 Neut # (Auto) 6.9 Lymph # (Auto) 1.1 Kings # (Auto) 0.6 Eos # (Auto) 0.3 Baso # (Auto) 0.0 WBC Differential . Differential Comment Auto diff final Lab - Chemistry Results 10/29/18 10:23 Sodium 143 Potassium 4.1 Chloride 111 H Carbon Dioxide 23.3 Anion Gap 9 BUN 18 Creatinine 0.99 Estimated GFR 75 L Random Glucose 105 Calcium 8.8 Imaging: ITS Impressions Venous Doppler Study 10/23/18 00:00 CONCLUSION: 1. The study is negative for lower extremity deep venous thrombosis. Foot X-Ray 10/23/18 15:33 CONCLUSION: No bone loss is identified. No foreign body identified. Lumbar Spine X-Ray 10/24/18 00:00 CONCLUSION: 1. Age-indeterminate compression deformity involving L3. 10-20% loss of height. 2. Degenerative changes most pronounced at L4-L5. Aorta w/Runoff CTA 10/24/18 13:00 OTHER STRUCTURES: Emphysematous changes within the lung bases. 8 mm nodule within the left lower lobe. Small calcified gallstones within an unremarkable gallbladder. Small nonobstructing renal calculi bilaterally measuring 2 mm. A right lower quadrant ileostomy. A near complete colectomy. Degenerative and scoliotic spine. CONCLUSION: 1. Significant stenosis at the junction of the right external iliac artery and common femoral artery. The rest of the inflow is patent. 2. Both lower extremities show multilevel SFA and popliteal disease including short segment occlusions. Runoff to the feet are via diffusely but mildly diseased trifurcation vessels. 3. 8mm left lower lobe pulmonary nodule. Consider a follow-up CT the chest in 6 months. 4. Cholelithiasis. Lower Extremity Angiography 10/25/18 19:32 CONCLUSION: 1. Uncomplicated embolectomy and angioplasty of the right popliteal artery. Physical Exam: GENERAL: Well-nourished well-developed, not in acute distress SKIN: Cool and dry, no generalized rash HEAD: Atraumatic. Normocephalic. No temporal or scalp tenderness. EYES: Pupils equal round and reactive. Scleral icterus. No injection or drainage. No petechia ENT: Nothing abnormal detected NECK: Trachea midline. Supple, nontender, no meningeal signs. CARDIOVASCULAR: HS audible. RESPIRATORY: Clear to auscultation bilaterally. GASTROINTESTINAL: Abdomen soft nontender. Ileostomy in place. Surgical site intact with no evidence of infection. MUSCULOSKELETAL: Bilateral hand swan-neck deformity, Heberden's nodes noted. Bilateral knee with surgical scars intact with no evidence of infection. Left foot with petechial skin changes noted. Right foot with a 3 x 4 cm area of ulceration with blackening of the skin noted. NEUROLOGICAL: Alert oriented 3. Nonfocal. Psych cooperative IV line sites ok. Assessment and Plan - Plan Right foot cellulitis Right foot infected ulcer Probable peripheral arterial as well as vascular disease Rheumatoid arthritis on methotrexate Relative immune deficiency Coronary artery disease Bilateral knee with hardware in place prosthetic joints at risk for seeding Recommendations Continue vancomycin IV target trough 10-15. Ask podiatry to follow up as concerned about foot. I discussed with her that we expect some degree of redness as now vasculature has been restored as opposed to prior pale appearance. dw her oral antibiotics such as Zyvox have equal potency compared to Vanco IV. Vanco IV would need PICC line with its inherent risks of new infections. Also dw her patient was on all oral antibiotics and did well last admission. Only IV was Micafungin which was used as no oral option for Sairta glabrata. Discontinue Flexeril which was prn as patient is now on Zyvox (drug interactions ) Start Zyvox oral. Follow cultures Follow clinical course Plan discussed with patient
--- NOTE | 2018-10-30 12:56 | P.DCO ---
Post Hospital Infusion Therapy - Infusion Therapy Location of Infusion Therapy: Home Health Care IV Infusion Order Appointment Date: 10/31/18 - Patient Information Patient Weight: 73.6 kg - Diagnosis (1) Cellulitis Code(s): L03.90 - Cellulitis, unspecified - Administer Medication Vancomycin Additional Dosing Instructions: 1250 mg IV every 24 hours. Start Treatment: 10/31/18 Stop Treatment: 11/14/18 - Additional Information Venous Access: PICC Line Additional Instructions: [x] Peripheral flush and dressing changes per protocol [x] Implanted port and central online journalist: * Implanted port: 10 ml Normal Saline followed by 5 ml Heparin 100 units/ml Heparin flush after each use and monthly to maintain. [] May leave port accessed during therapy. [] May leave peripheral site accessed for duration of therapy. [x] If patient has SOB or respiratory distress, check oxygen saturation. If less than 90% or clinical signs of respiratory distress, administer oxygen at 2 L/min. via nasal cannula and notify physician. [x] Anaphylaxis/Reaction orders: * Stop infusion. * Keep IV line open with saline flush. * Notify physician. * Monitor vital signs every 15 minutes until symptoms resolve. * Check Oxygen saturation; Oxygen at 2 L/min. via nasal cannula if less than 90% or clinical signs of respiratory distress. * Administer diphenhydramine (Benadryl) 25 mg IV STAT, (unless patient has received as pre-med). May repeat once, if necessary. * Solu-Cortef 250 mg IVP over 30-60 seconds, use 100 mg vials for each dissolution. * Epinephrine (1mg/1 ml) 0.3 mg subcutaneously or IVP now with any signs of respiratory distress. * Check with physician for new additional pre-med orders if patient is re- challenged or re-treated. [x] May remove PICC line when treatment complete, after confirming with Physician. [x] If the patient is admitted to the hospital, the ED, or transferred via [facility] , complete transfer form including medication reconciliation order sheet. Weekly Labs: CBC w/diff, Creatinine, CRP, LFTs (Hepatic Function Test), Vancomycin Trough Additional Information: Please draw weekly labs and fax to the number provided below. If any abnormal lab values or change in clinical condition please call the number below. Dr.Reba Guallpa office: Address: [address] [place] [address] - Case Management Consult Case Management Consult-IVF: Yes - Patient Information Allergies No Known Allergies Allergy (Verified 10/23/18 13:46) (1) Cellulitis Qualifiers: Site of cellulitis: extremity Site of cellulitis of extremity: lower extremity Laterality: left Qualified Code(s): L03.116 - Cellulitis of left lower limb
[2018-10-30] MEDS: Linezolid 600 MG Tablet PO SCH ×2 (13:47→21:32)
--- NOTE | 2018-10-30 16:40 | P.DIET ---
Nutritional Evaluation Type of nutrition evaluation: follow-up Nutrition screening: [facility] [place]Poor [place] Intake) Subjective Subjective Comments: Eating 75% Objective - Diagnosis LLE Cellulitis with ulcer, failed outpt treatment - Objective % IBW: 86 (IBW = 178#) Body Weight Used for Calculations: Actual (69.7 kg) Energy Needs - Lower Range (kCal/kg): 30 Energy Needs - Upper Range (kCal/kg): 35 Lower Limit kCal/kg (kCals): 2,091 Upper Limit kCal/kg (kCals): 2,440 Lower Limit Protein Factor (Grams per Kg): 1.2 Upper Limit Protein Factor (Grams per Kg): 1.5 Lower Protein Needs (Protein): 84 Upper Protein Needs (Protein): 105 Dietitian Reviewed in Medical Record: Current diet, Curent medications, Intake & Output, Labs, Medical history Diet Order: Regular with Ensure Enlive tid Oral Diet Intake Amount: Good 75-90% Objective Comments: Meds include Protonix, folic acid Assessment Assessment: Pt presents with good intake, improving weight status with a BMI of 22.0 Appropriate diet and supplement are ordered. Consult RD if needed. Recommendations: Continue Diet as ordered and Ensure Enlive tid (350 kcals/ 20 gms pro/ 8 oz)
[2018-10-30] MEDS ORDERED: Pharmacy Ordered Lab Info OTHER SCH (16:45)
[2018-10-30] MEDS: Vancomycin Inj 1,250 MG in Sodium Chlor 0.9% Inj 250 ML IV.SIG SCH (17:54)
--- NOTE | 2018-10-31 01:08 | P.PNPOD ---
Subjective Interval history: Patient seen bedside resting comfortably. Physical Exam Vital signs: Vital Signs 10/30/18 05:00 10/30/18 07:46 10/30/18 08:00 Temperature 97.8 F 98.1 F Pulse Rate 69 69 Respiratory Rate 20 20 14 Blood Pressure 107/54 L 114/57 L Pulse Oximetry 97 98 10/30/18 12:00 10/30/18 17:47 10/30/18 21:03 Temperature 97.8 F 97.9 F 97.2 F L Pulse Rate 74 79 75 Respiratory Rate 20 18 20 Blood Pressure 126/60 105/58 L 126/64 Pulse Oximetry 100 100 100 10/31/18 00:52 Temperature 97.7 F Pulse Rate 72 Respiratory Rate 20 Blood Pressure 112/58 L Pulse Oximetry 97 Intake & Output 10/30/18 10/30/18 10/31/18 06:59 18:59 06:59 Intake Total 480 / 480 262.5 / 262.5 262.5 / 262.5 Output Total 1350 / 1350 Balance -870 / -870 262.5 / 262.5 262.5 / 262.5 Weight 73.6 kg 73.6 kg Intake: IV 262.5 / 262.5 262.5 / 262.5 Vancomycin Inj 1,250 MG In NS 262.5 / 262.5 262.5 / 262.5 Inj 250 ML @ 262.5 mls/hr IV. SIG Q24H [facility] Rx#:[id number] Oral 480 / 480 Output: Urine 750 / 750 Stool Amount (Stoma) 600 / 600 Right Lower Abdomen 600 / 600 Other: # Voids 2 Narrative: Increased edema and erythema noted to right medial ulceration site. No drainage noted. Distal second digit ulceration noted with serous drainage. No surrounding erythema or edema to right second digit. Medications and Allergies Active Medications: Active Medications Acetaminophen (Tylenol) 650 mg PO Q6H PRN PRN Reason: FOR FEVER 101 AND HIGHER Hydrocodone Bitart/Acetaminophen ([place] 10/325) 1 tab PO Q4H PRN PRN Reason: PAIN 1-10 Last Admin: 10/30/18 21:35 Dose: 1 tab Apixaban (Eliquis) 5 mg PO BID [facility] Last Admin: 10/30/18 21:33 Dose: 5 mg Ascorbic Acid (Vitamin C) 1,000 mg PO DAILY [facility] Last Admin: 10/30/18 09:00 Dose: 1,000 mg Aspirin (Ecotrin) 81 mg PO HS [facility] Last Admin: 10/30/18 21:32 Dose: 81 mg Atorvastatin Calcium (Lipitor) 40 mg PO HS [facility] Last Admin: 10/30/18 21:33 Dose: 40 mg Calcium/Vitamin D (Oscal With D 250/125 Mg) 2 tab PO BID [facility] Last Admin: 10/30/18 21:33 Dose: 2 tab Collagenase (Santyl Oint) 1 applicatio TOPICAL DAILY [facility] Last Admin: 10/30/18 09:02 Dose: 1 applicatio Folic Acid (Folic Acid) 1 mg PO DAILY [facility] Last Admin: 10/30/18 09:00 Dose: 1 mg Gabapentin (Neurontin) 100 mg PO TID [facility] Last Admin: 10/30/18 17:46 Dose: 100 mg Hydromorphone HCl (Dilaudid Pf Inj) 0.5 mg IV.PUSH Q8H PRN PRN Reason: BREAKTHROUGH PAIN Last Admin: 10/30/18 07:33 Dose: 0.5 mg Hydroxychloroquine Sulfate (Plaquenil) 200 mg PO BID [facility] Last Admin: 10/30/18 21:32 Dose: 200 mg Pharmacy Profile Note (Vancomycin Consult Pharmacy) 0 mls @ 0 mls/hr OTHER UNSCH [facility] Vancomycin HCl 1,250 mg/ (Sodium Chloride) 262.5 mls @ 262.5 mls/hr IV.SIG Q24H [facility] Last Infusion: 10/30/18 19:39 Dose: Infused Lactobacillus Acidophilus (Lactinex) 1 tab PO TID [facility] Last Admin: 10/30/18 17:46 Dose: 1 tab Linezolid (Zyvox) 600 mg PO Q12HR [facility] Last Admin: 10/30/18 21:32 Dose: 600 mg Lorazepam (Ativan) 1 mg PO Q6H PRN PRN Reason: ANXIETY Last Admin: 10/30/18 21:39 Dose: 1 mg Magnesium Oxide (Mag-Ox) 400 mg PO DAILY [facility] Last Admin: 10/30/18 08:59 Dose: 400 mg Meloxicam (Mobic) 15 mg PO DAILY@1800 [facility] Last Admin: 10/26/18 17:06 Dose: 15 mg Methotrexate (Rheumatrex) 20 mg PO Q7D [facility] Last Admin: 10/28/18 09:34 Dose: 20 mg Mupirocin (Bactroban 2% Oint) 1 applicatio TOPICAL BID [facility] Last Admin: 10/30/18 22:13 Dose: Not Given Naloxone HCl (Narcan Inj) 0.4 mg IV.PUSH PRN PRN PRN Reason: SEE LABEL COMMENTS Ondansetron HCl (Zofran Odt) 4 mg PO Q6H PRN PRN Reason: nausea and vomiting Last Admin: 10/29/18 21:42 Dose: 4 mg Pantoprazole Sodium (Protonix) 40 mg PO DAILY [facility] Last Admin: 10/30/18 09:01 Dose: 40 mg Polysaccharide Iron Complex (Nu-Iron) 150 mg PO BID [facility] Last Admin: 10/30/18 21:32 Dose: 150 mg Senna/Docusate Sodium (Avril-Colace) 1 tab PO BID [facility] Last Admin: 10/30/18 21:33 Dose: Not Given Sodium Chloride (Ns Flush) 2 ml IV.FLUSH BID [facility] Last Admin: 10/30/18 21:33 Dose: 2 ml Sodium Chloride (Ns Flush) 2 ml IV.FLUSH PRN PRN PRN Reason: FLUSH AFTER USING IV ACCESS Zinc Sulfate (Zinc-220) 220 mg PO DAILY [facility] Last Admin: 10/30/18 09:02 Dose: 220 mg Allergies Allergy/AdvReac Type Severity Reaction Status Date / Time No Known Allergies Allergy Verified 10/23/18 13:46 Home Medications Medication Instructions Recorded Confirmed Type aspirin [Aspir-Low] 81 mg PO HS 07/22/18 10/23/18 History folic acid 1 mg PO DAILY 07/22/18 10/23/18 History hydrocodone-acetaminophen 1 tab PO Q6H PRN 07/22/18 10/23/18 History hydroxychloroquine 200 mg PO BID 07/22/18 10/23/18 History magnesium 500 mg PO QAM 07/22/18 10/23/18 History meloxicam 15 mg PO QPM 07/22/18 10/23/18 History methotrexate sodium 8 mg PO QWEEK 07/22/18 10/23/18 History Results - Labs CBC & Chem 7: 10/29/18 10:23 10/29/18 10:23 Laboratory Results - last 24 hr 10/30/18 17:00 Vancomycin Trough 11.8 H - Procedures right external iliac and common femoral endarterectomy patch angioplasty, right femoral to distal bypass with in situ saphenous vein and a right popliteal endarterectomy 10/26/18 Assessment and Plan - Plan 68 year old with right foot medial ulceration, right distal tip second digit ulceration, right fifth digit ulceration MRI to right foot r/o OM versus abscess low index of suspicion for abscess Betadine soaked guaze with DSD to right foot
--- NOTE | 2018-10-31 06:56 | ECG ---
Date Performed: 10/29/2018 Time Performed: 10:30:21 PTAGE: 68 years EKG: Sinus rhythm WITH OCCASIONAL SUPRAVENTRICULAR PREMATURE COMPLEXES POSSIBLE INFERIOR MYOCARDIAL INFARCTION , PROBA KELLEY OLD WITH POSTERIOR EXTENSION BORDERLINE ECG PREVIOUS TRACING : 09/08/2018 11.06 Since the previous tracing, no significant change noted DOCTOR: Yash Wood Interpretating Date/Time 10/31/2018 06:56:04
[2018-10-31] MEDS ORDERED: Gadobutrol PF 7.5 MMOL/7.5 ML Vial (for RAD) IV.SIG ONE (08:52)
--- NOTE | 2018-10-31 09:07 | MR ---
EXAM DATE: 10/31/2018 8:48 AM EST AGE/SEX: 68 years / Male INDICATIONS: Osteomyelitis. Wounds on dorsal, medial, and lateral aspect of right foot. CLINICAL DATA: This is the patient's subsequent encounter. Patient reports that signs and symptoms h ave been present for 1 week and indicates a pain score of 3/10. MEDICAL/SURGICAL HISTORY: Hypertension. CABG. ileostomy, rotator cuff, bilateral knee surgery COMPARISON: No prior exams available for comparison. TECHNIQUE: Multiplanar, multisequence MRI examination was performed without contrast and after th e intravenous administration of 7 ml Gadavist (gadobutrol) single exam dose. FINDINGS: There is ill-defined dorsal soft tissue edema and enhancement of the fifth toe. There is adjacent mod erate bony edema and bony enhancement of the distal pole of the proximal phalanx and the middle phala nx of the fifth toe. No evidence of confluent bone marrow signal abnormality on the precontrast T1-we ighted images however. These findings could represent bony reactive change from adjacent soft tissue infection or early osteomyelitis. Diffuse superficial soft tissue edema of the forefoot. Diffuse fatty atrophy of the foot muscles. All the visualized tendons are intact. No evidence of organized abscess of the soft tissues. Prominent osteoarthritic findings of the great toe sesamoids and MTP joint. Mild osteoarthritic findi ngs of the fourth tarsometatarsal joint and navicular cuneiform joint. CONCLUSION: 1. Ill-defined soft tissue edema and enhancement of the fifth toe indicating cellulitis in the prope r clinical setting. 2. Focal bony edema and enhancement about the proximal interphalangeal joint of the fifth toe but no corresponding abnormality on the precontrast T1-weighted images. Findings indicate either reactive b murray change from adjacent soft tissue infection or early osteomyelitis. Electronically signed by: Pietro Holland MD Board Certified Radiologist 10/31/2018 9:05 AM EST
[2018-10-31] MEDS: Collagenase Oint 30 GM Tube TOPICAL SCH (09:32)
[2018-10-31] MEDS: Linezolid 600 MG Tablet PO SCH (09:42)
[2018-10-31] MEDS: Senna/Docusate Sodium 8.6/50 MG Tablet PO SCH ×2 (09:42→21:59)
[2018-10-31] MEDS: Lactobacillus Acidophilus/L. Spores Tablet PO SCH ×3 (09:43→17:43)
[2018-10-31] MEDS: Ascorbic Acid 500 MG Tablet PO SCH (09:43)
[2018-10-31] MEDS: Magnesium Oxide 400 MG Tablet PO SCH (09:43)
[2018-10-31] MEDS: Hydroxychloroquine 200 MG Tablet PO SCH ×2 (09:44→21:55)
[2018-10-31] MEDS: Gabapentin 100 MG Capsule PO SCH ×3 (09:44→17:43)
[2018-10-31] MEDS: Folic Acid 1 MG Tablet PO SCH (09:44)
[2018-10-31] MEDS: Polysaccharide Iron Complex 150 MG Capsule PO SCH ×2 (09:45→21:54)
[2018-10-31] MEDS: Calcium/Vitamin D 250/125 MG Tablet PO SCH ×2 (09:45→21:54)
--- NOTE | 2018-10-31 11:34 | P.PNVS ---
Subjective Subjective/Hospital Course: 68-year-old male known to me from previous encounters for left colon perforation. Patient now with cellulitis and edema of the right foot Patient has stigmata of coronary artery disease vascular disease and cardiovascular degenerative changes. Full workup is in progress CTA with runoff ordered We will continue to follow Full consult dictated Thanks Misael 10/25/2018 The patient has palpable bilateral femoral pulses weaker right than left. Dopplerable popliteal pulses. Right dorsalis pedis and posterior tibial arteries are present and Doppler +1 and on the left side both vessels are present and Doppler +2. The difference is probably due to the swelling of the right foot more so than any decrease to the blood flow in the foot area. Based on this exam patient probably has some degree of proximal disease in the iliac arteries and then likely either occlusion or stenosis of both SFAs. Clinically blood flow to the right leg is more compromised than to the left leg and this would be more of a regular pattern then diabetic pattern but we will see what CTA with runoff shows. I have examined the patient in the office and then in the hospital. Right foot indeed is swollen, mainly in the midfoot area with dorsum of the foot more prominently, edematous, rubor extending from the metatarsophalangeal area all the way up to the ankle. The patient has abrasion on the side of the foot as well as tiny ulcer on the fifth toe. CTA with runoff confirms the above picture somewhat. Patient has fairly tight right iliac stenosis common femoral artery stenosis and then Rady nearly occluded SFA on the right. Popliteal is patent however only just above the trifurcation Beyond trifurcation patient has runoff and vessels are sclerotic. Based on all of the above patient will need right inflow and outflow reconstruction with combination of stents and bypass. Will take patient to the operating room in next 24-48 hours. 10/26/2018 Status post Right external iliac and common femoral endarterectomy and bovine patch angioplasty Right femoral to distal bypass with in situ saphenous vein Right popliteal endarterectomy Right popliteal and distal catheter suction penumbra embolectomy Arteriogram x4 Incisions are clean and dry and patient has a bounding pulse in the saphenous vein graft Excellent posterior tibial and dorsalis pedis pulses and foot is nice and warm Patient can transfer to floor DC heparin start on Eliquis DC [place] DC IV fluids 10/27/2018 Incisions are clean and dry Patient is excellent distal dopplerable pulses and palpable pulse in the saphenous vein in situ graft Should remain on Eliquis Patient was transferred from ICU to medical floor and should definitely be on the surgical floor. I have discussed this with bed placement and nursing office and requested transfer to surgical floor From my point patient can be discharged anytime if okay with infectious disease specialist Follow-up with me in about 2-3 weeks 10/28/2018 Doing very well Excellent flow in the in situ graft Strong +2 dorsalis pedis posterior tibial pulses Incisions are clean and dry Patient doing very well at this time Nothing to add to care from vascular point 10/29/2018 Patient doing well at this time Excellent palpable pulse in the in situ graft and strong dopplerable pulses in the foot Incisions are clean and dry Patient can be discharged from my point any time and I will see him in the office for follow-up at which time we will determine the timing of surgery for reversal of diverting ileostomy Objective Vital Signs / I&O: Vital Signs 10/30/18 12:00 10/30/18 17:47 10/30/18 21:03 Temperature 97.8 F 97.9 F 97.2 F L Pulse Rate 74 79 75 Respiratory Rate 20 18 20 Blood Pressure 126/60 105/58 L 126/64 Pulse Oximetry 100 100 100 10/31/18 00:52 10/31/18 03:14 10/31/18 05:11 Temperature 97.7 F 97.8 F Pulse Rate 72 86 Respiratory Rate 20 18 20 Blood Pressure 112/58 L 110/55 L Pulse Oximetry 97 98 Intake & Output 10/30/18 10/31/18 10/31/18 18:59 06:59 18:59 Intake Total 262.5 / 262.5 262.5 / 262.5 Output Total 725 / 725 Balance 262.5 / 262.5 -462.5 / -462.5 Weight 73.6 kg 74.1 kg Intake: IV 262.5 / 262.5 262.5 / 262.5 Vancomycin Inj 1,250 MG In NS 262.5 / 262.5 262.5 / 262.5 Inj 250 ML @ 262.5 mls/hr IV. SIG Q24H [facility] Rx#:[id number] Output: Urine 725 / 725 Laboratory Results - last 24 hr 10/30/18 17:00 Vancomycin Trough 11.8 H Impressions Foot MRI 10/31/18 00:00 CONCLUSION: 1. Ill-defined soft tissue edema and enhancement of the fifth toe indicating cellulitis in the proper clinical setting. 2. Focal bony edema and enhancement about the proximal interphalangeal joint of the fifth toe but no corresponding abnormality on the precontrast T1- weighted images. Findings indicate either reactive bony change from adjacent soft tissue infection or early osteomyelitis.
[2018-10-31] MEDS: HYDROmorphone PF Inj 0.5 MG/0.5 ML Syringe IV.PUSH PRN ×2 (12:22→21:53)
--- NOTE | 2018-10-31 12:30 | P.PNIM ---
Subjective Interval history: F/u right foot infection. Patient with no new complaints. Seen with ID Physical Exam Vital signs: Vital Signs 10/30/18 17:47 10/30/18 21:03 10/31/18 00:52 Temperature 97.9 F 97.2 F L 97.7 F Pulse Rate 79 75 72 Respiratory Rate 18 20 20 Blood Pressure 105/58 L 126/64 112/58 L Pulse Oximetry 100 100 97 10/31/18 03:14 10/31/18 05:11 Temperature 97.8 F Pulse Rate 86 Respiratory Rate 18 20 Blood Pressure 110/55 L Pulse Oximetry 98 Intake & Output 10/30/18 10/31/18 10/31/18 18:59 06:59 18:59 Intake Total 262.5 / 262.5 262.5 / 262.5 Output Total 725 / 725 Balance 262.5 / 262.5 -462.5 / -462.5 Weight 73.6 kg 74.1 kg Intake: IV 262.5 / 262.5 262.5 / 262.5 Vancomycin Inj 1,250 MG In NS 262.5 / 262.5 262.5 / 262.5 Inj 250 ML @ 262.5 mls/hr IV. SIG Q24H [facility] Rx#:[id number] Output: Urine 725 / 725 Narrative: GENERAL: Well-developed and well-nourished SKIN: Warm and dry. CARDIOVASCULAR: Regular rate and rhythm without murmurs, gallops, or rubs. RESPIRATORY: Breath sounds equal bilaterally. No accessory muscle use. GASTROINTESTINAL: Abdomen soft, non-tender, nondistended. Ostomy bag in place MUSCULOSKELETAL: No cyanosis, or edema. Right foot with black ulceration 3 x 4 cm with improved erythema and edema to the right second toe tip with ulceration , swelling and warmth. Fifth toe with deepening ulceration with a smaller ulcer inferior to it BACK: Nontender without obvious deformity. No CVA tenderness. Urinary Catheter Management Indwelling Urethral Catheter: Cath placed during this visit: yes, but has since been removed by the nurse Reason for continuing: Decision to DC catheter Insertion date: 10/25/18 Insertion time: 13:18 Removal date: 10/26/18 Removal time: 15:30 Results Labs CBC & Chem 7: 10/29/18 10:23 10/31/18 10:44 Imaging Imaging: Impressions Foot MRI 10/31/18 00:00 CONCLUSION: 1. Ill-defined soft tissue edema and enhancement of the fifth toe indicating cellulitis in the proper clinical setting. 2. Focal bony edema and enhancement about the proximal interphalangeal joint of the fifth toe but no corresponding abnormality on the precontrast T1- weighted images. Findings indicate either reactive bony change from adjacent soft tissue infection or early osteomyelitis. Procedures Procedures: right external iliac and common femoral endarterectomy patch angioplasty, right femoral to distal bypass with in situ saphenous vein and a right popliteal endarterectomy 10/26/18 Assessment and Plan (1) Cellulitis: Code(s): L03.90 - Cellulitis, unspecified Status: Acute Plan SEPSIS resolved CELLULITIS R FOOT w ACUTE R LIMB ISCHEMIAcont abx (IV vancomycin) as patient is immunosuppressed consider holding Plaquenil and methotrexate and has such severe ischemia high risk on infection, cont wound care. Podiatry recommends wound care and continue antibiotic. IV Zosyn has been added. In light of MRI results may need additional surgical intervention. PT recommends home care. Pain management counseled regarding narcotic discontinued [employer] severe right external iliac, common femoral artery superficial artery popliteal artery occlusion with distal severe stenosis status post right external iliac and common femoral endarterectomy patch angioplasty, right femoral to distal bypass with in situ saphenous vein and a right popliteal endarterectomy10/26/18. cont asa, statin, apixaban. 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) w ostomy stable RA on chronic plaquenil,mtx immunocompromised, cont pain control DYSLIPIDEMIA on lipitor ANEMIA chronic and acute post op blood loss - mvi, iron OSTEOPENIA chronic cmporession fx L3, LLL PULMONARY NODULE - found on ct, fu ct in 6 mo CAD w stent and CABG hx cont asa VIT D def - vit d supplement dvt prophylaxis - eliquis dispo -home health care Discharge pending ID and podiatry clearance Progress Note: Quality VTE Deep Vein Thrombosis/Pulmonary Embolism Present on Admission: No _ (1) Cellulitis Qualifiers: Laterality: left Site of cellulitis: extremity Site of cellulitis of extremity: lower extremity Site of cellulitis of trunk: Qualified Code(s): L03.116 - Cellulitis of left lower limb
--- NOTE | 2018-10-31 13:30 | P.PNVS ---
Subjective Subjective/Hospital Course: 68-year-old male known to me from previous encounters for left colon perforation. Patient now with cellulitis and edema of the right foot Patient has stigmata of coronary artery disease vascular disease and cardiovascular degenerative changes. Full workup is in progress CTA with runoff ordered We will continue to follow Full consult dictated Thanks Misael 10/25/2018 The patient has palpable bilateral femoral pulses weaker right than left. Dopplerable popliteal pulses. Right dorsalis pedis and posterior tibial arteries are present and Doppler +1 and on the left side both vessels are present and Doppler +2. The difference is probably due to the swelling of the right foot more so than any decrease to the blood flow in the foot area. Based on this exam patient probably has some degree of proximal disease in the iliac arteries and then likely either occlusion or stenosis of both SFAs. Clinically blood flow to the right leg is more compromised than to the left leg and this would be more of a regular pattern then diabetic pattern but we will see what CTA with runoff shows. I have examined the patient in the office and then in the hospital. Right foot indeed is swollen, mainly in the midfoot area with dorsum of the foot more prominently, edematous, rubor extending from the metatarsophalangeal area all the way up to the ankle. The patient has abrasion on the side of the foot as well as tiny ulcer on the fifth toe. CTA with runoff confirms the above picture somewhat. Patient has fairly tight right iliac stenosis common femoral artery stenosis and then Rady nearly occluded SFA on the right. Popliteal is patent however only just above the trifurcation Beyond trifurcation patient has runoff and vessels are sclerotic. Based on all of the above patient will need right inflow and outflow reconstruction with combination of stents and bypass. Will take patient to the operating room in next 24-48 hours. 10/26/2018 Status post Right external iliac and common femoral endarterectomy and bovine patch angioplasty Right femoral to distal bypass with in situ saphenous vein Right popliteal endarterectomy Right popliteal and distal catheter suction penumbra embolectomy Arteriogram x4 Incisions are clean and dry and patient has a bounding pulse in the saphenous vein graft Excellent posterior tibial and dorsalis pedis pulses and foot is nice and warm Patient can transfer to floor DC heparin start on Eliquis DC Mornoy DC IV fluids 10/27/2018 Incisions are clean and dry Patient is excellent distal dopplerable pulses and palpable pulse in the saphenous vein in situ graft Should remain on Eliquis Patient was transferred from ICU to medical floor and should definitely be on the surgical floor. I have discussed this with bed placement and nursing office and requested transfer to surgical floor From my point patient can be discharged anytime if okay with infectious disease specialist Follow-up with me in about 2-3 weeks 10/28/2018 Doing very well Excellent flow in the in situ graft Strong +2 dorsalis pedis posterior tibial pulses Incisions are clean and dry Patient doing very well at this time Nothing to add to care from vascular point 10/29/2018 Patient doing well at this time Excellent palpable pulse in the in situ graft and strong dopplerable pulses in the foot Incisions are clean and dry Patient can be discharged from my point any time and I will see him in the office for follow-up at which time we will determine the timing of surgery for reversal of diverting ileostomy 10/31/2018 Patient doing very well Leg is warm and well-perfused and proximal distal pulses are intact patient has a great Palpable pulse in the in situ graft and strong dopplerable dorsalis pedis and posterior tibial Apparently patient had some blanching of his greater toe when he was seen by the infectious disease specialist and I discussed this with her but by the time I got there toe appears to be nice and red so patient might have had some vasospasm and is clearly affected by small vessel disease however no limb threatening or toe threatening ischemia is present at this time Necrotic ulcer of the medial aspect of the hallux addressed by podiatry Podiatry and ID consults greatly appreciated Patient can be discharged anytime Objective Vital Signs / I&O: Vital Signs 10/30/18 17:47 10/30/18 21:03 10/31/18 00:52 Temperature 97.9 F 97.2 F L 97.7 F Pulse Rate 79 75 72 Respiratory Rate 18 20 20 Blood Pressure 105/58 L 126/64 112/58 L Pulse Oximetry 100 100 97 10/31/18 03:14 10/31/18 05:11 10/31/18 12:12 Temperature 97.8 F 98.1 F Pulse Rate 86 94 H Respiratory Rate 18 20 22 Blood Pressure 110/55 L 120/79 Pulse Oximetry 98 98 Intake & Output 10/30/18 10/31/18 10/31/18 18:59 06:59 18:59 Intake Total 262.5 / 262.5 262.5 / 262.5 Output Total 725 / 725 Balance 262.5 / 262.5 -462.5 / -462.5 Weight 73.6 kg 74.1 kg Intake: IV 262.5 / 262.5 262.5 / 262.5 Vancomycin Inj 1,250 MG In NS 262.5 / 262.5 262.5 / 262.5 Inj 250 ML @ 262.5 mls/hr IV. SIG Q24H [facility] Rx#:[id number] Output: Urine 725 / 725 Laboratory Results - last 24 hr 10/30/18 10/31/18 17:00 10:44 Creatinine 1.13 Estimated GFR 64 L Vancomycin Trough 11.8 H Impressions Foot MRI 10/31/18 00:00 CONCLUSION: 1. Ill-defined soft tissue edema and enhancement of the fifth toe indicating cellulitis in the proper clinical setting. 2. Focal bony edema and enhancement about the proximal interphalangeal joint of the fifth toe but no corresponding abnormality on the precontrast T1- weighted images. Findings indicate either reactive bony change from adjacent soft tissue infection or early osteomyelitis.
--- NOTE | 2018-10-31 14:24 | P.PNID ---
Subjective Remarks: Mr. Moreira is a 68-year-old male with past medical history significant for rheumatoid arthritis on methotrexate, history of diverticulitis , history of colonic perforation and retroperitoneal abscess status post surgical intervention and diverting ileostomy. Patient grew multiple bacteria during that admission including VRE as well as Sarita glabrata. Patient was treated with oral antibiotics for the bacteria and discharged home on micafungin IV for Sarita glabrata infection using a PICC line. Patient has been following up with Dr. Douglas for the ileostomy. While at his visit he complained of worsening right foot cellulitis and infection which started about 2 weeks prior to this admission. He had bilateral lower extremity swelling which continued to improve to some extent with compression socks but the right ankle swelling persisted. Patient's thinks that the compression socks may have caused undue pressure on the medial aspect of his right ankle leading to the area of ulceration. Due to worsening foot infection including an area of blackening noted on the medial aspect of the right foot. Patient denies any fever or chills but of note patient is immune compromised. Patient did report feeling very fatigued. Patient denies having been told that he has any vascular issues in the past. Overnight events reviewed No fevers No rash No diarrhea Patient reports being seen by last night. MRI findings dw patient and in room. Antibiotics: Vanco IV Lines: Lines ok Past Medical History: reviewed Allergies/Adverse Reactions: Allergies No Known Allergies Allergy (Verified 10/23/18 13:46) Objective Vital Signs 10/30/18 17:47 10/30/18 21:03 10/31/18 00:52 Temperature 97.9 F 97.2 F L 97.7 F Pulse Rate 79 75 72 Respiratory Rate 18 20 20 Blood Pressure 105/58 L 126/64 112/58 L Pulse Oximetry 100 100 97 10/31/18 03:14 10/31/18 05:11 10/31/18 12:12 Temperature 97.8 F 98.1 F Pulse Rate 86 94 H Respiratory Rate 18 20 22 Blood Pressure 110/55 L 120/79 Pulse Oximetry 98 98 Intake & Output 10/30/18 10/31/18 10/31/18 18:59 06:59 18:59 Intake Total 262.5 / 262.5 262.5 / 262.5 Output Total 725 / 725 Balance 262.5 / 262.5 -462.5 / -462.5 Weight 73.6 kg 74.1 kg Intake: IV 262.5 / 262.5 262.5 / 262.5 Vancomycin Inj 1,250 MG In NS 262.5 / 262.5 262.5 / 262.5 Inj 250 ML @ 262.5 mls/hr IV. SIG Q24H [facility] Rx#:[id number] Output: Urine 725 / 725 10/23/18 14:30 Blood - Peripheral Aerobic Blood Culture - Final No growth in 5 days 10/23/18 14:30 Blood - Peripheral Anaerobic Blood Culture - Final No growth in 5 days 10/23/18 14:36 Blood - Peripheral Aerobic Blood Culture - Final No growth in 5 days 10/23/18 14:36 Blood - Peripheral Anaerobic Blood Culture - Final No growth in 5 days Lab - Chemistry Results 10/31/18 10:44 Creatinine 1.13 Estimated GFR 64 L Imaging: ITS Impressions Venous Doppler Study 10/23/18 00:00 CONCLUSION: 1. The study is negative for lower extremity deep venous thrombosis. Foot X-Ray 10/23/18 15:33 CONCLUSION: No bone loss is identified. No foreign body identified. Lumbar Spine X-Ray 10/24/18 00:00 CONCLUSION: 1. Age-indeterminate compression deformity involving L3. 10-20% loss of height. 2. Degenerative changes most pronounced at L4-L5. Aorta w/Runoff CTA 10/24/18 13:00 OTHER STRUCTURES: Emphysematous changes within the lung bases. 8 mm nodule within the left lower lobe. Small calcified gallstones within an unremarkable gallbladder. Small nonobstructing renal calculi bilaterally measuring 2 mm. A right lower quadrant ileostomy. A near complete colectomy. Degenerative and scoliotic spine. CONCLUSION: 1. Significant stenosis at the junction of the right external iliac artery and common femoral artery. The rest of the inflow is patent. 2. Both lower extremities show multilevel SFA and popliteal disease including short segment occlusions. Runoff to the feet are via diffusely but mildly diseased trifurcation vessels. 3. 8mm left lower lobe pulmonary nodule. Consider a follow-up CT the chest in 6 months. 4. Cholelithiasis. Lower Extremity Angiography 10/25/18 19:32 CONCLUSION: 1. Uncomplicated embolectomy and angioplasty of the right popliteal artery. Foot MRI 10/31/18 00:00 CONCLUSION: 1. Ill-defined soft tissue edema and enhancement of the fifth toe indicating cellulitis in the proper clinical setting. 2. Focal bony edema and enhancement about the proximal interphalangeal joint of the fifth toe but no corresponding abnormality on the precontrast T1- weighted images. Findings indicate either reactive bony change from adjacent soft tissue infection or early osteomyelitis. Physical Exam: GENERAL: Well-nourished well-developed, not in acute distress SKIN: Cool and dry, no generalized rash HEAD: Atraumatic. Normocephalic. No temporal or scalp tenderness. EYES: Pupils equal round and reactive. Scleral icterus. No injection or drainage. No petechia ENT: Nothing abnormal detected NECK: Trachea midline. Supple, nontender, no meningeal signs. CARDIOVASCULAR: HS audible. RESPIRATORY: Clear to auscultation bilaterally. GASTROINTESTINAL: Abdomen soft nontender. Ileostomy in place. Surgical site intact with no evidence of infection. MUSCULOSKELETAL: Bilateral hand swan-neck deformity, Heberden's nodes noted. Bilateral knee with surgical scars intact with no evidence of infection. Left foot with petechial skin changes noted. Right foot with a 3 x 4 cm area of ulceration with blackening of the skin noted on medial aspect of dorsum of foot. 2nd toe on right foot tip with ulceration noted, swelling, warmth and taughtness noted. This is a new finding since yday. 5th toe had a small pin head size area on admission till yday and today it is a size of small pea and appears to be deeper compared to yday. There is another pin head size lesion below it which is new since yday. NEUROLOGICAL: Alert oriented 3. Nonfocal. Psych cooperative IV line sites ok. Assessment and Plan (1) Cellulitis Status: Acute Code(s): L03.90 - Cellulitis, unspecified - Plan Right foot cellulitis Right foot infected ulcer Probable peripheral arterial as well as vascular disease Rheumatoid arthritis on methotrexate Relative immune deficiency Coronary artery disease Bilateral knee with hardware in place prosthetic joints at risk for seeding Recommendations Continue vancomycin IV target trough 10-15 DC Zyvox oral as no plan for discharge. Start Zosyn IV for possible new PSAE infection as clinically initially was improving. Concern ongoing small vessel disease from RA may be contributing worsening swelling of the foot. New pictures sent to in OR with patients permission. Case dw he will come and see patient. aye griffiths RN dw patient and in room who are thankful of care provided. dw them possibility of need for further surgery depending on input from surgeons. Follow cultures Follow clinical course Plan discussed with patient (1) Cellulitis Qualifiers: Site of cellulitis: extremity Site of cellulitis of extremity: lower extremity Laterality: left Qualified Code(s): L03.116 - Cellulitis of left lower limb
[2018-10-31] MEDS: LORazepam 1 MG Tablet PO PRN (15:21)
[2018-10-31] MEDS: Piperacil/Tazo 4.5 GM Premix 4.5 GM/100 ML BAG IV.SIG SCH (16:51)
[2018-10-31] MEDS: Vancomycin Inj 1,250 MG in Sodium Chlor 0.9% Inj 250 ML IV.SIG SCH (17:44)
--- NOTE | 2018-10-31 18:49 | P.PNPOD ---
Subjective Interval history: Patient seen bedside. Discussed MRI with patient. Physical Exam Vital signs: Vital Signs 10/30/18 21:03 10/31/18 00:52 10/31/18 03:14 Temperature 97.2 F L 97.7 F Pulse Rate 75 72 Respiratory Rate 20 20 18 Blood Pressure 126/64 112/58 L Pulse Oximetry 100 97 10/31/18 05:11 10/31/18 12:12 10/31/18 17:50 Temperature 97.8 F 98.1 F 98.1 F Pulse Rate 86 94 H 70 Respiratory Rate 20 22 18 Blood Pressure 110/55 L 120/79 120/61 Pulse Oximetry 98 98 98 Intake & Output 10/30/18 10/31/18 10/31/18 18:59 06:59 18:59 Intake Total 262.5 / 262.5 262.5 / 262.5 0 / 0 Output Total 725 / 725 Balance 262.5 / 262.5 -462.5 / -462.5 0 / 0 Weight 73.6 kg 74.1 kg Intake: IV 262.5 / 262.5 262.5 / 262.5 0 / 0 Zosyn 4.5 GM Premix 4.5 gm In 0 / 0 100 ml @ 200 mls/hr IV.SIG Q8H [facility] Rx#:[id number] Vancomycin Inj 1,250 MG In NS 262.5 / 262.5 262.5 / 262.5 Inj 250 ML @ 262.5 mls/hr IV. SIG Q24H [facility] Rx#:[id number] Output: Urine 725 / 725 Narrative: Decreased erythema and edema noted to right foot surrounding medial midfoot ulceration. Probe to bone noted to right fifth digit. Capillary refill time under 3 seconds to digits x5. Improvement noted to right second digit distal tip ulceration with granular base and mild hyperkeratotic borders. Medications and Allergies Active Medications: Active Medications Acetaminophen (Tylenol) 650 mg PO Q6H PRN PRN Reason: FOR FEVER 101 AND HIGHER Hydrocodone Bitart/Acetaminophen (Logan 10/325) 1 tab PO Q4H PRN PRN Reason: PAIN 1-10 Last Admin: 10/31/18 15:09 Dose: 1 tab Apixaban (Eliquis) 5 mg PO BID [facility] Last Admin: 10/31/18 09:44 Dose: 5 mg Ascorbic Acid (Vitamin C) 1,000 mg PO DAILY [facility] Last Admin: 10/31/18 09:43 Dose: 1,000 mg Aspirin (Ecotrin) 81 mg PO HS [facility] Last Admin: 10/30/18 21:32 Dose: 81 mg Atorvastatin Calcium (Lipitor) 40 mg PO HS [facility] Last Admin: 10/30/18 21:33 Dose: 40 mg Calcium/Vitamin D (Oscal With D 250/125 Mg) 2 tab PO BID [facility] Last Admin: 10/31/18 09:45 Dose: 2 tab Collagenase (Santyl Oint) 1 applicatio TOPICAL DAILY [facility] Last Admin: 10/31/18 09:32 Dose: Not Given Folic Acid (Folic Acid) 1 mg PO DAILY [facility] Last Admin: 10/31/18 09:44 Dose: 1 mg Gabapentin (Neurontin) 100 mg PO TID [facility] Last Admin: 10/31/18 17:43 Dose: 100 mg Hydromorphone HCl (Dilaudid Pf Inj) 0.5 mg IV.PUSH Q8H PRN PRN Reason: BREAKTHROUGH PAIN Last Admin: 10/31/18 12:22 Dose: 0.5 mg Hydroxychloroquine Sulfate (Plaquenil) 200 mg PO BID [facility] Last Admin: 10/31/18 09:44 Dose: 200 mg Pharmacy Profile Note (Vancomycin Consult Pharmacy) 0 mls @ 0 mls/hr OTHER UNSCH [facility] Vancomycin HCl 1,250 mg/ (Sodium Chloride) 262.5 mls @ 262.5 mls/hr IV.SIG Q24H [facility] Last Admin: 10/31/18 17:44 Dose: 150 mls/hr Piperacillin/Tazobactam/Dextrose (Zosyn 4.5 Gm Premix) 4.5 gm in 100 mls @ 200 mls/hr IV.SIG Q8H [facility] Last Infusion: 10/31/18 18:42 Dose: 200 mls/hr Lactobacillus Acidophilus (Lactinex) 1 tab PO TID [facility] Last Admin: 10/31/18 17:43 Dose: 1 tab Lorazepam (Ativan) 1 mg PO Q6H PRN PRN Reason: ANXIETY Last Admin: 10/31/18 15:21 Dose: 1 mg Magnesium Oxide (Mag-Ox) 400 mg PO DAILY [facility] Last Admin: 10/31/18 09:43 Dose: 400 mg Meloxicam (Mobic) 15 mg PO DAILY@1800 [facility] Last Admin: 02/16/19 17:06 Dose: 15 mg Methotrexate (Rheumatrex) 20 mg PO Q7D [facility] Last Admin: 10/28/18 09:34 Dose: 20 mg Mupirocin (Bactroban 2% Oint) 1 applicatio TOPICAL BID [facility] Last Admin: 10/31/18 09:32 Dose: Not Given Naloxone HCl (Narcan Inj) 0.4 mg IV.PUSH PRN PRN PRN Reason: SEE LABEL COMMENTS Ondansetron HCl (Zofran Odt) 4 mg PO Q6H PRN PRN Reason: nausea and vomiting Last Admin: 10/31/18 09:55 Dose: 4 mg Pantoprazole Sodium (Protonix) 40 mg PO DAILY [facility] Last Admin: 10/31/18 09:42 Dose: 40 mg Polysaccharide Iron Complex (Nu-Iron) 150 mg PO BID [facility] Last Admin: 10/31/18 09:45 Dose: 150 mg Senna/Docusate Sodium (Avril-Colace) 1 tab PO BID [facility] Last Admin: 10/31/18 09:42 Dose: 1 tab Sodium Chloride (Ns Flush) 2 ml IV.FLUSH BID [facility] Last Admin: 10/31/18 09:50 Dose: 2 ml Sodium Chloride (Ns Flush) 2 ml IV.FLUSH PRN PRN PRN Reason: FLUSH AFTER USING IV ACCESS Zinc Sulfate (Zinc-220) 220 mg PO DAILY [facility] Last Admin: 10/31/18 09:55 Dose: 220 mg Allergies Allergy/AdvReac Type Severity Reaction Status Date / Time No Known Allergies Allergy Verified 10/23/18 13:46 Home Medications Medication Instructions Recorded Confirmed Type aspirin [Aspir-Low] 81 mg PO HS 07/22/18 10/23/18 History folic acid 1 mg PO DAILY 07/22/18 10/23/18 History hydrocodone-acetaminophen 1 tab PO Q6H PRN 07/22/18 10/23/18 History hydroxychloroquine 200 mg PO BID 07/22/18 10/23/18 History magnesium 500 mg PO QAM 07/22/18 10/23/18 History meloxicam 15 mg PO QPM 07/22/18 10/23/18 History methotrexate sodium 8 mg PO QWEEK 07/22/18 10/23/18 History Results - Labs CBC & Chem 7: 10/29/18 10:23 10/31/18 10:44 Laboratory Results - last 24 hr 10/31/18 10:44 Creatinine 1.13 Estimated GFR 64 L - Imaging Impressions Lower Extremity Angiography 10/25/18 19:32 CONCLUSION: 1. Uncomplicated embolectomy and angioplasty of the right popliteal artery. Foot MRI 10/31/18 00:00 CONCLUSION: 1. Ill-defined soft tissue edema and enhancement of the fifth toe indicating cellulitis in the proper clinical setting. 2. Focal bony edema and enhancement about the proximal interphalangeal joint of the fifth toe but no corresponding abnormality on the precontrast T1- weighted images. Findings indicate either reactive bony change from adjacent soft tissue infection or early osteomyelitis. - Procedures right external iliac and common femoral endarterectomy patch angioplasty, right femoral to distal bypass with in situ saphenous vein and a right popliteal endarterectomy 10/26/18 Assessment and Plan - Plan 68 year old with right foot medial ulceration, right distal tip second digit ulceration, right fifth digit ulceration Discussed MRI results with patient, MRI inconclusive for definitive osteomyelitis but does show potentially some signs for early osteomyelitis Discussed conservative care versus surgical intervention for osteomyelitis Will sign out care to Dr. Morgan Per Dr. Morgan patient will be taken to the OR tomorrow for debridement of bone and ulcers to right foot
[2018-11-01] MEDS: Piperacil/Tazo 4.5 GM Premix 4.5 GM/100 ML BAG IV.SIG SCH ×4 (00:12→23:20)
[2018-11-01] MEDS: Gabapentin 100 MG Capsule PO SCH ×3 (09:25→17:45)
[2018-11-01] MEDS: Ascorbic Acid 500 MG Tablet PO SCH (09:25)
[2018-11-01] MEDS: Calcium/Vitamin D 250/125 MG Tablet PO SCH ×2 (09:25→23:12)
[2018-11-01] MEDS: Lactobacillus Acidophilus/L. Spores Tablet PO SCH ×3 (09:25→17:45)
[2018-11-01] MEDS: Hydroxychloroquine 200 MG Tablet PO SCH ×2 (09:26→23:12)
[2018-11-01] MEDS: Senna/Docusate Sodium 8.6/50 MG Tablet PO SCH (09:26)
[2018-11-01] MEDS: Folic Acid 1 MG Tablet PO SCH (09:26)
[2018-11-01] MEDS: Magnesium Oxide 400 MG Tablet PO SCH (09:26)
[2018-11-01] MEDS: Polysaccharide Iron Complex 150 MG Capsule PO SCH ×2 (09:26→23:12)
[2018-11-01] MEDS: Collagenase Oint 30 GM Tube TOPICAL SCH (09:27)
[2018-11-01] MEDS: LORazepam 1 MG Tablet PO PRN ×2 (09:36→17:45)
--- NOTE | 2018-11-01 11:50 | P.PNIM ---
Subjective Interval history: Follow-up right foot wounds and infection. Awaiting surgery no new complaint Physical Exam Vital signs: Vital Signs 10/31/18 12:12 10/31/18 17:50 10/31/18 20:00 Temperature 98.1 F 98.1 F 98.0 F Pulse Rate 94 H 70 89 Respiratory Rate 22 18 20 Blood Pressure 120/79 120/61 129/61 Pulse Oximetry 98 98 96 11/01/18 00:00 11/01/18 03:15 11/01/18 04:00 Temperature 98.8 F 98.7 F Pulse Rate 73 77 Respiratory Rate 20 18 20 Blood Pressure 117/59 L 124/58 L Pulse Oximetry 96 98 11/01/18 08:00 Temperature 97.9 F Pulse Rate 68 Respiratory Rate 18 Blood Pressure 117/56 L Pulse Oximetry 96 Intake & Output 10/31/18 11/01/18 11/01/18 18:59 06:59 18:59 Intake Total 0 / 0 462.5 / 462.5 Balance 0 / 0 462.5 / 462.5 Intake: IV 0 / 0 462.5 / 462.5 Zosyn 4.5 GM Premix 4.5 gm In 0 / 0 200 / 200 100 ml @ 200 mls/hr IV.SIG Q8H DEMETRIUS Rx#:[id number] Vancomycin Inj 1,250 MG In NS 262.5 / 262.5 Inj 250 ML @ 262.5 mls/hr IV. SIG Q24H DEMETRIUS Rx#:[id number] Other: # Voids 4 Narrative: GENERAL: Well-developed and well-nourished SKIN: Warm and dry. CARDIOVASCULAR: Regular rate and rhythm without murmurs, gallops, or rubs. RESPIRATORY: Breath sounds equal bilaterally. No accessory muscle use. GASTROINTESTINAL: Abdomen soft, non-tender, nondistended. Ostomy bag in place MUSCULOSKELETAL: No cyanosis, or edema. Right foot with black ulceration 3 x 4 cm with improved erythema and edema to the right second toe tip with ulceration , swelling and warmth. Fifth toe with deepening ulceration with a smaller ulcer inferior to it. Left foot with dopplerable pulses BACK: Nontender without obvious deformity. No CVA tenderness. Urinary Catheter Management Indwelling Urethral Catheter: Cath placed during this visit: yes, but has since been removed by the nurse Reason for continuing: Decision to DC catheter Insertion date: 10/25/18 Insertion time: 13:18 Removal date: 10/26/18 Removal time: 15:30 Results Labs CBC & Chem 7: 10/29/18 10:23 10/31/18 10:44 Imaging Imaging: Impressions Lower Extremity Angiography 10/25/18 19:32 CONCLUSION: 1. Uncomplicated embolectomy and angioplasty of the right popliteal artery. Procedures Procedures: right external iliac and common femoral endarterectomy patch angioplasty, right femoral to distal bypass with in situ saphenous vein and a right popliteal endarterectomy 10/26/18 Assessment and Plan Plan SEPSIS resolved CELLULITIS R FOOT w ACUTE R LIMB ISCHEMIAcont abx (IV vancomycin) as patient is immunosuppressed consider holding Plaquenil and methotrexate and has such severe ischemia high risk on infection, cont wound care. Podiatry recommends wound care and continue antibiotic. IV Zosyn has been added. In light of MRI results patient will be taken to or today for debridement. PT recommends home care. Pain management counseled regarding narcotic discontinued S[employer]W [employer] PVD severe right external iliac, common femoral artery superficial artery popliteal artery occlusion with distal severe stenosis status post right external iliac and common femoral endarterectomy patch angioplasty, right femoral to distal bypass with in situ saphenous vein and a right popliteal endarterectomy10/26/18. cont asa, statin, apixaban. Cleared for discharge by vascular surgery AKD on ckd stage 3 w metabolic acidosis and hyponatremia better post ivf PERFORATED DIVERTICULOSIS w PERITONITIS and RETROPERITONEAL ABSCESS hx (w MDOR ,VRE MRSA MUKUL, KLEBSIELLA post radio rigger iv abx) w ostomy stable RA on chronic plaquenil,mtx immunocompromised, cont pain control DYSLIPIDEMIA on lipitor ANEMIA chronic and acute post op blood loss - mvi, iron OSTEOPENIA chronic cmporession fx L3, LLL PULMONARY NODULE - found on ct, fu ct in 6 mo CAD w stent and CABG hx cont asa VIT D def - vit d supplement dvt prophylaxis - eliquis dispo -home health care Discharge pending ID and podiatry clearance Progress Note: Quality VTE Deep Vein Thrombosis/Pulmonary Embolism Present on Admission: No
[2018-11-01] MEDS ORDERED: Metoprolol Tartrate 25 MG Tablet PO ONE (12:05)
[2018-11-01] MEDS ORDERED: Chlorhexidine Gluconate 2% 1 Pack (2 Cloths) TOPICAL ONE (12:05)
[2018-11-01] MEDS ORDERED: Sodium Chlor 0.9% Inj 500 ML IV.SIG SCH (13:00)
--- NOTE | 2018-11-01 13:26 | P.PNID ---
Subjective Remarks: Mr. Moreira is a 68-year-old male with past medical history significant for rheumatoid arthritis on methotrexate, history of diverticulitis , history of colonic perforation and retroperitoneal abscess status post surgical intervention and diverting ileostomy. Patient grew multiple bacteria during that admission including VRE as well as Sarita glabrata. Patient was treated with oral antibiotics for the bacteria and discharged home on micafungin IV for Sarita glabrata infection using a PICC line. Patient has been following up with Dr. Douglas for the ileostomy. While at his visit he complained of worsening right foot cellulitis and infection which started about 2 weeks prior to this admission. He had bilateral lower extremity swelling which continued to improve to some extent with compression socks but the right ankle swelling persisted. Patient's thinks that the compression socks may have caused undue pressure on the medial aspect of his right ankle leading to the area of ulceration. Due to worsening foot infection including an area of blackening noted on the medial aspect of the right foot. Patient denies any fever or chills but of note patient is immune compromised. Patient did report feeling very fatigued. Patient denies having been told that he has any vascular issues in the past. Overnight events reviewed No fevers No rash No diarrhea Patient reports being seen by again last night. MRI findings dw patient and in room. Antibiotics: Vanco IV Lines: Lines ok Past Medical History: reviewed Allergies/Adverse Reactions: Allergies No Known Allergies Allergy (Verified 10/23/18 13:46) Objective Vital Signs 10/31/18 17:50 10/31/18 20:00 11/01/18 00:00 Temperature 98.1 F 98.0 F 98.8 F Pulse Rate 70 89 73 Respiratory Rate 18 20 20 Blood Pressure 120/61 129/61 117/59 L Pulse Oximetry 98 96 96 11/01/18 03:15 11/01/18 04:00 11/01/18 08:00 Temperature 98.7 F 97.9 F Pulse Rate 77 68 Respiratory Rate 18 20 18 Blood Pressure 124/58 L 117/56 L Pulse Oximetry 98 96 11/01/18 12:00 Temperature 98.4 F Pulse Rate 77 Respiratory Rate 16 Blood Pressure 116/60 Pulse Oximetry 98 Intake & Output 10/31/18 11/01/18 11/01/18 18:59 06:59 18:59 Intake Total 0 / 0 462.5 / 462.5 Balance 0 / 0 462.5 / 462.5 Intake: IV 0 / 0 462.5 / 462.5 Zosyn 4.5 GM Premix 4.5 gm In 0 / 0 200 / 200 100 ml @ 200 mls/hr IV.SIG Q8H DEMETRIUS Rx#:[id number] Vancomycin Inj 1,250 MG In NS 262.5 / 262.5 Inj 250 ML @ 262.5 mls/hr IV. SIG Q24H DEMETRIUS Rx#:[id number] Other: # Voids 4 Lab - Chemistry Results 10/31/18 10:44 Creatinine 1.13 Estimated GFR 64 L Imaging: ITS Impressions Venous Doppler Study 10/23/18 00:00 CONCLUSION: 1. The study is negative for lower extremity deep venous thrombosis. Foot X-Ray 10/23/18 15:33 CONCLUSION: No bone loss is identified. No foreign body identified. Lumbar Spine X-Ray 10/24/18 00:00 CONCLUSION: 1. Age-indeterminate compression deformity involving L3. 10-20% loss of height. 2. Degenerative changes most pronounced at L4-L5. Aorta w/Runoff CTA 10/24/18 13:00 OTHER STRUCTURES: Emphysematous changes within the lung bases. 8 mm nodule within the left lower lobe. Small calcified gallstones within an unremarkable gallbladder. Small nonobstructing renal calculi bilaterally measuring 2 mm. A right lower quadrant ileostomy. A near complete colectomy. Degenerative and scoliotic spine. CONCLUSION: 1. Significant stenosis at the junction of the right external iliac artery and common femoral artery. The rest of the inflow is patent. 2. Both lower extremities show multilevel SFA and popliteal disease including short segment occlusions. Runoff to the feet are via diffusely but mildly diseased trifurcation vessels. 3. 8mm left lower lobe pulmonary nodule. Consider a follow-up CT the chest in 6 months. 4. Cholelithiasis. Lower Extremity Angiography 10/25/18 19:32 CONCLUSION: 1. Uncomplicated embolectomy and angioplasty of the right popliteal artery. Foot MRI 10/31/18 00:00 CONCLUSION: 1. Ill-defined soft tissue edema and enhancement of the fifth toe indicating cellulitis in the proper clinical setting. 2. Focal bony edema and enhancement about the proximal interphalangeal joint of the fifth toe but no corresponding abnormality on the precontrast T1- weighted images. Findings indicate either reactive bony change from adjacent soft tissue infection or early osteomyelitis. Physical Exam: GENERAL: Well-nourished well-developed, not in acute distress SKIN: Cool and dry, no generalized rash HEAD: Atraumatic. Normocephalic. No temporal or scalp tenderness. EYES: Pupils equal round and reactive. Scleral icterus. No injection or drainage. No petechia ENT: Nothing abnormal detected NECK: Trachea midline. Supple, nontender, no meningeal signs. CARDIOVASCULAR: HS audible. RESPIRATORY: Clear to auscultation bilaterally. GASTROINTESTINAL: Abdomen soft nontender. Ileostomy in place. Surgical site intact with no evidence of infection. MUSCULOSKELETAL: Bilateral hand swan-neck deformity, Heberden's nodes noted. Bilateral knee with surgical scars intact with no evidence of infection. Left foot with petechial skin changes noted, today his toes were white and on warming turned pink. Peripheral pulses were palpable but slightly diminished. Right foot with a 3 x 4 cm area of ulceration with blackening of the skin noted on medial aspect of dorsum of foot. 2nd toe on right foot tip with ulceration noted, swelling, warmth and taughtness noted. This is a new finding since yday. 5th toe had a small pin head size area on admission till yday and today it is a size of small pea and appears to be deeper compared to yday. There is another pin head size lesion below it which is new since yday. NEUROLOGICAL: Alert oriented 3. Nonfocal. Psych cooperative IV line sites ok. Assessment and Plan (1) Cellulitis Status: Acute Code(s): L03.90 - Cellulitis, unspecified - Plan Right foot cellulitis Right foot infected ulcer Probable peripheral arterial as well as vascular disease Rheumatoid arthritis on methotrexate Relative immune deficiency Coronary artery disease Bilateral knee with hardware in place prosthetic joints at risk for seeding Recommendations Continue vancomycin IV target trough 10-15 Continue Zosyn IV for possible new PSAE infection as clinically initially was improving. Concern ongoing small vessel disease from RA may be contributing worsening swelling of the foot. aye griffiths RN dw patient and in room who are thankful of care provided. follow intraop path Follow cultures Follow clinical course Plan discussed with patient covering for me this weekend. (1) Cellulitis Qualifiers: Site of cellulitis: extremity Site of cellulitis of extremity: lower extremity Laterality: left Qualified Code(s): L03.116 - Cellulitis of left lower limb
[2018-11-01] MEDS: Vancomycin Inj 1,250 MG in Sodium Chlor 0.9% Inj 250 ML IV.SIG SCH (17:45)
--- NOTE | 2018-11-01 17:54 | P.PNVS ---
Subjective Subjective/Hospital Course: 68-year-old male known to me from previous encounters for left colon perforation. Patient now with cellulitis and edema of the right foot Patient has stigmata of coronary artery disease vascular disease and cardiovascular degenerative changes. Full workup is in progress CTA with runoff ordered We will continue to follow Full consult dictated Thanks Misael 10/25/2018 The patient has palpable bilateral femoral pulses weaker right than left. Dopplerable popliteal pulses. Right dorsalis pedis and posterior tibial arteries are present and Doppler +1 and on the left side both vessels are present and Doppler +2. The difference is probably due to the swelling of the right foot more so than any decrease to the blood flow in the foot area. Based on this exam patient probably has some degree of proximal disease in the iliac arteries and then likely either occlusion or stenosis of both SFAs. Clinically blood flow to the right leg is more compromised than to the left leg and this would be more of a regular pattern then diabetic pattern but we will see what CTA with runoff shows. I have examined the patient in the office and then in the hospital. Right foot indeed is swollen, mainly in the midfoot area with dorsum of the foot more prominently, edematous, rubor extending from the metatarsophalangeal area all the way up to the ankle. The patient has abrasion on the side of the foot as well as tiny ulcer on the fifth toe. CTA with runoff confirms the above picture somewhat. Patient has fairly tight right iliac stenosis common femoral artery stenosis and then Rady nearly occluded SFA on the right. Popliteal is patent however only just above the trifurcation Beyond trifurcation patient has runoff and vessels are sclerotic. Based on all of the above patient will need right inflow and outflow reconstruction with combination of stents and bypass. Will take patient to the operating room in next 24-48 hours. 10/26/2018 Status post Right external iliac and common femoral endarterectomy and bovine patch angioplasty Right femoral to distal bypass with in situ saphenous vein Right popliteal endarterectomy Right popliteal and distal catheter suction penumbra embolectomy Arteriogram x4 Incisions are clean and dry and patient has a bounding pulse in the saphenous vein graft Excellent posterior tibial and dorsalis pedis pulses and foot is nice and warm Patient can transfer to floor DC heparin start on Eliquis DC [place] DC IV fluids 10/27/2018 Incisions are clean and dry Patient is excellent distal dopplerable pulses and palpable pulse in the saphenous vein in situ graft Should remain on Eliquis Patient was transferred from ICU to medical floor and should definitely be on the surgical floor. I have discussed this with bed placement and nursing office and requested transfer to surgical floor From my point patient can be discharged anytime if okay with infectious disease specialist Follow-up with me in about 2-3 weeks 10/28/2018 Doing very well Excellent flow in the in situ graft Strong +2 dorsalis pedis posterior tibial pulses Incisions are clean and dry Patient doing very well at this time Nothing to add to care from vascular point 10/29/2018 Patient doing well at this time Excellent palpable pulse in the in situ graft and strong dopplerable pulses in the foot Incisions are clean and dry Patient can be discharged from my point any time and I will see him in the office for follow-up at which time we will determine the timing of surgery for reversal of diverting ileostomy 10/31/2018 Patient doing very well Leg is warm and well-perfused and proximal distal pulses are intact patient has a great Palpable pulse in the in situ graft and strong dopplerable dorsalis pedis and posterior tibial Apparently patient had some blanching of his greater toe when he was seen by the infectious disease specialist and I discussed this with her but by the time I got there toe appears to be nice and red so patient might have had some vasospasm and is clearly affected by small vessel disease however no limb threatening or toe threatening ischemia is present at this time Necrotic ulcer of the medial aspect of the hallux addressed by podiatry Podiatry and ID consults greatly appreciated Patient can be discharged anytime 11/01/2018 Patient doing well at this time fem-distal in situ graft is widely patent and palpable Patient is superb right dorsalis pedis and posterior tibial pulse Awaiting debridement by podiatry I discussed the situation of the left foot which may become a problem in the future. Patient now has somewhat pale distal toes and will majority of this is small vessel disease it is indicative of decreased capillary refill and possible problems in the near future On the left side patient also has occlusion of the SFA and proximal popliteal artery with reconstitution of the distal popliteal just underneath the knee replacement with diseased trifurcation vessels however patent down to the foot At this point is certainly would avoid doing any manipulations of the left leg unless absolutely necessary but in the future patient will need left femoral distal bypass as well. Objective Vital Signs / I&O: Vital Signs 10/31/18 20:00 11/01/18 00:00 11/01/18 03:15 Temperature 98.0 F 98.8 F Pulse Rate 89 73 Respiratory Rate 20 20 18 Blood Pressure 129/61 117/59 L Pulse Oximetry 96 96 11/01/18 04:00 11/01/18 08:00 11/01/18 12:00 Temperature 98.7 F 97.9 F 98.4 F Pulse Rate 77 68 77 Respiratory Rate 20 18 16 Blood Pressure 124/58 L 117/56 L 116/60 Pulse Oximetry 98 96 98 11/01/18 16:00 Temperature 98.0 F Pulse Rate 74 Respiratory Rate 18 Blood Pressure 121/57 L Pulse Oximetry 97 Intake & Output 10/31/18 11/01/18 11/01/18 18:59 06:59 18:59 Intake Total 0 / 0 462.5 / 462.5 100 / 100 Balance 0 / 0 462.5 / 462.5 100 / 100 Intake: IV 0 / 0 462.5 / 462.5 100 / 100 Zosyn 4.5 GM Premix 4.5 gm In 0 / 0 200 / 200 100 / 100 100 ml @ 200 mls/hr IV.SIG Q8H DEMETRIUS Rx#:[id number] Vancomycin Inj 1,250 MG In NS 262.5 / 262.5 Inj 250 ML @ 262.5 mls/hr IV. SIG Q24H DEMETRIUS Rx#:[id number] Other: # Voids 4 Impressions Lower Extremity Angiography 10/25/18 19:32 CONCLUSION: 1. Uncomplicated embolectomy and angioplasty of the right popliteal artery. Foot MRI 10/31/18 00:00 CONCLUSION: 1. Ill-defined soft tissue edema and enhancement of the fifth toe indicating cellulitis in the proper clinical setting. 2. Focal bony edema and enhancement about the proximal interphalangeal joint of the fifth toe but no corresponding abnormality on the precontrast T1- weighted images. Findings indicate either reactive bony change from adjacent soft tissue infection or early osteomyelitis.
[2018-11-01] MEDS ORDERED: Bupivacaine PF 0.25% Inj 30 ML Vial ONE (21:02)
--- NOTE | 2018-11-01 21:15 | P.BOP ---
- Preoperative Diagnosis (1) Osteomyelitis of toe of right foot (2) Ulcer of right foot with necrosis of muscle - Postoperative Diagnosis (1) Osteomyelitis of toe of right foot (2) Ulcer of right foot with necrosis of muscle Date of procedure: 11/01/18 Procedure: 1. amputation right 5th toe with debridement of necrotic bone 2. excisional debridement of ulcer right medial foot Right 5th toe addressed and two semi-elliptical incisions made encompassing 5th toe and disarticulated at metatarsophalangeal joint level. No purulence noted. Minimal bleeding noted at this level. Bone from 5th metatarsal head sent for bone biopsy. Irrigation and primary closure with 2-0 nylon suture. Right medial foot ulcer 2.7cm diameter with necrotic eschar noted. Excisional debridement performed of necrotic tissue with #15 blade down to level of muscle and tendon and subcutaneous tissue. Dressing with xeroform, 4x4, cast padding, abd, mild stella with no compression applied. No tourniquet utilized. 10mL 0.25% marcaine plain DISPOSITION: Weightbearing as tolerated right foot in surgical shoe No further surgery indicated at this time. Will follow outpatient for further wound care and/or grafting. Ok with discharge home when cleared by primary team and ID. Keep surgical bandage clean, dry, intact until next week. If still in-house at beginning of next week, will change bandage before discharge. Anesthesia: MAC, local (10mL 0.5% marcaine plain) Surgeon: Rachel Morgan DPM [id number] Architect: staff Estimated blood loss (mL): 10 Pathology: other (1. right 5th toe, 2. bone biopsy right 5th metatarsal head, 3. Culture right lateral foot, 4, culture right medial foot.) Condition: stable Disposition: PACU
[2018-11-01] MEDS ORDERED: fentaNYL Citrate Inj 100 MCG/2 ML Ampul ONE ×2 (22:12)
--- NOTE | 2018-11-01 23:09 | XR ---
EXAM DATE: 11/01/2018 11:02 PM EST AGE/SEX: 68 years / Male INDICATIONS: Post op right 5th digit amputation. CLINICAL DATA: This is the patient's initial encounter. Patient reports that signs and symptoms have been present for 1 day and indicates a pain score of 2/10. MEDICAL/SURGICAL HISTORY: . Hypertension. . CABG. Ileostomy, rotator cuff, bilateral knee surg riki COMPARISON: No prior exams available for comparison. FINDINGS: 3 views of the right foot show amputation of the fifth toe at the metatarsal head level. No radiopaqu e foreign body observed. Remaining bony structures are intact. Osteopenia noted. Atherosclerotic calc ifications. CONCLUSION: Transmetatarsal amputation of the fifth toe. Electronically signed by: Glenn Snell MD Board Certified Radiologist 11/01/2018 11:07 PM EST
[2018-11-02] MEDS: Senna/Docusate Sodium 8.6/50 MG Tablet PO SCH ×3 (00:49→21:56)
[2018-11-02] MEDS: HYDROmorphone PF Inj 0.5 MG/0.5 ML Syringe IV.PUSH PRN ×5 (00:57→21:47)
[2018-11-02 06:56] LABS: Baso # (Auto) 0.1 th/mm3 (0.0-0.2); Eos # (Auto) 0.2 th/mm3 (0.0-0.4); Eos % (Auto) 2.3 % (0.0-4.0); Hematocrit 24.6 % (39.0-51.0); Hemoglobin 8.3 gm/dL (13.0-17.0); Lymph # (Auto) 1.3 th/mm3 (1.0-4.8); Lymph % (Auto) 16.7 % (9.0-44.0); Mean Corpuscular HGB Conc 33.8 % (32.0-36.0); Mean Corpuscular Hemoglobin 31.9 pg (27.0-34.0); Mean Corpuscular Volume 94.4 fL (80.0-100.0); Mean Platelet Volume 7.1 fL (7.0-11.0); Mono # (Auto) 0.9 th/mm3 (0.0-0.9); Mono % (Auto) 11.2 % (0.0-8.0); Neut # (Auto) 5.5 th/mm3 (1.8-7.7); Neut % (Auto) 68.8 % (16.0-70.0); Platelet Count 329 th/mm3 (150-450); Red Cell Distribution Width 16.8 % (11.6-17.2)
[2018-11-02] MEDS: Piperacil/Tazo 4.5 GM Premix 4.5 GM/100 ML BAG IV.SIG SCH ×3 (07:16→23:24)
[2018-11-02 08:44] LABS: Calcium 8.9 mg/dL (8.5-10.1); Carbon Dioxide 27.7 meq/L (21.0-32.0); Magnesium 2.2 mg/dL (1.5-2.5); Potassium 4.4 meq/L (3.5-5.1)
[2018-11-02] MEDS: Folic Acid 1 MG Tablet PO SCH (09:20)
[2018-11-02] MEDS: Lactobacillus Acidophilus/L. Spores Tablet PO SCH ×3 (09:20→17:57)
[2018-11-02] MEDS: Hydroxychloroquine 200 MG Tablet PO SCH ×2 (09:20→20:27)
[2018-11-02] MEDS: Ascorbic Acid 500 MG Tablet PO SCH (09:21)
[2018-11-02] MEDS: Calcium/Vitamin D 250/125 MG Tablet PO SCH ×2 (09:21→20:27)
[2018-11-02] MEDS: Magnesium Oxide 400 MG Tablet PO SCH (09:21)
[2018-11-02] MEDS: Gabapentin 100 MG Capsule PO SCH ×3 (09:21→17:57)
[2018-11-02] MEDS: Polysaccharide Iron Complex 150 MG Capsule PO SCH ×2 (09:22→20:27)
--- NOTE | 2018-11-02 10:46 | P.PNIM ---
Subjective Interval history: Follow-up osteomyelitis of the right fifth toe. Complains of increased foot pain unable to sleep last night. Physical Exam Vital signs: Vital Signs 11/01/18 12:00 11/01/18 16:00 11/01/18 20:00 Temperature 98.4 F 98.0 F 97.9 F Pulse Rate 77 74 74 Respiratory Rate 16 18 12 Blood Pressure 116/60 121/57 L 116/69 Pulse Oximetry 98 97 98 11/01/18 22:00 11/01/18 22:15 11/01/18 22:35 Temperature 98.1 F 98.1 F Pulse Rate 80 79 Respiratory Rate 20 20 Blood Pressure 107/65 146/71 H Pulse Oximetry 99 100 94 L 11/01/18 23:40 11/02/18 04:00 11/02/18 07:37 Temperature 98 F 97.8 F 97.7 F Pulse Rate 80 78 69 Respiratory Rate 12 12 18 Blood Pressure 124/69 111/68 129/60 Pulse Oximetry 95 98 100 Intake & Output 11/01/18 11/02/18 11/02/18 18:59 06:59 18:59 Intake Total 100 / 100 962.5 / 962.5 100 / 100 Output Total 275 / 275 Balance 100 / 100 942.5 / 942.5 -175 / -175 Weight 74.3 kg Intake: IV 100 / 100 462.5 / 462.5 100 / 100 Zosyn 4.5 GM Premix 4.5 gm In 100 / 100 200 / 200 100 / 100 100 ml @ 200 mls/hr IV.SIG Q8H [facility] Rx#:[id number] Vancomycin Inj 1,250 MG In NS 262.5 / 262.5 Inj 250 ML @ 262.5 mls/hr IV. SIG Q24H [facility] Rx#:[id number] Anesthesia Amount 500 / 500 Output: Urine 275 / 275 Estimated Blood Loss Other: # Voids 4 Date of Last Bowel Movement 11/01/18 Narrative: GENERAL: Well-developed and well-nourished SKIN: Warm and dry. CARDIOVASCULAR: Regular rate and rhythm without murmurs, gallops, or rubs. RESPIRATORY: Breath sounds equal bilaterally. No accessory muscle use. GASTROINTESTINAL: Abdomen soft, non-tender, nondistended. Ostomy bag in place MUSCULOSKELETAL: No cyanosis, or edema. Right foot with dry dressing BACK: Nontender without obvious deformity. No CVA tenderness. Urinary Catheter Management Indwelling Urethral Catheter: Cath placed during this visit: yes, but has since been removed by the nurse Reason for continuing: Decision to DC catheter Insertion date: 10/25/18 Insertion time: 13:18 Removal date: 10/26/18 Removal time: 15:30 Results Labs CBC & Chem 7: 11/02/18 06:27 11/02/18 07:19 Labs: Microbiology 11/01/18 22:25 Wound - Foot Fungal Smear - Final No fungal elements seen 11/01/18 22:25 Wound - Foot Fungal Smear - Final No fungal elements seen 11/01/18 22:25 Wound - Foot Gram Stain - Final 11/01/18 22:25 Wound - Foot Gram Stain - Final Imaging Imaging: Impressions Foot X-Ray 11/01/18 00:00 CONCLUSION: Transmetatarsal amputation of the fifth toe. Procedures Procedures: right external iliac and common femoral endarterectomy patch angioplasty, right femoral to distal bypass with in situ saphenous vein and a right popliteal endarterectomy 10/26/18 Date of procedure: 11/01/18 Procedure: 1. amputation right 5th toe with debridement of necrotic bone 2. excisional debridement of ulcer right medial foot Assessment and Plan Plan SEPSIS resolved Right foot infection with osteomyelitis right fifth toe s/p amputation right 5th toe with debridement of necrotic bone and excisional debridement of ulcer right medial foot. Stable cont abx (IV vancomycin and Zosyn) as patient is immunosuppressed consider holding Plaquenil and methotrexate and has such severe ischemia high risk on infection, cont wound care. PT recommends home care. Patient complains of increased pain post operatively will increase IV Dilaudid counseled regarding narcotic Acute limb ischemia PVD severe right external iliac, common femoral artery superficial artery popliteal artery occlusion with distal severe stenosis status post right external iliac and common femoral endarterectomy patch angioplasty, right femoral to distal bypass with in situ saphenous vein and a right popliteal endarterectomy10/26/18. Cont asa, statin, apixaban. Cleared for discharge by vascular surgery AKD on ckd stage 3 w metabolic acidosis and hyponatremia better post ivf PERFORATED DIVERTICULOSIS w PERITONITIS and RETROPERITONEAL ABSCESS hx (w MDOR ,VRE MRSA MUKUL, KLEBSIELLA post intermediate iv abx) w ostomy stable RA on chronic plaquenil,mtx immunocompromised, cont pain control DYSLIPIDEMIA on lipitor ANEMIA chronic and acute post op blood loss - mvi, iron OSTEOPENIA chronic cmporession fx L3, LLL PULMONARY NODULE - found on ct, fu ct in 6 mo CAD w stent and CABG hx cont asa VIT D def - vit d supplement dvt prophylaxis - eliquis dispo -home health care Discharge pending ID clearance(await path results) and pain managed with oral medication Progress Note: Quality VTE Deep Vein Thrombosis/Pulmonary Embolism Present on Admission: No
[2018-11-02] MEDS: LORazepam 1 MG Tablet PO PRN ×2 (12:20→23:26)
--- NOTE | 2018-11-02 12:56 | P.PNVS ---
Subjective Subjective/Hospital Course: 68-year-old male known to me from previous encounters for left colon perforation. Patient now with cellulitis and edema of the right foot Patient has stigmata of coronary artery disease vascular disease and cardiovascular degenerative changes. Full workup is in progress CTA with runoff ordered We will continue to follow Full consult dictated Thanks Misael 10/25/2018 The patient has palpable bilateral femoral pulses weaker right than left. Dopplerable popliteal pulses. Right dorsalis pedis and posterior tibial arteries are present and Doppler +1 and on the left side both vessels are present and Doppler +2. The difference is probably due to the swelling of the right foot more so than any decrease to the blood flow in the foot area. Based on this exam patient probably has some degree of proximal disease in the iliac arteries and then likely either occlusion or stenosis of both SFAs. Clinically blood flow to the right leg is more compromised than to the left leg and this would be more of a regular pattern then diabetic pattern but we will see what CTA with runoff shows. I have examined the patient in the office and then in the hospital. Right foot indeed is swollen, mainly in the midfoot area with dorsum of the foot more prominently, edematous, rubor extending from the metatarsophalangeal area all the way up to the ankle. The patient has abrasion on the side of the foot as well as tiny ulcer on the fifth toe. CTA with runoff confirms the above picture somewhat. Patient has fairly tight right iliac stenosis common femoral artery stenosis and then Rady nearly occluded SFA on the right. Popliteal is patent however only just above the trifurcation Beyond trifurcation patient has runoff and vessels are sclerotic. Based on all of the above patient will need right inflow and outflow reconstruction with combination of stents and bypass. Will take patient to the operating room in next 24-48 hours. 10/26/2018 Status post Right external iliac and common femoral endarterectomy and bovine patch angioplasty Right femoral to distal bypass with in situ saphenous vein Right popliteal endarterectomy Right popliteal and distal catheter suction penumbra embolectomy Arteriogram x4 Incisions are clean and dry and patient has a bounding pulse in the saphenous vein graft Excellent posterior tibial and dorsalis pedis pulses and foot is nice and warm Patient can transfer to floor DC heparin start on Eliquis DC [place] DC IV fluids 10/27/2018 Incisions are clean and dry Patient is excellent distal dopplerable pulses and palpable pulse in the saphenous vein in situ graft Should remain on Eliquis Patient was transferred from ICU to medical floor and should definitely be on the surgical floor. I have discussed this with bed placement and nursing office and requested transfer to surgical floor From my point patient can be discharged anytime if okay with infectious disease specialist Follow-up with me in about 2-3 weeks 10/28/2018 Doing very well Excellent flow in the in situ graft Strong +2 dorsalis pedis posterior tibial pulses Incisions are clean and dry Patient doing very well at this time Nothing to add to care from vascular point 10/29/2018 Patient doing well at this time Excellent palpable pulse in the in situ graft and strong dopplerable pulses in the foot Incisions are clean and dry Patient can be discharged from my point any time and I will see him in the office for follow-up at which time we will determine the timing of surgery for reversal of diverting ileostomy 10/31/2018 Patient doing very well Leg is warm and well-perfused and proximal distal pulses are intact patient has a great Palpable pulse in the in situ graft and strong dopplerable dorsalis pedis and posterior tibial Apparently patient had some blanching of his greater toe when he was seen by the infectious disease specialist and I discussed this with her but by the time I got there toe appears to be nice and red so patient might have had some vasospasm and is clearly affected by small vessel disease however no limb threatening or toe threatening ischemia is present at this time Necrotic ulcer of the medial aspect of the hallux addressed by podiatry Podiatry and ID consults greatly appreciated Patient can be discharged anytime 11/01/2018 Patient doing well at this time fem-distal in situ graft is widely patent and palpable Patient is superb right dorsalis pedis and posterior tibial pulse Awaiting debridement by podiatry I discussed the situation of the left foot which may become a problem in the future. Patient now has somewhat pale distal toes and will majority of this is small vessel disease it is indicative of decreased capillary refill and possible problems in the near future On the left side patient also has occlusion of the SFA and proximal popliteal artery with reconstitution of the distal popliteal just underneath the knee replacement with diseased trifurcation vessels however patent down to the foot At this point is certainly would avoid doing any manipulations of the left leg unless absolutely necessary but in the future patient will need left femoral distal bypass as well. 11/02/2018 Still excellent flow to the right foot status post femoral distal in situ bypass Patient is status post resection of the fifth toe and debridement of the ulcer of the medial aspect of the first toe by Dr. Morgan. Dressing is intact Indeed patient has equally diseased left circulation with occlusion of the SFA and proximal popliteal artery but at this point I would abstain from doing any surgery to the left leg till the right side is healed unless there is an absolute emergency Objective Vital Signs / I&O: Vital Signs 11/01/18 16:00 11/01/18 20:00 11/01/18 22:00 Temperature 98.0 F 97.9 F 98.1 F Pulse Rate 74 74 80 Respiratory Rate 18 12 20 Blood Pressure 121/57 L 116/69 107/65 Pulse Oximetry 97 98 99 11/01/18 22:15 11/01/18 22:35 11/01/18 23:40 Temperature 98.1 F 98 F Pulse Rate 79 80 Respiratory Rate 20 12 Blood Pressure 146/71 H 124/69 Pulse Oximetry 100 94 L 95 11/02/18 04:00 11/02/18 07:37 11/02/18 12:00 Temperature 97.8 F 97.7 F 97.9 F Pulse Rate 78 69 106 H Respiratory Rate 12 18 20 Blood Pressure 111/68 129/60 142/70 H Pulse Oximetry 98 100 93 L 11/02/18 12:17 Temperature Pulse Rate Respiratory Rate 8 L Blood Pressure Pulse Oximetry Intake & Output 11/01/18 11/02/18 11/02/18 18:59 06:59 18:59 Intake Total 100 / 100 962.5 / 962.5 100 / 100 Output Total 475 / 475 Balance 100 / 100 942.5 / 942.5 -375 / -375 Weight 74.3 kg Intake: IV 100 / 100 462.5 / 462.5 100 / 100 Zosyn 4.5 GM Premix 4.5 gm In 100 / 100 200 / 200 100 / 100 100 ml @ 200 mls/hr IV.SIG Q8H [facility] Rx#:[id number] Vancomycin Inj 1,250 MG In NS 262.5 / 262.5 Inj 250 ML @ 262.5 mls/hr IV. SIG Q24H [facility] Rx#:[id number] Anesthesia Amount 500 / 500 Output: Urine 475 / 475 Estimated Blood Loss 20 / 20 Other: # Voids 4 Date of Last Bowel Movement 11/01/18 Laboratory Results - last 24 hr 11/02/18 11/02/18 06:27 07:19 WBC 8.0 RBC 2.60 L Hgb 8.3 L Hct 24.6 L MCV 94.4 MCH 31.9 MCHC 33.8 RDW 16.8 Plt Count 329 MPV 7.1 Neut % (Auto) 68.8 Lymph % (Auto) 16.7 [place] % (Auto) 11.2 H Eos % (Auto) 2.3 Baso % (Auto) 1.0 Neut # (Auto) 5.5 Lymph # (Auto) 1.3 [place] # (Auto) 0.9 Eos # (Auto) 0.2 Baso # (Auto) 0.1 WBC Differential . Differential Comment Auto diff final Sodium 142 Potassium 4.4 Chloride 106 Carbon Dioxide 27.7 Anion Gap 8 BUN 16 Creatinine 1.11 Estimated GFR 66 L Random Glucose 66 L Calcium 8.9 Magnesium 2.2 Microbiology 11/01/18 22:25 Fungal Smear - Final Wound - Foot No fungal elements seen 11/01/18 22:25 Fungal Smear - Final Wound - Foot No fungal elements seen 11/01/18 22:25 Gram Stain - Final Wound - Foot 11/01/18 22:25 Gram Stain - Final Wound - Foot Impressions Lower Extremity Angiography 10/25/18 19:32 CONCLUSION: 1. Uncomplicated embolectomy and angioplasty of the right popliteal artery. Foot X-Ray 11/01/18 00:00 CONCLUSION: Transmetatarsal amputation of the fifth toe.
--- NOTE | 2018-11-02 16:28 | P.PNPOD ---
Physical Exam Vital signs: Vital Signs 11/01/18 20:00 11/01/18 22:00 11/01/18 22:15 Temperature 97.9 F 98.1 F 98.1 F Pulse Rate 74 80 79 Respiratory Rate 12 20 20 Blood Pressure 116/69 107/65 146/71 H Pulse Oximetry 98 99 100 11/01/18 22:35 11/01/18 23:40 11/02/18 04:00 Temperature 98 F 97.8 F Pulse Rate 80 78 Respiratory Rate 12 12 Blood Pressure 124/69 111/68 Pulse Oximetry 94 L 95 98 11/02/18 07:37 11/02/18 12:00 11/02/18 12:17 Temperature 97.7 F 97.9 F Pulse Rate 69 106 H Respiratory Rate 18 20 8 L Blood Pressure 129/60 142/70 H Pulse Oximetry 100 93 L 11/02/18 16:00 Temperature 98 F Pulse Rate 80 Respiratory Rate 18 Blood Pressure 123/70 Pulse Oximetry 95 Intake & Output 11/01/18 11/02/18 11/02/18 18:59 06:59 18:59 Intake Total 100 / 100 962.5 / 962.5 100 / 100 Output Total 475 / 475 Balance 100 / 100 942.5 / 942.5 -375 / -375 Weight 74.3 kg Intake: IV 100 / 100 462.5 / 462.5 100 / 100 Zosyn 4.5 GM Premix 4.5 gm In 100 / 100 200 / 200 100 / 100 100 ml @ 200 mls/hr IV.SIG Q8H [facility] Rx#:[id number] Vancomycin Inj 1,250 MG In NS 262.5 / 262.5 Inj 250 ML @ 262.5 mls/hr IV. SIG Q24H [facility] Rx#:[id number] Anesthesia Amount 500 / 500 Output: Urine 475 / 475 Estimated Blood Loss Other: # Voids 4 Date of Last Bowel Movement 11/01/18 11/01/18 Medications and Allergies Active Medications: Active Medications Acetaminophen (Tylenol) 650 mg PO Q6H PRN PRN Reason: FOR FEVER 101 AND HIGHER Hydrocodone Bitart/Acetaminophen ([place] 10/325) 1 tab PO Q4H PRN PRN Reason: PAIN 1-10 Last Admin: 11/02/18 12:17 Dose: 1 tab Apixaban (Eliquis) 5 mg PO BID [facility] Last Admin: 10/31/18 21:58 Dose: Not Given Ascorbic Acid (Vitamin C) 1,000 mg PO DAILY [facility] Last Admin: 11/02/18 09:21 Dose: 1,000 mg Aspirin (Ecotrin) 81 mg PO [facility] Last Admin: 10/31/18 21:58 Dose: Not Given Atorvastatin Calcium (Lipitor) 40 mg PO HS [facility] Last Admin: 11/01/18 23:11 Dose: 40 mg Calcium/Vitamin D (Oscal With D 250/125 Mg) 2 tab PO BID [facility] Last Admin: 11/02/18 09:21 Dose: 2 tab Collagenase (Santyl Oint) 1 applicatio TOPICAL DAILY [facility] Last Admin: 11/01/18 09:27 Dose: Not Given Folic Acid (Folic Acid) 1 mg PO DAILY [facility] Last Admin: 11/02/18 09:20 Dose: 1 mg Gabapentin (Neurontin) 100 mg PO TID [facility] Last Admin: 11/02/18 12:17 Dose: 100 mg Hydromorphone HCl (Dilaudid Pf Inj) 0.5 mg IV.PUSH Q4H PRN PRN Reason: BREAKTHROUGH PAIN Last Admin: 11/02/18 13:32 Dose: 0.5 mg Hydroxychloroquine Sulfate (Plaquenil) 200 mg PO BID [facility] Last Admin: 11/02/18 09:20 Dose: 200 mg Pharmacy Profile Note (Vancomycin Consult Pharmacy) 0 mls @ 0 mls/hr OTHER UNSCH [facility] Vancomycin HCl 1,250 mg/ (Sodium Chloride) 262.5 mls @ 262.5 mls/hr IV.SIG Q24H [facility] Last Infusion: 11/01/18 19:39 Dose: Infused Piperacillin/Tazobactam/Dextrose (Zosyn 4.5 Gm Premix) 4.5 gm in 100 mls @ 200 mls/hr IV.SIG Q8H [facility] Last Admin: 11/02/18 15:52 Dose: 100 mls/hr Sodium Chloride (Ns Inj) 500 mls @ 30 mls/hr IV.SIG .Q10H [facility] Last Admin: 11/01/18 23:22 Dose: Not Given Lactobacillus Acidophilus (Lactinex) 1 tab PO TID [facility] Last Admin: 11/02/18 12:17 Dose: 1 tab Lorazepam (Ativan) 1 mg PO Q6H PRN PRN Reason: ANXIETY Last Admin: 11/02/18 12:20 Dose: 1 mg Magnesium Oxide (Mag-Ox) 400 mg PO DAILY [facility] Last Admin: 11/02/18 09:21 Dose: 400 mg Meloxicam (Mobic) 15 mg PO DAILY@1800 [facility] Last Admin: 10/26/18 17:06 Dose: 15 mg Methotrexate (Rheumatrex) 20 mg PO Q7D [facility] Last Admin: 10/28/18 09:34 Dose: 20 mg Miscellaneous Information ([facility] [place] [facility]) 1 each OTHER UNSCH PRN PRN Reason: SEE LABEL COMMENTS Stop: 11/02/18 21:59 Mupirocin (Bactroban 2% Oint) 1 applicatio TOPICAL BID [facility] Last Admin: 11/02/18 09:52 Dose: Not Given Naloxone HCl (Narcan Inj) 0.4 mg IV.PUSH PRN PRN PRN Reason: SEE LABEL COMMENTS Ondansetron HCl (Zofran Odt) 4 mg PO Q6H PRN PRN Reason: nausea and vomiting Last Admin: 11/02/18 10:26 Dose: 4 mg Pantoprazole Sodium (Protonix) 40 mg PO DAILY [facility] Last Admin: 11/02/18 09:22 Dose: 40 mg Polysaccharide Iron Complex (Nu-Iron) 150 mg PO BID [facility] Last Admin: 11/02/18 09:22 Dose: 150 mg Senna/Docusate Sodium (Avril-Colace) 1 tab PO BID [facility] Last Admin: 11/02/18 09:21 Dose: 1 tab Sodium Chloride (Ns Flush) 2 ml IV.FLUSH BID [facility] Last Admin: 11/02/18 00:49 Dose: Not Given Sodium Chloride (Ns Flush) 2 ml IV.FLUSH PRN PRN PRN Reason: FLUSH AFTER USING IV ACCESS Zinc Sulfate (Zinc-220) 220 mg PO DAILY [facility] Last Admin: 11/02/18 09:20 Dose: 220 mg Allergies Allergy/AdvReac Type Severity Reaction Status Date / Time No Known Allergies Allergy Verified 10/23/18 13:46 Home Medications Medication Instructions Recorded Confirmed Type aspirin [Aspir-Low] 81 mg PO HS 07/22/18 10/23/18 History folic acid 1 mg PO DAILY 07/22/18 10/23/18 History hydrocodone-acetaminophen 1 tab PO Q6H PRN 07/22/18 10/23/18 History hydroxychloroquine 200 mg PO BID 07/22/18 10/23/18 History magnesium 500 mg PO QAM 07/22/18 10/23/18 History meloxicam 15 mg PO QPM 07/22/18 10/23/18 History methotrexate sodium 8 mg PO QWEEK 07/22/18 10/23/18 History Results - Labs CBC & Chem 7: 11/02/18 06:27 11/02/18 07:19 Laboratory Results - last 24 hr 11/02/18 11/02/18 06:27 07:19 WBC 8.0 RBC 2.60 L Hgb 8.3 L Hct 24.6 L MCV 94.4 MCH 31.9 MCHC 33.8 RDW 16.8 Plt Count 329 MPV 7.1 Neut % (Auto) 68.8 Lymph % (Auto) 16.7 [place] % (Auto) 11.2 H Eos % (Auto) 2.3 Baso % (Auto) 1.0 Neut # (Auto) 5.5 Lymph # (Auto) 1.3 [place] # (Auto) 0.9 Eos # (Auto) 0.2 Baso # (Auto) 0.1 WBC Differential . Differential Comment Auto diff final Sodium 142 Potassium 4.4 Chloride 106 Carbon Dioxide 27.7 Anion Gap 8 BUN 16 Creatinine 1.11 Estimated GFR 66 L Random Glucose 66 L Calcium 8.9 Magnesium 2.2 Microbiology 11/01/18 22:25 Wound - Foot Fungal Smear - Final No fungal elements seen 11/01/18 22:25 Wound - Foot Fungal Smear - Final No fungal elements seen 11/01/18 22:25 Wound - Foot Gram Stain - Final 11/01/18 22:25 Wound - Foot Gram Stain - Final - Imaging Impressions Foot X-Ray 11/01/18 00:00 CONCLUSION: Transmetatarsal amputation of the fifth toe. - Procedures right external iliac and common femoral endarterectomy patch angioplasty, right femoral to distal bypass with in situ saphenous vein and a right popliteal endarterectomy 10/26/18 Date of procedure: 11/01/18 Procedure: 1. amputation right 5th toe with debridement of necrotic bone 2. excisional debridement of ulcer right medial foot Assessment and Plan - Assessment (1) Osteomyelitis of toe of right foot Code(s): M86.9 - Osteomyelitis, unspecified Status: Acute (2) Ulcer of right foot with necrosis of muscle Code(s): L97.513 - Non-pressure chronic ulcer of other part of right foot with necrosis of muscle Status: Acute - Plan s/p debridement of necrotic bone right 5th toe and debridement of ulcer right foot 11/01/18 Dr Morgan Bandage clean, dry, intact. Weightbearing as tolerated in surgical shoe OK at a minimum. Await pathology
[2018-11-02] MEDS: Vancomycin Inj 1,250 MG in Sodium Chlor 0.9% Inj 250 ML IV.SIG SCH (16:31)
[2018-11-02] MEDS: Collagenase Oint 30 GM Tube TOPICAL SCH (21:55)
[2018-11-03] MEDS: HYDROmorphone PF Inj 0.5 MG/0.5 ML Syringe IV.PUSH PRN ×5 (02:06→23:20)
[2018-11-03] MEDS: Piperacil/Tazo 4.5 GM Premix 4.5 GM/100 ML BAG IV.SIG SCH ×3 (06:49→23:17)
[2018-11-03] MEDS: Magnesium Oxide 400 MG Tablet PO SCH (09:32)
[2018-11-03] MEDS: Gabapentin 100 MG Capsule PO SCH ×3 (09:32→17:07)
[2018-11-03] MEDS: Polysaccharide Iron Complex 150 MG Capsule PO SCH ×2 (09:32→21:26)
[2018-11-03] MEDS: Lactobacillus Acidophilus/L. Spores Tablet PO SCH ×3 (09:32→17:07)
[2018-11-03] MEDS: Ascorbic Acid 500 MG Tablet PO SCH (09:32)
[2018-11-03] MEDS: Calcium/Vitamin D 250/125 MG Tablet PO SCH ×2 (09:33→21:26)
[2018-11-03] MEDS: Hydroxychloroquine 200 MG Tablet PO SCH ×2 (09:33→21:26)
[2018-11-03] MEDS: Folic Acid 1 MG Tablet PO SCH (09:33)
[2018-11-03] MEDS: Senna/Docusate Sodium 8.6/50 MG Tablet PO SCH ×2 (11:05→21:27)
[2018-11-03] MEDS: Collagenase Oint 30 GM Tube TOPICAL SCH (11:06)
--- NOTE | 2018-11-03 12:16 | P.PNIM ---
Subjective Interval history: Follow-up right foot infection status post surgery. Complains of phantom limb. Reports adequate pain coverage Physical Exam Vital signs: Vital Signs 11/02/18 12:17 11/02/18 16:00 11/02/18 16:29 Temperature 98 F Pulse Rate 80 Respiratory Rate 8 L 18 8 L Blood Pressure 123/70 Pulse Oximetry 95 11/02/18 20:00 11/02/18 23:30 11/03/18 04:00 Temperature 98.0 F 98.5 F 98.3 F Pulse Rate 78 82 75 Respiratory Rate 18 16 17 Blood Pressure 117/59 L 124/61 103/58 L Pulse Oximetry 97 96 97 11/03/18 07:37 11/03/18 09:30 11/03/18 11:33 Temperature 98.2 F 97.9 F Pulse Rate 88 77 Respiratory Rate 18 9 L 20 Blood Pressure 140/69 109/58 L Pulse Oximetry 100 97 Intake & Output 11/02/18 11/03/18 11/03/18 18:59 06:59 18:59 Intake Total 462.5 / 462.5 100 / 100 820 / 820 Output Total 475 / 475 1200 / 1200 Balance -12.5 / -12.5 -1100 / -1100 820 / 820 Weight 72.4 kg Intake: IV 462.5 / 462.5 100 / 100 100 / 100 Zosyn 4.5 GM Premix 4.5 gm In 200 / 200 100 / 100 100 / 100 100 ml @ 200 mls/hr IV.SIG Q8H DEMETRIUS Rx#:[id number] Vancomycin Inj 1,250 MG In NS 262.5 / 262.5 Inj 250 ML @ 262.5 mls/hr IV. SIG Q24H DEMETRIUS Rx#:[id number] Oral 720 / 720 Output: Urine 475 / 475 1200 / 1200 Other: # Voids 1 Date of Last Bowel Movement 11/01/18 11/02/18 # Bowel Movements 1 Narrative: GENERAL: Well-developed and well-nourished SKIN: Warm and dry. CARDIOVASCULAR: Regular rate and rhythm without murmurs, gallops, or rubs. RESPIRATORY: Breath sounds equal bilaterally. No accessory muscle use. GASTROINTESTINAL: Abdomen soft, non-tender, nondistended. Ostomy bag in place MUSCULOSKELETAL: No cyanosis, or edema. Right foot with dry dressing BACK: Nontender without obvious deformity. No CVA tenderness. Urinary Catheter Management Indwelling Urethral Catheter: Cath placed during this visit: yes, but has since been removed by the nurse Reason for continuing: Decision to DC catheter Insertion date: 10/25/18 Insertion time: 13:18 Removal date: 10/26/18 Removal time: 15:30 Results Labs CBC & Chem 7: 11/02/18 06:27 11/02/18 07:19 Labs: Microbiology 11/01/18 22:25 Wound - Foot Gram Stain - Final 11/01/18 22:25 Wound - Foot Wound Culture - Preliminary No growth in 24 hours 11/01/18 22:25 Wound - Foot Gram Stain - Final 11/01/18 22:25 Wound - Foot Wound Culture - Preliminary No growth in 24 hours 11/01/18 22:25 Wound - Foot Fungal Smear - Final No fungal elements seen 11/01/18 22:25 Wound - Foot Fungal Smear - Final No fungal elements seen Procedures Procedures: right external iliac and common femoral endarterectomy patch angioplasty, right femoral to distal bypass with in situ saphenous vein and a right popliteal endarterectomy 10/26/18 Date of procedure: 11/01/18 Procedure: 1. amputation right 5th toe with debridement of necrotic bone 2. excisional debridement of ulcer right medial foot Assessment and Plan (1) Osteomyelitis of toe of right foot: Code(s): M86.9 - Osteomyelitis, unspecified Status: Acute (2) Ulcer of right foot with necrosis of muscle: Code(s): L97.513 - Non-pressure chronic ulcer of other part of right foot with necrosis of muscle Status: Acute Plan SEPSIS resolved Right foot infection with osteomyelitis right fifth toe s/p amputation right 5th toe with debridement of necrotic bone and excisional debridement of ulcer right medial foot. Stable cont abx (IV vancomycin and Zosyn) as patient is immunosuppressed consider holding Plaquenil and methotrexate and has such severe ischemia high risk on infection, cont wound care. PT recommends home care. Continue Neurontin counseled regarding narcotic Acute limb ischemia PVD severe right external iliac, common femoral artery superficial artery popliteal artery occlusion with distal severe stenosis status post right external iliac and common femoral endarterectomy patch angioplasty, right femoral to distal bypass with in situ saphenous vein and a right popliteal endarterectomy10/26/18. Cont asa, statin, apixaban. Cleared for discharge by vascular surgery AKD on ckd stage 3 w metabolic acidosis and hyponatremia better post ivf PERFORATED DIVERTICULOSIS w PERITONITIS and RETROPERITONEAL ABSCESS hx (w MDOR ,VRE MRSA MUKUL, KLEBSIELLA post [facility] iv abx) w ostomy stable RA on chronic plaquenil,mtx immunocompromised, cont pain control DYSLIPIDEMIA on lipitor ANEMIA chronic and acute post op blood loss - mvi, iron OSTEOPENIA chronic cmporession fx L3, LLL PULMONARY NODULE - found on ct, fu ct in 6 mo CAD w stent and CABG hx cont asa VIT D def - vit d supplement dvt prophylaxis - eliquis dispo -home health care Discharge pending ID clearance(await path results) and pain managed with oral medication Progress Note: Quality VTE Deep Vein Thrombosis/Pulmonary Embolism Present on Admission: No
[2018-11-03] MEDS: LORazepam 1 MG Tablet PO PRN (12:31)
--- NOTE | 2018-11-03 15:28 | P.PNID ---
Subjective Remarks: Patient says he feels okay. He underwent debridement of necrotic tissue from the right foot ulcer and amputation of the fifth toe. Wound culture pending. He says his pain is little and that he is requesting less pain medication. Afebrile. Mr. Moreira is a 68-year-old male with past medical history significant for rheumatoid arthritis on methotrexate, history of diverticulitis , history of colonic perforation and retroperitoneal abscess status post surgical intervention and diverting ileostomy. Patient grew multiple bacteria during that admission including VRE as well as Sarita glabrata. Patient was treated with oral antibiotics for the bacteria and discharged home on micafungin IV for Sarita glabrata infection using a PICC line. Patient has been following up with Dr. Douglas for the ileostomy. While at his visit he complained of worsening right foot cellulitis and infection which started about 2 weeks prior to this admission. He had bilateral lower extremity swelling which continued to improve to some extent with compression socks but the right ankle swelling persisted. Patient's thinks that the compression socks may have caused undue pressure on the medial aspect of his right ankle leading to the area of ulceration. Due to worsening foot infection including an area of blackening noted on the medial aspect of the right foot. Patient denies any fever or chills but of note patient is immune compromised. Patient did report feeling very fatigued. Patient denies having been told that he has any vascular issues in the past. Antibiotics: Vanco IV Lines: Lines ok Past Medical History: reviewed Allergies/Adverse Reactions: Allergies No Known Allergies Allergy (Verified 10/23/18 13:46) Objective Vital Signs 11/02/18 16:00 11/02/18 16:29 11/02/18 20:00 Temperature 98 F 98.0 F Pulse Rate 80 78 Respiratory Rate 18 8 L 18 Blood Pressure 123/70 117/59 L Pulse Oximetry 95 97 11/02/18 23:30 11/03/18 04:00 11/03/18 07:37 Temperature 98.5 F 98.3 F 98.2 F Pulse Rate 82 75 88 Respiratory Rate 16 17 18 Blood Pressure 124/61 103/58 L 140/69 Pulse Oximetry 96 97 100 11/03/18 08:00 11/03/18 09:30 11/03/18 11:33 Temperature 97.9 F Pulse Rate 77 Respiratory Rate 16 9 L 20 Blood Pressure 109/58 L Pulse Oximetry 97 11/03/18 13:17 Temperature Pulse Rate Respiratory Rate 9 L Blood Pressure Pulse Oximetry Intake & Output 11/02/18 11/03/18 11/03/18 18:59 06:59 18:59 Intake Total 462.5 / 462.5 100 / 100 820 / 820 Output Total 475 / 475 1200 / 1200 Balance -12.5 / -12.5 -1100 / -1100 820 / 820 Weight 72.4 kg Intake: IV 462.5 / 462.5 100 / 100 100 / 100 Zosyn 4.5 GM Premix 4.5 gm In 200 / 200 100 / 100 100 / 100 100 ml @ 200 mls/hr IV.SIG Q8H [facility]ET[facility] Rx#:[id number] Vancomycin Inj 1,250 MG In NS 262.5 / 262.5 Inj 250 ML @ 262.5 mls/hr IV. SIG Q24H DEMETRIUS Rx#:[id number] Oral 720 / 720 Output: Urine 475 / 475 1200 / 1200 Other: # Voids 1 Date of Last Bowel Movement 11/01/18 11/02/18 11/01/18 # Bowel Movements 1 11/01/18 22:25 Wound - Foot Gram Stain - Final 11/01/18 22:25 Wound - Foot Wound Culture - Preliminary No growth in 24 hours 11/01/18 22:25 Wound - Foot Gram Stain - Final 11/01/18 22:25 Wound - Foot Wound Culture - Preliminary No growth in 24 hours 11/01/18 22:25 Wound - Foot Fungal Smear - Final No fungal elements seen 11/01/18 22:25 Wound - Foot Fungal Culture - Pending 11/01/18 22:25 Wound - Foot Fungal Smear - Final No fungal elements seen 11/01/18 22:25 Wound - Foot Fungal Culture - Pending 11/01/18 22:25 Wound - Foot Acid Fast Bacilli Smear - Pending 11/01/18 22:25 Wound - Foot Mycobacterial Culture - Pending 11/01/18 22:25 Wound - Foot Acid Fast Bacilli Smear - Pending 11/01/18 22:25 Wound - Foot Mycobacterial Culture - Pending Lab - Hematology Results 11/02/18 06:27 WBC 8.0 RBC 2.60 L Hgb 8.3 L Hct 24.6 L MCV 94.4 MCH 31.9 MCHC 33.8 RDW 16.8 Plt Count 329 MPV 7.1 Neut % (Auto) 68.8 Lymph % (Auto) 16.7 [place] % (Auto) 11.2 H Eos % (Auto) 2.3 Baso % (Auto) 1.0 Neut # (Auto) 5.5 Lymph # (Auto) 1.3 [place] # (Auto) 0.9 Eos # (Auto) 0.2 Baso # (Auto) 0.1 WBC Differential . Differential Comment Auto diff final Lab - Chemistry Results 11/02/18 07:19 Sodium 142 Potassium 4.4 Chloride 106 Carbon Dioxide 27.7 Anion Gap 8 BUN 16 Creatinine 1.11 Estimated GFR 66 L Random Glucose 66 L Calcium 8.9 Magnesium 2.2 Imaging: ITS Impressions Venous Doppler Study 10/23/18 00:00 CONCLUSION: 1. The study is negative for lower extremity deep venous thrombosis. Lumbar Spine X-Ray 10/24/18 00:00 CONCLUSION: 1. Age-indeterminate compression deformity involving L3. 10-20% loss of height. 2. Degenerative changes most pronounced at L4-L5. Aorta w/Runoff CTA 10/24/18 13:00 OTHER STRUCTURES: Emphysematous changes within the lung bases. 8 mm nodule within the left lower lobe. Small calcified gallstones within an unremarkable gallbladder. Small nonobstructing renal calculi bilaterally measuring 2 mm. A right lower quadrant ileostomy. A near complete colectomy. Degenerative and scoliotic spine. CONCLUSION: 1. Significant stenosis at the junction of the right external iliac artery and common femoral artery. The rest of the inflow is patent. 2. Both lower extremities show multilevel SFA and popliteal disease including short segment occlusions. Runoff to the feet are via diffusely but mildly diseased trifurcation vessels. 3. 8mm left lower lobe pulmonary nodule. Consider a follow-up CT the chest in 6 months. 4. Cholelithiasis. Lower Extremity Angiography 10/25/18 19:32 CONCLUSION: 1. Uncomplicated embolectomy and angioplasty of the right popliteal artery. Foot MRI 10/31/18 00:00 CONCLUSION: 1. Ill-defined soft tissue edema and enhancement of the fifth toe indicating cellulitis in the proper clinical setting. 2. Focal bony edema and enhancement about the proximal interphalangeal joint of the fifth toe but no corresponding abnormality on the precontrast T1- weighted images. Findings indicate either reactive bony change from adjacent soft tissue infection or early osteomyelitis. Foot X-Ray 11/01/18 00:00 CONCLUSION: Transmetatarsal amputation of the fifth toe. Physical Exam: GENERAL: Well-nourished well-developed, not in acute distress SKIN: Cool and dry, no generalized rash HEAD: Atraumatic. Normocephalic. No temporal or scalp tenderness. EYES: Pupils equal round and reactive. Scleral icterus. No injection or drainage. No petechia ENT: Nothing abnormal detected NECK: Trachea midline. Supple, nontender, no meningeal signs. CARDIOVASCULAR: HS audible. RESPIRATORY: Clear to auscultation bilaterally. GASTROINTESTINAL: Abdomen soft nontender. Ileostomy in place. Surgical site intact with no evidence of infection. MUSCULOSKELETAL: Bilateral hand swan-neck deformity, Heberden's nodes noted. Bilateral knee with surgical scars intact with no evidence of infection. Right foot is post fifth toe amputation and debridement of chronic ulcer at the dorsum of the foot. Dressing in place. No visible drainage. NEUROLOGICAL: Alert oriented 3. Nonfocal. Psych cooperative IV line sites ok. Assessment and Plan (1) Cellulitis Status: Acute Code(s): L03.90 - Cellulitis, unspecified - Plan Right foot cellulitis/soft tissue infection osteo. Status post amputation of right fifth toe. Right foot infected ulcer Probable peripheral arterial as well as vascular disease Rheumatoid arthritis on methotrexate Relative immune deficiency Coronary artery disease Bilateral knee with hardware in place prosthetic joints at risk for seeding Recommendations Continue vancomycin IV target trough 10-15 Continue Zosyn IV for possible new PSAE infection as clinically initially was improving. Concern ongoing small vessel disease from RA may be contributing worsening swelling of the foot. Follow cultures Follow clinical course (1) Cellulitis Qualifiers: Site of cellulitis: extremity Site of cellulitis of extremity: lower extremity Laterality: left Qualified Code(s): L03.116 - Cellulitis of left lower limb
[2018-11-03] MEDS: Vancomycin Inj 1,250 MG in Sodium Chlor 0.9% Inj 250 ML IV.SIG SCH (17:10)
[2018-11-04] MEDS: LORazepam 1 MG Tablet PO PRN ×3 (00:24→17:13)
[2018-11-04] MEDS: HYDROmorphone PF Inj 0.5 MG/0.5 ML Syringe IV.PUSH PRN ×5 (03:47→20:22)
[2018-11-04] MEDS: Piperacil/Tazo 4.5 GM Premix 4.5 GM/100 ML BAG IV.SIG SCH ×3 (06:22→22:43)
[2018-11-04] MEDS: Calcium/Vitamin D 250/125 MG Tablet PO SCH ×2 (08:09→20:25)
[2018-11-04] MEDS: Folic Acid 1 MG Tablet PO SCH (08:09)
[2018-11-04] MEDS: Ascorbic Acid 500 MG Tablet PO SCH (08:09)
[2018-11-04] MEDS: Gabapentin 100 MG Capsule PO SCH ×3 (08:09→17:14)
[2018-11-04] MEDS: Lactobacillus Acidophilus/L. Spores Tablet PO SCH ×3 (08:09→17:14)
[2018-11-04] MEDS: Hydroxychloroquine 200 MG Tablet PO SCH ×2 (08:09→20:26)
[2018-11-04] MEDS: Magnesium Oxide 400 MG Tablet PO SCH (08:09)
[2018-11-04] MEDS: Polysaccharide Iron Complex 150 MG Capsule PO SCH ×2 (08:10→20:25)
[2018-11-04] MEDS: Senna/Docusate Sodium 8.6/50 MG Tablet PO SCH ×2 (08:10→20:26)
[2018-11-04] MEDS: Collagenase Oint 30 GM Tube TOPICAL SCH (08:11)
--- NOTE | 2018-11-04 11:58 | P.PNIM ---
Subjective Interval history: Follow-up right foot infection. Complaining of surgical pain requiring p.o. and IV meds counseled regarding narcotics Physical Exam Vital signs: Vital Signs 11/03/18 13:17 11/03/18 15:37 11/03/18 17:09 Temperature 99 F Pulse Rate 84 Respiratory Rate 9 L 18 8 L Blood Pressure 136/65 Pulse Oximetry 98 11/03/18 20:30 11/04/18 00:25 11/04/18 04:00 Temperature 98.7 F 98.4 F 98.3 F Pulse Rate 81 78 82 Respiratory Rate 20 20 20 Blood Pressure 112/58 L 115/62 124/69 Pulse Oximetry 96 97 95 11/04/18 07:31 11/04/18 08:00 11/04/18 08:10 Temperature 98.8 F Pulse Rate 78 Respiratory Rate 18 16 16 Blood Pressure 116/61 Pulse Oximetry 96 11/04/18 10:28 11/04/18 11:19 Temperature Pulse Rate Respiratory Rate 16 16 Blood Pressure Pulse Oximetry Intake & Output 11/03/18 11/04/18 11/04/18 18:59 06:59 18:59 Intake Total 1905.5 / 1905.5 100 / 100 100 / 100 Balance 1905.5 / 1905.5 100 / 100 100 / 100 Weight 71.1 kg Intake: IV 465.5 / 465.5 100 / 100 100 / 100 Zosyn 4.5 GM Premix 4.5 gm In 200 / 200 100 / 100 100 / 100 100 ml @ 200 mls/hr IV.SIG Q8H [facility]ET[facility] Rx#:[id number] Vancomycin Inj 1,250 MG In NS 265.5 / 265.5 Inj 250 ML @ 262.5 mls/hr IV. SIG Q24H DEMETRIUS Rx#:[id number] Oral 1440 / 1440 Other: # Voids 2 3 # Urine Diapers 1 Date of Last Bowel Movement 11/01/18 11/03/18 11/03/18 # Bowel Movements 1 # Incontinent Bowel Movements 2 Narrative: GENERAL: Well-developed and well-nourished SKIN: Warm and dry. CARDIOVASCULAR: Regular rate and rhythm without murmurs, gallops, or rubs. RESPIRATORY: Breath sounds equal bilaterally. No accessory muscle use. GASTROINTESTINAL: Abdomen soft, non-tender, nondistended. Ostomy bag in place MUSCULOSKELETAL: No cyanosis, or edema. Right foot with dry dressing BACK: Nontender without obvious deformity. No CVA tenderness. Urinary Catheter Management Indwelling Urethral Catheter: Cath placed during this visit: yes, but has since been removed by the nurse Reason for continuing: Decision to DC catheter Insertion date: 10/25/18 Insertion time: 13:18 Removal date: 10/26/18 Removal time: 15:30 Results Labs CBC & Chem 7: 11/02/18 06:27 11/04/18 08:04 Labs: Microbiology 11/01/18 22:25 Wound - Foot Gram Stain - Final 11/01/18 22:25 Wound - Foot Wound Culture - Preliminary No growth in 48 hours 11/01/18 22:25 Wound - Foot Gram Stain - Final 11/01/18 22:25 Wound - Foot Wound Culture - Preliminary No growth in 48 hours Procedures Procedures: right external iliac and common femoral endarterectomy patch angioplasty, right femoral to distal bypass with in situ saphenous vein and a right popliteal endarterectomy 10/26/18 Date of procedure: 11/01/18 Procedure: 1. amputation right 5th toe with debridement of necrotic bone 2. excisional debridement of ulcer right medial foot Assessment and Plan (1) Cellulitis: Code(s): L03.90 - Cellulitis, unspecified Status: Acute Plan SEPSIS resolved Right foot infection with osteomyelitis right fifth toe s/p amputation right 5th toe with debridement of necrotic bone and excisional debridement of ulcer right medial foot. Stable cont abx (IV vancomycin and Zosyn) as patient is immunosuppressed consider holding Plaquenil and methotrexate and has such severe ischemia high risk on infection, cont wound care. PT recommends home care. Continue Neurontin counseled regarding narcotic Acute limb ischemia PVD severe right external iliac, common femoral artery superficial artery popliteal artery occlusion with distal severe stenosis status post right external iliac and common femoral endarterectomy patch angioplasty, right femoral to distal bypass with in situ saphenous vein and a right popliteal endarterectomy10/26/18. Cont asa, statin, apixaban. Discussed with nursing to clarify with podiatry if aspirin and Eliquis can be restarted. Cleared for discharge by vascular surgery AKD on ckd stage 3 w metabolic acidosis and hyponatremia better post ivf PERFORATED DIVERTICULOSIS w PERITONITIS and RETROPERITONEAL ABSCESS hx (w MDOR ,VRE MRSA MUKUL, KLEBSIELLA post [facility] iv abx) w ostomy stable RA on chronic plaquenil,mtx immunocompromised, cont pain control DYSLIPIDEMIA on lipitor ANEMIA chronic and acute post op blood loss - mvi, iron OSTEOPENIA chronic cmporession fx L3, LLL PULMONARY NODULE - found on ct, fu ct in 6 mo CAD w stent and CABG hx cont asa VIT D def - vit d supplement dvt prophylaxis - eliquis dispo -home health care Discharge pending ID clearance(await path results) and pain managed with oral medication Progress Note: Quality VTE Deep Vein Thrombosis/Pulmonary Embolism Present on Admission: No _ (1) Cellulitis Qualifiers: Laterality: left Site of cellulitis: extremity Site of cellulitis of extremity: lower extremity Site of cellulitis of trunk: Qualified Code(s): L03.116 - Cellulitis of left lower limb
--- NOTE | 2018-11-04 15:10 | P.PNPOD ---
Physical Exam Vital signs: Vital Signs 11/03/18 15:37 11/03/18 17:09 11/03/18 20:30 Temperature 99 F 98.7 F Pulse Rate 84 81 Respiratory Rate 18 8 L 20 Blood Pressure 136/65 112/58 L Pulse Oximetry 98 96 11/04/18 00:25 11/04/18 04:00 11/04/18 07:31 Temperature 98.4 F 98.3 F 98.8 F Pulse Rate 78 82 78 Respiratory Rate 20 20 18 Blood Pressure 115/62 124/69 116/61 Pulse Oximetry 97 95 96 11/04/18 08:00 11/04/18 08:10 11/04/18 10:28 Temperature Pulse Rate Respiratory Rate 16 16 16 Blood Pressure Pulse Oximetry 11/04/18 11:19 11/04/18 11:57 11/04/18 12:00 Temperature 98.8 F Pulse Rate 74 Respiratory Rate 16 16 18 Blood Pressure 105/56 L Pulse Oximetry 93 L 11/04/18 14:17 11/04/18 15:05 Temperature Pulse Rate Respiratory Rate 16 16 Blood Pressure Pulse Oximetry Intake & Output 11/03/18 11/04/18 11/04/18 18:59 06:59 18:59 Intake Total 1905.5 / 1905.5 100 / 100 440 / 440 Balance 1905.5 / 1905.5 100 / 100 440 / 440 Weight 71.1 kg Intake: IV 465.5 / 465.5 100 / 100 200 / 200 Zosyn 4.5 GM Premix 4.5 gm In 200 / 200 100 / 100 200 / 200 100 ml @ 200 mls/hr IV.SIG Q8H [facility] Rx#:[id number] Vancomycin Inj 1,250 MG In NS 265.5 / 265.5 Inj 250 ML @ 262.5 mls/hr IV. SIG Q24H [facility] Rx#:[id number] Oral 1440 / 1440 240 / 240 Other: # Voids 2 3 # Urine Diapers 1 Date of Last Bowel Movement 11/01/18 11/03/18 11/03/18 # Bowel Movements 1 # Incontinent Bowel Movements 2 Narrative: suture line dry. No edema/erythema Ulcer to dorsomedial right foot fibrotic base with small granular tissue throughout. No necrosis. No sign of acute infection. Medications and Allergies Active Medications: Active Medications Acetaminophen (Tylenol) 650 mg PO Q6H PRN PRN Reason: FOR FEVER 101 AND HIGHER Hydrocodone Bitart/Acetaminophen (Spring 10/325) 1 tab PO Q4H PRN PRN Reason: PAIN 1-10 Last Admin: 11/04/18 14:17 Dose: 1 tab Apixaban (Eliquis) 5 mg PO BID [facility] Last Admin: 10/31/18 21:58 Dose: Not Given Ascorbic Acid (Vitamin C) 1,000 mg PO DAILY [facility] Last Admin: 11/04/18 08:09 Dose: 1,000 mg Aspirin (Ecotrin) 81 mg PO HS [facility] Last Admin: 10/31/18 21:58 Dose: Not Given Atorvastatin Calcium (Lipitor) 40 mg PO HS [facility] Last Admin: 11/03/18 21:25 Dose: 40 mg Calcium/Vitamin D (Oscal With D 250/125 Mg) 2 tab PO BID [facility] Last Admin: 11/04/18 08:09 Dose: 2 tab Collagenase (Santyl Oint) 1 applicatio TOPICAL DAILY [facility] Last Admin: 11/04/18 08:11 Dose: Not Given Folic Acid (Folic Acid) 1 mg PO DAILY [facility] Last Admin: 11/04/18 08:09 Dose: 1 mg Gabapentin (Neurontin) 100 mg PO TID [facility] Last Admin: 11/04/18 12:00 Dose: 100 mg Hydromorphone HCl (Dilaudid Pf Inj) 0.5 mg IV.PUSH Q4H PRN PRN Reason: BREAKTHROUGH PAIN Last Admin: 11/04/18 11:41 Dose: 0.5 mg Hydroxychloroquine Sulfate (Plaquenil) 200 mg PO BID [facility] Last Admin: 11/04/18 08:09 Dose: 200 mg Pharmacy Profile Note (Vancomycin Consult Pharmacy) 0 mls @ 0 mls/hr OTHER UNSCH [facility] Vancomycin HCl 1,250 mg/ (Sodium Chloride) 262.5 mls @ 262.5 mls/hr IV.SIG Q24H [facility] Last Infusion: 11/03/18 18:15 Dose: Infused Piperacillin/Tazobactam/Dextrose (Zosyn 4.5 Gm Premix) 4.5 gm in 100 mls @ 200 mls/hr IV.SIG Q8H [facility] Last Infusion: 11/04/18 14:33 Dose: Infused Sodium Chloride (Ns Inj) 500 mls @ 30 mls/hr IV.SIG .Q10H [facility] Last Admin: 11/01/18 23:22 Dose: Not Given Lactobacillus Acidophilus (Lactinex) 1 tab PO TID [facility] Last Admin: 11/04/18 12:00 Dose: 1 tab Lorazepam (Ativan) 1 mg PO Q6H PRN PRN Reason: ANXIETY Last Admin: 11/04/18 08:08 Dose: 1 mg Magnesium Oxide (Mag-Ox) 400 mg PO DAILY [facility] Last Admin: 11/04/18 08:09 Dose: 400 mg Meloxicam (Mobic) 15 mg PO DAILY@1800 [facility] Last Admin: 10/26/18 17:06 Dose: 15 mg Methotrexate (Rheumatrex) 20 mg PO Q7D [facility] Last Admin: 11/04/18 08:08 Dose: 20 mg Miscellaneous Information ([facility] Ordered Lab Info) 1 each OTHER ONCE ONE Stop: 11/04/18 16:46 Mupirocin (Bactroban 2% Oint) 1 applicatio TOPICAL BID [facility] Last Admin: 11/04/18 08:10 Dose: Not Given Naloxone HCl (Narcan Inj) 0.4 mg IV.PUSH PRN PRN PRN Reason: SEE LABEL COMMENTS Ondansetron HCl (Zofran Odt) 4 mg PO Q6H PRN PRN Reason: nausea and vomiting Last Admin: 11/04/18 06:22 Dose: 4 mg Pantoprazole Sodium (Protonix) 40 mg PO DAILY [facility] Last Admin: 11/04/18 08:09 Dose: 40 mg Polysaccharide Iron Complex (Nu-Iron) 150 mg PO BID [facility] Last Admin: 11/04/18 08:10 Dose: 150 mg Senna/Docusate Sodium (Avril-Colace) 1 tab PO BID [facility] Last Admin: 11/04/18 08:10 Dose: Not Given Sodium Chloride (Ns Flush) 2 ml IV.FLUSH BID [facility] Last Admin: 11/04/18 08:10 Dose: 2 ml Sodium Chloride (Ns Flush) 2 ml IV.FLUSH PRN PRN PRN Reason: FLUSH AFTER USING IV ACCESS Zinc Sulfate (Zinc-220) 220 mg PO DAILY [facility] Last Admin: 11/04/18 08:09 Dose: 220 mg Allergies Allergy/AdvReac Type Severity Reaction Status Date / Time No Known Allergies Allergy Verified 10/23/18 13:46 Home Medications Medication Instructions Recorded Confirmed Type aspirin [Aspir-Low] 81 mg PO HS 07/22/18 10/23/18 History folic acid 1 mg PO DAILY 07/22/18 10/23/18 History hydrocodone-acetaminophen 1 tab PO Q6H PRN 07/22/18 10/23/18 History hydroxychloroquine 200 mg PO BID 07/22/18 10/23/18 History magnesium 500 mg PO QAM 07/22/18 10/23/18 History meloxicam 15 mg PO QPM 07/22/18 10/23/18 History methotrexate sodium 8 mg PO QWEEK 07/22/18 10/23/18 History Results - Labs CBC & Chem 7: 11/02/18 06:27 11/04/18 08:04 Laboratory Results - last 24 hr 11/04/18 08:04 Creatinine 1.13 Estimated GFR 64 L Microbiology 11/01/18 22:25 Wound - Foot Acid Fast Bacilli Smear - Final No acid fast bacilli seen 11/01/18 22:25 Wound - Foot Acid Fast Bacilli Smear - Final No acid fast bacilli seen 11/01/18 22:25 Wound - Foot Gram Stain - Final 11/01/18 22:25 Wound - Foot Wound Culture - Preliminary No growth in 48 hours 11/01/18 22:25 Wound - Foot Gram Stain - Final 11/01/18 22:25 Wound - Foot Wound Culture - Preliminary No growth in 48 hours - Procedures right external iliac and common femoral endarterectomy patch angioplasty, right femoral to distal bypass with in situ saphenous vein and a right popliteal endarterectomy 10/26/18 Date of procedure: 11/01/18 Procedure: 1. amputation right 5th toe with debridement of necrotic bone 2. excisional debridement of ulcer right medial foot Assessment and Plan - Assessment (1) Osteomyelitis of toe of right foot Code(s): M86.9 - Osteomyelitis, unspecified Status: Acute (2) Ulcer of right foot with necrosis of muscle Code(s): L97.513 - Non-pressure chronic ulcer of other part of right foot with necrosis of muscle Status: Acute - Plan s/p debridement of necrotic bone right 5th toe and debridement of ulcer right foot 11/01/18 Dr Morgan Bandage clean, dry, intact. Changed bandage today. Ordered dressing changes daily per nursing. Needs to continue upon discharge with home health. Patient will follow up with me in clinic in 1 week. Weightbearing as tolerated in surgical shoe OK at a minimum only for needs, like restroom/food. Awaiting pathology
[2018-11-04] MEDS ORDERED: Pharmacy Ordered Lab Info OTHER ONE (16:45)
[2018-11-04] MEDS: Vancomycin Inj 1,250 MG in Sodium Chlor 0.9% Inj 250 ML IV.SIG SCH (17:14)
--- NOTE | 2018-11-04 18:26 | P.PNID ---
Subjective Remarks: Delayed entry patient seen at 3 pm approx. Patient says he feels okay. He underwent debridement of necrotic tissue from the right foot ulcer and amputation of the fifth toe. Wound culture pending. pathology report pending. Afebrile. Mr. Moreira is a 68-year-old male with past medical history significant for rheumatoid arthritis on methotrexate, history of diverticulitis , history of colonic perforation and retroperitoneal abscess status post surgical intervention and diverting ileostomy. Patient grew multiple bacteria during that admission including VRE as well as Sarita glabrata. Patient was treated with oral antibiotics for the bacteria and discharged home on micafungin IV for Sarita glabrata infection using a PICC line. Patient has been following up with Dr. Douglas for the ileostomy. While at his visit he complained of worsening right foot cellulitis and infection which started about 2 weeks prior to this admission. He had bilateral lower extremity swelling which continued to improve to some extent with compression socks but the right ankle swelling persisted. Patient's thinks that the compression socks may have caused undue pressure on the medial aspect of his right ankle leading to the area of ulceration. Due to worsening foot infection including an area of blackening noted on the medial aspect of the right foot. Patient denies any fever or chills but of note patient is immune compromised. Patient did report feeling very fatigued. Patient denies having been told that he has any vascular issues in the past. Antibiotics: Vanco IV Lines: Lines ok Past Medical History: reviewed Allergies/Adverse Reactions: Allergies No Known Allergies Allergy (Verified 10/23/18 13:46) Objective Vital Signs 11/03/18 20:30 11/04/18 00:25 11/04/18 04:00 Temperature 98.7 F 98.4 F 98.3 F Pulse Rate 81 78 82 Respiratory Rate 20 20 20 Blood Pressure 112/58 L 115/62 124/69 Pulse Oximetry 96 97 95 11/04/18 07:31 11/04/18 08:00 11/04/18 08:10 Temperature 98.8 F Pulse Rate 78 Respiratory Rate 18 16 16 Blood Pressure 116/61 Pulse Oximetry 96 11/04/18 10:28 11/04/18 11:19 11/04/18 11:57 Temperature Pulse Rate Respiratory Rate 16 16 16 Blood Pressure Pulse Oximetry 11/04/18 12:00 11/04/18 14:17 11/04/18 15:05 Temperature 98.8 F Pulse Rate 74 Respiratory Rate 18 16 16 Blood Pressure 105/56 L Pulse Oximetry 93 L 11/04/18 15:27 11/04/18 16:27 Temperature 98.8 F Pulse Rate 74 Respiratory Rate 20 16 Blood Pressure 119/59 L Pulse Oximetry 98 Intake & Output 11/03/18 11/04/18 11/04/18 18:59 06:59 18:59 Intake Total 1905.5 / 1905.5 100 / 100 920 / 920 Balance 1905.5 / 1905.5 100 / 100 920 / 920 Weight 71.1 kg Intake: IV 465.5 / 465.5 100 / 100 200 / 200 Zosyn 4.5 GM Premix 4.5 gm In 200 / 200 100 / 100 200 / 200 100 ml @ 200 mls/hr IV.SIG Q8H [facility] Rx#:[id number] Vancomycin Inj 1,250 MG In NS 265.5 / 265.5 Inj 250 ML @ 262.5 mls/hr IV. SIG Q24H [facility] Rx#:[id number] Oral 1440 / 1440 720 / 720 Other: # Voids 2 3 1 # Urine Diapers 1 Date of Last Bowel Movement 11/01/18 11/03/18 11/03/18 # Bowel Movements 1 # Incontinent Bowel Movements 2 2 11/01/18 22:25 Wound - Foot Acid Fast Bacilli Smear - Final No acid fast bacilli seen 11/01/18 22:25 Wound - Foot Mycobacterial Culture - Pending 11/01/18 22:25 Wound - Foot Acid Fast Bacilli Smear - Final No acid fast bacilli seen 11/01/18 22:25 Wound - Foot Mycobacterial Culture - Pending 11/01/18 22:25 Wound - Foot Gram Stain - Final 11/01/18 22:25 Wound - Foot Wound Culture - Preliminary No growth in 48 hours 11/01/18 22:25 Wound - Foot Gram Stain - Final 11/01/18 22:25 Wound - Foot Wound Culture - Preliminary No growth in 48 hours 11/01/18 22:25 Wound - Foot Fungal Smear - Final No fungal elements seen 11/01/18 22:25 Wound - Foot Fungal Culture - Pending 11/01/18 22:25 Wound - Foot Fungal Smear - Final No fungal elements seen 11/01/18 22:25 Wound - Foot Fungal Culture - Pending Lab - Chemistry Results 11/04/18 08:04 Creatinine 1.13 Estimated GFR 64 L Imaging: ITS Impressions Venous Doppler Study 10/23/18 00:00 CONCLUSION: 1. The study is negative for lower extremity deep venous thrombosis. Lumbar Spine X-Ray 10/24/18 00:00 CONCLUSION: 1. Age-indeterminate compression deformity involving L3. 10-20% loss of height. 2. Degenerative changes most pronounced at L4-L5. Aorta w/Runoff CTA 10/24/18 13:00 OTHER STRUCTURES: Emphysematous changes within the lung bases. 8 mm nodule within the left lower lobe. Small calcified gallstones within an unremarkable gallbladder. Small nonobstructing renal calculi bilaterally measuring 2 mm. A right lower quadrant ileostomy. A near complete colectomy. Degenerative and scoliotic spine. CONCLUSION: 1. Significant stenosis at the junction of the right external iliac artery and common femoral artery. The rest of the inflow is patent. 2. Both lower extremities show multilevel SFA and popliteal disease including short segment occlusions. Runoff to the feet are via diffusely but mildly diseased trifurcation vessels. 3. 8mm left lower lobe pulmonary nodule. Consider a follow-up CT the chest in 6 months. 4. Cholelithiasis. Lower Extremity Angiography 10/25/18 19:32 CONCLUSION: 1. Uncomplicated embolectomy and angioplasty of the right popliteal artery. Foot MRI 10/31/18 00:00 CONCLUSION: 1. Ill-defined soft tissue edema and enhancement of the fifth toe indicating cellulitis in the proper clinical setting. 2. Focal bony edema and enhancement about the proximal interphalangeal joint of the fifth toe but no corresponding abnormality on the precontrast T1- weighted images. Findings indicate either reactive bony change from adjacent soft tissue infection or early osteomyelitis. Foot X-Ray 11/01/18 00:00 CONCLUSION: Transmetatarsal amputation of the fifth toe. Physical Exam: GENERAL: Well-nourished well-developed, not in acute distress SKIN: Cool and dry, no generalized rash HEAD: Atraumatic. Normocephalic. No temporal or scalp tenderness. EYES: Pupils equal round and reactive. Scleral icterus. No injection or drainage. No petechia ENT: Nothing abnormal detected NECK: Trachea midline. Supple, nontender, no meningeal signs. CARDIOVASCULAR: HS audible. RESPIRATORY: Clear to auscultation bilaterally. GASTROINTESTINAL: Abdomen soft nontender. Ileostomy in place. Surgical site intact with no evidence of infection. MUSCULOSKELETAL: Bilateral hand swan-neck deformity, Heberden's nodes noted. Bilateral knee with surgical scars intact with no evidence of infection. Right foot in post op dressing. NEUROLOGICAL: Alert oriented 3. Nonfocal. Psych cooperative IV line sites ok. Assessment and Plan (1) Cellulitis Status: Acute Code(s): L03.90 - Cellulitis, unspecified - Plan Right foot cellulitis/soft tissue infection osteo. Status post amputation of right fifth toe. Right foot infected ulcer Probable peripheral arterial as well as vascular disease Rheumatoid arthritis on methotrexate Relative immune deficiency Coronary artery disease Bilateral knee with hardware in place prosthetic joints at risk for seeding Recommendations Continue vancomycin IV target trough 10-15 Continue Zosyn IV for possible new PSAE infection as clinically initially was improving. Follow pathology report to decide IV vs oral antibiotics on discharge. Follow cultures Follow clinical course dw patient and . (1) Cellulitis Qualifiers: Site of cellulitis: extremity Site of cellulitis of extremity: lower extremity Laterality: left Qualified Code(s): L03.116 - Cellulitis of left lower limb
[2018-11-05] MEDS: HYDROmorphone PF Inj 0.5 MG/0.5 ML Syringe IV.PUSH PRN ×6 (00:52→21:12)
--- NOTE | 2018-11-05 05:51 | P.DCO ---
Diagnosis (1) Cellulitis: Status: Acute Physical Therapy Order: Evaluate and treat, Improve ambulation and Strength and gait training Home Health Nursing Order: Medical education, Signs/symptoms of disease process, Medication education-adverse effect, Wound care and dressing changes (Daily dressing change to right foot per nursing: santyl to medial ulceration, adaptic, 4x4. Xeroform to 5th toe incision line, 4x4. Soft roll lightly around foot/ankle. Seamus with minimal compression over soft roll (available bedside).) and Nursing assessment with vital signs Case Management Consult Case Management Consult-Home Health: Yes I have seen patient Zach Moreira on 11/05/18. My clinical findings support the need for the requested home health care services because: Limited mobility due to disease progression and Limited ability to care for self I certify that my clinical findings support that this patient is homebound because: Post-op weakness and Unsafe to leave home unassisted _ (1) Cellulitis Qualifiers: Laterality: left Site of cellulitis: extremity Site of cellulitis of extremity: lower extremity Site of cellulitis of trunk: Qualified Code(s): L03.116 - Cellulitis of left lower limb
[2018-11-05] MEDS: Piperacil/Tazo 4.5 GM Premix 4.5 GM/100 ML BAG IV.SIG SCH ×3 (06:22→23:20)
[2018-11-05] MEDS: LORazepam 1 MG Tablet PO PRN ×3 (06:27→19:07)
[2018-11-05] MEDS: Hydroxychloroquine 200 MG Tablet PO SCH ×2 (08:09→21:13)
[2018-11-05] MEDS: Senna/Docusate Sodium 8.6/50 MG Tablet PO SCH ×2 (08:09→21:17)
[2018-11-05] MEDS: Gabapentin 100 MG Capsule PO SCH ×3 (08:09→16:59)
[2018-11-05] MEDS: Polysaccharide Iron Complex 150 MG Capsule PO SCH ×2 (08:09→21:13)
[2018-11-05] MEDS: Lactobacillus Acidophilus/L. Spores Tablet PO SCH ×3 (08:09→16:59)
[2018-11-05] MEDS: Calcium/Vitamin D 250/125 MG Tablet PO SCH ×2 (08:09→21:13)
[2018-11-05] MEDS: Ascorbic Acid 500 MG Tablet PO SCH (08:09)
[2018-11-05] MEDS: Folic Acid 1 MG Tablet PO SCH (08:09)
[2018-11-05] MEDS: Magnesium Oxide 400 MG Tablet PO SCH (08:09)
[2018-11-05] MEDS: Collagenase Oint 30 GM Tube TOPICAL SCH (08:10)
--- NOTE | 2018-11-05 12:52 | P.PNIM ---
Subjective Interval history: Follow-up right foot infection. Complaining of surgical pain. Discussed with ID, pathology still pending Physical Exam Vital signs: Vital Signs 11/04/18 14:17 11/04/18 15:05 11/04/18 15:27 Temperature 98.8 F Pulse Rate 74 Respiratory Rate 16 16 20 Blood Pressure 119/59 L Pulse Oximetry 98 11/04/18 16:27 11/04/18 18:29 11/04/18 18:56 Temperature Pulse Rate Respiratory Rate 16 16 16 Blood Pressure Pulse Oximetry 11/04/18 20:20 11/05/18 00:00 11/05/18 01:44 Temperature 98.3 F 99.1 F Pulse Rate 81 85 Respiratory Rate 18 18 19 Blood Pressure 129/61 131/79 Pulse Oximetry 99 99 11/05/18 04:11 11/05/18 04:45 11/05/18 07:45 Temperature 97.9 F Pulse Rate 74 Respiratory Rate 18 18 16 Blood Pressure 128/62 Pulse Oximetry 97 11/05/18 08:15 11/05/18 09:29 11/05/18 10:28 Temperature 98.1 F Pulse Rate 80 Respiratory Rate 18 16 16 Blood Pressure 130/81 Pulse Oximetry 97 11/05/18 11:19 Temperature Pulse Rate Respiratory Rate 16 Blood Pressure Pulse Oximetry Intake & Output 11/04/18 11/05/18 11/05/18 18:59 06:59 18:59 Intake Total 1905.5 / 1905.5 100 / 100 100 / 100 Balance 1905.5 / 1905.5 100 / 100 100 / 100 Weight 70.8 kg Intake: IV 465.5 / 465.5 100 / 100 100 / 100 Zosyn 4.5 GM Premix 4.5 gm In 200 / 200 100 / 100 100 / 100 100 ml @ 200 mls/hr IV.SIG Q8H [facility] Rx#:[id number] Vancomycin Inj 1,250 MG In NS 265.5 / 265.5 Inj 250 ML @ 262.5 mls/hr IV. SIG Q24H [facility] Rx#:[id number] Oral 1440 / 1440 Other: # Voids 2 4 Date of Last Bowel Movement 11/03/18 11/04/18 # Bowel Movements 2 # Incontinent Bowel Movements 2 Narrative: GENERAL: Well-developed and well-nourished SKIN: Warm and dry. CARDIOVASCULAR: Regular rate and rhythm without murmurs, gallops, or rubs. RESPIRATORY: Breath sounds equal bilaterally. No accessory muscle use. GASTROINTESTINAL: Abdomen soft, non-tender, nondistended. Ostomy bag in place MUSCULOSKELETAL: No cyanosis, or edema. Right foot with dry dressing BACK: Nontender without obvious deformity. No CVA tenderness. Urinary Catheter Management Indwelling Urethral Catheter: Cath placed during this visit: yes, but has since been removed by the nurse Reason for continuing: Decision to DC catheter Insertion date: 10/25/18 Insertion time: 13:18 Removal date: 10/26/18 Removal time: 15:30 Results Labs CBC & Chem 7: 11/02/18 06:27 11/04/18 08:04 Labs: Microbiology 11/01/18 22:25 Wound - Foot Gram Stain - Final 11/01/18 22:25 Wound - Foot Wound Culture - Final No growth in 72 hours (aerobically and anaerobically ) 11/01/18 22:25 Wound - Foot Gram Stain - Final 11/01/18 22:25 Wound - Foot Wound Culture - Final No growth in 72 hours (aerobically and anaerobically ) 11/01/18 22:25 Wound - Foot Acid Fast Bacilli Smear - Final No acid fast bacilli seen 11/01/18 22:25 Wound - Foot Acid Fast Bacilli Smear - Final No acid fast bacilli seen Imaging Imaging: ITS Impressions Venous Doppler Study 10/23/18 00:00 CONCLUSION: 1. The study is negative for lower extremity deep venous thrombosis. Lumbar Spine X-Ray 10/24/18 00:00 CONCLUSION: 1. Age-indeterminate compression deformity involving L3. 10-20% loss of height. 2. Degenerative changes most pronounced at L4-L5. Aorta w/Runoff CTA 10/24/18 13:00 OTHER STRUCTURES: Emphysematous changes within the lung bases. 8 mm nodule within the left lower lobe. Small calcified gallstones within an unremarkable gallbladder. Small nonobstructing renal calculi bilaterally measuring 2 mm. A right lower quadrant ileostomy. A near complete colectomy. Degenerative and scoliotic spine. CONCLUSION: 1. Significant stenosis at the junction of the right external iliac artery and common femoral artery. The rest of the inflow is patent. 2. Both lower extremities show multilevel SFA and popliteal disease including short segment occlusions. Runoff to the feet are via diffusely but mildly diseased trifurcation vessels. 3. 8mm left lower lobe pulmonary nodule. Consider a follow-up CT the chest in 6 months. 4. Cholelithiasis. Lower Extremity Angiography 10/25/18 19:32 CONCLUSION: 1. Uncomplicated embolectomy and angioplasty of the right popliteal artery. Foot MRI 10/31/18 00:00 CONCLUSION: 1. Ill-defined soft tissue edema and enhancement of the fifth toe indicating cellulitis in the proper clinical setting. 2. Focal bony edema and enhancement about the proximal interphalangeal joint of the fifth toe but no corresponding abnormality on the precontrast T1- weighted images. Findings indicate either reactive bony change from adjacent soft tissue infection or early osteomyelitis. Foot X-Ray 11/01/18 00:00 CONCLUSION: Transmetatarsal amputation of the fifth toe. Procedures Procedures: right external iliac and common femoral endarterectomy patch angioplasty, right femoral to distal bypass with in situ saphenous vein and a right popliteal endarterectomy 10/26/18 Date of procedure: 11/01/18 Procedure: 1. amputation right 5th toe with debridement of necrotic bone 2. excisional debridement of ulcer right medial foot Assessment and Plan (1) Cellulitis: Code(s): L03.90 - Cellulitis, unspecified Status: Acute Plan SEPSIS resolved Right foot infection with osteomyelitis right fifth toe s/p amputation right 5th toe with debridement of necrotic bone and excisional debridement of ulcer right medial foot. Stable cont abx (IV vancomycin and Zosyn) as patient is immunosuppressed consider holding Plaquenil and methotrexate and has such severe ischemia high risk on infection, cont wound care. PT recommends home care. Continue Neurontin counseled regarding narcotic Acute limb ischemia PVD severe right external iliac, common femoral artery superficial artery popliteal artery occlusion with distal severe stenosis status post right external iliac and common femoral endarterectomy patch angioplasty, right femoral to distal bypass with in situ saphenous vein and a right popliteal endarterectomy10/26/18. Cont asa, statin, apixaban. Cleared for discharge by vascular surgery AKD on ckd stage 3 w metabolic acidosis and hyponatremia better post ivf PERFORATED DIVERTICULOSIS w PERITONITIS and RETROPERITONEAL ABSCESS hx (w MDOR ,VRE MRSA MUKUL, KLEBSIELLA post care home iv abx) w ostomy stable RA on chronic plaquenil,mtx immunocompromised, cont pain control DYSLIPIDEMIA on lipitor ANEMIA chronic and acute post op blood loss - mvi, iron OSTEOPENIA chronic cmporession fx L3, LLL PULMONARY NODULE - found on ct, fu ct in 6 mo CAD w stent and CABG hx cont asa VIT D def - vit d supplement dvt prophylaxis - eliquis dispo -home health care Discharge pending ID clearance(await path results) and pain managed with oral medication Progress Note: Quality VTE Deep Vein Thrombosis/Pulmonary Embolism Present on Admission: No _ (1) Cellulitis Qualifiers: Laterality: left Site of cellulitis: extremity Site of cellulitis of extremity: lower extremity Site of cellulitis of trunk: Qualified Code(s): L03.116 - Cellulitis of left lower limb
--- NOTE | 2018-11-05 15:13 | P.PNVS ---
Subjective Subjective/Hospital Course: 68-year-old male known to me from previous encounters for left colon perforation. Patient now with cellulitis and edema of the right foot Patient has stigmata of coronary artery disease vascular disease and cardiovascular degenerative changes. Full workup is in progress CTA with runoff ordered We will continue to follow Full consult dictated Thanks Misael 10/25/2018 The patient has palpable bilateral femoral pulses weaker right than left. Dopplerable popliteal pulses. Right dorsalis pedis and posterior tibial arteries are present and Doppler +1 and on the left side both vessels are present and Doppler +2. The difference is probably due to the swelling of the right foot more so than any decrease to the blood flow in the foot area. Based on this exam patient probably has some degree of proximal disease in the iliac arteries and then likely either occlusion or stenosis of both SFAs. Clinically blood flow to the right leg is more compromised than to the left leg and this would be more of a regular pattern then diabetic pattern but we will see what CTA with runoff shows. I have examined the patient in the office and then in the hospital. Right foot indeed is swollen, mainly in the midfoot area with dorsum of the foot more prominently, edematous, rubor extending from the metatarsophalangeal area all the way up to the ankle. The patient has abrasion on the side of the foot as well as tiny ulcer on the fifth toe. CTA with runoff confirms the above picture somewhat. Patient has fairly tight right iliac stenosis common femoral artery stenosis and then Rady nearly occluded SFA on the right. Popliteal is patent however only just above the trifurcation Beyond trifurcation patient has runoff and vessels are sclerotic. Based on all of the above patient will need right inflow and outflow reconstruction with combination of stents and bypass. Will take patient to the operating room in next 24-48 hours. 10/26/2018 Status post Right external iliac and common femoral endarterectomy and bovine patch angioplasty Right femoral to distal bypass with in situ saphenous vein Right popliteal endarterectomy Right popliteal and distal catheter suction penumbra embolectomy Arteriogram x4 Incisions are clean and dry and patient has a bounding pulse in the saphenous vein graft Excellent posterior tibial and dorsalis pedis pulses and foot is nice and warm Patient can transfer to floor DC heparin start on Eliquis DC [place] DC IV fluids 10/27/2018 Incisions are clean and dry Patient is excellent distal dopplerable pulses and palpable pulse in the saphenous vein in situ graft Should remain on Eliquis Patient was transferred from ICU to medical floor and should definitely be on the surgical floor. I have discussed this with bed placement and nursing office and requested transfer to surgical floor From my point patient can be discharged anytime if okay with infectious disease specialist Follow-up with me in about 2-3 weeks 10/28/2018 Doing very well Excellent flow in the in situ graft Strong +2 dorsalis pedis posterior tibial pulses Incisions are clean and dry Patient doing very well at this time Nothing to add to care from vascular point 10/29/2018 Patient doing well at this time Excellent palpable pulse in the in situ graft and strong dopplerable pulses in the foot Incisions are clean and dry Patient can be discharged from my point any time and I will see him in the office for follow-up at which time we will determine the timing of surgery for reversal of diverting ileostomy 10/31/2018 Patient doing very well Leg is warm and well-perfused and proximal distal pulses are intact patient has a great Palpable pulse in the in situ graft and strong dopplerable dorsalis pedis and posterior tibial Apparently patient had some blanching of his greater toe when he was seen by the infectious disease specialist and I discussed this with her but by the time I got there toe appears to be nice and red so patient might have had some vasospasm and is clearly affected by small vessel disease however no limb threatening or toe threatening ischemia is present at this time Necrotic ulcer of the medial aspect of the hallux addressed by podiatry Podiatry and ID consults greatly appreciated Patient can be discharged anytime 11/01/2018 Patient doing well at this time fem-distal in situ graft is widely patent and palpable Patient is superb right dorsalis pedis and posterior tibial pulse Awaiting debridement by podiatry I discussed the situation of the left foot which may become a problem in the future. Patient now has somewhat pale distal toes and will majority of this is small vessel disease it is indicative of decreased capillary refill and possible problems in the near future On the left side patient also has occlusion of the SFA and proximal popliteal artery with reconstitution of the distal popliteal just underneath the knee replacement with diseased trifurcation vessels however patent down to the foot At this point is certainly would avoid doing any manipulations of the left leg unless absolutely necessary but in the future patient will need left femoral distal bypass as well. 11/02/2018 Still excellent flow to the right foot status post femoral distal in situ bypass Patient is status post resection of the fifth toe and debridement of the ulcer of the medial aspect of the first toe by Dr. Morgan. Dressing is intact Indeed patient has equally diseased left circulation with occlusion of the SFA and proximal popliteal artery but at this point I would abstain from doing any surgery to the left leg till the right side is healed unless there is an absolute emergency 11/05/2018 Patient doing well at this time Right femoral to distal bypass with in situ vein is nice and patent and pulsations are palpable throughout the in situ graft Patient has strong dopplerable distal pulses and foot is warm Debrided the area worked on by podiatry looks nice and clean From my point patient can be discharged anytime and will follow-up in my office in a few weeks to schedule the ileostomy closure Again, sooner related patient will need reconstruction of the floor of the left leg but currently this is not an acute issue and should be on the back burner Objective Vital Signs / I&O: Vital Signs 11/04/18 15:27 11/04/18 16:27 11/04/18 18:29 Temperature 98.8 F Pulse Rate 74 Respiratory Rate 20 16 16 Blood Pressure 119/59 L Pulse Oximetry 98 11/04/18 18:56 11/04/18 20:20 11/05/18 00:00 Temperature 98.3 F 99.1 F Pulse Rate 81 85 Respiratory Rate 16 18 18 Blood Pressure 129/61 131/79 Pulse Oximetry 99 99 11/05/18 01:44 11/05/18 04:11 11/05/18 04:45 Temperature 97.9 F Pulse Rate 74 Respiratory Rate 19 18 18 Blood Pressure 128/62 Pulse Oximetry 97 11/05/18 07:45 11/05/18 08:15 11/05/18 09:29 Temperature 98.1 F Pulse Rate 80 Respiratory Rate 16 18 16 Blood Pressure 130/81 Pulse Oximetry 97 11/05/18 10:28 11/05/18 11:19 11/05/18 12:40 Temperature 97.9 F Pulse Rate 83 Respiratory Rate 16 16 16 Blood Pressure 115/65 Pulse Oximetry 96 11/05/18 14:12 11/05/18 15:09 Temperature Pulse Rate Respiratory Rate 16 16 Blood Pressure Pulse Oximetry Intake & Output 11/04/18 11/05/1819 18:59 06:59 18:59 Intake Total 1905.5 / 1905.5 100 / 100 200 / 200 Balance 1905.5 / 1905.5 100 / 100 200 / 200 Weight 70.8 kg Intake: IV 465.5 / 465.5 100 / 100 200 / 200 Zosyn 4.5 GM Premix 4.5 gm In 200 / 200 100 / 100 200 / 200 100 ml @ 200 mls/hr IV.SIG Q8H [facility] Rx#:[id number] Vancomycin Inj 1,250 MG In NS 265.5 / 265.5 Inj 250 ML @ 262.5 mls/hr IV. SIG Q24H [facility] Rx#:[id number] Oral 1440 / 1440 Other: # Voids 2 4 Date of Last Bowel Movement 11/03/18 11/04/18 # Bowel Movements 2 # Incontinent Bowel Movements 2 Laboratory Results - last 24 hr 11/04/18 16:45 Random Vancomycin 15.4 Microbiology 11/01/18 22:25 Gram Stain - Final Wound - Foot Wound Culture - Final No growth in 72 hours (aerobically and anaerobically) 11/01/18 22:25 Gram Stain - Final Wound - Foot Wound Culture - Final No growth in 72 hours (aerobically and anaerobically) 11/01/18 22:25 Acid Fast Bacilli Smear - Final Wound - Foot No acid fast bacilli seen 11/01/18 22:25 Acid Fast Bacilli Smear - Final Wound - Foot No acid fast bacilli seen
--- NOTE | 2018-11-05 16:36 | P.PNPOD ---
Physical Exam Vital signs: Vital Signs 11/04/18 18:29 11/04/18 18:56 11/04/18 20:20 Temperature 98.3 F Pulse Rate 81 Respiratory Rate 16 16 18 Blood Pressure 129/61 Pulse Oximetry 99 11/05/18 00:00 11/05/18 01:44 11/05/18 04:11 Temperature 99.1 F Pulse Rate 85 Respiratory Rate 18 19 18 Blood Pressure 131/79 Pulse Oximetry 99 11/05/18 04:45 11/05/18 07:45 11/05/18 08:15 Temperature 97.9 F 98.1 F Pulse Rate 74 80 Respiratory Rate 18 16 18 Blood Pressure 128/62 130/81 Pulse Oximetry 97 97 11/05/18 09:29 11/05/18 10:28 11/05/18 11:19 Temperature Pulse Rate Respiratory Rate 16 16 16 Blood Pressure Pulse Oximetry 11/05/18 12:40 11/05/18 14:12 11/05/18 15:09 Temperature 97.9 F Pulse Rate 83 Respiratory Rate 16 16 16 Blood Pressure 115/65 Pulse Oximetry 96 11/05/18 16:18 Temperature Pulse Rate Respiratory Rate 16 Blood Pressure Pulse Oximetry Intake & Output 11/04/18 11/05/18 11/05/18 18:59 06:59 18:59 Intake Total 1905.5 / 1905.5 100 / 100 200 / 200 Balance 1905.5 / 1905.5 100 / 100 200 / 200 Weight 70.8 kg Intake: IV 465.5 / 465.5 100 / 100 200 / 200 Zosyn 4.5 GM Premix 4.5 gm In 200 / 200 100 / 100 200 / 200 100 ml @ 200 mls/hr IV.SIG Q8H [facility] Rx#:[id number] Vancomycin Inj 1,250 MG In NS 265.5 / 265.5 Inj 250 ML @ 262.5 mls/hr IV. SIG Q24H [facility] Rx#:[id number] Oral 1440 / 1440 Other: # Voids 2 4 Date of Last Bowel Movement 11/03/18 11/04/18 # Bowel Movements 2 # Incontinent Bowel Movements 2 Medications and Allergies Active Medications: Active Medications Acetaminophen (Tylenol) 650 mg PO Q6H PRN PRN Reason: FOR FEVER 101 AND HIGHER Hydrocodone Bitart/Acetaminophen ([place] 10/325) 1 tab PO Q4H PRN PRN Reason: PAIN 1-10 Last Admin: 11/05/18 15:09 Dose: 1 tab Apixaban (Eliquis) 5 mg PO BID [facility] Last Admin: 11/05/18 08:09 Dose: 5 mg Ascorbic Acid (Vitamin C) 1,000 mg PO DAILY [facility] Last Admin: 11/05/18 08:09 Dose: 1,000 mg Aspirin (Ecotrin) 81 mg PO [facility] Last Admin: 11/04/18 20:24 Dose: 81 mg Atorvastatin Calcium (Lipitor) 40 mg PO HS [facility] Last Admin: 11/04/18 20:25 Dose: 40 mg Calcium/Vitamin D (Oscal With D 250/125 Mg) 2 tab PO BID [facility] Last Admin: 11/05/18 08:09 Dose: 2 tab Collagenase (Santyl Oint) 1 applicatio TOPICAL DAILY [facility] Last Admin: 11/05/18 08:10 Dose: Not Given Folic Acid (Folic Acid) 1 mg PO DAILY [facility] Last Admin: 11/05/18 08:09 Dose: 1 mg Gabapentin (Neurontin) 100 mg PO TID [facility] Last Admin: 11/05/18 12:32 Dose: 100 mg Hydromorphone HCl (Dilaudid Pf Inj) 0.5 mg IV.PUSH Q4H PRN PRN Reason: BREAKTHROUGH PAIN Last Admin: 11/05/18 13:27 Dose: 0.5 mg Hydroxychloroquine Sulfate (Plaquenil) 200 mg PO BID [facility] Last Admin: 11/05/18 08:09 Dose: 200 mg Pharmacy Profile Note (Vancomycin Consult Pharmacy) 0 mls @ 0 mls/hr OTHER UNSCH [facility] Piperacillin/Tazobactam/Dextrose (Zosyn 4.5 Gm Premix) 4.5 gm in 100 mls @ 200 mls/hr IV.SIG Q8H [facility] Last Infusion: 11/05/18 15:08 Dose: Infused Sodium Chloride (Ns Inj) 500 mls @ 30 mls/hr IV.SIG .Q10H [facility] Last Admin: 11/01/18 23:22 Dose: Not Given Vancomycin HCl 1,000 mg/ (Sodium Chloride) 250 mls @ 250 mls/hr IV.SIG Q24H [facility] Lactobacillus Acidophilus (Lactinex) 1 tab PO TID [facility] Last Admin: 11/05/18 12:32 Dose: 1 tab Lorazepam (Ativan) 1 mg PO Q6H PRN PRN Reason: ANXIETY Last Admin: 11/05/18 13:27 Dose: 1 mg Magnesium Oxide (Mag-Ox) 400 mg PO DAILY [facility] Last Admin: 11/05/18 08:09 Dose: 400 mg Meloxicam (Mobic) 15 mg PO DAILY@1800 [facility] Last Admin: 10/26/18 17:06 Dose: 15 mg Methotrexate (Rheumatrex) 20 mg PO Q7D [facility] Last Admin: 11/04/18 08:08 Dose: 20 mg Miscellaneous Information ([facility] [place] Lab Info) 0 each OTHER ONCE ONE Stop: 11/07/18 16:46 Mupirocin (Bactroban 2% Oint) 1 applicatio TOPICAL BID [facility] Last Admin: 11/05/18 08:08 Dose: Not Given Naloxone HCl (Narcan Inj) 0.4 mg IV.PUSH PRN PRN PRN Reason: SEE LABEL COMMENTS Ondansetron HCl (Zofran Odt) 4 mg PO Q6H PRN PRN Reason: nausea and vomiting Last Admin: 11/05/18 05:13 Dose: 4 mg Pantoprazole Sodium (Protonix) 40 mg PO DAILY [facility] Last Admin: 11/05/18 08:09 Dose: 40 mg Polysaccharide Iron Complex (Nu-Iron) 150 mg PO BID [facility] Last Admin: 11/05/18 08:09 Dose: 150 mg Senna/Docusate Sodium (Avril-Colace) 1 tab PO BID [facility] Last Admin: 11/05/18 08:09 Dose: 1 tab Sodium Chloride (Ns Flush) 2 ml IV.FLUSH BID [facility] Last Admin: 11/05/18 08:08 Dose: 2 ml Sodium Chloride (Ns Flush) 2 ml IV.FLUSH PRN PRN PRN Reason: FLUSH AFTER USING IV ACCESS Zinc Sulfate (Zinc-220) 220 mg PO DAILY [facility] Last Admin: 11/05/18 08:09 Dose: 220 mg Allergies Allergy/AdvReac Type Severity Reaction Status Date / Time No Known Allergies Allergy Verified 10/23/18 13:46 Home Medications Medication Instructions Recorded Confirmed Type aspirin [Aspir-Low] 81 mg PO HS 07/22/18 10/23/18 History folic acid 1 mg PO DAILY 07/22/18 10/23/18 History hydrocodone-acetaminophen 1 tab PO Q6H PRN 07/22/18 10/23/18 History hydroxychloroquine 200 mg PO BID 07/22/18 10/23/18 History magnesium 500 mg PO QAM 07/22/18 10/23/18 History meloxicam 15 mg PO QPM 07/22/18 10/23/18 History methotrexate sodium 8 mg PO QWEEK 07/22/18 10/23/18 History Results - Labs CBC & Chem 7: 11/02/18 06:27 11/04/18 08:04 Laboratory Results - last 24 hr 11/04/18 16:45 Random Vancomycin 15.4 Microbiology 11/01/18 22:25 Wound - Foot Gram Stain - Final 11/01/18 22:25 Wound - Foot Wound Culture - Final No growth in 72 hours (aerobically and anaerobically ) 11/01/18 22:25 Wound - Foot Gram Stain - Final 11/01/18 22:25 Wound - Foot Wound Culture - Final No growth in 72 hours (aerobically and anaerobically ) 11/01/18 22:25 Wound - Foot Acid Fast Bacilli Smear - Final No acid fast bacilli seen 11/01/18 22:25 Wound - Foot Acid Fast Bacilli Smear - Final No acid fast bacilli seen - Procedures right external iliac and common femoral endarterectomy patch angioplasty, right femoral to distal bypass with in situ saphenous vein and a right popliteal endarterectomy 10/26/18 Date of procedure: 11/01/18 Procedure: 1. amputation right 5th toe with debridement of necrotic bone 2. excisional debridement of ulcer right medial foot Assessment and Plan - Assessment (1) Osteomyelitis of toe of right foot Code(s): M86.9 - Osteomyelitis, unspecified Status: Acute (2) Ulcer of right foot with necrosis of muscle Code(s): L97.513 - Non-pressure chronic ulcer of other part of right foot with necrosis of muscle Status: Acute - Plan s/p debridement of necrotic bone right 5th toe and debridement of ulcer right foot 11/01/18 Dr Morgan Pathology: No osteo at 5th met head Ok with discharge from podiatry perspective on 7-10 days broad spectrum oral antibiotics Follow up with me in 1-2 weeks Keep Bandage clean, dry, intact. Changed bandage today. Continue dressing changes daily per nursing. Needs to continue upon discharge with home health. Weightbearing as tolerated in surgical shoe OK at a minimum only for needs, like restroom/food.
[2018-11-05] MEDS: Vancomycin Inj 1,000 MG in Sodium Chlor 0.9% Inj 250 ML IV.SIG SCH (17:00)
[2018-11-06] MEDS: HYDROmorphone PF Inj 0.5 MG/0.5 ML Syringe IV.PUSH PRN ×4 (01:10→13:58)
[2018-11-06] MEDS: Piperacil/Tazo 4.5 GM Premix 4.5 GM/100 ML BAG IV.SIG SCH ×2 (06:33→15:42)
[2018-11-06] MEDS: LORazepam 1 MG Tablet PO PRN ×2 (06:38→12:48)
[2018-11-06] MEDS: Magnesium Oxide 400 MG Tablet PO SCH (09:39)
[2018-11-06] MEDS: Ascorbic Acid 500 MG Tablet PO SCH (09:39)
[2018-11-06] MEDS: Gabapentin 100 MG Capsule PO SCH (09:39)
[2018-11-06] MEDS: Folic Acid 1 MG Tablet PO SCH (09:40)
[2018-11-06] MEDS: Hydroxychloroquine 200 MG Tablet PO SCH (09:40)
[2018-11-06] MEDS: Calcium/Vitamin D 250/125 MG Tablet PO SCH (09:41)
[2018-11-06] MEDS: Polysaccharide Iron Complex 150 MG Capsule PO SCH (09:41)
[2018-11-06] MEDS: Lactobacillus Acidophilus/L. Spores Tablet PO SCH ×2 (09:41→12:08)
--- NOTE | 2018-11-06 10:09 | P.PNIM ---
Subjective Interval history: Follow-up right foot infection complaining of generalized pain from arthritis as well as from surgical pain. Still on IV Dilaudid will switch to oxycodone counseled regarding narcotics. Discussed with JJ LOZANO on doxycycline patient aware he needs to sit upright for 1 hour after intake and to use sunscreen when there is sun exposure Physical Exam Vital signs: Vital Signs 11/05/18 10:28 11/05/18 11:19 11/05/18 12:40 Temperature 97.9 F Pulse Rate 83 Respiratory Rate 16 16 16 Blood Pressure 115/65 Pulse Oximetry 96 11/05/18 14:12 11/05/18 15:09 11/05/18 16:18 Temperature Pulse Rate Respiratory Rate 16 16 16 Blood Pressure Pulse Oximetry 11/05/18 16:20 11/05/18 17:48 11/05/18 19:06 Temperature 97.7 F Pulse Rate 78 Respiratory Rate 18 16 16 Blood Pressure 114/61 Pulse Oximetry 96 11/05/18 20:35 11/06/18 00:30 11/06/18 02:18 Temperature 98.1 F 98.3 F Pulse Rate 82 84 Respiratory Rate 17 18 19 Blood Pressure 130/63 116/63 Pulse Oximetry 98 95 11/06/18 05:15 11/06/18 08:25 Temperature 98.1 F 97.9 F Pulse Rate 81 76 Respiratory Rate 17 20 Blood Pressure 128/61 117/64 Pulse Oximetry 95 96 Intake & Output 11/05/18 11/06/18 11/06/18 18:59 06:59 18:59 Intake Total 200 / 200 350 / 350 100 / 100 Balance 200 / 200 350 / 350 100 / 100 Weight 69.9 kg Intake: IV 200 / 200 350 / 350 100 / 100 Zosyn 4.5 GM Premix 4.5 gm In 200 / 200 100 / 100 100 / 100 100 ml @ 200 mls/hr IV.SIG Q8H [facility] Rx#:[id number] Vancomycin Inj 1,000 MG In NS 250 / 250 Inj 250 ML @ 250 mls/hr IV.SIG Q24H [facility] Rx#:[id number] Other: # Voids 3 Date of Last Bowel Movement 11/06/18 11/05/18 # Bowel Movements 2 Narrative: GENERAL: Well-developed and well-nourished SKIN: Warm and dry. CARDIOVASCULAR: Regular rate and rhythm without murmurs, gallops, or rubs. RESPIRATORY: Breath sounds equal bilaterally. No accessory muscle use. GASTROINTESTINAL: Abdomen soft, non-tender, nondistended. Ostomy bag in place MUSCULOSKELETAL: No cyanosis, or edema. Right foot with dry dressing BACK: Nontender without obvious deformity. No CVA tenderness. Urinary Catheter Management Indwelling Urethral Catheter: Cath placed during this visit: yes, but has since been removed by the nurse Reason for continuing: Decision to DC catheter Insertion date: 10/25/18 Insertion time: 13:18 Removal date: 10/26/18 Removal time: 15:30 Results Labs CBC & Chem 7: 11/02/18 06:27 11/06/18 06:40 Labs: Microbiology 11/01/18 22:25 Wound - Foot Gram Stain - Final 11/01/18 22:25 Wound - Foot Wound Culture - Final No growth in 72 hours (aerobically and anaerobically ) 11/01/18 22:25 Wound - Foot Gram Stain - Final 11/01/18 22:25 Wound - Foot Wound Culture - Final No growth in 72 hours (aerobically and anaerobically ) Imaging Imaging: ITS Impressions Venous Doppler Study 10/23/18 00:00 CONCLUSION: 1. The study is negative for lower extremity deep venous thrombosis. Lumbar Spine X-Ray 10/24/18 00:00 CONCLUSION: 1. Age-indeterminate compression deformity involving L3. 10-20% loss of height. 2. Degenerative changes most pronounced at L4-L5. Aorta w/Runoff CTA 10/24/18 13:00 OTHER STRUCTURES: Emphysematous changes within the lung bases. 8 mm nodule within the left lower lobe. Small calcified gallstones within an unremarkable gallbladder. Small nonobstructing renal calculi bilaterally measuring 2 mm. A right lower quadrant ileostomy. A near complete colectomy. Degenerative and scoliotic spine. CONCLUSION: 1. Significant stenosis at the junction of the right external iliac artery and common femoral artery. The rest of the inflow is patent. 2. Both lower extremities show multilevel SFA and popliteal disease including short segment occlusions. Runoff to the feet are via diffusely but mildly diseased trifurcation vessels. 3. 8mm left lower lobe pulmonary nodule. Consider a follow-up CT the chest in 6 months. 4. Cholelithiasis. Lower Extremity Angiography 10/25/18 19:32 CONCLUSION: 1. Uncomplicated embolectomy and angioplasty of the right popliteal artery. Foot MRI 10/31/18 00:00 CONCLUSION: 1. Ill-defined soft tissue edema and enhancement of the fifth toe indicating cellulitis in the proper clinical setting. 2. Focal bony edema and enhancement about the proximal interphalangeal joint of the fifth toe but no corresponding abnormality on the precontrast T1- weighted images. Findings indicate either reactive bony change from adjacent soft tissue infection or early osteomyelitis. Foot X-Ray 11/01/18 00:00 CONCLUSION: Transmetatarsal amputation of the fifth toe. Procedures Procedures: right external iliac and common femoral endarterectomy patch angioplasty, right femoral to distal bypass with in situ saphenous vein and a right popliteal endarterectomy 10/26/18 Date of procedure: 11/01/18 Procedure: 1. amputation right 5th toe with debridement of necrotic bone 2. excisional debridement of ulcer right medial foot Assessment and Plan (1) Cellulitis: Code(s): L03.90 - Cellulitis, unspecified Status: Acute Plan SEPSIS resolved Right foot infection with osteomyelitis right fifth toe s/p amputation right 5th toe with debridement of necrotic bone and excisional debridement of ulcer right medial foot. Stable switch to doxycycline status IV vancomycin and Zosyn as patient is immunosuppressed consider holding Plaquenil and methotrexate and has such severe ischemia high risk on infection, cont wound care. PT recommends home care. Continue Neurontin counseled regarding narcotic Acute limb ischemia PVD severe right external iliac, common femoral artery superficial artery popliteal artery occlusion with distal severe stenosis status post right external iliac and common femoral endarterectomy patch angioplasty, right femoral to distal bypass with in situ saphenous vein and a right popliteal endarterectomy10/26/18. Cont asa, statin, apixaban. Cleared for discharge by vascular surgery AKD on ckd stage 3 w metabolic acidosis and hyponatremia better post ivf PERFORATED DIVERTICULOSIS w PERITONITIS and RETROPERITONEAL ABSCESS hx (w MDOR ,VRE MRSA MUKUL, KLEBSIELLA post halfway iv abx) w ostomy stable RA on chronic plaquenil,mtx immunocompromised, cont pain control DYSLIPIDEMIA on lipitor ANEMIA chronic and acute post op blood loss - mvi, iron OSTEOPENIA chronic cmporession fx L3, LLL PULMONARY NODULE - found on ct, fu ct in 6 mo CAD w stent and CABG hx cont asa VIT D def - vit d supplement dvt prophylaxis - eliquis dispo -home health care [place] Prescription Drug Monitoring Database has been queried and verified prior to prescribing the controlled subsection. Patient is having significant pain caused by [right foot infection status post surgery] which will last more than 3 days. Trial of alternative treatment options other than prescribed opioids has not helped. I believe that it is medically necessary to treat the patients pain because it is affecting patients ability to [do ADL]. Oxycodone 5 mg added to home prescription of Lortab 10 mg for a total 15 mg(10 mg lortab and 5 mg Oxycodone) QID prn for pain for the next 3 days only to avoid Tylenol toxicity Progress Note: Quality VTE Deep Vein Thrombosis/Pulmonary Embolism Present on Admission: No _ (1) Cellulitis Qualifiers: Laterality: left Site of cellulitis: extremity Site of cellulitis of extremity: lower extremity Site of cellulitis of trunk: Qualified Code(s): L03.116 - Cellulitis of left lower limb
[2018-11-06] MEDS ORDERED: Gabapentin 100 MG Capsule PO SCH (10:14)
[2018-11-06] MEDS: Collagenase Oint 30 GM Tube TOPICAL SCH (10:32)
[2018-11-06] MEDS: Senna/Docusate Sodium 8.6/50 MG Tablet PO SCH (10:32)
--- NOTE | 2018-11-06 13:17 | P.DS ---
DS: Providers Date of admission: 10/23/18 15:33 Primary care physician: UNKNOWN Consults: 10/24/18 09:40 Consult to Infectious Diseases Routine Consulting Provider: Ramila Perez Reason for Consultation: Worsening left foot cellulitis Notified:: Service Spoke with:: Emmie Date Notified:: 10/24/18 Time Notified:: 09:43 Ordering Provider: ROCKY Consult to Vascular Surgery Routine Consulting Provider: Anahy Gilbert Preferred Retail Maintenance Technician:: Anahy Gilbert Patient known to:: Anahy Gilbert Reason for Consultation: patient known to you Notified:: Physician Spoke with:: Dr Gilbert Date Notified:: 10/24/18 Time Notified:: 09:45 Ordering Provider: ROCKY 10/27/18 12:54 Consult to Podiatry Routine Consulting Provider: Leslie Singh Reason for Consultation: foot infection Notified:: Service Spoke with:: Samantha Date Notified:: 10/27/18 Time Notified:: 13:01 Ordering Provider: MARCOS Brief History from admission: 68-year-old male with a recent history of colonic perforation and retroperitoneal abscess status post surgical intervention in diverting ileostomy. The patient presented to Dr. Misael sommers for follow-up today. He complained of worsening right foot cellulitis and infection. Patient reports the symptoms started about 2 weeks ago. He had bilateral leg swelling. Left ankle swelling improved with compression stockings but the right ankle swelling persisted. He has since developed an infection in the right medial foot and right heel. He reports the infection has been getting worse. He saw his primary care physician yesterday and was started on Bactrim. He has not noted any improvement. He has since developed a shallow ulcer of the medial midfoot. He has not had any fevers or chills. However he reports he is feeling very fatigued and his appetite has been very poor. DS: Diagnosis Discharge Diagnosis (1) Cellulitis: Status: Acute DS: Summary SEPSIS resolved Right foot infection with osteomyelitis right fifth toe s/p amputation right 5th toe with debridement of necrotic bone and excisional debridement of ulcer right medial foot. Stable switch to doxycycline status IV vancomycin and Zosyn as patient is immunosuppressed consider holding Plaquenil and methotrexate and has such severe ischemia high risk on infection, cont wound care. PT recommends home care. Continue Neurontin counseled regarding narcotic Acute limb ischemia PVD severe right external iliac, common femoral artery superficial artery popliteal artery occlusion with distal severe stenosis status post right external iliac and common femoral endarterectomy patch angioplasty, right femoral to distal bypass with in situ saphenous vein and a right popliteal endarterectomy10/26/18. Cont asa, statin, apixaban. Cleared for discharge by vascular surgery AKD on ckd stage 3 w metabolic acidosis and hyponatremia better post ivf PERFORATED DIVERTICULOSIS w PERITONITIS and RETROPERITONEAL ABSCESS hx (w MDOR ,VRE MRSA MUKUL, KLEBSIELLA post knockdown worker iv abx) w ostomy stable RA on chronic plaquenil,mtx immunocompromised, cont pain control DYSLIPIDEMIA on lipitor ANEMIA chronic and acute post op blood loss - mvi, iron OSTEOPENIA chronic cmporession fx L3, LLL PULMONARY NODULE - found on ct, fu ct in 6 mo CAD w stent and CABG hx cont asa VIT D def - vit d supplement dvt prophylaxis - [facility] Prescription Drug Monitoring Database has been queried and verified prior to prescribing the controlled subsection. Patient is having significant pain caused by [right foot infection status post surgery] which will last more than 3 days. Trial of alternative treatment options other than prescribed opioids has not helped. I believe that it is medically necessary to treat the patients pain because it is affecting patients ability to [do ADL]. Oxycodone 5 mg added to home prescription of Lortab 10 mg for a total 15 mg(10 mg lortab and 5 mg Oxycodone) QID prn for pain for the next 3 days only to avoid Tylenol toxicity Time Spent with Patient Total time spent providing and/or coordinating discharge services: Greater than 30 minutes Quality: VTE Deep Vein Thrombosis/Pulmonary Embolism Present on Admission: No Exam Narrative Exam Narrative: GENERAL: Well-developed and well-nourished SKIN: Warm and dry. CARDIOVASCULAR: Regular rate and rhythm without murmurs, gallops, or rubs. RESPIRATORY: Breath sounds equal bilaterally. No accessory muscle use. GASTROINTESTINAL: Abdomen soft, non-tender, nondistended. Ostomy bag in place MUSCULOSKELETAL: No cyanosis, or edema. Right foot with dry dressing BACK: Nontender without obvious deformity. No CVA tenderness. Results Procedures completed during hospitalization: right external iliac and common femoral endarterectomy patch angioplasty, right femoral to distal bypass with in situ saphenous vein and a right popliteal endarterectomy 10/26/18 Date of procedure: 11/01/18 Procedure: 1. amputation right 5th toe with debridement of necrotic bone 2. excisional debridement of ulcer right medial foot Completed studies during hospitalization: Pending at discharge 11/01/18 09:12 Surgical [PTH] Routine Labs on day of discharge: Labs from last 24 hours 11/06/18 06:40 Creatinine 1.19 Estimated GFR 61 L Impressions ITS Impressions Venous Doppler Study 10/23/18 00:00 CONCLUSION: 1. The study is negative for lower extremity deep venous thrombosis. Lumbar Spine X-Ray 10/24/18 00:00 CONCLUSION: 1. Age-indeterminate compression deformity involving L3. 10-20% loss of height. 2. Degenerative changes most pronounced at L4-L5. Aorta w/Runoff CTA 10/24/18 13:00 OTHER STRUCTURES: Emphysematous changes within the lung bases. 8 mm nodule within the left lower lobe. Small calcified gallstones within an unremarkable gallbladder. Small nonobstructing renal calculi bilaterally measuring 2 mm. A right lower quadrant ileostomy. A near complete colectomy. Degenerative and scoliotic spine. CONCLUSION: 1. Significant stenosis at the junction of the right external iliac artery and common femoral artery. The rest of the inflow is patent. 2. Both lower extremities show multilevel SFA and popliteal disease including short segment occlusions. Runoff to the feet are via diffusely but mildly diseased trifurcation vessels. 3. 8mm left lower lobe pulmonary nodule. Consider a follow-up CT the chest in 6 months. 4. Cholelithiasis. Lower Extremity Angiography 10/25/18 19:32 CONCLUSION: 1. Uncomplicated embolectomy and angioplasty of the right popliteal artery. Foot MRI 10/31/18 00:00 CONCLUSION: 1. Ill-defined soft tissue edema and enhancement of the fifth toe indicating cellulitis in the proper clinical setting. 2. Focal bony edema and enhancement about the proximal interphalangeal joint of the fifth toe but no corresponding abnormality on the precontrast T1- weighted images. Findings indicate either reactive bony change from adjacent soft tissue infection or early osteomyelitis. Foot X-Ray 11/01/18 00:00 CONCLUSION: Transmetatarsal amputation of the fifth toe. Discharge Plan Discharge Disposition Patient Disposition: Disch W/Home Health Service Discharge Condition Condition: Stable Discharge Order Discharge Orders: Discharge Order (Routine); Ordered 11/06/18 Ordered By: Doron Salas Discharge Details Discharge Comment: dc when abx prescribed by ID Physicians Team ED Provider: Christopher Singh ED Midlevel Provider: Dina Dobson Primary Care Provider: HARRISON, Attending Provider: Doron Salas Other Providers: Ramila Perez ; Anahy Gilbert ; Leslie Singh Rxs /Orders / Referrals /Forms Prescriptions: New polysaccharide iron complex [Poly-Iron] 150 mg iron Capsule 150 mg PO DAILY Qty: 30 RF: 0 zinc sulfate 220 mg Tablet 220 mg PO DAILY Qty: 30 RF: 0 ascorbic acid (vitamin C) [Vitamin C] 500 mg Tablet 1,000 mg PO DAILY Qty: 30 RF: 0 calcium carbonate-vitamin D3 [Oyster Shell Calcium-Vit D3] 250-125 mg-unit Tablet 2 tab PO BID Qty: 120 RF: 0 apixaban [Eliquis] 5 mg Tablet 5 mg PO BID Qty: 60 RF: 0 gabapentin 100 mg Capsule 200 mg PO TID Qty: 180 RF: 0 oxycodone 5 mg capsule 5 mg PO Q6H Qty: 12 RF: 0 doxycycline hyclate 100 mg capsule 100 mg PO BID 10 Days Qty: 20 RF: 0 Continue meloxicam 15 mg Tablet 15 mg PO QPM RF: 0 hydrocodone-acetaminophen 10-325 mg Tablet 1 tab PO Q6H PRN (Reason: Pain) RF: 0 aspirin [Aspir-Low] 81 mg Tablet,Delayed Release (Dr/Ec) 81 mg PO HS RF: 0 methotrexate sodium 2.5 mg Tablet 8 mg PO QWEEK RF: 0 folic acid 1 mg Tablet 1 mg PO DAILY RF: 0 magnesium 250 mg Tablet 500 mg PO QAM RF: 0 hydroxychloroquine 200 mg Tablet 200 mg PO BID RF: 0 atorvastatin [Lipitor] 40 mg Tablet 40 mg PO HS Qty: 30 RF: 1 acidophilus-sporogenes [Acidophilus Ex Str (L. sporog)] 35 million- 25 million cell Tablet 1 tab PO TID Qty: 60 RF: 0 omeprazole 20 mg capsule,delayed release(DR/EC) 20 mg PO DAILY Qty: 30 RF: 0 ondansetron 4 mg tablet,disintegrating 4 mg PO Q6H PRN (Reason: nausea and vomiting) Qty: 20 RF: 0 Ambulatory Orders / Order Sets / DME: Walker With Front Wheels (1 each) (Routine) Location: Determined by Patient Ordered By: Doron Salas Wheelchair (1 each) (Routine) Location: Determined by Patient Ordered By: Doron Salas Referrals: Rachel Morgan DPM [Physician] - 11/14/18 3:30 am (1 week f/p) Nurse Ed,Agency [Agency] - See Instructions Anahy Gilbert MD [Physician] - 11/26/18 10:30 am (Follow-up in 2-3-week Please call to schedule appt.) Discharge Instructions Patient Printed Instructions: Doxycycline (By mouth), Oxycodone/Acetaminophen ( By mouth), Zinc Sulfate (By mouth), Ascorbic Acid (By mouth), Gabapentin (By mouth), Calcium/Vitamin D Supplement (By mouth), Apixaban (By mouth) Additional Instructions: Your Health Problems: Goals to Promote Your Health: * To prevent worsening of your condition * To maintain your health at the optimal level Directions to Meet Your Goals: * Take your medications as prescribed * Follow your dietary instruction * Follow activity as directed * Keep your appointments as scheduled * Take your immunizations and boosters as scheduled * If your symptoms worsen call your PCP * If no PCP go to Urgent Care or Emergency Room Smoking is dangerous to your health. Avoid second hand smoke. You may reach the 24-hour crisis hotline for domestic abuse at . Home health dressing change instructions for Right foot: Daily Santyl to dorsomedial right foot ulcer, adaptic over wound, 4x4. Daily xeroform and 4x4 over lateral incision line (NO ointment). Soft roll and light stella over foot/ankle. Follow up with Podiatry 1 week after discharge Please make an appointment with Dr. Mayela Davis, your primary care physician, in 1 week. Post Discharge Care Plan Care Plan Goals: Your Health Problems: Goals to Promote Your Health: * To prevent worsening of your condition * To maintain your health at the optimal level Directions to Meet Your Goals: * Take your medications as prescribed * Follow your dietary instruction * Follow activity as directed * Keep your appointments as scheduled * Take your immunizations and boosters as scheduled * If your symptoms worsen call your PCP * If no PCP go to Urgent Care or Emergency Room Smoking is dangerous to your health. Avoid second hand smoke. You may reach the 24-hour crisis hotline for domestic abuse at . Status ED Status: Left Department Discharge Information Discharge Date/Time: 11/06/18 17:10
--- NOTE | 2018-11-06 13:22 | P.PNADD ---
Addendum to Inpatient Note Reason for Addendum: Additional Documentation Additional information: Recd call from Bone biopsy clear margins. Cultures negative. Podiatry cleared patient. Last examined foot surgical site looked good per podiatry. Ok to discharge on oral doxy tab 100 mg po bid for 10 days. Breastfeeding Peer Counselor for sunscreen usage Breastfeeding Peer Counselor for pill induced esophagitis and sitting upright after doxy. dw who will address these. Will sign off please call back if any change in clinical condition or questions.
[2018-11-06] MEDS: Vancomycin Inj 1,000 MG in Sodium Chlor 0.9% Inj 250 ML IV.SIG SCH (17:06)
[2018-11-07] MEDS ORDERED: Pharmacy Ordered Lab Info OTHER ONE (16:45)
== END 2018-11-06 17:10 | disposition home health service (06) | DRG 854 ==
LOC: NEDA 12:11 → NEPC 12:11 → OBSVTOIN 15:33 → N07 16:13 → N03 10-25 18:47 → N04 10-26 22:53 → N05 10-27 16:33
PROVIDERS: ADMIT Internal Medicine; ATTEND Internal Medicine
DX: D84.9 Immunodeficiency, unspecified; I25.10 Atherosclerotic heart disease of native coronary artery without angina pectoris; K21.9 Gastro-esophageal reflux disease without esophagitis; M85.88 Other specified disorders of bone density and structure, other site; L97.513 Non-pressure chronic ulcer of other part of right foot with necrosis of muscle; L97.413 Non-pressure chronic ulcer of right heel and midfoot with necrosis of muscle; Z96.653 Presence of artificial knee joint, bilateral; L03.115 Cellulitis of right lower limb; M19.90 Unspecified osteoarthritis, unspecified site; M20.031 Swan-neck deformity of right finger(s); R91.1 Solitary pulmonary nodule; M20.032 Swan-neck deformity of left finger(s); E78.5 Hyperlipidemia, unspecified; E55.9 Vitamin D deficiency, unspecified; M06.9 Rheumatoid arthritis, unspecified; N18.3 Chronic kidney disease, stage 3 (moderate); A41.9 Sepsis, unspecified organism; M48.56XA Collapsed vertebra, not elsewhere classified, lumbar region, initial encounter for fracture; D62 Acute posthemorrhagic anemia; E87.1 Hypo-osmolality and hyponatremia; Z87.891 Personal history of nicotine dependence; Z95.1 Presence of aortocoronary bypass graft; M86.171 Other acute osteomyelitis, right ankle and foot; I12.9 Hypertensive chronic kidney disease with stage 1 through stage 4 chronic kidney disease, or unspecified chronic kidney disease; I70.234 Atherosclerosis of native arteries of right leg with ulceration of heel and midfoot; R63.4 Abnormal weight loss; Z95.5 Presence of coronary angioplasty implant and graft; K57.90 Diverticulosis of intestine, part unspecified, without perforation or abscess without bleeding; Z79.52 Long term (current) use of systemic steroids; Z93.2 Ileostomy status; E87.2 Acidosis
CPT/HCPCS: 36246; 36430; 37184; 37228; 72110; 73630; 73720; 75635; 75710; 76937; 80048; 80053; 80202; 82306; 82565; 83036; 83605; 83735; 85014; 85018; 85025; 85027; 85610; 85730; 86850; 86900; 86901; 86923; 87015; 87040; 87070; 87102; 87116; 87205; 87206; 88304; 88305; 88307; 88311; 90774; 90784; 93005; 93971; 96374; 97110; 97116; 97162; 97167; 97530; 97535; 99145; 99152; 99153; 99285; A4646; A9585; C1725; C1760; C1769; C1887; C1893; C1894; C8952; J0131; J1170; J1644; J1720; J1885; J1956; J2250; J2270; J2370; J2405; J2543; J2704; J2720; J3010; J3370; J7030; J7050; J7060; J7120; J8610; L3250; P9016; Q9949; Q9967